=== PATIENT | female | born 1955 | race Caucasian/White ===

== ENCOUNTER 2019-05-25 15:05 | Outpatient (CLI) | payer MEDICARE, MEDICAID, SELFPAY ==
--- NOTE | 2019-05-25 15:08 | ECG_ITS ---
Measurements Intervals [place] Rate: 80 P: 62 FL: 159 QRS: 76 QRSD: 102 T: 39 QT: 385 QTc: 447 Interpretive Statements SINUS RHYTHM BORDERLINE ST-T WAVE ABNORMALITY- ANT/INF LEADS BASELINE ARTIFACT- I, II, III, AVR, AVL, AVF, V1-V6 BORDERLINE ECG Electronically Signed On 05-25-2019 16:51:55 NYLON HOT WIRE CUTTER by Des Canales D.O.
[2019-05-25 16:24] LABS: Prothrombin Time 12.7 Seconds (11.1-14.7)
[2019-05-25 16:25] LABS: Partial Thromboplastin Time 41.4 SECONDS (22.3-36.8)
[2019-05-25 16:27] LABS: Blood Urea Nitrogen 11 mg/dL (7-17); Calcium 9.7 mg/dL (8.4-10.2); Carbon Dioxide 32 mmol/L (22-30); Chloride 96 mmol/L (98-107); Estimated Glomerular Filt Rate > 60; Glucose 134 mg/dL (65-105); Potassium 3.3 mmol/L (3.4-5.0); Sodium 139 mmol/L (137-145)
== END 2019-05-25 15:06 | disposition home or self-care (01) ==
PROVIDERS: Anesthesiology; PCP Internal Medicine; Visit Provider Urology
DX: Z51.81 Encounter for therapeutic drug level monitoring (principal); F17.200 Nicotine dependence, unspecified, uncomplicated; N20.0 Calculus of kidney; R94.31 Abnormal electrocardiogram [ECG] [EKG]
CPT/HCPCS: 36415; 80048; 85610; 85730; 87086; 87088; 93005

== ENCOUNTER 2019-06-01 00:33 | Day surgery (SDC) | payer MEDICARE, MEDICAID, SELFPAY ==
[2019-05-22 10:57] VITALS: BMI 28.2
[2019-06-01] VITALS (7 sets, daily range): BP systolic 122–173; BP diastolic 65–95; PULSE 76–83; RESP 12–20; TEMP 36.8; O2SAT 91–99
--- NOTE | ~2019-06-01 | XR_ITS ---
EXAMINATION: XR abdomen/kub 1V DATE: 06/01/2019 06:44 INDICATION: Right renal stone. TECHNIQUE: A supine view of the abdomen on 2 radiographs was obtained. COMPARISON: CT abdomen and pelvis 05/07/2019 FINDINGS: There are no dilated loops of bowel. There are phleboliths in the pelvis. There is a 3 mm s tone in right kidney upper pole. There are vascular calcifications at the ester of the kidneys. Surgic al clips in the right upper quadrant are likely from cholecystectomy. IMPRESSION: 1. 3 mm right kidney stone. Reviewed, dictated and finalized at location A. MIXER OPERATOR IMPRESSION: 1. 3 mm right kidney stone.
--- NOTE | 2019-06-01 07:12 | WPDANESEPPF ---
Anes - Initial Pre Proc Eval Procedure: Operation Date: 06/01/19 08:30 Proposed Procedures p Right Extracorporeal Shock Wave Lithotripsy - Tacos Bowers MD Date/Time: 06/01/19 07:12 Surgeon: Tacos Bowers MD Pre Op Diagnosis: right kidney stone Patient Data Age: 63 Gender: F Height: 5 ft 6 in Weight: 79.38 kg Allergies Allergy/AdvReac Type Severity Reaction Status Date / Time amitriptyline [From Elavil] Allergy Unknown unknown Unverified 05/25/19 08:09 oxybutynin Allergy Unknown unknown Unverified 05/25/19 08:09 Penicillins Allergy Unknown Rash Verified 05/24/19 12:49 Sulfa (Sulfonamide Allergy Unknown Hives Verified 05/24/19 12:49 Antibiotics) sulfanilamide Allergy Unknown Hives Verified 05/24/19 12:49 tetracycline Allergy Unknown Nausea Verified 05/24/19 12:49 codeine AdvReac Unknown N/V Verified 05/24/19 12:49 AMITRIPTYLINE HCL Allergy Intermediate PSYCHOSIS Uncoded 05/24/19 12:49 Home Medications Medication Instructions Recorded Confirmed Type hydrochlorothiazide 25 mg tablet 25 mg PO DAILY #90 tablet 03/12/19 05/22/19 Rx aspirin 81 mg tablet,delayed 81 mg PO DAILY 04/05/19 05/22/19 History release carvedilol 3.125 mg tablet 3.125 mg PO Q12H #180 tablet 04/20/19 05/22/19 Rx venlafaxine 150 mg 150 mg PO DAILY #90 cap 04/20/19 05/22/19 Rx capsule,extended release 24 hr lovastatin 20 mg tablet 20 mg PO DAILY #90 tablet 04/23/19 05/22/19 Rx hydrocodone 10 mg-acetaminophen 1 tablet PO TID PRN #90 tablet 05/07/19 05/22/19 Rx 325 mg tablet alprazolam 1 mg tablet 1 mg PO TID PRN #90 tablet 05/10/19 05/22/19 Rx polyethylene glycol 3350 [Miralax] 17 g PO DAILY 05/22/19 05/22/19 History quetiapine [Seroquel] 300 mg PO QPM 05/22/19 05/22/19 History valacyclovir 2,000 mg PO BID PRN 05/22/19 05/22/19 History Patient hx anesthesia problems: none Family hx anesthesia problems: none [facility] Past Medical History Medical History Cholecystectomy planned Depression High cholesterol Kidney disease Kidney stones Pneumonia Urinary frequency Vision abnormalities Weight gain Surgical History Surgical History H/O colonoscopy History of esophagogastroduodenoscopy (EGD) History of laryngoscopy History of partial hysterectomy Hx of tonsillectomy Family History Family History Sibling Patient's brother is in good health Mother Family history of coronary artery disease Father Patient's father is Other Family history of mental disorder Social History Social History Smoking packs per day: 1 Smoking cigarettes per day: 20.0 Years smoked: 45 Smoking pack-years: 45.00 Smoking status: Heavy tobacco smoker Tobacco type: cigarettes Alcohol intake: never Anes - Eval Final PreProcedure Day of Procedure 06/01/19 07:12 Patient weight: overweight Heart: regular rate and rhythm Lungs: clear to auscultation Airway: Mallampati scale class II Neurological: alert and oriented Last oral intake: >/= 8 hours ASA classification: III Emergent: no Anesthetic plan: proceed Anesthesia type and monitoring: general LMA and standard monitoring Informed Consent: The patient's anesthetic plan and its attendant risks and benefits were discussed with the patient/family/POA. Questions were solicited and answers provided to the satisfaction of the patient/family/POA.
--- NOTE | 2019-06-01 07:18 | WPDHPUPDATE1 ---
History and Physical Update Update Date/Time: 06/01/19 07:18 History and Physical has been reviewed, including an updated exam of the patient. There are NO changes in the patient's condition. Risks, benefits, and alternatives have been discussed and questions answered. Patient agrees to proceed with procedure.
[2019-06-01] MEDS: LACTATED RINGERS 1,000 ML 30 ML IV CONT ×2 (08:05→09:43)
[2019-06-01] MEDS: levoFLOXacin 500 MG/D5W 100 ML 500 MG/100 ML BAG 100 MG IVPB (08:52)
--- NOTE | 2019-06-01 09:31 | PM.PROC ---
Procedure Note - Detailed Date of procedure: 06/01/19 Pre-op diagnosis: right kidney stone Post-op diagnosis: same Procedure performed: Right ESWL Description of procedure: The patient was brought to the operative suite where she was placed in the supine position on the Dornier lithotripsy table. The focal point of the lithotripter was placed first at a 6mm right mid-pole renal calculus. 1800 shocks were delivered at a power setting of 7. We then treated a smaller 3mm stone with an additional 700 shocks at the same power setting. There appeared to be good fragmentation of the stones. The patient tolerated the procedure well and was taken to the recovery room in good condition. Anesthesia: GLMA Surgeon: Tacos Bowers MD Estimated blood loss (mL): 0 Drains: No Packing: No Pathology: yes Complications: No immediate complications Condition: stable Disposition: PACU
[2019-06-01] MEDS: ONDANSETRON INJ 4 MG/2 ML VIAL IV PUSH (10:05)
== END 2019-06-01 11:25 | disposition home or self-care (01) ==
PROVIDERS: PCP Internal Medicine; Visit Provider Urology
PROC: (CPT 50590; principal; 2019-06-01 08:30)
DX: N20.0 Calculus of kidney (principal); E78.00 Pure hypercholesterolemia, unspecified; N28.9 Disorder of kidney and ureter, unspecified; F32.9 Major depressive disorder, single episode, unspecified; Z79.82 Long term (current) use of aspirin; F17.210 Nicotine dependence, cigarettes, uncomplicated
CPT/HCPCS: 50590; 36415; 74018; 85730; J0131; J1100; J1956; J2250; J2405; J2704; J7120

== ENCOUNTER 2019-06-12 12:05 | Outpatient (CLI) | payer MEDICARE, MEDICAID, SELFPAY ==
--- NOTE | ~2019-06-12 | XR_ITS ---
EXAMINATION: XR abdomen/kub 1V DATE: 06/12/2019 12:20 INDICATION: Right upper quadrant abdominal pain. TECHNIQUE: A supine view of the abdomen on 2 radiographs was obtained. COMPARISON: Abdomen radiographs 06/01/2019, CT abdomen and pelvis 05/15/2019 FINDINGS: There are no dilated loops of bowel. Surgical clips in the right upper quadrant are likely from cholecystectomy. There is a 3 mm stone in right kidney. There are phleboliths in right pelvis. T here are vascular calcifications at the ester of the kidneys. IMPRESSION: 1. 3 mm right kidney stone. Reviewed, dictated and finalized at location A. ESS TRAINER IMPRESSION: 1. 3 mm right kidney stone.
== END 2019-06-12 12:06 | disposition home or self-care (01) ==
LOC: ANHIMG 12:07
PROVIDERS: PCP Internal Medicine
DX: N20.0 Calculus of kidney (principal)
CPT/HCPCS: 74018

== ENCOUNTER 2019-07-06 08:13 | Outpatient (CLI) | payer MEDICARE, MEDICAID, SELFPAY ==
--- NOTE | ~2019-07-06 | CT_ITS ---
EXAMINATION: CT abdomen pelvis wo/w con DATE: 07/06/2019 09:25 INDICATION: Right upper quadrant abdominal and back pain TECHNIQUE: Computed tomography (CT) of the abdomen and pelvis was performed without and subsequently with 130 cc Omnipaque 350 intravenous contrast. Automated exposure control and iterative reconstructi on technique were employed. Exam dose: 1416.42 mGy-cm total exam DLP. COMPARISON: None. FINDINGS: The lung bases are clear of infiltrate or consolidation. Normal heart size. No pericardial or pleural effusion. Status post cholecystectomy. Approximately 3 mm and 5 mm nonspecific cystic lesions in the region of the pancreatic tail. Approximately 3 mm nonobstructing calculus of upper pole of right kidney. There are two approximately 7 mm right renal cysts. There are diverticula of the colon. No evidence of diverticulitis. No bowel obstruction or intraper itoneal free air. There is extensive abdominal aortic and renal and iliac artery calcification. No intraperitoneal or retroperitoneal mass lesion or lymphadenopathy or ascites. There is severe degenerative disc disease at L5-S1. There is grade 1 anterolisthesis at L4-5. Normal urinary bladder. Status post hysterectomy. IMPRESSION: Status post cholecystectomy Nonspecific 3mm and 5 mm pancreatic tail cystic lesions; consider [address] abdomen follow up Status post hysterectomy Nonobstructive right nephrolithiasis Right renal cysts Diverticulosis of the colon Reviewed, dictated and finalized at Location A. Reviewed, dictated and finalized at location B. IMPRESSION: Status post cholecystectomy Nonspecific 3mm and 5 mm pancreatic tail cystic lesions; consider [address] ab domen follow up Status post hysterectomy Nonobstructive right nephrolithiasis Right renal cysts Diverticulosis of the colon
[2019-07-06 09:00] LABS: Estimated Glomerular Filt Rate > 60
== END 2019-07-06 08:14 | disposition home or self-care (01) ==
PROVIDERS: PCP Internal Medicine; Visit Provider Urology
DX: N20.0 Calculus of kidney (principal); K57.30 Diverticulosis of large intestine without perforation or abscess without bleeding; Z90.49 Acquired absence of other specified parts of digestive tract
CPT/HCPCS: 36415; 74178; Q9967

== ENCOUNTER 2020-04-01 15:38 | Observation (INO) | payer MEDICARE, MEDICAID, SELFPAY ==
[2020-04-01] VITALS (17 sets, daily range): BP systolic 126–148; BP diastolic 59–84; PULSE 70–86; RESP 10–20; TEMP 35.7–37.1; O2SAT 91–99
--- NOTE | ~2020-04-01 | XR_ITS ---
EXAMINATION: XR chest 2V EXAM DATE: 04/01/2020 16:49 INDICATION: Chest pain left-sided chest pain since yesterday. Right jaw pain, COPD. TECHNIQUE: Frontal and lateral projections of the chest obtained and reviewed. Comparison is made to prior examination from 11/02/2018. FINDINGS: Some ill-defined small patchy bibasilar atelectasis or infection, clinical correlation. No pneumothorax or pleural effusion. Cardiomediastinal silhouette is normal. There is aortic arterioscle rosis. There are mild bony degenerative changes. There are cholecystectomy clips. IMPRESSION: Ill-defined small bibasilar atelectasis or infection, clinical correlation. Reviewed, dictated and finalized at location A. BOOKBINDER IMPRESSION: Ill-defined small bibasilar atelectasis or infection, clinical cor relation.
--- NOTE | 2020-04-01 15:39 | ED.GENADULT ---
HPI - General Adult General Chief complaint: Unspecified Stated complaint: LIGHTHEADED Time Seen by Provider: 04/01/20 15:38 Source: patient and EMS Mode of arrival: EMS Limitations: no limitations History of Present Illness HPI narrative: The patient is a 64 yo female with a PMH of COPD, HTN, HLD, who presents for evaluation of jaw pain and chest pain. Pt with jaw pain beginning one week ago, initially in the left jaw. Pain today was in the right jaw, started suddenly and lasted ten minutes. Pain was rated 5/10 in severity. Pt has some associated central chest tightness with the jaw pain today. Both of these lasted ten minutes and they are now resolved. Pt with associated nausea. Pt denies feeling sweaty, vomiting, or palpitations. No associated dyspnea. No pain currently. No back pain. She reports chronic cough. Pt primary care physician was contacted (Dr. Will) and he referred her to the nearest ED. Related Data Home Medications Medication Instructions Recorded Confirmed aspirin 81 mg tablet,delayed 81 mg PO DAILY 04/05/19 02/05/20 release polyethylene glycol 3350 [Miralax] 17 g PO DAILY 05/22/19 02/05/20 Allergies Allergy/AdvReac Type Severity Reaction Status Date / Time amitriptyline [From Elavil] Allergy Unknown unknown Verified 02/05/20 13:56 oxybutynin Allergy Unknown unknown Verified 02/05/20 13:56 Penicillins Allergy Unknown Rash Verified 02/05/20 13:56 Sulfa (Sulfonamide Allergy Unknown Hives Verified 02/05/20 13:56 Antibiotics) sulfanilamide Allergy Unknown Hives Verified 02/05/20 13:56 tetracycline Allergy Unknown Nausea Verified 02/05/20 13:56 ciprofloxacin AdvReac Intermediate Shakiness Verified 02/05/20 13:56 codeine AdvReac Unknown N/V Verified 02/05/20 13:48 AMITRIPTYLINE HCL Allergy Intermediate PSYCHOSIS Uncoded 02/05/20 13:48 Review of Systems Review of Systems: Narrative: CONSTITUTIONAL: Denies fever, chills, or sweats. EYES: Denies visual changes, redness, or discharge. ENT: Denies rhinorrhea, congestion, sore throat, or otalgia. CARDIOVASCULAR: Denies current chest pain, palpitations, or edema. RESPIRATORY: Reports chronic cough, no current dyspnea GASTROINTESTINAL: Denies current abdominal pain, nausea, vomiting, or diarrhea. GENITOURINARY: Denies dysuria or hematuria. SKIN: Denies rash or itching. MUSCULOSKELETAL: Denies back pain, joint pain, or myalgia. NEUROLOGIC: Denies headache, numbness, or weakness. [facility] Past Medical History Medical History Cholecystectomy planned Depression High cholesterol Hx of pancreatitis Kidney disease Kidney stones Pneumonia Postmenopausal Screening for breast cancer Screening for colon cancer Urinary frequency Vision abnormalities Weight gain Surgical History Surgical History H/O colonoscopy History of cholecystectomy History of esophagogastroduodenoscopy (EGD) History of laryngoscopy History of partial hysterectomy Hx of tonsillectomy Family History Family History Sibling Patient's brother is in good health Mother Family history of coronary artery disease Father Patient's father is Other Family history of mental disorder Social History Social History Smoking packs per day: 1 Smoking cigarettes per day: 20.0 Years smoked: 45 Smoking pack-years: 45.00 Smoking status: Current every day smoker Tobacco type: cigarettes Alcohol intake: never Exam Narrative: Exam Narrative: GENERAL: Awake, alert, conversant HEAD: Normocephalic, atraumatic. EYES: PERRLA and EOMI. ENT: Nares clear, no rhinorrhea or epistaxis. Mucous membranes moist. NECK: Supple. CHEST: No respiratory distress, breathing even and non labored, mild expiratory wheezing bilaterally HEART: Regular rate, sinus rhythm
--- NOTE | 2020-04-01 15:48 | ECG_ITS ---
Measurements Intervals [place] Rate: 79 P: 31 [place]: 172 QRS: 68 QRSD: 100 T: 11 QT: 379 QTc: 436 Interpretive Statements SINUS RHYTHM BORDERLINE ST-T WAVE ABNORMALITY- ANT/INF LEADS BASELINE ARTIFACT- I, II, III, AVR, AVL, AVF BORDERLINE ECG Electronically Signed On 04-01-2020 17:06:52 FIRST COAT OPERATOR by Des Canales D.O.
[2020-04-01 16:00] LABS: Basophils Absolute Auto 0.1 K/mm3 (0.0-0.1); Basophils Percent Auto 0.9 % (0.2-1.2); Eosinophils Absolute Auto 0.2 K/mm3 (0-0.3); Eosinophils Percent Auto 2.9 % (0-4.4); Hematocrit 41.8 % (37.0-47.0); Hemoglobin 14.8 g/dL (12.0-15.0); Immature Granulocyte Absolute 0.02 K/mm3 (0.00-0.031); Immature Granulocyte Percent A 0.3 % (0-0.5); Lymphocytes Absolute Auto 3.28 K/mm3 (0.9-3.2); Lymphocytes Percent Auto 43.2 % (18.3-44.2); Mean Corpuscular HGB Conc 35.4 g/dl (32-36); Mean Corpuscular Hemoglobin 31.6 pg (26-34); Mean Corpuscular Volume 89.3 fl (80-100); Mean Platelet Volume 8.6 fl (7.4-10.4); Monocytes Absolute Auto 0.6 K/mm3 (0.1-0.6); Monocytes Percent Auto 8.3 % (2.6-8.5); Neutrophils Absolute Auto 3.4 K/mm3 (1.3-6.7); Neutrophils Percent Auto 44.4 % (45.5-73.1); Platelet Count Result 251 k/mm3 (150-375); Red Blood Count 4.68 M/mm3 (4.2-5.4); Red Cell Distribution Width 13.5 % (11.5-14.5); White Blood Count 7.6 K/mm3 (4.5-10.0)
[2020-04-01 16:12] LABS: Anion Gap 7 mmol/L (8-16); Blood Urea Nitrogen 11 mg/dL (7-17); Calcium 9.7 mg/dL (8.4-10.2); Carbon Dioxide 33 mmol/L (22-30); Chloride 98 mmol/L (98-107); Estimated CRCL calculation 87 ml/min; Estimated Glomerular Filt Rate > 60; Glucose 109 mg/dL (65-105); Potassium 3.2 mmol/L (3.4-5.0); Prothrombin Time 13.5 Seconds (11.1-14.7); Sodium 138 mmol/L (137-145)
[2020-04-01 16:13] LABS: Partial Thromboplastin Time 41.7 SECONDS (22.3-36.8)
[2020-04-01] MEDS: ASPIRIN 81 MG CHEWABLE TABLET 324 MG PO (16:19)
[2020-04-01 16:24] LABS: Troponin I < 0.012 ng/mL (0.000-0.034)
[2020-04-01 17:01] LABS: D Dimer 0.37 ug/mL (<0.48)
[2020-04-01] MEDS: POTASSIUM CHLORIDE 20 MEQ PACKET (FOR LIQUID) 40 MEQ PO (17:14)
[2020-04-01] MEDS: NICOTINE (*PBKC) 21 MG PATCH 1 PATCH TRANSDERM (18:27)
[2020-04-01] MEDS: HYDROcodone/acetaminophen (*CRX) 10-325 MG TABLET 1 TAB PO ×2 (18:28→23:04)
[2020-04-01 19:39] LABS: Troponin I < 0.012 ng/mL (0.000-0.034)
--- NOTE | 2020-04-01 20:29 | ADMGEN ---
This patient, Jeniffer Weller, was admitted to IMU Room 232-01. Patient/family oriented to hospital policies and general routines including ID bracelet, bed and alarms, visiting hours, pain management, procedures, bathroom and other care routines, personal items, smoking policy, room service/diet, and visiting hours. Information on how to activate the Rapid Response Team has been discussed. Patient/Family are encouraged to report perceived risks to care and to ask questions if they do not understand what they are told or what they should do. Pt arrived at approximately 2024, report from REESE Chavez.
--- NOTE | 2020-04-01 20:39 | PM.IMHP ---
H&P: HPI History of Present Illness Date/Time: 04/01/20 20:39 Cheif Complaint: Chest pain Narrative: Jeniffer Weller is a 64 year old female with past medical history of COPD, tobacco abuse smoking 1 pack per day, depression, insomnia, hypertension, hyperlipidemia, herpes simplex who presents to the ED with complaints of chest pressure and right jaw ache. Last week she had a couple hour episode of left jaw pain which subsided spontaneously. Today she had right-sided jaw pain for 10 minutes with associated chest pressure sensation. The most recent episode onset was while she was in her car sitting in no distress or activity. She denies any diaphoresis lightheadedness or dizziness or any other associated symptoms. She states she may have had a stress test in the distant past but does not remember. She has family history of CAD, her mother post catheterization from a plaque rupture. She has no known COVID-19 exposures. He denies any fevers or chills or increased sputum production. She states from her COPD she has this chronic cough which is unchanged. On my evaluation patient was back to baseline. In the ED: Vitals stable. Potassium 3.2, given 40 mEq p.o. potassium. Other labs within normal limits. Troponins negative x2. EKG normal sinus rhythm rate 79. Chest x-ray showed ill-defined small bibasilar atelectasis or infection clinical correlation. Dr. Lin cardiology consulted in the ED. Patient admitted to observation for chest pain. Review of Systems Review of Systems: Narrative: Constitutional: No Fever, No Chills, No Night Sweats, No Fatigue, No Malaise ENT/Mouth: No Hearing Changes, No Ear Pain, No Nasal Congestion, No Sinus Pain, No Hoarseness, No sore throat, No Rhinorrhea, No Swallowing Difficulty Eyes: No Eye Pain, No Redness, No Vision Changes Cardiovascular: Dorsal chest pressure with right-sided jaw pain, No Palpitations, No Dyspnea on Exertion, No Orthopnea, No Claudication, No Edema Respiratory: Endorses chronic cough, stable sputum Gastrointestinal: No Vomiting, No Diarrhea, No Constipation, No Abdominal Pain, No Heartburn, No Hematochezia, No Melena. Endorses nausea which has resolved Genitourinary: No Dysuria, No Urinary Frequency, No Hematuria, No Urinary Incontinence, No Urgency Musculoskeletal: No Arthralgias, No Myalgias, No Joint Swelling, No Joint Stiffness, No Back Pain Skin: No Skin Lesions, No Pruritis, No Hair Changes Neuro: No Weakness, No Numbness, No Paresthesias, No Loss of Consciousness, No Syncope, No Dizziness, No Headache Psych: No Anxiety/Panic, No Depression, No Insomnia Heme: No Bruising, No Bleeding Lymph: No Adenopathy Endocrine: No Polyuria, No Polydipsia, No Temperature Intolerance PMFSH Past Medical History Medical History Cholecystectomy planned Depression High cholesterol Hx of pancreatitis Kidney disease Kidney stones Pneumonia Postmenopausal Screening for breast cancer Screening for colon cancer Urinary frequency Vision abnormalities Weight gain Surgical History Surgical History H/O colonoscopy History of cholecystectomy History of esophagogastroduodenoscopy (EGD) History of laryngoscopy History of partial hysterectomy Hx of tonsillectomy Family History Family History Sibling Patient's brother is in good health Mother Family history of coronary artery disease Father Patient's father is Other Family history of mental disorder Social History Social History Smoking packs per day: 1 Smoking cigarettes per day: 20.0 Years smoked: 50 Smoking pack-years: 50.00 Smoking status: Current every day smoker Tobacco type: cigarettes Alcohol intake: never Substance use: current Substance us
[2020-04-01] MEDS: QUEtiapine FUMARATE 100 MG TABLET 300 MG PO (23:04)
[2020-04-01] MEDS: LOVASTATIN 20 MG TABLET PO (23:04)
[2020-04-01] MEDS: carvediloL 3.125 MG TABLET PO (23:05)
[2020-04-01 23:51] LABS: Troponin I < 0.012 ng/mL (0.000-0.034)
[2020-04-02] VITALS (8 sets, daily range): BP systolic 122–131; BP diastolic 60–68; PULSE 72–80; RESP 18; TEMP 35.8–36.9; O2SAT 94–95
[2020-04-02 06:27] LABS: Cholesterol 167 mg/dL (0-200); HDL Direct 30 mg/dL; Triglycerides 220 mg/dL (<150)
[2020-04-02 06:38] LABS: LDL Cholesterol Direct 107 mg/dL
[2020-04-02 07:34] LABS: Anion Gap 5 mmol/L (8-16); Blood Urea Nitrogen 11 mg/dL (7-17); Calcium 9.3 mg/dL (8.4-10.2); Carbon Dioxide 32 mmol/L (22-30); Chloride 102 mmol/L (98-107); Estimated CRCL calculation 87 ml/min; Estimated Glomerular Filt Rate > 60; Glucose 99 mg/dL (65-105); Magnesium 2.1 mg/dL (1.6-2.3); Potassium 3.4 mmol/L (3.4-5.0); Sodium 139 mmol/L (137-145)
[2020-04-02] MEDS: VENLAFAXINE HCL XR 75 MG CAP.ER.24H 150 MG PO (09:08)
[2020-04-02] MEDS: hydroCHLOROthiazide 25 MG TABLET PO (09:08)
[2020-04-02] MEDS: ARIPiprazole 2 MG TABLET PO (09:08)
[2020-04-02] MEDS: ASPIRIN 81 MG CHEWABLE TABLET PO (09:08)
[2020-04-02] MEDS: carvediloL 3.125 MG TABLET PO (09:08)
[2020-04-02] MEDS: CHOLECALCIFEROL 1,000 UNITS TABLET 1000 UNITS PO (09:08)
[2020-04-02] MEDS: OMEGA 3 POLYUNSAT FATTY ACIDS 1 GM CAP PO (09:09)
[2020-04-02] MEDS: HYDROcodone/acetaminophen (*CRX) 10-325 MG TABLET 1 TAB PO (09:09)
[2020-04-02] MEDS: polyethylene glycoL 3350 17 GM POWD.PACK PO (09:09)
[2020-04-02] MEDS: POTASSIUM CHLORIDE 20 MEQ PACKET (FOR LIQUID) 40 MEQ PO (09:09)
[2020-04-02] MEDS: ENOXAPARIN 40 MG/0.4 ML SYRINGE SUB-Q (09:10)
--- NOTE | 2020-04-02 09:23 | PM.CNCAR ---
Assessment and Plan Assessment and plan (1) Unstable angina pectoris: Code(s): I20.0 - Unstable angina Status: Acute Assessment and Plan: She has atypical chest pain, with the jaw pain and central chest pain, however cardiac enzymes are negative and EKG is unremarkable. She needs to have a stress test, however could not be done today because she is still is PUI, will arrange for that tomorrow, or possibly if she is otherwise okay to be discharged home then will get it as an outpatient. Will check lipid profile treat accordingly, continue with aspirin (2) Nicotine addiction: Code(s): F17.200 - Nicotine dependence, unspecified, uncomplicated Status: Acute (3) Chronic obstructive pulmonary disease: Code(s): J44.9 - Chronic obstructive pulmonary disease, unspecified Status: Acute (4) Essential hypertension: Code(s): I10 - Essential (primary) hypertension Status: Acute (5) Person under investigation for COVID-19: Code(s): Z20.828 - Contact with and (suspected) exposure to other viral communicable diseases Status: Acute Assessment and Plan: Status is pending test was done yesterday Additional Plan Thank you for allowing me to participate in this patient's care, I will be following up with you. Please do not hesitate to call me for any other inquiry History of Present Illness History of Present Illness Consult date/time: 04/02/20 09:23 64 years old lady with history of smoking, history of dyslipidemia came to the hospital because of chest pain and jaw pain. Started having pain in the jaw area for about few days but yesterday had episode of sudden onset worsening shortness of breath and heaviness of the chest mostly retrosternal pain. Improved by the time she arrived to the hospital and she has been pain-free since but she had few more episodes of jaw pain. She has history of known COPD with a chronic cough which she has slight worsening of shortness of breath, and 1 episode of chest pain as above with multiple episode of jaw pain at mostly nonexertional. So far cardiac enzymes are negative and EKG is unremarkable. No known history of coronary artery disease, she gets occasional palpitation but no dizziness no lightheadedness no syncope and she has mild orthopnea but no PNDs no leg swelling Reason For Visit: Unstable angina, chest pain Review of Systems Cardiovascular: Cardiovascular: Reports as per HPI Respiratory: Respiratory: Reports cough and Reports dyspnea PMFSH Past Medical History Medical History Cholecystectomy planned Depression High cholesterol Hx of pancreatitis Kidney disease Kidney stones Pneumonia Postmenopausal Screening for breast cancer Screening for colon cancer Urinary frequency Vision abnormalities Weight gain Surgical History Surgical History H/O colonoscopy History of cholecystectomy History of esophagogastroduodenoscopy (EGD) History of laryngoscopy History of partial hysterectomy Hx of tonsillectomy Family History Family History Sibling Patient's brother is in good health Mother Family history of coronary artery disease Father Patient's father is Other Family history of mental disorder Social History Social History Smoking packs per day: 1 Smoking cigarettes per day: 20.0 Years smoked: 50 Smoking pack-years: 50.00 Smoking status: Current every day smoker Tobacco type: cigarettes Alcohol intake: never Substance use: current Substance use type: marijuana Other substance usage details: Daily Last use: This morning Spiritual care concerns: No Meds Home Medications and Allergies Home Medications Medication Instructions Recorded Confirmed Typ
--- NOTE | 2020-04-02 10:36 | PM.DS ---
DS: Admitting Diagnosis Admitting Diagnosis Admitting Diagnosis: Atypical Chest Pain, COVID PUI DS: Discharge Diagnosis Discharge Diagnosis (1) Unstable angina pectoris: Code(s): I20.0 - Unstable angina Status: Acute Assessment and Plan: This has resolved. Troponins negative x 3, EKG unremarkable. Heart score 3 (nonexertional symptoms low suspicion, EKG normal and troponins negative, 1 point for age,and 2 points for risk factors). DDx: atypical chest pain versus unstable angina. Discussed with Dr. Lin who has evaluated patient and okay with discharge from his standpoint; she will need stress test at some point as an outpatient. Patient unable to have stress test today as she is a PUI and is on isolation. D-dimer normal. Noted to have mild hypokalemia (replaced). VSS. discussed with patient who is comfortable with discharge with follow up with Cardiology and PCP as outpatient. Triglycerides 220; HDL 30. Lipid panel otherwise unremarkable. Will defer adjustments in meds to PCP/Cardiology F/u with PCP/Cardiology as outpatient Outpatient stress test (2) Hypokalemia: Code(s): E87.6 - Hypokalemia Status: Acute Assessment and Plan: potassium 3.4 this morning, given 40 mEq again this morning. F/u with PCP (3) Nicotine addiction: Code(s): F17.200 - Nicotine dependence, unspecified, uncomplicated Status: Acute Assessment and Plan: Smokes 1 pack per day, she rolls cigarettes herself. She has tried Chantix in the past. Suggested Wellbutrin is an option which she would like to consider with her PCP. Smoking cessation discussion for at least 4 minutes in length again this morning (4) Person under investigation for COVID-19: Code(s): Z20.828 - Contact with and (suspected) exposure to other viral communicable diseases Status: Acute Assessment and Plan: chest x-ray was concerning for possible pneumonia and was started on antibiotics and COVID swabbed in the ED. Patient's cough is chronic and she has had no fevers, no leukocytosis. ABx stopped as bacterial pneumonia is unlikely. COVID testing pending at time of discharge Will have Nursing follow up with results Advised her to continue to isolate Advised her to occasionally check her O2 sats with a pulse oximeter if she is feeling short of breath or having other respiratory issues DS: Summary Hospital Course Reason for hospitalization: atypical chest pain, COVID PUI Hospital Course: Date of arrival: 04/01/20 Date of discharge: 04/02/20 Patient is a 64 year old female with past medical history of COPD, tobacco abuse smoking 1 pack per day, depression, insomnia, hypertension, hyperlipidemia, herpes simplex who presented to the ED on 04/01 with complaints of chest pressure and right jaw ache. While in the ED, troponin was negative and EKG was grossly unremarkable. HEART score calculated in ED was felt to be 5 and was admitted for further evaluation of chest pain and for ACS rule out. She was found to be hypokalemic and this was replaced. CXR showed possible concerns for pneumonia and thus was swabbed for COVID. Dr. Lin (Cardiology) was consulted from the ED for further input. Please see H&P for further details. Patient was admitted to the hospitalist service for further evaluation. Serial troponins were negative x 3. Patient's chest pain had resolved by admission. Admitting provider felt HEART score was 3. Dr. Lin evaluated patient on 04/02 and felt that ACS was unlikley but felt that stress test would have to be performed sometime in the future. Given that she was a COVID PUI, she would not be able to have this done on 04/02. Given her clinical improvement, it was felt that she could be discharged home with follow up with Dr. Lin to obtain an outpatien
[2020-04-02] MEDS: ALPRAZolam (*CRX) 0.5 MG TABLET 1 MG PO (11:23)
[2020-04-02 12:24] LABS: SARS-CoV-2 RNA PCR Negative
--- NOTE | 2020-04-02 13:12 | PC.NURSE ---
Katherine, IMU nurse caring for patient states the patient's COVID results are negative. Patient was informed by REESE Murphy. ERIKA Matias.
== END 2020-04-02 12:40 | disposition home or self-care (01) ==
LOC: ANHED 18:32 → ANHIMU 18:40
PROVIDERS: Student in an Organized Health Care Education/Training Program; Admitting Provider Internal Medicine; Emergency Provider Emergency Medicine; PCP Internal Medicine; Visit Provider Physician Assistant
DX: R07.89 Other chest pain (principal); E87.6 Hypokalemia; Z20.828 Contact with and (suspected) exposure to other viral communicable diseases; R68.84 Jaw pain; J44.9 Chronic obstructive pulmonary disease, unspecified; B00.9 Herpesviral infection, unspecified; E78.5 Hyperlipidemia, unspecified; F17.210 Nicotine dependence, cigarettes, uncomplicated; F32.9 Major depressive disorder, single episode, unspecified; G47.00 Insomnia, unspecified; I10 Essential (primary) hypertension
CPT/HCPCS: 36415; 71046; 80048; 80061; 83735; 84484; 85025; 85380; 85610; 85730; 87635; 93005; 96365; 96372; 99285; A9270; C9803; G0378; J0456; J1650; U0003

== ENCOUNTER 2020-04-14 08:32 | Outpatient (CLI) | payer MEDICARE, MEDICAID, SELFPAY ==
--- NOTE | ~2020-04-14 | NM_ITS ---
EXAMINATION: NM felecia stress w perfusion DATE: 04/14/2020 12:01 INDICATION: Chest pain TECHNIQUE: Rest images were obtained following intravenous administration of 7.7 mCi Tc99m tetrofosmi n (Myoview). The patient was infused intravenously with Lexiscan (Regadenoson). Then, 24 mCi Tc99m te trofosmin (Myoview) was administered intravenously, and stress images were obtained in supine positio n. Additional prone post stress images were obtained. Data was reconstructed into short axis and hori zontal and vertical long axis SPECT images. Gated SPECT images were also obtained. COMPARISON: None. FINDINGS: There are regions of artifactual decreased activity along the inferior side of the heart on the supine images which normalizes on prone imaging likely related to diaphragmatic attenuation steph fact. There is no definite reversible or fixed perfusion abnormality to suggest ischemia or infarctio n. There is normal left ventricular chamber size, wall motion and ejection fraction. Left ventricul ar ejection fraction measures >70%. IMPRESSION: 1. Normal myocardial perfusion at rest and during stress. 2. Left ventricular ejection fraction measuring >70%. Reviewed, dictated and finalized at location A. E THERAPIST
--- NOTE | 2020-04-14 08:38 | EST_ITS ---
Patient Info Name: Jenfifer Weller Age: 64 years : 1955 Gender: Female Ht: 65 in Wt: 166 lbs BSA: 1.88 m2 Exam Date: 04/14/2020 10:00 AM Exam Location: [facility] Stress Patient Status: Outpatient Admit Date: 04/14/2020 Staff Ordering Physician: Josias Will DO Attending Provider: Josias Will DO Exercise Technologist: Lorena Love RDCS Exercise Physician: Des Canales DO Exam Type: CA stress felecia w NM Study Info Indications R07.9 - Chest pain, unspecified A regadenoson stress test was performed. Summary 1. 1. Negative lexiscan stress test for ischemic ST changes by ECG criteria. 2. 2. Baseline hypertension. 3. 3. Nuclear scan to follow and will be reported separately. Please correlate with it. 4. 4. Patient informed of the above results. Protocol: Lexiscan Stress ECG Details Stage: REST Duration (min): 6 min : 25 sec HR (bpm): 85 SBP (mmHg): 151 DBP (mmHg): 75 Stage: REST Duration (min): 9 min : 38 sec HR (bpm): 80 SBP (mmHg): 151 DBP (mmHg): 75 Stage: STAGE 1 Duration (min): 1 min : 0 sec HR (bpm): 92 SBP (mmHg): 144 DBP (mmHg): 78 Stage: RECOVERY Duration (min): 1 min : 0 sec HR (bpm): 99 SBP (mmHg): 148 DBP (mmHg): 76 Stage: RECOVERY Duration (min): 2 min : 0 sec HR (bpm): 100 SBP (mmHg): 148 DBP (mmHg): 76 Stage: RECOVERY Duration (min): 3 min : 0 sec HR (bpm): 98 SBP (mmHg): 159 DBP (mmHg): 74 Stage: RECOVERY Duration (min): 3 min : 4 sec HR (bpm): 98 SBP (mmHg): 159 DBP (mmHg): 74 Rest HR: 80 bpm Peak HR: 103 bpm Rest Sys BP: 151 mmHg Peak Sys BP: 159 mmHg Max Pred HR: 158 bpm % Max Pred HR: 65 % Target HR: 134 bpm Max RPP: 16,377 bpm*mmHg Termination Reason: Completed protocol Cardiac Symptoms: Nausea, Headache Total Time: 1 min : 0 sec Rest Rodriguez BP: 75 mmHg Peak Rodriguez BP: 74 mmHg Total Dose: 0.4 mg Resting ECG Sinus rhythm. Stress ECG No ST changes. Arrhythmias None. Report Signatures
== END 2020-04-14 08:33 | disposition home or self-care (01) ==
PROVIDERS: PCP Internal Medicine; Visit Provider Internal Medicine
DX: R07.89 Other chest pain (principal)
CPT/HCPCS: 78452; 93017; A9502; J2785

== ENCOUNTER 2020-05-24 11:13 | Emergency (ER) | payer MEDICARE, MEDICAID, SELFPAY ==
--- NOTE | ~2020-05-24 | XR_ITS ---
EXAMINATION: XR abdomen/kub 1V DATE: 05/24/2020 12:11 INDICATION: Right lower quadrant abdominal pain. TECHNIQUE: A supine view of the abdomen was obtained. COMPARISON: CT abdomen and pelvis 07/06/2019 FINDINGS: There are no dilated loops of bowel. Surgical clips in the right upper quadrant are likely from cholecystectomy. There is a 2 mm stone in right kidney. IMPRESSION: 1. Normal bowel gas pattern. Reviewed, dictated and finalized at location A. NISTRATIVE DIETITIAN
[2020-05-24 11:41] VITALS: BP 136/62; PULSE 78; RESP 18; TEMP 36.6; O2SAT 95
--- NOTE | 2020-05-24 11:41 | PC.NURSE ---
in br to obtain ua spec.
--- NOTE | 2020-05-24 11:42 | ED.GENADULT ---
HPI - General Adult General Chief complaint: Urogenital-Female Stated complaint: UTI Time Seen by Provider: 05/24/20 11:42 Source: patient and RN notes reviewed Mode of arrival: ambulatory Limitations: no limitations History of Present Illness HPI narrative: 64-year-old female presents with complaints of intermittent right lower abdominal pain and believes she has an urinary tract infection for the past 1-1.5 weeks. Jeniffer reports intermittent RLQ pain that continues after 1-1.5 weeks. Routine Hydrocodone with relief. Denies burning, frequency, and urgency with urination.? Denies pain with activity. Unknown injury to abdomen. Denies fever. No significant pelvic pain. No vaginal discharge. No concerns for STDs. Exacerbating factors consist of eating. Relieving factors consist of laying on abdomen and pain medication. Denies hematuria or vaginal bleeding. LMP hysterectomy. No flank pain. LBM 05/24/2020 normal per Jeniffer without blood. Denies nausea or vomiting. Tolerating liquids well.? Remains active. The patient reports she have not been diagnosed with COVID-19. The patient reports she is not waiting for the results of a COVID-19 lab test. The patient reports she do not have chills, weakness, or fatigue. The patient reports she do not have a new or worsening cough or shortness of breath. Denies chest pain. The patient reports she do not have any rhinorrhea, congestion, sore throat, loss of taste or smell, or diarrhea. Denies recent traveling. Denies concerns for COVID-19 or exposures been home with limited outdoor exposure except for essential household needs and return home. At this time, patient is not suspected of having COVID-19. Some parts of this dictation were generated by voice recognition software and may contain typographical and/or grammatical inaccuracies. Related Data Home Medications Medication Instructions Recorded Confirmed aspirin 81 mg tablet,delayed 81 mg PO DAILY 04/05/19 04/09/20 release polyethylene glycol 3350 [Miralax] 17 g PO DAILY 05/22/19 04/09/20 cholecalciferol (vitamin D3) 25 mcg PO DAILY 04/01/20 04/09/20 [Vitamin D3] lovastatin 20 mg PO HS 04/01/20 04/09/20 venlafaxine 150 mg PO DAILY 12/15/20 12/23/20 Allergies Allergy/AdvReac Type Severity Reaction Status Date / Time amitriptyline [From Elavil] Allergy Unknown Rash Verified 04/09/20 10:49 oxybutynin Allergy Unknown Hives Verified 04/09/20 10:49 Penicillins Allergy Unknown Rash Verified 04/09/20 10:49 Sulfa (Sulfonamide Allergy Unknown Hives Verified 04/09/20 10:49 Antibiotics) sulfanilamide Allergy Unknown Hives Verified 04/09/20 10:49 tetracycline Allergy Unknown Nausea Verified 04/09/20 10:49 ciprofloxacin AdvReac Intermediate Shakiness Verified 04/09/20 10:49 codeine AdvReac Unknown N/V Verified 04/09/20 10:49 AMITRIPTYLINE HCL Allergy Intermediate PSYCHOSIS Uncoded 04/09/20 10:49 Review of Systems Review of Systems: Narrative: CONSTITUTIONAL: Denies fever, chills, sweats. EYES: Denies visual changes, redness, discharge. ENT: Denies rhinorrhea, congestion, sore throat, otalgia. CARDIOVASCULAR: Denies chest pain, palpitations, edema. RESPIRATORY: Denies dyspnea, wheezing, cough. GASTROINTESTINAL: Complains of intermittent RT lower abdominal pain. Denies nausea, vomiting, diarrhea. GENITOURINARY: Denies dysuria (burning, frequency, and urgency), hematuria, abnormal discharge. SKIN: Denies rash or itching. MUSCULOSKELETAL: Denies acute back pain, joint pain, or myalgia. NEUROLOGIC: Denies numbness or focal weakness. PSYCHIATRIC: Denies anxiety or depression. All systems reviewed & are unremarkable except as noted in HPI and below. [facility] Past Medical History Medical History Cholecystectomy planned Depression High cholesterol Hx of pancreatitis Kidney disease Kidney stones Pneumonia Postmenopausal Screening for breast cancer Screening for colon c
== END 2020-05-24 12:28 | disposition home or self-care (01) ==
PROVIDERS: Emergency Provider Nurse Practitioner Family; PCP Internal Medicine
DX: R10.31 Right lower quadrant pain (principal); F17.210 Nicotine dependence, cigarettes, uncomplicated; E78.00 Pure hypercholesterolemia, unspecified; Z90.711 Acquired absence of uterus with remaining cervical stump
CPT/HCPCS: 74018; 81003; 99213; G0463

== ENCOUNTER 2020-06-30 13:14 | Outpatient (CLI) | payer MEDICARE, MEDICAID, SELFPAY | END 2020-06-30 13:15 | disposition home or self-care (01) | LOC: ANHCOVIDVC 13:14 | PROVIDERS: PCP Internal Medicine | DX: Z23 Encounter for immunization (principal) | CPT/HCPCS: 0001A; 91300 ==

== ENCOUNTER 2020-07-21 13:13 | Outpatient (CLI) | payer MEDICARE, MEDICAID, SELFPAY | END 2020-07-21 13:14 | disposition home or self-care (01) | LOC: ANHCOVIDVC 13:13 | PROVIDERS: PCP Internal Medicine | DX: Z23 Encounter for immunization (principal) | CPT/HCPCS: 0002A; 91300 ==

== ENCOUNTER 2021-01-10 10:07 | Emergency (ER) | payer MEDICARE, MEDICAID, SELFPAY ==
--- NOTE | 2021-01-10 10:17 | ED.GENADULT ---
HPI - General Adult General Chief complaint: Upper Respiratory Infection Stated complaint: congestion/cough Time Seen by Provider: 01/10/21 10:17 Source: patient Mode of arrival: ambulatory Limitations: no limitations History of Present Illness HPI narrative: 65-year-old female patient presents to the [facility] with complaints of cough, feeling fatigued, tired, fatigue, loss of appetite and runny nose. Patient states she had does have history of COPD and emphysema. Patient states she did get both her Covid vaccines as well as her flu shot. Patient states she is only been taking some coll-qnu-vzyimwl emergen-c. Patient denies any chest pain, shortness of breath. Patient denies being around anybody that has been positive for Covid that she is aware of. Related Data Home Medications Medication Instructions Recorded Confirmed aspirin 81 mg tablet,delayed 81 mg PO DAILY 04/05/19 01/10/21 release alprazolam [Xanax] 1 mg PO TID 01/10/21 01/10/21 atorvastatin 40 mg PO HS 01/10/21 01/10/21 bupropion HCl 150 mg PO QAM 01/10/21 01/10/21 hydrocodone-acetaminophen 1 tablet PO TID 01/10/21 isosorbide mononitrate 30 mg PO DAILY 01/10/21 01/10/21 nitroglycerin 0.4 mg SUBLINGUAL ONCE 01/10/21 01/10/21 potassium chloride 10 meq PO DAILY 01/10/21 01/10/21 venlafaxine [Effexor XR] mg PO DAILY 01/10/21 Allergies Allergy/AdvReac Type Severity Reaction Status Date / Time amitriptyline [From Elavil] Allergy Unknown Rash Verified 01/10/21 10:38 oxybutynin Allergy Unknown Hives Verified 01/10/21 10:38 Penicillins Allergy Unknown Rash Verified 01/10/21 10:38 Sulfa (Sulfonamide Allergy Unknown Hives Verified 01/10/21 10:38 Antibiotics) sulfanilamide Allergy Unknown Hives Verified 01/10/21 10:38 tetracycline Allergy Unknown Nausea Verified 01/10/21 10:38 ciprofloxacin AdvReac Intermediate Shakiness Verified 01/10/21 10:38 codeine AdvReac Unknown N/V Verified 01/10/21 10:38 AMITRIPTYLINE HCL Allergy Intermediate PSYCHOSIS Uncoded 01/10/21 10:38 Review of Systems Review of Systems: CONSTITUTIONAL: Denies fever, chills, or sweats. Positive fatigue EYES: Denies visual changes, redness, or discharge. ENT: Positive rhinorrhea, congestion, denies sore throat, or otalgia. CARDIOVASCULAR: Denies chest pain, palpitations, or edema. RESPIRATORY: Positive cough, denies dyspnea. GASTROINTESTINAL: Denies abdominal pain, nausea, vomiting, or diarrhea. GENITOURINARY: Denies dysuria or hematuria. SKIN: Denies rash or itching. MUSCULOSKELETAL: Denies back pain, joint pain, or myalgia. NEUROLOGIC: Denies headache, numbness, or weakness. PSYCHIATRIC: Denies anxiety or depression. [facility] Past Medical History Medical History Cholecystectomy planned Depression High cholesterol Hx of pancreatitis Kidney disease Kidney stones Pneumonia Postmenopausal Screening for breast cancer Screening for colon cancer Urinary frequency Vision abnormalities Weight gain Surgical History Surgical History H/O colonoscopy History of cholecystectomy History of esophagogastroduodenoscopy (EGD) History of laryngoscopy History of partial hysterectomy Hx of tonsillectomy Family History Family History Sibling Patient's brother is in good health Mother Family history of coronary artery disease Father Patient's father is Other Family history of mental disorder Social History Social History Smoking packs per day: 1 Smoking cigarettes per day: 20.0 Years smoked: 50 Smoking pack-years: 50.00 Smoking status: Current every day smoker Tobacco type: cigarettes Second hand tobacco smoke exposure: No Alcohol intake: never Substance use: current Substance use type: marijuana Other substance usage details: Daily
[2021-01-10 10:19] VITALS: BP 144/72; PULSE 84; RESP 18; TEMP 36.8; O2SAT 96
== END 2021-01-10 10:59 | disposition home or self-care (01) ==
PROVIDERS: Emergency Provider Nurse Practitioner Family; PCP Student in an Organized Health Care Education/Training Program
DX: J06.9 Acute upper respiratory infection, unspecified (principal); T78.40XA Allergy, unspecified, initial encounter; F17.210 Nicotine dependence, cigarettes, uncomplicated; Z79.82 Long term (current) use of aspirin; Z79.891 Long term (current) use of opiate analgesic; Z20.822 Contact with and (suspected) exposure to COVID-19
CPT/HCPCS: 87426; 87804; 99213; C9803; G0463

== ENCOUNTER 2021-12-31 09:15 | Outpatient (CLI) | payer MEDICARE, MEDICAID, SELFPAY ==
--- NOTE | ~2021-12-31 | CT_ITS ---
EXAMINATION: CT lung screening DATE: 12/31/2021 09:32 INDICATION: Personal history of nicotine dependence, current smoker with 50 pack year history TECHNIQUE: Computed tomography (CT) of the chest was performed without intravenous contrast. The dose -length product (DLP) was 86.01 mGy-cm. Automated exposure control and iterative reconstruction techn [employer] were employed. COMPARISON: 07/19/2011 FINDINGS: There is a 4 mm nodule of the right upper lobe on image 70. There is mild emphysema. The petar ngs are free of acute opacities. No pleural effusion or pneumothorax. No pathologically enlarged thor acic lymph nodes are identified. The heart size is normal. Calcified coronary artery atherosclerosis is noted. There is moderate thoracic spondylosis. IMPRESSION: 1. Lung-RADS category 2: Benign appearance or behavior. Continue annual screening with noncontrast lo w-dose chest CT in 12 months. Reviewed, dictated and finalized at location B. IMPRESSION: 1. Lung-RADS category 2: Benign appearance or behavior. Continue annual screeni ng with noncontrast low-dose chest CT in 12 months.
== END 2021-12-31 09:16 | disposition home or self-care (01) ==
PROVIDERS: PCP Student in an Organized Health Care Education/Training Program; Visit Provider Student in an Organized Health Care Education/Training Program
DX: Z12.2 Encounter for screening for malignant neoplasm of respiratory organs (principal); F17.210 Nicotine dependence, cigarettes, uncomplicated
CPT/HCPCS: 71271

== ENCOUNTER 2022-02-01 07:40 | Outpatient (CLI) | payer MEDICARE, MEDICAID, SELFPAY ==
--- NOTE | ~2022-02-01 | XR_ITS ---
EXAMINATION: XR abdomen/kub 1V INDICATION: Gross hematuria TECHNIQUE: Supine views of the abdomen were obtained on 2 radiographs. COMPARISON: CT from today FINDINGS: There is a 2 mm nonobstructing stone of the right kidney upper pole. Vascular calcification s are noted in the left renal hilum. There are no dilated loops of bowel. There are phleboliths of th e pelvis. Cholecystectomy clips are noted. IMPRESSION: 1. Nonobstructing right nephrolithiasis. Reviewed, dictated and finalized at location A.
--- NOTE | ~2022-02-01 | CT_ITS ---
EXAMINATION: CT abdomen pelvis wo/w con DATE: 02/01/2022 08:31 INDICATION: Gross hematuria TECHNIQUE: Computed tomography (CT) of the abdomen and pelvis was performed without intravenous contr ast. CT of the abdomen and pelvis was then performed with a total of 130 mL Omnipaque 350 intravenous contrast using a double-bolus technique for simultaneous opacification of the renal parenchyma and r enal collecting system. The dose-length product (DLP) was 1242.64 mGy-cm. Automated exposure control and iterative reconstruction technique were employed. COMPARISON: 07/06/2019, 04/19/2016 FINDINGS: Minimal dependent atelectasis is present in the lung bases. The heart size is normal. The g allbladder is surgically absent. There is mild enlargement of the common bile duct and central intrah epatic ducts which is likely due to post cholecystectomy state. The liver, spleen, and adrenal glands are normal. There are stable cystic lesions in the tail the pancreas measuring 3 mm and 5 mm. No lynsey picious renal or urothelial lesion is identified. Cysts of the kidneys measure up to 1.8 cm on the ri ght. There is no hydronephrosis or hydroureter. There is a 2 mm nonobstructing stone of the right kid eliu. No pathologically enlarged abdominal or pelvic lymph nodes are identified. There is no free intr aperitoneal gas or evidence of bowel obstruction. There is calcified atherosclerosis of the aorta and many of the other arteries. There is severe lumbar spondylosis. There is a fat-containing umbilical hernia. IMPRESSION: 1. No CT correlate for the patient's symptoms. Nonobstructing right nephrolithiasis. 2. Stable cystic lesions of the pancreatic tail. Follow-up pancreas protocol CT or MRI without and wi th contrast in two years is recommended. Reviewed, dictated and finalized at location A. IMPRESSION: 1. No CT correlate for the patient's symptoms. Nonobstructing right nephrolithi asis. 2. Stable cystic lesions of the pancreatic tail. Follow-up pancreas protocol CT or MRI without and with contrast in two years is recommended.
[2022-02-01 08:08] LABS: Estimated Glomerular Filt Rate > 60
== END 2022-02-01 07:41 | disposition home or self-care (01) ==
PROVIDERS: PCP Student in an Organized Health Care Education/Training Program; Visit Provider Urology
DX: R31.0 Gross hematuria (principal); N20.0 Calculus of kidney; K86.2 Cyst of pancreas
CPT/HCPCS: 74018; 74178; Q9967

== ENCOUNTER 2022-03-02 16:56 | Observation (INO) | payer MEDICARE, MEDICAID, SELFPAY ==
[2022-03-02] VITALS (35 sets, daily range): BP systolic 104–143; BP diastolic 60–80; PULSE 63–79; RESP 12–21; TEMP 36.6–36.8; O2SAT 90–100; BMI 26.6
--- NOTE | 2022-03-02 | ECG_ITS ---
Measurements Intervals [place] Rate: 66 P: 31 IN: 176 QRS: 62 QRSD: 99 T: 40 QT: 387 QTc: 407 Interpretive Statements SINUS RHYTHM BASELINE ARTIFACT- I, II, III, AVR, AVL, AVF, V6 NORMAL ECG COMPARED TO ECG 04/01/2020 15:48:56 NO SIGNIFICANT CHANGES Electronically Signed On 03-03-2022 12:04:33 HEEL CASER by Des Canales D.O.
--- NOTE | ~2022-03-02 | XR_ITS ---
EXAMINATION: XR chest 2V DATE: 03/02/2022 17:24 INDICATION: Chest pain TECHNIQUE: AP and lateral views of the chest are obtained. COMPARISON: 04/01/2020 FINDINGS: There are minimal airspace opacities of the lung bases. No pleural effusion or pneumothorax . The cardiomediastinal silhouette is normal. There is severe thoracic spondylosis. IMPRESSION: 1. Minimal bibasilar airspace opacity, consistent with atelectasis versus pneumonia Reviewed, dictated and finalized at location F. LER DRIVER IMPRESSION: 1. Minimal bibasilar airspace opacity, consistent with atelectasis versus pneum onia
--- NOTE | 2022-03-02 16:58 | ECG_ITS ---
Measurements Intervals [place] Rate: 67 P: 35 CA: 216 QRS: 48 QRSD: 93 T: 37 QT: 383 QTc: 405 Interpretive Statements SINUS RHYTHM WITH FIRST DEGREE AV BLOCK BASELINE ARTIFACT- I, II, III, AVR, AVL BORDERLINE ECG COMPARED TO ECG 04/01/2020 15:48:56 FIRST DEGREE AV BLOCK NOW PRESENT Electronically Signed On 03-03-2022 5:50:04 BUTTON PUNCHER by Des Canales D.O.
--- NOTE | 2022-03-02 17:21 | ED.CHESTPAIN ---
HPI - Chest Pain General Chief Complaint: Chest Pain Stated Complaint: cp with medial pain x 1 week Time Seen by Provider: 03/02/22 17:03 History of Present Illness HPI narrative: Patient is a 66-year-old female with a history of CAD, hyperlipidemia, hypertension presenting with chest pain. Patient states that she has had intermittent chest pain associated with shortness of breath for the last week or two. States that she saw her primary care provider who spoke with her geospatial extractor analysis and they increased her atorvastatin as well as her carvedilol. States that they also advised that she increase her Imdur. She made these changes sometime last week. Unfortunately, she continues to have intermittent chest pain and pressure that is worsened with exertion. States that she is taking her nitro numerous times per day. States that this does improve the pain. She states that she was told she has a 60% blockage in her right coronary in summer 2020. States that she lives alone and she is afraid of having a heart attack. She denies fevers, headache, numbness or weakness, back pain, abdominal pain, nausea or vomiting, diarrhea, dysuria, leg swelling. Related Data Home Medications Medication Instructions Recorded Confirmed aspirin 81 mg tablet,delayed 81 mg PO DAILY 04/05/19 03/02/22 release (Aspir-) alprazolam 1 mg tablet (Xanax) 1 mg PO TID 01/10/21 03/02/22 atorvastatin 40 mg tablet (Lipitor) 40 mg PO HS 01/10/21 03/02/22 bupropion HCl 150 mg 24 hr tablet, 150 mg PO QAM 01/10/21 03/02/22 extended release (Wellbutrin XL) hydrocodone 10 mg-acetaminophen 1 tablet PO TID 01/10/21 03/02/22 325 mg tablet isosorbide mononitrate 30 mg 60 mg PO DAILY 01/10/21 03/02/22 tablet,extended release 24 hr nitroglycerin 0.4 mg sublingual 0.4 mg sublingual ONCE 01/10/21 03/02/22 tablet potassium chloride 10 mEq 10 meq PO DAILY 01/10/21 03/02/22 tablet,extended release (K-Tab) carvedilol 6.25 mg tablet (Coreg) 12.5 mg PO Q12H 03/02/22 03/02/22 venlafaxine 150 mg See Rx Instructions .Route .COMPLEX 03/02/22 03/02/22 capsule,extended release 24 hr (Effexor XR) Allergies Allergy/AdvReac Type Severity Reaction Status Date / Time amitriptyline [From Elavil] Allergy Unknown Rash Verified 01/10/21 10:38 oxybutynin Allergy Unknown Hives Verified 01/10/21 10:38 Penicillins Allergy Unknown Rash Verified 01/10/21 10:38 Sulfa (Sulfonamide Allergy Unknown Hives Verified 01/10/21 10:38 Antibiotics) sulfanilamide Allergy Unknown Hives Verified 01/10/21 10:38 tetracycline Allergy Unknown Nausea Verified 01/10/21 10:38 ciprofloxacin AdvReac Intermediate Shakiness Verified 01/10/21 10:38 codeine AdvReac Unknown N/V Verified 01/10/21 10:38 AMITRIPTYLINE HCL Allergy Intermediate PSYCHOSIS Uncoded 01/10/21 10:38 Review of Systems Review of Systems: All systems reviewed & are unremarkable except as noted in HPI and below PMFSH Past Medical History Medical History Cholecystectomy planned Depression High cholesterol Hx of pancreatitis Kidney disease Kidney stones Pneumonia Postmenopausal Screening for breast cancer Screening for colon cancer Urinary frequency Vision abnormalities Weight gain Surgical History Surgical History H/O colonoscopy History of cholecystectomy History of esophagogastroduodenoscopy (EGD) History of laryngoscopy History of partial hysterectomy Hx of tonsillectomy Family History Family History Sibling Patient's brother is in good health Mother Family history of coronary artery disease Father Patient's father is Other Family history of mental disorder Social History Social History Smoking packs per day: 1 Smoking cigarettes per day: 20.0 Years smoked: 52 Smoking pack-years:
[2022-03-02 17:53] LABS: Basophils Absolute Auto 0.1 K/mm3 (0.0-0.1); Basophils Percent Auto 0.8 % (0.2-1.2); Eosinophils Percent Auto 11.4 % (0-4.4); Hematocrit 37.5 % (37.0-47.0); Immature Granulocyte Absolute 0.02 K/mm3 (0.00-0.031); Immature Granulocyte Percent A 0.2 % (0-0.5); Lymphocytes Absolute Auto 3.59 K/mm3 (0.9-3.2); Mean Corpuscular HGB Conc 34.7 g/dl (32-36); Mean Corpuscular Hemoglobin 31.3 pg (26-34); Mean Corpuscular Volume 90.1 fl (80-100); Mean Platelet Volume 8.5 fl (7.4-10.4); Monocytes Absolute Auto 0.6 K/mm3 (0.1-0.6); Monocytes Percent Auto 6.8 % (2.6-8.5); Neutrophils Absolute Auto 3.5 K/mm3 (1.3-6.7); Neutrophils Percent Auto 39.8 % (45.5-73.1); Platelet Count Result 264 k/mm3 (150-375); Red Blood Count 4.16 M/mm3 (4.2-5.4); Red Cell Distribution Width 13.2 % (11.5-14.5); White Blood Count 8.8 K/mm3 (4.5-10.0)
[2022-03-02 18:03] LABS: INR 1.1; Prothrombin Time 13.9 Seconds (11.1-14.7)
[2022-03-02 18:04] LABS: Partial Thromboplastin Time 42.2 SECONDS (22.3-36.8)
[2022-03-02 18:05] LABS: Alanine Aminotransferase 20 U/L (6-35); Albumin Level 4.2 g/dL (3.5-5.1); Alkaline Phosphatase 66 U/L (38-126); Anion Gap 9 mmol/L (8-16); Aspartate Amino Transferase 22 U/L (14-36); Bilirubin,Total 0.4 mg/dL (0.2-1.3); Blood Urea Nitrogen 13 mg/dL (7-17); Calcium 9.3 mg/dL (8.4-10.2); Carbon Dioxide 30 mmol/L (22-30); Chloride 100 mmol/L (98-107); Estimated CRCL calculation 72 ml/min; Estimated Glomerular Filt Rate > 60; Glucose 97 mg/dL (65-110); Lipase 41 U/L (23-300); Potassium 3.6 mmol/L (3.4-5.0); Sodium 139 mmol/L (137-145)
[2022-03-02 18:16] LABS: Troponin I < 0.012 ng/mL (0.000-0.034)
--- NOTE | 2022-03-02 19:44 | PM.IMHP ---
H&P: HPI History of Present Illness Date/Time: 03/02/22 19:44 Chief Complaint: 66 years old female with past medical history of coronary artery disease hypertension hyperlipidemia cardiac catheterization with positive 60% blockage according to the patient and 2020 presented to the hospital with chest pain intermittent started 2 weeks ago worsening gradually improved with nitrate patient has increased the dose of Imdur without improvement associated with shortness of breath with activity at the ER were EKG was done no significant finding troponin was not elevated patient was admitted to the hospital for further evaluation and treatment of chest pain concern for stable angina chest x-ray shows atelectasis versus pneumonia unlikely patient has pneumonia most likely patient has atelectasis Patient was recently treated at [facility] for pneumonia Patient denies fever chills or worsening cough Review of Systems Review of Systems: Twelve system review was done was negative except above PMFSH Past Medical History Medical History Cholecystectomy planned Depression High cholesterol Hx of pancreatitis Kidney disease Kidney stones Pneumonia Postmenopausal Screening for breast cancer Screening for colon cancer Urinary frequency Vision abnormalities Weight gain Surgical History Surgical History H/O colonoscopy History of cholecystectomy History of esophagogastroduodenoscopy (EGD) History of laryngoscopy History of partial hysterectomy Hx of tonsillectomy Family History Family History Sibling Patient's brother is in good health Mother Family history of coronary artery disease Father Patient's father is Other Family history of mental disorder Social History Social History Smoking packs per day: 1 Smoking cigarettes per day: 20.0 Years smoked: 50 Smoking pack-years: 50.00 Smoking status: Current every day smoker Tobacco type: cigarettes Second hand tobacco smoke exposure: No Alcohol intake: never Substance use: current Substance use type: marijuana Other substance usage details: Daily Last use: This morning Spiritual care concerns: No Meds Home Medications and Allergies Home Medications Medication Instructions Recorded Confirmed Type aspirin 81 mg tablet,delayed 81 mg PO DAILY 04/05/19 01/10/21 History release (Aspir-) quetiapine 300 mg tablet (Seroquel) 300 mg PO QPM #90 tabs 01/07/20 01/10/21 Rx carvedilol 6.25 mg tablet 6.25 mg PO Q12H #60 tabs 05/12/20 01/10/21 Rx hydrochlorothiazide 25 mg tablet 25 mg PO DAILY #90 tabs 08/27/20 01/10/21 Rx alprazolam 1 mg tablet (Xanax) 1 mg PO TID 01/10/21 01/10/21 History atorvastatin 40 mg tablet 40 mg PO HS 01/10/21 01/10/21 History bupropion HCl 150 mg 24 hr tablet, 150 mg PO QAM 01/10/21 01/10/21 History extended release cetirizine 10 mg tablet (Zyrtec) 10 mg PO DAILY #30 tabs 01/10/21 Rx hydrocodone 10 mg-acetaminophen 1 tablet PO TID 01/10/21 History 325 mg tablet isosorbide mononitrate 30 mg 30 mg PO DAILY 01/10/21 01/10/21 History tablet,extended release 24 hr nitroglycerin 0.4 mg sublingual 0.4 mg sublingual ONCE 01/10/21 01/10/21 History tablet potassium chloride 10 mEq 10 meq PO DAILY 01/10/21 01/10/21 History tablet,extended release venlafaxine 150 mg See Rx Instructions .Route 03/24/21 Rx capsule,extended release 24 hr .COMPLEX #90 caps Allergies Allergy/AdvReac Type Severity Reaction Status Date / Time amitriptyline [From Elavil] Allergy Unknown Rash Verified 01/10/21 10:38 oxybutynin Allergy Unknown Hives Verified 01/10/21 10:38 Penicillins Allergy Unknown Rash Verified 01/10/21 10:38 Sulfa (Sulfonamide Allergy Unknown Hives Verified 01/10/21
[2022-03-02] MEDS: SODIUM CHLORIDE 0.9% IV 1,000 ML 100 ML IV CONT (20:22)
[2022-03-02 20:28] LABS: Amphetamine Screen Urine Negative (Negative); Barbiturate Screen Urine Negative (Negative); Benzodiazepines Screen Urine Positive (Negative); Cannabinoid Screen Urine Positive (Negative); Cocaine Screen Urine Negative (Negative); Methadone Screen Urine Negative (Negative); Opiate Screen Urine Positive (Negative); Phencyclidine Screen Urine Negative (Negative)
[2022-03-02 20:32] LABS: Troponin I < 0.012 ng/mL (0.000-0.034)
[2022-03-02] MEDS: ENOXAPARIN 40 MG/0.4 ML SYRINGE SUB-Q (20:43)
[2022-03-02] MEDS: ASPIRIN 325 MG ENTERIC TABLET PO (20:44)
[2022-03-02 20:58] LABS: Influenza A QL RT-PCR Negative (Negative); Influenza B QL RT-PCR Negative (Negative); SARS-CoV-2 RNA PCR Negative
--- NOTE | 2022-03-02 22:50 | PC.NURSE ---
Informed tech took [address] Lozada notified. No new orders.
--- NOTE | 2022-03-02 23:15 | ADMGEN ---
This patient, Jeniffer Weller, was admitted to IMU Room 206-01. Patient/family oriented to hospital policies and general routines including ID bracelet, bed and alarms, visiting hours, pain management, procedures, bathroom and other care routines, personal items, smoking policy, room service/diet, and visiting hours. Information on how to activate the Rapid Response Team has been discussed. Patient/Family are encouraged to report perceived risks to care and to ask questions if they do not understand what they are told or what they should do.
[2022-03-03] VITALS (27 sets, daily range): BP systolic 99–134; BP diastolic 45–73; PULSE 64–85; RESP 12–20; TEMP 36.3–37.3; O2SAT 91–96
[2022-03-03 00:13] LABS: Troponin I < 0.012 ng/mL (0.000-0.034)
[2022-03-03] MEDS: carvediloL 6.25 MG TABLET PO ×3 (00:50→20:35)
[2022-03-03] MEDS: QUEtiapine FUMARATE 100 MG TABLET 300 MG PO ×2 (00:50→20:35)
[2022-03-03] MEDS: FAMOTIDINE 20 MG TABLET PO ×3 (00:50→20:35)
[2022-03-03 04:26] LABS: Basophils Absolute Auto 0.1 K/mm3 (0.0-0.1); Basophils Percent Auto 0.8 % (0.2-1.2); Eosinophils Percent Auto 11.6 % (0-4.4); Hematocrit 39.1 % (37.0-47.0); Hemoglobin 13.5 g/dL (12.0-15.0); Immature Granulocyte Absolute 0.02 K/mm3 (0.00-0.031); Immature Granulocyte Percent A 0.2 % (0-0.5); Lymphocytes Absolute Auto 4.09 K/mm3 (0.9-3.2); Mean Corpuscular HGB Conc 34.5 g/dl (32-36); Mean Corpuscular Hemoglobin 31.7 pg (26-34); Mean Corpuscular Volume 91.8 fl (80-100); Mean Platelet Volume 8.5 fl (7.4-10.4); Monocytes Absolute Auto 0.6 K/mm3 (0.1-0.6); Monocytes Percent Auto 6.3 % (2.6-8.5); Neutrophils Percent Auto 34.1 % (45.5-73.1); Platelet Count Result 254 k/mm3 (150-375); Red Blood Count 4.26 M/mm3 (4.2-5.4); Red Cell Distribution Width 13.2 % (11.5-14.5); White Blood Count 8.7 K/mm3 (4.5-10.0)
[2022-03-03 04:42] LABS: Alanine Aminotransferase 17 U/L (6-35); Albumin Level 3.9 g/dL (3.5-5.1); Alkaline Phosphatase 67 U/L (38-126); Anion Gap 8 mmol/L (8-16); Aspartate Amino Transferase 24 U/L (14-36); Bilirubin,Total 0.3 mg/dL (0.2-1.3); Blood Urea Nitrogen 12 mg/dL (7-17); Calcium 8.7 mg/dL (8.4-10.2); Carbon Dioxide 28 mmol/L (22-30); Chloride 105 mmol/L (98-107); Estimated CRCL calculation 85 ml/min; Estimated Glomerular Filt Rate > 60; Glucose 102 mg/dL (65-110); Potassium 3.5 mmol/L (3.4-5.0); Sodium 141 mmol/L (137-145)
[2022-03-03] MEDS: SODIUM CHLORIDE 0.9% IV 1,000 ML 100 ML IV CONT ×2 (06:38→20:34)
[2022-03-03] MEDS: ATORVASTATIN 40 MG TABLET PO (08:59)
[2022-03-03] MEDS: ISOSORBIDE MONONITRATE 30 MG TAB.ER.24H PO (08:59)
[2022-03-03] MEDS: LORazepam (*CRX) 1 MG TABLET PO ×2 (08:59→17:41)
[2022-03-03] MEDS: ASPIRIN 325 MG ENTERIC TABLET PO (08:59)
[2022-03-03] MEDS: ENOXAPARIN 40 MG/0.4 ML SYRINGE SUB-Q (08:59)
--- NOTE | 2022-03-03 12:19 | PM.IMPN ---
Progress Note: A&P Assessment and Plan (1) Chest pain: Code(s): R07.9 - Chest pain, unspecified Status: Acute Assessment and Plan: Cardiac enzymes negative. Patient is still complaining of chest pain. Cardiology consult Full-dose aspirin Atorvastatin Coreg Imdur P.r.n. nitro (2) Infiltrate of lung present on chest x-ray: Code(s): R91.8 - Other nonspecific abnormal finding of lung field Status: Acute Assessment and Plan: Unlikely patient has pneumonia Patient has history of pancreatic cystic lesion follow-up with PCP as outpatient (3) Essential hypertension: Code(s): I10 - Essential (primary) hypertension Status: Acute Assessment and Plan: Pending home medication reconciliation (4) Hyperlipidemia, unspecified: Qualifiers: Hyperlipidemia type: unspecified Qualified Code(s): E78.5 - Hyperlipidemia, unspecified Code(s): E78.5 - Hyperlipidemia, unspecified Status: Acute Assessment and Plan: Atorvastatin Subjective Date/time seen: 03/03/22 12:19 Still having chest pain. Exam Narrative: GENERAL: Well appearing, well-nourished, non-toxic, in no acute distress. HEAD: Normocephalic, atraumatic. NECK: Supple. No adenopathy, no masses. RESPIRATORY: Airway patent, respirations nonlabored. Clear to auscultation bilaterally, no rales, rhonchi, wheezing. CARDIOVASCULAR: Regular rate and rhythm without murmurs, rubs, or gallops. Peripheral pulses 2+ and equal bilaterally. ABDOMINAL: Soft, nontender, nondistended, no hepatosplenomegaly. Normoactive BS. MUSCULOSKELETAL: Moves all extremities. Strength/ROM intact without gross deformities or TTP. No edema. No calf tenderness. No chest wall tenderness palpation. SKIN: Warm, dry, normal color. No rashes. NEURO: A&O X3. Moves all extremities PSYCHIATRIC: Appropriate mood and affect. Normal interaction. Objective Data Vital Signs Vital Signs: Vital Signs - 24 hr 03/02/22 16:59 03/02/22 17:05 03/02/22 17:05 Temperature 98.2 F Pulse Rate 68 72 Respiratory Rate 13 Blood Pressure 143/80 H Pulse Oximetry 96 95 Oxygen Delivery Room Air Room Air 03/02/22 17:04 03/02/22 17:05 03/02/22 17:15 Temperature Pulse Rate 71 71 Respiratory Rate 15 19 Blood Pressure 143/80 H Pulse Oximetry 97 94 Oxygen Delivery 03/02/22 17:30 03/02/22 17:45 03/02/22 18:00 Temperature Pulse Rate 75 64 65 Respiratory Rate 17 12 14 Blood Pressure Pulse Oximetry 96 95 95 Oxygen Delivery 03/02/22 18:15 03/02/22 19:00 03/02/22 19:10 Temperature Pulse Rate 63 76 70 Respiratory Rate 16 14 16 Blood Pressure 120/68 Pulse Oximetry 94 96 96 Oxygen Delivery 03/02/22 19:15 03/02/22 19:16 03/02/22 19:30 Temperature Pulse Rate 70 74 77 Respiratory Rate 17 20 21 H Blood Pressure 112/69 Pulse Oximetry 97 96 95 Oxygen Delivery 03/02/22 19:45 03/02/22 20:00 03/02/22 20:15 Temperature Pulse Rate 68 71 68 Respiratory Rate 14 16 16 Blood Pressure Pulse Oximetry 96 98 97 Oxygen Delivery 03/02/22 20:21 03/02/22 20:30 03/02/22 20:31 Temperature Pulse Rate 68 67 68 Respiratory Rate 17 17 12 Blood Pressure 119/72 118/67 Pulse Oximetry 96 95 96 Oxygen Delivery 03/02/22 20:45 03/02/22 21:00 03/02/22 21:15 Temperature Pulse Rate 79 75 77 Respiratory Rate 19 12 16 Blood Pressure 119/73 Pulse Oximetry 93 96 94 Oxygen Delivery 03/02/22 21:16 03/02/22 21:30 03/02/22 21:45 Temperature Pulse Rate 76 73 75 Respiratory Rate 18 16 15 Blood Pressure Pulse Oximetry 95 98 100 Oxygen Delivery 03/02/22 22:01 03/02/22 22:15 03/02/22 22:47 Temperature Pulse Rate 74 78 72 Respiratory Rate 16 16 12 Blood Pressure Pulse Oximetry 94 95 95 Oxygen Delivery 03/02/22 22:50 03/02/22 22:59 03/02/22 23:00 Temperature Pulse Rate 74 69 69 Respiratory Rate 14 17 18 Blood Pressure 104/69 Pulse Ox
--- NOTE | 2022-03-03 13:16 | PM.CNCAR ---
Assessment and Plan Assessment and plan (1) Stable angina: Code(s): I20.8 - Other forms of angina pectoris Status: Acute Assessment and Plan: Symptoms concerning for classic exertional angina resolved with nitroglycerin with reported history of known CAD yet without acute ischemic change by EKG and negative serial troponins. Patient is therefore ruled out for acute myocardial infarction but reports intolerable and unstable symptoms. Given her history and risk factors coronary angiography advised for delineation of her coronary anatomy. Patient verbalized understanding and agrees. Patient in fact was emphatic that she undergo heart catheterization repeatedly stating she knows she needs a stent. I informed her while I agree she would benefit from coronary angiogram her need for intervention and/or stent implantation will be dependent upon her appropriate anatomy to which she verbalized understanding and agreed. Recommendation to follow. Continue aggressive medical therapy with aspirin, statin, beta-mir, Imdur. She will follow-up with her resident engineer on outpatient basis post discharge. If no significant obstructive CAD requiring intervention noted consider additional antianginal therapy such as ranolazine 500 mg b.i.d. as tolerated. Risks, benefits, alternatives to coronary angiography explained in detail including but not limited to bleeding, myocardial infarction, stroke, arrhythmia, , and renal insufficiency. Patient agrees to proceed with coronary angiography. (2) CAD (coronary artery disease): Code(s): I25.10 - Atherosclerotic heart disease of [place] coronary artery without angina pectoris Status: Acute Assessment and Plan: As above. Continue aggressive medical management. (3) Hyperlipidemia: Code(s): E78.5 - Hyperlipidemia, unspecified Status: Acute Assessment and Plan: Goal LDL<70. Continue Atorvastatin 40mg qhs. (4) Essential hypertension: Code(s): I10 - Essential (primary) hypertension Status: Acute Assessment and Plan: Controlled. Continue home medical therapy. (5) Tobacco abuse: Code(s): Z72.0 - Tobacco use Status: Acute Assessment and Plan: Immediate and absolute smoking cessation counseling performed. Patient verbalized understanding and states she is actively quitting with the use of nicotine gum. History of Present Illness History of Present Illness Consult date/time: Date of service: 03/03/22 13:16 Requesting physician: Maira Umanzor M.A., MD Consult reason: chest pain Reason For Visit: Chest Pain Narrative: Patient is a pleasant 66-year-old female with a past medical history significant for known CAD, hypertension, hyperlipidemia, tobacco abuse who states she she began to experience escalating exertional chest tightness and pressure radiating to her neck with shortness of breath resolved with rest or 1-2 sublingual nitroglycerin. She states she had a left heart catheterization in 2020 in which she reports a 60% blockage in artery to the back of her heart and is followed by cardiology. She notes over the past 2 weeks the symptoms became limiting with minimal activity to the point where she felt scared to engage in any activity. She would also note these episodes while driving. She states she know she needs to stent and has a problem and is scared to be home alone. She was recently discharged from [facility] after treatment for pneumonia the end of January. She states she has felt well in this regard denies cough, fevers, chills or shortness of breath associated with that illness. End of December she noted some hematuria related to kidney stones which have resolved. She denies bright red blood per rectum or melena. Serial troponins negative EKG without acute ischemic changes if patient continues to experience intermittent chest pain with minimal activity. She denies history of DVT/PE,
--- NOTE | 2022-03-03 14:08 | WPDMODSED ---
Moderate Sedation Note-Pt Data Patient Data Diagnosis: Chest pain Present Complaint: Chest pain Procedure to be performed/Plan: Coronary angiography, C Allergies Allergy/AdvReac Type Severity Reaction Status Date / Time amitriptyline [From Elavil] Allergy Unknown Rash Verified 01/10/21 10:38 oxybutynin Allergy Unknown Hives Verified 01/10/21 10:38 Penicillins Allergy Unknown Rash Verified 01/10/21 10:38 Sulfa (Sulfonamide Allergy Unknown Hives Verified 01/10/21 10:38 Antibiotics) sulfanilamide Allergy Unknown Hives Verified 01/10/21 10:38 tetracycline Allergy Unknown Nausea Verified 01/10/21 10:38 ciprofloxacin AdvReac Intermediate Shakiness Verified 01/10/21 10:38 codeine AdvReac Unknown N/V Verified 01/10/21 10:38 AMITRIPTYLINE HCL Allergy Intermediate PSYCHOSIS Uncoded 01/10/21 10:38 Home Medications Medication Instructions Recorded Confirmed Type aspirin 81 mg tablet,delayed 81 mg PO DAILY 04/05/19 03/02/22 History release (Aspir-) quetiapine 300 mg tablet (Seroquel) 300 mg PO QPM #90 tabs 01/07/20 03/02/22 Rx hydrochlorothiazide 25 mg tablet 25 mg PO DAILY #90 tabs 08/27/20 03/02/22 Rx alprazolam 1 mg tablet (Xanax) 1 mg PO TID 01/10/21 03/02/22 History atorvastatin 40 mg tablet (Lipitor) 40 mg PO HS 01/10/21 03/02/22 History bupropion HCl 150 mg 24 hr tablet, 150 mg PO QAM 01/10/21 03/02/22 History extended release (Wellbutrin XL) cetirizine 10 mg tablet (Zyrtec) 10 mg PO DAILY #30 tabs 01/10/21 03/02/22 Rx hydrocodone 10 mg-acetaminophen 1 tablet PO TID 01/10/21 03/02/22 History 325 mg tablet isosorbide mononitrate 30 mg 60 mg PO DAILY 01/10/21 03/02/22 History tablet,extended release 24 hr nitroglycerin 0.4 mg sublingual 0.4 mg sublingual ONCE 01/10/21 03/02/22 History tablet potassium chloride 10 mEq 10 meq PO DAILY 01/10/21 03/02/22 History tablet,extended release (K-Tab) carvedilol 6.25 mg tablet (Coreg) 12.5 mg PO Q12H 03/02/22 03/02/22 History venlafaxine 150 mg See Rx Instructions .Route .COMPLEX 03/02/22 03/02/22 History capsule,extended release 24 hr (Effexor XR) Current Medications: Active Medications Acetaminophen (Acetaminophen 325 Mg Tablet) 650 mg PO Q4H PRN PRN Reason: Mild Pain (1-3) or Fever Hydrocodone Bitart/Acetaminophen (Hydrocodone/Acetaminophen (*Crx) 10-325 Mg Tablet) 1 tab PO TID [facility] Aspirin (Aspirin 325 Mg Enteric Tablet) 325 mg PO QAM [facility] Last Admin: 03/03/22 08:59 Dose: 325 mg Atorvastatin Calcium (Atorvastatin 40 Mg Tablet) 40 mg PO DAILY [facility] Last Admin: 03/03/22 08:59 Dose: 40 mg Bisacodyl (Bisacodyl 5 Mg Tablet Ec) 5 mg PO DAILY PRN PRN Reason: Constipation Carvedilol (Carvedilol 6.25 Mg Tablet) 6.25 mg PO Q12HR [facility] Last Admin: 03/03/22 08:59 Dose: 6.25 mg Enoxaparin Sodium (Enoxaparin 40 Mg/0.4 Ml Syringe) 40 mg SUB-Q DAILY [facility] Last Admin: 03/03/22 08:59 Dose: 40 mg Famotidine (Famotidine 20 Mg Tablet) 20 mg PO Q12HR [facility] Last Admin: 03/03/22 08:59 Dose: 20 mg Sodium Chloride (Normal Saline Iv) 1,000 mls @ 100 mls/hr IV CONT .Q10H [facility] Last Admin: 03/03/22 06:38 Dose: 100 mls/hr Isosorbide Mononitrate (Isosorbide Mononitrate 30 Mg Tab.Er.24h) 30 mg PO QAM [facility] Last Admin: 03/03/22 08:59 Dose: 30 mg Lorazepam (Lorazepam (*Crx) 1 Mg Tablet) 1 mg PO TID PRN PRN Reason: anxiety Last Admin: 03/03/22 08:59 Dose: 1 mg Nitroglycerin (Nitroglycerin Sl 0.4 Mg Tablet) 0.4 mg SUBLINGUAL PRN PRN PRN Reason: chesp pain Ondansetron HCl (Ondansetron Inj 4 Mg/2 Ml Vial) 4 mg IV PUSH Q6H PRN PRN Reason: Nausea And Vomiting Quetiapine Fumarate (Quetiapine Fumarate 100 Mg Tablet) 300 mg PO HS [facility] Last Admin: 03/03/22 00:50 Dose: 300 mg Sedation/Anesthesia: No previous sedation/anesthesia problems (including family history). PMFSH Past Medical History Medical History Cholecystectomy planned Depression High cholesterol Hx of pancreatitis Kidney di
--- NOTE | 2022-03-03 14:09 | WPDCARDPROC ---
Cardiac Cath Procedure Note Date of procedure:: 03/03/22 Performing physician:: CATHETERIZATION LABORATORY REPORT Procedure Date: 03/03/2022 [employer]: Willow Pina M.D., [facility]? Referring Physician: Dr. Mata ? Anesthesia: Versed and Fentanyl were ordered and given in my presence at 13:19, procedure ended at 14:03. Supervision of nurse monitored moderate sedation with Versed and Fentanyl was provided for 44 minutes. Total of Versed 3mg and Fentanyl 100mcg were administered by Lime Trimmer RN. Pre-op Diagnosis: CAD Post-op Diagnosis: Moderate coronary artery disease of distal RCA Mild disease of left coronary system Left ventricular end-diastolic pressure of 28mmHg Procedure(s): Left heart catheterization with coronary angiography Access Site: Right common femoral artery Brief History and Clinical Indications: Patient is a 66-year-old female with a history of CAD (reports having a 60% blockage when she had her last cardiac cath in 2020), hypertension, hyperlipidemia, tobacco dependence who is referred for cardiac cath for angina. All risks, benefits and alternatives to left heart catheterization with or without percutaneous coronary intervention was discussed at length with the patient. Risk of complications including but not limited to bleeding, infection, arrhythmia, stroke, worsening kidney function, blood loss, groin hematoma, limb loss, emergency coronary artery bypass grafting, and even were discussed with the patient and all questions were answered. The patient understood and wished to proceed. Time out called, patient name, date of , medical record number, allergies, procedure performed, identify [employer], patient and staff member concurred with accurate data, procedure carried on. Findings: LEFT HEART CATHETERIZATION FINDINGS: 1. Left main: The left main coronary artery is widely patent without any significant obstructive disease. 2. Left anterior descending: The proximal LAD is calcified. The proximal LAD has mild diffuse disease. The mid LAD has mild-moderate luminal irregularities. The distal apical LAD is diffusely diseased. The diagonal branches have mild diffuse disease without any significant obstructive angiographic disease. 3. Left circumflex: The proximal left circumflex has a mild 20-30% stenosis. Rest of the left circumflex artery and the main marginal branches have mild luminal irregularities without any significant obstructive angiographic disease. 4. Right coronary artery: The RCA is a diffusely calcified vessel. The RCA is the dominant vessel. The proximal-mid RCA has mild diffuse disease. The distal RCA has a moderate 50-60% stenosis. The RPDA and RPLV have no significant obstructive angiographic disease. 5. Left ventricle: A. End-diastolic pressure 28mmHg. B. LV gram deferred. C. No significant gradient across aortic valve on catheter pullback. Description of Procedure: Informed consent signed and placed in the chart. Patient transferred to lab engineer room. Prepped and draped in usual sterile fashion. 2% lidocaine in right groin area. Micropuncture needle used to access right common femoral artery with Seldinger technique under fluoroscopic guidance. J wire advanced, micropuncture cannula placed. Right iliofemoral angiogram performed, access confirmed and micropuncture cannula exchanged for 5-FR sheath. 5F FL4 diagnostic catheter engaged Left Main Coronary Artery. 5F FR4 diagnostic catheter engaged Right Coronary Artery. Multiple orthogonal angiogram obtained and reviewed 5F FR4 diagnostic catheter crossed aortic valve to obtain LVEDP, LV angiogram deferred. Hemostasis was achieved by manual pressure. ? Assessment: Moderate coronary artery disease of distal RCA Mild disease of left coronary system Left ventricular end-diastolic pressure of 28mmHg Post Operative Condition: Stable No significant blood loss Disposition: Floor Plan: The patient will be mo
--- NOTE | 2022-03-03 14:51 | SUR.PHASEII ---
pt entered phase 2 @1420. R femoral arterial sheath pulled @2790, hemostasis @ 3105. Gauze dressing applied, HOB flat, pt educated about laying flat and bedrest.
[2022-03-03] MEDS: polyethylene glycoL 3350 17 GM POWD.PACK PO (17:41)
[2022-03-03] MEDS: HYDROcodone/acetaminophen (*CRX) 10-325 MG TABLET 1 TAB PO (17:41)
[2022-03-03] MEDS: RANOLAZINE 500 MG TAB.ER.12H PO (20:35)
[2022-03-04] VITALS (7 sets, daily range): BP systolic 122–133; BP diastolic 63–72; PULSE 70–94; RESP 18; TEMP 36.2–36.9; O2SAT 96–98
[2022-03-04] MEDS: ASPIRIN 325 MG ENTERIC TABLET PO (09:07)
[2022-03-04] MEDS: ENOXAPARIN 40 MG/0.4 ML SYRINGE SUB-Q (09:07)
[2022-03-04] MEDS: polyethylene glycoL 3350 17 GM POWD.PACK PO (09:07)
[2022-03-04] MEDS: ATORVASTATIN 40 MG TABLET PO (09:07)
[2022-03-04] MEDS: FAMOTIDINE 20 MG TABLET PO (09:07)
[2022-03-04] MEDS: HYDROcodone/acetaminophen (*CRX) 10-325 MG TABLET 1 TAB PO (09:07)
[2022-03-04] MEDS: RANOLAZINE 500 MG TAB.ER.12H PO (09:07)
[2022-03-04] MEDS: carvediloL 6.25 MG TABLET PO (09:07)
[2022-03-04] MEDS: ISOSORBIDE MONONITRATE 30 MG TAB.ER.24H PO (09:07)
[2022-03-04] MEDS: ALPRAZolam (*CRX) 0.5 MG TABLET 1 MG PO (10:20)
[2022-03-04] MEDS: hydroCHLOROthiazide 25 MG TABLET PO (10:20)
--- NOTE | 2022-03-04 11:13 | PM.DS ---
DS: Admitting Diagnosis Discharge Date March 04, 2022 Admitting Diagnosis chest pain DS: Discharge Diagnosis Discharge Diagnosis (1) Chest pain: Code(s): R07.9 - Chest pain, unspecified Status: Acute Assessment and Plan: Cardiac enzymes negative. Patient is still complaining of chest pain. Cardiology consult Full-dose aspirin Atorvastatin Coreg Imdur P.r.n. nitro (2) Infiltrate of lung present on chest x-ray: Code(s): R91.8 - Other nonspecific abnormal finding of lung field Status: Acute Assessment and Plan: Unlikely patient has pneumonia Patient has history of pancreatic cystic lesion follow-up with PCP as outpatient (3) Essential hypertension: Code(s): I10 - Essential (primary) hypertension Status: Acute Assessment and Plan: Pending home medication reconciliation (4) Hyperlipidemia, unspecified: Qualifiers: Hyperlipidemia type: unspecified Qualified Code(s): E78.5 - Hyperlipidemia, unspecified Code(s): E78.5 - Hyperlipidemia, unspecified Status: Acute Assessment and Plan: Atorvastatin DS: Summary Hospital Course Hospital Course: patient is 66-year-old female with known coronary disease came with chest pain. Had catheterization was seen no significant changes from prior catheterizations approximately 2 years ago. Medications adjusted for angina but otherwise she can be discharged and follow up with her senior underwriter. Time Spent with Patient Time attestation: Total time spent providing and/or coordinating discharge services: Exam Narrative: GENERAL: Well appearing, well-nourished, non-toxic, in no acute distress. HEAD: Normocephalic, atraumatic. NECK: Supple. No adenopathy, no masses. RESPIRATORY: Airway patent, respirations nonlabored. Clear to auscultation bilaterally, no rales, rhonchi, wheezing. CARDIOVASCULAR: Regular rate and rhythm without murmurs, rubs, or gallops. Peripheral pulses 2+ and equal bilaterally. ABDOMINAL: Soft, nontender, nondistended, no hepatosplenomegaly. Normoactive BS. MUSCULOSKELETAL: Moves all extremities. Strength/ROM intact without gross deformities or TTP. No edema. No calf tenderness. No chest wall tenderness palpation. SKIN: Warm, dry, normal color. No rashes. NEURO: A&O X3. Moves all extremities PSYCHIATRIC: Appropriate mood and affect. Normal interaction. Discharge Plan Discharge Attending physician on discharge: Chuy West Consulting providers: Jeremias Reyes Discharging Clinician: Chuy West Patient Disposition: Home, Self-Care Activity: no preference Diet: as tolerated Patient Instructions: Antibiotic Form Stand Alone Forms: General Discharge Information Follow-up/Referrals: Vivek,DO Jimmy [Primary Care Provider] - Discharge Medications: New ranolazine [Ranexa] 500 mg Tablet Extended Release 12 Hr 500 mg PO Q12HR 30 Days Qty: 60 0RF Continued atorvastatin [Lipitor] 40 mg Tablet 40 mg PO HS isosorbide mononitrate 30 mg Tablet Extended Release 24 Hr 60 mg PO DAILY potassium chloride [K-Tab] 10 mEq Tablet Extended Release 10 meq PO DAILY nitroglycerin 0.4 mg Tablet, Sublingual 0.4 mg SUBLINGUAL ONCE bupropion HCl [Wellbutrin XL] 150 mg Tablet Extended Release 24 Hr 150 mg PO QAM alprazolam [Xanax] 1 mg tablet 1 mg PO TID hydrocodone-acetaminophen 10-325 mg tablet 1 tablet PO TID cetirizine [Zyrtec] 10 mg tablet 10 mg PO DAILY Qty: 30 0RF aspirin [Aspir-81] 81 mg tablet,delayed release (DR/EC) 81 mg PO DAILY Hold Instructions: Resume on 06/04/19. carvedilol [Coreg] 6.25 mg tablet 12.5 mg PO Q12H Rx Instructions: must administer with a meal/food venlafaxine [Effexor XR] 150 mg capsule,extended release 24hr See Rx Instructions .ROUTE .COMPLEX Rx Instructions: TAKE 1 CAPSULE BY MOUTH DAILY quetiapine [Seroquel]
--- NOTE | 2022-03-04 11:24 | PM.PNCARD ---
Progress Note: A&P Assessment and Plan (1) Stable angina: Code(s): I20.8 - Other forms of angina pectoris Status: Acute Assessment and Plan: Symptoms have completely resolved after addition of ranolazine 500 mg twice daily. She will continue with current medical therapy in addition to Ranexa and follow up with her technical editor within the next 2 weeks as an outpatient. We discussed potential benefit, limitations and rolled of Ranexa with regards to symptom management. We also discussed that if her symptoms eventually not control his medication discontinuation is an option but for now she is responding favorably recommend continuation with close follow-up with her technical editor as an outpatient. Patient verbalized understanding and agreed with plan of care. She is very happy with the care she has received how much better she feels. She will be discharged home the same cardiovascular medical regimen with the above changes. Smoking cessation counseling once again performed. Stable for discharge home from cardiac perspective to follow up with technical editor within 2 weeks. Disposition per hospitalist service. (2) CAD (coronary artery disease): Code(s): I25.10 - Atherosclerotic heart disease of [place] coronary artery without angina pectoris Status: Acute Assessment and Plan: As above. Continue aggressive medical management. Stable nonobstructive CAD as noted. (3) Hyperlipidemia: Code(s): E78.5 - Hyperlipidemia, unspecified Status: Acute Assessment and Plan: Goal LDL<70. Continue Atorvastatin 40mg qhs. (4) Essential hypertension: Code(s): I10 - Essential (primary) hypertension Status: Acute Assessment and Plan: Controlled. Continue home medical therapy. (5) Tobacco abuse: Code(s): Z72.0 - Tobacco use Status: Acute Assessment and Plan: Immediate and absolute smoking cessation counseling performed. Patient verbalized understanding and states she is actively quitting with the use of nicotine gum. Subjective Date/time seen: Date of service: 03/04/22 11:24 Follow-up for chest pain and CAD Patient underwent left heart catheterization yesterday which revealed stable nonobstructive CAD with 50-60% stenosis in RCA and no further obstructive disease warranting intervention. She was started on Ranexa and states that she feels much better and has had no chest pain or shortness of breath. She feels very well and would like to be discharged home. No issues post catheterization. Denies leg pain or bleeding issues overnight. She is very happy with how she feels. Review of Systems Review of Systems: All systems reviewed & are unremarkable except as noted in HPI and below Constitutional: Constitutional: Reports as per HPI and Reports no additional constitutional complaints Eyes: Eyes: Reports as per HPI and Reports no additional eye complaints ENT: Reports system reviewed and no additional complaints, except as documented and Reports as per HPI Cardiovascular: Cardiovascular: Reports as per HPI and Reports no additional cardiovascular complaints Respiratory: Respiratory: Reports as per HPI and Reports no additional respiratory complaints Gastrointestinal: Gastrointestinal: Reports as per HPI and Reports no additional gastrointestinal complaints Genitourinary: Genitourinary: Reports as per HPI Musculoskeletal: Musculoskeletal: Reports no additional musculoskeletal complaints and Reports as per HPI Integumentary/Breasts: Skin/Breast: Reports system reviewed and no additional complaints, except as docu and Reports as per HPI Neurologic: Reports system reviewed and no additional complaints, except as documented and Reports as per HPI Psychiatric: Psychiatric: Reports no additional psychiatric complaints and Reports as per HPI Endocrine: Endocrine: Reports no additional endocrine complaints and Reports as per HPI Hematologic/Lymphatic: Hematol
[2022-03-04 11:33] LABS: Basophils Absolute Auto 0.1 K/mm3 (0.0-0.1); Basophils Percent Auto 0.7 % (0.2-1.2); Eosinophils Absolute Auto 0.8 K/mm3 (0-0.3); Eosinophils Percent Auto 11.6 % (0-4.4); Hematocrit 37.9 % (37.0-47.0); Hemoglobin 13.2 g/dL (12.0-15.0); Immature Granulocyte Absolute 0.02 K/mm3 (0.00-0.031); Immature Granulocyte Percent A 0.3 % (0-0.5); Lymphocytes Absolute Auto 2.27 K/mm3 (0.9-3.2); Mean Corpuscular HGB Conc 34.8 g/dl (32-36); Mean Corpuscular Hemoglobin 31.3 pg (26-34); Mean Corpuscular Volume 89.8 fl (80-100); Mean Platelet Volume 8.6 fl (7.4-10.4); Monocytes Absolute Auto 0.6 K/mm3 (0.1-0.6); Monocytes Percent Auto 8.9 % (2.6-8.5); Neutrophils Absolute Auto 3.1 K/mm3 (1.3-6.7); Neutrophils Percent Auto 45.5 % (45.5-73.1); Platelet Count Result 233 k/mm3 (150-375); Red Blood Count 4.22 M/mm3 (4.2-5.4); Red Cell Distribution Width 13.2 % (11.5-14.5); White Blood Count 6.9 K/mm3 (4.5-10.0)
[2022-03-04 11:44] LABS: Alanine Aminotransferase 17 U/L (6-35); Albumin Level 4.3 g/dL (3.5-5.1); Alkaline Phosphatase 62 U/L (38-126); Anion Gap 12 mmol/L (8-16); Aspartate Amino Transferase 21 U/L (14-36); Bilirubin,Total 0.4 mg/dL (0.2-1.3); Blood Urea Nitrogen 9 mg/dL (7-17); Calcium 8.8 mg/dL (8.4-10.2); Carbon Dioxide 25 mmol/L (22-30); Chloride 105 mmol/L (98-107); Estimated CRCL calculation 96 ml/min; Estimated Glomerular Filt Rate > 60; Glucose 118 mg/dL (65-110); Potassium 3.6 mmol/L (3.4-5.0); Sodium 142 mmol/L (137-145)
== END 2022-03-04 12:36 | disposition home or self-care (01) ==
LOC: ANHED 17:43 → ANHIMU 23:05
PROVIDERS: Emergency Medicine; Internal Medicine; Admitting Provider Internal Medicine; Emergency Provider Emergency Medicine; PCP Student in an Organized Health Care Education/Training Program; Visit Provider Chiropractor
PROC: 4A023N7 Measurement of Cardiac Sampling and Pressure, Left Heart, Percutaneous Approach (ICD-10-PCS; CPT 93452; principal; 2022-03-03 12:50)
DX: I25.118 Atherosclerotic heart disease of native coronary artery with other forms of angina pectoris (principal); I25.84 Coronary atherosclerosis due to calcified coronary lesion; R91.8 Other nonspecific abnormal finding of lung field; I10 Essential (primary) hypertension; E78.5 Hyperlipidemia, unspecified; F32.A Depression, unspecified; Z20.822 Contact with and (suspected) exposure to COVID-19; I44.0 Atrioventricular block, first degree; F17.210 Nicotine dependence, cigarettes, uncomplicated; F12.90 Cannabis use, unspecified, uncomplicated; Z79.82 Long term (current) use of aspirin; Z79.891 Long term (current) use of opiate analgesic; Z79.899 Other long term (current) drug therapy; Z87.01 Personal history of pneumonia (recurrent)
CPT/HCPCS: 36415; 71046; 80053; 80307; 83690; 83735; 84145; 84484; 85025; 85610; 85730; 87636; 93005; 93458; 96360; 96361; 96372; 99285; A9270; C1887; C1894; G0378; J1644; J1650; J2250; J3010; J7030; J7040

== ENCOUNTER 2022-11-16 09:27 | Outpatient (CLI) | payer MEDICARE, MEDICAID, SELFPAY ==
[2022-11-16 10:07] LABS: Anion Gap 9 mmol/L (8-16); Blood Urea Nitrogen 11 mg/dL (7-17); Calcium 9.3 mg/dL (8.4-10.2); Carbon Dioxide 29 mmol/L (22-30); Chloride 100 mmol/L (98-107); Estimated Glomerular Filt Rate > 60; Glucose 120 mg/dL (65-110); Potassium 3.8 mmol/L (3.4-5.0); Sodium 138 mmol/L (137-145)
== END 2022-11-16 09:28 | disposition home or self-care (01) ==
PROVIDERS: Anesthesiology; PCP Student in an Organized Health Care Education/Training Program; Visit Provider Surgery
DX: Z79.899 Other long term (current) drug therapy (principal); Z01.818 Encounter for other preprocedural examination
CPT/HCPCS: 36415; 80048

== ENCOUNTER 2022-11-22 00:13 | Day surgery (SDC) | payer MEDICARE, MEDICAID, SELFPAY ==
[2022-11-12 09:42] VITALS: BMI 26.0
--- NOTE | 2022-11-12 09:53 | PC.NURSE ---
Report to the Outpatient Waiting Room, entrance under the green pavilion located off [facility], at time 11:30 on date 11/22/22. Planned Procedure Time: 1:30. Time changes happen often and if your time is changed the preop area will call you the afternoon before. - You and your visitor will be asked to self-screen and do not enter if you have any COVID symptoms. - A mask is optional within the hospital at this time. Patients may have clear liquids (water, carbonated beverages, clear teas, apple juice) until 3 hours prior to surgery with a maximum of 20 ounces. - No food from midnight until time of surgery Take the following medications with a SIP of water the morning of surgery: XANAX IF NEEDED, CARVEDILOL, RANOLAZINE, VENLAFAXINE, HYDROCODONE IF NEEDED DO NOT STOP ANY OF YOUR OTHER PRESCRIPTION MEDICATIONS PRIOR TO SURGERY ?EXCEPT THE FOLLOWING Medications to discontinue per physician: VITAMINS/SUPPLEMENTS Date to take last dose: 11/18/22 Please no make-up, nail danish, hairspray, perfume, deodorant, or body powder the day of surgery. No jewelry (including any body piercings) or valuables the day of surgery, leave them at home. Please take a shower or bath the night before, or the morning of, surgery with an antibacterial soap. Wear comfortable, loose fitting clothing. - Jewelry must be removed prior to entering the operating room. Rings and piercings that are not removed may be cut off. - The hospital will not accept responsibility for valuables. - Please leave all valuables, including medications, at home the day of surgery. If you are going home after surgery, a licensed skip load driver must drive you home. - NO public transportation without another adult if you receive anesthesia. - We recommend that an adult stay with you for 24 hours following discharge. - We also recommend that you do not drive, make important decision, drink alcoholic beverages, or take any drugs that were not prescribed by your health care provider for at least 24 hours after your discharge time. Follow any additional instructions given to you from your surgeon. If you or anyone in your household have experienced Covid symptoms in the past week, please notify your surgeon or the nurse liaison at the phone number below for possible testing. Telephone instructions given to PT - MAJOR VARGAS and asked if any additional questions and then verbalized understanding. Patient advised to call surgeon office or pre surgery nurse liaison [phone] if any additional questions.
[2022-11-22] VITALS (9 sets, daily range): BP systolic 113–135; BP diastolic 52–76; PULSE 67–79; RESP 14–18; TEMP 36.4–36.6; O2SAT 91–99
--- NOTE | 2022-11-22 12:22 | WPDHPUPDATE1 ---
History and Physical Update Update Date/Time: 11/22/22 12:22 History and Physical has been reviewed, including an updated exam of the patient. There are NO changes in the patient's condition. Risks, benefits, and alternatives have been discussed and questions answered. Patient agrees to proceed with procedure.
--- NOTE | 2022-11-22 12:32 | P.PNAN_ITS ---
Anes - Eval Final PreProcedure Day of Procedure 11/22/22 12:32 Heart: regular rate and rhythm Lungs: clear to auscultation and normal air movement Airway: Mallampati scale Neurological: alert and oriented Last oral intake: >/= 8 hours ASA classification: III Anesthetic plan: proceed Anesthesia type and monitoring: general and standard monitoring Results Review: All pre-operative results and documents have been reviewed as part of the pre- operative evaluation. Informed Consent: The patient's anesthetic plan and its attendant risks and benefits were discussed with the patient/family/POA. Questions were solicited and answers provided to the satisfaction of the patient/family/POA.
--- NOTE | 2022-11-22 12:38 | WPDANESEPPF ---
Anes - Initial Pre Proc Eval Procedure: Operation Date: 11/22/22 13:30 Proposed Procedures p Excision of Perianal Cyst - Dallin Castellanos DO Date/Time: 11/22/22 12:38 Surgeon: Dallin Castellanos DO Pre Op Diagnosis: 1cm Perianal Cyst Patient Data Age: 66 Gender: F Height: 1.65 m Weight: 69.2 kg Last Vital Signs Temp 36.4 C L 11/22/22 11:39 Pulse 73 11/22/22 11:39 Resp 18 11/22/22 11:39 BP 133/68 11/22/22 11:39 Pulse Ox 97 11/22/22 11:39 O2 Del Method Room Air 11/22/22 11:39 Allergies Allergy/AdvReac Type Severity Reaction Status Date / Time amitriptyline [From Elavil] Allergy Unknown Rash Verified 11/12/22 09:37 Penicillins Allergy Unknown Rash Verified 11/12/22 09:37 Sulfa (Sulfonamide Allergy Unknown Hives Verified 11/12/22 09:37 Antibiotics) sulfanilamide Allergy Unknown Hives Verified 11/12/22 09:37 tetracycline Allergy Unknown Nausea Verified 11/12/22 09:37 ciprofloxacin AdvReac Intermediate Shakiness Verified 11/12/22 09:37 codeine AdvReac Unknown N/V Verified 11/12/22 09:37 doxycycline AdvReac Nausea and Verified 11/12/22 10:02 Vomiting Home Medications Medication Instructions Recorded Confirmed Type aspirin 81 mg tablet,delayed 81 mg PO DAILY 04/05/19 11/12/22 History release (Aspir-) quetiapine 300 mg tablet (Seroquel) 300 mg PO QPM #90 tabs 01/07/20 11/12/22 Rx hydrochlorothiazide 25 mg tablet 25 mg PO DAILY #90 tabs 08/27/20 11/12/22 Rx alprazolam 1 mg tablet (Xanax) 1 mg PO TID 01/10/21 11/12/22 History atorvastatin 40 mg tablet (Lipitor) 40 mg PO HS 01/10/21 11/12/22 History bupropion HCl 150 mg 24 hr tablet, 150 mg PO HS 01/10/21 11/12/22 History extended release (Wellbutrin XL) hydrocodone 10 mg-acetaminophen 1 tablet PO TID 01/10/21 11/12/22 History 325 mg tablet isosorbide mononitrate 30 mg 60 mg PO QACLUNCH 01/10/21 11/12/22 History tablet,extended release 24 hr nitroglycerin 0.4 mg sublingual 0.4 mg sublingual ONCE 01/10/21 11/12/22 History tablet potassium chloride 10 mEq 10 meq PO DAILY 01/10/21 11/12/22 History tablet,extended release (K-Tab) carvedilol 6.25 mg tablet (Coreg) 12.5 mg PO Q12H 03/02/22 11/12/22 History venlafaxine 150 mg See Rx Instructions .Route .COMPLEX 03/02/22 11/12/22 History capsule,extended release 24 hr (Effexor XR) ranolazine 500 mg tablet,extended 500 mg PO Q12HR 30 days #60 tabs 03/04/22 11/12/22 Rx release,12 hr (Ranexa) cholecalciferol (vitamin D3) 125 125 mcg PO DAILY 11/12/22 11/12/22 History mcg (5,000 unit) tablet (Vitamin D3) oxybutynin chloride 10 mg 10 mg PO HS 11/12/22 11/12/22 History tablet,extended release 24 hr Patient hx anesthesia problems: none Family hx anesthesia problems: none Results Review: All pre-operative results and documents have been reviewed as part of the pre-operative evaluation. [facility] Past Medical History Medical History Anxiety Cholecystectomy planned Depression Emphysema lung High cholesterol Hx of pancreatitis Kidney disease Kidney stones Pneumonia Postmenopausal Screening for breast cancer Screening for colon cancer Urinary frequency Vision abnormalities Weight gain Surgical History Surgical History H/O colonoscopy History of cholecystectomy History of esophagogastroduodenoscopy (EGD) History of laryngoscopy History of partial hysterectomy Hx of tonsillectomy Family History Family History Sibling Patient's brother is in good health Dementia Mother Family history of coronary artery disease Acute myocardial infarction Father Patient's father is Acute myocardial infarction Cerebrovascular accident Unknown Heart disease Cerebrovascular accident Other Family history of mental disorder Social History Soci
[2022-11-22] MEDS: ceFAZolin 2 GM/D5W 50 ML 2 GM/50 ML BAG IVPB (12:40)
--- NOTE | 2022-11-22 13:21 | W.PM.PROC2 ---
Procedure Note - Detailed Date of Procedure 11/22/22 Pre-op Diagnosis Perianal Cyst Post-op Diagnosis Same Procedure Performed Excision of 5 cm perianal cyst Surgeon Dallin Castellanos, DO Anesthesia General and Local (Exparel) Indications This is a 66-year-old woman who presented with a painful lump just inferior to her coccyx. This had been bothering her for the past 3 or 4 months. She states that the swelling changes over time. She denies any notable drainage or bleeding. She was found to have an area of swelling just inferior to the coccyx in the perianal region. This did not appear to be tracking towards the anus. Discussions were made with the patient about treatment options and decision was made to proceed with excision of perianal cyst. Findings Excision of perianal cyst was performed. The patient had an area of induration and swelling in the perianal region between the coccyx and the anus. This area spanned a length of about 5 cm by 2 cm. A 5 cm elliptical incision was made to encompass the entire area. No deep abnormalities were noted. The wound was then approximated with 4-0 nylon vertical mattress interrupted sutures. Description of Procedure Procedure as well as risks, benefits, and alternatives were discussed with the patient. Written consent was obtained and placed in chart prior to procedure. Patient was brought back to surgical suite. She was placed supine in her hospital stretcher. Time-out was done to confirm patient and procedure. She was then intubated by the anesthesia department. She was then repositioned prone mikael-knife position. Her perianal region was prepped and draped in sterile fashion using Betadine prep. Exparel was infiltrated locally around the perianal region. In the perianal region between the coccyx and the anus a 5 cm elliptical incision was made using a 15 blade scalpel. Electrocautery was then used for hemostasis and the skin and subcutaneous tissue were excised completely using a 15 blade scalpel. The wound bed was then inspected. Hemostasis appeared adequate. The wound edges were then reapproximated using 4-0 nylon vertical mattress interrupted sutures. Xeroform gauze, 4x4s, and mesh underwear were then applied. The patient was then awakened from anesthesia, extubated, and transferred to recovery. Estimated Blood Loss 5 Pathology Yes (Perianal cyst) Complications No immediate complications Condition Stable Disposition Same day [facility] Billing Surgery - Charge Forward: Surgery Billing
[2022-11-22] MEDS: LACTATED RINGERS 1,000 ML 30 ML IV CONT (13:26)
[2022-11-22] MEDS: fentaNYL CITRATE INJ (*CRX) 100 MCG/2 ML VIAL 25 MCG IV PUSH ×4 (13:50→14:10)
== END 2022-11-22 15:08 | disposition home or self-care (01) ==
PROVIDERS: PCP Student in an Organized Health Care Education/Training Program; Visit Provider Surgery
PROC: (CPT 46922; principal; 2022-11-22 13:30)
DX: K62.89 Other specified diseases of anus and rectum (principal); I25.10 Atherosclerotic heart disease of native coronary artery without angina pectoris; F41.9 Anxiety disorder, unspecified; F32.A Depression, unspecified; J43.9 Emphysema, unspecified; E78.00 Pure hypercholesterolemia, unspecified; R35.0 Frequency of micturition; F12.90 Cannabis use, unspecified, uncomplicated; Z87.19 Personal history of other diseases of the digestive system; Z79.82 Long term (current) use of aspirin; Z79.891 Long term (current) use of opiate analgesic; F17.210 Nicotine dependence, cigarettes, uncomplicated
CPT/HCPCS: 46922; 36415; 80048; 88305; A9270; C9290; J0330; J0690; J1100; J2250; J2405; J2704; J3010; J7120

== ENCOUNTER 2023-04-25 12:42 | Outpatient (CLI) | payer MEDICARE, MEDICAID, SELFPAY ==
--- NOTE | ~2023-04-25 | CT_ITS ---
EXAMINATION:CT lung screening DATE: 04/25/2023 13:10 INDICATION: Nicotine dependence. Current smoker with 50 pack year history. TECHNIQUE: Computed tomography (CT) of the chest was performed without intravenous contrast. Automate d exposure control and iterative reconstruction technique were employed. The dose-length product (DLP ) was 85.94 mGy-cm. COMPARISON: Chest CT 12/31/2021 FINDINGS: There is mild emphysema. There is peripheral septal thickening in the inferior lungs. There is a stable 4 mm nodule in right upper lobe. There is mild atelectasis bilaterally. No pleural effus ion. The heart size is normal. There are coronary artery calcifications. No pericardial effusion. The re are changes of cholecystectomy. There are stones in the kidneys measuring up to 3 mm on the right. There is moderate thoracic spondylosis. IMPRESSION: 1. Lung-RADS category 2: Benign appearance or behavior. Continue annual screening with noncontrast lo w-dose chest CT in 12 months. Reviewed, dictated and finalized at location A. TER CIVIL IMPRESSION: 1. Lung-RADS category 2: Benign appearance or behavior. Continue annual screeni ng with noncontrast low-dose chest CT in 12 months.
== END 2023-04-25 12:43 | disposition home or self-care (01) ==
PROVIDERS: PCP Student in an Organized Health Care Education/Training Program; Visit Provider Student in an Organized Health Care Education/Training Program
DX: Z12.2 Encounter for screening for malignant neoplasm of respiratory organs (principal); F17.210 Nicotine dependence, cigarettes, uncomplicated
CPT/HCPCS: 71271

== ENCOUNTER 2023-05-05 12:29 | Outpatient (CLI) | payer MEDICARE, MEDICAID, SELFPAY ==
--- NOTE | ~2023-05-05 | CT_ITS ---
EXAMINATION: CT pelvis wo con DATE: 05/05/2023 12:44 INDICATION: Other specified diseases of anus and rectum. TECHNIQUE: Computed tomography (CT) of the pelvis was performed without intravenous contrast. Automat ed exposure control and iterative reconstruction technique were employed. The dose-length product was 277.26 mGy-cm. COMPARISON: CT abdomen and pelvis 02/01/2022 FINDINGS: There is diverticulosis of the colon without evidence of diverticulitis. There are no dilat ed loops of bowel. There are no pathologically enlarged lymph nodes. There is no free intraperitoneal fluid. There are widespread arterial calcifications. Pelvic floor dysfunction is noted. There is sev ere lumbar spondylosis. IMPRESSION: 1. Pelvic floor dysfunction. Reviewed, dictated and finalized at location E. LE STROKE PREFORMER
== END 2023-05-05 12:30 | disposition home or self-care (01) ==
LOC: ANHIMG 12:32
PROVIDERS: PCP Student in an Organized Health Care Education/Training Program; Visit Provider Surgery
DX: M99.05 Segmental and somatic dysfunction of pelvic region (principal); K62.89 Other specified diseases of anus and rectum
CPT/HCPCS: 72192

== ENCOUNTER 2023-05-31 12:52 | Outpatient (CLI) | payer MEDICARE, MEDICAID, SELFPAY ==
--- NOTE | ~2023-05-31 | CT_ITS ---
. EXAMINATION: CT abdomen pelvis wo con DATE: 05/31/2023 13:25 INDICATION: Flank pain, low abdominal pain for 2 days TECHNIQUE: Computed tomography (CT) of the abdomen and pelvis was performed without intravenous contr ast. Automated exposure control and iterative reconstruction technique were employed. Exam dose: 380 .60 mGy-cm total exam DLP. COMPARISON: 05/05/2023 CT pelvis 02/01/2022 CT abdomen pelvis FINDINGS: Bilateral peripheral interstitial changes suggesting mild usual interstitial pneumonia type interstitial fibrosis. No consolidation at the lung bases. Normal heart size. Coronary artery calcifications. No pericardial or pleural effusion. Status post cholecystectomy. No hepatic, pancreatic, splenic, and adrenal or renal space-occupying ma ss lesion is evident on this limited noncontrast examination. Approximately 2.7 mm nonobstructing upper pole right renal calculus. Approximately 2.3 mm nonobstructing lower pole right renal calculus. Pinpoint probable upper pole nonobstructing left renal calculus. Prominent bilateral renal artery calcifications. There is extensive calcification of the abdominal ao rta and at the origins of the celiac and superior mesenteric arteries in addition to prominent bilate ral iliac and femoral artery calcifications. No abdominal aortic aneurysm. No intraperitoneal or retroperitoneal or pelvic mass lesion or adenopathy or ascites is noted. There is an approximately 8.6 cm wide complicated fluid collection with air-fluid levels in the depen dent lower pelvis, sandwiched between sigmoid colon loops, possibly diverticular abscess. There are m ultiple colonic diverticula. No bowel obstruction or free intraperitoneal air is noted. There is liquid stool in the colon, with a ir-fluid levels. Repeat CT pelvis examination with dilute rectal contrast material may be of assistance in further jefry luation. The urinary bladder is unremarkable. Status post hysterectomy. Small fat-containing umbilical hernia. Degenerative changes of the thoracic and lumbar spine. This includes severe degenerative disease at L 5-S1, grade 1 anterolisthesis at L4-5 due to degenerative change at the apophyseal joints. IMPRESSION: Large apparently, complicated fluid collection with air-fluid levels in the dependent lo wer pelvis, sandwiched between sigmoid colon loops, possibly diverticular abscess; clinical correlati on is advised. Repeat CT pelvis examination with dilute rectal contrast material may be of assistance Status post cholecystectomy Status post hysterectomy Mild bilateral nonobstructive nephrolithiasis Reviewed, dictated and finalized at Location [facility]. Reviewed, dictated and finalized at location L. ET GRINDER IMPRESSION: Large apparently, complicated fluid collection with air-fluid leve ls in the dependent lower pelvis, sandwiched between sigmoid colon loops, possi gillian diverticular abscess; clinical correlation is advised. Repeat CT pelvis exa mination with dilute rectal contrast material may be of assistance Status post cholecystectomy Status post hysterectomy Mild bilateral nonobstructive nephrolithiasis
== END 2023-05-31 12:53 | disposition home or self-care (01) ==
PROVIDERS: PCP Student in an Organized Health Care Education/Training Program; Visit Provider Registered Nurse
DX: R10.30 Lower abdominal pain, unspecified (principal); R82.998 Other abnormal findings in urine; Z90.49 Acquired absence of other specified parts of digestive tract; Z90.79 Acquired absence of other genital organ(s); N20.0 Calculus of kidney
CPT/HCPCS: 74176

== ENCOUNTER 2023-06-06 09:33 | Emergency (ER) | payer MEDICARE, MEDICAID, SELFPAY | END 2023-06-06 10:11 | disposition left against medical advice (07) | LOC: ANHED 10:07 | PROVIDERS: PCP Student in an Organized Health Care Education/Training Program | DX: Z53.21 Procedure and treatment not carried out due to patient leaving prior to being seen by health care provider (principal) | CPT/HCPCS: 99199 ==

== ENCOUNTER 2024-05-16 10:11 | Emergency (ER) | payer MEDICARE, MEDICAID, SELFPAY ==
--- NOTE | ~2024-05-16 | XR_ITS ---
EXAMINATION: XR chest 1V portable DATE: 05/16/2024 12:43 INDICATION: Feeling unwell. TECHNIQUE: A single frontal view of the chest was obtained. COMPARISON: Chest 2 views 03/02/2022, chest CT 04/25/2023 FINDINGS: There are airspace opacities in the lower lung zones. No pleural effusion or pneumothorax. The heart size is normal. IMPRESSION: 1. Airspace opacities in the lower lung zones, consistent with atelectasis versus pneumonia. Reviewed, dictated and finalized at location A. NEERING DESIGNER IMPRESSION: 1. Airspace opacities in the lower lung zones, consistent with atelectasis vers us pneumonia.
--- NOTE | ~2024-05-16 | CT_ITS ---
EXAMINATION: CT abdomen pelvis w con DATE: 05/16/2024 14:50 INDICATION: Painless hematuria TECHNIQUE: Computed tomography (CT) of the abdomen and pelvis was performed with 100 mL Omnipaque-350 intravenous contrast. Automated exposure control and iterative reconstruction technique were employe d. The dose-length product was 311.31 mGy-cm. COMPARISON: 05/31/2023 and 02/01/2022 FINDINGS: Mild emphysema. There is groundglass opacity in the dependent lower lobes and favor atelectasis over pneumonia or pulmonary edema. Heart size normal. Atherosclerotic coronary artery calcium. No pericard ial or pleural effusion. INTRA-axial hepatic biliary ductal dilation which is within normal limits po st cholecystectomy with surgical clips the gallbladder fossa. Spleen, pancreas and bilateral adrenal glands are normal. Calcifications at the bilateral renal ester likely combination of atherosclerotic c alcifications and less than 3 mm nonobstructing nephrolithiasis. No ureteral stones or hydronephrosis . Small focus of cortical scarring at the site of a prior cyst at the upper pole of the right kidney. There is fluid throughout the colon consistent with nonspecific diarrhea. No abnormal bowel wall thi ckening or obstruction. Bladder is normal. The uterus is not identified and has likely been surgicall y resected. There is calcified atherosclerosis of the aorta and many of the other arteries. No free intraperitoneal gas or fluid. No pathologically enlarged abdominal or pelvic lymphadenopathy. Moderat e to severe lumbar and lower thoracic spondylosis. IMPRESSION: 1. Bilateral nonobstructing nephrolithiasis. 2. Fluid throughout the colon consistent with nonspecific diarrhea. Reviewed, dictated and finalized at location B. 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
[2024-05-16 10:19] VITALS: BP 156/67; PULSE 65; RESP 20; TEMP 37; O2SAT 96
--- OUTSIDE RECORDS SUMMARY | 2024-05-16 11:02 | XMS_ITS | Data Portability ---
Author Organization [facility] OFFICE Address [address] [place] [address] Care Team Providers Care Cardiac Catheterization Technician Name Role Phone JESUS MACEDO Primary Care Provider [phone] JESUS MACEDO Referring Provider Assessment No assessment recorded. Plan of Treatment Reminders Order Date Submit Date Provider Last Modified By Organization Details Last Modified Time Details Appointments None record ed. Lab None record ed. Referral None record ed. Procedures None record ed. Surgeries None record ed. Imaging None record ed. Medication Orders None record ed. Patient TargetsNo targets recorded. Patient Instructions Encounter Date Encounter Id Patient Instructions Last Modified By Organization Details Last Modified Time 04/30/2020 [id number] Exercise advised Low cholesterol diet advised Low sodium diet advised [email or web address] Not available 04/30/2020 16:38:42 Scribed by Kamila Michele [facility] [email or web address] Not available 04/30/2020 16:38:44 Reason for Referral None Reported. Results Created Date Observation Date Name Description Value Unit Range Abnormal Flag Note LastModifiedBy Organization Detail LastModifiedTime 05/02/1904/30/2020 jonathan berrios am No observ ation record ed. hmesto Not Available 2020 10:00:04 05/02/19 21 04/01/2020 elect rocar diogr am No observ ation record ed. hmesto Not Available 2020 12:00:44 05/02/19 21 04/01/2020 XR, chest No observ ation record ed. hmesto Not Available 2020 10:01:32 Result Notes Documentation Provider Name and Address Organization Details Recorded Time Xr, Chest : XR, Chest 04/01/20:III-defined small bibasiller atelectasis or infection,clinical correlation. Efra Whitman [facility] 05/03/2020 10:01:32 D-dimer Feu, Qn, Ia, Blood : D-dimer 04/01/20:0.37 Efra Whitman [facility] 05/03/2020 09:54:26 Cbc W/ Diff : 04/01/20:WBC 7.6,RBC 4.68,HGB 14.8,HCT 41.8,PLT 251. Efra Whitman [facility] 05/03/2020 09:50:44 Cmp, Serum Or Plasma : 04/02/20:Na 139,K 3.4,Cl 102,CO2 32,GLU 99,BUN 11,Cr 0.6,Mg 2.1 [facility] 05/03/2020 09:54:26 Lipid Panel, Blood : 04/02/20: TC 167,TG 220,LDL 107,HDL 30. Efra Whitman [facility] 05/03/2020 09:54:26 Problems Name Problem SNOMED Code Status Onset Date Resolution Date Notes Provider Name and Address Organization Details Recorded Time Essential hypertension 33621939 Active 2020 [facility] 15:22:30 Cerebrovascula r accident 862975693 Active 2020 [facility] 15:22:39 Hypercholester olemia 44879008 Active 2020 [facility] 15:22:56 Depressive disorder 99327330 Active 2020 [facility] 15:23:04 Problem Notes None recorded. Procedures Surgical History Date Name Laterality Status Provider Name and Address Organization Details Recorded Time Hysterectomy completed [facility] 04/30/2020 15:24:35 Cholecystectomy completed [facility] 04/30/2020 15:24:43 Imaging Results Imaging Date Name Status LastModified by Organization Details LastModified Time 04/30/2020 electrocardiogram completed Informa tion not available 05/03/2020 10:00:04 04/01/2020 electrocardiogram completed Informa tion not available 05/03/2020 12:00:44 04/01/2020 XR, chest completed Information no t available 05/03/2020 10:01:32 Procedure Notes None recorded. Medical Equipment None Reported. Allergies Allergen ID Allergen Name Allergen Category Reaction Reaction Severity Criticality Documentation Date Start Date Code Code System Note Provider Name and Address Organization Details Recorded Time 11004 sulfobrom ophthalei n sodium medicatio n Not available Not available Not available 04/30/202001231 0 RxNorm Renae [facility], [place] - [facility] 15:21:51 93043 tetracycl ine medicatio n Not available Not available Not available 04/30/2020 93109 [facility] [place] [facility] 15:22:03 Medications Name Sig Start Date Stop Date Status Note LastModified by Organization Details LastModified Time quetiapine 300 mg tablet TK 1 T PO QPM active Not Available Not Available No t Available oxybutynin chloride ER 10 mg tablet,ext ended release 24 hr TK 1 T PO D active Not Available Not Available No t Available alprazolam 1 mg tablet TAKE 1 TABLE active Not Available Not Available No t Available valacyclov ir 1 gram tablet TK 2 TS PO BID PRF RASH active Not Available Not Available No t Available hydrocodon e 5 mg-acetami nophen 325 mg tablet TK 1 TO 2 TS PO Q 6 H PRN 04/30 completed Not Available Not Available Not Available venlafaxin e ER 150 mg capsule,ex tended release 24 hr TK 1 C PO D active 1 tablet once a day Not Available Not Available Not Available ciprofloxa micheline 500 mg tablet TK 1 T PO Q 12 H 04/30 completed Not Available Not Available Not Available hydrocodon e 10 mg-acetami nophen 325 mg tablet TAKE 1 TABLET BY MOUTH THREE TIMES DAILY NEEDED FOR PAIN RATED 4 TO 6 ON PAIN SCALE active Not Available Not Available No t Available carvedilol 3.125 mg tablet TK 1 T PO Q 12 H active Not Available Not Available No t Available promethazi ne 25 mg tablet TK 1 T PO TID PRF NV 04/30 completed pt is not taking Not Available Not Available Not Available hydrochlor othiazide 25 mg tablet TK 1 T PO D active Not Available Not Available No t Available lovastatin 20 mg tablet TK 1 T PO D active Not Available Not Available No t Available Ventolin HFA 90 mcg/actuat ion aerosol inhaler INL 2 INHALATI ON PO Q 8 H PRF SOB OR WHZ active Not Available Not Available No t Available aspirin 81 mg once a day active Not Available Not Available No t Available Vitamin D3 1.000 iu once a day active Not Available Not Available No t Available aripiprazo le 2 mg tablet TK 1 T PO D 04/30 completed pt is not taking Not Available Not Available Not Available Prevnar 13 (PF) 0.5 mL intramuscu lar syringe ADM 0.5 ML IM 1 TIME 04/30 completed Not Available Not Available Not Available Fluzone Quad 4615-4394 (PF) 60 mcg (15 mcg x 4)/0.5 mL IM syringe ADM 0.5ML IM UTD 04/30 completed Not Available Not Available Not Available Vitals Date Recorded Body height Body mass index (BMI) Body weight Heart rate Respiratory rate Oxygen saturation Oxygen saturation in Arterial blood by Pulse oximetry Body temperature Systolic blood pressure Diastolic blood pressure Provider Name and Address Organization Details Last Updated DateTime 165.1 cm 28.3 kg/m2 70263.7 g 84 /min 18 /min 94 % 94 % 97.2 [degF] 170 mm[Hg] 100 mm[Hg] Renae Pineda [facility] 15:31:15 Social History Question Answer Notes LastModified by Organizat ion Details LastModified Time Tobacco Smoking Status Current Every Day Smoker Renae wright [facility] 04/30/2020 15:23:42 Do You Have An Advance Directive? No [facility] Information not available 04/30/2020 What Is Your Level Of Alcohol Consumption? Occasional [facility] Information not available 04/30/2020 What Is Your Level Of Caffeine Consumption? None [facility] Information not available 04/30/2020 How Much Tobacco Do You Chew? None [facility] Information not available 04/30/2020 What Type Of Diet Are You Following? REGULAR Information not available 04/30/2020 Which Illicit Or Recreational Drugs Have You Used? No Information not available 04/30/2020 Live Alone Or With Others? With Others Information not available 04/30/2020 Marital Status Single Informatio n not available 04/30/2020 How Many Children Do You Have? 1 Information not available 04/30/2020 How Much Tobacco Do You Smoke? 0.5 PPD Information not available 04/30/2020 General Stress Level Low Information not available 04/30/2020 Sex: Unknown Functional Status Question Answer Note LastModified by Organization D etails LastModified Time What is your exercise level? Moderate Information not available 04/30/2020 Mental Status None recorded. Family History Relationship Description Onset Age of this Age Resolved Age Notes LastModified by Organization Details LastModified Time Father No current problems or disability Stroke [facility] Not available 04/18 15:23:31 Mother No current problems or disability Heart Diseas e Not available 04/30/2020 15:23:38 Medical History Condition Response Hyperlipidemia Y Hypertension Y High Cholesterol Y Gynecological HistoryNo gynecological history recorded. Obstetrics History GPAL:G 0 P 0 0 0 0 Past Encounters Encounter ID Performer Location Encounter Start Date Encounter Closed Date Diagnosis/Indication Diagnosis SNOMED-CT Code Diagnosis ICD10 Code Diagnosis Note [id number] MD Izzy Naqvi Office [address] [place] [address] 04/30/2020 14:29:44 04/30/2020 15:51:37 Atypical chest pain 793399886 R07.89 Treadmill Myoview Stress test, has high B[place] Risk score. Has Known CAD, or CAD risk equivalent . To look for any ischemia. 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 Cessation highly advised Essential hypertension 82103277 I10 Hyperlipidemia 13441301 E78.5 Needs to keep LDL less than 100, and HDL more than 40.Current ly not on statin therapyWil l get fasting lipids for follow-up Peripheral vascular disease 371597013 I73.9 Will get arterial doppler, to evaluate severity of peripheral vascular disease Health Concerns Section Related Observation LastModified by Organization Detai ls LastModified Time None Recorded Concern Status LastModified by Organization Details LastModified Time None Recorded Advance Directives Directive N: Payers Encounter Date Sequence Insurance Name Policy Number Policy Brown Covered Member ID Brown Member ID Guarantor Name 04/30/2020 2 [place] [employer] Jeniffer Weller [id number] Jeniffer Weller 04/30/2020 1 [place] Jeniffer Weller [id number] Jeniffer Weller Notes Date Note Type Note Provider Name and Address Organization Details Recorded Time 04/30/2020 text/html 04/30/2020 CC: chest pain Patient is a 64-year-old female with a past medical history of HLD, HTN, COPD, and CKD who is seen in cardiac consultation with a chief complaint of chest pain and hospital follow-up. She was admitted to [facility] on 04/01/2020 with chest pain. Her cardiac enzymes and EKGs were negative. She was PUI for COVID-19 thus stress test was not done. She has continued to have intermittent chest pain that does not have exacerbating factors. She also reports occasional palpitations that last seconds at a time. She has chronic dyspnea on exertion d/t her COPD but it has worsened recently. Denies shortness of breath at rest. No orthopnea. No PNDs. Denies heart palpitations. Denies dizziness. Denies syncope. No near syncope. No ankle or leg edema. No major bleeding events. No reported side effects from medications. Taking medications as prescribed with no missed doses. She smokes about 1ppd for the past 50 years. She also smokes mairjuana occasionally. She denies ETOH abuse. Merrick Lin MD [address] [facility], [place], [address], [place] [facility] 04/30/2020 16:39:25 OBGyn Episode No OBEpisode recorded.
[2024-05-16 12:04] LABS: Add Urine Microscopic? YES; Appearance Urine Turbid (Clear); Bacteria Urine None Seen /hpf; Bilirubin Urine Negative (Negative); Blood Urine 3+ (Negative); Glucose Urine UA Negative (Negative); Ketones Urine Negative (Negative); Leukocyte Esterase Ur 1+ LEU/UL (Negative); Nitrate Urine Negative (Negative); Non Pathogenic Casts 0-2; Protein Urine 2+ mg/dL (Negative); RBC Urine >100 /hpf (0-2); Specific Grav Ur 1.015 (1.001-1.035); Squamous Epithelial Cell Urine Occasional /hpf (Few)
[2024-05-16 12:05] LABS: Need Manual Microscopic Reviewed
[2024-05-16 12:06] LABS: Color Urine Amber (Yellow)
--- NOTE | 2024-05-16 12:37 | ED.GENADULT ---
HPI - General Adult General Chief complaint: Urogenital-Female Stated complaint: urinary issues Time Seen by Provider: 05/16/24 12:03 History of Present Illness HPI narrative: 68-year-old female presenting ED for blood in her urine and feeling unwell. The last 2 days patient is she has had dark urine with blood in it. Urination is painless without urgency or frequency. Started this morning she says that she started sick and has had nausea without vomiting. She took Zofran with improvement. Patient has subjective fever and chills. Denies chest pain difficulty breathing abdominal pain. She had blood in her urine in early March and by time she wanted to see a urologist the bleeding had stopped been no evaluation was performed. She has follow-up with Urology later this in May. Related Data Home Medications ?Medication ?Instructions ?Recorded ?Confirmed ?Last Taken ?Type aspirin 81 mg tablet,delayed 81 mg PO DAILY 04/05/19 05/16/24 05/16/24 History release (Aspir-) alprazolam 1 mg tablet (Xanax) 1 mg PO TID 01/10/21 05/16/24 05/16/24 History atorvastatin 40 mg tablet (Lipitor) 40 mg PO HS 01/10/21 05/16/24 05/16/24 History bupropion HCl 150 mg 24 hr tablet, 150 mg PO HS 01/10/21 05/16/24 05/16/24 History extended release (Wellbutrin XL) isosorbide mononitrate 30 mg 60 mg PO QACLUNCH 01/10/21 05/16/24 05/16/24 History tablet,extended release 24 hr nitroglycerin 0.4 mg sublingual 0.4 mg sublingual ONCE 01/10/21 05/16/24 05/16/24 History tablet potassium chloride 10 mEq 10 meq PO DAILY 01/10/21 05/16/24 05/16/24 History tablet,extended release (K-Tab) carvedilol 6.25 mg tablet (Coreg) 12.5 mg PO Q12H 03/02/22 05/16/24 05/16/24 History venlafaxine 150 mg See Rx Instructions .Route .COMPLEX 03/02/22 05/16/24 05/16/24 History capsule,extended release 24 hr (Effexor XR) cholecalciferol (vitamin D3) 125 125 mcg PO DAILY 11/12/22 05/16/24 05/16/24 History mcg (5,000 unit) tablet (Vitamin D3) hydrocodone bitartrate 10 mg 10 mg PO Q12H 12/16/22 05/16/24 05/16/24 History capsule, oral only, extended rel 12 hr Allergies Allergy/AdvReac Type Severity Reaction Status Date / Time amitriptyline (From Elavil) Allergy Unknown Rash Verified 04/29/23 10:05 Penicillins Allergy Unknown Rash Verified 04/29/23 10:05 Sulfa (Sulfonamide Allergy Unknown Hives Verified 04/29/23 10:05 Antibiotics) sulfanilamide Allergy Unknown Hives Verified 04/29/23 10:05 tetracycline Allergy Unknown Nausea Verified 04/29/23 10:05 ciprofloxacin AdvReac Intermediate Shakiness Verified 04/29/23 10:05 codeine AdvReac Unknown N/V Verified 04/29/23 10:05 doxycycline AdvReac Nausea and Verified 04/29/23 10:05 Vomiting PMFSH Past Medical History Medical History Anxiety Cholecystectomy planned Depression Emphysema lung High cholesterol Hx of pancreatitis Kidney disease Kidney stones Pneumonia Postmenopausal Screening for breast cancer Screening for colon cancer Urinary frequency Vision abnormalities Weight gain Surgical History Surgical History H/O colonoscopy H/O excision of mass 11/22/22 Excision of 5 cm perianal cyst History of cholecystectomy History of esophagogastroduodenoscopy (EGD) History of laryngoscopy History of partial hysterectomy Hx of tonsillectomy Family History Family History Sibling Patient's brother is in good health Dementia Mother Family history of coronary artery disease Acute myocardial infarction Father Patient's father is Acute myocardial infarction Cerebrovascular accident Unknown Heart disease Cerebrovascular accident Other Family history of mental disorder Social History Social History Smoking packs per day: 1 Smoking cigarettes per day: 20.0 Years smoked: 50 Smoking pack-years: 50.00 Smoking status: Current every day smoker Tobacco type: cigarettes Second hand tobacco smoke exposure: No Alcohol intake: never Substance use: current Substance use type: marijuana Other substance usage details: Daily Last use: 03/02/22 Lack of Transportation: No Lack of Food: Never True Current Housing: I Have Housing Concerned About Future Housing: No Difficulty Paying Gas/Electric Bills: No Difficulty Paying for Meds: No Currently Unemployed: No Education: Decline to Answer Difficulty w/ Childcare or Family Care: No Living arrangements: alone Spiritual care concerns: No Exam Narrative: APPEARANCE: No apparent distress. Head: atraumatic. EYES: EOMI, NOSE: Atraumatic NECK: Trachea midline RESPIRATORY: No increased rate of breathing, CTAB CARDIOVASCULAR: RRR, No peripheral edema ABDOMINAL: Non-distendedsoft nontender no guarding rebound MUSCULOSKELETAl: No obvious deformities NEURO: Alert. Moving 4/4 extremities SKIN:: Warm, dry. Normal color PSYCHIATRIC: Normal affect Course Vital Signs Vital signs: Vital Signs Temperature 98.6 F 05/16/24 10:19 Pulse Rate 65 05/16/24 10:19 Respiratory Rate 20 05/16/24 10:19 Blood Pressure 156/67 H 05/16/24 10:19 Pulse Oximetry 96 05/16/24 10:19 Temperature 98.6 F 05/16/24 10:19 Pulse Rate 65 05/16/24 10:19 Respiratory Rate 20 05/16/24 10:19 Blood Pressure 156/67 H 05/16/24 10:19 Pulse Oximetry 96 05/16/24 10:19 Medical Decision Making MDM Narrative Medical decision making narrative: -Course: 68-year-old female presenting hematuria and feeling well. Laboratory studies within normal limits. Urine with multiple RBCs but not indicative of infection. Cultures will be sent. Viral swabs negative. CT abdomen pelvis showed lower lobe atelectasis and evidence of diarrheal illness. Patient was informed of the results and instructed follow-up with neurology as her hematuria. On re-evaluation she is resting bed. Vital signs are stable 2 mm. She should return ED were condition is to worsen. -DDX includes but is not limited to: Viral illness, pyelonephritis, gastroenteritis, pneumonia sepsis, UTI -Independent interpretation of studies: Labs and imaging reviewed -Shared decision making / Disposition:discharged. -RX zofran Vital Signs Vital Signs: Vital Signs Temperature 98.6 F 05/16/24 10:19 Pulse Rate 65 05/16/24 10:19 Respiratory Rate 20 05/16/24 10:19 Blood Pressure 156/67 H 05/16/24 10:19 Pulse Oximetry 96 05/16/24 10:19 Temperature 98.6 F 05/16/24 10:19 Pulse Rate 65 05/16/24 10:19 Respiratory Rate 20 05/16/24 10:19 Blood Pressure 156/67 H 05/16/24 10:19 Pulse Oximetry 96 05/16/24 10:19 Lab Data 05/16/24 12:55 05/16/24 12:55 Labs: Lab Results 05/16/24 05/16/24 Range/Units 11:50 12:55 WBC 8.0 (4.5-10.0) K/mm3 RBC 4.06 L (4.2-5.4) M/mm3 Hgb 13.4 (12.0-15.0) g/dL Hct 37.6 (37.0-47.0) % MCV 92.6 (80-100) fl MCH 33.0 (26-34) pg MCHC 35.6 (32-36) g/dl RDW 12.8 (11.5-14.5) % Plt Count 240 (150-375) k/mm3 MPV 8.6 (7.4-10.4) fl Immature Gran % (Auto) 0.1 (0-0.5) % Neut % (Auto) 55.2 (45.5-73.1) % Lymph % (Auto) 32.0 (18.3-44.2) % Gordon % (Auto) 7.5 (2.6-8.5) % Eos % (Auto) 4.3 (0-4.4) % Baso % (Auto) 0.9 (0.2-1.2) % Lymph # (Auto) 2.55 (0.9-3.2) K/mm3 Gordon # (Auto) 0.6 (0.1-0.6) K/mm3 Eos # (Auto) 0.3 (0-0.3) K/mm3 Baso # (Auto) 0.1 (0.0-0.1) K/mm3 Abs Immat Gran (auto) 0.01 (0.00-0.031) K/mm3 Absolute Neuts (auto) 4.4 (1.3-6.7) K/mm3 Absolute Nucleated RBC 0.000 (0.0-0.012) K/mm3 Nucleated RBC % 0.0 (0.0-0.2) % Sodium 141 (137-145) mmol/L Potassium 3.9 (3.4-5.0) mmol/L Chloride 102 (98-107) mmol/L Carbon Dioxide 32 H (22-30) mmol/L Anion Gap 7 (4-12) mmol/L BUN 11 (7-17) mg/dL Creatinine 0.53 L (0.7-1.0) mg/dL Estim Creat Clear Calc 79 ml/min Estimated GFR > 60 (59 - ) Glucose 93 (65-110) mg/dL Lactic Acid 0.8 (0.7-2.0) mmol/L Calcium 9.6 (8.4-10.2) mg/dL Total Bilirubin 0.5 (0.2-1.3) mg/dL AST 24 (14-36) U/L ALT 17 (6-35) U/L Alkaline Phosphatase 65 (38-126) U/L Total Protein 8.0 (6.3-8.2) g/dL Albumin 4.3 (3.5-5.1) g/dL Urine Color Roxana (Yellow) Urine Appearance Turbid H (Clear) Urine pH 6.0 (5.0-9.0) Ur Specific [place] 1.015 (1.001-1.035) Urine Protein 2+ H (Negative) mg/dL Urine Glucose (UA) Negative (Negative) mg/dL Urine Ketones Negative (Negative) mg/dL Ur Blood (Man) 3+ H (Negative) Urine Nitrate Negative (Negative) Urine Bilirubin Negative (Negative) Urine Urobilinogen 1.0 (<2.0) mg/dL Add Ur Microanalysis Reviewed Leukocyte Esterase Rfl 1+ H (Negative) BRITTANI/UL Urine RBC >100 H (0-2) /hpf Urine WBC 6-10 H (0-3) /hpf Ur Squamous Epith Cells Occasional (Few) /hpf Urine Bacteria None seen /hpf Urine Casts 0-2 Influenza A (RT-PCR) Negative (Negative) Influenza B (RT-PCR) Negative (Negative) RSV (RT-PCR) Negative (Negative) SARS-CoV-2 RNA (RT-PCR) Negative (Negative) Discharge Plan Discharge Clinical Impression: Hematuria, Nausea & vomiting Patient Disposition: Home, Self-Care Condition: Stable Instructions: Antibiotic Form, Acute Nausea and Vomiting (DC), Hematuria (ED) Additional Instructions: Please follow-up with urology for further management and hematuria. If you develop fevers pain on urination or any other symptoms he return to the ED for re-evaluation. Patient Language: Mozambican Prescriptions: No Action atorvastatin [Lipitor] 40 mg Tablet 40 mg PO HS isosorbide mononitrate 30 mg Tablet Extended Release 24 Hr 60 mg PO QACLUNCH potassium chloride [K-Tab] 10 mEq Tablet Extended Release 10 meq PO DAILY nitroglycerin 0.4 mg Tablet, Sublingual 0.4 mg SUBLINGUAL ONCE bupropion HCl [Wellbutrin XL] 150 mg Tablet Extended Release 24 Hr 150 mg PO HS alprazolam [Xanax] 1 mg tablet 1 mg PO TID Patient Comments: pt takes 0.5mg now aspirin [Aspir-81] 81 mg tablet,delayed release (DR/EC) 81 mg PO DAILY hydrocodone bitartrate 10 mg capsule, oral only, ER 12hr 10 mg PO Q12H carvedilol [Coreg] 6.25 mg tablet 12.5 mg PO Q12H Rx Instructions: must administer with a meal/food venlafaxine [Effexor XR] 150 mg capsule,extended release 24hr See Rx Instructions .ROUTE .COMPLEX Rx Instructions: TAKE 1 CAPSULE BY MOUTH DAILY ranolazine [Ranexa] 500 mg Tablet Extended Release 12 Hr 500 mg PO Q12HR 30 Days Qty: 60 0RF cholecalciferol (vitamin D3) [Vitamin D3] 125 mcg (5,000 unit) Tablet 125 mcg PO DAILY quetiapine [Seroquel] 300 mg tablet 300 mg PO QPM Qty: 90 1RF hydrochlorothiazide 25 mg tablet 25 mg PO DAILY Qty: 90 1RF Follow-up/Referrals: Vivek,DO Jimmy [Primary Care Provider] - Tacos Bowers MD [Physician] - 1 Week (Hematuria )
[2024-05-16 13:01] LABS: Basophils Absolute Auto 0.1 K/mm3 (0.0-0.1); Basophils Percent Auto 0.9 % (0.2-1.2); Eosinophils Absolute Auto 0.3 K/mm3 (0-0.3); Eosinophils Percent Auto 4.3 % (0-4.4); Hematocrit 37.6 % (37.0-47.0); Hemoglobin 13.4 g/dL (12.0-15.0); Immature Granulocyte Absolute 0.01 K/mm3 (0.00-0.031); Immature Granulocyte Percent A 0.1 % (0-0.5); Lymphocytes Absolute Auto 2.55 K/mm3 (0.9-3.2); Mean Corpuscular HGB Conc 35.6 g/dl (32-36); Mean Corpuscular Volume 92.6 fl (80-100); Mean Platelet Volume 8.6 fl (7.4-10.4); Monocytes Absolute Auto 0.6 K/mm3 (0.1-0.6); Monocytes Percent Auto 7.5 % (2.6-8.5); Neutrophils Absolute Auto 4.4 K/mm3 (1.3-6.7); Neutrophils Percent Auto 55.2 % (45.5-73.1); Platelet Count Result 240 k/mm3 (150-375); Red Blood Count 4.06 M/mm3 (4.2-5.4); Red Cell Distribution Width 12.8 % (11.5-14.5)
[2024-05-16] MEDS: [UNRECOGNIZED DRUG - OTHER] 1 EACH XX (13:07)
[2024-05-16] MEDS: SODIUM CHLORIDE 0.9% IV 3,000 ML 999 ML IV CONT (13:07)
[2024-05-16 13:10] LABS: Lactic Acid Reflex 0.8 mmol/L (0.7-2.0)
[2024-05-16 13:11] LABS: Alanine Aminotransferase 17 U/L (6-35); Albumin Level 4.3 g/dL (3.5-5.1); Alkaline Phosphatase 65 U/L (38-126); Anion Gap 7 mmol/L (4-12); Aspartate Amino Transferase 24 U/L (14-36); Bilirubin,Total 0.5 mg/dL (0.2-1.3); Blood Urea Nitrogen 11 mg/dL (7-17); Calcium 9.6 mg/dL (8.4-10.2); Carbon Dioxide 32 mmol/L (22-30); Chloride 102 mmol/L (98-107); Estimated CRCL calculation 79 ml/min; Estimated Glomerular Filt Rate > 60; Glucose 93 mg/dL (65-110); Potassium 3.9 mmol/L (3.4-5.0); Sodium 141 mmol/L (137-145)
--- OUTSIDE RECORDS SUMMARY | 2024-05-16 13:25 | XMS_ITS | Encounter Summary ---
Author Organization [facility] Address [facility] [place] [address] [place] [address] Care Team Providers Care Laundry Route Driver Name Role Phone New Referring, Provider Primary Care Provider Un available Jimmy Doyle DO Primary Care Provider + Encounter Details Date Type Department Care Team (Latest Contact Info) Description 12/12/2017 Abstract [facility] Farhana Marina MD Social History Tobacco Use Types Packs/Day Years Used Date Smoking Tobacco: Never Assessed Comments Unknown Sex and Gender Information Value Date Recorded Sex Assigned at Female 05/03/2024 9:57 AM HANDBOOK WRITER Legal Sex Female 4:45 PM CDT Gender Identity Female 05/03/2024 9:57 AM HANDBOOK WRITER Sexual Orientation Not on file documented as of this encounter Plan of Treatment Upcoming Encounters Date Type Department Care Team (Late st Contact Info) Description 08/01/2024 8:20 AM CDT Office Visit [facility] Family & Internal Medicine - [address] [phone] Jimmy Doyle DO [address] [place] [id number] 08/31/2024 12:00 PM CDT Office Visit [facility] [phone] Abhi Aguilar MD [address] [place] [address] [place] [phone] documented as of this encounter Visit Diagnoses Not on filedocumented in this encounter Additional Health Concerns Infection Onset Date Last Indicated Resolved Time COVID-19 Rule Out 01/13/2022 01/13/2022 01/13/2022 9:32 AM CDT COVID-19 Rule Out 01/13/2022 01/13/2022 01/13/2022 9:59 AM CDT COVID-19 Rule Out 01/27/2023 01/27/2023 01/27/2023 11:28 AM CDT documented as of this encounter Care Teams Laundry Route Driver Relationship Specialty Start Date End Date New Referring, Provider PCP - General UNKNOWN PHYSICIAN SPECIALTY 01/25/18 08/18/20 Jimmy Doyle DO [address] [place] [id number] PCP - General FAMILY PRACTICE 08/19/20 documented as of this encounter
--- OUTSIDE RECORDS SUMMARY | 2024-05-16 13:25 | XMS_ITS | Patient Health Summary ---
Author Organization [facility] Address [address] [place] [address] Care Team Providers Care Vice President Of Software Development Name Role Phone Unavailable Primary Care Provider Unavailabl e Note from [facility],non-owned Affiliates and Associated Physician Practices is amultiple site organization consisting of ambulatory clinics and hospital sitesin [place], [place], [place] and [place]. This disclosure is being madepursuant to the Care Everywhere program and may not contain all information available regarding this patient. Last updated 18.[facility] Social History Tobacco Use Types Packs/Day Years Used Date Smoking Tobacco: Never Assessed Sex and Gender Information Value Date Recorded Sex Assigned at Not on file Gender Identity Not on file Sexual Orientation Not on file Procedures * PATH CONSULT ON REFERRED CASE(Performed 01/28/2022) Performed for Illness, unspecified Results * PATH CONSULT ON REFERRED CASE (01/28/2022 10:46 AM CDT) Final Diagnosis URINE/VOIDED (OSC: [id number]; 01/25/2022): - Negative for high grade urothelial carcinoma 01/28/2022 12:22 PM T [facility] Microscopic Description and Comment Microscopic examination substantiates the final diagnosis. 01/28/2022 12:22 PM CDT [facility] Clinical History HEMATURIA 01/28/2022 12:22 PM [facility] Materials Received One thin prep slide received from [facility] [id number]. All material will be returned. 01/28/2022 12:22 PM [facility] Disclaimer The performance characteristics of all immunohistochemical and indirect immunofluorescence stains (if any) cited in this report were determined by the Histopathology Laboratory of [facility]. Some of these tests were developed by our own laboratory and have not been cleared or approved by the US Food and Drug Administration. The FDA does not require this test to go through premarket FDA review. These tests are used for clinical purposes. They should not be regarded as investigational or for research. This laboratory is certified under the Clinical Laboratory Improvement Amendments (CLIA) as qualified to perform high complexity clinical laboratory testing. This case has been personally reviewed and interpreted by the attending (teaching) pathologist. 01/28/2022 12:22 PM CDT [facility] Case Report Surgical Pathology Report ? Case: [id number] ? Authorizing Provider: ??Kathy Mason MD ? Collected: ? 01/28/2022 10:46 AM ? Ordering Location: ? [facility] ? Received: ?01/28/2022 10:51 AM ? Pathologist: ? Flaquito Bruno MD ? Specimen: ?Slide Consultation ? 01/28/2022 12:22 PM CDT [facility] Embedded Images 01/28/2022 12:22 PM CDT [facility] Pathology/Cytolo gy SURGICAL PATHOLOGY CONSULTATION AND REPORT ON REFERRED SLIDES PREPARED ELSEWHERE / Unknown 01/28/2022 10:46 AM CDT 01/28/2022 10:51 AM CDT Kathy Mason MD LAB - PATHOLOGY/CYTO LOGY ORDERABLES Performing Organization Address City/State/[facility] Co de Phone Number [facility] [address] [facility] [phone]
--- OUTSIDE RECORDS SUMMARY | 2024-05-16 13:25 | XMS_ITS | Encounter Summary ---
Author Organization [facility] Address [address] [place] [address] Care Team Providers Care Automobile Bumper Straightener Name Role Phone Unavailable Primary Care Provider Unavailabl e Encounter Details Date Type Department Care Team (Late st Contact Info) Description 01/28/2022 Lab Requisition [facility] [address] [place] [address] Kathy Mason MD [address] [place], [place] [id number] Illness, unspecified Social History Tobacco Use Types Packs/Day Years Used Date Smoking Tobacco: Never Assessed Sex and Gender Information Value Date Recorded Sex Assigned at Not on file Gender Identity Not on file Sexual Orientation Not on file documented as of this encounter Plan of Treatment Not on file documented as of this encounter Procedures Procedure Name Priority Date/Time Associated Diagnosis Comments PATH CONSULT ON REFERRED CASE Routine 01/28/2022 10:46 AM CDT Illness, unspecified documented in this encounter Results * PATH CONSULT ON REFERRED CASE (01/28/2022 10:46 AM CDT) Final Diagnosis URINE/VOIDED (OSC: [id number]; 01/25/2022): - Negative for high grade urothelial carcinoma 01/28/2022 12:22 PM CDT [facility] Microscopic Description and Comment Microscopic examination substantiates the final diagnosis. 01/28/2022 12:22 PM CDT [facility] Clinical History HEMATURIA 01/28/2022 12:22 PM CDT [facility] Materials Received One thin prep slide received from [facility] [id number]. All material will be returned. 01/28/2022 12:22 PM CDT [facility] Disclaimer The performance characteristics of all immunohistochemical and indirect immunofluorescence stains (if any) cited in this report were determined by the Histopathology Laboratory of [facility]. Some of these tests were developed by [...] attending (teaching) pathologist. 01/28/2022 12:22 PM CDT [facility] Case Report Surgical Pathology Report ? Case: [id number] ? Authorizing Provider: ??Kathy Mason MD ? Collected: ? 01/28/2022 10:46 AM ? Ordering Location: ? [facility] ? Received: ?01/28/2022 10:51 AM ? Pathologist: ? Flaquito Bruno MD ? Specimen: ?Slide Consultation ? 01/28/2022 12:22 PM CDT [facility] Embedded Images 01/28/2022 12:22 PM CDT [facility] Pathology/Cytolo gy SURGICAL PATHOLOGY CONSULTATION AND REPORT ON REFERRED SLIDES PREPARED ELSEWHERE / Unknown 01/28/2022 10:46 AM CDT 01/28/2022 10:51 AM CDT Kathy Mason MD LAB - PATHOLOGY/CYTO LOGY ORDERABLES Performing Organization Address City/State/[facility] Co wi Phone Number [facility] [address] [phone] documented in this encounter Visit Diagnoses Diagnosis Illness, unspecified documented in this encounter
--- OUTSIDE RECORDS SUMMARY | 2024-05-16 13:26 | XMS_ITS | Referral Summary ---
Author Organization [facility] Address [address] [place] [address] Care Team Providers Care Photo Checker And Assembler Name Role Phone Unavailable Primary Care Provider Unavailabl e Source Comments [facility],non-owned Affiliates and Associated Physician Practices is amultiple site organization consisting of ambulatory clinics and hospital sitesin [place], [place] and [place]. This disclosure is being madepursuant to the Care Everywhere program and may not contain all information available regarding this patient. Last updated 18.[facility] [employer] Social History Tobacco Use Types Packs/Day Years Used Date Smoking Tobacco: Never Assessed Sex and Gender Information Value Date Recorded Sex Assigned at Not on file Gender Identity Not on file Sexual Orientation Not on file Plan of Treatment Not on file
--- OUTSIDE RECORDS SUMMARY | 2024-05-16 13:26 | XMS_ITS | Encounter Summary ---
Author Organization [facility] Address [address] [place] [address]. [place] [address] [place] [address] Care Team Providers Care Sheet Metal Worker Supervisor Name Role Phone Jimmy Doyle DO Primary Care Provider + Reason for Visit * Reason Onset Date Comments Question 05/15/2024 Encounter Details Date Type Department Care Team (Late st Contact Info) Description 05/15/2024 Telephone [facility] Family & Internal Medicine [facility] [address] [place] [phone] Jimmy Doyle DO [address] [place] [address] Question Social History Tobacco Use Types Packs/Day Years Used Date Smoking Tobacco: Every Day Cigarettes 1 54.7 Started: [birth year]/19/1967 Smokeless Tobacco: Never Comments:trying to quit. 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 Never 10/31/2023 Q2: How many drinks containi ng alcohol do you have on a typical day when you are drinking? Patient does not drink Q3: How often do you have si x or more drinks on one occasion? Never 10/31/2023 PHQ-2 Answer Date Recorded Patient Health Questionnaire-2 Score 3 05/03/2024 Comments No Sex and Gender Information Value Date Recorded Sex Assigned at Female 05/03/2024 9:57 AM HARDWOOD FLOOR REFINISHER Legal Sex Female 4:45 PM CDT Gender Identity Female 05/03/2024 9:57 AM HARDWOOD FLOOR REFINISHER Sexual Orientation Not on file documented as of this encounter Functional Status * RETIRED Are you deaf or do you have serious difficulty hearing Answer Date of Assessment Author Status No 09/21/2020 1:00 PM CDT Activ e * RETIRED Are you blind or do you have serious difficulty seeing, even when wearing glasses? Answer Date of Assessment Author Status No 09/21/2020 1:00 PM CDT Activ e * Do you have serious difficulty walking or climbing stairs? Answer Date of Assessment Author Status No 09/21/2020 1:00 PM CDT Meryl Peres RN Active * Do you have difficulty dressing or bathing? Answer Date of Assessment Author Status No 09/21/2020 1:00 PM CDT Meryl Peres RN Active * Because of a physical, mental, or emotional condition, do you have difficulty doing errands alone such as visiting a doctor's office or shopping? Answer Date of Assessment Author Status No 09/21/2020 1:00 PM CDT Meryl Peres RN Active documented as of this encounter Mental Status * Because of a physical, mental, or emotional condition, do you have serious difficulty concentrating, remembering, or making decisions? Answer Entry Date Author Status No 09/21/2020 1:00 PM DONITAT Meryl Peres RN Active documented in this encounter Progress Notes * Jimmy Doyle DO - 05/16/2024 10:37 AM CST Noted. WOOD FLOOR REFINISHER * Adia Mckenna MA - 05/16/2024 9:44 AM CST Spoke with patient and informed her PCP recommends a UA. The patient states she is going to the ER as of this writing. Informed patient I would let PCP know. Patient v/u. WOOD FLOOR REFINISHER * Jimmy Doyle DO - 05/15/2024 3:09 PM CST OK for urinalysis. WOOD FLOOR REFINISHER * Adia Cochran - 05/15/2024 2:45 PM CST Patient had blood in her urine for 5 weeks and went to the Urologist but wasn't bleeding at that time. Patient is now bleeding again but doesn't go back to the Urologist until Jun 10 and wants to know if we want her to come in for a UA. Please call to discuss. WOOD FLOOR REFINISHER documented in this encounter Plan of Treatment Upcoming Encounters Date Type Department Care Team (Late st Contact Info) Description 08/01/2024 8:20 AM CDT Office Visit [facility] Family & Internal Medicine - [address] [phone] Jimmy Doyle DO [address] [place] [address] 08/31/2024 12:00 PM CDT Office Visit [facility] [phone] Abhi Aguilar MD [address] [facility] [address] [place] [phone] documented as of this encounter Goals Goal Patient Goal Type Associated Problems Recent Progress Patient-Stated? Author Patient will return to prior living situation and remain independent in ADLs upon discharge from hospital General Daysi Nayak RN documented as of this encounter Visit Diagnoses Not on filedocumented in this encounter Additional Health Concerns Assessment Noted Time PHQ-9 Depression Total Score: 10 025 9:55 AM HARDWOOD FLOOR REFINISHER documented as of this encounter Care Teams Sheet Metal Worker Supervisor Relationship Specialty Start Date End Date Jimmy Doyle DO NPI: [id number] [place] [address] PCP - General FAMILY PRACTICE 08/19/20 documented as of this encounter
--- OUTSIDE RECORDS SUMMARY | 2024-05-16 13:26 | XMS_ITS | Referral Summary ---
Author Organization [facility] Address [facility] [place] [address] Care Team Providers Care Medical And Health Services Manager Name Role Phone Jimmy Doyle Primary Care Provide r Derrell Varma MD Unavailable [phone] Allergies Active Allergy Reactions Criticality Noted Date Comments Amitriptyline Hives,Mental status changes High Reaction: Hives, Mental Status Changes, Penicillins Hives High Reaction: Hives, Sulfa (Sulfonamide Antibiotics) Hives High Reaction: Hives, Tetracyclines Hives High Reaction: Hives, Medications ondansetron ODT (ZOFRAN-ODT) 4 mg disintegrating tablet Take 1 tablet (4 mg total) by mouth every 8 (eight) hours as needed for nausea or vomiting 10 tablet 2 Active ALPRAZolam (XANAX) 1 mg tablet Take 1 mg by mouth 3 (three) times a day as needed 0 2 Active aspirin 81 mg chewable tablet Take 81 mg by mouth daily Active atorvastatin (LIPITOR) 40 mg tablet Take 40 mg by mouth nightly 2 Active carvediloL (COREG) 6.25 mg tablet Take 6.25 mg by mouth 2 (two) times a day 2 Active venlafaxine XR (EFFEXOR-XR) 150 mg 24 hr capsule Take 150 mg by mouth daily Active hydroCHLOROthiazid e (HYDRODIURIL) 25 mg tablet Take 25 mg by mouth daily 2 Active HYDROcodone-acetam inophen (NORCO) 10-325 mg per tablet Take 1 tablet by mouth 3 (three) times a day as needed 2 Active icosapent ethyL (VASCEPA) 1 gram capsule Take 2 g by mouth 2 (two) times a day 2 Active isosorbide mononitrate ER (IMDUR) 30 mg 24 hr tablet Take 30 mg by mouth daily 2 Active nitroglycerin (NITROSTAT) 0.[address] 0.4 mg under the tongue every 5 (five) minutes as needed 1 Active potassium chloride ER (KLOR-CON) 10 mEq CR tablet Take 10 mEq by mouth daily 2 Active polyethylene glycol (MIRALAX) 17 gram/dose powder Take 17 g by mouth 2 (two) times a day Active QUEtiapine (SEROquel) 300 mg tablet Take 300 mg by mouth nightly 2 Active oxybutynin XL (DITROPAN-XL) 10 mg 24 hr tablet Take 10 mg by mouth daily 2 Active ondansetron (ZOFRAN) 8 mg tablet Take 8 mg by mouth every 8 (eight) hours as needed 2 Active cholecalciferol (VITAMIN D-3) 25 mcg (1,000 unit) tablet Take 1,000 Units by mouth daily 0 Active valACYclovir (VALTREX) 1 gram tablet Take 1 g by mouth 3 (three) times a day as needed 2 Active cilostazoL (PLETAL) 50 mg tabletIndications: Intermittent Claudication Take 1 tablet (50 mg total) by mouth 2 (two) times a day 60 tablet 1 2 Active triamcinolone (KENALOG) 0.5 % cream Apply topically 3 (three) times a day 30 g 2 Active ondansetron ODT (ZOFRAN-ODT) 4 mg disintegrating tabletIndications: Nausea and Vomiting Take 1 tablet (4 mg total) by mouth every 6 (six) hours as needed for nausea or vomiting 20 tablet 2 Active Active Problems Problem Noted Date Diagnosed Date Pneumonia of both lower lobes due to infectious organism 02/09/2022 Abdominal bloating 12/02/2011 Passing flatus 12/02/2011 Constipation 12/02/2011 Nausea with vomiting 12/02/2011 Right upper quadrant abdominal pain 12/02/2011 Social History Tobacco Use Types Packs/Day Years Used Date Smoking Tobacco: Every Day Cigarettes Smokeless Tobacco: Never Tobacco Cessation:Ready to Q uit: Not Asked; Counseling Given: Not Answered Alcohol Use Standard Drinks/Week Comments Not Currently 0 (1 standard drink = 0.6 oz pur e alcohol) Personal Safety Answer Date Recorded Getting School Help Needed Not on file 04/22 Comments No Sex and Gender Information Value Date Recorded Sex Assigned at Not on file Legal Sex Female 12:04 PM RADIOLOGY EQUIPMENT SERVICER Gender Identity Not on file Sexual Orientation Not on file Last Filed Vital Signs Vital Sign Reading Time Taken Comments Blood Pressure 134/66 02/12/2022 6:54 AM CDT Pulse 88 02/12/2022 6:54 AM CDT Temperature 36.8 ??C (98.2 ??F) 02/12/2022 6:54 AM CD T Respiratory Rate 16 02/12/2022 8:54 AM CDT Oxygen Saturation 94% 02/12/2022 6:54 AM CDT Inhaled Oxygen Concentration - - Weight 70.3 kg (155 lb) 02/09/2022 2:13 PM CDT Height 170.2 cm (5' 7 ) 02/09/2022 2:13 PM CDT Body Mass Index 24.28 02/09/2022 2:13 PM CDT Plan of Treatment Not on file Insurance [employer]PA MEDICARE [employer] [facility] MEDICARE [employer] MEDICARE [employer] Advance Directives For more information, please contact: [phone] * Full Code (Latest Code Status on File) Date Activated Date Inactivated Comments 02/09/2022 9:51 PM 02/12/2022 5:52 PM Care Teams Medical And Health Services Manager Relationship Specialty Start Date End Date Jimmy Doyle DO [address] [place] [address] PCP - General Family Medicine 02/12/22 Derrell Varma MD [facility] [address] [address] Surgeon Surgery 02/12/22
--- OUTSIDE RECORDS SUMMARY | 2024-05-16 13:26 | XMS_ITS | Clinical Summary ---
Author Organization [facility] Address [address] [place] [address] Care Team Providers Care Carding Utility Tender Name Role Phone Unavailable Primary Care Provider Unavailabl e Source Comments [facility],non-owned Affiliates and Associated Physician Practices is amultiple site organization consisting of ambulatory clinics and hospital sitesin [place], [place], [place] and [place]. This disclosure is being madepursuant to the Care Everywhere program and may not contain all information available regarding this patient. Last updated 18.[facility] b-datum Social History Tobacco Use Types Packs/Day Years Used Date Smoking Tobacco: Never Assessed Sex and Gender Information Value Date Recorded Sex Assigned at Not on file Gender Identity Not on file Sexual Orientation Not on file Plan of Treatment Health Maintenance Due Date Last Done Comments BONE DENSITY TESTING 1957 COLOGUARD (AGES 45-75) - COL ON CA SCREENING 1957 COLON MONITORING 1957 COLONOSCOPY - COLON CA SCREENING 1957 CT COLONOGRAPHY - COLON CA SCREENING 1957 Colorectal Cancer Screening 1957 FIT - COLON CA SCREENING 1957 FLEX SIG - COLON CA SCREENING 1957 LIPID TESTING 1957 MAMMOGRAM 1957 HEPATITIS C SCREENING 11/30/1975 DTAP/TDAP/TD VACCINES (1 - Tdap) 1976 PNEUMOCOCCAL VACCINE 50+ (1 of 1 - PCV) 12/05/2007 ZOSTER VACCINE (1 of 2) 12/05/2007 COVID-19 VACCINE ( - 2023-2 5 season) 2023 INFLUENZA VACCINE (#1) 2023 DEPRESSION SCREENING 04/18/2024 MEDICARE AWV ? CALENDAR YEAR 2024 Respiratory Syncytial Virus (RSV) Vaccine Pt: or over 60 yrs (1 - 1-dose 75+ series) 2032 HEPATITIS B VACCINE Aged Out No longe r eligible based on patient's age to complete this topic HIB VACCINE Aged Out No longer eligi ble based on patient's age to complete this topic HPV VACCINE Aged Out No longer eligi ble based on patient's age to complete this topic MENINGOCOCCAL (Group B) VACCINE Aged Out No longer eligible based on patient's age to complete this topic MENINGOCOCCAL VACCINE Aged Out No angie faraz eligible based on patient's age to complete this topic
--- OUTSIDE RECORDS SUMMARY | 2024-05-16 13:26 | XMS_ITS | Encounter Summary ---
Author Organization [facility] Address [address] [place] [address]. [place] [address] [place] [address] Care Team Providers Care Rv Repair Technician Name Role Phone Jimmy Doyle Primary Care Provider + Encounter Details Date Type Department Care Team (Late st Contact Info) Description 01/11/2022 Abstract [facility] [address] Doni Moore MA Social History Tobacco Use Types Packs/Day Years Used Date Smoking Tobacco: Every Day Cigarettes 1 54.7 Started: [birth year]/19/1967 Smokeless Tobacco: Never Comments:trying to quit. 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 Never 08/19/2020 Average Number of Drinks Not on file 021 Frequency of Binge Drinking Not on file 07/2020 PHQ-2 Answer Date Recorded PHQ-2 Score - If the patient scores above 3, please move on to questions 3-9 5 05/13/2021 Comments No Sex and Gender Information Value Date Recorded Sex Assigned at Female 05/03/2024 9:57 AM LIMO DRIVER Legal Sex Female 4:45 PM CDT Gender Identity Female 05/03/2024 9:57 AM LIMO DRIVER Sexual Orientation Not on file COVID-19 Exposure Response Date Recorded In the last 10 days, have yo u been in contact with someone who was confirmed or suspected to have Coronavirus/COVID-19? No / Unsure 01/13/2022 8:45 AM CDT documented as of this encounter Functional Status [...] Date Author Status No 09/21/2020 1:00 PM CDT Meryl Peres RN Active documented in this encounter Plan of Treatment Upcoming Encounters Date Type Department Care Team (Late st Contact Info) Description 08/01/2024 8:20 AM CDT Office Visit [facility] Family & Internal Medicine - [address] [phone] Jimmy Doyle DO [address] [place] [address] 08/31/2024 12:00 PM CDT Office Visit [facility]-[address] [phone] Abhi Aguilar MD [address] [place] [address] [address] [place] [address] documented as of this encounter Goals Goal Patient Goal Type Associated Problems Recent Progress Patient-Stated? Author Patient will return to prior living situation and remain independent in ADLs upon discharge from [facility] Daysi Nayak RN documented as of this encounter Procedures Procedure Name Priority Date/Time Associated Diagnosis Comments COMPREHENSIVE METABOLIC PANEL Routine 01/08/2022 LIPID PANEL Routine 01/08/2022 documented in this encounter Results * (ABNORMAL) COMPREHENSIVE METABOLIC PANEL (01/08/2022) SODIUM S/P/B 142 POTASSIUM S/P/B 4.1 CO2 31 CHLORIDE S/P/B 101 GLUCOSE 54 mg/dL CALCIUM S/P/B 9.4 BUN 10 CREATININE S/P/B 0.65 0.5 - 1.0 EGFR NON-AFR. AMER. 98(A) <=90 ALKALINE PHOSPHATASE S/P/B 69 ALT 14 AST 14 BILIRUBIN TOTAL S/P/B 0.4 ALBUMIN S/P/B 4.2 3.5 - 5.0 TOTAL PROTEIN S/P/B 6.6 GLOBULIN 2.4 01/08/2022 us Doc [facility] Final Result * LIPID PANEL (01/08/2022) CHOLESTEROL 129 HDL 34 TRIGLYCERIDES 126 NON HDL CHOLESTEROL 95 LDL (CALCULATED) 74 01/08/2022 us Doc [facility] Edited Resul t - Final documented in this encounter Visit Diagnoses Not on filedocumented in this encounter Additional Health Concerns Infection Onset Date Last Indicated Resolved Time COVID-19 Rule Out 01/13/2022 01/13/2022 01/13/2022 9:32 AM CDT COVID-19 Rule Out 01/13/2022 01/13/2022 01/13/2022 9:59 AM CDT COVID-19 Rule Out 01/27/2023 01/27/2023 01/27/2023 11:28 AM CDT Assessment Noted Time PHQ-9 Depression Total Score: 8 05/13/19 10:36 AM LIMO DRIVER documented as of this encounter Care Teams Rv Repair Technician Relationship Specialty Start Date End Date Jimmy Doyle DO [facility] [address] [place] [address] PCP - General FAMILY PRACTICE 08/19/20 documented as of this encounter
--- OUTSIDE RECORDS SUMMARY | 2024-05-16 13:26 | XMS_ITS | Clinical Summary ---
Author Organization [facility] Address [facility] [place] [address] [place] [address] Care Team Providers Care Equipment Oiler Name Role Phone Starla Arshad DO Primary Care Provider + Allergies Active Allergy Reactions Criticality Noted Date Comments Amitriptyline Unknown High 01/16/2018 Psychiatric changes Bromsulphalein Unknown 08/19/2020 Ciprofloxacin Shakiness High 02/05/2020 Codeine Nausea and Vomiting,Unknown 01/16/2018 Lurasidone Hcl Unknown 01/16/2018 Oxybutynin Unknown 02/05/2020 Penicillins Rash,Unknown Low 01/16/2018 Sulfa Antibiotics Hives,Unknown 01/16/2018 Tetracycline Nausea Only 02/05/2020 Medications aspirin EC (ASPIRIN EC) 81 MG tablet Take 1 tablet (81 mg total) by mouth daily. 09/07/19 19 Active vitamin D3 (CHOLECALCIFEROL) 25 mcg tablet Take 1 tablet (25 mcg total) by mouth daily. Active nitroglycerin (NITROSTAT) 0.[address] 1 tablet (0.4 mg total) under the tongue every 5 (five) minutes as needed for Chest Pain. Maximum of 3 doses.THEN CALL 911 25 tablet 2 07/07/19 24 Active isosorbide mononitrate ER (IMDUR) 30 MG 24 hr tabletIndications :Primary hypertension Take 3 tablets (90 mg total) by mouth daily. 270 tablet 3 08/01/19 24 Active ondansetron (ZOFRAN-ODT) 4 MG disintegrating tabletIndications :Nausea Take 1 tablet (4 mg total) by mouth every 8 (eight) hours as needed for Nausea. 20 tablet 08/01/19 24 Active hydrocortisone 2.5 % creamIndications: Hemorrhoids, unspecified hemorrhoid type Apply topically 2 (two) times daily. 28 g 09/09/19 24 Active fluticasone propionate (FLONASE) 50 MCG/ACT nasal sprayIndications: Sinusitis, unspecified chronicity, unspecified location 2 sprays by Each Nostril route daily. 9.9 mL 11/28/19 24 Active hydroCHLOROthiazi de (HYDRODIURIL) 25 MG tabletIndications :Primary hypertension TAKE 1 TABLET(25 MG) BY MOUTH DAILY 90 tablet 1 12/08/19 24 Active ranolazine ER (RANEXA) 500 MG 12 hr tablet Take 1 tablet (500 mg total) by mouth 2 (two) times daily. 180 tablet 1 12/26/19 24 Active dextromethorphan- guaiFENesin ER (MUCINEX DM) 30-600 MG TABLET SR 12 HR 12 hr tablet Take 1 tablet by mouth every 12 (twelve) hours as needed. Active valACYclovir (VALTREX) 1 g tabletIndications :Cold sore Take 1 tablet (1,000 mg total) by mouth every 8 (eight) hours. 21 tablet 01/05/20 24 Active potassium chloride CR (KLOR-CON M) 10 MEQ tabletIndications :Hypopotassemia TAKE 1 TABLET(10 MEQ) BY MOUTH DAILY 90 tablet 02/21/20 24 Active VASCEPA 1 g capsule TAKE 2 CAPSULES BY MOUTH TWICE DAILY WITH MEALS 360 capsule 2 03/06/20 24 Active atorvastatin (LIPITOR) 40 MG tablet TAKE 1 TABLET(40 MG) BY MOUTH EVERY NIGHT AT BEDTIME 90 tablet 2 03/19/20 24 Active venlafaxine XR (EFFEXOR-XR) 150 MG 24 hr capsuleIndication s:Bipolar affective disorder, currently depressed, mild (CMS/HCC HHS/HCC) TAKE 1 CAPSULE(150 MG) BY MOUTH DAILY 90 capsule 03/21/20 24 Active oxybutynin XL (DITROPAN-XL) 10 MG 24 hr tabletIndications :Incomplete emptying of bladder TAKE 1 TABLET(10 MG) BY MOUTH EVERY NIGHT AT BEDTIME 90 tablet 04/24/19 25 Active carvedilol (COREG) 12.5 MG tabletIndications :Essential hypertension TAKE 1 TABLET BY MOUTH TWICE DAILY, EVERY 12 HOURS, WITH MEALS OR FOOD 180 tablet 04/24/19 25 Active QUEtiapine (SEROQUEL) 300 MG tabletIndications :Bipolar affective disorder, currently depressed, mild (CMS/HCC HHS/HCC) TAKE 1 TABLET(300 MG) BY MOUTH EVERY NIGHT AT BEDTIME 90 tablet 04/24/19 25 Active HYDROcodone-aceta minophen (NORCO) 10-325 MG tabletIndications :Chronic Pain Take 1 tablet by mouth every 8 (eight) hours as needed for Pain. Indications: Chronic Pain 05/03/19 25 Active ALPRAZolam (XANAX) 0.5 MG tabletIndications :Anxiety Take 1 tablet (0.5 mg total) by mouth 2 (two) times daily as needed for Anxiety. 60 tablet 05/14/19 25 Active azithromycin (ZITHROMAX) 250 MG tabletIndications :Sinusitis, unspecified chronicity, unspecified location Take 2 tabs daily for one day, then take 1 tab daily 6 tablet 11/28/19 24 2024 Discontinued(T herapy completed) loratadine (CLARITIN) 10 MG tabletIndications :Sinusitis, unspecified chronicity, unspecified location Take 1 tablet (10 mg total) by mouth daily. 30 tablet 11/28/19 24 2024 Discontinued(T herapy completed) oxybutynin XL (DITROPAN-XL) 10 MG 24 hr tabletIndications :Incomplete emptying of bladder TAKE 1 TABLET(10 MG) BY MOUTH EVERY NIGHT AT BEDTIME 90 tablet 01/24/20 24 2024 Discontinued QUEtiapine (SEROQUEL) 300 MG tabletIndications :Bipolar affective disorder, currently depressed, mild (CMS/HCC HHS/HCC) TAKE 1 TABLET(300 MG) BY MOUTH EVERY NIGHT AT BEDTIME 90 tablet 01/24/20 24 2024 Discontinued carvedilol (COREG) 12.5 MG tabletIndications :Essential hypertension TAKE 1 TABLET BY MOUTH TWICE DAILY, EVERY 12 HOURS, WITH MEALS OR FOOD 180 tablet 01/24/20 24 2024 Discontinued predniSONE (DELTASONE) 20 MG tabletIndications :Spinal stenosis of lumbar region without neurogenic claudication Take 3 tablets for three days, then take 2 tablets for three days, then take 1 tablet for three days 18 tablet 02/01/20 24 2024 Discontinued(T herapy completed) ALPRAZolam (XANAX) 0.5 MG tabletIndications :Anxiety Take 1 tablet (0.5 mg total) by mouth 2 (two) times daily as needed for Anxiety. 60 tablet 04/02/20 24 2024 Discontinued(R eorder) HYDROcodone-aceta minophen (NORCO) 10-325 MG tabletIndications :Chronic Pain Take 1 tablet by mouth every 8 (eight) hours as needed for Pain. Indications: Chronic Pain 90 tablet 04/12/20 24 2024 Discontinued Active Problems Problem Noted Date Diagnosed Date Bipolar affective disorder, currently depressed, mild ([facility]) 05/03/2023 Sedative, hypnotic or anxiol ytic dependence, uncomplicated ([facility]) 03/25/2022 PAD (peripheral artery disease) 02/19/2022 Right iliac artery stenosis 02/19/2022 Allergies 07/31/2021 Right lower quadrant abdominal pain 07/31/2021 Tobacco abuse 07/31/2021 Radiculopathy, lumbar region 12/29/2020 Other intervertebral disc degeneration, lumbar r egion 12/29/2020 Spondylolisthesis of lumbar region 12/29/2020 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 10/01/2020 Degenerative tear of acetabular labrum of left h ip 09/10/2020 History of noncompliance with medical treatment 09/10/2020 Prediabetes 08/27/2020 Anxiety 08/18/2020 Chronic left hip pain 08/18/2020 Contact with and (suspected) exposure to other intestinal infectious diseases 08/18/2020 Exposure to HIV virus 08/18/2020 History of cholecystectomy 08/18/2020 History of pancreatitis 08/18/2020 Hypokalemia 08/18/2020 Incomplete emptying of bladder 08/18/2020 Nausea 08/18/2020 Nicotine dependence 08/18/2020 On fci drug therapy 08/18/2020 Polyarthritis 08/18/2020 Postmenopausal status 08/18/2020 Primary osteoarthritis of left knee 08/18/2020 Triggering of digit 08/18/2020 Vitamin D deficiency 08/18/2020 Cerebrovascular accident ([facility]) 04/30 Body mass index (BMI) of 28.0 to 28.9 in adult 0 10/12/2018 Low back pain 10/12/2018 Muscle spasm 02/03/2018 Lumbar foraminal stenosis 01/17/2018 Bulging lumbar disc 01/16/2018 Hypertension 01/16/2018 GERD (gastroesophageal reflux disease) 8 Lumbar stenosis 01/16/2018 Osteoarthrosis 01/16/2018 Depressive disorder 01/16/2018 Chronic obstructive pulmonary disease ([facility]) 01/16/2018 Hyperlipidemia 01/16/2018 Resolved Problems Problem Noted Date Diagnosed Date Resolved Date Screening for breast cancer 08/18/2020 08/25/2020 Infiltrate of lung present on chest x-ray 08/18/2020 05/03/2024 Encounter for preventive health examination 02/13/2014 08/25/2020 Encounters Date Type Department Care Team Description 05/16/2024 Telephone [facility] Internal [address] [phone] Starla Arshad, DO Advice 05/15/2024 Telephone [facility] Internal [address] [address] Starla Arshad, DO Question 05/14/2024 Telephone [facility] Internal [address] [address] Starla Arshad, DO Medication Request 05/03/2024 9:40 AM SUGAR SAMPLER Office Visit [facility] Internal [address] [address] Starla Arshad, DO Spinal Stenosis (The patient presents for a 3 month follow up ) 05/03/[address] [address] Starla Arshad, DO Question 05/03/2024 Travel 04/20/2024 Scan Voalte SRVCS Scanned, [facility] 04/17/2024 Telephone [facility] Family & Internal [id number] [place] [address] Starla Arshad, DO Results 04/12/2024 Telephone [facility] Internal [address] [place] [address] Starla Arshad, DO Medication Request 04/04/2024 9:40 AM SUGAR SAMPLER Allied Health/Nurse Visit [facility] Internal [address] [address] Starla Arshad, DO Allied Health Visit 04/04/2024 - 04/04/2024 11:59 PM SUGAR SAMPLER Hospital Encounter [facility] [place] [address] Starla Arshad, DO Discharge Disposition: Home or Self Care (Routine Discharge) 04/04/2024 Travel 04/02/2024 Travel 04/02/2024 Telephone [facility] Internal [address] [address] Starla Arshad, DO Medication Request 04/02/[address] [address] Starla Arshad, DO Advice 03/26/2024 8:10 AM SUGAR SAMPLER - 03/26/2024 12:41 PM SUGAR SAMPLER Emergency [facility] [place] [address] Vin [place] NP Urinary Symptoms Discharge Disposition: Home or Self Care (Routine Discharge) 03/26/2024 Travel 03/26/[address] [address] Starla Arshad, DO Urine 03/07/[address] [address] Starla Arshad, DO Advice 03/05/2024 Telephone [facility] Family & Internal Medicine - [address] [phone] Starla Arshad, DO Med Refills 03/02/2024 12:00 PM SUGAR SAMPLER Office Visit [facility] [phone] Abhi Aguilar MD Coronary Artery Disease (6mo); Hypertension 03/02/2024 Travel from Last 3 Months Immunizations Name Administration Dates Next Due COVID-19 Vaccine (Generic) 01/27/2023 Fluzone 6 Months+ Quad (0.5 mL Prefilled Syringe) 01/21/2022 Fluzone High Dose (IIV, triv alent, 0.5mL) 01/18/2024 Fluzone High Dose - >Age 65 (Prefilled Syringe) 01/27/2023 Influenza (Generic) 12/25/2020, 7,01/24/2016,2014,02/09/2015,02/15/2014,01/16/2014,0 01/15/2013,05/14/2009 Influenza Adult (Generic) 01/07/2020,01/25/2019, 01/12/2018 PFIZER COVID-19 (ORIGINAL FORMULATION, PURPLE CAP) mRNA, LNP-S, PF, 30 MCG/0.3 ML DOSE 01/30/2021 Pneumococcal (Pneumovax 23) 05/14/2007 Pneumococcal (Prevnar 13) 01/12/2020 Pneumococcal (Prevnar 20) 09/28/2023,12/31/2022 Shingrix 04/06/2021,01/27/2021 Family History Medical History Relation Comments Stroke Father Tuberculosis Maternal Grandmother Heart Disease Mother Dementia Sister Relation Status Comments Father Maternal Grandmother Mother Sister Social History Tobacco Use Types Packs/Day Years Used Date Smoking Tobacco: Every Day Cigarettes 1 54.7 Started: 08/19/1969 Smokeless Tobacco: Never Tobacco Cessation:Ready to Q uit: No; Counseling Given: Yes Comments:trying to quit. provider to consumer credit counselor Alcohol Use Standard Drinks/Week Comments Never [...] Sex Assigned at Female 05/03/2024 9:57 AM SUGAR SAMPLER Legal Sex Female 4:45 PM CDT Gender Identity Female 05/03/2024 9:57 AM SUGAR SAMPLER Sexual Orientation Not on file Last Filed Vital Signs Vital Sign Reading Time Taken Comments Blood Pressure 124/84 05/03/2024 9:57 AM SUGAR SAMPLER Pulse 81 05/03/2024 9:57 AM SUGAR SAMPLER Temperature 36.7 ??C (98.1 ??F) 05/03/2024 9:57 AM CS T Respiratory Rate 16 05/03/2024 9:57 AM SUGAR SAMPLER Oxygen Saturation 91% 05/03/2024 9:57 AM SUGAR SAMPLER Inhaled Oxygen Concentration - - Weight 66.8 kg (147 lb 3.2 oz) 05/03/2024 9:57 A M SUGAR SAMPLER Height 165.1 cm (5' 5 ) 05/03/2024 9:57 AM SUGAR SAMPLER Body Mass Index 24.5 05/03/2024 9:57 AM SUGAR SAMPLER Plan of Treatment Upcoming Encounters Date Type Department Care Team (Late st Contact Info) Description 08/01/2024 8:20 AM CDT Office Visit [facility] Family & Internal Medicine - [address] [phone] Starla Arshad, [address] [place] [phone] 08/31/2024 12:00 PM CDT Office Visit [facility] [place] [phone] Abhi Aguilar MD [address] [facility] [address] [place] [address] Health Maintenance Due Date Last Done Comments Lung Cancer Screening 12/05/2007 RSV Immunization or 60+ Years (1 - Risk 60-74 years 1-dose series) 2017 Mammogram Screening 09/09/2022 09/09/2020, COVID-19 Vaccine ( - season) 2024 01/18/2024, 01/27/2023, 01/27/2023, Additional history exists ASCVD LDL 04/05/2024 04/05/2023, 12/18, 08/11/2021, Additional history exists DTaP, Tdap and Td Vaccines (1 - Tdap) 10/30/2024 Postponed from 1976 (No Insurance Coverage) Annual Medicare Wellness Visit 10/31/2024 10/31/2023 Dexa Scan (General) 01/31/2025 Postpone d from 2022 (Patient Refused) Colorectal Cancer Screening Colonoscopy (10 Years) 09/10/2098 Postponed from 1957 (Patient Refused) Zoster Vaccines Completed 04/06/2021, 01/27/2021 Hepatitis C Completed 04/05/2023 Pneumococcal Vaccine: 65+ Years Completed 09/28/2023, 12/31/2022, 01/12/2020, Additional history exists Influenza Adult Completed 01/18/2024, 01/16, 01/21/2022, Additional history exists PHQ-2 (Physician Gentry) Completed 05/03/2024 Meningococcal B Vaccine Aged Out No l onger eligible based on patient's age to complete this topic Meningococcal Vaccine Aged Out No angie faraz eligible based on patient's age to complete this topic RSV Immunizations Under 20 Months Aged Out No longer eligible based on patient's age to complete this topic Goals Goal Patient Goal Type Associated Problems Recent Progress Patient-Stated? 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 Procedure Name Priority Date/Time Associated Diagnosis Comments MG/PCCL UDS W CONF Routine 05/03/2024 9: 46 AM SUGAR SAMPLER Encounter for long-term (current) use of medications URINE BACTERIA CULTURE Routine 10:08 AM SUGAR SAMPLER Gross hematuria Proteinuria, unspecified type URINALYSIS MICRO ONLY Routine 04/04/2024 10:08 AM SUGAR SAMPLER Gross hematuria Proteinuria, unspecified type URINALYSIS AUTO DIP Routine 04/04/[address] ABD+PEL KIDNEY STONE STAT 03/26/2024 9:47 AM SUGAR SAMPLER URINE BACTERIA CULTURE STAT 9:41 AM SUGAR SAMPLER CK (CPK) STAT 03/26/2024 9:37 AM SUGAR SAMPLER COMPREHENSIVE METABOLIC PANEL STAT 03/26/2024 9:37 AM SUGAR SAMPLER CBC W/DIFF AUTOMATED STAT 03/26/2024 9:37 AM SUGAR SAMPLER HC URINALYSIS AUTO W/O MICRO STAT 03/26/2024 8:04 AM SUGAR SAMPLER LIPID PANEL Routine 04/05/2023 8:24 AM SUGAR SAMPLER Primary hypertension Screening for lipid disorders Screening for endocrine, metabolic and immunity disorder Annual physical exam HEPATITIS C ANTIBODY Routine 04/05/2023 8:24 AM SUGAR SAMPLER Primary hypertension Screening for lipid disorders Screening for endocrine, metabolic and immunity disorder Annual physical exam Need for hepatitis C screening test MG DIAG W WILMER BILAT DIGI Routine 09/09/2020 12:14 PM CDT Breast lump on left side at 10 o'clock position from Last 3 Months or Most Recently Relevant to Health Maintenance Results * (ABNORMAL) MG/PCCL UDS W CONF (05/03/2024 9:46 AM SUGAR SAMPLER) RESULT SUMMARY [facility] Comment: ?Prescribed ?Prescribed ?Not Prescribed ?Consistent ?Inconsistent ?Inconsistent ?Hydrocodone ? Marijuana Metabolite ?Xanax(TM) ? PRESCRIBED DRUG 1 (U) Xanax(TM) [address] [facility] PRESCRIBED DRUG 2 (U) Hydrocodone [facility] FENTANYL SCREEN (U) NEGATIVE <0.5 ng/mL [facility] [place] MORPHINE (U) NEGATIVE <10 ng/mL [facility] [place] DESMETHYLTRAMADOL (U) NEGATIVE <100 ng/mL [facility] [place] TRAMADOL (U) NEGATIVE <100 ng/mL [facility] [place] TRAMADOL COMMENTS [facility] Comment:See LDT Notes AMPHETAMINES PM NEGATIVE <500 ng/mL [facility] [place] BARBITURATES PM (U) NEGATIVE <300 ng/mL [facility] BENZODIAZEPINES PM (U) POSITIVE(A) <100 ng/mL [facility] [place] ALPHAHYDROXYALPRAZOLAM PM (U) 518(H) <25 ng/mL [facility] [place] ALPHAHYDROXYALPRAZOLAM PM MEDMATCH (U) CONSISTENT [facility] [place] MIDAZOLAM PM (U) NEGATIVE <50 ng/mL [facility] [place] ALPHAHYDROXYTRIAZOLAM PM (U) NEGATIVE <50 ng/mL [facility] [place] AMINOCLONAZEPAM PM (U) INTERFERENCE( A) <25 ng/mL [facility] Comment: See Note A See Note A OH ET FLURAZEPAM PM (U) NEGATIVE <50 ng/mL [facility] [place] LORAZEPAM PM (U) NEGATIVE <50 ng/mL [facility] [place] NORDIAZEPAM PM (U) NEGATIVE <50 ng/mL [facility] [place] OXAZEPAM PM (U) NEGATIVE <50 ng/mL [facility] [place] TEMAZEPAM PM NEGATIVE <50 ng/mL [facility] [place] BENZODIAZEPINES COMMENTS [facility] [place] Comment:See Benzodiazepines Notes, LDT Notes COCAINE METABOLITE PM (U) NEGATIVE <150 ng/mL [facility] [place] MARIJUANA METABOLITE PM (U) POSITIVE(A) <20 ng/mL [facility] [place] [place] METABOLITE PM CONF (U) 221(H) <5 ng/mL [facility] [place] METAB PM MM CONF (U) INCONSISTENT( A) [facility] MARIJUANA COMMENTS [facility] Comment:See Marijuana Notes, LDT Notes METHADONE PM (U) NEGATIVE <100 ng/mL [facility] LITHONIA OPIATES PM (U) POSITIVE(A) <100 ng/mL [facility] CODEINE PM (U) NEGATIVE <50 ng/mL [facility] [place] HYDROCODONE PM (U) 1,518(H) <50 ng/mL [facility] [place] HYDROCODONE PM MEDMATCH (U) CONSISTENT [facility] [place] HYDROMORPHONE PM (U) 391(H) <50 ng/mL [facility] [place] HYDROMORPHONE PM MEDMATCH CONSISTENT [facility] [place] MORPHINE PM (U) NEGATIVE <50 ng/mL [facility] NORHYDROCODONE PM (U) 4,279(H) <50 ng/mL [facility] [place] NORHYDROCODONE PM MM (U) CONSISTENT [facility] OPIATES COMMENTS [facility] Comment:See Opiates Notes, L DT Notes OXYCODONE PM (U) NEGATIVE <100 ng/mL [facility] [place] CREATININE RANDOM (U) 136.4 > or = 20.0 mg/dL [facility] pH PM (U) 7.5 4.5 - 9.0 [facility] [place] OXIDANT NEGATIVE <200 mcg/mL [facility] NOTE [facility] Comment: This drug testing is for medical treatment only. Analysis was performed as non-forensic testing and these results should be used only by healthcare providers to render diagnosis or treatment, or to monitor progress of medical conditions. Note A: The above test was performed; however, analysis of this sample indicates a drug/chemical interference with the assay. We are unable to report a quantitative value. Benzodiazepines Notes: aOH Alprazolam detected is consistent with the use of the drug Alprazolam. Marijuana Notes: Marijuana Metabolite detected is consistent with exposure to Marijuana (THC) and/or hemp derived products. ?? Some jurisdictions do not include hemp within the definition of Marijuana. Opiates Notes: Hydrocodone, Norhydrocodone, Hydromorphone detected is consistent with the use of the drug Hydrocodone. Hydromorphone detected is consistent with the use of the drug Hydromorphone. Hydromorphone can be a prescribed drug and is also a metabolite of Hydrocodone. LDT Notes: Confirmation tests were developed and their analytical performance characteristics have been determined by [facility]. It has not been cleared or approved by the FDA. This assay has been validated pursuant to the CLIA regulations and is used for clinical purposes. medMATCH(R) enables providers to identify if drug use is consistent or inconsistent with a corresponding prescribed medication(s) list. Healthcare Providers needing Interpretation assistance, please contact us at [phone] ( ) M-F, 8am to 10pm EST URINE SPECIMEN / Unknown 05/03/2024 9:46 AM SUGAR SAMPLER 05/04/2024 10:38 PM SUGAR SAMPLER Narrative Resulting Agency Comment Performing Organization Information: ?Site ID: ?Name: [facility] ?Address: [address] [place] [phone] ?Director: Shon Moe ?Site ID: [id number] ?Name: [facility] ?Address: [address] [place] [address] ?Director: Suman Paiz MD us Starla Arshad DO URINE ORDERABLES Final R esult [facility] - DIMPLE ORDERS [facility] [place] [id number] [facility] [place] [address], [facility] [place] [facility] [address] [place] [address] * URINE BACTERIA CULTURE (04/04/2024 10:08 AM SUGAR SAMPLER) Only the most recent of2 resultswithin the time period is included. SPEC DESCRIPTION URINE CLEAN CATCH 04/04/2024 10:09 AM SUGAR SAMPLER [facility] SPECIAL REQUESTS NO SPECIAL REQUEST 04/04/2024 10:09 AM SUGAR SAMPLER [facility] CULTURE RESULT >25,000 TO 50,000 CFU/mL ESCHERICHIA COLI 04/06/2024 11:28 AM SUGAR SAMPLER [facility] URINE SPECIMEN OBTAINED BY CLEAN CATCH PROCEDURE / Unknown 04/04/2024 10:08 AM SUGAR SAMPLER 04/04/2024 5:30 PM SUGAR SAMPLER Narrative Organism Antibiotic Method Susceptibility Escherichia coli AMPICILLIN ESVIN (VITEK) Sensitive Escherichia coli AMOXICILLIN/CLAVULANIC A ESVIN (VITEK) Sensitive Escherichia coli AZTREONAM ESVIN (VITEK) Sensitive Escherichia coli CEFEPIME ESVIN (VITEK) Sensitive Escherichia coli CEFTRIAXONE ESVIN (VITEK) Sensitive Escherichia coli CEFAZOLIN ESVIN (VITEK) Sensitive Escherichia coli CIPROFLOXACIN ESVIN (VITEK) Sensitive Escherichia coli ESBL ESVIN (VITEK) NEG: Sensitive Escherichia coli ERTAPENEM ESVIN (VITEK) Sensitive Escherichia coli NITROFURANTOIN ESVIN (VITEK) Sensitive Escherichia coli GENTAMICIN ESVIN (VITEK) Sensitive Escherichia coli IMIPENEM ESVIN (VITEK) Sensitive Escherichia coli LEVOFLOXACIN ESVIN (VITEK) Sensitive Escherichia coli MEROPENEM ESVIN (VITEK) Sensitive Escherichia coli PIPRACIL/TAZO ESVIN (VITEK) Sensitive Escherichia coli TRIMETH-SULFAMETH. ESVIN (VITEK) Sensitive Escherichia coli TETRACYCLINE ESVIN (VITEK) Sensitive us Starla Arshad DO MICROBIOLOGY - GENERAL O RDERABLES Final Result [facility] [address] [place] [address], [id number] * (ABNORMAL) URINALYSIS MICRO ONLY (04/04/2024 10:08 AM SUGAR SAMPLER) RBC/HPF PACKED(A) 0 - 3 /HPF 04/04/2024 3:07 PM SUGAR SAMPLER [facility] WBC/HPF 0-3 0 - 3 /HPF 04/04/2024 3:07 PM SUGAR SAMPLER [facility] EPI/HPF 0-3 /HPF 04/04/2024 3:07 PM SUGAR SAMPLER [facility] BACTERIA (U) TRACE(A) NONE SEEN 04/04/2024 3:07 PM SUGAR SAMPLER [facility] URINE SPECIMEN OBTAINED BY CLEAN CATCH PROCEDURE / Unknown 04/04/2024 10:08 AM SUGAR SAMPLER Starla Arshad DO URINE ORDERABLES Final R esult [facility] [address] [place] [address], * (ABNORMAL) URINALYSIS AUTO DIP (04/04/2024) COLOR (U) RED(A) YELLOW [facility] TRANSPARENCY CLOUDY(A) CLEAR [facility] GLUCOSE (U) NEGATIVE NEGATIVE MG/DL [facility] BILIRUBIN (U) 1+ (SMALL)(A) NEGATIVE [facility] KETONES MG/DL (U) NEGATIVE NEGATIVE MG/DL [facility] SPECIFIC GRAVITY (U) 1.020 1.001 - 1.035 [facility] BLOOD (U) LARGE (3+ Hemolyzed, About 250 rbc/uL)(A) NEGATIVE [facility] U PH 6.5 5.0 - 9.0 [facility] PROTEIN (U) 2+ (100)(A) NEGATIVE mg/dL [facility] UROBILINOGEN 0.2 0.2 - 1.0 EU/dL = mg/dL [facility] NITRITES NEGATIVE NEGATIVE MG/DL [facility] LEUKOCYTES (U) NEGATIVE NEGATIVE MG-SO [facility] URINE SPECIMEN OBTAINED BY CLEAN CATCH PROCEDURE / Unknown 04/04/2024 Starla Litray DO URINE ORDERABLES Final R esult [facility] [address] [place] [address], [place] * CT ABD+PEL KIDNEY STONE (03/26/2024 9:47 AM SUGAR SAMPLER) Anatomical Region Laterality Modality Abdomen Computed Tomogra phy 03/26/2024 9:50 AM SUGAR SAMPLER Impressions 03/26/2024 10:19 AM SUGAR SAMPLER IMPRESSION: 1. Bilateral renal tiny nonobstructing nephrolithiasis without collecting system obstruction. No ureteral or bladder stones seen. 2. Stable now, deep intrapelvic position of the cecum; no convincing acute other significant gastrointestinal tract finding within noncontrast study limits. 3. No acute other significant localizing abdominal pelvic process, findings seen to provide a potential explanation for the patient's symptoms 4. Other nonemergent, incidental, stable and potential chronic findings as discussed in the report body above. Ordered By: VIN VEGAS Interpreted By: Lisa Edwards MD, 03/26/2024 9:50 AM Narrative 03/26/2024 10:19 AM SUGAR SAMPLER [facility] [address] [place], [place] [address] Exam: CT abdomen and pelvis without contrast Exam Date/Time: 03/26/2024 9:43 AM Indication: ??68 female. Evaluation for renal stones. Hematuria. Reported dark urine for 3 weeks be ?? Comparison: CT abdomen pelvis 05/31/2023 Technique: Computed tomography of the abdomen and pelvis was performed without contrast. A dose lowering technique was used for this procedure, which may include, but is not limited to, dose reduction technique, automated exposure control, the use of iterative reconstruction, and ALARA (As Low As Reasonably Achievable) / Image Gently techniques. CT findings: LOWER CHEST Normal cardiac size. No pericardial or pleural effusion. Bibasilar suspected early fibrosis with subpleural reticular and interstitial thickenings and subtle bronchiolectasis. No acute. Limited noncontrast assessment of the soft tissues of viscera. 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 Otherwise unremarkable noncontrast appearance with a overall normal contour. No focal noncontrast finding. No abnormal intra or extrahepatic biliary tree dilatation Gallbladder: Cholecystectomy Pancreas: Mild volume loss otherwise unremarkable. Spleen: Unenhanced spleen is unremarkable RETROPERITONEUM Adrenals: Bilateral adrenal limb thickening, possible adenomatous. Kidneys: Bilateral small nonobstructing calculi. Right renal solitary upper pole 2 mm nonobstructing stone identified. Approximately 2 3 suspected 2-3 mm left renal nonobstructing stones. No ureteral or bladder stones identified There is patchy bilateral renal artery calcification particularly at the ester. Otherwise unremarkable noncontrast appearance. Normal size and contour of both kidneys. No concerning focal noncontrast lesion, collecting system obstruction or perinephric stranding. Lymph nodes: No abdominal mesenteric, retroperitoneal or pelvic adenopathy. BOWEL AND PERITONEUM Bowel: Normal in caliber and wall thickness. Prominent low-lying cecum be identified with in the pelvis. Ileocecal valve there is left of midline. Definite appendix not seen. No regional or inflammation. No other convincing acute or significant gastrointestinal tract finding within study limits. Free air or fluid: None. VASCULATURE Prominent aortoiliac catheter is chronic calcification. Distal aortic narrowing. Bilateral common iliac diffuse narrowing. Limited noncontrast non-CTA assessment. No abdominal aortic aneurysm PELVIS: Status post hysterectomy. Adnexa are within normal limits. Partially distended unremarkable thin-walled urinary bladder. Few scattered tiny pelvic phlebolithic calcifications. BONES/SOFT TISSUES Heterogeneous bony demineralization. Multilevel degenerative spondylosis. Grade 1, 7 mm L4-5 degenerative spondylolisthesis. L5-S1 advanced disc and endplate degeneration. No concerning focal lytic or blastic lesion identified. Procedure Note Lisa Edwards MD - 03/26/2024 [address] [place], [place] [address] Exam: CT abdomen and pelvis without contrast Exam Date/Time: 03/26/2024 9:43 AM Indication: 68 female. Evaluation for renal stones. Hematuria. Reporteddark urine for 3 weeks be Comparison: CT abdomen pelvis 05/31/2023 Technique: Computed tomography of the abdomen and pelvis was performedwithout contrast. A dose lowering technique was used for this procedure,which may include, but is not limited to, dose reduction technique,automated exposure control, the use of iterative reconstruction, and ALARA(As Low As Reasonably Achievable) / Image Gently techniques. CT findings: LOWER CHEST Normal cardiac size. No pericardial or pleural effusion. Bibasilarsuspected early fibrosis with subpleural reticular and interstitialthickenings and subtle bronchiolectasis. No acute. Limited noncontrast assessment of the soft tissues of viscera. UPPER ABDOMEN Liver and bile ducts: Elongated right inferior hepatic lobe thought torepresent a Lopez's lobe. Otherwise unremarkable noncontrast appearancewith a overall normal contour. No focal noncontrast finding. No abnormalintra or extrahepatic biliary tree dilatation Gallbladder: Cholecystectomy Pancreas: Mild volume loss otherwise unremarkable. Spleen: Unenhanced spleen is unremarkable RETROPERITONEUM Adrenals: Bilateral adrenal limb thickening, possible adenomatous. Kidneys: Bilateral small nonobstructing calculi. Right renal solitary upper pole 2 mm nonobstructing stone identified.Approximately 2 3 suspected 2-3 mm left renal nonobstructing stones. Noureteral or bladder stones identified There is patchy bilateral renalartery calcification particularly at the ester. Otherwise unremarkablenoncontrast appearance. Normal size and contour of both kidneys. Noconcerning focal noncontrast lesion, collecting system obstruction orperinephric stranding. Lymph nodes: No abdominal mesenteric, retroperitoneal or pelvicadenopathy. BOWEL AND PERITONEUM Bowel: Normal in caliber and wall thickness. Prominent low-lying cecum beidentified with in the pelvis. Ileocecal valve there is left of midline.Definite appendix not seen. No regional or inflammation. No other convincing acute or significant gastrointestinal tract findingwithin study limits. Free air or fluid: None. VASCULATURE Prominent aortoiliac catheter is chronic calcification. Distal aorticnarrowing. Bilateral common iliac diffuse narrowing. Limited noncontrastnon-CTA assessment. No abdominal aortic aneurysm PELVIS: Status post hysterectomy. Adnexa are within normal limits. Partiallydistended unremarkable thin-walled urinary bladder. Few scattered tinypelvic phlebolithic calcifications. BONES/SOFT TISSUES Heterogeneous bony demineralization. Multilevel degenerative spondylosis.Grade 1, 7 mm L4-5 degenerative spondylolisthesis. L5-S1 advanced disc and endplate degeneration. No concerning focal lyticor blastic lesion identified. IMPRESSION: 1. Bilateral renal tiny nonobstructing nephrolithiasis without collectingsystem obstruction. No ureteral or bladder stones seen. 2. Stable now, deep intrapelvic position of the cecum; no convincing acuteother significant gastrointestinal tract finding within noncontrast studylimits. 3. No acute other significant localizing abdominal pelvic process,findings seen to provide a potential explanation for the patient'ssymptoms 4. Other nonemergent, incidental, stable and potential chronic findings asdiscussed in the report body above. Ordered By: VIN VEGAS Interpreted By: Lisa Edwards MD, 03/26/2024 9:50 AM us Vin Vegas MAJOR ACCOUNT MANAGER CT Final Result * (ABNORMAL) COMPREHENSIVE METABOLIC PANEL (03/26/2024 9:37 AM SUGAR SAMPLER) GLUCOSE 118(H) 70 - 99 MG/DL 03/26/2024 10:35 AM [facility] BUN 17 7 - 18 MG/DL 03/26/2024 10:35 AM [facility] CREATININE S/P/B 0.73 0.55 - 1.02 MG/DL 03/26/2024 10:35 AM [facility] SODIUM S/P/B 139 136 - 145 MMOL/L 03/26/2024 10:35 AM [facility] POTASSIUM S/P/B 3.7 3.5 - 5.1 MMOL/L 03/26/2024 10:35 AM [facility] CHLORIDE S/P/B 106 97 - 115 MMOL/L 03/26/2024 10:35 AM [facility] CO2 31.1 21 - 32 MMOL/L 03/26/2024 10:35 AM [facility] CALCIUM S/P/B 9.5 8.5 - 10.1 MG/DL 03/26/2024 10:35 AM [facility] BILIRUBIN TOTAL S/P/B 0.4 0.2 - 1.2 MG/DL 03/26/2024 10:35 AM [facility] Comment: THIS ASSAY IS NOT RECOMMENDED FOR PATIENTS UNDERGOING TREATMENT WITH ELTROMBOPAG DUE TO THE POTENTIAL FOR FALSELY ELEVATED RESULTS. TOTAL PROTEIN S/P/B 7.8 6.4 - 8.2 G/DL 03/26/2024 10:35 AM [facility] ALBUMIN S/P/B 3.9 3.4 - 5.0 G/DL 03/26/2024 10:35 AM [facility] AST 21 15 - 37 U/L 03/26/2024 10:35 AM [facility] ALT 24 14 - 55 U/L 03/26/2024 10:35 AM [facility] ALKALINE PHOSPHATASE S/P/B 72 50 - 136 U/L 03/26/2024 10:35 AM [facility] ANION GAP 1.9(L) 2 - 10 MMOL/L 03/26/2024 10:35 AM [facility] BUN CREATININE RATIO 23.2 6 - 26 03/26/2024 10:35 AM [facility] A/G RATIO 1.0 1.0 - 2.0 RATIO 03/26/2024 10:35 AM [facility] GFR ESTIMATE >90 >90 ML/MIN/1.7 3 M2 03/26/2024 10:35 AM [facility] Comment: NOTE: eGFR is not calculated for patients <18 years of age or gender unknown. This is an estimated GFR calculation using the new CKD EPI creatinine equation without race and so does not require a correction factor for race. This estimated GFR should not be used for calculating drug doses. 03/26/2024 9:37 AM SUGAR SAMPLER Vin Vegas NP LABORATORY Final Result [facility] [address] [place] [address], [place] [phone] * (ABNORMAL) CBC W/DIFF AUTOMATED (03/26/2024 9:37 AM SUGAR SAMPLER) WBC 7.77 4.5 - 11.0 x10'3/uL 03/26/2024 10:06 AM [facility] RBC 4.33 4.20 - 5.40 x10'6/uL 03/26/2024 10:06 AM [facility] HGB 14.0 12.0 - 16.0 G/DL 03/26/2024 10:06 AM [facility] HCT 40.6 38.0 - 48.0 % 03/26/2024 10:06 AM [facility] MCV 93.8 81.0 - 99.0 FL 03/26/2024 10:06 AM [facility] MCH 32.3(H) 27.0 - 31.0 PG 03/26/2024 10:06 AM [facility] MCHC 34.5 32.0 - 36.0 G/DL 03/26/2024 10:06 AM [facility] RDW 12.9 11.5 - 14.5 % 03/26/2024 10:06 AM [facility] PLT 283 130 - 400 x10'3/uL 03/26/2024 10:06 AM [facility] MPV 9.0(L) 9.3 - 12.2 FL 03/26/2024 10:06 AM [facility] DIFFERENTIAL TYPE AUTOMATED DIFFERENTIAL 03/26/2024 10:06 AM [facility] NEUTROPHILS % 53.6 % 03/26/2024 10:06 AM [facility] LYMPHOCYTES % 30.2 % 03/26/2024 10:06 AM [facility] MONOCYTES % 8.8 % 03/26/2024 10:06 AM [facility] EOSINOPHILS 6.3 % 03/26/2024 10:06 AM [facility] BASOPHILS 0.8 % 03/26/2024 10:06 AM [facility] IMMATURE GRANS % 0.3 % 03/26/20 10:06 AM [facility] ABS. NEUTROPHILS 4.17 1.80 - 7.70 x10'3/uL 03/26/2024 10:06 AM [facility] ABS. LYMPHOCYTES 2.35 1.00 - 4.80 x10'3/uL 03/26/2024 10:06 AM [facility] ABS. MONOCYTES 0.68 0.24 - 0.86 x10'3/uL 03/26/2024 10:06 AM [facility] ABS. EOSINOPHILS 0.49(H) 0.04 - 0.36 x10'3/uL 03/26/2024 10:06 AM [facility] ABS. BASOPHILS 0.06 0.01 - 0.08 x10'3/uL 03/26/2024 10:06 AM [facility] ABS. IMMATURE GRANULOCYTES 0.02 0.00 - 0.49 x10'3/uL 03/26/2024 10:06 AM SUGAR SAMPLER [facility] 03/26/2024 9:37 AM SUGAR SAMPLER us Vin Breen Nathaniel MONROY LABORATORY Final Result Performing Organization Address City/[facility]/ZIP Co de Phone Number [facility] [address] [place] [address], * CK (CPK) (03/26/2024 9:37 AM SUGAR SAMPLER) CPK 84 21 - 215 U/L 03/26/2024 11:39 AM SUGAR SAMPLER [facility] 03/26/2024 9:37 AM SUGAR SAMPLER Vin Vegas MAJOR ACCOUNT MANAGER LABORATORY Final Result Performing Organization Address [facility] Co de Phone Number [facility] [address] [place] [address], [place] [phone] * (ABNORMAL) URINALYSIS (03/26/2024 8:04 AM SUGAR SAMPLER) SPECIMEN TYPE URINE CLEAN CATCH 03/26/2024 8:10 AM SUGAR SAMPLER [facility] COLOR (U) ORANGE 03/26/2024 8:28 AM SUGAR SAMPLER [facility] TRANSPARENCY EXTREMELY TURBID 03/26/2024 8:28 AM SUGAR SAMPLER [facility] SPECIFIC GRAVITY (U) 1.022 1.001 - 1.030 03/26/2024 8:28 AM SUGAR SAMPLER [facility] U PH 5.5 5.0 - 9.0 03/26/2024 8:28 AM [facility] LEUKOCYTES (U) 25(A) NEGATIVE 03/26/2024 8:28 AM [facility] NITRITES NEGATIVE NEGATIVE 03/26/2024 8:28 AM [facility] PROTEIN RANDOM (U) 70(H) <30 MG/DL 03/26/2024 8:28 AM [facility] GLUCOSE (U) NORMAL NORMAL MG/DL 03/26/2024 8:28 AM [facility] KETONES MG/DL (U) NEGATIVE NEGATIVE MG/DL 03/26/2024 8:28 AM [facility] UROBILINOGEN NORMAL NORMAL MG/DL 03/26/2024 8:28 AM [facility] BILIRUBIN (U) NEGATIVE NEGATIVE MG/DL 03/26/2024 8:28 AM [facility] BLOOD (U) 3+(A) NEGATIVE 03/26/2024 8:28 AM [facility] MUCUS MODERATE /LPF 03/26/2024 8:28 AM [facility] WBC/HPF 2 <6 /HPF 03/26/2024 8:28 AM [facility] RBC/HPF >100(H) <6 /HPF 03/26/2024 8:28 AM [facility] BUDDING YEAST FEW(A) NONE /HPF 03/26/2024 8:28 AM SUGAR SAMPLER [facility] SQUAMOUS EPITHELIALS FEW /HPF 03/26/2024 8:28 AM [facility] URINE SPECIMEN OBTAINED BY CLEAN CATCH PROCEDURE / Unknown 03/26/2024 8:04 AM SUGAR SAMPLER us Vin Vegas MAJOR ACCOUNT MANAGER URINE ORDERABLES Final Result [facility] [address] [place] [address], * (ABNORMAL) LIPID PANEL (04/05/2023 8:24 AM SUGAR SAMPLER) CHOLESTEROL 135 <200 MG/DL 04/05/2023 4:46 PM SUGAR SAMPLER [facility] TRIGLYCERIDES 127 <150 MG/DL 04/05/2023 4:46 PM SUGAR SAMPLER [facility] HDL 37(L) >40 MG/DL 04/05/2023 4:46 PM SUGAR SAMPLER [facility] LDL-C 73 <100 MG/DL 04/05/2023 4:46 PM SUGAR SAMPLER [facility] VLDL CALCULATION 25 5 - 28 MG/DL 04/05/2023 4:46 PM SUGAR SAMPLER [facility] CHOL/HDL RATIO 3.6 0.0 - 4.0 04/05/2023 4:46 PM SUGAR SAMPLER [facility] LDL/HDL 2.0 0.41 - 2.13 04/05/2023 4:46 PM SUGAR SAMPLER [facility] NON HDL CHOLESTEROL 98 <140 MG/DL 04/05/2023 4:46 PM SUGAR SAMPLER [facility] 04/05/2023 8:24 AM SUGAR SAMPLER Starla Arshad DO LABORATORY Final Re sult [facility] [address] [place] [address], [place] [phone] * HEPATITIS C ANTIBODY (04/05/2023 8:24 AM SUGAR SAMPLER) HEPATITIS C AB NON-REACTI VE NON-REACT RAUL 04/05/2023 6:53 PM SUGAR SAMPLER [facility] Comment: ANTIBODIES TO HCV NOT DETECTED. DOES NOT EXCLUDE THE POSSIBILITY OF EXPOSURE TO HCV. 04/05/2023 8:24 AM SUGAR SAMPLER Starla Arshad DO LABORATORY Final Re sult [facility] [address] [place] [address], [phone] * MG MILEY RAI (09/09/2020 12:14 PM CDT) Anatomical Region Laterality Modality Breast Bilateral Mammography 09/09/2020 12:5 2 PM CDT Impressions 09/09/2020 12:56 PM CDT IMPRESSION: 1. Moderately dense breasts with no mammographically suspicious change since the previous exams. 2. No sonographically discrete or suspicious abnormality identified within the region of interest on the left. 3. Follow-up as described. Recommendation: 1: Routine screening mammogram ??Bilateral ?? in 1 Year Overall assessment: ACR BI-RADS Category 2 - Benign. Return for Routine Follow-Up: Yes Referred By: STARLA ARSHAD Interpreted By: Nathaniel De Guzman MD, 09/09/2020 12:52 PM Narrative 09/09/2020 12:56 PM CDT Examination: Bilateral digital diagnostic mammogram with CAD. [id number] Clinical history: Left breast lump and tenderness. Routine screening on the right. Comparison: 10/03/2014, 03/30/2011, 11/09/2010, 11/22/2007. Technique: Bilateral digital mammograms including spot compression imaging on the left. The exam was interpreted with the use of a computer-aided detection (CAD) system. Additional 3-D Tomosynthesis images were acquired. Tissue density: ??The breast tissue is heterogeneously dense. Findings: ?There has been no suspicious change. The breasts again demonstrate mixed fat and moderately dense fibroglandular tissue. Benign-appearing calcification noted. Benign-appearing intramammary lymph nodes on the left again evident. No suspicious mass, microcalcification or area of architectural distortion can be identified. A marker was placed on the left side at the indicated site of concern, lying near the 11:00 position projecting approximately 13 cm deep to the nipple on the MLO view. No discrete underlying mammographic abnormality at this site is identified, including under spot compression. Examination: Left breast ultrasound. Technique: Grayscale images. Findings: Evaluation at the indicated site of concern in the upper inner quadrant fails to demonstrate any discrete solid or cystic mass. [place] appearing tissue architecture is demonstrated. Physical exam surveillance is advised with any further evaluation at this point guided on that basis. From a mammographic standpoint, routine follow-up in one year would seem adequate. These findings were discussed with the patient. Starla Arshad DO MAMMO Final Re sult from Last 3 Months or Most Recently Relevant to Health Maintenance Insurance [facility] MEDICAID Advance Directives * Full Code (Latest Code Status on File) Date Activated Date Inactivated Comments 09/22/2020 12:40 PM 09/23/2020 12:52 PM Care Teams Equipment Oiler Relationship Specialty Start Date End Date Starla Arshad DO [address] [place] [id number] PCP - General FAMILY PRACTICE 08/19/20
--- OUTSIDE RECORDS SUMMARY | 2024-05-16 13:26 | XMS_ITS | Clinical Summary ---
Author Organization [facility] Address [facility] access hospital[address] [place] [address] Care Team Providers Care Hand Patcher Name Role Phone Jimmy Doyle Primary Care Provide r Derrell Varma MD Unavailable [phone] Allergies Active Allergy Reactions Criticality Noted Date [...] 12/02/2011 Right upper quadrant abdominal pain 12/02/2011 Surgical History Surgery Date Site/Laterality Comments HYSTERECTOMY Medical History Medical History Date Comments Nausea with vomiting Nausea with vomiting - (Added by TW Conv) Flatulence Flatus - (Added by TW Conv) Right upper quadrant pain Abdomi nal pain, RUQ (right upper quadrant) - (Added by TW Conv) Abdominal distension (gaseous) B loating - (Added by TW Conv) Constipation Constipation - ( Added by TW Conv) Social History Tobacco Use Types Packs/Day Years [...] on file Legal Sex Female 12:04 PM [employer] Gender Identity Not on file Sexual Orientation Not on file Obstetrics History Last Filed Vital Signs Vital Sign Reading [...] 02/09/2022 2:13 PM CDT Plan of Treatment Health Maintenance Due Date Last Done Comments Breast Cancer Screening-Mammogram 1955 Colon Cancer Screening-Colonoscopy 1955 Depression Screening 1957 Fall Risk Assessment 1955 Hepatitis C Screening 1957 Osteoporosis Screening-Bone Density Scan 1957 DTaP/Tdap/Td Vaccine (1 - Tdap) 1968 Hepatitis B Screening 12/05/1975 Pneumococcal vaccine 65+ (3 of 3 - PPSV23 or PCV20) 2022 01/12/2020, 05/14/2007 Well Visit 65+ 2022 Covid-19 Vaccine (4 - 2023-2 5 season) 2023 01/30/2021, 07/21/2020, 06/30/2020 Influenza Vaccine (#1) 2023 , 12/25/2020, 01/07/2020, Additional history exists Zoster Vaccine Completed 04/06/2021, 01/27/2021 Insurance [employer] MEDICARE [employer] IDPA Advance Directives For more information, please contact: [phone] * Full Code (Latest Code Status on File) Date Activated Date Inactivated Comments 02/09/2022 9:51 PM 02/12/2022 5:52 PM Care Teams Hand Patcher Relationship Specialty Start Date End Date Jimmy Doyle DO [address] [place] [id number] PCP - General Family Medicine 02/12/22 Derrell Varma MD [address] [place] [address] [address] Surgeon Surgery 02/12/22
--- OUTSIDE RECORDS SUMMARY | 2024-05-16 13:26 | XMS_ITS | Encounter Summary ---
Author Organization [facility] Address [address] [place] [address]. [place] [address] [place] [address] Care Team Providers Care Cage Cashier Name Role Phone Jimmy Doyle DO Primary Care Provider + Reason for Visit * Reason Onset Date Comments Advice 05/16/2024 Encounter Details Date Type Department Care Team (Late st Contact Info) Description 05/16/2024 Telephone [facility] Family & Internal Medicine [facility] [address] [place] [address] iJmmy Doyle DO [address] [place] [address] Advice Social History Tobacco Use Types Packs/Day Years Used Date Smoking Tobacco: Every Day Cigarettes 1 54.7 Started: 08/19/1969 Smokeless Tobacco: Never Comments:trying to quit. 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 CTOR OF TRAINING * Mikala Child - 05/16/2024 8:22 AM CST Pt called in stating having dark urine again almost black. Pt asking what she needs to do. Please advise. CTOR OF TRAINING documented in this encounter Plan of Treatment Upcoming Encounters Date Type Department Care Team (Late st Contact Info) Description 08/01/2024 8:20 AM CDT Office Visit [facility] Family & Internal Medicine [facility] [address] [place] [address] Jimmy Doyle DO [address] [place] [address] 08/31/2024 12:00 PM CDT Office Visit [facility] [address] [place] [address] Abhi Aguilar MD [address] [facility] [address] [facility] [place] [address] documented as of this encounter Goals Goal Patient Goal Type Associated Problems Recent Progress Patient-Stated? Author Patient will return to prior living situation and remain independent in ADLs upon discharge from hospital 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 RN documented as of this encounter Visit Diagnoses Not on filedocumented in this encounter Additional Health Concerns Assessment Noted Time PHQ-9 Depression Total Score: 10 025 9:55 AM DIRECTOR OF TRAINING documented as of this encounter Care Teams Cage Cashier Relationship Specialty Start Date End Date Jimmy Doyle DO [address] [place] [id number] PCP - General FAMILY PRACTICE 08/19/20 documented as of this encounter
--- OUTSIDE RECORDS SUMMARY | 2024-05-16 13:26 | XMS_ITS | Encounter Summary ---
Author Organization [facility] Address [address] [place] [address]. [place] [address] [place] [address] Care Team Providers Care Artillery Or Naval Gunfire Observer Name Role Phone Jimmy Doyle DO Primary Care Provider + Encounter Details Date Type Department Care Team (Late st Contact Info) Description 06/23/2022 Prep for Procedure [facility], [facility] [address] [place], [place] [id number] Flaquito Valera MD Three [facility]. [facility] [address] [place] [address] Social History Tobacco Use Types Packs/Day Years Used Date Smoking Tobacco: Every Day Cigarettes 1 54.7 Started: 08/19/1969 Smokeless Tobacco: Never Comments:trying to quit. 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 Never 08/19/2020 Average Number of Drinks Not on file 021 Frequency of Binge Drinking Not on file 07/2020 PHQ-2 Answer Date Recorded Patient Health Questionnaire-2 Score 3 06/24/2022 Comments No Sex and Gender Information Value Date Recorded Sex Assigned at Female 05/03/2024 9:57 AM SAS ANALYST Legal Sex Female 4:45 PM CDT Gender Identity Female 05/03/2024 9:57 AM SAS ANALYST Sexual Orientation Not on file COVID-19 Exposure Response Date Recorded In the last 10 days, have yo u been in contact with someone who was confirmed or suspected to have Coronavirus/COVID-19? No / Unsure 06/24/2022 12:41 PM SAS ANALYST documented as of this encounter Functional Status [...] Description 08/01/2024 8:20 AM CDT Office Visit [facility] Family [facility] Internal Medicine - [address] [phone] Jimmy Doyle, [address] [place] [id number] 08/31/2024 12:00 PM CDT Office Visit [facility] [address] [place] [phone] Abhi Aguilar MD 3 [facility] [address] [place] [phone] documented as of this encounter Goals Goal Patient Goal Type Associated Problems Recent Progress Patient-Stated? Author Patient will return to prior living situation and remain independent in ADLs upon discharge from hospital General Daysi Nayak RN documented as of this encounter Visit Diagnoses Not on filedocumented in this encounter Additional Health Concerns Infection Onset Date Last Indicated Resolved Time COVID-19 Rule Out 01/27/2023 01/27/2023 01/27/2023 11:28 AM CDT Assessment Noted Time PHQ-9 Depression Total Score: 8 05/13/19 22 10:36 AM SAS ANALYST documented as of this encounter Care Teams Artillery Or Naval Gunfire Observer Relationship Specialty Start Date End Date Jimmy Doyle DO [address] [place] [phone] PCP - General FAMILY PRACTICE 08/19/20 documented as of this encounter
[2024-05-16 13:38] LABS: Influenza A QL RT-PCR Negative (Negative); Influenza B QL RT-PCR Negative (Negative); RSV RNA, RT-PCR Negative (Negative); SARS-CoV-2 RNA PCR Negative (Negative)
== END 2024-05-16 15:51 | disposition home or self-care (01) ==
PROVIDERS: Emergency Medicine; Emergency Provider Emergency Medicine; PCP Student in an Organized Health Care Education/Training Program
DX: R31.9 Hematuria, unspecified (principal); R11.2 Nausea with vomiting, unspecified; Z20.822 Contact with and (suspected) exposure to COVID-19; J43.9 Emphysema, unspecified; N28.9 Disorder of kidney and ureter, unspecified; E78.00 Pure hypercholesterolemia, unspecified; F32.A Depression, unspecified; F41.9 Anxiety disorder, unspecified; F17.210 Nicotine dependence, cigarettes, uncomplicated; Z87.442 Personal history of urinary calculi; Z87.01 Personal history of pneumonia (recurrent); Z90.49 Acquired absence of other specified parts of digestive tract; Z90.711 Acquired absence of uterus with remaining cervical stump; Z79.82 Long term (current) use of aspirin; Z79.899 Other long term (current) drug therapy
CPT/HCPCS: 36415; 71045; 74177; 80053; 81001; 83605; 85025; 87086; 87637; 96361; 96374; 99284; J7030; Q9967

== ENCOUNTER 2024-06-03 12:02 | Emergency (ER) | payer MEDICARE, MEDICAID, SELFPAY ==
--- OUTSIDE RECORDS SUMMARY | 2024-06-03 12:05 | XMS_ITS | Data Portability ---
Author Organization [facility] OFFICE Address [address] [place] [address] Care Team Providers Care Lining Repairer Name Role Phone JESUS MACEDO Primary Care Provider JESUS MACEDO Referring Provider [phone] Assessment No assessment recorded. Plan of Treatment [...] By Organization Details Last Modified Time 04/30/2020 69553 Exercise advised Low cholesterol diet advised Low sodium diet advised [email or web address] Not available 04/30/2020 16:38:42 Scribed by Kamila Michele [facility] [email or web address] Not available 04/30/2020 16:38:44 Reason for [...] bibasiller atelectasis or infection,clinical correlation. Efra [facility] 05/03/2020 10:01:32 D-dimer Feu, Qn, Ia, Blood : D-dimer 04/01/20:0.37 Efra [facility] 05/03/2020 09:54:26 Cbc W/ Diff : 04/01/20:WBC 7.6,RBC 4.68,HGB 14.8,HCT 41.8,PLT 251. Efra [facility] 05/03/2020 09:50:44 Cmp, Serum Or Plasma : 04/02/20:Na 139,K 3.4,Cl 102,CO2 32,GLU 99,BUN 11,Cr 0.6,Mg 2.1 [facility] 05/03/2020 09:54:26 Lipid Panel, Blood : 04/02/20: TC 167,TG 220,LDL 107,HDL 30. Efra [facility] 05/03/2020 09:54:26 Problems Name Problem SNOMED Code Status Onset Date Resolution Date Notes Provider Name and Address Organization Details Recorded Time Essential hypertension 12718106 Active 2020 [facility] 15:22:30 Cerebrovascula r accident 033362477 Active 2020 [facility] 15:22:39 Hypercholester olemia 26489536 Active 2020 [facility] 15:22:56 Depressive disorder 56630915 Active 2020 [facility] 15:23:04 Problem Notes None recorded. Procedures Surgical History Date Name Laterality Status Provider Name and Address Organization Details Recorded Time Hysterectomy completed [facility] 04/30/2020 15:24:35 Cholecystectomy completed [facility] 04/30/2020 15:24:43 Imaging Results Imaging Date Name [...] Name and Address Organization Details Recorded Time 60594 sulfobrom ophthalei n sodium medicatio n Not available Not available Not available 04/30/202022576 0 RxNorm Renae [facility] [place] [facility] 15:21:51 47027 tetracycl ine medicatio n Not available Not available Not available 04/30/2020 30556 RxNorm Renae [facility], [place] - [facility] 15:22:03 Medications Name [...] Available Not Available Not Available Fluzone Quad [id number] (PF) 60 mcg (15 mcg x 4)/0.5 [...] Last Updated DateTime 165.1 cm 28.3 kg/m2 05463.7 g 84 /min 18 /min 94 % 94 % 97.2 [degF] 170 mm[Hg] 100 mm[Hg] Renae Pineda [facility] 15:31:15 Social History Question Answer Notes LastModified by Organizat ion Details LastModified Time Tobacco Smoking Status Current Every Day Smoker Renae wright [facility] 04/30/2020 15:23:42 Do You Have An Advance Directive? No [facility] Information not available 04/30/2020 What Is Your Level Of Alcohol Consumption? Occasional [facility] Information not available 04/30/2020 What Is Your Level Of Caffeine Consumption? None [facility] Information not available 04/30/2020 How Much Tobacco Do You Chew? None [facility] Information not available 04/30/2020 What Type Of [...] Father No current problems or disability Stroke [facility] Not available 04/18 15:23:31 Mother No current problems or disability Heart Diseas e Not available 04/30/2020 15:23:38 Medical History Condition Response High Cholesterol Y Hyperlipidemia Y Hypertension Y Gynecological HistoryNo gynecological history recorded. Obstetrics History GPAL:G 0 P 0 0 0 0 Past Encounters Encounter ID Performer Location Encounter Start Date Encounter Closed Date Diagnosis/Indication Diagnosis SNOMED-CT Code Diagnosis ICD10 Code Diagnosis Note [id number] MD Izzy Naqvi Office [address] [place] [address] 04/30/2020 14:29:44 04/30/2020 15:51:37 Atypical chest pain 675983398 R07.89 Treadmill Myoview Stress test, has high [place] Risk score. Has Known CAD, or CAD risk equivalent . To look for any ischemia. 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 Cessation highly advised Essential hypertension 20790244 I10 Hyperlipidemia 98143442 E78.5 Needs to keep LDL less than 100, and HDL more than 40.Current ly not on statin therapyWil l get fasting lipids for follow-up Peripheral vascular disease 203101913 I73.9 Will get arterial doppler, to evaluate severity of peripheral vascular disease Health Concerns Section Related Observation LastModified by Organization Detai ls LastModified Time None Recorded Concern Status LastModified by Organization Details LastModified Time None Recorded Advance Directives Directive N: Payers Encounter Date Sequence Insurance Name Policy Number Policy Brown Covered Member ID Brown Member ID Guarantor Name 04/30/2020 2 [place] [employer] Jeniffer Weller [id number] Jeniffer Weller 04/30/2020 1 [place]ARE-[place] (MEDICARE) Jeniffer Weller [id number] Jeniffer Weller Notes Date Note Type Note Provider Name and Address Organization Details Recorded Time 04/30/2020 text/html 04/30/2020 CC: chest pain Patient is a 64-year-old female with a past medical history of HLD, HTN, COPD, and CKD who is seen in cardiac consultation with a chief complaint of chest pain and hospital follow-up. She was admitted to [facility] on 04/01/2020 with chest pain. Her cardiac [...] She denies ETOH abuse. Merrick Lin MD [address] [facility], [place], [address], [place] - [facility] 04/30/2020 16:39:25 OBGyn Episode No OBEpisode recorded.
--- OUTSIDE RECORDS SUMMARY | 2024-06-03 12:05 | XMS_ITS | Referral Summary ---
Author Organization [facility] Address [address] [place] [address] Care Team Providers Care Disability Benefits Specialist Name Role Phone Unavailable Primary Care Provider Unavailabl e Source Comments [facility],non-owned Affiliates and Associated Physician Practices is amultiple site organization consisting of ambulatory clinics and hospital sitesin [place], [place], [place] and [place]. This disclosure is being madepursuant to the Care Everywhere program and may not contain all information available regarding this patient. Last updated 18.[facility] [employer] Social History Tobacco Use Types Packs/Day Years Used Date Smoking Tobacco: Never Assessed Sex and Gender Information Value Date Recorded Sex Assigned at Not on file Gender Identity Not on file Sexual Orientation Not on file Plan of Treatment Not on file
--- OUTSIDE RECORDS SUMMARY | 2024-06-03 12:05 | XMS_ITS | Clinical Summary ---
Author Organization [facility] Address [facility] [place] [address] Care Team Providers Care Winch Driver Name Role Phone Starla Arshad Vladimir QURESHI Primary Care Provider + Allergies Active Allergy [...] (eight) hours. 21 tablet 01/05/20 24 Active VASCEPA 1 g capsule TAKE [...] AT BEDTIME 90 tablet 04/24/19 25 Active ALPRAZolam (XANAX) 0.5 MG tabletIndications :Anxiety Take 1 tablet (0.5 mg total) by mouth 2 (two) times daily as needed for Anxiety. 60 tablet 05/14/19 25 Active potassium chloride CR (KLOR-CON M) 10 MEQ tabletIndications :Hypopotassemia TAKE 1 TABLET(10 MEQ) BY MOUTH DAILY 90 tablet 05/18/19 25 Active HYDROcodone-aceta minophen (NORCO) 10-325 MG tabletIndications :Chronic Pain Take 1 tablet by mouth every 8 (eight) hours as needed for Pain. Indications: Chronic Pain 90 tablet 05/23/19 25 Active potassium chloride CR (KLOR-CON M) 10 MEQ tabletIndications :Hypopotassemia TAKE 1 TABLET(10 MEQ) BY MOUTH DAILY 90 tablet 02/21/20 24 2024 Discontinued ALPRAZolam (XANAX) 0.5 MG tabletIndications :Anxiety Take 1 tablet (0.5 mg total) by mouth 2 (two) times daily as needed for Anxiety. 60 tablet 04/02/20 24 2024 Discontinued(R eorder) HYDROcodone-aceta minophen (NORCO) 10-325 MG tabletIndications :Chronic Pain Take 1 tablet by mouth every 8 (eight) hours as needed for Pain. Indications: Chronic Pain 05/03/19 25 2024 Discontinued(R eorder) cephALEXin (KEFLEX) 500 MG capsule Take 1 capsule (500 mg total) by mouth 2 (two) times daily for 10 days. 20 capsule 05/22/19 25 2024 Active Problems Problem Noted Date Diagnosed Date Bipolar affective disorder, currently depressed, mild ([facility]) 05/03/2023 Sedative, hypnotic or anxiol ytic dependence, uncomplicated ([facility]) 03/25/2022 PAD (peripheral artery disease) 02/19/2022 Right iliac artery stenosis 02/19/2022 Allergies 07/31/2021 Right lower quadrant abdominal pain 07/31/2021 Tobacco abuse 07/31/2021 Radiculopathy, lumbar region 12/29/2020 Other intervertebral disc degeneration, lumbar r egion 12/29/2020 Spondylolisthesis of lumbar region 12/29/2020 Coronary artery disease of n ative artery of [place] heart with stable angina pectoris 10/01/2020 Degenerative [...] 08/18/2020 Nausea 08/18/2020 Nicotine dependence 08/18/2020 On rn long term care drug therapy 08/18/2020 Polyarthritis 08/18/2020 Postmenopausal status 08/18/2020 Primary osteoarthritis of left knee 08/18/2020 Triggering of digit 08/18/2020 Vitamin D deficiency 08/18/2020 Cerebrovascular accident ([facility]) 04/30 Body mass index (BMI) of 28.0 to 28.9 in adult 0 10/12/2018 Low back pain 10/12/2018 Muscle spasm 02/03/2018 Lumbar foraminal stenosis 01/17/2018 Bulging lumbar disc 01/16/2018 Hypertension 01/16/2018 GERD (gastroesophageal reflux disease) 8 Lumbar stenosis 01/16/2018 Osteoarthrosis 01/16/2018 Depressive disorder 01/16/2018 Chronic obstructive pulmonary disease ([facility]) 01/16/2018 Hyperlipidemia 01/16/2018 Resolved Problems Problem Noted Date Diagnosed Date Resolved Date Screening for breast cancer 08/18/2020 08/25/2020 Infiltrate of lung present on chest x-ray 08/18/2020 05/03/2024 Encounter for preventive health examination 02/13/2014 08/25/2020 Encounters Date Type Department Care Team Description 05/23/2024 Telephone [facility] Medical Group Family & Internal Medicine [address] [phone] Starla Arshad, Medication Request 05/22/2024 3:56 PM LIVE IN CAREGIVER - 05/22/2024 9:24 PM LIVE IN CAREGIVER Emergency [facility] [place] [address] Kathleen Lilly MD Urinary Symptoms; Dizziness Discharge Disposition: Home or Self Care (Routine Discharge) 05/22/2024 Travel 05/17/2024 Telephone [facility] Internal [address] [phone] Starla Arshad, DO Information 05/16/2024 Scan [facility] SRVCS Scanned, [facility] Lab (SCAN) 05/16/2024 Scan [facility] INFO SRVCS Scanned, [facility] Lab (SCAN); Image (SCAN); CT (SCAN) 05/16/[address] [phone] Starla Arshad, DO Advice 05/15/[address] [phone] Strala Arshad, DO Question 05/14/[address] [phone] Starla Arshad, DO Medication Request 05/03/2024 9:40 AM LIVE IN CAREGIVER Office Visit [address] [phone] Starla Arshad, DO Spinal Stenosis (The patient presents for a 3 month follow up ) 05/03/[address] [phone] Starla Arshad, DO Question 05/03/2024 Travel 04/20/2024 Scan [facility] Scanned, [facility] 04/17/2024 Telephone [facility] Internal [id number] [place] [address] Starla Arshad, DO Results 04/12/2024 Telephone [address] [place] [address] Starla Arshad, DO Medication Request 04/04/2024 9:40 AM LIVE IN CAREGIVER Allied Health/Nurse Visit [facility] Internal [address] [phone] Starla Arshad, DO Allied Health Visit 04/04/2024 - 04/04/2024 11:59 PM LIVE IN CAREGIVER Hospital Encounter [facility] [address] Starla Arshad, DO Discharge Disposition: Home or Self Care (Routine Discharge) 04/04/2024 Travel 04/02/2024 Travel 04/02/[address] [address] Starla Arshad, DO Medication Request 04/02/[address] [phone] Starla Arshad, DO Advice 03/26/2024 8:10 AM LIVE IN CAREGIVER - 03/26/2024 12:41 PM LIVE IN CAREGIVER Emergency [facility] [place] [address] Vin Vegas NP Urinary Symptoms Discharge Disposition: Home or Self Care (Routine Discharge) 03/26/2024 Travel 03/26/[address] [address] Starla Arshad, DO Urine 03/07/[address] [address] Starla Arshad, DO Advice 03/05/2024 Telephone [facility] Medical Group Family & Internal Medicine [address] [phone] Starla Arshad, DO Med Refills from Last 3 Months Immunizations Name Administration Dates Next Due COVID-19 Vaccine (Generic) 01/27/2023 Fluzone 6 Months+ Quad (0.5 mL Prefilled Syringe) 01/21/2022 Fluzone High Dose (IIV, triv alent, 0.5mL) 01/18/2024 Fluzone High Dose - >Age 65 (Prefilled Syringe) 01/27/2023 Influenza (Generic) 12/25/2020, 7,01/24/2016,2014,02/09/2015,02/15/2014,01/16/2014,0 01/15/2013,05/14/2009 Influenza Adult (Generic) 01/07/2020,01/25/2019, 01/12/2018 PFIZER COVID-19 (ORIGINAL FORMULATION, PURPLE CAP) mRNA, LNP-S, PF, 30 MCG/0.3 ML DOSE 01/30/2021,07/21/2020,06/30/2020 Pneumococcal (Pneumovax 23) 05/14/2007 Pneumococcal (Prevnar 13) 01/12/2020 Pneumococcal (Prevnar 20) 09/28/2023,12/31/2022 Shingrix 04/06/2021,01/27/2021 Family History Medical History Relation Comments Stroke Father Tuberculosis Maternal Grandmother Heart Disease Mother Dementia Sister Relation Status Comments Father Maternal Grandmother Mother Sister Social History Tobacco Use Types Packs/Day Years Used Date Smoking Tobacco: Every Day Cigarettes 1 54.8 Started: 08/19/1969 Smokeless Tobacco: Never Tobacco Cessation:Ready to Q uit: No; Counseling Given: Yes Comments:trying to quit. provider to family court counsellor Alcohol Use Standard Drinks/Week Comments Never 0 [...] Sex Assigned at Female 05/03/2024 9:57 AM LIVE IN CAREGIVER Legal Sex Female 4:45 PM CDT Gender Identity Female 05/03/2024 9:57 AM LIVE IN CAREGIVER Sexual Orientation Not on file Last Filed Vital Signs Vital Sign Reading Time Taken Comments Blood Pressure 148/73 05/22/2024 8:59 PM LIVE IN CAREGIVER Pulse 70 05/22/2024 8:59 PM LIVE IN CAREGIVER Temperature 36.9 C (98.4 F) 05/22/2024 8:59 PM LIVE IN CAREGIVER Respiratory Rate 16 05/22/2024 8:59 PM LIVE IN CAREGIVER Oxygen Saturation 95% 05/22/2024 8:59 PM LIVE IN CAREGIVER Inhaled Oxygen Concentration - - Weight 67.3 kg (148 lb 5.9 oz) 05/22/2024 2:14 P M LIVE IN CAREGIVER Height 165.1 cm (5' 5 ) 05/22/2024 2:14 PM LIVE IN CAREGIVER Body Mass Index 24.69 05/22/2024 2:14 PM LIVE IN CAREGIVER Plan of Treatment Upcoming Encounters Date Type Department Care Team (Late st Contact Info) Description 08/01/2024 8:20 AM CDT Office Visit [facility] Medical Group Family & Internal Medicine - [address] [phone] [place] [address] [place] [phone] 08/31/2024 12:00 PM CDT Office Visit [facility]-[address] [phone] Abhi Aguilar MD [address] [place] [phone] Health Maintenance Due Date Last Done Comments [...] 01/16, 01/21/2022, Additional history exists PHQ-2 (Physician [place]) Completed 05/03/2024 Meningococcal B Vaccine Aged Out [...] independent in ADLs upon discharge from hospital [facility] Daysi Nayak RN Procedures Procedure Name Priority Date/Time Associated Diagnosis Comments ECG 12-LEAD Routine 05/22/2024 4:19 PM LIVE IN CAREGIVER TROPONIN, QUANT STAT 05/22/2024 4:08 PM LIVE IN CAREGIVER COMPREHENSIVE METABOLIC PANEL STAT 05/22/2024 4:08 PM LIVE IN CAREGIVER CBC W/DIFF AUTOMATED STAT 05/22/2024 4:08 PM LIVE IN CAREGIVER URINE BACTERIA CULTURE STAT 3:19 PM LIVE IN CAREGIVER HC URINALYSIS AUTO W/O MICRO STAT 05/22/2024 3:19 PM LIVE IN CAREGIVER XR CHEST PORTABLE STAT 05/22/2024 3:0 [address] GENERIC 05/16/2024 CT GENERIC 05/16/2024 OUTSIDE LAB COVID-19 (SCAN ORDER) Routine 05/16/2024 OUTSIDE LAB (SCAN ORDER) 05/16/2024 OUTSIDE LAB (SCAN ORDER) 05/16/2024 OUTSIDE LAB (SCAN ORDER) 05/16/2024 OUTSIDE LAB (SCAN ORDER) 05/16/2024 OUTSIDE LAB (SCAN ORDER) 05/16/2024 OUTSIDE LAB (SCAN ORDER) 05/16/2024 OUTSIDE LAB (SCAN ORDER) 05/16/2024 IMAGE GENERIC 05/16/2024 IMAGE GENERIC 05/16/2024 MG/PCCL UDS W CONF Routine 05/03/2024 9: 46 AM LIVE IN CAREGIVER Encounter for long-term (current) use of medications URINE BACTERIA CULTURE Routine 10:08 AM LIVE IN CAREGIVER Gross hematuria Proteinuria, unspecified type URINALYSIS MICRO ONLY Routine 04/04/2024 10:08 AM LIVE IN CAREGIVER Gross hematuria Proteinuria, unspecified type URINALYSIS AUTO DIP Routine 04/04/[address] ABD+PEL KIDNEY STONE STAT 03/26/2024 9:47 AM LIVE IN CAREGIVER URINE BACTERIA CULTURE STAT 9:41 AM LIVE IN CAREGIVER CK (CPK) STAT 03/26/2024 9:37 AM LIVE IN CAREGIVER COMPREHENSIVE METABOLIC PANEL STAT 03/26/2024 9:37 AM LIVE IN CAREGIVER CBC W/DIFF AUTOMATED STAT 03/26/2024 9:37 AM LIVE IN CAREGIVER HC URINALYSIS AUTO W/O MICRO STAT 03/26/2024 8:04 AM LIVE IN CAREGIVER LIPID PANEL Routine 04/05/2023 8:24 AM LIVE IN CAREGIVER Primary hypertension Screening for lipid disorders Screening for endocrine, metabolic and immunity disorder Annual physical exam HEPATITIS C ANTIBODY Routine 04/05/2023 8:24 AM LIVE IN CAREGIVER Primary hypertension Screening for lipid disorders Screening for endocrine, metabolic and immunity disorder Annual physical exam Need for hepatitis C screening test MG DIAG W WILMER BILAT DIGI Routine 09/09/2020 12:14 PM CDT Breast lump on left side at 10 o'clock position from Last 3 Months or Most Recently Relevant to Health Maintenance Results * ECG 12 lead (05/22/2024 4:19 PM LIVE IN CAREGIVER) 05/22/2024 4:19 PM LIVE IN CAREGIVER Narrative [facility] RAD - 05/22/2024 11:53 PM LIVE IN CAREGIVER [place] [address] Test Date: 2024-05-22 Pat Name: DANNY WELLER Department: 41 Room: [place] Gender: Female Gauge Inspector: [id number] : 1955 Requested By: VIN VEGAS Order Number: [id number] Reading MD: Chuy Dowell Measurements Intervals [place] Rate: 70 P: 68 UT: 185 QRS: 69 QRSD: 94 T: 41 QT: 385 QTc: 416 Interpretive Statements SINUS RHYTHM NONSPECIFIC T-WAVE ABNORMALITY Compared to ECG 04/01/2023 11:55:20 T-wave abnormality now present IN CAREGIVER Procedure Note Chuy Dowell MD - 05/22/20[address] [address] [address] [place] Test Date: 2024-05-22 Pat Name: DANNY WELLER Department: 41 Room: [place] Gender: Female Gauge Inspector: [id number] : 1955 Requested By: VIN VEGAS Order Number: [id number] Reading MD: Chuy Dowell Measurements Intervals [place] Rate: 70 P: 68 UT: 185 QRS: 69 QRSD: 94 T: 41 QT: 385 QTc: 416 Interpretive Statements SINUS RHYTHM NONSPECIFIC T-WAVE ABNORMALITY Compared to ECG 04/01/2023 11:55:20 T-wave abnormality now present IN CAREGIVER us Vin Vegas SEMAPHORE OPERATOR ECG ORDERABLES Final Result [facility] ([facility]) RAD * (ABNORMAL) COMPREHENSIVE METABOLIC PANEL (05/22/2024 4:08 PM LIVE IN CAREGIVER) Only the most recent of2 resultswithin the time period is included. GLUCOSE 102(H) 70 - 99 MG/DL 05/22/2024 5:11 PM LIVE IN CAREGIVER [facility] BUN 13 7 - 18 MG/DL 05/22/2024 5:11 PM [facility] CREATININE S/P/B 0.61 0.55 - 1.02 MG/DL 05/22/2024 5:11 PM LIVE IN CAREGIVER [facility] SODIUM S/P/B 137 136 - 145 MMOL/L 05/22/2024 5:11 PM LIVE IN CAREGIVER [facility] POTASSIUM S/P/B 3.8 3.5 - 5.1 MMOL/L 05/22/2024 5:11 PM [facility] CHLORIDE S/P/B 106 97 - 115 MMOL/L 05/22/2024 5:11 PM LIVE IN CAREGIVER [facility] CO2 30.6 21 - 32 MMOL/L 05/22/2024 5:11 PM [facility] CALCIUM S/P/B 9.4 8.5 - 10.1 MG/DL 05/22/2024 5:11 PM [facility] BILIRUBIN TOTAL S/P/B 0.4 0.2 - 1.2 MG/DL 05/22/2024 5:11 PM [facility] Comment: THIS ASSAY IS NOT RECOMMENDED FOR PATIENTS UNDERGOING TREATMENT WITH ELTROMBOPAG DUE TO THE POTENTIAL FOR FALSELY ELEVATED RESULTS. TOTAL PROTEIN S/P/B 7.7 6.4 - 8.2 G/DL 05/22/2024 5:11 PM [facility] ALBUMIN S/P/B 3.7 3.4 - 5.0 G/DL 05/22/2024 5:11 PM [facility] AST 14(L) 15 - 37 U/L 05/22/2024 5:11 PM [facility] ALT 17 14 - 55 U/L 05/22/2024 5:11 PM [facility] ALKALINE PHOSPHATASE S/P/B 65 50 - 136 U/L 05/22/2024 5:11 PM [facility] ANION GAP 0.4(L) 2 - 10 MMOL/L 05/22/2024 5:11 PM [facility] BUN CREATININE RATIO 21.2 6 - 26 05/22/2024 5:11 PM [facility] A/G RATIO 0.9(L) 1.0 - 2.0 RATIO 05/22/2024 5:11 PM [facility] GFR ESTIMATE >90 >90 ML/MIN/1.7 3 M2 05/22/2024 5:11 PM [facility] Comment: NOTE: eGFR is not calculated for patients <18 years of age or gender unknown. This is an estimated GFR calculation using the new CKD EPI creatinine equation without race and so does not require a correction factor for race. This estimated GFR should not be used for calculating drug doses. 05/22/2024 4:08 PM LIVE IN CAREGIVER Vin Vegas NP LABORATORY Final Result [facility] [address] [place] [address], * (ABNORMAL) CBC W/DIFF AUTOMATED (05/22/2024 4:08 PM LIVE IN CAREGIVER) Only the most recent of2 resultswithin the time period is included. WBC 7.30 4.5 - 11.0 x10'3/uL 05/22/2024 4:44 PM LIVE IN CAREGIVER [facility] RBC 4.29 4.20 - 5.40 x10'6/uL 05/22/2024 4:44 PM LIVE IN CAREGIVER [facility] HGB 13.8 12.0 - 16.0 G/DL 05/22/2024 4:44 PM [facility] HCT 39.3 38.0 - 48.0 % 05/22/2024 4:44 PM LIVE IN CAREGIVER [facility] MCV 91.6 81.0 - 99.0 FL 05/22/2024 4:44 PM LIVE IN CAREGIVER [facility] MCH 32.2(H) 27.0 - 31.0 PG 05/22/2024 4:44 PM LIVE IN CAREGIVER [facility] MCHC 35.1 32.0 - 36.0 G/DL 05/22/2024 4:44 PM [facility] RDW 12.7 11.5 - 14.5 % 05/22/2024 4:44 PM [facility] PLT 284 130 - 400 x10'3/uL 05/22/2024 4:44 PM [facility] MPV 9.1(L) 9.3 - 12.2 FL 05/22/2024 4:44 PM [facility] DIFFERENTIAL TYPE AUTOMATED DIFFERENTIAL 05/22/2024 4:44 PM [facility] NEUTROPHILS % 44.9 % 05/22/2024 4:44 PM [facility] LYMPHOCYTES % 37.8 % 05/22/2024 4:44 PM [facility] MONOCYTES % 9.6 % 05/22/2024 4:44 PM [facility] EOSINOPHILS 6.3 % 05/22/2024 4:44 PM [facility] BASOPHILS 1.1 % 05/22/2024 4:44 PM [facility] IMMATURE GRANS % 0.3 % 05/22/19 4:44 PM [facility] ABS. NEUTROPHILS 3.28 1.80 - 7.70 x10'3/uL 05/22/2024 4:44 PM [facility] ABS. LYMPHOCYTES 2.76 1.00 - 4.80 x10'3/uL 05/22/2024 4:44 PM [facility] ABS. MONOCYTES 0.70 0.24 - 0.86 x10'3/uL 05/22/2024 4:44 PM LIVE IN CAREGIVER [facility] ABS. EOSINOPHILS 0.46(H) 0.04 - 0.36 x10'3/uL 05/22/2024 4:44 PM [facility] ABS. BASOPHILS 0.08 0.01 - 0.08 x10'3/uL 05/22/2024 4:44 PM [facility] ABS. IMMATURE GRANULOCYTES 0.02 0.00 - 0.49 x10'3/uL 05/22/2024 4:44 PM LIVE IN CAREGIVER [facility] 05/22/2024 4:08 PM LIVE IN CAREGIVER Vin Orantesace SEMAPHORE OPERATOR LABORATORY Final Result Performing Organization Address [facility]/ZIP Co de Phone Number [facility] [address] [place] [address], * TROPONIN, QUANT (05/22/2024 4:08 PM LIVE IN CAREGIVER) [facility] TROPONIN I HIGH SENSITIVITY <3 <54 ng/L 05/22/2024 5:11 PM LIVE IN CAREGIVER [facility] Comment: HIGH DOSES OF BIOTIN, TROPONIN-SPECIFIC AUTOANTIBODIES, AND ANTIBODY THERAPY CONTAINING HAMA MAY INTERFERE WITH THIS TEST RESULT. CORRELATION TO CLINICAL HISTORY AND PRESENTATION RECOMMENDED. 05/22/2024 4:0 8 PM LIVE IN CAREGIVER Vin Breen Vegas SEMAPHORE OPERATOR LABORATORY Final Result Performing Organization Address [facility] Co de Phone Number [facility] [address] [place] [address], * (ABNORMAL) URINALYSIS (05/22/2024 3:19 PM LIVE IN CAREGIVER) Only the most recent of2 resultswithin the time period is included. Pathologist [facility] SPECIMEN TYPE URINE CLEAN CATCH 05/22/2024 3:22 PM LIVE IN CAREGIVER [facility] COLOR (U) LIGHT ORANGE 05/22/2024 3:33 PM LIVE IN CAREGIVER [facility] TRANSPARENCY TURBID 05/22/2024 3:33 PM LIVE IN CAREGIVER [facility] SPECIFIC GRAVITY (U) 1.013 1.001 - 1.030 05/22/2024 3:33 PM LIVE IN CAREGIVER [facility] U PH 6.5 5.0 - 9.0 05/22/2024 3:33 PM LIVE IN CAREGIVER [facility] LEUKOCYTES (U) 25(A) NEGATIVE 05/22/2024 3:33 PM LIVE IN CAREGIVER [facility] NITRITES NEGATIVE NEGATIVE 05/22/2024 3:33 PM LIVE IN CAREGIVER [facility] PROTEIN RANDOM (U) 20 <30 MG/DL 05/22/2024 3:33 PM LIVE IN CAREGIVER [facility] GLUCOSE (U) NORMAL NORMAL MG/DL 05/22/2024 3:33 PM LIVE IN CAREGIVER [facility] KETONES MG/DL (U) NEGATIVE NEGATIVE MG/DL 05/22/2024 3:33 PM LIVE IN CAREGIVER [facility] UROBILINOGEN NORMAL NORMAL MG/DL 05/22/2024 3:33 PM LIVE IN CAREGIVER [facility] BILIRUBIN (U) NEGATIVE NEGATIVE MG/DL 05/22/2024 3:33 PM LIVE IN CAREGIVER [facility] BLOOD (U) 3+(A) NEGATIVE 05/22/2024 3:33 PM LIVE IN CAREGIVER [facility] WBC/HPF 88(H) <6 /HPF 05/22/2024 3:33 PM LIVE IN CAREGIVER [facility] RBC/HPF >100(H) <6 /HPF 05/22/2024 3:33 PM LIVE IN CAREGIVER [facility] BUDDING YEAST RARE(A) NONE /HPF 05/22/2024 3:33 PM LIVE IN CAREGIVER [facility] SQUAMOUS EPITHELIALS RARE /HPF 05/22/2024 3:33 PM LIVE IN CAREGIVER [facility] URINE SPECIMEN OBTAINED BY CLEAN CATCH PROCEDURE / Unknown 05/22/2024 3:19 PM LIVE IN CAREGIVER us Vin Vegas NP URINE ORDERABLES Final Result [facility] [address] [place] [address], [place] [phone] * CULTURE URINE (05/22/2024 3:19 PM LIVE IN CAREGIVER) Only the most recent of3 resultswithin the time period is included. SPEC DESCRIPTION URINE CLEAN CATCH 05/22/2024 3:21 PM LIVE IN CAREGIVER [facility] SPECIAL REQUESTS NO SPECIAL REQUEST 05/22/2024 3:21 PM LIVE IN CAREGIVER [facility] CULTURE RESULT NO GROWTH 2 DAYS 05/24/2024 6:42 AM LIVE IN CAREGIVER [facility] URINE SPECIMEN OBTAINED BY CLEAN CATCH PROCEDURE / Unknown 05/22/2024 3:19 PM LIVE IN CAREGIVER 05/22/2024 3:23 PM LIVE IN CAREGIVER us Vin Vegas SEMAPHORE OPERATOR MICROBIOLOGY - GENERAL ORDERAB LES Final Result Performing Organization Address City/State/[facility] Co de Phone Number [facility] [address] [place] [address], [place] [phone] * XR CHEST PORTABLE (05/22/2024 3:02 PM LIVE IN CAREGIVER) Anatomical Region Laterality Modality Chest Radiographic Nuris ging 05/22/2024 3:04 PM LIVE IN CAREGIVER Impressions 05/22/2024 3:05 PM LIVE IN CAREGIVER Impression: Unremarkable one view chest; no radiographic evidence of acute/active cardiopulmonary disease Ordered By: VIN VEGAS Interpreted By: Lisa Edwards MD, 05/22/2024 3:04 PM Narrative 05/22/2024 3:05 PM LIVE IN CAREGIVER [facility] [address] [place], [place] [address] Examination: Chest x-ray 1 view Exam date/time: 05/22/2024 2:50 PM Reason For Exam: 68 female. Right-sided chest pain and jaw pain. Hematuria. Lightheadedness Comparison: Chest x-ray 09/20/2020 Technique: Portable AP upright view of the chest Findings: Normal cardiac size. Normally positioned trachea. Thoracic aortic atherosclerotic calcification. Hilar and mediastinal contours are within normal limits. Pulmonary vasculature is normal. Lungs and pleural spaces are radiographically clear; no consolidation, effusion or pneumothorax. Unremarkable upper abdomen. Procedure Note Lisa Edwards MD - 05/22/2024 [facility] [address] [place], [place] [address] Examination: Chest x-ray 1 view Exam date/time: 05/22/2024 2:50 PM Reason For Exam: 68 female. Right-sided chest pain and jaw pain.Hematuria. Lightheadedness Comparison: Chest x-ray 09/20/2020 Technique: Portable AP upright view of the chest Findings: Normal cardiac size. Normally positioned trachea. Thoracicaortic atherosclerotic calcification. Hilar and mediastinal contours arewithin normal limits. Pulmonary vasculature is normal. Lungs and pleural spaces are radiographically clear; no consolidation,effusion or pneumothorax. Unremarkable upper abdomen. Impression: Unremarkable one view chest; no radiographic evidence of acute/activecardiopulmonary disease Ordered By: VIN VEGAS Interpreted By: Lisa Edwards MD, 05/22/2024 3:04 PM Vin Vegas SEMAPHORE OPERATOR GENERAL IMAGING Final Result * OUTSIDE LAB COVID-19 (05/16/2024) CORONAVIRUS SARS COV 2 PCR (RESP) NOT DETECTED NOT DETECTED [facility] ONBASE 05/16/2024 [facility] Scanned SCANNING Final Resu lt [facility] ONBASE * CT GENERIC (05/16/2024) Only the most recent of2 resultswithin the time period is included. Anatomical Region Laterality Modality Other 05/16/2024 [facility] Scanned SCANNING Final Resu lt * OUTSIDE LAB (SCAN ORDER) (05/16/2024) Only the most recent of7 resultswithin the time period is included. 05/16/2024 [facility] Scanned SCANNING Final Resu lt * IMAGE GENERIC (05/16/2024) Only the most recent of2 resultswithin the time period is included. Anatomical Region Laterality Modality Other 05/16/2024 Result [facility] Scanned SCANNING Final Resu lt * (ABNORMAL) MG/PCCL UDS W CONF (05/03/2024 9:46 AM LIVE IN CAREGIVER) RESULT SUMMARY [facility] Comment: Prescribed Prescribed Not Prescribed Consistent Inconsistent Inconsistent Hydrocodone Marijuana Metabolite Xanax(TM) PRESCRIBED DRUG 1 (U) Xanax(TM) [facility] PRESCRIBED DRUG 2 (U) Hydrocodone [facility] FENTANYL SCREEN (U) NEGATIVE <0.5 ng/mL [facility] MORPHINE (U) NEGATIVE <10 ng/mL [facility] DESMETHYLTRAMADOL (U) NEGATIVE <100 ng/mL [facility] TRAMADOL (U) NEGATIVE <100 ng/mL [facility] TRAMADOL COMMENTS [facility] Comment:See LDT Notes AMPHETAMINES PM NEGATIVE <500 ng/mL [facility] BARBITURATES PM (U) NEGATIVE <300 ng/mL [facility] BENZODIAZEPINES PM (U) POSITIVE(A) <100 ng/mL [facility] ALPHAHYDROXYALPRAZOLAM PM (U) 518(H) <25 ng/mL [facility] [place] AGUST[facility] ALPHAHYDROXYALPRAZOLAM PM MEDMATCH (U) CONSISTENT [facility] [place] AG[facility] MIDAZOLAM PM (U) NEGATIVE <50 ng/mL [facility] [place] [facility] ALPHAHYDROXYTRIAZOLAM PM (U) NEGATIVE <50 ng/mL [facility] [place] [facility] AMINOCLONAZEPAM PM (U) INTERFERENCE( A) <25 ng/mL [facility] [place] [place] Comment: See Note A See Note A OH ET FLURAZEPAM PM (U) NEGATIVE <50 ng/mL [facility] [place] [facility] LORAZEPAM PM (U) NEGATIVE <50 ng/mL [facility] [place] [facility] NORDIAZEPAM PM (U) NEGATIVE <50 ng/mL [facility] [place] [facility] OXAZEPAM PM (U) NEGATIVE <50 ng/mL [facility] [place] [facility] TEMAZEPAM PM NEGATIVE <50 ng/mL [facility] [place] [place] BENZODIAZEPINES COMMENTS [facility] [place] [place] Comment:See Benzodiazepines Notes, LDT Notes COCAINE METABOLITE PM (U) NEGATIVE <150 ng/mL [facility] [place] [facility] MARIJUANA METABOLITE PM (U) POSITIVE(A) <20 ng/mL [facility] [place] [place] MARIJUANA METABOLITE PM CONF (U) 221(H) <5 ng/mL [facility] [place] [place] MARIJUANA METAB PM MM CONF (U) INCONSISTENT( A) [facility] [place] [place] MARIJUANA COMMENTS [facility] [place] [place] Comment:See Marijuana Notes, LDT Notes METHADONE PM (U) NEGATIVE <100 ng/mL [facility] [place] OPIATES PM (U) POSITIVE(A) <100 ng/mL [facility] [place] [facility] CODEINE PM (U) NEGATIVE <50 ng/mL [facility] [place] [facility] HYDROCODONE PM (U) 1,518(H) <50 ng/mL [facility] [place] [facility] HYDROCODONE PM MEDMATCH (U) CONSISTENT [facility] [place] [facility] HYDROMORPHONE PM (U) 391(H) <50 ng/mL [facility] HYDROMORPHONE PM MEDMATCH CONSISTENT [facility] [place] [facility] MORPHINE PM (U) NEGATIVE <50 ng/mL [facility] [place] [facility] NORHYDROCODONE PM (U) 4,279(H) <50 ng/mL [facility] [place] [facility] NORHYDROCODONE PM MM (U) CONSISTENT [facility] [place] [facility] OPIATES COMMENTS [facility] [place] [place] Comment:See Opiates Notes, L DT Notes OXYCODONE PM (U) NEGATIVE <100 ng/mL [facility] [place] CREATININE RANDOM (U) 136.4 > or = 20.0 mg/dL [facility] pH PM (U) 7.5 4.5 - 9.0 [facility] OXIDANT NEGATIVE <200 mcg/mL [facility] NOTE [facility] Comment: This drug testing is for medical [...] to Marijuana (THC) and/or hemp derived products. Some jurisdictions do not include hemp within [...] analytical performance characteristics have been determined by [facility]. It has not been cleared or approved by the FDA. This assay has been validated pursuant to the CLIA regulations and is used for clinical purposes. medMATCH(R) enables providers to identify if drug use is consistent or inconsistent with a corresponding prescribed medication(s) list. Healthcare Providers needing Interpretation assistance, please contact us at [phone] ( ) M-F, 8am to 10pm EST URINE SPECIMEN / Unknown 05/03/2024 9:46 AM LIVE IN CAREGIVER 05/04/2024 10:38 PM LIVE IN CAREGIVER Narrative Resulting Agency Comment Performing Organization Information: Site ID: [place] Name: [facility] Address: [address] [place] [id number] Director: Shon Moe Site ID: [place] Name: [facility] Address: [address] [place] [address] Director: Suman Paiz MD Starla Arshad DO URINE ORDERABLES Final R esult Performing Organization Address City/[facility]/ZIP Co de Phone Number [facility] - DIMPLE ORDERS [facility] [address] [facility] [address], [facility] [place] [place] [address] [place] [address] * (ABNORMAL) URINALYSIS MICRO ONLY (04/04/2024 10:08 AM LIVE IN CAREGIVER) Pathologist [facility] RBC/HPF PACKED(A) 0 - 3 /HPF 04/04/2024 3:07 PM LIVE IN CAREGIVER [facility] WBC/HPF 0-3 0 - 3 /HPF 04/04/2024 3:07 PM LIVE IN CAREGIVER [facility] EPI/HPF 0-3 /HPF 04/04/2024 3:07 PM LIVE IN CAREGIVER [facility] BACTERIA (U) TRACE(A) NONE SEEN 04/04/2024 3:07 PM LIVE IN CAREGIVER [facility] URINE SPECIMEN OBTAINED BY CLEAN CATCH PROCEDURE / Unknown 04/04/2024 10:08 AM LIVE IN CAREGIVER Starla Arshad DO URINE ORDERABLES Final R esult Performing Organization Address [facility] Co de Phone Number [facility] [address] [place] [address], * (ABNORMAL) URINALYSIS AUTO DIP (04/04/2024) COLOR (U) RED(A) YELLOW [facility] TRANSPARENCY CLOUDY(A) CLEAR [facility] H [facility] GLUCOSE (U) NEGATIVE NEGATIVE MG/DL [facility] BILIRUBIN (U) 1+ (SMALL)(A) NEGATIVE [facility] KETONES MG/DL (U) NEGATIVE NEGATIVE MG/DL [facility] SPECIFIC GRAVITY (U) 1.020 1.001 - 1.035 [facility] BLOOD (U) LARGE (3+ Hemolyzed, About 250 rbc/uL)(A) NEGATIVE [facility] U PH 6.5 5.0 - 9.0 [facility] PROTEIN (U) 2+ (100)(A) NEGATIVE mg/dL [facility] UROBILINOGEN 0.2 0.2 - 1.0 EU/dL = mg/dL [facility] NITRITES NEGATIVE NEGATIVE MG/DL [facility] LEUKOCYTES (U) NEGATIVE NEGATIVE [facility] URINE SPECIMEN OBTAINED BY CLEAN CATCH PROCEDURE / Unknown 04/04/2024 us Starla Arshad DO URINE ORDERABLES Final R esult [facility] [address] [place] [address], [place] * CT ABD+PEL KIDNEY STONE (03/26/2024 9:47 AM LIVE IN CAREGIVER) Anatomical Region Laterality Modality Abdomen Computed Tomogra phy 03/26/2024 9:50 AM LIVE IN CAREGIVER Impressions 03/26/2024 10:19 AM LIVE IN CAREGIVER IMPRESSION: 1. Bilateral renal tiny nonobstructing nephrolithiasis [...] 03/26/2024 9:50 AM Narrative 03/26/2024 10:19 AM LIVE IN CAREGIVER [facility] [address] [address] Exam: CT abdomen and pelvis without contrast Exam Date/Time: 03/26/2024 9:43 AM Indication: 68 female. Evaluation for renal stones. Hematuria. Reported dark urine for 3 weeks be Comparison: CT [...] Procedure Note Lisa Edwards MD - 03/26/[address] [address] Exam: CT abdomen and pelvis without contrast [...] By: Lisa Edwards MD, 03/26/2024 9:50 AM Vin Vegas NP CT Final Result * CK (CPK) (03/26/2024 9:37 AM LIVE IN CAREGIVER) CPK 84 21 - 215 U/L 03/26/2024 11:39 AM LIVE IN CAREGIVER [facility] 03/26/2024 9:37 AM LIVE IN CAREGIVER Vin C Vegas SEMAPHORE OPERATOR LABORATORY Final Result [facility] [address] [place] [address], [place] [phone] * (ABNORMAL) LIPID PANEL (04/05/2023 8:24 AM LIVE IN CAREGIVER) CHOLESTEROL 135 <200 MG/DL 04/05/2023 4:46 PM LIVE IN CAREGIVER [facility] TRIGLYCERIDES 127 <150 MG/DL 04/05/2023 4:46 PM LIVE IN CAREGIVER [facility] HDL 37(L) >40 MG/DL 04/05/2023 4:46 PM LIVE IN CAREGIVER [facility] LDL-C 73 <100 MG/DL 04/05/2023 4:46 PM LIVE IN CAREGIVER [facility] VLDL CALCULATION 25 5 - 28 MG/DL 04/05/2023 4:46 PM LIVE IN CAREGIVER [facility] CHOL/HDL RATIO 3.6 0.0 - 4.0 04/05/2023 4:46 PM LIVE IN CAREGIVER [facility] LDL/HDL 2.0 0.41 - 2.13 04/05/2023 4:46 PM LIVE IN CAREGIVER [facility] NON HDL CHOLESTEROL 98 <140 MG/DL 04/05/2023 4:46 PM LIVE IN CAREGIVER [facility] 04/05/2023 8:24 AM LIVE IN CAREGIVER Starla Arshad DO LABORATORY Final Re sult [facility] [address] [place] [address], [place] [phone] * HEPATITIS C ANTIBODY (04/05/2023 8:24 AM LIVE IN CAREGIVER) HEPATITIS C AB NON-REACTI VE NON-REACT RAUL 04/05/2023 6:53 PM LIVE IN CAREGIVER [facility] Comment: ANTIBODIES TO HCV NOT DETECTED. DOES NOT EXCLUDE THE POSSIBILITY OF EXPOSURE TO HCV. 04/05/2023 8:24 AM LIVE IN CAREGIVER Starla Arshad DO LABORATORY Final Re sult [facility] [address] [place] [address], [id number] * MG DIAG W WILMER BILAT DIGI (09/09/2020 12:14 PM CDT) Anatomical Region Laterality Modality Breast Bilateral Mammography 09/09/2020 12:5 2 PM CDT Impressions 09/09/2020 12:56 PM CDT IMPRESSION: 1. Moderately dense breasts with no mammographically suspicious change since the previous exams. 2. No sonographically discrete or suspicious abnormality identified within the region of interest on the left. 3. Follow-up as described. Recommendation: 1: Routine screening mammogram Bilateral in 1 Year Overall assessment: ACR BI-RADS Category 2 - Benign. Return for Routine Follow-Up: Yes Referred By: STARLA ARSHAD Interpreted By: Nathaniel De Guzman MD, 09/09/2020 12:52 PM Narrative 09/09/2020 12:56 PM CDT Examination: Bilateral digital diagnostic mammogram with CAD. [id number] Clinical history: Left breast lump and tenderness. Routine screening on the right. Comparison: 10/03/2014, 03/30/2011, 11/09/2010, 11/22/2007. Technique: Bilateral digital mammograms including spot compression imaging on the left. The exam was interpreted with the use of a computer-aided detection (CAD) system. Additional 3-D Tomosynthesis images were acquired. Tissue density: The breast tissue is heterogeneously dense. Findings: There has been no suspicious change. The breasts [...] demonstrate any discrete solid or cystic mass. Cody appearing tissue architecture is demonstrated. Physical exam surveillance is advised with any further evaluation at this point guided on that basis. From a mammographic standpoint, routine follow-up in one year would seem adequate. These findings were discussed with the patient. us Starla Arshad DO MAMMO Final Re sult from Last 3 Months or Most Recently Relevant to Health Maintenance Insurance [facility] MEDICAID Advance Directives * Full Code (Latest Code Status on File) Date Activated Date Inactivated Comments 09/22/2020 12:40 PM 09/23/2020 12:52 PM Care Teams Winch Driver Relationship Specialty Start Date End Date [facility], DO [address] [place] [address] PCP - General FAMILY PRACTICE 08/19/20
--- OUTSIDE RECORDS SUMMARY | 2024-06-03 12:05 | XMS_ITS | Clinical Summary ---
Author Organization [facility] Address [address] [place] [address] Care Team Providers Care Chemical Equipment Repairer Name Role Phone Unavailable Primary Care Provider Unavailabl e Source Comments [facility],non-owned Affiliates and Associated Physician Practices is amultiple site organization consisting of ambulatory clinics and hospital sitesin [place], [place], [place]. This disclosure is being madepursuant to the Care Everywhere program and may not contain all information available regarding this patient. Last updated 18.[facility] Social History Tobacco Use Types Packs/Day Years [...] (#1) 2023 DEPRESSION SCREENING 04/18/2024 MEDICARE AWV CALENDAR YEAR 2024 Respiratory Syncytial Virus (RSV) [...]
--- OUTSIDE RECORDS SUMMARY | 2024-06-03 12:05 | XMS_ITS | Continuity of Care Document ---
Author Organization [facility] Address [address] [place] [address] [address] [place] [address] Phone Care Team Providers Care Protective Signal Superintendent Name Role Phone Idris PT, DPT, Ave Unavailable Unavailable Procedures Procedure Date Therapeutic Exercise Neuromuscular Re-Ed Therapeutic Activities Hot or Cold Pack PT Evaluation Low Complexity Neuromuscular Re-Ed Therapeutic Activities Advance Directives Directive Yes / No Effective Date File Name No Information Encounters Encounter Description Practice Location Reason(s) For Visit Diagnoses Date Provider Providers Copied on Encounter [facility] [address], [id number], tel:[phone] [place] No Information Sep-0 [address] [facility] [address] [place] [address], [id number], tel:[phone] [place] No Information Sep-0 2- 1 Idris Dorado. . Referring Provider: Jimmy Doyle , [address] [place] [address], [address]. tel:[phone], [id number], tel:[phone] [place] No Information Nov- 0-202 1 Idris Dorado. . Referring Provider: Jimmy Doyle , [address] [place] [address], [address]. tel:[phone] Family History Family Member Type Diagnosis Age At Onset No Information Payers Payer name Insurance type Covered alliance party ID Authorcesiliapauline jamietristian(s) Medicare [place] [id number] Medicaid OON Write Off CI 00 Social [...]
--- OUTSIDE RECORDS SUMMARY | 2024-06-03 12:05 | XMS_ITS | Encounter Summary ---
Author Organization [facility] Address [address] [place] [address] Care Team Providers Care Music Producer Name Role Phone Unavailable Primary Care Provider Unavailabl e Encounter Details Date Type Department Care Team (Late st Contact Info) Description 01/28/2022 Lab Requisition [facility] [address] [place] [address] Kathy Mason MD [address] [place], [place] [id number] Illness, unspecified Social History Tobacco Use Types [...] 10:46 AM CDT) Final Diagnosis URINE/VOIDED (OSC: [id number]; 01/25/2022): - Negative for high grade urothelial carcinoma 01/28/2022 12:22 PM CDT [facility] Microscopic Description and Comment Microscopic examination substantiates the final diagnosis. 01/28/2022 12:22 PM CDT [facility] Clinical History HEMATURIA 01/28/2022 12:22 PM CDT [facility] Materials Received One thin prep slide received from [facility] [id number]. All material will be returned. 01/28/2022 12:22 PM CDT [facility] Disclaimer The performance characteristics of all immunohistochemical and indirect immunofluorescence stains (if any) cited in this report were determined by the Histopathology Laboratory of [facility]. Some of these tests were developed by [...] attending (teaching) pathologist. 01/28/2022 12:22 PM CDT [facility] Case Report Surgical Pathology Report Case: [id number] Authorizing Provider: Kathy Mason MD Collected: 01/28/2022 10:46 AM Ordering Location: [facility] Received: 01/28/2022 10:51 AM Pathologist: Flaquito Bruno MD Specimen: Slide Consultation 01/28/2022 12:22 PM CDT [facility] Embedded Images 01/28/2022 12:22 PM CDT [facility] Pathology/Cytolo gy SURGICAL PATHOLOGY CONSULTATION AND REPORT ON REFERRED SLIDES PREPARED ELSEWHERE / Unknown 01/28/2022 10:46 AM CDT 01/28/2022 10:51 AM CDT Kathy Mason MD LAB - PATHOLOGY/CYTO LOGY ORDERABLES Performing Organization Address City/State/[facility] Co de Phone Number [facility] [address] [place], [place] [id number] [place] [address] documented in this encounter Visit Diagnoses Diagnosis Illness, unspecified documented in this encounter
--- OUTSIDE RECORDS SUMMARY | 2024-06-03 12:05 | XMS_ITS | Referral Summary ---
Author Organization [facility] Address [facility] [place] [address] Care Team Providers Care Bullet Maker Name Role Phone Jimmy Doyle Primary Care Provide r Derrell Varma MD Unavailable [phone] Allergies Active Allergy Reactions Criticality Noted Date [...] on file Legal Sex Female 12:04 PM BREAD DUMPER Gender Identity Not on file Sexual Orientation Not on file Last Filed Vital Signs Vital Sign Reading Time Taken Comments Blood Pressure 134/66 02/12/2022 6:54 AM CDT Pulse 88 02/12/2022 6:54 AM CDT Temperature 36.8 C (98.2 F) 02/12/2022 6:54 AM CDT Respiratory Rate 16 02/12/2022 8:54 AM CDT Oxygen Saturation 94% 02/12/2022 6:54 AM CDT Inhaled Oxygen Concentration - - Weight 70.3 kg (155 lb) 02/09/2022 2:13 PM CDT Height 170.2 cm (5' 7 ) 02/09/2022 2:13 PM CDT Body Mass Index 24.28 02/09/2022 2:13 PM CDT Plan of Treatment Not on file Insurance [employer] MEDICARE [employer] MEDICARE [employer] MEDICARE [employer]PA Advance Directives For more information, please contact: [phone] * Full Code (Latest Code Status on File) Date Activated Date Inactivated Comments 02/09/2022 9:51 PM 02/12/2022 5:52 PM Care Teams Bullet Maker Relationship Specialty Start Date End Date Jimmy Doyle DO [address] [place] [address] PCP - General Family Medicine 02/12/22 Derrell Varma MD [address] [address] [address] Surgeon Surgery 02/12/22
--- OUTSIDE RECORDS SUMMARY | 2024-06-03 12:05 | XMS_ITS | Encounter Summary ---
Author Organization [facility] Address [facility] [place] [address] Care Team Providers Care Inserter Promotional Item Name Role Phone Jimmy Doyle Primary Care Provider + Encounter Details Date Type Department Care Team (Late st Contact Info) Description 01/11/2022 Abstract [facility] [address] Doni Moore MA Social History Tobacco Use Types Packs/Day Years Used Date Smoking Tobacco: Every Day Cigarettes 1 54.8 Started: [birth year]/19/1967 Smokeless Tobacco: Never Comments:trying to quit. 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 Alcohol Use Standard Drinks/Week Comments Never [...] Sex Assigned at Female 05/03/2024 9:57 AM PROPERTY AND CASUALTY INSURANCE AGENT Legal Sex Female 4:45 PM CDT Gender Identity Female 05/03/2024 9:57 AM PROPERTY AND CASUALTY INSURANCE AGENT Sexual Orientation Not on file COVID-19 Exposure [...] Description 08/01/2024 8:20 AM CDT Office Visit [facility] Family & Internal Medicine - [address] [address] Jimmy Doyle DO [address] [place] [address] 08/31/2024 12:00 PM CDT Office Visit [facility] [address] Abhi Aguilar MD [address] [place] [phone] (work) documented as of this encounter Goals Goal Patient Goal Type Associated Problems Recent Progress Patient-Stated? Author Patient will return to prior living situation and remain independent in ADLs upon discharge from [facility] Daysi Nayak RN documented as of this [...] Total Score: 8 05/13/19 22 10:36 AM PROPERTY AND CASUALTY INSURANCE AGENT documented as of this encounter Care Teams Inserter Promotional Item Relationship Specialty Start Date End Date Jimmy Doyle DO [address] [place] [address] PCP - General FAMILY PRACTICE 08/19/20 documented as of this encounter
--- OUTSIDE RECORDS SUMMARY | 2024-06-03 12:05 | XMS_ITS | Clinical Summary ---
Author Organization [facility] Address [facility] [place] [address] Care Team Providers Care Strings Teacher Name Role Phone Jimmy Doyle Primary Care Provide r Derrell Varma MD Unavailable [phone] Allergies Active Allergy Reactions Criticality Noted [...] on file Legal Sex Female 12:04 PM BANDMILL OPERATOR Gender Identity Not on file Sexual Orientation [...] exists Zoster Vaccine Completed 04/06/2021, 01/27/2021 Insurance [employer] MEDICARE [employer] [facility] MEDIC[facility] Address: [address] [address] [place] [address] [employer] MEDICARE SOL[employer] MEDICARE [facility] Advance Directives For more information, please contact: [phone] * Full Code (Latest Code Status on File) Date Activated Date Inactivated Comments 02/09/2022 9:51 PM 02/12/2022 5:52 PM Care Teams Strings Teacher Relationship Specialty Start Date End Date Jimmy Doyle DO [address] [place] [address] PCP - General Family Medicine 02/12/22 Derrell Varma MD [address] [facility] [address] [address] Surgeon Surgery 02/12/22
--- OUTSIDE RECORDS SUMMARY | 2024-06-03 12:05 | XMS_ITS | Encounter Summary ---
Author Organization [facility] Address [facility] [place] [address] Care Team Providers Care Mash Tub Cooker Name Role Phone Jimmy Doyle DO Primary Care Provider + Encounter Details Date Type Department Care Team (Late st Contact Info) Description 06/23/2022 Prep for Procedure [facility] [address] [place], [place] [phone] Flaquito Valera MD [facility]. [facility] [address] [place], [place] [phone] Social History Tobacco Use Types Packs/Day Years Used Date Smoking Tobacco: Every Day Cigarettes 1 54.8 Started: 08/19/1967 Smokeless Tobacco: Never Comments:trying to quit. 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 No / Unsure 06/24/2022 12:41 PM DISTRICT BRANCH MANAGER documented as of this encounter Functional Status [...] Description 08/01/2024 8:20 AM CDT Office Visit [facility] Family & Internal Medicine - [address] [phone] Jimmy Doyle, [address] [place] [address] 08/31/2024 12:00 PM CDT Office Visit [facility] [phone] Abhi Aguilar MD [address] [place] [address] [address] [place] [address] documented as of this encounter Goals Goal [...] Total Score: 8 05/13/19 22 10:36 AM DISTRICT BRANCH MANAGER documented as of this encounter Care Teams Mash Tub Cooker Relationship Specialty Start Date End Date Jimmy Doyle DO [address] [place] [address] PCP - General FAMILY PRACTICE 08/19/20 documented as of this encounter
--- OUTSIDE RECORDS SUMMARY | 2024-06-03 12:05 | XMS_ITS | Patient Health Summary ---
Author Organization [facility] Address [address] [place] [address] Care Team Providers Care Construction Foreman Name Role Phone Unavailable Primary Care Provider Unavailabl e Note from [facility],non-owned Affiliates and Associated Physician Practices is amultiple site organization consisting of ambulatory clinics and hospital sitesin [place], [place], [place] and [place]. This disclosure is being madepursuant to the Care Everywhere program and may not contain all information available regarding this patient. Last updated 18.[facility] Social History Tobacco Use Types Packs/Day Years Used Date Smoking Tobacco: Never Assessed Sex and Gender Information Value Date Recorded Sex Assigned at Not on file Gender Identity Not on file Sexual Orientation Not on file Procedures * PATH CONSULT ON REFERRED CASE(Performed 01/28/2022) Performed for Illness, unspecified Results * PATH CONSULT ON REFERRED CASE (01/28/2022 10:46 AM CDT) Final Diagnosis URINE/VOIDED (OSC: [id number]; 01/25/2022): - Negative for high grade urothelial carcinoma 01/28/2022 12:22 PM T [facility] PATH[facility] LAB Microscopic Description and Comment Microscopic examination substantiates the final diagnosis. 01/28/2022 12:22 PM CDT [facility] Clinical History HEMATURIA 01/28/2022 12:22 PM [facility] PATH[facility] Materials Received One thin prep slide received from [facility] [id number]. All material will be returned. 01/28/2022 12:22 PM [facility] Disclaimer The performance characteristics of all immunohistochemical and indirect immunofluorescence stains (if any) cited in this report were determined by the Histopathology Laboratory of [facility]. Some of these tests were developed by [...] attending (teaching) pathologist. 01/28/2022 12:22 PM CDT [facility] Case Report Surgical Pathology Report Case: [id number] Authorizing Provider: Kathy Mason MD Collected: 01/28/2022 10:46 AM Ordering Location: [facility] Pathology Lab Received: 01/28/2022 10:51 AM Pathologist: Flaquito Bruno MD Specimen: Slide Consultation 01/28/2022 12:22 PM CDT [facility] Embedded Images 01/28/2022 12:22 PM CDT [facility] Pathology/Cytolo gy SURGICAL PATHOLOGY CONSULTATION AND REPORT ON REFERRED SLIDES PREPARED ELSEWHERE / Unknown 01/28/2022 10:46 AM CDT 01/28/2022 10:51 AM CDT Kathy Mason MD LAB - PATHOLOGY/CYTO LOGY ORDERABLES [facility] [address] [phone]
--- OUTSIDE RECORDS SUMMARY | 2024-06-03 12:05 | XMS_ITS | Encounter Summary ---
Author Organization [facility] Address [facility] [place] [address] Care Team Providers Care Finance Vice President Name Role Phone New Referring, Provider Primary Care Provider Un available Jimmy Doyle DO Primary Care Provider + Encounter Details Date Type Department Care Team (Latest Contact Info) Description 12/12/2017 Abstract [facility] , Farhana Aguilera MD Social History Tobacco Use Types Packs/Day Years Used Date Smoking Tobacco: Never Assessed Comments Unknown Sex and Gender Information Value Date Recorded Sex Assigned at Female 05/03/2024 9:57 AM SUPPORT TEACHER Legal Sex Female 4:45 PM CDT Gender Identity Female 05/03/2024 9:57 AM SUPPORT TEACHER Sexual Orientation Not on file documented as of this encounter Plan of Treatment Upcoming Encounters Date Type Department Care Team (Late st Contact Info) Description 08/01/2024 8:20 AM CDT Office Visit [facility] Family & Internal Medicine - [address] [phone] Jimmy Doyle DO [address] [place] [address] 08/31/2024 12:00 PM CDT Office Visit [facility] [phone] Abhi Aguilar MD [address] [place] [phone] documented as of this encounter Visit Diagnoses Not on filedocumented in this encounter Additional Health Concerns Infection Onset Date Last Indicated Resolved Time COVID-19 Rule Out 01/13/2022 01/13/2022 01/13/2022 9:32 AM CDT COVID-19 Rule Out 01/13/2022 01/13/2022 01/13/2022 9:59 AM CDT COVID-19 Rule Out 01/27/2023 01/27/2023 01/27/2023 11:28 AM CDT documented as of this encounter Care Teams Finance Vice President Relationship Specialty Start Date End Date New Referring, Provider PCP - General UNKNOWN PHYSICIAN SPECIALTY 01/25/18 08/18/20 Jimmy Doyle DO [address] [place] [id number] PCP - General FAMILY PRACTICE 08/19/20 documented as of this encounter
[2024-06-03 12:10] VITALS: BP 153/79; PULSE 78; RESP 20; TEMP 36.5; O2SAT 98
[2024-06-03 12:47] LABS: Bacteria Urine None Seen /hpf; Need Manual Microscopic Reviewed; Non Pathogenic Casts 0-2; RBC Urine >100 /hpf (0-2); Squamous Epithelial Cell Urine Moderate /hpf (Few); WBC Urine 21-50 /hpf (0-3)
[2024-06-03 12:48] LABS: Add Urine Microscopic? YES; Appearance Urine Turbid (Clear); Bilirubin Urine 1+ (Negative); Blood Urine 2+ (Negative); Color Urine Brown (Yellow); Glucose Urine UA Negative (Negative); Ketones Urine Negative (Negative); Leukocyte Esterase Ur 2+ LEU/UL (Negative); Nitrate Urine Positive (Negative); Protein Urine 2+ mg/dL (Negative); Urobilinogen Urine 0.2 mg/dL (<2.0)
--- NOTE | 2024-06-03 13:58 | PC.NURSE ---
Pt came to RN stating she was leaving. States I have seen people come and go and I still waiting. 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
--- OUTSIDE RECORDS SUMMARY | 2024-06-03 14:03 | XMS_ITS | Referral Summary ---
Author Organization [facility] Address [address] [place] [address] Care Team Providers Care University Lecturer Name Role Phone Unavailable Primary Care Provider Unavailabl e Source Comments [facility],non-owned Affiliates and Associated Physician Practices is amultiple site organization consisting of ambulatory clinics and hospital sitesin [place], [place], [place] and [place]. This disclosure is being madepursuant to the Care Everywhere program and may not contain all information available regarding this patient. Last updated 18.[facility] [employer] Social History Tobacco Use Types Packs/Day Years Used Date Smoking Tobacco: Never Assessed Sex and Gender Information Value Date Recorded Sex Assigned at Not on file Gender Identity Not on file Sexual Orientation Not on file Plan of Treatment Not on file
--- OUTSIDE RECORDS SUMMARY | 2024-06-03 14:03 | XMS_ITS | Patient Health Summary ---
Author Organization [facility] Address [address] [place] [address] Care Team Providers Care Tapeman Name Role Phone Unavailable Primary Care Provider Unavailabl e Note from [facility],non-owned Affiliates and Associated Physician Practices is amultiple site organization consisting of ambulatory clinics and hospital sitesin [place], [place], [place] and [place]. This disclosure is being madepursuant to the Care Everywhere program and may not contain all information available regarding this patient. Last updated 18.[facility] Social History Tobacco Use Types Packs/Day Years Used Date Smoking Tobacco: Never Assessed Sex and Gender Information Value Date Recorded Sex Assigned at Not on file Gender Identity Not on file Sexual Orientation Not on file Procedures * PATH CONSULT ON REFERRED CASE(Performed 01/28/2022) Performed for Illness, unspecified Results * PATH CONSULT ON REFERRED CASE (01/28/2022 10:46 AM CDT) Final Diagnosis URINE/VOIDED (OSC: [id number]; 01/25/2022): - Negative for high grade urothelial carcinoma 01/28/2022 12:22 PM T [facility] PATHOLOGY LAB Microscopic Description and Comment Microscopic examination substantiates the final diagnosis. 01/28/2022 12:22 PM CDT [facility] LAB Clinical History HEMATURIA 01/28/2022 12:[address] [facility] PATH[facility] Materials Received One thin prep slide received from [facility] [id number]. All material will be returned. 01/28/2022 12:[address] [facility] Disclaimer The performance characteristics of all immunohistochemical and indirect immunofluorescence stains (if any) cited in this report were determined by the Histopathology Laboratory of [facility]. Some of these tests were developed [...] LAB Case Report Surgical Pathology Report Case: [id number] Authorizing Provider: Kathy Mason MD Collected: 01/28/2022 10:46 AM Ordering Location: [facility] Lab Received: 01/28/2022 10:51 AM Pathologist: Flaquito Bruno MD Specimen: Slide Consultation 01/28/2022 12:22 PM CDT [facility] Embedded Images 01/28/2022 12:22 PM CDT [facility] PATH[facility] LAB Pathology/Cytolo gy SURGICAL PATHOLOGY CONSULTATION AND REPORT ON REFERRED SLIDES PREPARED ELSEWHERE / Unknown 01/28/2022 10:46 AM CDT 01/28/2022 10:51 AM CDT Kathy Mason MD LAB - PATHOLOGY/CYTO LOGY ORDERABLES [facility] [address] [phone]
--- OUTSIDE RECORDS SUMMARY | 2024-06-03 14:03 | XMS_ITS | Clinical Summary ---
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 Gender Identity Not on file Sexual Orientation [...] exists Zoster Vaccine Completed 04/06/2021, 01/27/2021 Insurance [place] [employer] [facility] MED[facility] Address: [address] [address] [place] [address] [employer] MED[employer]ARE SOLUTIONS MEDICARE SOLUTIONS [facility] Advance Directives For more information, please contact: [phone] * Full Code (Latest Code Status on File) Date Activated Date Inactivated Comments 02/09/2022 9:51 PM 02/12/2022 5:52 PM Care Teams Psychosocial Rehabilitation Counselor Relationship Specialty Start Date End Date Jimmy Doyle DO [address] [place] [id number] PCP - General Family Medicine 02/12/22 Derrell Varma MD [address] [place] [address] [address] Surgeon Surgery 02/12/22
--- OUTSIDE RECORDS SUMMARY | 2024-06-03 14:03 | XMS_ITS | Encounter Summary ---
Author Organization [facility] Address [address] [place] [address] Care Team Providers Care Medical Billing Specialist Name Role Phone Unavailable Primary Care Provider Unavailabl e Encounter Details Date Type Department Care Team (Late st Contact Info) Description 01/28/2022 Lab Requisition [facility] [address] [place] [address] Kathy Mason MD [address] [place], [place] [phone] Illness, unspecified Social History Tobacco Use Types [...] 10:46 AM CDT) Final Diagnosis URINE/VOIDED (OSC: [id number]; 01/25/2022): - Negative for high grade urothelial carcinoma 01/28/2022 12:22 PM CDT [facility] Microscopic Description and Comment Microscopic examination substantiates the final diagnosis. 01/28/2022 12:22 PM CDT [facility] Clinical History HEMATURIA 01/28/2022 12:22 PM CDT [facility] Materials Received One thin prep slide received from [facility] [id number]. All material will be returned. 01/28/2022 12:22 PM CDT [facility] Disclaimer The performance characteristics of all immunohistochemical and indirect immunofluorescence stains (if any) cited in this report were determined by the Histopathology Laboratory of [facility]. Some of these tests were developed [...] attending (teaching) pathologist. 01/28/2022 12:22 PM CDT [facility] Case Report Surgical Pathology Report Case: [id number] Authorizing Provider: Kathy Mason MD Collected: 01/28/2022 10:46 AM Ordering Location: [facility] Lab Received: 01/28/2022 10:51 AM Pathologist: Flaquito Bruno MD Specimen: Slide Consultation 01/28/2022 12:22 PM CDT [facility] Embedded Images 01/28/2022 12:22 PM CDT [facility] Pathology/Cytolo gy SURGICAL PATHOLOGY CONSULTATION AND REPORT ON REFERRED SLIDES PREPARED ELSEWHERE / Unknown 01/28/2022 10:46 AM CDT 01/28/2022 10:51 AM CDT Kathy Mason MD LAB - PATHOLOGY/CYTO LOGY ORDERABLES Performing Organization Address City/State/[facility] Co de Phone Number [facility] [address] [place], [place] [id number] [place] [address] documented in this encounter Visit Diagnoses Diagnosis Illness, unspecified documented in this encounter
--- OUTSIDE RECORDS SUMMARY | 2024-06-03 14:03 | XMS_ITS | Clinical Summary ---
Author Organization [facility] Address [address] [place] [address] Care Team Providers Care Gathering Machine Feeder Name Role Phone Unavailable Primary Care Provider Unavailabl e Source Comments [facility],non-owned Affiliates and Associated Physician Practices is amultiple site organization consisting of ambulatory clinics and hospital sitesin [place], [place], [place] and [place]. This disclosure is being madepursuant to the Care Everywhere program and may not contain all information available regarding this patient. Last updated 18.[facility] [employer] Social History Tobacco Use Types Packs/Day Years [...]
--- OUTSIDE RECORDS SUMMARY | 2024-06-03 14:03 | XMS_ITS | Referral Summary ---
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 Gender Identity Not on file Sexual Orientation [...] Treatment Not on file Insurance [employer] MEDICARE [employer] MEDICARE [employer] MEDICARE [facility] Address: [address] [address] [place] [address] [employer] Advance Directives For more information, please contact: [phone] * Full Code (Latest Code Status on File) Date Activated Date Inactivated Comments 02/09/2022 9:51 PM 02/12/2022 5:52 PM Care Teams Outside Repairer Special Relationship Specialty Start Date End Date Jimmy Doyle DO [address] [place] [address] PCP - General Family Medicine 02/12/22 Derrell Varma MD [address] [place] [address] [address] Surgeon Surgery 02/12/22
--- OUTSIDE RECORDS SUMMARY | 2024-06-03 14:03 | XMS_ITS | Encounter Summary ---
Author Organization [facility] Address [facility] [place] [address] Care Team Providers Care Test Development Engineer Name Role Phone New Referring, Provider Primary Care Provider Un available Jimmy Doyle DO Primary Care Provider + Encounter Details Date Type Department Care Team (Latest Contact Info) Description 12/12/2017 Abstract [facility] , Farhana Aguilera MD Social History Tobacco Use Types Packs/Day Years Used Date Smoking Tobacco: Never Assessed Comments Unknown Sex and Gender Information Value Date Recorded Sex Assigned at Female 05/03/2024 9:57 AM DIGITAL CONTENT COORDINATOR Legal Sex Female 4:45 PM CDT Gender Identity Female 05/03/2024 9:57 AM DIGITAL CONTENT COORDINATOR Sexual Orientation Not on file documented as of this encounter Plan of Treatment Upcoming Encounters Date Type Department Care Team (Late st Contact Info) Description 08/01/2024 8:20 AM CDT Office Visit [facility] Family & Internal Medicine - [address] [phone] Jimmy Doyle DO [address] [place] [address] 08/31/2024 12:00 PM CDT Office Visit [facility] [phone] Abhi Aguilar MD [address] [place] [phone] documented as of this encounter Visit Diagnoses Not on filedocumented in this encounter Additional Health Concerns Infection Onset Date Last Indicated Resolved Time COVID-19 Rule Out 01/13/2022 01/13/2022 01/13/2022 9:32 AM CDT COVID-19 Rule Out 01/13/2022 01/13/2022 01/13/2022 9:59 AM CDT COVID-19 Rule Out 01/27/2023 01/27/2023 01/27/2023 11:28 AM CDT documented as of this encounter Care Teams Test Development Engineer Relationship Specialty Start Date End Date New Referring, Provider PCP - General UNKNOWN PHYSICIAN SPECIALTY 01/25/18 08/18/20 Jimmy Doyle DO [address] [place] [id number] PCP - General FAMILY PRACTICE 08/19/20 documented as of this encounter
--- OUTSIDE RECORDS SUMMARY | 2024-06-03 14:04 | XMS_ITS | Clinical Summary ---
Author Organization [facility] Address [facility] [place] [address] Care Team Providers Care Electrical Inspector Name Role Phone Starla Arshad Vladimir QURESHI [...] Date Bipolar affective disorder, currently depressed, mild ([facility]) 05/03/2023 Sedative, hypnotic or anxiol ytic dependence, uncomplicated ([facility]) 03/25/2022 PAD (peripheral artery disease) 02/19/2022 Right iliac artery stenosis 02/19/2022 Allergies 07/31/2021 Right lower quadrant abdominal pain 07/31/2021 Tobacco abuse 07/31/2021 Radiculopathy, lumbar region 12/29/2020 Other intervertebral disc degeneration, lumbar r egion 12/29/2020 Spondylolisthesis of lumbar region 12/29/2020 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 10/01/2020 Degenerative [...] 08/18/2020 Nausea 08/18/2020 Nicotine dependence 08/18/2020 On intermission coordinator drug therapy 08/18/2020 Polyarthritis 08/18/2020 Postmenopausal status 08/18/2020 Primary osteoarthritis of left knee 08/18/2020 Triggering of digit 08/18/2020 Vitamin D deficiency 08/18/2020 Cerebrovascular accident ([facility]) 04/30 Body mass index (BMI) of 28.0 to 28.9 in adult 0 10/12/2018 Low back pain 10/12/2018 Muscle spasm 02/03/2018 Lumbar foraminal stenosis 01/17/2018 Bulging lumbar disc 01/16/2018 Hypertension 01/16/2018 GERD (gastroesophageal reflux disease) 8 Lumbar stenosis 01/16/2018 Osteoarthrosis 01/16/2018 Depressive disorder 01/16/2018 Chronic obstructive pulmonary disease ([facility]) 01/16/2018 Hyperlipidemia 01/16/2018 Resolved Problems Problem Noted Date Diagnosed Date Resolved Date Screening for breast cancer 08/18/2020 08/25/2020 Infiltrate of lung present on chest x-ray 08/18/2020 05/03/2024 Encounter for preventive health examination 02/13/2014 08/25/2020 Encounters Date Type Department Care Team Description 05/23/2024 Telephone [facility] Medical Group Family & Internal Medicine [address] [phone] Starla Arshad, Medication Request 05/22/2024 3:56 PM EVALUATOR - 05/22/2024 9:24 PM EVALUATOR Emergency [facility] [place] [address] Kathleen Lilly MD Urinary Symptoms; Dizziness Discharge Disposition: Home or Self Care (Routine Discharge) 05/22/2024 Travel 05/17/2024 Telephone [facility] Internal [address] [address] Starla Arshad, DO Information 05/16/2024 Scan [facility] SRV[facility] Scanned, Doc [facility] Group Lab (SCAN) 05/16/2024 Scan [facility] Scanned, [facility] Lab (SCAN); Image (SCAN); CT (SCAN) 05/16/[address] [phone] Starla Arshad, DO Advice 05/15/[address] [phone] Starla Arshad, DO Question 05/14/[address] [address] Starla Arshad, DO Medication Request 05/03/2024 9:40 AM EVALUATOR Office Visit [address] [phone] Starla Arshad, DO Spinal Stenosis (The patient presents for a 3 month follow up ) 05/03/[address] [address] Starla Arshad, DO Question 05/03/2024 Travel 04/20/2024 Scan [facility] Scanned, Doc Med Group 04/17/2024 Telephone [facility] Internal [place] [place] [address] Starla Arshad, DO Results 04/12/2024 Telephone [place] [address] [place] [address] Starla Arshad, DO Medication Request 04/04/2024 9:40 AM EVALUATOR Allied Health/Nurse Visit [facility] Internal [address] [phone] Starla Arshad, DO Allied Health Visit 04/04/2024 - 04/04/2024 11:59 PM EVALUATOR Hospital Encounter [facility]-[address] [address] Starla Arshad, DO Discharge Disposition: Home or Self Care (Routine Discharge) 04/04/2024 Travel 04/02/2024 Travel 04/02/[address] [address] Starla Arshad, DO Medication Request 04/02/[address] [address] Starla Arshad, DO Advice 03/26/2024 8:10 AM EVALUATOR - 03/26/2024 12:41 PM EVALUATOR Emergency [facility] [place] [address] Vin Vegas NP Urinary Symptoms Discharge Disposition: Home or Self Care (Routine Discharge) 03/26/2024 Travel 03/26/[address] [address] Starla Arshad, DO Urine 03/07/[address] [address] Starla Arshad, DO Advice 03/05/2024 Telephone [facility] Medical Group Family & Internal Medicine [address] [phone] Starla Arshad, DO Med Refills from Last [...] Given: Yes Comments:trying to quit. 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 Alcohol Use Standard Drinks/Week Comments Never [...] Sex Assigned at Female 05/03/2024 9:57 AM EVALUATOR Legal Sex Female 4:45 PM CDT Gender Identity Female 05/03/2024 9:57 AM EVALUATOR Sexual Orientation Not on file Last Filed Vital Signs Vital Sign Reading Time Taken Comments Blood Pressure 148/73 05/22/2024 8:59 PM EVALUATOR Pulse 70 05/22/2024 8:59 PM EVALUATOR Temperature 36.9 C (98.4 F) 05/22/2024 8:59 PM EVALUATOR Respiratory Rate 16 05/22/2024 8:59 PM EVALUATOR Oxygen Saturation 95% 05/22/2024 8:59 PM EVALUATOR Inhaled Oxygen Concentration - - Weight 67.3 kg (148 lb 5.9 oz) 05/22/2024 2:14 P M EVALUATOR Height 165.1 cm (5' 5 ) 05/22/2024 2:14 PM EVALUATOR Body Mass Index 24.69 05/22/2024 2:14 PM EVALUATOR Plan of Treatment Upcoming Encounters Date Type Department Care Team (Late st Contact Info) Description 08/01/2024 8:20 AM CDT Office Visit [facility] Medical Group Family & Internal Medicine - [address] [phone] [place] [address] [place] [phone] 08/31/2024 12:00 PM CDT Office Visit [facility] [phone] Abhi Aguilar MD [address] [place] [phone] Health Maintenance Due Date Last Done Comments [...] 01/16, 01/21/2022, Additional history exists PHQ-2 (Physician [place]) Completed 05/03/2024 Meningococcal B Vaccine Aged Out [...] independent in ADLs upon discharge from hospital [facility] Daysi Nayak RN Procedures Procedure Name Priority Date/Time Associated Diagnosis Comments ECG 12-LEAD Routine 05/22/2024 4:19 PM EVALUATOR TROPONIN, QUANT STAT 05/22/2024 4:08 PM EVALUATOR COMPREHENSIVE METABOLIC PANEL STAT 05/22/2024 4:08 PM EVALUATOR CBC W/DIFF AUTOMATED STAT 05/22/2024 4:08 PM EVALUATOR URINE BACTERIA CULTURE STAT 3:19 PM EVALUATOR HC URINALYSIS AUTO W/O MICRO STAT 05/22/2024 3:19 PM EVALUATOR XR CHEST PORTABLE STAT 05/22/2024 3:[address] GENERIC 05/16/2024 CT GENERIC 05/16/2024 OUTSIDE LAB COVID-19 (SCAN ORDER) Routine 05/16/2024 OUTSIDE LAB (SCAN ORDER) 05/16/2024 OUTSIDE LAB (SCAN ORDER) 05/16/2024 OUTSIDE LAB (SCAN ORDER) 05/16/2024 OUTSIDE LAB (SCAN ORDER) 05/16/2024 OUTSIDE LAB (SCAN ORDER) 05/16/2024 OUTSIDE LAB (SCAN ORDER) 05/16/2024 OUTSIDE LAB (SCAN ORDER) 05/16/2024 IMAGE GENERIC 05/16/2024 IMAGE GENERIC 05/16/2024 MG/PCCL UDS W CONF Routine 05/03/2024 9: 46 AM EVALUATOR Encounter for long-term (current) use of medications URINE BACTERIA CULTURE Routine 10:08 AM EVALUATOR Gross hematuria Proteinuria, unspecified type URINALYSIS MICRO ONLY Routine 04/04/2024 10:08 AM EVALUATOR Gross hematuria Proteinuria, unspecified type URINALYSIS AUTO DIP Routine 04/04/[address] ABD+PEL KIDNEY STONE STAT 03/26/2024 9:47 AM EVALUATOR URINE BACTERIA CULTURE STAT 9:41 AM EVALUATOR CK (CPK) STAT 03/26/2024 9:37 AM EVALUATOR COMPREHENSIVE METABOLIC PANEL STAT 03/26/2024 9:37 AM EVALUATOR CBC W/DIFF AUTOMATED STAT 03/26/2024 9:37 AM EVALUATOR HC URINALYSIS AUTO W/O MICRO STAT 03/26/2024 8:04 AM EVALUATOR LIPID PANEL Routine 04/05/2023 8:24 AM EVALUATOR Primary hypertension Screening for lipid disorders Screening for endocrine, metabolic and immunity disorder Annual physical exam HEPATITIS C ANTIBODY Routine 04/05/2023 8:24 AM EVALUATOR Primary hypertension Screening for lipid disorders Screening for endocrine, metabolic and immunity disorder Annual physical exam Need for hepatitis C screening test MG DIAG W WILMER BILAT DIGI Routine 09/09/2020 12:14 PM CDT Breast lump on left side at 10 o'clock position from Last 3 Months or Most Recently Relevant to Health Maintenance Results * ECG 12 lead (05/22/2024 4:19 PM EVALUATOR) 05/22/2024 4:19 PM EVALUATOR Narrative [facility] [place] ([facility]) RAD - 05/22/2024 11:53 PM EVALUATOR [place] [address] Test Date: 2024-05-22 Pat Name: DANNY WELLER Department: 41 Room: [place] Gender: Female Assembler Billiard Table: [id number] : 1955 Requested By: VIN VEGAS Order Number: [id number] Reading MD: Chuy Dowell Measurements Intervals [place] Rate: 70 P: 68 SC: 185 QRS: 69 QRSD: 94 T: 41 QT: 385 QTc: 416 Interpretive Statements SINUS RHYTHM NONSPECIFIC T-WAVE ABNORMALITY Compared to ECG 04/01/2023 11:55:20 T-wave abnormality now present UATOR Procedure Note Chuy Dowell MD - 05/22/2024 [place] [address] [address] [place] Test Date: 2024-05-22 Pat Name: DANNY WELLER Department: 41 Room: [place] Gender: Female Assembler Billiard Table: [id number] : 1955 Requested By: VIN VEGAS Order Number: [id number] Reading MD: Chuy Dowell Measurements Intervals [place] Rate: 70 P: 68 SC: 185 QRS: 69 QRSD: 94 T: 41 QT: 385 QTc: 416 Interpretive Statements SINUS RHYTHM NONSPECIFIC T-WAVE ABNORMALITY Compared to ECG 04/01/2023 11:55:20 T-wave abnormality now present UATOR us Vin Vegas ENTERTAINMENT & MEDIA CORRESPONDENT ECG ORDERABLES Final Result [facility] ([facility]) RAD * (ABNORMAL) COMPREHENSIVE METABOLIC PANEL (05/22/2024 4:08 PM EVALUATOR) Only the most recent of2 resultswithin the time period is included. GLUCOSE 102(H) 70 - 99 MG/DL 05/22/2024 5:11 PM EVALUATOR [facility] BUN 13 7 - 18 MG/DL 05/22/2024 5:11 PM [facility] CREATININE S/P/B 0.61 0.55 - 1.02 MG/DL 05/22/2024 5:11 PM EVALUATOR [facility] SODIUM S/P/B 137 136 - 145 MMOL/L 05/22/2024 5:11 PM EVALUATOR [facility] POTASSIUM S/P/B 3.8 3.5 - 5.1 MMOL/L 05/22/2024 5:11 PM [facility] CHLORIDE S/P/B 106 97 - 115 MMOL/L 05/22/2024 5:11 PM EVALUATOR [facility] CO2 30.6 21 - 32 MMOL/L 05/22/2024 5:11 PM [facility] CALCIUM S/P/B 9.4 8.5 - 10.1 MG/DL 05/22/2024 5:11 PM [facility] BILIRUBIN TOTAL S/P/B 0.4 0.2 - 1.2 MG/DL 05/22/2024 5:11 PM [facility] Comment: THIS ASSAY IS NOT RECOMMENDED FOR PATIENTS UNDERGOING TREATMENT WITH ELTROMBOPAG DUE TO THE POTENTIAL FOR FALSELY ELEVATED RESULTS. TOTAL PROTEIN S/P/B 7.7 6.4 - 8.2 G/DL 05/22/2024 5:11 PM [facility] ALBUMIN S/P/B 3.7 3.4 - 5.0 G/DL 05/22/2024 5:11 PM [facility] AST 14(L) 15 - 37 U/L 05/22/2024 5:11 PM [facility] ALT 17 14 - 55 U/L 05/22/2024 5:11 PM [facility] ALKALINE PHOSPHATASE S/P/B 65 50 - 136 U/L 05/22/2024 5:11 PM [facility] ANION GAP 0.4(L) 2 - 10 MMOL/L 05/22/2024 5:11 PM [facility] BUN CREATININE RATIO 21.2 6 - 26 05/22/2024 5:11 PM [facility] A/G RATIO 0.9(L) 1.0 - 2.0 RATIO 05/22/2024 5:11 PM [facility] GFR ESTIMATE >90 >90 ML/MIN/1.7 3 M2 05/22/2024 5:11 PM [facility] Comment: NOTE: eGFR is not calculated for patients <18 years of age or gender unknown. This is an estimated GFR calculation using the new CKD EPI creatinine equation without race and so does not require a correction factor for race. This estimated GFR should not be used for calculating drug doses. 05/22/2024 4:08 PM EVALUATOR Vin Vegas NP LABORATORY Final Result [facility] [address] [place] [address], * (ABNORMAL) CBC W/DIFF AUTOMATED (05/22/2024 4:08 PM EVALUATOR) Only the most recent of2 resultswithin the time period is included. WBC 7.30 4.5 - 11.0 x10'3/uL 05/22/2024 4:44 PM EVALUATOR [facility] RBC 4.29 4.20 - 5.40 x10'6/uL 05/22/2024 4:44 PM EVALUATOR [facility] HGB 13.8 12.0 - 16.0 G/DL 05/22/2024 4:44 PM [facility] HCT 39.3 38.0 - 48.0 % 05/22/2024 4:44 PM EVALUATOR [facility] MCV 91.6 81.0 - 99.0 FL 05/22/2024 4:44 PM EVALUATOR [facility] MCH 32.2(H) 27.0 - 31.0 PG 05/22/2024 4:44 PM EVALUATOR [facility] MCHC 35.1 32.0 - 36.0 G/DL 05/22/2024 4:44 PM [facility] RDW 12.7 11.5 - 14.5 % 05/22/2024 4:44 PM [facility] PLT 284 130 - 400 x10'3/uL 05/22/2024 4:44 PM [facility] MPV 9.1(L) 9.3 - 12.2 FL 05/22/2024 4:44 PM [facility] DIFFERENTIAL TYPE AUTOMATED DIFFERENTIAL 05/22/2024 4:44 PM [facility] NEUTROPHILS % 44.9 % 05/22/2024 4:44 PM [facility] LYMPHOCYTES % 37.8 % 05/22/2024 4:44 PM [facility] MONOCYTES % 9.6 % 05/22/2024 4:44 PM [facility] EOSINOPHILS 6.3 % 05/22/2024 4:44 PM [facility] BASOPHILS 1.1 % 05/22/2024 4:44 PM [facility] IMMATURE GRANS % 0.3 % 05/22/19 4:44 PM [facility] ABS. NEUTROPHILS 3.28 1.80 - 7.70 x10'3/uL 05/22/2024 4:44 PM [facility] ABS. LYMPHOCYTES 2.76 1.00 - 4.80 x10'3/uL 05/22/2024 4:44 PM [facility] ABS. MONOCYTES 0.70 0.24 - 0.86 x10'3/uL 05/22/2024 4:44 PM EVALUATOR [facility] ABS. EOSINOPHILS 0.46(H) 0.04 - 0.36 x10'3/uL 05/22/2024 4:44 PM [facility] ABS. BASOPHILS 0.08 0.01 - 0.08 x10'3/uL 05/22/2024 4:44 PM [facility] ABS. IMMATURE GRANULOCYTES 0.02 0.00 - 0.49 x10'3/uL 05/22/2024 4:44 PM EVALUATOR [facility] 05/22/2024 4:08 PM EVALUATOR Vin Orantesace ENTERTAINMENT & MEDIA CORRESPONDENT LABORATORY Final Result Performing Organization Address [facility]/ZIP Co de Phone Number [facility] [address] [place] [address], * TROPONIN, QUANT (05/22/2024 4:08 PM EVALUATOR) [facility] TROPONIN I HIGH SENSITIVITY <3 <54 ng/L 05/22/2024 5:11 PM EVALUATOR [facility] Comment: HIGH DOSES OF BIOTIN, TROPONIN-SPECIFIC AUTOANTIBODIES, AND ANTIBODY THERAPY CONTAINING HAMA MAY INTERFERE WITH THIS TEST RESULT. CORRELATION TO CLINICAL HISTORY AND PRESENTATION RECOMMENDED. 05/22/2024 4:0 8 PM EVALUATOR Vin Breen Vegas ENTERTAINMENT & MEDIA CORRESPONDENT LABORATORY Final Result Performing Organization Address [facility] Co de Phone Number [facility] [address] [place] [address], * (ABNORMAL) URINALYSIS (05/22/2024 3:19 PM EVALUATOR) Only the most recent of2 resultswithin the time period is included. Pathologist [facility] SPECIMEN TYPE URINE CLEAN CATCH 05/22/2024 3:22 PM EVALUATOR [facility] COLOR (U) LIGHT ORANGE 05/22/2024 3:33 PM EVALUATOR [facility] TRANSPARENCY TURBID 05/22/2024 3:33 PM EVALUATOR [facility] SPECIFIC GRAVITY (U) 1.013 1.001 - 1.030 05/22/2024 3:33 PM EVALUATOR [facility] U PH 6.5 5.0 - 9.0 05/22/2024 3:33 PM EVALUATOR [facility] LEUKOCYTES (U) 25(A) NEGATIVE 05/22/2024 3:33 PM EVALUATOR [facility] NITRITES NEGATIVE NEGATIVE 05/22/2024 3:33 PM EVALUATOR [facility] PROTEIN RANDOM (U) 20 <30 MG/DL 05/22/2024 3:33 PM EVALUATOR [facility] GLUCOSE (U) NORMAL NORMAL MG/DL 05/22/2024 3:33 PM EVALUATOR [facility] KETONES MG/DL (U) NEGATIVE NEGATIVE MG/DL 05/22/2024 3:33 PM EVALUATOR [facility] UROBILINOGEN NORMAL NORMAL MG/DL 05/22/2024 3:33 PM EVALUATOR [facility] BILIRUBIN (U) NEGATIVE NEGATIVE MG/DL 05/22/2024 3:33 PM EVALUATOR [facility] BLOOD (U) 3+(A) NEGATIVE 05/22/2024 3:33 PM EVALUATOR [facility] WBC/HPF 88(H) <6 /HPF 05/22/2024 3:33 PM EVALUATOR [facility] RBC/HPF >100(H) <6 /HPF 05/22/2024 3:33 PM EVALUATOR [facility] BUDDING YEAST RARE(A) NONE /HPF 05/22/2024 3:33 PM EVALUATOR [facility] SQUAMOUS EPITHELIALS RARE /HPF 05/22/2024 3:33 PM EVALUATOR [facility] URINE SPECIMEN OBTAINED BY CLEAN CATCH PROCEDURE / Unknown 05/22/2024 3:19 PM EVALUATOR us Vin Vegas NP URINE ORDERABLES Final Result [facility] [address] [place] [address], [place] [phone] * CULTURE URINE (05/22/2024 3:19 PM EVALUATOR) Only the most recent of3 resultswithin the time period is included. SPEC DESCRIPTION URINE CLEAN CATCH 05/22/2024 3:21 PM EVALUATOR [facility] SPECIAL REQUESTS NO SPECIAL REQUEST 05/22/2024 3:21 PM EVALUATOR [facility] CULTURE RESULT NO GROWTH 2 DAYS 05/24/2024 6:42 AM EVALUATOR [facility] URINE SPECIMEN OBTAINED BY CLEAN CATCH PROCEDURE / Unknown 05/22/2024 3:19 PM EVALUATOR 05/22/2024 3:23 PM EVALUATOR us Vin Vegas ENTERTAINMENT & MEDIA CORRESPONDENT MICROBIOLOGY - GENERAL ORDERAB LES Final Result Performing Organization Address City/State/[facility] Co de Phone Number [facility] [address] [place] [address], [place] [phone] * XR CHEST PORTABLE (05/22/2024 3:02 PM EVALUATOR) Anatomical Region Laterality Modality Chest Radiographic Nuris ging 05/22/2024 3:04 PM EVALUATOR Impressions 05/22/2024 3:05 PM EVALUATOR Impression: Unremarkable one view chest; no radiographic evidence of acute/active cardiopulmonary disease Ordered By: VIN VEGAS Interpreted By: Lisa Edwards MD, 05/22/2024 3:04 PM Narrative 05/22/2024 3:05 PM EVALUATOR [facility] [address] [place], [place] [address] Examination: Chest x-ray 1 view Exam date/time: [...] Procedure Note Lisa Edwards MD - 05/22/2024 [facility] [address] [place], [place] [address] Examination: Chest x-ray 1 view Exam date/time: [...] Edwards MD, 05/22/2024 3:04 PM Vin Vegas ENTERTAINMENT & MEDIA CORRESPONDENT GENERAL IMAGING Final Result * OUTSIDE LAB COVID-19 (05/16/2024) CORONAVIRUS SARS COV 2 PCR (RESP) NOT DETECTED NOT DETECTED [facility] ONBASE 05/16/2024 [facility] Scanned SCANNING Final Resu lt [facility] ONBASE * CT GENERIC (05/16/2024) Only the most recent of2 resultswithin the time period is included. Anatomical Region Laterality Modality Other 05/16/2024 [facility] Scanned SCANNING Final Resu lt * OUTSIDE LAB (SCAN ORDER) (05/16/2024) Only the most recent of7 resultswithin the time period is included. 05/16/2024 [facility] Scanned SCANNING Final Resu lt * IMAGE GENERIC (05/16/2024) Only the most recent of2 resultswithin the time period is included. Anatomical Region Laterality Modality Other 05/16/2024 Result [facility] Scanned SCANNING Final Resu lt * (ABNORMAL) MG/PCCL UDS W CONF (05/03/2024 9:46 AM EVALUATOR) RESULT SUMMARY [facility] Comment: Prescribed Prescribed Not Prescribed Consistent Inconsistent Inconsistent Hydrocodone Marijuana Metabolite Xanax(TM) PRESCRIBED DRUG 1 (U) Xanax(TM) [facility] PRESCRIBED DRUG 2 (U) Hydrocodone [facility] [employer] [facility] [place] SCREEN (U) NEGATIVE <0.5 ng/mL [...] PM (U) 518(H) <25 ng/mL [facility] [place] [facility] ALPHAHYDROXYALPRAZOLAM PM MEDMATCH (U) CONSISTENT [facility] [place] [facility] MIDAZOLAM PM (U) NEGATIVE <50 ng/mL [facility] [place] [facility] ALPHAHYDROXYTRIAZOLAM PM (U) NEGATIVE <50 ng/mL [facility] [place] [facility] AMINOCLONAZEPAM PM (U) INTERFERENCE( A) <25 ng/mL [facility] [place] Comment: See Note A See Note A OH ET FLURAZEPAM PM (U) NEGATIVE <50 ng/mL [facility] [place] [facility] LORAZEPAM PM (U) NEGATIVE <50 ng/mL [facility] [place] [facility] NORDIAZEPAM PM (U) NEGATIVE <50 ng/mL [facility] [place] [facility] OXAZEPAM PM (U) NEGATIVE <50 ng/mL [facility] [place] [facility] TEMAZEPAM PM NEGATIVE <50 ng/mL [facility] [place] BENZODIAZEPINES COMMENTS [facility] [place] Comment:See Benzodiazepines Notes, LDT Notes COCAINE METABOLITE PM (U) NEGATIVE <150 ng/mL [facility] [place] [facility] MARIJUANA METABOLITE PM (U) POSITIVE(A) <20 ng/mL [facility] [place] MARIJUANA METABOLITE PM CONF (U) 221(H) <5 ng/mL [facility] [place] MARIJUANA METAB PM MM CONF (U) INCONSISTENT( A) [facility] [place] MARIJUANA COMMENTS [facility] [place] Comment:See Marijuana Notes, LDT Notes METHADONE PM (U) NEGATIVE <100 ng/mL [facility] [place] OPIATES PM (U) POSITIVE(A) <100 ng/mL [facility] [place] [facility] CODEINE PM (U) NEGATIVE <50 ng/mL [facility] [place] [facility] HYDROCODONE PM (U) 1,518(H) <50 ng/mL [facility] [place] [facility] HYDROCODONE PM MEDMATCH (U) CONSISTENT [facility] [place] [facility] HYDROMORPHONE PM (U) 391(H) <50 ng/mL [facility] [place] HYDROMORPHONE PM MEDMATCH CONSISTENT [facility] [place] [facility] MORPHINE PM (U) NEGATIVE <50 ng/mL [facility] [place] [facility] NORHYDROCODONE PM (U) 4,279(H) <50 ng/mL [facility] [place] [facility] NORHYDROCODONE PM MM (U) CONSISTENT [facility] [place] [facility] OPIATES COMMENTS [facility] [place] Comment:See Opiates Notes, L DT Notes OXYCODONE PM (U) NEGATIVE <100 ng/mL [facility] CREATININE RANDOM (U) 136.4 > or = 20.0 mg/dL [facility] pH PM (U) 7.5 4.5 - 9.0 [facility] OXIDANT NEGATIVE <200 mcg/mL [facility] NOTE [facility] Comment: This drug testing is for [...] analytical performance characteristics have been determined by [facility]. It has not been cleared or approved by the FDA. This assay has been validated pursuant to the CLIA regulations and is used for clinical purposes. medMATCH(R) enables providers to identify if drug use is consistent or inconsistent with a corresponding prescribed medication(s) list. Healthcare Providers needing Interpretation assistance, please contact us at [phone] ( ) M-F, 8am to 10pm EST URINE SPECIMEN / Unknown 05/03/2024 9:46 AM EVALUATOR 05/04/2024 10:38 PM EVALUATOR Narrative Resulting Agency Comment Performing Organization Information: Site ID: [id number] [facility] Address: [address] [place] [id number] Director: Shon Moe Site ID: [id number] Name: [facility] Address: [address] [place] [address] Director: Suman Paiz MD Starla Arshad DO URINE ORDERABLES Final R esult Performing Organization Address City/[facility]/ZIP Co de Phone Number [facility] [address] [facility] [place] [address], [facility] [place] [address] [place] [address] * (ABNORMAL) URINALYSIS MICRO ONLY (04/04/2024 10:08 AM EVALUATOR) Pathologist [facility] RBC/HPF PACKED(A) 0 - 3 /HPF 04/04/2024 3:07 PM EVALUATOR [facility] WBC/HPF 0-3 0 - 3 /HPF 04/04/2024 3:07 PM EVALUATOR [facility] EPI/HPF 0-3 /HPF 04/04/2024 3:07 PM EVALUATOR [facility] BACTERIA (U) TRACE(A) NONE SEEN 04/04/2024 3:07 PM EVALUATOR [facility] URINE SPECIMEN OBTAINED BY CLEAN CATCH PROCEDURE / Unknown 04/04/2024 10:08 AM EVALUATOR Starla Arshad DO URINE ORDERABLES Final R esult Performing Organization Address [facility] [facility] Co de Phone Number [facility] [address] [place] [address], * (ABNORMAL) URINALYSIS AUTO DIP (04/04/2024) COLOR (U) RED(A) YELLOW [facility] TRANSPARENCY CLOUDY(A) CLEAR [facility] GLUCOSE (U) NEGATIVE NEGATIVE MG/DL [facility] BILIRUBIN (U) 1+ (SMALL)(A) NEGATIVE [facility] KETONES MG/DL (U) NEGATIVE NEGATIVE MG/DL [facility] SPECIFIC GRAVITY (U) 1.020 1.001 - 1.035 [facility] BLOOD (U) LARGE (3+ Hemolyzed, About 250 rbc/uL)(A) NEGATIVE [facility] U PH 6.5 5.0 - 9.0 [facility] PROTEIN (U) 2+ (100)(A) NEGATIVE mg/dL [facility] UROBILINOGEN 0.2 0.2 - 1.0 EU/dL = mg/dL [facility] NITRITES NEGATIVE NEGATIVE MG/DL [facility] LEUKOCYTES (U) NEGATIVE NEGATIVE [facility] URINE SPECIMEN OBTAINED BY CLEAN CATCH PROCEDURE / Unknown 04/04/2024 us Starla Arshad DO URINE ORDERABLES Final R esult [facility] [address] [place] [address], [place] * CT ABD+PEL KIDNEY STONE (03/26/2024 9:47 AM EVALUATOR) Anatomical Region Laterality Modality Abdomen Computed Tomogra phy 03/26/2024 9:50 AM EVALUATOR Impressions 03/26/2024 10:19 AM EVALUATOR IMPRESSION: 1. Bilateral renal tiny nonobstructing nephrolithiasis [...] 03/26/2024 9:50 AM Narrative 03/26/2024 10:19 AM EVALUATOR [facility] [place] [address] Exam: CT abdomen and pelvis without contrast [...] Procedure Note Lisa Edwards MD - 03/26/[address] [address] Exam: CT abdomen and pelvis without contrast [...] Result * CK (CPK) (03/26/2024 9:37 AM EVALUATOR) CPK 84 21 - 215 U/L 03/26/2024 11:39 AM EVALUATOR [facility] 03/26/2024 9:37 AM EVALUATOR [place] [facility] Final Result [facility] [address] [place] [address], [place] [phone] * (ABNORMAL) LIPID PANEL (04/05/2023 8:24 AM EVALUATOR) CHOLESTEROL 135 <200 MG/DL 04/05/2023 4:46 PM EVALUATOR [facility] TRIGLYCERIDES 127 <150 MG/DL 04/05/2023 4:46 PM EVALUATOR [facility] HDL 37(L) >40 MG/DL 04/05/2023 4:46 PM EVALUATOR [facility] LDL-C 73 <100 MG/DL 04/05/2023 4:46 PM EVALUATOR [facility] VLDL CALCULATION 25 5 - 28 MG/DL 04/05/2023 4:46 PM EVALUATOR [facility] CHOL/HDL RATIO 3.6 0.0 - 4.0 04/05/2023 4:46 PM EVALUATOR [facility] LDL/HDL 2.0 0.41 - 2.13 04/05/2023 4:46 PM EVALUATOR [facility] NON HDL CHOLESTEROL 98 <140 MG/DL 04/05/2023 4:46 PM EVALUATOR [facility] 04/05/2023 8:24 AM EVALUATOR Starla Arshad DO LABORATORY Final Re sult [facility] [address] [place] [address], [place] [phone] * HEPATITIS C ANTIBODY (04/05/2023 8:24 AM EVALUATOR) HEPATITIS C AB NON-REACTI VE NON-REACT RAUL 04/05/2023 6:53 PM EVALUATOR [facility] Comment: ANTIBODIES TO HCV NOT DETECTED. DOES NOT EXCLUDE THE POSSIBILITY OF EXPOSURE TO HCV. 04/05/2023 8:24 AM EVALUATOR Starla Arshad DO LABORATORY Final Re sult [facility] [address] [place] [address], [id number] * MG DIAG W WILMER BILAT DIGI [...] Examination: Bilateral digital diagnostic mammogram with CAD. [id number] Clinical history: Left breast lump and tenderness. [...] demonstrate any discrete solid or cystic mass. [place] appearing tissue architecture is demonstrated. Physical exam surveillance is advised with any further evaluation at this point guided on that basis. From a mammographic standpoint, routine follow-up in one year would seem adequate. These findings were discussed with the patient. us Starla Arshad DO MAMMO Final Re sult from Last 3 Months or Most Recently Relevant to Health Maintenance Insurance [facility] MEDICAID Advance Directives * Full Code (Latest Code Status on File) Date Activated Date Inactivated Comments 09/22/2020 12:40 PM 09/23/2020 12:52 PM Care Teams Electrical Inspector Relationship Specialty Start Date End Date [facility] Starla P, DO [address] [place] [address] PCP - General FAMILY PRACTICE 08/19/20
--- OUTSIDE RECORDS SUMMARY | 2024-06-03 14:04 | XMS_ITS | Continuity of Care Document ---
Author Organization [facility] Address [address] [place] [address] [address] [place] [address] Phone Care Team Providers Care Carbon Sequestration Plant Engineer Name Role Phone Idris PT, KEYON, Ave Unavailable Unavailable Procedures Procedure Date Therapeutic Exercise Therapeutic Activities Neuromuscular Re-Ed Hot or Cold Pack Therapeutic Activities Neuromuscular Re-Ed PT Evaluation Low Complexity Advance Directives Directive Yes / No Effective Date File Name No Information Encounters Encounter Description Practice Location Reason(s) For Visit Diagnoses Date Provider Providers Copied on Encounter [facility] [address], [id number], tel:[phone] [place] No Information Sep-0 [address] [facility] [address] [place] [address], [id number], tel:[phone] [place] No Information Sep-0 2- 1 Idris Dorado. . Referring Provider: Jimmy Doyle , [address] [place] [address], [address]. tel:[phone], [id number], tel:[phone] [place] No Information Nov-3 0-202 1 Idris Dorado. . Referring Provider: Jimmy Doyle , [address] [place] [address], [address]. tel:[phone] Family History Family Member Type Diagnosis Age At Onset No Information Payers Payer name Insurance type Covered democrat ID Authorcesiliapauline jamietristian(s) Medicare [place] MB [id number] Medicaid OON Write Off CI 00 Social [...]
--- OUTSIDE RECORDS SUMMARY | 2024-06-03 14:04 | XMS_ITS | Encounter Summary ---
Author Organization [facility] Address [facility] [place] [address] Care Team Providers Care Contact Center Engineer Name Role Phone Jimmy Doyle Primary Care Provider + Encounter Details Date Type Department Care Team (Late st Contact Info) Description 01/11/2022 Abstract [facility] [address] Doni Moore MA Social History Tobacco Use Types Packs/Day Years Used Date Smoking Tobacco: Every Day Cigarettes 1 54.8 Started: 08/19/1969 Smokeless Tobacco: Never Comments:trying to quit. 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 Alcohol Use Standard Drinks/Week Comments Never [...] Sex Assigned at Female 05/03/2024 9:57 AM FIELD MARKETING COORDINATOR Legal Sex Female 4:45 PM CDT Gender Identity Female 05/03/2024 9:57 AM FIELD MARKETING COORDINATOR Sexual Orientation Not on file COVID-19 Exposure [...] Description 08/01/2024 8:20 AM CDT Office Visit [facility] Family & Internal Medicine - [address] [phone] Jimmy Doyle DO [address] [place] [address] 08/31/2024 12:00 PM CDT Office Visit [facility] [phone] Abhi Aguilar MD [address] [place] [phone] (work) documented as of this encounter Goals Goal Patient Goal Type Associated Problems Recent Progress Patient-Stated? Author Patient will return to prior living situation and remain independent in ADLs upon discharge from [facility] Daysi Nayak RN documented as of this [...] Total Score: 8 05/13/19 22 10:36 AM FIELD MARKETING COORDINATOR documented as of this encounter Care Teams Contact Center Engineer Relationship Specialty Start Date End Date Jimmy Doyle DO [address] [place] [address] PCP - General FAMILY PRACTICE 08/19/20 documented as of this encounter
--- OUTSIDE RECORDS SUMMARY | 2024-06-03 14:04 | XMS_ITS | Encounter Summary ---
Author Organization [facility] Address [facility] [place] [address] Care Team Providers Care Information Systems Security Manager Name Role Phone Jimmy Doyle DO Primary Care Provider + Encounter Details Date Type Department Care Team (Late st Contact Info) Description 06/23/2022 Prep for Procedure [facility] THREE [facility], [facility] [address] [place], [place] [id number] Flaquito Valera MD Three [facility]. [facility] [address] [place], [place] [id number] Social History Tobacco Use Types Packs/Day Years Used Date Smoking Tobacco: Every Day Cigarettes 1 54.8 Started: 08/19/1967 Smokeless Tobacco: Never Comments:trying to quit. 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 No / Unsure 06/24/2022 12:41 PM ANTI AIR WARFARE OPERATIONS OFFICER documented as of this encounter Functional Status [...] Description 08/01/2024 8:20 AM CDT Office Visit [facility] Family & Internal Medicine - [address] [phone] Jimmy Doyle, [address] [place] [address] 08/31/2024 12:00 PM CDT Office Visit [facility] [phone] Abhi Aguilar MD [address] [place] [address] [address] [place] [address] documented as of this encounter Goals Goal [...] Total Score: 8 05/13/19 22 10:36 AM ANTI AIR WARFARE OPERATIONS OFFICER documented as of this encounter Care Teams Information Systems Security Manager Relationship Specialty Start Date End Date Jimmy Doyle DO [address] [place] [address] PCP - General FAMILY PRACTICE 08/19/20 documented as of this encounter
== END 2024-06-03 13:58 | disposition left against medical advice (07) ==
PROVIDERS: Emergency Medicine; PCP Student in an Organized Health Care Education/Training Program
DX: R31.9 Hematuria, unspecified (principal)
CPT/HCPCS: 81001; 87086; 87186; 99199

== ENCOUNTER 2024-06-21 11:35 | Outpatient (CLI) | payer MEDICARE, MEDICAID, SELFPAY ==
--- NOTE | 2024-06-21 11:30 | ECG_ITS ---
Test Date: 2024-06-21 11:54:52 Measurements Intervals Allen Rate: 69 P: 68 NE: 193 QRS: 69 QRSD: 90 T: 37 QT: 386 QTc: 414 Interpretive Statements SINUS RHYTHM No previous ECG available for comparison Electronically Signed On 06-21-2024 14:08:06 PAPER HANGER by Jamaal Moran M.D.
--- OUTSIDE RECORDS SUMMARY | 2024-06-21 13:13 | XMS_ITS | Encounter Summary ---
Author Organization [facility] Address [facility] [place] [address] Care Team Providers Care Upward Bound Director Name Role Phone Jimmy Doyle DO Primary Care Provider + Encounter Details Date Type Department Care Team (Late st Contact Info) Description 06/23/2022 Prep for Procedure [facility] THREE [facility], [facility] [address] [place], [place] [phone] Flaquito Valera MD Three [facility]. [facility] [address] [place], [place] [id number] Social History Tobacco Use Types Packs/Day Years Used Date Smoking Tobacco: Every Day Cigarettes 1 54.8 Started: 08/19/1969 Smokeless Tobacco: Never Comments:trying to quit. 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 No / Unsure 06/24/2022 12:41 PM COMPUTING SYSTEMS MECHANIC documented as of this encounter Functional Status [...] Status No 09/21/2020 1:00 PM CDT Meryl Carl RN Active * Do you have difficulty dressing or bathing? Answer Date of Assessment Author Status No 09/21/2020 1:00 PM CDT Meryl Carl RN Active * Because of a physical, mental, or emotional condition, do you have difficulty doing errands alone such as visiting a doctor's office or shopping? Answer Date of Assessment Author Status No 09/21/2020 1:00 PM CDT Meryl Carl RN Active documented as of this encounter Mental Status * Because of a physical, mental, or emotional condition, do you have serious difficulty concentrating, remembering, or making decisions? Answer Entry Date Author Status No 09/21/2020 1:00 PM CDT Meryl Carl RN Active documented in this encounter Plan of Treatment Upcoming Encounters Date Type Department Care Team (Late st Contact Info) Description 08/01/2024 8:20 AM CDT Office Visit [facility] Family & Internal Medicine - [address] [phone] Jimmy Doyle, [address] [place] [address] 08/31/2024 12:00 PM CDT Office Visit [facility] [phone] Abhi Aguilar MD [address] [place] [address] [address] [place] [address] documented as of this encounter Goals Goal [...] Total Score: 8 05/13/19 22 10:36 AM COMPUTING SYSTEMS MECHANIC documented as of this encounter Care Teams Upward Bound Director Relationship Specialty Start Date End Date Jimmy Doyle DO [address] [place] [address] PCP - General FAMILY PRACTICE 08/19/20 documented as of this encounter
--- OUTSIDE RECORDS SUMMARY | 2024-06-21 13:13 | XMS_ITS | Referral Summary ---
Author Organization [facility] Address [facility] [place] [address] Care Team Providers Care Senior Net Developer Name Role Phone Jimmy Doyle Primary Care Provide r Derrell Varma MD Unavailable [phone] Allergies Active Allergy Reactions Criticality Noted Date [...] on file Legal Sex Female 12:04 PM MANAGER SALT Gender Identity Not on file Sexual Orientation [...] Treatment Not on file Insurance [employer] MEDICARE NoiseFree MEDICARE NoiseFree MEDICARE NoiseFree [facility] [place] MED[employer] Address: [address] [address] [place] [address] [employer] Advance Directives For more information, please contact: [phone] * Full Code (Latest Code Status on File) Date Activated Date Inactivated Comments 02/09/2022 9:51 PM 02/12/2022 5:52 PM Care Teams Senior Net Developer Relationship Specialty Start Date End Date Jimmy Doyle DO [address] [place] [address] PCP - General Family Medicine 02/12/22 Derrell Varma MD [address] [facility] [address] [place] [address] [address] Surgeon Surgery 02/12/22
--- OUTSIDE RECORDS SUMMARY | 2024-06-21 13:13 | XMS_ITS | Encounter Summary ---
Author Organization [facility] Address [facility] [place] [address] Care Team Providers Care Pediatric Dermatologist Name Role Phone Jimmy Doyle Primary Care Provider + Reason for Visit * Reason Onset Date Comments Surgical Clearance 06/20/2024 Encounter Details Date Type Department Care Team (Late st Contact Info) Description 06/20/2024 Telephone [facility] [address] [facility] [address] [place] [address] Abhi Aguilar MD [address] [facility] [place] [address] [place] [address] Surgical Clearance Social History Tobacco Use Types Packs/Day Years Used Date Smoking Tobacco: Every Day Cigarettes 1 54.8 Started: [birth year]/19/1967 Smokeless Tobacco: Never Comments:trying to quit. 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 Alcohol Use Standard Drinks/Week Comments Never [...] Sex Assigned at Female 05/03/2024 9:57 AM COMMUNITY ENGAGEMENT REPRESENTATIVE Legal Sex Female 4:45 PM CDT Gender Identity Female 05/03/2024 9:57 AM COMMUNITY ENGAGEMENT REPRESENTATIVE Sexual Orientation Not on file documented as [...] Assessment Author Status No 09/21/2020 1:00 PM DONITAT Meryl Carl RN Active * Do you [...] Status No 09/21/2020 1:00 PM DONITAT Meryl Carl RN Active documented in this encounter Progress Notes * Tere Mendoza CMA - 06/20/2024 9:08 AM CST Clearance note faxed to [facility], Attn: Bree at [phone]. UNITY ENGAGEMENT REPRESENTATIVE * Cary Sparrow APRN - 06/20/2024 8:35 AM CST She has stable CAD, ok to proceed. Ideally would hold aspirin 3-5 days but ultimately will leave itup to the surgeon. UNITY ENGAGEMENT REPRESENTATIVE * Tere Mendoza CMA - 06/20/2024 8:22 AM CSTSummary: REQUEST FOR CARDIAC CLEARANCE Received a request for cardiac clearance and aspirin hold for 7 days prior to cysto possible bladder biopsy, bilateral retrograde pyelogram and bilateral ureteroscopy scheduled on June 28, 2024 withDr[address] S[facility]osh Bowers at [facility]. Fax clearance note to [facility], attn: Bree at [phone]. UNITY ENGAGEMENT REPRESENTATIVE documented in this encounter Plan of Treatment Upcoming Encounters Date Type Department Care Team (Late st Contact Info) Description 08/01/2024 8:20 AM CDT Office Visit [facility] Family & Internal Medicine - [address] [phone] Jimmy Doyle DO [address] [place] [address] 08/31/2024 12:00 PM CDT Office Visit [facility]-[address] [phone] Abhi Aguilar MD [address] [facility] [address] [facility] [place] [address] documented as of this encounter Goals Goal Patient Goal Type Associated Problems Recent Progress Patient-Stated? Author Patient will return to prior living situation and remain independent in ADLs upon discharge from [facility] General Daysi Nayak RN documented as of this encounter Visit Diagnoses Not on filedocumented in this encounter Additional Health Concerns Assessment Noted Time PHQ-9 Depression Total Score: 10 025 9:55 AM COMMUNITY ENGAGEMENT REPRESENTATIVE documented as of this encounter Care Teams Pediatric Dermatologist Relationship Specialty Start Date End Date Jimmy Doyle DO [address] [place] [address] PCP - General FAMILY PRACTICE 08/19/20 documented as of this encounter
--- OUTSIDE RECORDS SUMMARY | 2024-06-21 13:13 | XMS_ITS | Clinical Summary ---
Author Organization [facility] Address [address] [place] [address] Care Team Providers Care Counsel Name Role Phone Unavailable Primary Care Provider Unavailabl e Source Comments [facility],non-owned Affiliates and Associated Physician Practices is amultiple site organization consisting of ambulatory clinics and hospital sitesin [place], [place], [place] and [place]. This disclosure is being madepursuant to the Care Everywhere program and may not contain all information available regarding this patient. Last updated 18.[facility] [employer] Social History Tobacco Use Types Packs/Day Years [...]
--- OUTSIDE RECORDS SUMMARY | 2024-06-21 13:13 | XMS_ITS | Referral Summary ---
Author Organization [facility] Address [address] [place] [address] Care Team Providers Care Regrinder Operator Name Role Phone Unavailable Primary Care Provider Unavailabl e Source Comments [facility],non-owned Affiliates and Associated Physician Practices is amultiple site organization consisting of ambulatory clinics and hospital sitesin [place], [place], [place] and [place]. This disclosure is being madepursuant to the Care Everywhere program and may not contain all information available regarding this patient. Last updated 18.[facility] [employer] Social History Tobacco Use Types Packs/Day Years Used Date Smoking Tobacco: Never Assessed Sex and Gender Information Value Date Recorded Sex Assigned at Not on file Gender Identity Not on file Sexual Orientation Not on file Plan of Treatment Not on file
--- OUTSIDE RECORDS SUMMARY | 2024-06-21 13:13 | XMS_ITS | Encounter Summary ---
Author Organization [facility] Address [facility] [place] [address] Care Team Providers Care Fruit Checker Name Role Phone New Referring, Provider Primary Care Provider Un available Jimmy Doyle DO Primary Care Provider + Encounter Details Date Type Department Care Team (Latest Contact Info) Description 12/12/2017 Abstract [facility] , Farhana Aguilera MD Social History Tobacco Use Types Packs/Day Years Used Date Smoking Tobacco: Never Assessed Comments Unknown Sex and Gender Information Value Date Recorded Sex Assigned at Female 05/03/2024 9:57 AM EVENTS AND PROMOTIONS ASSISTANT Legal Sex Female 4:45 PM CDT Gender Identity Female 05/03/2024 9:57 AM EVENTS AND PROMOTIONS ASSISTANT Sexual Orientation Not on file documented as of this encounter Plan of Treatment Upcoming Encounters Date Type Department Care Team (Late st Contact Info) Description 08/01/2024 8:20 AM CDT Office Visit [facility] Family & Internal Medicine - [address] [phone] Jimmy Doyle DO [address] [place] [address] 08/31/2024 12:00 PM CDT Office Visit [facility] [phone] Abhi Aguilar MD [address] [place] [phone] documented as of this encounter Visit Diagnoses Not on filedocumented in this encounter Additional Health Concerns Infection Onset Date Last Indicated Resolved Time COVID-19 Rule Out 01/13/2022 01/13/2022 01/13/2022 9:32 AM CDT COVID-19 Rule Out 01/13/2022 01/13/2022 01/13/2022 9:59 AM CDT COVID-19 Rule Out 01/27/2023 01/27/2023 01/27/2023 11:28 AM CDT documented as of this encounter Care Teams Fruit Checker Relationship Specialty Start Date End Date New Referring, Provider PCP - General UNKNOWN PHYSICIAN SPECIALTY 01/25/18 08/18/20 Jimmy Doyle DO [address] [place] [id number] PCP - General FAMILY PRACTICE 08/19/20 documented as of this encounter
--- OUTSIDE RECORDS SUMMARY | 2024-06-21 13:13 | XMS_ITS | Encounter Summary ---
Author Organization [facility] Address [address] [place] [address] Care Team Providers Care Supervisor Concrete Block Plant Name Role Phone Unavailable Primary Care Provider Unavailabl e Encounter Details Date Type Department Care Team (Late st Contact Info) Description 01/28/2022 Lab Requisition [facility] [address] [place] [address] Kathy Mason MD [address] [place], [place] [id number] Illness, unspecified Social History Tobacco Use Types [...] 10:46 AM CDT) Final Diagnosis URINE/VOIDED (OSC: [id number]; 01/25/2022): - Negative for high grade urothelial carcinoma 01/28/2022 12:22 PM CDT [facility] Microscopic Description and Comment Microscopic examination substantiates the final diagnosis. 01/28/2022 12:22 PM CDT [facility] Clinical History HEMATURIA 01/28/2022 12:22 PM CDT [facility] Materials Received One thin prep slide received from [facility] [id number]. All material will be returned. 01/28/2022 12:22 PM CDT [facility] Disclaimer The performance characteristics of all immunohistochemical and indirect immunofluorescence stains (if any) cited in this report were determined by the Histopathology Laboratory of [facility]. Some of these tests were [...] attending (teaching) pathologist. 01/28/2022 12:22 PM CDT [facility] Case Report Surgical Pathology Report Case: [id number] Authorizing Provider: Kathy Mason MD Collected: 01/28/2022 10:46 AM Ordering Location: [facility] Received: 01/28/2022 10:51 AM Pathologist: Flaquito Bruno MD Specimen: Slide Consultation 01/28/2022 12:22 PM CDT [facility] Embedded Images 01/28/2022 12:22 PM CDT [facility] Pathology/Cytolo gy SURGICAL PATHOLOGY CONSULTATION AND REPORT ON REFERRED SLIDES PREPARED ELSEWHERE / Unknown 01/28/2022 10:46 AM CDT 01/28/2022 10:51 AM CDT Kathy Mason MD LAB - PATHOLOGY/CYTO LOGY ORDERABLES Performing Organization Address City/State/[facility] Co de Phone Number [facility] [address] [place], [place] [id number] [place] [address] documented in this encounter Visit Diagnoses Diagnosis Illness, unspecified documented in this encounter
--- OUTSIDE RECORDS SUMMARY | 2024-06-21 13:13 | XMS_ITS | Clinical Summary ---
Author Organization [facility] Address [facility] [place] [address] Care Team Providers Care Overhead Cleaner Name Role Phone Jimmy Doyle Primary Care Provide r Derrell Varma MD Unavailable [phone] Allergies Active Allergy Reactions Criticality Noted [...] on file Legal Sex Female 12:04 PM STEPDOWN NURSE Gender Identity Not on file Sexual Orientation [...] Colon Cancer Screening-Colonoscopy 1955 Depression Screening 1955 Hepatitis C Screening 1955 Osteoporosis Screening-Bone Density Scan 1957 DTaP/Tdap/Td Vaccine (1 - Tdap) 1968 Hepatitis B Screening 12/05/1975 Well Visit 65+ 2022 Fall Risk Assessment 02/12/2023 02/12/2022 Covid-19 Vaccine (4 - 2023-2 5 season) 2023 01/30/2021, 07/21/2020, 06/30/2020 Influenza Vaccine (#1) 2023 , 12/25/2020, 01/07/2020, Additional history exists Pneumococcal vaccine 65+ (3 of 3 - PCV20 or PCV21) 01/11/2025 01/12/2020, 05/14/2007 Zoster Vaccine Completed 04/06/2021, 01/27/2021 Insurance [employer] [facility] MEDICARE [employer] [facility] Advance Directives For more information, please contact: [phone] * Full Code (Latest Code Status on File) Date Activated Date Inactivated Comments 02/09/2022 9:51 PM 02/12/2022 5:52 PM Care Teams Overhead Cleaner Relationship Specialty Start Date End Date Jimmy Doyle DO [address] [place] [phone] PCP - General Family Medicine 02/12/22 Derrell Varma MD [address] [place] [address] [address] Surgeon Surgery 02/12/22
--- OUTSIDE RECORDS SUMMARY | 2024-06-21 13:13 | XMS_ITS | Patient Health Summary ---
Author Organization [facility] Address [address] [place] [address] Care Team Providers Care Power Reactor Supervisor Name Role Phone Unavailable Primary Care Provider Unavailabl e Note from [facility],non-owned Affiliates and Associated Physician Practices is amultiple site organization consisting of ambulatory clinics and hospital sitesin [place], [place], [place] and [place]. This disclosure is being madepursuant to the Care Everywhere program and may not contain all information available regarding this patient. Last updated 18.[facility] Social History Tobacco Use Types Packs/Day Years Used Date Smoking Tobacco: Never Assessed Sex and Gender Information Value Date Recorded Sex Assigned at Not on file Gender Identity Not on file Sexual Orientation Not on file Procedures * PATH CONSULT ON REFERRED CASE(Performed 01/28/2022) Performed for Illness, unspecified Results * PATH CONSULT ON REFERRED CASE (01/28/2022 10:46 AM CDT) Final Diagnosis URINE/VOIDED (OSC: [id number]; 01/25/2022): - Negative for high grade urothelial carcinoma 01/28/2022 12:22 PM T [facility] Microscopic Description and Comment Microscopic examination substantiates the final diagnosis. 01/28/2022 12:22 PM CDT [facility] Clinical History HEMATURIA 01/28/2022 12:22 PM [facility] Materials Received One thin prep slide received from [facility] [id number]. All material will be returned. 01/28/2022 12:22 PM [facility] Disclaimer The performance characteristics of all immunohistochemical and indirect immunofluorescence stains (if any) cited in this report were determined by the Histopathology Laboratory of [facility]. Some of these tests were [...] LAB Case Report Surgical Pathology Report Case: [id number] Authorizing Provider: Kathy Mason MD Collected: 01/28/2022 10:46 AM Ordering Location: [facility] Lab Received: 01/28/2022 10:51 AM Pathologist: Flaquito Bruno MD Specimen: Slide Consultation 01/28/2022 12:22 PM CDT [facility] Embedded Images 01/28/2022 12:22 PM CDT [facility] Pathology/Cytolo gy SURGICAL PATHOLOGY CONSULTATION AND REPORT ON REFERRED SLIDES PREPARED ELSEWHERE / Unknown 01/28/2022 10:46 AM CDT 01/28/2022 10:51 AM CDT Kathy Mason MD LAB - PATHOLOGY/CYTO LOGY ORDERABLES [facility] [address] [phone]
--- OUTSIDE RECORDS SUMMARY | 2024-06-21 13:14 | XMS_ITS | Encounter Summary ---
Author Organization [facility] Address [facility] [place] [address] Care Team Providers Care Fire Engine Pump Operator Name Role Phone Jimmy Doyle Primary Care Provider + Encounter Details Date Type Department Care Team (Late st Contact Info) Description 01/11/2022 Abstract [facility] [address] Doni Moore MA Social History Tobacco Use Types Packs/Day Years Used Date Smoking Tobacco: Every Day Cigarettes 1 54.8 Started: [birth year]/19/1969 Smokeless Tobacco: Never Comments:trying to quit. 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 Alcohol Use Standard Drinks/Week Comments Never [...] Sex Assigned at Female 05/03/2024 9:57 AM PROCESS ENGINEER Legal Sex Female 4:45 PM CDT Gender Identity Female 05/03/2024 9:57 AM PROCESS ENGINEER Sexual Orientation Not on file COVID-19 Exposure [...] Description 08/01/2024 8:20 AM CDT Office Visit [facility] Family & Internal Medicine - [address] [phone] Jimmy Doyle DO [address] [place] [address] 08/31/2024 12:00 PM CDT Office Visit [facility]-[address] [phone] Abhi Aguilar MD [address] [place] [phone] (work) documented as of this encounter Goals Goal Patient Goal Type Associated Problems Recent Progress Patient-Stated? Author Patient will return to prior living situation and remain independent in ADLs upon discharge from [facility] Daysi Nayak RN documented as of this [...] Total Score: 8 05/13/19 22 10:36 AM PROCESS ENGINEER documented as of this encounter Care Teams Fire Engine Pump Operator Relationship Specialty Start Date End Date iJmmy Doyle DO [address] [place] [address] PCP - General FAMILY PRACTICE 08/19/20 documented as of this encounter
--- OUTSIDE RECORDS SUMMARY | 2024-06-21 13:14 | XMS_ITS | Clinical Summary ---
Author Organization [facility] Address Formerly [facility] [place] [address] Care Team Providers Care Physical Therapy Assistant Instructor Name Role Phone Starla Arshad Vladimir QURESHI [...] route daily. 9.9 mL 11/28/19 24 Active dextromethorphan- guaiFENesin ER (MUCINEX DM) [...] BEDTIME 90 tablet 2 03/19/20 24 Active oxybutynin XL (DITROPAN-XL) 10 MG [...] AT BEDTIME 90 tablet 04/24/19 25 Active potassium chloride CR (KLOR-CON M) 10 MEQ tabletIndications :Hypopotassemia TAKE 1 TABLET(10 MEQ) BY MOUTH DAILY 90 tablet 05/18/19 25 Active HYDROcodone-aceta minophen (NORCO) 10-325 MG tabletIndications :Chronic Pain Take 1 tablet by mouth every 8 (eight) hours as needed for Pain. Indications: Chronic Pain 90 tablet 05/23/19 25 Active hydroCHLOROthiazi de (HYDRODIURIL) 25 MG tabletIndications :Primary hypertension TAKE 1 TABLET(25 MG) BY MOUTH DAILY 90 tablet 06/13/19 25 Active ALPRAZolam (XANAX) 0.5 MG tabletIndications :Anxiety Take 1 tablet (0.5 mg total) by mouth 2 (two) times daily as needed for Anxiety. 60 tablet 06/13/19 25 Active cefdinir (OMNICEF) 300 MG Cap capsuleIndication s:Dysuria Take 1 capsule (300 mg total) by mouth 2 (two) times daily. 20 capsule 06/14/19 25 Active ranolazine ER (RANEXA) 500 MG 12 hr tablet TAKE 1 TABLET(500 MG) BY MOUTH TWICE DAILY 180 tablet 1 06/19/19 25 Active venlafaxine XR (EFFEXOR-XR) 150 MG 24 hr capsuleIndication s:Bipolar affective disorder, currently depressed, mild (CMS/HCC HHS/HCC) TAKE 1 CAPSULE(150 MG) BY MOUTH DAILY 90 capsule 06/19/19 25 Active hydroCHLOROthiazi de (HYDRODIURIL) 25 MG tabletIndications :Primary hypertension TAKE 1 TABLET(25 MG) BY MOUTH DAILY 90 tablet 1 12/08/19 24 2024 Discontinued ranolazine ER (RANEXA) 500 MG 12 hr tablet Take 1 tablet (500 mg total) by mouth 2 (two) times daily. 180 tablet 1 12/26/19 24 2024 Discontinued venlafaxine XR (EFFEXOR-XR) 150 MG 24 hr capsuleIndication s:Bipolar affective disorder, currently depressed, mild (CMS/HCC HHS/HCC) TAKE 1 CAPSULE(150 MG) BY MOUTH DAILY 90 capsule 03/21/20 24 2024 Discontinued HYDROcodone-aceta minophen (NORCO) 10-325 MG tabletIndications :Chronic Pain Take 1 tablet by mouth every 8 (eight) hours as needed for Pain. Indications: Chronic Pain 05/03/19 25 2024 Discontinued(R eorder) ALPRAZolam (XANAX) 0.5 MG tabletIndications :Anxiety Take 1 tablet (0.5 mg total) by mouth 2 (two) times daily as needed for Anxiety. 60 tablet 05/14/19 25 2024 Discontinued(R eorder) cephALEXin (KEFLEX) 500 MG capsule Take 1 capsule (500 mg total) by mouth 2 (two) times daily for 10 days. 20 capsule 05/22/19 25 2024 Active Problems Problem Noted Date Diagnosed Date Bipolar affective disorder, currently depressed, mild ([facility]) 05/03/2023 Sedative, hypnotic or anxiol ytic dependence, uncomplicated ([facility]) 03/25/2022 PAD (peripheral artery disease) 02/19/2022 Right iliac artery stenosis 02/19/2022 Allergies 07/31/2021 Right lower quadrant abdominal pain 07/31/2021 Tobacco abuse 07/31/2021 Radiculopathy, lumbar region 12/29/2020 Other intervertebral disc degeneration, lumbar r egion 12/29/2020 Spondylolisthesis of lumbar region 12/29/2020 Coronary artery disease of n ative artery of [place] heart with stable angina pectoris 10/01/2020 Degenerative [...] 08/18/2020 Nausea 08/18/2020 Nicotine dependence 08/18/2020 On retirement drug therapy 08/18/2020 Polyarthritis 08/18/2020 Postmenopausal status 08/18/2020 Primary osteoarthritis of left knee 08/18/2020 Triggering of digit 08/18/2020 Vitamin D deficiency 08/18/2020 Cerebrovascular accident ([facility]) 04/30 Body mass index (BMI) of 28.0 to 28.9 in adult 0 10/12/2018 Low back pain 10/12/2018 Muscle spasm 02/03/2018 Lumbar foraminal stenosis 01/17/2018 Bulging lumbar disc 01/16/2018 Hypertension 01/16/2018 GERD (gastroesophageal reflux disease) 8 Lumbar stenosis 01/16/2018 Osteoarthrosis 01/16/2018 Depressive disorder 01/16/2018 Chronic obstructive pulmonary disease (CMS/HCC H HS/HCC) 01/16/2018 Hyperlipidemia 01/16/2018 Resolved Problems Problem Noted Date Diagnosed Date Resolved Date Screening for breast cancer 08/18/2020 08/25/2020 Infiltrate of lung present on chest x-ray 08/18/2020 05/03/2024 Encounter for preventive health examination 02/13/2014 08/25/2020 Encounters Date Type Department Care Team Description 06/20/2024 Telephone [facility] [address] [address] Abhi Aguilar MD Surgical Clearance 06/14/2024 1:40 PM HINGING MACHINE OPERATOR Allied Health/Nurse Visit [facility] Internal [address] [phone] Starla Arshad, DO UTI 06/14/2024 - 06/14/2024 11:59 PM HINGING MACHINE OPERATOR Hospital Encounter [facility] [place] [address] Starla Arshad, DO Discharge Disposition: Home or Self Care (Routine Discharge) 06/14/2024 Travel 06/12/[address] [phone] Satrla Arshad, DO Refill Request 06/03/2024 Scan PaxVax INFO SRVCS Scanned, Doc [facility] (SCAN) 05/23/[address] [phone] Starla Arshad, DO Medication Request 05/22/2024 3:56 PM HINGING MACHINE OPERATOR - 05/22/2024 9:24 PM HINGING MACHINE OPERATOR Emergency [facility] [place] [address] Kathleen Lilly MD Urinary Symptoms; Dizziness Discharge Disposition: Home or Self Care (Routine Discharge) 05/22/2024 Travel 05/17/[address] [place] [address] Starla Arshad, DO Information 05/16/2024 Scan [facility] SR[facility] Scanned, Doc [facility] (SCAN) 05/16/2024 Scan [facility] INFO SRVCS Scanned, Doc [facility] (SCAN); Image (SCAN); CT (SCAN) 05/16/[address] [phone] Starla Arshad, DO Advice 05/15/[address] [phone] Starla Arshad, DO Question 05/14/[address] [phone] Starla Arshad, DO Medication Request 05/03/2024 9:40 AM HINGING MACHINE OPERATOR Office Visit [address] [phone] Starla Arshad, DO Spinal Stenosis (The patient presents for a 3 month follow up ) 05/03/[address] [phone] Starla Arshad, DO Question 05/03/2024 Travel 04/20/2024 Scan HEALTH INFO SRVCS Scanned, Doc [facility] 04/17/[address] [phone] Starla Arshad, DO Results 04/12/[address] [phone] Starla Arshad, DO Medication Request 04/04/2024 9:40 AM HINGING MACHINE OPERATOR Allied Health/Nurse Visit [facility] [address] [phone] Starla Arshad, DO Allied Health Visit 04/04/2024 - 04/04/2024 11:59 PM HINGING MACHINE OPERATOR Hospital Encounter [facility] [address] [place] [address] Starla Arshad, DO Discharge Disposition: Home or Self Care (Routine Discharge) 04/04/2024 Travel 04/02/2024 Travel 04/02/2024 Telephone [facility] Internal [address] [phone] Starla Arshad, DO Medication Request 04/02/2024 Telephone [facility] Internal [address] [phone] Starla Arshad, DO Advice 03/26/2024 8:10 AM HINGING MACHINE OPERATOR - 03/26/2024 12:41 PM HINGING MACHINE OPERATOR Emergency [facility] [place] [address] Vin Vegas, ELIANA Urinary Symptoms Discharge Disposition: Home or Self Care (Routine Discharge) 03/26/2024 Travel 03/26/2024 Telephone [facility] Internal [address] [phone] Starla Arshad, DO Urine from Last 3 Months Immunizations Name Administration [...] Given: Yes Comments:trying to quit. 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 to vocational guidance counselor Alcohol Use Standard Drinks/Week Comments [...] Sex Assigned at Female 05/03/2024 9:57 AM HINGING MACHINE OPERATOR Legal Sex Female 4:45 PM CDT Gender Identity Female 05/03/2024 9:57 AM HINGING MACHINE OPERATOR Sexual Orientation Not on file Last Filed Vital Signs Vital Sign Reading Time Taken Comments Blood Pressure 148/73 05/22/2024 8:59 PM HINGING MACHINE OPERATOR Pulse 70 05/22/2024 8:59 PM HINGING MACHINE OPERATOR Temperature 36.9 C (98.4 F) 05/22/2024 8:59 PM HINGING MACHINE OPERATOR Respiratory Rate 16 05/22/2024 8:59 PM HINGING MACHINE OPERATOR Oxygen Saturation 95% 05/22/2024 8:59 PM HINGING MACHINE OPERATOR Inhaled Oxygen Concentration - - Weight 67.3 kg (148 lb 5.9 oz) 05/22/2024 2:14 P M HINGING MACHINE OPERATOR Height 165.1 cm (5' 5 ) 05/22/2024 2:14 PM HINGING MACHINE OPERATOR Body Mass Index 24.69 05/22/2024 2:14 PM HINGING MACHINE OPERATOR Plan of Treatment Upcoming Encounters Date Type Department Care Team (Late st Contact Info) Description 08/01/2024 8:20 AM CDT Office Visit [facility] Family & Internal Medicine - [address] [phone] Starla Arshad DO [address] [place] [phone] 08/31/2024 12:00 PM CDT Office Visit [facility] [phone] Abhi Aguilar MD 3 [facility] [address] [place] [phone] Health Maintenance Due Date Last Done Comments Lung Cancer Screening 12/05/2007 RSV Immunization or 60+ Years (1 - Risk 60-74 years 1-dose series) 2017 Mammogram Screening 09/09/2022 09/09/2020, COVID-19 Vaccine ( season) 2024 01/18/2024, 01/27/2023, 01/27/2023, Additional history [...] 01/16, 01/21/2022, Additional history exists PHQ-2 (Physician [place]) Completed 05/03/2024 Meningococcal B Vaccine Aged Out [...] remain independent in ADLs upon discharge from [facility] Daysi Nayak RN Procedures Procedure Name Priority Date/Time Associated Diagnosis Comments URINE BACTERIA CULTURE Routine 10:27 AM HINGING MACHINE OPERATOR Dysuria URINALYSIS AUTO DIP Routine 06/14/2024 Dysuria OUTSIDE LAB (SCAN ORDER) 06/03/2024 OUTSIDE LAB (SCAN ORDER) 06/03/2024 OUTSIDE LAB (SCAN ORDER) 06/03/2024 ECG 12-LEAD Routine 05/22/2024 4:19 PM HINGING MACHINE OPERATOR TROPONIN, QUANT STAT 05/22/2024 4:08 PM HINGING MACHINE OPERATOR COMPREHENSIVE METABOLIC PANEL STAT 05/22/2024 4:08 PM HINGING MACHINE OPERATOR CBC W/DIFF AUTOMATED STAT 05/22/2024 4:08 PM HINGING MACHINE OPERATOR URINE BACTERIA CULTURE STAT 3:19 PM HINGING MACHINE OPERATOR HC URINALYSIS AUTO W/O MICRO STAT 05/22/2024 3:19 PM HINGING MACHINE OPERATOR XR CHEST PORTABLE STAT 05/22/2024 3:0 2 [address] HINGING MACHINE OPERATOR CT GENERIC 05/16/2024 CT GENERIC 05/16/2024 OUTSIDE LAB COVID-19 (SCAN ORDER) Routine 05/16/2024 OUTSIDE LAB (SCAN ORDER) 05/16/2024 OUTSIDE LAB (SCAN ORDER) 05/16/2024 OUTSIDE LAB (SCAN ORDER) 05/16/2024 OUTSIDE LAB (SCAN ORDER) 05/16/2024 OUTSIDE LAB (SCAN ORDER) 05/16/2024 OUTSIDE LAB (SCAN ORDER) 05/16/2024 OUTSIDE LAB (SCAN ORDER) 05/16/2024 IMAGE GENERIC 05/16/2024 IMAGE GENERIC 05/16/2024 MG/PCCL UDS W CONF Routine 05/03/2024 9: 46 AM HINGING MACHINE OPERATOR Encounter for long-term (current) use of medications URINE BACTERIA CULTURE Routine 10:08 AM HINGING MACHINE OPERATOR Gross hematuria Proteinuria, unspecified type URINALYSIS MICRO ONLY Routine 04/04/2024 10:08 AM HINGING MACHINE OPERATOR Gross hematuria Proteinuria, unspecified type URINALYSIS AUTO DIP Routine 04/04/[address] ABD+PEL KIDNEY STONE STAT 03/26/2024 9:47 AM HINGING MACHINE OPERATOR URINE BACTERIA CULTURE STAT 9:41 AM HINGING MACHINE OPERATOR CK (CPK) STAT 03/26/2024 9:37 AM HINGING MACHINE OPERATOR COMPREHENSIVE METABOLIC PANEL STAT 03/26/2024 9:37 AM HINGING MACHINE OPERATOR CBC W/DIFF AUTOMATED STAT 03/26/2024 9:37 AM HINGING MACHINE OPERATOR HC URINALYSIS AUTO W/O MICRO STAT 03/26/2024 8:04 AM HINGING MACHINE OPERATOR LIPID PANEL Routine 04/05/2023 8:24 AM HINGING MACHINE OPERATOR Primary hypertension Screening for lipid disorders Screening for endocrine, metabolic and immunity disorder Annual physical exam HEPATITIS C ANTIBODY Routine 04/05/2023 8:24 AM HINGING MACHINE OPERATOR Primary hypertension Screening for lipid disorders Screening for endocrine, metabolic and immunity disorder Annual physical exam Need for hepatitis C screening test MG DIAG W WILMER BILAT DIGI Routine 09/09/2020 12:14 PM CDT Breast lump on left side at 10 o'clock position from Last 3 Months or Most Recently Relevant to Health Maintenance Results * URINE BACTERIA CULTURE (06/14/2024 10:27 AM HINGING MACHINE OPERATOR) Only the most recent of4 resultswithin the time period is included. SPEC DESCRIPTION URINE CLEAN CATCH 06/14/2024 2:05 PM [facility] SPECIAL REQUESTS NO SPECIAL REQUEST 06/14/2024 2:05 PM [facility] CULTURE RESULT EQUAL OR >100,000 CFU/mL ESCHERICHIA COLI 06/16/2024 9:58 AM [facility] URINE SPECIMEN OBTAINED BY CLEAN CATCH PROCEDURE / Unknown 06/14/2024 10:27 AM HINGING MACHINE OPERATOR 06/14/2024 5:11 PM HINGING MACHINE OPERATOR Narrative Organism Antibiotic Method Susceptibility Escherichia coli [...] Sensitive Escherichia coli TETRACYCLINE ESVIN (VITEK) Sensitive Starla Arshad DO MICROBIOLOGY - GENERAL O RDERABLES Final Result Performing Organization Address City/[facility]/ZIP Co de Phone Number [facility] [address] [place] [address], [place] [phone] * (ABNORMAL) URINALYSIS AUTO DIP (06/14/2024) Only the most recent of2 resultswithin the time period is included. COLOR (U) BROWN(A) YELLOW [facility] TRANSPARENCY TURBID(A) CLEAR [facility] GLUCOSE (U) NEGATIVE NEGATIVE MG/DL [facility] BILIRUBIN (U) 2+ (MODERATE)(A ) NEGATIVE [facility] KETONES MG/DL (U) 5 (TRACE)(A) NEGATIVE MG/DL [facility] SPECIFIC GRAVITY (U) 1.020 1.001 - 1.035 [facility] BLOOD (U) LARGE (Non Hemolyzed, Intact, About 250 rbc/uL)(A) NEGATIVE [facility] U PH 5.5 5.0 - 9.0 [facility] PROTEIN (U) 3+ (>=300)(A) NEGATIVE mg/dL [facility] UROBILINOGEN 4.0(A) 0.2 - 1.0 EU/dL = mg/dL [facility] NITRITES POSITIVE(A) NEGATIVE MG/DL [facility] LEUKOCYTES (U) 3+ (LARGE)(A) NEGATIVE [facility] URINE SPECIMEN OBTAINED BY CLEAN CATCH PROCEDURE / Unknown 06/14/2024 Starla Arshad DO URINE ORDERABLES Final R esult Performing Organization Address City/[facility]/ZIP Co de Phone Number [facility] [address] [place] [address], [place] * OUTSIDE LAB (SCAN ORDER) (06/03/2024) Only the most recent of10 resultswithin the time period is included. 06/03/2024 us [facility] Scanned SCANNING Final Resu lt * ECG 12 lead (05/22/2024 4:19 PM HINGING MACHINE OPERATOR) 05/22/2024 4:19 PM HINGING MACHINE OPERATOR Narrative [facility] - 05/22/2024 11:53 PM HINGING MACHINE OPERATOR [place] [address] Test Date: 2024-05-22 Pat Name: DANNY WELLER Department: 41 Room: VAUGHN Gender: Female Service Writer Advisor: [id number] : 1955 Requested By: VIN VEGAS Order Number: [id number] Reading BAILEY Dowell Measurements Intervals [place] Rate: 70 P: 68 IA: 185 QRS: 69 QRSD: 94 T: 41 QT: 385 QTc: 416 Interpretive Statements SINUS RHYTHM NONSPECIFIC T-WAVE ABNORMALITY Compared to ECG 04/01/2023 11:55:20 T-wave abnormality now present ING MACHINE OPERATOR Procedure Note Chuy Dowell MD - 05/22/2024 [facility] Test Date: 2024-05-22 Pat Name: DANNY WELLER Department: 41 Room: VAUGHN Gender: Female Service Writer Advisor: [id number] : 1955 Requested By: VIN VEGAS Order Number: [id number] Reading : Chuy Dowell Measurements Intervals [place] Rate: 70 P: 68 IA: 185 QRS: 69 QRSD: 94 T: 41 QT: 385 QTc: 416 Interpretive Statements SINUS RHYTHM NONSPECIFIC T-WAVE ABNORMALITY Compared to ECG 04/01/2023 11:55:20 T-wave abnormality now present ING MACHINE OPERATOR us Vin Vegas DEMOLITION CRANE OPERATOR ECG ORDERABLES Final Result [facility] (ABA) RAD * (ABNORMAL) COMPREHENSIVE METABOLIC PANEL (05/22/2024 4:08 PM HINGING MACHINE OPERATOR) Only the most recent of2 resultswithin the time period is included. GLUCOSE 102(H) 70 - 99 MG/DL 05/22/2024 5:11 PM [facility] BUN 13 7 - 18 MG/DL 05/22/2024 5:11 PM [facility] CREATININE S/P/B 0.61 0.55 - 1.02 MG/DL 05/22/2024 5:11 PM [facility] SODIUM S/P/B 137 136 - 145 MMOL/L 05/22/2024 5:11 PM [facility] POTASSIUM S/P/B 3.8 3.5 - 5.1 MMOL/L 05/22/2024 5:11 PM [facility] CHLORIDE S/P/B 106 97 - 115 MMOL/L 05/22/2024 5:11 PM [facility] CO2 30.6 21 - 32 MMOL/L 05/22/2024 5:11 PM [facility] CALCIUM S/P/B 9.4 8.5 - 10.1 MG/DL 05/22/2024 5:11 PM [facility] BILIRUBIN TOTAL S/P/B 0.4 0.2 - 1.2 MG/DL 05/22/2024 5:11 PM [facility] Comment: THIS ASSAY IS NOT RECOMMENDED FOR PATIENTS UNDERGOING TREATMENT WITH ELTROMBOPAG DUE TO THE POTENTIAL FOR FALSELY ELEVATED RESULTS. TOTAL PROTEIN S/P/B 7.7 6.4 - 8.2 G/DL 05/22/2024 5:11 PM [facility] ALBUMIN S/P/B 3.7 3.4 - 5.0 G/DL 05/22/2024 5:11 PM [facility] AST 14(L) 15 - 37 U/L 05/22/2024 5:11 PM [facility] ALT 17 14 - 55 U/L 05/22/2024 5:11 PM [facility] ALKALINE PHOSPHATASE S/P/B 65 50 - 136 U/L 05/22/2024 5:11 PM [facility] ANION GAP 0.4(L) 2 - 10 MMOL/L 05/22/2024 5:11 PM [facility] BUN CREATININE RATIO 21.2 6 - 26 05/22/2024 5:11 PM [facility] A/G RATIO 0.9(L) 1.0 - 2.0 RATIO 05/22/2024 5:11 PM [facility] GFR ESTIMATE >90 >90 ML/MIN/1.7 3 M2 05/22/2024 5:11 PM [facility] Comment: NOTE: eGFR is not calculated for patients <18 years of age or gender unknown. This is an estimated GFR calculation using the new CKD EPI creatinine equation without race and so does not require a correction factor for race. This estimated GFR should not be used for calculating drug doses. 05/22/2024 4:08 PM HINGING MACHINE OPERATOR Vin Vegas NP LABORATORY Final Result [facility] [address] [place] [address], [place] [phone] * (ABNORMAL) CBC W/DIFF AUTOMATED (05/22/2024 4:08 PM HINGING MACHINE OPERATOR) Only the most recent of2 resultswithin the time period is included. WBC 7.30 4.5 - 11.0 x10'3/uL 05/22/2024 4:44 PM [facility] RBC 4.29 4.20 - 5.40 x10'6/uL 05/22/2024 4:44 PM [facility] HGB 13.8 12.0 - 16.0 G/DL 05/22/2024 4:44 PM [facility] HCT 39.3 38.0 - 48.0 % 05/22/2024 4:44 PM [facility] MCV 91.6 81.0 - 99.0 FL 05/22/2024 4:44 PM [facility] MCH 32.2(H) 27.0 - 31.0 PG 05/22/2024 4:44 PM [facility] MCHC 35.1 32.0 - 36.0 G/DL 05/22/2024 4:44 PM [facility] RDW 12.7 11.5 - 14.5 % 05/22/2024 4:44 PM [facility] PLT 284 130 - 400 x10'3/uL 05/22/2024 4:44 PM [facility] MPV 9.1(L) 9.3 - 12.2 FL 05/22/2024 4:44 PM [facility] DIFFERENTIAL TYPE AUTOMATED DIFFERENTIAL 05/22/2024 4:44 PM [facility] NEUTROPHILS % 44.9 % 05/22/2024 4:44 PM [facility] LYMPHOCYTES % 37.8 % 05/22/2024 4:44 PM [facility] MONOCYTES % 9.6 % 05/22/2024 4:44 PM [facility] EOSINOPHILS 6.3 % 05/22/2024 4:44 PM [facility] BASOPHILS 1.1 % 05/22/2024 4:44 PM HINGING MACHINE OPERATOR [facility] IMMATURE GRANS % 0.3 % 05/22/19 4:44 PM HINGING MACHINE OPERATOR [facility] ABS. NEUTROPHILS 3.28 1.80 - 7.70 x10'3/uL 05/22/2024 4:44 PM HINGING MACHINE OPERATOR [facility] ABS. LYMPHOCYTES 2.76 1.00 - 4.80 x10'3/uL 05/22/2024 4:44 PM HINGING MACHINE OPERATOR [facility] ABS. MONOCYTES 0.70 0.24 - 0.86 x10'3/uL 05/22/2024 4:44 PM HINGING MACHINE OPERATOR [facility] ABS. EOSINOPHILS 0.46(H) 0.04 - 0.36 x10'3/uL 05/22/2024 4:44 PM HINGING MACHINE OPERATOR [facility] ABS. BASOPHILS 0.08 0.01 - 0.08 x10'3/uL 05/22/2024 4:44 PM HINGING MACHINE OPERATOR [facility] ABS. IMMATURE GRANULOCYTES 0.02 0.00 - 0.49 x10'3/uL 05/22/2024 4:44 PM [facility] 05/22/2024 4:08 PM HINGING MACHINE OPERATOR Vin Vegas NP LABORATORY Final Result [facility] [address] [place] [address], * TROPONIN, QUANT (05/22/2024 4:08 PM HINGING MACHINE OPERATOR) Pathologist [facility] TROPONIN I HIGH SENSITIVITY <3 <54 ng/L 05/22/2024 5:11 PM HINGING MACHINE OPERATOR [facility] Comment: HIGH DOSES OF BIOTIN, TROPONIN-SPECIFIC AUTOANTIBODIES, AND ANTIBODY THERAPY CONTAINING HAMA MAY INTERFERE WITH THIS TEST RESULT. CORRELATION TO CLINICAL HISTORY AND PRESENTATION RECOMMENDED. 05/22/2024 4:08 PM HINGING MACHINE OPERATOR us Vin Vegas NP LABORATORY Final Result [facility] [address] [place] [address], [place] [phone] * (ABNORMAL) URINALYSIS (05/22/2024 3:19 PM HINGING MACHINE OPERATOR) Only the most recent of2 resultswithin the time period is included. SPECIMEN TYPE URINE CLEAN CATCH 05/22/2024 3:22 PM HINGING MACHINE OPERATOR [facility] COLOR (U) LIGHT ORANGE 05/22/2024 3:33 PM HINGING MACHINE OPERATOR [facility] TRANSPARENCY TURBID 05/22/2024 3:33 PM HINGING MACHINE OPERATOR [facility] SPECIFIC GRAVITY (U) 1.013 1.001 - 1.030 05/22/2024 3:33 PM HINGING MACHINE OPERATOR [facility] U PH 6.5 5.0 - 9.0 05/22/2024 3:33 PM [facility] LEUKOCYTES (U) 25(A) NEGATIVE 05/22/2024 3:33 PM HINGING MACHINE OPERATOR [facility] NITRITES NEGATIVE NEGATIVE 05/22/2024 3:33 PM HINGING MACHINE OPERATOR [facility] PROTEIN RANDOM (U) 20 <30 MG/DL 05/22/2024 3:33 PM HINGING MACHINE OPERATOR [facility] GLUCOSE (U) NORMAL NORMAL MG/DL 05/22/2024 3:33 PM HINGING MACHINE OPERATOR [facility] KETONES MG/DL (U) NEGATIVE NEGATIVE MG/DL 05/22/2024 3:33 PM HINGING MACHINE OPERATOR [facility] UROBILINOGEN NORMAL NORMAL MG/DL 05/22/2024 3:33 PM HINGING MACHINE OPERATOR [facility] BILIRUBIN (U) NEGATIVE NEGATIVE MG/DL 05/22/2024 3:33 PM HINGING MACHINE OPERATOR [facility] BLOOD (U) 3+(A) NEGATIVE 05/22/2024 3:33 PM HINGING MACHINE OPERATOR [facility] WBC/HPF 88(H) <6 /HPF 05/22/2024 3:33 PM HINGING MACHINE OPERATOR [facility] RBC/HPF >100(H) <6 /HPF 05/22/2024 3:33 PM HINGING MACHINE OPERATOR [facility] BUDDING YEAST RARE(A) NONE /HPF 05/22/2024 3:33 PM HINGING MACHINE OPERATOR [facility] SQUAMOUS EPITHELIALS RARE /HPF 05/22/2024 3:33 PM HINGING MACHINE OPERATOR [facility] URINE SPECIMEN OBTAINED BY CLEAN CATCH PROCEDURE / Unknown 05/22/2024 3:19 PM HINGING MACHINE OPERATOR [place] DEMOLITION CRANE OPERATOR URINE ORDERABLES Final Result [facility] [address] [place], [place] [address], [place] [phone] * XR CHEST PORTABLE (05/22/2024 3:02 PM HINGING MACHINE OPERATOR) Anatomical Region Laterality Modality Chest Radiographic Nuris ging 05/22/2024 3:04 PM HINGING MACHINE OPERATOR Impressions 05/22/2024 3:05 PM HINGING MACHINE OPERATOR Impression: Unremarkable one view chest; no radiographic evidence of acute/active cardiopulmonary disease Ordered By: VIN VEGAS Interpreted By: Lisa Edwards MD, 05/22/2024 3:04 PM Narrative 05/22/2024 3:05 PM HINGING MACHINE OPERATOR [facility] [address] [place], [place] [address] Examination: Chest x-ray 1 view Exam date/time: [...] Procedure Note Lisa Edwards MD - 05/22/[address] [address] Examination: Chest x-ray 1 view Exam date/time: [...] Edwards MD, 05/22/2024 3:04 PM Vin Vegas DEMOLITION CRANE OPERATOR GENERAL IMAGING Final Result * OUTSIDE LAB COVID-19 (05/16/2024) CORONAVIRUS SARS COV 2 PCR (RESP) NOT DETECTED NOT DETECTED [facility] 05/16/2024 [facility] Scanned SCANNING Final Resu lt [facility] * CT GENERIC (05/16/2024) Only the most recent of2 resultswithin the time period is included. Anatomical Region Laterality Modality Other 05/16/2024 [facility] Scanned SCANNING Final Resu lt * IMAGE GENERIC (05/16/2024) Only the most recent of2 resultswithin the time period is included. Anatomical Region Laterality Modality Other 05/16/2024 [facility] Scanned SCANNING Final Resu lt * (ABNORMAL) MG/PCCL UDS W CONF (05/03/2024 9:46 AM HINGING MACHINE OPERATOR) RESULT SUMMARY [facility] [facility] Comment: Prescribed Prescribed Not Prescribed Consistent Inconsistent Inconsistent Hydrocodone Marijuana Metabolite Xanax(TM) PRESCRIBED DRUG 1 (U) Xanax(TM) [facility] PRESCRIBED DRUG 2 (U) Hydrocodone [facility] FENTANYL SCREEN (U) NEGATIVE <0.5 ng/mL [...] PM (U) NEGATIVE <50 ng/mL [facility] [place] AMINOCLONAZEPAM PM (U) INTERFERENCE( A) <25 ng/mL [facility] [place] Comment: See Note A See Note A OH ET FLURAZEPAM PM (U) NEGATIVE <50 ng/mL [facility] LORAZEPAM PM (U) NEGATIVE <50 ng/mL [facility] [place] NORDIAZEPAM PM (U) NEGATIVE <50 ng/mL [facility] [place] OXAZEPAM PM (U) NEGATIVE <50 ng/mL [facility] [place] TEMAZEPAM PM NEGATIVE <50 ng/mL [facility] [place] BENZODIAZEPINES COMMENTS [facility] [place] Comment:See Benzodiazepines Notes, LDT Notes COCAINE METABOLITE PM (U) NEGATIVE <150 ng/mL [facility] [place] MARIJUANA METABOLITE PM (U) POSITIVE(A) <20 ng/mL [facility] [place] MARIJUANA METABOLITE PM CONF (U) 221(H) <5 ng/mL [facility] [place] MARIJUANA METAB PM MM CONF (U) INCONSISTENT( A) [facility] [place] MARIJUANA COMMENTS [facility] [place] Comment:See Marijuana Notes, LDT Notes METHADONE PM (U) NEGATIVE <100 ng/mL [facility] [place] OPIATES PM (U) POSITIVE(A) <100 ng/mL [facility] [place] CODEINE PM (U) NEGATIVE <50 ng/mL [facility] [place] HYDROCODONE PM (U) 1,518(H) <50 ng/mL [facility] [place] HYDROCODONE PM MEDMATCH (U) CONSISTENT [facility] HYDR[facility] PM (U) 391(H) <50 ng/mL [facility] [place] HYDROMORPHONE PM MEDMATCH CONSISTENT [facility] MORPHINE PM (U) NEGATIVE <50 ng/mL [facility] [place] NORHYDROCODONE PM (U) 4,279(H) <50 ng/mL [facility] [place] NORHYDROCODONE PM MM (U) CONSISTENT [facility] [place] OPIATES COMMENTS [facility] Comment:See Opiates Notes, L DT Notes OXYCODONE PM (U) NEGATIVE <100 ng/mL [facility] [place] CREATININE RANDOM (U) 136.4 > or = 20.0 mg/dL [facility] pH PM (U) 7.5 4.5 - 9.0 [facility] JAILYN BOSWELL OXIDANT NEGATIVE <200 mcg/mL [facility] YAMILET BOSWELL NOTE [facility] Comment: This drug testing is for [...] analytical performance characteristics have been determined by [facility]. It has not been cleared or approved by the FDA. This assay has been validated pursuant to the CLIA regulations and is used for clinical purposes. medMATCH(R) enables providers to identify if drug use is consistent or inconsistent with a corresponding prescribed medication(s) list. Healthcare Providers needing Interpretation assistance, please contact us at [phone] ( ) M-F, 8am to 10pm EST URINE SPECIMEN / Unknown 05/03/2024 9:46 AM HINGING MACHINE OPERATOR 05/04/2024 10:38 PM HINGING MACHINE OPERATOR Narrative Resulting Agency Comment Performing Organization Information: Site ID: [id number] Name: [facility] Address: [address] [place] [address] Director: Shon Moe Site ID: [id number] Name: [facility] Address: [address] [facility] [place] [address] Director: Suman Paiz MD Starla Arshad DO URINE ORDERABLES Final R esult [facility] - DIMPLE ORDERS [facility] [address] [address] [place] [address], [facility] [address] [place] [address] * (ABNORMAL) URINALYSIS MICRO ONLY (04/04/2024 10:08 AM HINGING MACHINE OPERATOR) RBC/HPF PACKED(A) 0 - 3 /HPF 04/04/2024 3:07 PM HINGING MACHINE OPERATOR [facility] WBC/HPF 0-3 0 - 3 /HPF 04/04/2024 3:07 PM HINGING MACHINE OPERATOR [facility] EPI/HPF 0-3 /HPF 04/04/2024 3:07 PM HINGING MACHINE OPERATOR [facility] BACTERIA (U) TRACE(A) NONE SEEN 04/04/2024 3:07 PM HINGING MACHINE OPERATOR [facility] URINE SPECIMEN OBTAINED BY CLEAN CATCH PROCEDURE / Unknown 04/04/2024 10:08 AM HINGING MACHINE OPERATOR Starla Arshad DO URINE ORDERABLES Final R esult [facility] [place] [place] [address] [place] [address], * CT ABD+PEL KIDNEY STONE (03/26/2024 9:47 AM HINGING MACHINE OPERATOR) Anatomical Region Laterality Modality Abdomen Computed Tomogra phy 03/26/2024 9:50 AM HINGING MACHINE OPERATOR Impressions 03/26/2024 10:19 AM HINGING MACHINE OPERATOR IMPRESSION: 1. Bilateral renal tiny nonobstructing nephrolithiasis [...] 03/26/2024 9:50 AM Narrative 03/26/2024 10:19 AM HINGING MACHINE OPERATOR [facility] [address] [place], [place] [address] Exam: CT abdomen and pelvis without contrast [...] Procedure Note Lisa Edwards MD - 03/26/[address] [address] Exam: CT abdomen and pelvis without contrast [...] MD, 03/26/2024 9:50 AM us Vin [place] DEMOLITION CRANE OPERATOR CT Final Result * CK (CPK) (03/26/2024 9:37 AM HINGING MACHINE OPERATOR) CPK 84 21 - 215 U/L 03/26/2024 11:39 AM HINGING MACHINE OPERATOR [facility] 03/26/2024 9:37 AM HINGING MACHINE OPERATOR Vin Vegas DEMOLITION CRANE OPERATOR LABORATORY Final Result [facility] [address] [place] [address], [place] [phone] * (ABNORMAL) LIPID PANEL (04/05/2023 8:24 AM HINGING MACHINE OPERATOR) CHOLESTEROL 135 <200 MG/DL 04/05/2023 4:46 PM HINGING MACHINE OPERATOR [facility] TRIGLYCERIDES 127 <150 MG/DL 04/05/2023 4:46 PM HINGING MACHINE OPERATOR [facility] HDL 37(L) >40 MG/DL 04/05/2023 4:46 PM HINGING MACHINE OPERATOR [facility] LDL-C 73 <100 MG/DL 04/05/2023 4:46 PM HINGING MACHINE OPERATOR [facility] VLDL CALCULATION 25 5 - 28 MG/DL 04/05/2023 4:46 PM HINGING MACHINE OPERATOR [facility] CHOL/HDL RATIO 3.6 0.0 - 4.0 04/05/2023 4:46 PM HINGING MACHINE OPERATOR [facility] LDL/HDL 2.0 0.41 - 2.13 04/05/2023 4:46 PM HINGING MACHINE OPERATOR [facility] NON HDL CHOLESTEROL 98 <140 MG/DL 04/05/2023 4:46 PM HINGING MACHINE OPERATOR [facility] 04/05/2023 8:24 AM HINGING MACHINE OPERATOR Starla Arshad DO LABORATORY Final Re sult [facility] [address] [place] [address], [place] [phone] * HEPATITIS C ANTIBODY (04/05/2023 8:24 AM HINGING MACHINE OPERATOR) HEPATITIS C AB NON-REACTI VE NON-REACT RAUL 04/05/2023 6:53 PM HINGING MACHINE OPERATOR [facility] Comment: ANTIBODIES TO HCV NOT DETECTED. DOES NOT EXCLUDE THE POSSIBILITY OF EXPOSURE TO HCV. 04/05/2023 8:24 AM HINGING MACHINE OPERATOR us Starla Arshad DO LABORATORY Final Re sult [facility] [address] [place] [address], [place] [phone] [id number] * [facility] DI[facility] W WILMER BILAT DIGI [...] Examination: Bilateral digital diagnostic mammogram with CAD. [id number] Clinical history: Left breast lump and tenderness. [...] demonstrate any discrete solid or cystic mass. [place] appearing tissue architecture is demonstrated. Physical exam surveillance is advised with any further evaluation at this point guided on that basis. From a mammographic standpoint, routine follow-up in one year would seem adequate. These findings were discussed with the patient. Starla Arshad DO MAMMO Final Re sult from Last 3 Months or Most Recently Relevant to Health Maintenance Insurance [facility] MEDICAID Advance Directives * Full Code (Latest Code Status on File) Date Activated Date Inactivated Comments 09/22/2020 12:40 PM 09/23/2020 12:52 PM Care Teams Physical Therapy Assistant Instructor Relationship Specialty Start Date End Date Starla Arshad DO [address] [place] [address] PCP - General FAMILY PRACTICE 08/19/20
== END 2024-06-21 11:36 | disposition home or self-care (01) ==
LOC: ANHSURGERY 11:38
PROVIDERS: PCP Student in an Organized Health Care Education/Training Program; Visit Provider Urology
DX: I10 Essential (primary) hypertension (principal)
CPT/HCPCS: 93005

== ENCOUNTER 2024-06-28 00:05 | Day surgery (SDC) | payer MEDICARE, MEDICAID, SELFPAY ==
--- NOTE | 2024-06-18 14:15 | PC.NURSE ---
Report to the Outpatient Waiting Room, entrance under the green pavilion located off [facility], at time __11:30 AM on date _06/28/24 . Planned Procedure Time: 1:30 PM .? Time changes happen often and if your time is changed the preop area will call you the afternoon before. - You and your visitor will be asked to self-screen and do not enter if you have any COVID symptoms. Please call surgeon if you need to reschedule. - A mask is optional within the hospital at this time. Patients may have clear liquids (water, carbonated beverages, clear teas, apple juice) until 3 hours prior to surgery( 10:30 AM) with a maximum of 20 ounces. - No food from midnight until time of surgery and no smoking, or chewing tobacco (or any form of nicotine). No chewing gum, candy or mints. Take only the following medications with a SIP of water on the morning of surgery: __XANAX,CARVEDILOL,HYDROCODONE IF NEEDED,VENLAFAXINE,RANEXA DO NOT STOP ANY OF YOUR OTHER PRESCRIPTION MEDICATIONS PRIOR TO SURGERY EXCEPT THE FOLLOWING Hold all vitamins and supplements for 3 days per anesthesiologist.06/25/24 Medications to discontinue per physician PT STATES HOLD ASPIRIN 7 DAYS PRE OP PER DR ROD Date to take last dose____06/20/24 Please no make-up, nail nepalese, hairspray, perfume, deodorant, or body powder the day of surgery.? No jewelry (including any body piercings) or valuables the day of surgery, leave them at home.? Please take a shower or bath the night before, or the morning of, surgery with an antibacterial soap.? Wear comfortable, loose fitting clothing.? Children are encouraged to wear pajamas. - Jewelry must be removed prior to entering the operating room.? Rings and piercings that are not removed may be cut off. - The hospital will not accept responsibility for valuables.? - Please leave all valuables, including medications, at home the day of surgery. If you are going home after surgery, a licensed race car driver must drive you home.? - NO public transportation without another adult if you receive anesthesia. - We recommend that an adult stay with you for 24 hours following discharge. - We also recommend that you do not drive, make important decision, drink alcoholic beverages, or take any drugs that were not prescribed by your health care provider for at least 24 hours after your discharge time. Follow any additional instructions given to you from your surgeon. Telephone instructions given to __PATIENT and asked if any additional questions and then verbalized understanding. Patient advised to call surgeon office or pre surgery nurse liaison [phone] if any additional questions.
[2024-06-18 14:43] VITALS: BMI 23.8
[2024-06-28] VITALS (9 sets, daily range): BP systolic 116–167; BP diastolic 62–86; PULSE 62–69; RESP 14–18; TEMP 36.1–36.9; O2SAT 93–100
--- NOTE | ~2024-06-28 | XR_ITS ---
INTRAOPERATIVE FLUOROSCOPY: CLINICAL HISTORY: 68 years old Female; BILATERAL RETROGRADES PROCEDURE COMMENTS: Limited intraoperative fluoroscopy of the bilateral kidneys was performed. CUMULATIVE DOSE: 33 mGy FLUOROSCOPY TIME: 112 seconds FINDINGS/IMPRESSION: Please refer to operative note for further details. Reviewed, dictated and finalized at location A.
--- OUTSIDE RECORDS SUMMARY | 2024-06-28 00:08 | XMS_ITS | Encounter Summary ---
Author Organization [facility] Address [address] [place] [address] Care Team Providers Care Clinical Evaluator Name Role Phone Unavailable Primary Care Provider Unavailabl e Encounter Details Date Type Department Care Team (Late st Contact Info) Description 01/28/2022 Lab Requisition [facility] [address] [place] [address] Kathy Mason MD [address] [place], [place] [id number] Illness, unspecified Social History Tobacco Use Types [...] 10:46 AM CDT) Final Diagnosis URINE/VOIDED (OSC: [id number]; 01/25/2022): - Negative for high grade urothelial carcinoma 01/28/2022 12:22 PM CDT [facility] Microscopic Description and Comment Microscopic examination substantiates the final diagnosis. 01/28/2022 12:22 PM CDT [facility] Clinical History HEMATURIA 01/28/2022 12:22 PM CDT [facility] Materials Received One thin prep slide received from [facility] [id number]. All material will be returned. 01/28/2022 12:22 PM CDT [facility] Disclaimer The performance characteristics of all immunohistochemical and indirect immunofluorescence stains (if any) cited in this report were determined by the Histopathology Laboratory of [facility]. Some of these tests were developed [...] attending (teaching) pathologist. 01/28/2022 12:22 PM CDT [facility] Case Report Surgical Pathology Report Case: [id number] Authorizing Provider: Kathy Mason MD Collected: 01/28/2022 10:46 AM Ordering Location: [facility] Lab Received: 01/28/2022 10:51 AM Pathologist: Flaquito Bruno MD Specimen: Slide Consultation 01/28/2022 12:22 PM CDT [facility] Embedded Images 01/28/2022 12:22 PM CDT [facility] Pathology/Cytolo gy SURGICAL PATHOLOGY CONSULTATION AND REPORT ON REFERRED SLIDES PREPARED ELSEWHERE / Unknown 01/28/2022 10:46 AM CDT 01/28/2022 10:51 AM CDT Kathy Mason MD LAB - PATHOLOGY/CYTO LOGY ORDERABLES Performing Organization Address City/State/[facility] Co de Phone Number [facility] [address] [place], [place] [address] [place] [address] documented in this encounter Visit Diagnoses Diagnosis Illness, unspecified documented in this encounter
--- OUTSIDE RECORDS SUMMARY | 2024-06-28 00:08 | XMS_ITS | Clinical Summary ---
Author Organization [facility] Address [address] [place] [address] Care Team Providers Care Screening Nurse Name Role Phone Unavailable Primary Care Provider Unavailabl e Source Comments [facility],non-owned Affiliates and Associated Physician Practices is amultiple site organization consisting of ambulatory clinics and hospital sitesin [place], [place], [place] and [place]. This disclosure is being madepursuant to the Care Everywhere program and may not contain all information available regarding this patient. Last updated 18.[facility] [employer] Social History Tobacco Use Types Packs/Day Years [...] to complete this topic MENINGOCOCCAL (Group B) VACC INE SHARED DECISION-MAKING Aged Out No longer eligibl e based on patient's age to complete this topic MENINGOCOCCAL GROUPS A/C/Y/W VACCINE Aged Out No longer eligible b ased on patient's age to complete this topic
--- OUTSIDE RECORDS SUMMARY | 2024-06-28 00:08 | XMS_ITS | Continuity of Care Document ---
Author Organization [facility] Address [address] [place] [address] [address] [place] [address] Phone Care Team Providers Care Claims Investigator Name Role Phone Idris PT, KEYON, Ave Unavailable Unavailable Procedures Procedure Date Therapeutic Exercise Neuromuscular Re-Ed Therapeutic Activities Hot or Cold Pack Therapeutic Activities Neuromuscular Re-Ed PT Evaluation Low Complexity Advance Directives Directive Yes / No Effective Date File Name No Information Encounters Encounter Description Practice Location Reason(s) For Visit Diagnoses Date Provider Providers Copied on Encounter [facility] [address], [id number], tel:[phone] Valentine No Information Sep-0 1 Idris Dorado. . [facility] [address] [place] [address], [id number], tel:[phone] Valentine No Information Sep-0 2- 1 Idris Dorado. . Referring Provider: Jimmy Doyle , [address] [place] [address], [address]. tel:[phone], [id number], tel:[phone] Valentine No Information Nov-3 0-202 1 Idris Dorado. . Referring Provider: Jimmy Doyle , [address] [place] [address], [address]. tel:[phone] Family History Family Member Type Diagnosis Age At Onset No Information Payers Payer name Insurance type Covered libertarian ID Authorcesiliapauline jamietristian(s) Medicare [place] [id number] Medicaid OON Write Off CI 00 Social [...]
--- OUTSIDE RECORDS SUMMARY | 2024-06-28 00:08 | XMS_ITS | Encounter Summary ---
Author Organization [facility] Address [facility] [place] [place] [address] Care Team Providers Care Programming Intern Name Role Phone Jimmy Doyle Primary Care Provider + Encounter Details Date Type Department Care Team (Late st Contact Info) Description 01/11/2022 Abstract [facility] [address] Doni Moore MA Social History Tobacco Use Types Packs/Day Years Used Date Smoking Tobacco: Every Day Cigarettes 1 54.9 Started: 08/19/1967 Smokeless Tobacco: Never Comments:trying to quit. 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 Alcohol Use Standard Drinks/Week Comments Never [...] Sex Assigned at Female 05/03/2024 9:57 AM CARAMEL CANDY MAKER Legal Sex Female 4:45 PM CDT Gender Identity Female 05/03/2024 9:57 AM CARAMEL CANDY MAKER Sexual Orientation Not on file COVID-19 Exposure [...] Description 08/01/2024 8:20 AM CDT Office Visit [facility] Family & Internal Medicine - [address] [phone] Jimmy Doyle DO [address] [place] [address] 08/31/2024 12:00 PM CDT Office Visit [facility] [phone] Abhi Aguilar MD [address] [place] [phone] (work) documented as of this encounter Goals Goal Patient Goal Type Associated Problems Recent Progress Patient-Stated? Author Patient will return to prior living situation and remain independent in ADLs upon discharge [facility] Daysi Nayak RN documented as of [...] Total Score: 8 05/13/19 22 10:36 AM CARAMEL CANDY MAKER documented as of this encounter Care Teams Programming Intern Relationship Specialty Start Date End Date Jimmy Doyle DO [address] [place] [address] PCP - General FAMILY PRACTICE 08/19/20 documented as of this encounter
--- OUTSIDE RECORDS SUMMARY | 2024-06-28 00:08 | XMS_ITS | Encounter Summary ---
Author Organization [facility] Address [facility] [place] [address] Care Team Providers Care Brake Operator Helper Name Role Phone New Referring, Provider Primary Care Provider Un available Jimmy Doyle DO Primary Care Provider + Encounter Details Date Type Department Care Team (Latest Contact Info) Description 12/12/2017 Abstract [facility] , Farhana Aguilera MD Social History Tobacco Use Types Packs/Day Years Used Date Smoking Tobacco: Never Assessed Comments Unknown Sex and Gender Information Value Date Recorded Sex Assigned at Female 05/03/2024 9:57 AM IN ROOM DINING SERVER Legal Sex Female 4:45 PM CDT Gender Identity Female 05/03/2024 9:57 AM IN ROOM DINING SERVER Sexual Orientation Not on file documented as of this encounter Plan of Treatment Upcoming Encounters Date Type Department Care Team (Late st Contact Info) Description 08/01/2024 8:20 AM CDT Office Visit [facility] Family & Internal Medicine - [address] [phone] Jimmy Doyle DO [address] [place] [address] 08/31/2024 12:00 PM CDT Office Visit [facility] [phone] Abhi Aguilar MD [address] [place] [phone] documented as of this encounter Visit Diagnoses Not on filedocumented in this encounter Additional Health Concerns Infection Onset Date Last Indicated Resolved Time COVID-19 Rule Out 01/13/2022 01/13/2022 01/13/2022 9:32 AM CDT COVID-19 Rule Out 01/13/2022 01/13/2022 01/13/2022 9:59 AM CDT COVID-19 Rule Out 01/27/2023 01/27/2023 01/27/2023 11:28 AM CDT documented as of this encounter Care Teams Brake Operator Helper Relationship Specialty Start Date End Date New Referring, Provider PCP - General UNKNOWN PHYSICIAN SPECIALTY 01/25/18 08/18/20 Jimmy Doyle DO [address] [place] [address] PCP - General FAMILY PRACTICE 08/19/20 documented as of this encounter
--- OUTSIDE RECORDS SUMMARY | 2024-06-28 00:08 | XMS_ITS | Encounter Summary ---
Author Organization [facility] Address [facility] [place] [address] Care Team Providers Care Dredge Worker Name Role Phone Jimmy Doyle DO Primary Care Provider + Encounter Details Date Type Department Care Team (Late st Contact Info) Description 06/23/2022 Prep for Procedure [facility] [address] [place], [place] [phone] Flaquito Valera MD [facility] [address] [place], [place] [phone] Social History Tobacco Use Types Packs/Day Years Used Date Smoking Tobacco: Every Day Cigarettes 1 54.9 Started: 08/19/1967 Smokeless Tobacco: Never Comments:trying to quit. 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 No / Unsure 06/24/2022 12:41 PM BINDING NICKER documented as of this encounter Functional Status [...] Description 08/01/2024 8:20 AM CDT Office Visit [facility] Family & Internal Medicine - [address] [phone] Jimmy Doyle, [address] [place] [address] 08/31/2024 12:00 PM CDT Office Visit [facility] [phone] Abhi Aguilar MD [address] [place] [address] [address] [place] [address] documented as of this encounter Goals Goal [...] Total Score: 8 05/13/19 22 10:36 AM BINDING NICKER documented as of this encounter Care Teams Dredge Worker Relationship Specialty Start Date End Date Jimmy Doyle DO [address] [place] [address] PCP - General FAMILY PRACTICE 08/19/20 documented as of this encounter
--- OUTSIDE RECORDS SUMMARY | 2024-06-28 00:08 | XMS_ITS | Referral Summary ---
Author Organization [facility] Address [address] [place] [address] Care Team Providers Care Orthodontic Laboratory Technician Name Role Phone Unavailable Primary Care Provider Unavailabl e Source Comments [facility],non-owned Affiliates and Associated Physician Practices is amultiple site organization consisting of ambulatory clinics and hospital sitesin [place] and [place]. This disclosure is being madepursuant to the Care Everywhere program and may not contain all information available regarding this patient. Last updated 18.[facility] [employer] Social History Tobacco Use Types Packs/Day Years Used Date Smoking Tobacco: Never Assessed Sex and Gender Information Value Date Recorded Sex Assigned at Not on file Gender Identity Not on file Sexual Orientation Not on file Plan of Treatment Not on file
--- OUTSIDE RECORDS SUMMARY | 2024-06-28 00:08 | XMS_ITS | Patient Health Summary ---
Author Organization [facility] Address [address] [place] [address] Care Team Providers Care Director Of Culture Name Role Phone Unavailable Primary Care Provider Unavailabl e Note from [facility],non-owned Affiliates and Associated Physician Practices is amultiple site organization consisting of ambulatory clinics and hospital sitesin [place], [place], [place] and [place]. This disclosure is being madepursuant [...] 10:46 AM CDT) Final Diagnosis URINE/VOIDED (OSC: [id number]; 01/25/2022): - Negative for high grade urothelial carcinoma 01/28/2022 12:22 PM T [facility] Microscopic Description and Comment Microscopic examination substantiates the final diagnosis. 01/28/2022 12:22 PM CDT [facility] Clinical History HEMATURIA 01/28/2022 12:[address] [facility] Materials Received One thin prep slide received from [facility] [id number]. All material will be returned. 01/28/2022 12:[address] [facility] Disclaimer The performance characteristics of all immunohistochemical and indirect immunofluorescence stains (if any) cited in this report were determined by the Histopathology Laboratory of [facility]. Some of these tests were developed [...] LAB Case Report Surgical Pathology Report Case: [id number] Authorizing Provider: Kathy Mason MD Collected: 01/28/2022 10:46 AM Ordering Location: [facility] Lab Received: 01/28/2022 10:51 AM Pathologist: Flaquito Bruno MD Specimen: Slide Consultation 01/28/2022 12:22 PM CDT [facility] Embedded Images 01/28/2022 12:22 PM CDT [facility] Pathology/Cytolo gy SURGICAL PATHOLOGY CONSULTATION AND REPORT ON REFERRED SLIDES PREPARED ELSEWHERE / Unknown 01/28/2022 10:46 AM CDT 01/28/2022 10:51 AM CDT Kathy Mason MD LAB - PATHOLOGY/CYTO LOGY ORDERABLES [facility] [address] [phone]
--- OUTSIDE RECORDS SUMMARY | 2024-06-28 00:09 | XMS_ITS | Clinical Summary ---
Author Organization [facility] Address [facility] [place] [address] Care Team Providers Care Human Services Assistant Name Role Phone Starla Arshad Vladimir QURESHI [...] MOUTH DAILY 90 tablet 05/18/19 25 Active ALPRAZolam (XANAX) 0.5 MG tabletIndications [...] de (HYDRODIURIL) 25 MG tabletIndications :Primary hypertension Take 1 tablet (25 mg total) by mouth daily. 90 tablet 3 06/23/19 25 Active HYDROcodone-aceta minophen (NORCO) 10-325 MG tabletIndications :Chronic Pain Take 1 tablet by mouth every 8 (eight) hours as needed for Pain. Indications: Chronic Pain 90 tablet 06/26/19 25 Active hydroCHLOROthiazi de (HYDRODIURIL) 25 MG [...] DAILY 90 capsule 03/21/20 24 2024 Discontinued ALPRAZolam (XANAX) 0.5 MG tabletIndications :Anxiety Take 1 tablet (0.5 mg total) by mouth 2 (two) times daily as needed for Anxiety. 60 tablet 05/14/19 25 2024 Discontinued(R eocailin) cephALEXin (KEFLEX) 500 MG capsule Take 1 capsule (500 mg total) by mouth 2 (two) times daily for 10 days. 20 capsule 05/22/19 25 2024 HYDROcodone-aceta minophen (NORCO) 10-325 MG tabletIndications :Chronic Pain Take 1 tablet by mouth every 8 (eight) hours as needed for Pain. Indications: Chronic Pain 90 tablet 05/23/19 25 2024 Discontinued(R eorder) hydroCHLOROthiazi de (HYDRODIURIL) 25 MG tabletIndications :Primary hypertension TAKE 1 TABLET(25 MG) BY MOUTH DAILY 90 tablet 06/13/19 25 2024 Discontinued(R eorder) Active Problems Problem Noted Date Diagnosed Date Bipolar affective disorder, currently depressed, mild ([facility]) 05/03/2023 Sedative, hypnotic or anxiol ytic dependence, uncomplicated ([facility]) 03/25/2022 PAD (peripheral artery disease) 02/19/2022 Right iliac artery stenosis 02/19/2022 Allergies 07/31/2021 Right lower quadrant abdominal pain 07/31/2021 Tobacco abuse 07/31/2021 Radiculopathy, lumbar region 12/29/2020 Other intervertebral disc degeneration, lumbar r egion 12/29/2020 Spondylolisthesis of lumbar region 12/29/2020 Coronary artery disease of n ative artery of [place] heart with stable angina pectoris 10/01/2020 Degenerative [...] 08/18/2020 Nausea 08/18/2020 Nicotine dependence 08/18/2020 On intermediate drug therapy 08/18/2020 Polyarthritis 08/18/2020 Postmenopausal status 08/18/2020 Primary osteoarthritis of left knee 08/18/2020 Triggering of digit 08/18/2020 Vitamin D deficiency 08/18/2020 Cerebrovascular accident ([facility]) 04/30 Body mass index (BMI) of 28.0 to 28.9 in adult 0 10/12/2018 Low back pain 10/12/2018 Muscle spasm 02/03/2018 Lumbar foraminal stenosis 01/17/2018 Bulging lumbar disc 01/16/2018 Hypertension 01/16/2018 GERD (gastroesophageal reflux disease) 8 Lumbar stenosis 01/16/2018 Osteoarthrosis 01/16/2018 Depressive disorder 01/16/2018 Chronic obstructive pulmonary disease ([facility]) 01/16/2018 Hyperlipidemia 01/16/2018 Resolved Problems Problem Noted Date Diagnosed Date Resolved Date Screening for breast cancer 08/18/2020 08/25/2020 Infiltrate of lung present on chest x-ray 08/18/2020 05/03/2024 Encounter for preventive health examination 02/13/2014 08/25/2020 Encounters Date Type Department Care Team Description 06/25/2024 Telephone [facility] Family & Internal [address] [phone] Starla Arshad, DO Refill Request 06/22/2024 Telephone [facility] Family Internal [address] [phone] Starla Arshad, DO Refill Request; Advice 06/20/[address] [address] Abhi Aguilar MD Surgical Clearance 06/14/2024 1:40 PM ASSOCIATE PROFESSOR OF PATHOLOGY Allied Health/Nurse Visit [facility] Family Internal [address] [phone] Starla Arshad, DO UTI 06/14/2024 - 06/14/2024 11:59 PM ASSOCIATE PROFESSOR OF PATHOLOGY [facility] [address] [place] [address] Starla Arshad, DO Discharge Disposition: Home or Self Care (Routine Discharge) 06/14/2024 Travel 06/12/2024 Telephone [facility] Family & Internal [address] [phone] Starla Arshad, DO Refill Request 06/03/2024 Scan DutyCalculator INFO SRVCS Scanned, Doc [facility] (SCAN) 05/23/2024 Telephone [facility] Internal [address] [phone] Starla Arshad, DO Medication Request 05/22/2024 3:56 PM ASSOCIATE PROFESSOR OF PATHOLOGY - 05/22/2024 9:24 PM ASSOCIATE PROFESSOR OF PATHOLOGY Emergency [facility] [place] [address] Kathleen Lilly MD Urinary Symptoms; Dizziness Discharge Disposition: Home or Self Care (Routine Discharge) 05/22/2024 Travel 05/17/[address] [phone] Starla Arshad, DO Information 05/16/2024 Scan [facility] INFO SRVCS Scanned, Doc [facility] (SCAN) 05/16/2024 Scan [facility] INFO SRVCS Scanned, Doc [facility] (SCAN); Image (SCAN); CT (SCAN) 05/16/[address] [phone] Starla Arshad, DO Advice 05/15/[address] [phone] Starla Arshad, DO Question 05/14/[address] [phone] Starla Arshad, DO Medication Request 05/03/2024 9:40 AM ASSOCIATE PROFESSOR OF PATHOLOGY Office Visit [address] [phone] Starla Arshad, DO Spinal Stenosis (The patient presents for a 3 month follow up ) 05/03/[address] [phone] Starla Arshad, DO Question 05/03/2024 Travel 04/20/2024 Scan Labmeeting INFO SRVCS Scanned, Doc [facility] 04/17/[address] [phone] Starla Arshad, DO Results 04/12/[address] [phone] Starla Arshad, DO Medication Request 04/04/2024 9:40 AM ASSOCIATE PROFESSOR OF PATHOLOGY Allied Health/Nurse Visit [address] [phone] Starla Arshad, DO Allied Health Visit 04/04/2024 - 04/04/2024 11:59 PM ASSOCIATE PROFESSOR OF PATHOLOGY Hospital Encounter [facility] [address] [place] [address] Starla Arshad, DO Discharge Disposition: Home or Self Care (Routine Discharge) 04/04/2024 Travel 04/02/2024 Travel 04/02/[address] [phone] Starla Arshad, DO Medication Request 04/02/[address] [phone] Starla Arshad, DO Advice from Last 3 Months Immunizations Name Administration [...] 1 54.9 Started: 08/19/1967 Smokeless Tobacco: Never Tobacco Cessation:Ready to Q uit: No; Counseling Given: Yes Comments:trying to quit. provider to eap counselor Alcohol Use Standard Drinks/Week Comments Never [...] Sex Assigned at Female 05/03/2024 9:57 AM ASSOCIATE PROFESSOR OF PATHOLOGY Legal Sex Female 4:45 PM CDT Gender Identity Female 05/03/2024 9:57 AM ASSOCIATE PROFESSOR OF PATHOLOGY Sexual Orientation Not on file Last Filed Vital Signs Vital Sign Reading Time Taken Comments Blood Pressure 148/73 05/22/2024 8:59 PM ASSOCIATE PROFESSOR OF PATHOLOGY Pulse 70 05/22/2024 8:59 PM ASSOCIATE PROFESSOR OF PATHOLOGY Temperature 36.9 C (98.4 F) 05/22/2024 8:59 PM ASSOCIATE PROFESSOR OF PATHOLOGY Respiratory Rate 16 05/22/2024 8:59 PM ASSOCIATE PROFESSOR OF PATHOLOGY Oxygen Saturation 95% 05/22/2024 8:59 PM ASSOCIATE PROFESSOR OF PATHOLOGY Inhaled Oxygen Concentration - - Weight 67.3 kg (148 lb 5.9 oz) 05/22/2024 2:14 P M ASSOCIATE PROFESSOR OF PATHOLOGY Height 165.1 cm (5' 5 ) 05/22/2024 2:14 PM ASSOCIATE PROFESSOR OF PATHOLOGY Body Mass Index 24.69 05/22/2024 2:14 PM ASSOCIATE PROFESSOR OF PATHOLOGY Plan of Treatment Upcoming Encounters Date Type Department Care Team (Late st Contact Info) Description 08/01/2024 8:20 AM CDT Office Visit [facility] Family & Internal Medicine - [address] [phone] Starla Arshad DO [address] [place] [address] 08/31/2024 12:00 PM CDT Office Visit [facility] [phone] Abhi Aguilar MD 3 [facility] [place] [address] [place] [phone] Health Maintenance Due Date Last Done [...] 01/16, 01/21/2022, Additional history exists PHQ-2 (Physician [place]) Completed 05/03/2024 Meningococcal B Vaccine Aged Out [...] remain independent in ADLs upon [facility] group activities aide Procedure Name Priority Date/Time Associated Diagnosis Comments URINE BACTERIA CULTURE Routine 10:27 AM ASSOCIATE PROFESSOR OF PATHOLOGY Dysuria URINALYSIS AUTO DIP Routine 06/14/2024 Dysuria OUTSIDE LAB (SCAN ORDER) 06/03/2024 OUTSIDE LAB (SCAN ORDER) 06/03/2024 OUTSIDE LAB (SCAN ORDER) 06/03/2024 ECG 12-LEAD Routine 05/22/2024 4:19 PM ASSOCIATE PROFESSOR OF PATHOLOGY TROPONIN, QUANT STAT 05/22/2024 4:08 PM ASSOCIATE PROFESSOR OF PATHOLOGY COMPREHENSIVE METABOLIC PANEL STAT 05/22/2024 4:08 PM ASSOCIATE PROFESSOR OF PATHOLOGY CBC W/DIFF AUTOMATED STAT 05/22/2024 4:08 PM ASSOCIATE PROFESSOR OF PATHOLOGY URINE BACTERIA CULTURE STAT 3:19 PM ASSOCIATE PROFESSOR OF PATHOLOGY HC URINALYSIS AUTO W/O MICRO STAT 05/22/2024 3:19 PM ASSOCIATE PROFESSOR OF PATHOLOGY XR CHEST PORTABLE STAT 05/22/2024 3:0 2 PM ASSOCIATE PROFESSOR OF PATHOLOGY CT GENERIC 05/16/2024 CT GENERIC 05/16/2024 OUTSIDE LAB COVID-19 (SCAN ORDER) Routine 05/16/2024 OUTSIDE LAB (SCAN ORDER) 05/16/2024 OUTSIDE LAB (SCAN ORDER) 05/16/2024 OUTSIDE LAB (SCAN ORDER) 05/16/2024 OUTSIDE LAB (SCAN ORDER) 05/16/2024 OUTSIDE LAB (SCAN ORDER) 05/16/2024 OUTSIDE LAB (SCAN ORDER) 05/16/2024 OUTSIDE LAB (SCAN ORDER) 05/16/2024 IMAGE GENERIC 05/16/2024 IMAGE GENERIC 05/16/2024 MG/PCCL UDS W CONF Routine 05/03/2024 9: 46 AM ASSOCIATE PROFESSOR OF PATHOLOGY Encounter for long-term (current) use of medications URINE BACTERIA CULTURE Routine 10:08 AM ASSOCIATE PROFESSOR OF PATHOLOGY Gross hematuria Proteinuria, unspecified type URINALYSIS MICRO ONLY Routine 04/04/2024 10:08 AM ASSOCIATE PROFESSOR OF PATHOLOGY Gross hematuria Proteinuria, unspecified type URINALYSIS AUTO DIP Routine 04/04/2024 Dysuria LIPID PANEL Routine 04/05/2023 8:24 AM ASSOCIATE PROFESSOR OF PATHOLOGY Primary hypertension Screening for lipid disorders Screening for endocrine, metabolic and immunity disorder Annual physical exam HEPATITIS C ANTIBODY Routine 04/05/2023 8:24 AM ASSOCIATE PROFESSOR OF PATHOLOGY Primary hypertension Screening for lipid disorders Screening for endocrine, metabolic and immunity disorder Annual physical exam Need for hepatitis C screening test MG DIAG W WILMER BILAT DIGI Routine 09/09/2020 12:14 PM CDT Breast lump on left side at 10 o'clock position from Last 3 Months or Most Recently Relevant to Health Maintenance Results * URINE BACTERIA CULTURE (06/14/2024 10:27 AM ASSOCIATE PROFESSOR OF PATHOLOGY) Only the most recent of3 resultswithin the time period is included. SPEC DESCRIPTION URINE CLEAN CATCH 06/14/2024 2:05 PM ASSOCIATE PROFESSOR OF PATHOLOGY [facility] SPECIAL REQUESTS NO SPECIAL REQUEST 06/14/2024 2:05 PM ASSOCIATE PROFESSOR OF PATHOLOGY [facility] CULTURE RESULT EQUAL OR >100,000 CFU/mL ESCHERICHIA COLI 06/16/2024 9:58 AM [facility] URINE SPECIMEN OBTAINED BY CLEAN CATCH PROCEDURE / Unknown 06/14/2024 10:27 AM ASSOCIATE PROFESSOR OF PATHOLOGY 06/14/2024 5:11 PM ASSOCIATE PROFESSOR OF PATHOLOGY Narrative Organism Antibiotic Method Susceptibility Escherichia coli [...] MICROBIOLOGY - GENERAL O RDERABLES Final Result [facility] [address] [place] [address], [id number] * (ABNORMAL) URINALYSIS AUTO DIP (06/14/2024) Only the most recent of2 resultswithin the time period is included. COLOR (U) BROWN(A) YELLOW [facility] TRANSPARENCY TURBID(A) CLEAR [facility] GLUCOSE (U) NEGATIVE NEGATIVE MG/DL [facility] BILIRUBIN (U) 2+ (MODERATE)(A ) NEGATIVE [facility] KETONES MG/DL (U) 5 (TRACE)(A) NEGATIVE MG/DL [facility] SPECIFIC GRAVITY (U) 1.020 1.001 - 1.035 [facility] BLOOD (U) LARGE (Non Hemolyzed, Intact, About 250 rbc/uL)(A) NEGATIVE [facility] U PH 5.5 5.0 - 9.0 [facility] PROTEIN (U) 3+ (>=300)(A) NEGATIVE mg/dL [facility] UROBILINOGEN 4.0(A) 0.2 - 1.0 EU/dL = mg/dL [facility] NITRITES POSITIVE(A) NEGATIVE MG/DL [facility] LEUKOCYTES (U) 3+ (LARGE)(A) NEGATIVE [facility] URINE SPECIMEN OBTAINED BY CLEAN CATCH PROCEDURE / Unknown 06/14/2024 Starla Arshad DO URINE ORDERABLES Final R esult [facility] [address] [place] [address], [place] * OUTSIDE LAB (SCAN ORDER) (06/03/2024) Only the most recent of10 resultswithin the time period is included. 06/03/2024 us Doc [facility] Scanned SCANNING Final Resu lt * ECG 12 lead (05/22/2024 4:19 PM ASSOCIATE PROFESSOR OF PATHOLOGY) 05/22/2024 4:19 PM ASSOCIATE PROFESSOR OF PATHOLOGY Narrative [facility] - 05/22/2024 11:53 PM ASSOCIATE PROFESSOR OF PATHOLOGY [address] Test Date: 2024-05-22 Pat Name: DANNY VARGAS Department: 41 Room: VAUGHN Gender: Female Travel Specialist: [id number] : 1955 Requested By: VIN VEGAS Order Number: [id number] Reading BAILEY Dowell Measurements Intervals [place] Rate: 70 P: 68 VT: 185 QRS: 69 QRSD: 94 T: 41 QT: 385 QTc: 416 Interpretive Statements SINUS RHYTHM NONSPECIFIC T-WAVE ABNORMALITY Compared to ECG 04/01/2023 11:55:20 T-wave abnormality now present CIATE PROFESSOR OF PATHOLOGY Procedure Note Chuy Dowell MD - 05/22/[address] Test Date: 2024-05-22 Pat Name: DANNY VARGAS Department: 41 Room: VAUGHN Gender: Female Travel Specialist: [id number] : 1955 Requested By: VIN VEGAS Order Number: [id number] Reading BAILEY Dowell Measurements Intervals [place] Rate: 70 P: 68 VT: 185 QRS: 69 QRSD: 94 T: 41 QT: 385 QTc: 416 Interpretive Statements SINUS RHYTHM NONSPECIFIC T-WAVE ABNORMALITY Compared to ECG 04/01/2023 11:55:20 T-wave abnormality now present CIATE PROFESSOR OF PATHOLOGY us [place] LIBRARY CATALOGING TECHNICIAN ECG ORDERABLES Final Result [facility] RAD * (ABNORMAL) COMPREHENSIVE METABOLIC PANEL (05/22/2024 4:08 PM ASSOCIATE PROFESSOR OF PATHOLOGY) [facility] GLUCOSE 102(H) 70 - 99 MG/DL 05/22/2024 5:11 PM ASSOCIATE PROFESSOR OF PATHOLOGY [facility] BUN 13 7 - 18 MG/DL 05/22/2024 5:11 PM ASSOCIATE PROFESSOR OF PATHOLOGY [facility] CREATININE S/P/B 0.61 0.55 - 1.02 MG/DL 05/22/2024 5:11 PM [facility] SODIUM S/P/B 137 136 - 145 MMOL/L 05/22/2024 5:11 PM [facility] POTASSIUM S/P/B 3.8 3.5 - 5.1 MMOL/L 05/22/2024 5:11 PM [facility] CHLORIDE S/P/B 106 97 - 115 MMOL/L 05/22/2024 5:11 PM [facility] CO2 30.6 21 - 32 MMOL/L 05/22/2024 5:11 PM [facility] CALCIUM S/P/B 9.4 8.5 - 10.1 MG/DL 05/22/2024 5:11 PM [facility] BILIRUBIN TOTAL S/P/B 0.4 0.2 - 1.2 MG/DL 05/22/2024 5:11 PM [facility] Comment: THIS ASSAY IS NOT RECOMMENDED FOR PATIENTS UNDERGOING TREATMENT WITH ELTROMBOPAG DUE TO THE POTENTIAL FOR FALSELY ELEVATED RESULTS. TOTAL PROTEIN S/P/B 7.7 6.4 - 8.2 G/DL 05/22/2024 5:11 PM [facility] ALBUMIN S/P/B 3.7 3.4 - 5.0 G/DL 05/22/2024 5:11 PM [facility] AST 14(L) 15 - 37 U/L 05/22/2024 5:11 PM [facility] ALT 17 14 - 55 U/L 05/22/2024 5:11 PM [facility] ALKALINE PHOSPHATASE S/P/B 65 50 - 136 U/L 05/22/2024 5:11 PM [facility] ANION GAP 0.4(L) 2 - 10 MMOL/L 05/22/2024 5:11 PM [facility] BUN CREATININE RATIO 21.2 6 - 26 05/22/2024 5:11 PM [facility] A/G RATIO 0.9(L) 1.0 - 2.0 RATIO 05/22/2024 5:11 PM [facility] GFR ESTIMATE >90 >90 ML/MIN/1.7 3 M2 05/22/2024 5:11 PM [facility] Comment: NOTE: eGFR is not calculated for patients <18 years of age or gender unknown. This is an estimated GFR calculation using the new CKD EPI creatinine equation without race and so does not require a correction factor for race. This estimated GFR should not be used for calculating drug doses. 05/22/2024 4:08 PM ASSOCIATE PROFESSOR OF PATHOLOGY [place] NP LABORATORY Final Result [facility] [address] [place] [address], [place] [phone] * (ABNORMAL) CBC W/DIFF AUTOMATED (05/22/2024 4:08 PM ASSOCIATE PROFESSOR OF PATHOLOGY) WBC 7.30 4.5 - 11.0 x10'3/uL 05/22/2024 4:44 PM [facility] RBC 4.29 4.20 - 5.40 x10'6/uL 05/22/2024 4:44 PM [facility] HGB 13.8 12.0 - 16.0 G/DL 05/22/2024 4:44 PM [facility] HCT 39.3 38.0 - 48.0 % 05/22/2024 4:44 PM [facility] MCV 91.6 81.0 - 99.0 FL 05/22/2024 4:44 PM [facility] MCH 32.2(H) 27.0 - 31.0 PG 05/22/2024 4:44 PM [facility] MCHC 35.1 32.0 - 36.0 G/DL 05/22/2024 4:44 PM [facility] RDW 12.7 11.5 - 14.5 % 05/22/2024 4:44 PM [facility] PLT 284 130 - 400 x10'3/uL 05/22/2024 4:44 PM [facility] MPV 9.1(L) 9.3 - 12.2 FL 05/22/2024 4:44 PM [facility] DIFFERENTIAL TYPE AUTOMATED DIFFERENTIAL 05/22/2024 4:44 PM [facility] NEUTROPHILS % 44.9 % 05/22/2024 4:44 PM [facility] LYMPHOCYTES % 37.8 % 05/22/2024 4:44 PM [facility] MONOCYTES % 9.6 % 05/22/2024 4:44 PM [facility] EOSINOPHILS 6.3 % 05/22/2024 4:44 PM [facility] BASOPHILS 1.1 % 05/22/2024 4:44 PM [facility] IMMATURE GRANS % 0.3 % 05/22/19 4:44 PM [facility] ABS. NEUTROPHILS 3.28 1.80 - 7.70 x10'3/uL 05/22/2024 4:44 PM [facility] ABS. LYMPHOCYTES 2.76 1.00 - 4.80 x10'3/uL 05/22/2024 4:44 PM [facility] ABS. MONOCYTES 0.70 0.24 - 0.86 x10'3/uL 05/22/2024 4:44 PM [facility] ABS. EOSINOPHILS 0.46(H) 0.04 - 0.36 x10'3/uL 05/22/2024 4:44 PM ASSOCIATE PROFESSOR OF PATHOLOGY [facility] ABS. BASOPHILS 0.08 0.01 - 0.08 x10'3/uL 05/22/2024 4:44 PM ASSOCIATE PROFESSOR OF PATHOLOGY [facility] ABS. IMMATURE GRANULOCYTES 0.02 0.00 - 0.49 x10'3/uL 05/22/2024 4:44 PM ASSOCIATE PROFESSOR OF PATHOLOGY [facility] 05/22/2024 4:08 PM ASSOCIATE PROFESSOR OF PATHOLOGY [place] NP LABORATORY Final Result Performing Organization Address [facility] [address]/[facility] Co de Phone Number [facility] [address] [place] [address], [place] [phone] * TROPONIN, QUANT (05/22/2024 4:08 PM ASSOCIATE PROFESSOR OF PATHOLOGY) Pathologist [facility] TROPONIN I HIGH SENSITIVITY <3 <54 ng/L 05/22/2024 5:11 PM ASSOCIATE PROFESSOR OF PATHOLOGY [facility] Comment: HIGH DOSES OF BIOTIN, TROPONIN-SPECIFIC AUTOANTIBODIES, AND ANTIBODY THERAPY CONTAINING HAMA MAY INTERFERE WITH THIS TEST RESULT. CORRELATION TO CLINICAL HISTORY AND PRESENTATION RECOMMENDED. 05/22/2024 4:08 PM ASSOCIATE PROFESSOR OF PATHOLOGY [place] NP LABORATORY Final Result Performing Organization Address City/[facility] [address]/ZIP Co de Phone Number [facility] [address] [place] [address], [place] [phone] * (ABNORMAL) URINALYSIS (05/22/2024 3:19 PM ASSOCIATE PROFESSOR OF PATHOLOGY) Pathologist [facility] SPECIMEN TYPE URINE CLEAN CATCH 05/22/2024 3:22 PM ASSOCIATE PROFESSOR OF PATHOLOGY [facility] COLOR (U) LIGHT ORANGE 05/22/2024 3:33 PM [facility] TRANSPARENCY TURBID 05/22/2024 3:33 PM [facility] SPECIFIC GRAVITY (U) 1.013 1.001 - 1.030 05/22/2024 3:33 PM [facility] U PH 6.5 5.0 - 9.0 05/22/2024 3:33 PM [facility] LEUKOCYTES (U) 25(A) NEGATIVE 05/22/2024 3:33 PM [facility] NITRITES NEGATIVE NEGATIVE 05/22/2024 3:33 PM [facility] PROTEIN RANDOM (U) 20 <30 MG/DL 05/22/2024 3:33 PM [facility] GLUCOSE (U) NORMAL NORMAL MG/DL 05/22/2024 3:33 PM [facility] KETONES MG/DL (U) NEGATIVE NEGATIVE MG/DL 05/22/2024 3:33 PM [facility] UROBILINOGEN NORMAL NORMAL MG/DL 05/22/2024 3:33 PM [facility] BILIRUBIN (U) NEGATIVE NEGATIVE MG/DL 05/22/2024 3:33 PM [facility] BLOOD (U) 3+(A) NEGATIVE 05/22/2024 3:33 PM [facility] WBC/HPF 88(H) <6 /HPF 05/22/2024 3:33 PM [facility] RBC/HPF >100(H) <6 /HPF 05/22/2024 3:33 PM [facility] BUDDING YEAST RARE(A) NONE /HPF 05/22/2024 3:33 PM [facility] SQUAMOUS EPITHELIALS RARE /HPF 05/22/2024 3:33 PM [facility] URINE SPECIMEN OBTAINED BY CLEAN CATCH PROCEDURE / Unknown 05/22/2024 3:19 PM ASSOCIATE PROFESSOR OF PATHOLOGY us [place] LIBRARY CATALOGING TECHNICIAN URINE ORDERABLES Final Result [facility] [address] [place] [address], * XR CHEST PORTABLE (05/22/2024 3:02 PM ASSOCIATE PROFESSOR OF PATHOLOGY) Anatomical Region Laterality Modality Chest Radiographic Nuris ging 05/22/2024 3:04 PM ASSOCIATE PROFESSOR OF PATHOLOGY Impressions 05/22/2024 3:05 PM ASSOCIATE PROFESSOR OF PATHOLOGY Impression: Unremarkable one view chest; no radiographic evidence of acute/active cardiopulmonary disease Ordered By: VIN VEGSA Interpreted By: Lisa Edwards MD, 05/22/2024 3:04 PM Narrative 05/22/2024 3:05 PM ASSOCIATE PROFESSOR OF PATHOLOGY [address] [address] Examination: Chest x-ray 1 view Exam date/time: [...] Procedure Note Lisa Edwards MD - 05/22/[address] [address] Examination: Chest x-ray 1 view Exam date/time: [...] By: Lisa Edwards MD, 05/22/2024 3:04 PM Result [facility] [place] LIBRARY CATALOGING TECHNICIAN GENERAL IMAGING Final Result * OUTSIDE LAB COVID-19 (05/16/2024) CORONAVIRUS SARS COV 2 PCR (RESP) NOT DETECTED NOT DETECTED [facility] ONBASE 05/16/2024 Result [employer] [facility] Scanned SCANNING Final Resu lt HS ONBASE * CT GENERIC (05/16/2024) Only the most recent of2 resultswithin the time period is included. Anatomical Region Laterality Modality Other 05/16/2024 [employer] [facility] Scanned SCANNING Final Resu lt * IMAGE GENERIC (05/16/2024) Only the most recent of2 resultswithin the time period is included. Anatomical Region Laterality Modality Other 05/16/2024 Result [employer] [facility] Scanned SCANNING Final Resu lt * (ABNORMAL) MG/PCCL UDS W CONF (05/03/2024 9:46 AM ASSOCIATE PROFESSOR OF PATHOLOGY) RESULT SUMMARY [facility] Comment: Prescribed Prescribed Not Prescribed Consistent Inconsistent Inconsistent Hydrocodone Marijuana Metabolite Xanax(TM) PRESCRIBED DRUG 1 (U) Xanax(TM) [facility] PRESCRIBED DRUG 2 (U) Hydrocodone [facility] FENTANYL SCREEN (U) NEGATIVE <0.5 ng/mL [facility] [...] DIAGNOSTICS [facility] BENZODIAZEPINES COMMENTS [facility] Comment:See Benzodiazepines Notes, LDT Notes COCAINE METABOLITE PM (U) NEGATIVE <150 ng/mL [facility] MARIJUANA METABOLITE PM (U) POSITIVE(A) <20 ng/mL [facility] [place] METABOLITE PM CONF (U) 221(H) <5 ng/mL [facility] [place] METAB PM MM CONF (U) INCONSISTENT( A) [facility] MARIJUANA COMMENTS [facility]AL[facility] Comment:See Marijuana Notes, LDT Notes METHADONE PM (U) NEGATIVE <100 ng/mL [facility] OPIATES PM (U) POSITIVE(A) <100 ng/mL [facility] CODEINE PM (U) NEGATIVE <50 ng/mL [facility] [place] HYDROCODONE PM (U) 1,518(H) <50 ng/mL [facility] HYDROCODONE PM MEDMATCH (U) CONSISTENT [facility] [place] HYDROMORPHONE PM (U) 391(H) <50 ng/mL [facility] [place] HYDROMORPHONE PM MEDMATCH CONSISTENT [facility] MORPHINE PM (U) NEGATIVE <50 ng/mL [facility] NORHYDROCODONE PM (U) 4,279(H) <50 ng/mL [...] AGUSTINA OXIDANT NEGATIVE <200 mcg/mL [facility] WELIA HEALTHE NOTE [facility] Comment: This drug testing is for medical [...] analytical performance characteristics have been determined by [facility]. It has not been cleared or approved by the FDA. This assay has been validated pursuant to the CLIA regulations and is used for clinical purposes. medJumpStart WirelessTCH(R) enables providers to identify if drug use is consistent or inconsistent with a corresponding prescribed medication(s) list. Healthcare Providers needing Interpretation assistance, please contact us at [phone] ( ) M-F, 8am to 10pm EST URINE SPECIMEN / Unknown 05/03/2024 9:46 AM ASSOCIATE PROFESSOR OF PATHOLOGY 05/04/2024 10:38 PM ASSOCIATE PROFESSOR OF PATHOLOGY Narrative Resulting Agency Comment Performing Organization Information: [facility] ID: [facility] Address: [address] [place] [address] Director: Shon Moe Site ID: [place] [facility] Address: [address] [place] [address] Director: Suman Paiz MD Starla Arshad DO URINE ORDERABLES Final R esult [facility] - DIMPLE ORDERS [facility] [address] [place], [place] [address] [address] [place] [address] * (ABNORMAL) URINALYSIS MICRO ONLY (04/04/2024 10:08 AM ASSOCIATE PROFESSOR OF PATHOLOGY) RBC/HPF PACKED(A) 0 - 3 /HPF 04/04/2024 3:07 PM ASSOCIATE PROFESSOR OF PATHOLOGY [facility] WBC/HPF 0-3 0 - 3 /HPF 04/04/2024 3:07 PM ASSOCIATE PROFESSOR OF PATHOLOGY [facility] EPI/HPF 0-3 /HPF 04/04/2024 3:07 PM ASSOCIATE PROFESSOR OF PATHOLOGY [facility] BACTERIA (U) TRACE(A) NONE SEEN 04/04/2024 3:07 PM ASSOCIATE PROFESSOR OF PATHOLOGY [facility] URINE SPECIMEN OBTAINED BY CLEAN CATCH PROCEDURE / Unknown 04/04/2024 10:08 AM ASSOCIATE PROFESSOR OF PATHOLOGY Starla Arshad DO URINE ORDERABLES Final R esult [facility] [address] [place] [address], * (ABNORMAL) LIPID PANEL (04/05/2023 8:24 AM ASSOCIATE PROFESSOR OF PATHOLOGY) CHOLESTEROL 135 <200 MG/DL 04/05/2023 4:46 PM [facility] TRIGLYCERIDES 127 <150 MG/DL 04/05/2023 4:46 PM [facility] HDL 37(L) >40 MG/DL 04/05/2023 4:46 PM ASSOCIATE PROFESSOR OF PATHOLOGY [facility] LDL-C 73 <100 MG/DL 04/05/2023 4:46 PM [facility] VLDL CALCULATION 25 5 - 28 MG/DL 04/05/2023 4:46 PM ASSOCIATE PROFESSOR OF PATHOLOGY [facility] CHOL/HDL RATIO 3.6 0.0 - 4.0 04/05/2023 4:46 PM [facility] LDL/HDL 2.0 0.41 - 2.13 04/05/2023 4:46 PM ASSOCIATE PROFESSOR OF PATHOLOGY [facility] NON HDL CHOLESTEROL 98 <140 MG/DL 04/05/2023 4:46 PM ASSOCIATE PROFESSOR OF PATHOLOGY [facility] 04/05/2023 8:24 AM ASSOCIATE PROFESSOR OF PATHOLOGY Starla Arshad DO LABORATORY Final Re sult [facility] [address] [place] [address], [place] [phone] * HEPATITIS C ANTIBODY (04/05/2023 8:24 AM ASSOCIATE PROFESSOR OF PATHOLOGY) HEPATITIS C AB NON-REACTI VE NON-REACT RAUL 04/05/2023 6:53 PM ASSOCIATE PROFESSOR OF PATHOLOGY [facility] Comment: ANTIBODIES TO HCV NOT DETECTED. DOES NOT EXCLUDE THE POSSIBILITY OF EXPOSURE TO HCV. 04/05/2023 8:24 AM ASSOCIATE PROFESSOR OF PATHOLOGY us Starla Arshad DO LABORATORY Final Re sult [facility] [address] [place] [address], [place] [phone] [id number] * MG DIAG W WILMER BILAT DIGI [...] Return for Routine Follow-Up: Yes Referred By: SATRLA ARSHAD Interpreted By: Nathaniel De Guzman MD, 09/09/2020 12:52 PM Narrative 09/09/2020 12:56 PM CDT Examination: Bilateral digital diagnostic mammogram with CAD. [id number] Clinical history: Left breast lump and tenderness. [...] demonstrate any discrete solid or cystic mass. [place] appearing tissue architecture is demonstrated. Physical exam surveillance is advised with any further evaluation at this point guided on that basis. From a mammographic standpoint, routine follow-up in one year would seem adequate. These findings were discussed with the patient. Starla Arshad DO MAMMO Final Re sult from Last 3 Months or Most Recently Relevant to Health Maintenance Insurance [place] [address] MEDICAID Advance Directives * Full Code (Latest Code Status on File) Date Activated Date Inactivated Comments 09/22/2020 12:40 PM 09/23/2020 12:52 PM Care Teams Human Services Assistant Relationship Specialty Start Date End Date Starla Arshad DO [address] [place] [id number] PCP - General FAMILY PRACTICE 08/19/20
--- OUTSIDE RECORDS SUMMARY | 2024-06-28 00:09 | XMS_ITS | Data Portability ---
Author Organization [facility] OFFICE Address [address] [place] [address] Care Team Providers Care Air Launch Weapons Technician Name Role Phone JESUS MACEDO Primary Care Provider [phone] JESUS MACEDO Referring Provider Assessment No assessment [...] By Organization Details Last Modified Time 04/30/2020 79496 Exercise advised Low cholesterol diet advised Low sodium diet advised [email or web address] Not available 04/30/2020 16:38:42 Scribed by Kamila Michele [facility] [email or web address] Not available 04/30/2020 16:38:44 Reason for [...] bibasiller atelectasis or infection,clinical correlation. Efra Whitman [facility] [place] [facility] 05/03/2020 10:01:32 D-dimer Feu, Qn, Ia, Blood : D-dimer 04/01/20:0.37 Efra Whitman [facility] 05/03/2020 09:54:26 Cbc W/ Diff : 04/01/20:WBC 7.6,RBC 4.68,HGB 14.8,HCT 41.8,PLT 251. Efra Whitman [facility] 05/03/2020 09:50:44 Cmp, Serum Or Plasma : 04/02/20:Na 139,K 3.4,Cl 102,CO2 32,GLU 99,BUN 11,Cr 0.6,Mg 2.1 [facility] [place] [facility] 05/03/2020 09:54:26 Lipid Panel, Blood : 04/02/20: TC 167,TG 220,LDL 107,HDL 30. Efra Whitman [facility] 05/03/2020 09:54:26 Problems Name Problem SNOMED Code Status Onset Date Resolution Date Notes Provider Name and Address Organization Details Recorded Time Essential hypertension 46139131 Active 2020 [facility] [place] [facility] 15:22:30 Cerebrovascula r accident 409424607 Active 2020 [facility] 15:22:39 Hypercholester olemia 28560638 Active 2020 [facility] 15:22:56 Depressive disorder 93441301 Active 2020 [facility] 15:23:04 Problem Notes None recorded. Procedures Surgical History Date Name Laterality Status Provider Name and Address Organization Details Recorded Time Hysterectomy completed [facility] [place] [facility] 04/30/2020 15:24:35 Cholecystectomy completed [facility] [place] [facility] 04/30/2020 15:24:43 Imaging Results Imaging Date Name [...] Name and Address Organization Details Recorded Time 43427 sulfobrom ophthalei n sodium medicatio n Not available Not available Not available 04/30/202036404 0 RxNorm Renae [facility], [place] [facility] 15:21:51 20273 tetracycl ine medicatio n Not available Not available Not available 04/30/2020 55338 RxNorm Renae [facility], [place] [facility] 15:22:03 [...] Available Not Available Not Available Fluzone Quad 5211-3797 (PF) 60 mcg (15 mcg x 4)/0.5 [...] Last Updated DateTime 165.1 cm 28.3 kg/m2 06920.7 g 84 /min 18 /min 94 % 94 % 97.2 [degF] 170 mm[Hg] 100 mm[Hg] Renae Pineda [facility] [place] [facility] 15:31:15 Social History Question Answer Notes LastModified by Organizat ion Details LastModified Time Tobacco Smoking Status Current Every Day Smoker Renae wright [facility] [place] [facility] 04/30/2020 15:23:42 Do You Have An Advance Directive? No [facility] Information not available 04/30/2020 What Is Your Level Of Alcohol Consumption? Occasional [facility] Information not available 04/30/2020 What Is Your Level Of Caffeine Consumption? None [facility] Information not available 04/30/2020 How Much [...] Father No current problems or disability Stroke [facility] Not available 04/18 15:23:31 Mother No [...] SNOMED-CT Code Diagnosis ICD10 Code Diagnosis Note 42167 MD Izzy Naqvi Office [address] [address] 04/30/2020 14:29:44 04/30/2020 15:51:37 Atypical chest pain 743929509 R07.89 Treadmill Myoview Stress test, has high Wayne Risk score. Has Known CAD, or CAD risk equivalent . To look for any ischemia. 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 F17.200 Cessation highly advised Essential hypertension 83292484 I10 Hyperlipidemia 04078530 E78.5 Needs to keep LDL less than 100, and HDL more than 40.Current ly not on statin therapyWil l get fasting lipids for follow-up Peripheral vascular disease 306015303 I73.9 Will get arterial doppler, to evaluate severity of peripheral vascular disease Health Concerns Section Related Observation LastModified by Organization Detai ls LastModified Time None Recorded Concern Status LastModified by Organization Details LastModified Time None Recorded Advance Directives Directive N: Payers Encounter Date Sequence Insurance Name Policy Number Policy Brown Covered Member ID Brown Member ID Guarantor Name 04/30/2020 2 MEDICAID-[place]: [place] [employer] Jeniffer Weller [id number] Jeniffer Weller 04/30/2020 1 MEDICARE-OR (MEDICARE) Jeniffer Weller [id number] Jeniffer Weller Notes Date Note Type Note Provider Name and Address Organization Details Recorded Time 04/30/2020 text/html 04/30/2020 CC: chest pain Patient is a 64-year-old female with a past medical history of HLD, HTN, COPD, and CKD who is seen in cardiac consultation with a chief complaint of chest pain and hospital follow-up. She was admitted to [facility] on 04/01/2020 with chest pain. [...] She denies ETOH abuse. Merrick Lin MD [address], [place], [address], [place] [facility] 04/30/2020 16:39:25 OBGyn Episode No OBEpisode recorded.
--- NOTE | 2024-06-28 06:27 | WPDHPUPDATE1 ---
History and Physical Update Update Date/Time: 06/28/24 06:27 History and Physical has been reviewed, including an updated exam of the patient. There are NO changes in the patient's condition. Risks, benefits, and alternatives have been discussed and questions answered. Patient agrees to proceed with procedure.
[2024-06-28] MEDS: LACTATED RINGERS 1,000 ML 30 ML IV CONT ×2 (11:00→14:06)
--- NOTE | 2024-06-28 11:56 | P.PNAN_ITS ---
Anes - Initial Pre Proc Eval Procedure: Operation Date: 06/28/24 12:30 Proposed Procedures p Cystoscopy Possible Bladder Biopsy, Bilateral Retrograde Pyelogram, Possible Bilateral Ureteroscopy - Tacos Bowers MD Date/Time: 06/28/24 11:56 Surgeon: Tacos Bowers MD Pre Op Diagnosis: gross hematuria Patient Data Age: 68 Gender: F Height: 1.66 m Weight: 65.8 kg Allergies Allergy/AdvReac Type Severity Reaction Status Date / Time amitriptyline (From Elavil) Allergy Unknown Confusion Verified 06/18/24 14:14 Penicillins Allergy Unknown Rash Verified 06/18/24 14:14 Sulfa (Sulfonamide Allergy Unknown Hives Verified 06/18/24 14:14 Antibiotics) sulfanilamide Allergy Unknown Hives Verified 06/18/24 14:14 tetracycline Allergy Unknown Nausea Verified 06/18/24 14:14 ciprofloxacin AdvReac Intermediate Shakiness Verified 06/18/24 14:14 codeine AdvReac Unknown N/V Verified 06/18/24 14:14 doxycycline AdvReac Nausea and Verified 06/18/24 14:14 Vomiting Home Medications ?Medication ?Instructions ?Recorded ?Confirmed ?Type aspirin 81 mg tablet,delayed 81 mg PO DAILY 04/05/19 06/18/24 History release (Aspir-) quetiapine 300 mg tablet (Seroquel) 300 mg PO QPM #90 tabs 01/07/20 06/18/24 Rx hydrochlorothiazide 25 mg tablet 25 mg PO DAILY #90 tabs 08/27/20 06/18/24 Rx alprazolam 1 mg tablet (Xanax) 1 mg PO TID 01/10/21 06/18/24 History atorvastatin 40 mg tablet (Lipitor) 40 mg PO HS 01/10/21 06/18/24 History bupropion HCl 150 mg 24 hr tablet, 150 mg PO HS 01/10/21 06/18/24 History extended release (Wellbutrin XL) isosorbide mononitrate 30 mg 60 mg PO QACLUNCH 01/10/21 06/18/24 History tablet,extended release 24 hr nitroglycerin 0.4 mg sublingual 0.4 mg sublingual ONCE 01/10/21 06/18/24 History tablet potassium chloride 10 mEq 10 meq PO DAILY 01/10/21 06/18/24 History tablet,extended release (K-Tab) carvedilol 6.25 mg tablet (Coreg) 12.5 mg PO Q12H 03/02/22 06/18/24 History venlafaxine 150 mg See Rx Instructions .Route .COMPLEX 03/02/22 06/18/24 History capsule,extended release 24 hr (Effexor XR) ranolazine 500 mg tablet,extended 500 mg PO Q12HR 30 days #60 tabs 03/04/22 06/18/24 Rx release,12 hr (Ranexa) cholecalciferol (vitamin D3) 125 125 mcg PO DAILY 11/12/22 06/18/24 History mcg (5,000 unit) tablet (Vitamin D3) hydrocodone bitartrate 10 mg 10 mg PO Q12H 12/16/22 06/18/24 History capsule, oral only, extended rel 12 hr hydrocodone 10 mg-acetaminophen 1 tablet PO PRN PRN pain 06/18/24 06/18/24 History 325 mg tablet oxybutynin chloride 10 mg 10 mg PO HS 06/18/24 06/18/24 History tablet,extended release 24 hr Patient hx anesthesia problems: none Family hx anesthesia problems: none Results Review: All pre-operative results and documents have been reviewed as part of the pre- operative evaluation. [facility] Past Medical History Medical History Emphysema lung Screening for colon cancer Screening for breast cancer Postmenopausal Hx of pancreatitis Depression Kidney stones Kidney disease Urinary frequency High cholesterol Pneumonia Vision abnormalities Weight gain Cholecystectomy planned Anxiety Surgical History Surgical History H/O excision of mass 11/22/22 Excision of 5 cm perianal cyst History of cholecystectomy Hx of tonsillectomy History of partial hysterectomy H/O colonoscopy History of esophagogastroduodenoscopy (EGD) History of laryngoscopy Family History Family History Sibling Patient's brother is in good health Dementia Mother Family history of coronary artery disease Acute myocardial infarction Father Patient's father is Acute myocardial infarction Cerebrovascular accident Unknown Heart disease Cerebrovascular accident Other Family history of mental disorder Social History Social History Smoking packs per day: 1 Smoking cigarettes per day: 20.0 Years smoked: 50 Smoking pack-years: 50.00 Smoking status: Current every day smoker Tobacco type: cigarettes Second hand tobacco smoke exposure: No Alcohol intake: never Substance use: current Substance use type: marijuana Other substance usage details: Daily Last use: 03/02/22 Lack of Transportation: No Lack of Food: Never True Current Housing: I Have Housing Concerned About Future Housing: No Difficulty Paying Gas/Electric Bills: No Difficulty Paying for Meds: No Currently Unemployed: No Education: Decline to Answer Difficulty w/ Childcare or Family Care: No Living arrangements: alone Spiritual care concerns: No Anes - Eval Final PreProcedure Day of Procedure 06/28/24 11:56 Patient weight: normal Lungs: normal air movement Airway: Mallampati scale class II and special considerations (Edentulous. ) Neurological: alert and oriented Last oral intake: >/= 8 hours ASA classification: IV Emergent: no Anesthetic plan: proceed Anesthesia type and monitoring: general LMA and standard monitoring Results Review: All pre-operative results and documents have been reviewed as part of the pre- operative evaluation. HTN, CAD w reported blockage to R CA, no PTCA, COPD w 1 ppd cigs/daily, marijuana daily. Informed Consent: The patient's anesthetic plan and its attendant risks and benefits were discussed with the patient/family/POA. Questions were solicited and answers provided to the satisfaction of the patient/family/POA.
[2024-06-28] MEDS: ceFAZolin 2 GM/D5W 50 ML 2 GM/50 ML BAG IVPB (12:14)
[2024-06-28] MEDS: LIDOCAINE 2% GEL UROJET 10 ML PKG MUCOUS MEM (12:32)
--- NOTE | 2024-06-28 13:23 | W.PM.PROC2 ---
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 Cystoscopy was undertaken with a 19 F rigid cystoscope and urine was collected for cytology. The bladder was very carefully stent examined in found to be absent of any intravesical neoplasm or areas of mucosal/abnormalities. I could immediately see that there was bloody urine effluxing from her right ureteral orifice. I did place a open-ended ureteral catheter in the left collecting system and obtained urine for cytology. I then did a similar maneuver on the right side. Bulb tip catheter was used to obtain bilateral retrograde pyelograms, starting on the left. Left urinary collecting system were without areas of obstruction filling defect or other identifiable pathology. Right retrograde pyelogram showed a filling defect in the proximal ureter. Placed a 0.03 in glidewire in the renal pelvis, dilated the distal ureter with an 8 F 10 F dilator. Digital ureteroscopy was undertaken. All calices were carefully examined. 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 I obtained biopsies with a cold cup and was able to remove a portion of this neoplasm with a 1.9 F disposable stone basket. I opted to attempt laser ablation. Using a 200 micron Socrates laser fiber on a soft tissue ablation setting was able to ablate this neoplasm in its entirety, grossly. Placed a 4.8 F variable length stent. I will plan to leave the stent for 3-4 weeks followed by repeat ureteroscopy Pathology Yes Complications No immediate complications Condition Stable Disposition PACU
[2024-06-28] MEDS: fentaNYL CITRATE INJ (*CRX) 100 MCG/2 ML VIAL 25 MCG IV PUSH ×2 (14:04→14:07)
--- NOTE | 2024-06-28 14:46 | SUR.PHASEII ---
MD Bowers at bedside to discuss surgery with patient. Patient in 8/10 pain. New orders for RN to give 15mg toradol IVP once per MD Bowers.
[2024-06-28] MEDS: KETOROLAC 15 MG/ML VIAL (*BKC) IV PUSH (14:48)
--- NOTE | 2024-06-28 14:51 | SUR.PHASEII ---
Molding Press Operator anesthesia notified - pt requesting pain pill prior to discharge. New orders for RN to give hydrocodone acetaminophen 5-325mg PO once per Aditi Rolon (MORIS). Patient states she takes hydrocodone at home and tolerates it well.
[2024-06-28] MEDS: HYDROcodone/acetaminophen (*CRX) 5-325 MG TABLET 1 TAB PO (14:59)
== END 2024-06-28 15:34 | disposition home or self-care (01) ==
PROVIDERS: PCP Student in an Organized Health Care Education/Training Program; Visit Provider Urology
PROC: 0TBB8ZX Excision of Bladder, Via Natural or Artificial Opening Endoscopic, Diagnostic (ICD-10-PCS; CPT 52204; principal; 2024-06-28 12:30)
DX: C66.1 Malignant neoplasm of right ureter (principal); E78.00 Pure hypercholesterolemia, unspecified; J43.9 Emphysema, unspecified; E55.9 Vitamin D deficiency, unspecified; F41.9 Anxiety disorder, unspecified; I10 Essential (primary) hypertension; I25.118 Atherosclerotic heart disease of native coronary artery with other forms of angina pectoris; E87.6 Hypokalemia; M62.838 Other muscle spasm; F13.20 Sedative, hypnotic or anxiolytic dependence, uncomplicated; F31.31 Bipolar disorder, current episode depressed, mild; I63.9 Cerebral infarction, unspecified; I73.9 Peripheral vascular disease, unspecified; I77.1 Stricture of artery; K21.9 Gastro-esophageal reflux disease without esophagitis; M17.12 Unilateral primary osteoarthritis, left knee; R33.9 Retention of urine, unspecified; R35.0 Frequency of micturition; R39.11 Hesitancy of micturition; R39.15 Urgency of urination; R73.03 Prediabetes; G89.29 Other chronic pain; M25.552 Pain in left hip; M48.061 Spinal stenosis, lumbar region without neurogenic claudication; M51.369 Other intervertebral disc degeneration, lumbar region without mention of lumbar back pain or lower extremity pain; M54.16 Radiculopathy, lumbar region; M54.50 Low back pain, unspecified; M43.16 Spondylolisthesis, lumbar region; Z79.82 Long term (current) use of aspirin; F17.210 Nicotine dependence, cigarettes, uncomplicated; F12.90 Cannabis use, unspecified, uncomplicated; Z79.891 Long term (current) use of opiate analgesic; Z98.890 Other specified postprocedural states; Z90.49 Acquired absence of other specified parts of digestive tract; Z20.6 Contact with and (suspected) exposure to human immunodeficiency virus [HIV]; Z87.442 Personal history of urinary calculi; Z82.49 Family history of ischemic heart disease and other diseases of the circulatory system
CPT/HCPCS: 52354; 52332; 74420; 88108; 88305; A9270; C1758; C1769; C1894; C2617; J0690; J1885; J2003; J2250; J2405; J2704; J3010; J7120; Q9966

== ENCOUNTER 2024-08-01 09:43 | Outpatient (CLI) | payer MEDICARE, MEDICAID, SELFPAY ==
--- NOTE | ~2024-08-01 | CT_ITS ---
CT soft tissue neck w con Ordering provider: Jimmy Doyle, DO History: 68 years Female with left-sided jaw swelling . Comparison: None. Technique: CT soft tissues neck was performed with contrast. The dose-length product was 479.93 mGy-c m. Findings: LOWER HEAD: The visualized brain parenchyma, optic globes/orbits and mastoids are unremarkable. The visualized paranasal sinuses are well aerated. SALIVARY GLANDS: Symmetric. THYROID: Homogeneous enhancement. SUPRAHYOID DEEP SPACES: Symmetric and unremarkable CAROTID ARTERIES: Mildly calcified atherosclerotic disease. JUGULAR VEINS: Patent TONSILS: Normal. ORAL CAVITY: Unremarkable. PHARYNX, LARYNX AND TRACHEA: Patent and normal. No prevertebral soft tissue swelling. SUPERFICIAL SOFT TISSUES: Asymmetric enlargement of the left parotid gland with surrounding inflammat ory change and scattered nonpathologically enlarged lymph nodes within the superficial parotid lymph node station. No discrete mass is appreciated within the inflamed, enlarged, left parotid gland. No rim-enhancing fluid collection is identified within the left parotid gland THORACIC INLET/VISUALIZED UPPER CHEST: Unremarkable SKELETAL: Age appropriate degenerative changes. IMPRESSION: 1. Findings suggesting left-sided parotiditis, without an obstructing stone visualized Reviewed, dictated and finalized at location A. IMPRESSION: 1. Findings suggesting left-sided parotiditis, without an obstructing stone vi sualized
[2024-08-01 10:24] LABS: Estimated Glomerular Filt Rate > 60
--- OUTSIDE RECORDS SUMMARY | 2024-08-01 10:36 | XMS_ITS | Encounter Summary ---
Author Organization [facility] Address [facility] [place] [address] Care Team Providers Care Fire Technician Name Role Phone Jimmy Doyle DO Primary Care Provider + Reason for Visit * Reason Onset Date Comments Lab Order 07/31/2024 Encounter Details Date Type Department Care Team (Late st Contact Info) Description 07/31/2024 Telephone [facility] Family [facility] Internal Medicine [facility] [address] [place] [address] Jimmy Doyle DO [address] [place] [address] Lab Order Social History Tobacco Use Types Packs/Day Years Used Date Smoking Tobacco: Every Day Cigarettes 1 55 Started: [birth year]/19[birth year]1969 Smokeless Tobacco: Never Comments:trying to quit. 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 Asking that results be faxed to them. documented in this encounter Plan of Treatment Upcoming Encounters Date Type Department Care Team (Late st Contact Info) Description 08/31/2024 12:00 PM CDT Office Visit [facility] [phone] Abhi Aguilar MD [address] [place] [address] [address] [place] [address] documented as of this encounter Goals Goal [...] Depression Total Score: 10 025 9:55 AM SUPERINTENDENT STEVEDORING documented as of this encounter Care Teams Fire Technician Relationship Specialty Start Date End Date Jimmy Doyle DO [address] [place] [id number] PCP - General FAMILY PRACTICE 08/19/20 documented as of this encounter
--- OUTSIDE RECORDS SUMMARY | 2024-08-01 10:36 | XMS_ITS | Clinical Summary ---
Author Organization [facility] Address Critical access hospital[address] [place] [address] Care Team Providers Care Tip Out Worker Name Role Phone Starla Arshad Vladimir QURESHI Primary Care Provider + Allergies Active Allergy Reactions Criticality Noted Date Comments Amitriptyline Unknown,Rash High 01/16/2018 Psychiatric changes Bromsulphalein Unknown 08/19/2020 Ciprofloxacin Shakiness High 02/05/2020 Codeine Nausea and Vomiting,Unknown 01/16/2018 Doxycycline Nausea and Vomiting 06/03/2024 Lurasidone Hcl Unknown 01/16/2018 Oxybutynin Unknown 02/05/2020 Penicillins Rash,Unknown Low 01/16/2018 Sulfa Antibiotics Hives,Unknown 01/16/2018 Sulfanilamide Hives 06/03/2024 Tetracycline Nausea Only 02/05/2020 Medications aspirin EC [...] 911 25 tablet 2 07/07/19 24 Active ondansetron (ZOFRAN-ODT) 4 MG disintegrating [...] BEDTIME 90 tablet 2 03/19/20 24 Active potassium chloride CR (KLOR-CON M) 10 MEQ tabletIndications :Hypopotassemia TAKE 1 TABLET(10 MEQ) BY MOUTH DAILY 90 tablet 05/18/19 25 Active ranolazine ER (RANEXA) 500 MG [...] daily. 90 tablet 3 06/23/19 25 Active ALPRAZolam (XANAX) 0.5 MG tabletIndications :Anxiety Take 1 tablet (0.5 mg total) by mouth 3 (three) times daily as needed for Anxiety. 90 tablet 07/12/19 25 Active carvedilol (COREG) 12.5 MG tabletIndications :Essential hypertension TAKE 1 TABLET BY MOUTH TWICE DAILY, EVERY 12 HOURS, WITH MEALS OR FOOD 180 tablet 1 07/24/19 25 Active QUEtiapine (SEROQUEL) 300 MG tabletIndications :Bipolar affective disorder, currently depressed, mild (CMS/HCC HHS/HCC) TAKE 1 TABLET(300 MG) BY MOUTH EVERY NIGHT AT BEDTIME 90 tablet 1 07/24/19 25 Active isosorbide mononitrate ER (IMDUR) 30 MG 24 hr tabletIndications :Primary hypertension TAKE 3 TABLETS(90 MG) BY MOUTH DAILY 270 tablet 1 07/24/19 25 Active oxybutynin XL (DITROPAN-XL) 10 MG 24 hr tabletIndications :Incomplete emptying of bladder TAKE 1 TABLET(10 MG) BY MOUTH EVERY NIGHT AT BEDTIME 90 tablet 07/28/19 25 Active HYDROcodone-aceta minophen (NORCO) 10-325 MG tabletIndications :Chronic Pain Take 1 tablet by mouth every 8 (eight) hours as needed for Pain. Indications: Chronic Pain 90 tablet 07/31/19 25 Active isosorbide mononitrate ER (IMDUR) 30 MG 24 hr tabletIndications :Primary hypertension Take 3 tablets (90 mg total) by mouth daily. 270 tablet 3 08/01/19 24 2024 Discontinued oxybutynin XL (DITROPAN-XL) 10 MG 24 hr tabletIndications :Incomplete emptying of bladder TAKE 1 TABLET(10 MG) BY MOUTH EVERY NIGHT AT BEDTIME 90 tablet 04/24/19 25 2024 Discontinued carvedilol (COREG) 12.5 MG tabletIndications :Essential hypertension TAKE 1 TABLET BY MOUTH TWICE DAILY, EVERY 12 HOURS, WITH MEALS OR FOOD 180 tablet 04/24/19 25 2024 Discontinued QUEtiapine (SEROQUEL) 300 MG tabletIndications :Bipolar affective disorder, currently depressed, mild (CMS/HCC HHS/HCC) TAKE 1 TABLET(300 MG) BY MOUTH EVERY NIGHT AT BEDTIME 90 tablet 04/24/19 25 2024 Discontinued ALPRAZolam (XANAX) 0.5 MG tabletIndications :Anxiety Take 1 tablet (0.5 mg total) by mouth 2 (two) times daily as needed for Anxiety. 60 tablet 06/13/19 25 2024 Discontinued(R eorder) cefdinir (OMNICEF) 300 MG Cap capsuleIndication s:Dysuria Take 1 capsule (300 mg total) by mouth 2 (two) times daily. 20 capsule 06/14/19 25 2024 Discontinued(T herapy completed) HYDROcodone-aceta minophen (NORCO) 10-325 MG tabletIndications :Chronic Pain Take 1 tablet by mouth every 8 (eight) hours as needed for Pain. Indications: Chronic Pain 90 tablet 06/26/19 25 2024 Discontinued(R eorder) Active Problems Problem Noted Date Diagnosed Date Ureteral cancer, right ([facility]) 025 Bipolar affective disorder, currently depressed, mild ([facility]) 05/03/2023 Sedative, hypnotic or anxiol ytic dependence, uncomplicated ([facility]) 03/25/2022 PAD (peripheral artery disease) 02/19/2022 Right iliac artery stenosis 02/19/2022 Allergies 07/31/2021 Right lower quadrant abdominal pain 07/31/2021 Tobacco abuse 07/31/2021 Radiculopathy, lumbar region 12/29/2020 Other intervertebral disc degeneration, lumbar r egion 12/29/2020 Spondylolisthesis of lumbar region 12/29/2020 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 10/01/2020 Degenerative [...] 08/18/2020 Nausea 08/18/2020 Nicotine dependence 08/18/2020 On mcc drug therapy 08/18/2020 Polyarthritis 08/18/2020 Postmenopausal status 08/18/2020 Primary osteoarthritis of left knee 08/18/2020 Triggering of digit 08/18/2020 Vitamin D deficiency 08/18/2020 Cerebrovascular accident ([facility]) 04/30 Body mass index (BMI) [...] Encounters Date Type Department Care Team Description 08/01/2024 8:20 AM CDT Office Visit [address] [phone] Starla Arshad, DO Bipolar Disorder; Spinal Stenosis ; Emphysema; Coronary Artery Disease; Hypertension 08/01/[address] [address] Starla Arshad, DO Information 08/01/2024 Travel 07/31/[address] [phone] Starla Arshad, DO Lab Order 07/30/[address] [address] Starla Arshad, DO Medication Request 07/11/[address] [address] Starla Arshad, DO Medication Request 06/28/2024 Scan [employer] INFO SRVCS Scanned, [facility] Procedure (SCAN); Image (SCAN); Pathology (SCAN) 06/25/2024 Telephone [facility] [address] [address] Starla Arshad P, DO Refill Request 06/22/2024 Telephone [facility] [address] [phone] Starla Arshad P, DO Refill Request; Advice 06/20/2024 Telephone [facility] [address] [address] Abhi Aguilar MD Surgical Clearance 06/14/2024 1:40 PM SOFTWARE ENGINEER Allied Health/Nurse Visit [facility] [address] [phone] Starla Arshad P, DO UTI 06/14/2024 - 06/14/2024 11:59 PM SOFTWARE ENGINEER Hospital Encounter [facility] [address] [place] [address] Starla Arshad P, DO Discharge Disposition: Home or Self Care (Routine Discharge) 06/14/2024 Travel 06/12/2024 Telephone [facility] [address] [phone] Starla Arshad P, DO Refill Request 06/03/2024 Scan [employer] INFO SRVCS Scanned, Doc Med [facility] Lab (SCAN) 05/23/2024 Telephone [facility] [address] [phone] Starla Arshad P, DO Medication Request 05/22/2024 3:56 PM SOFTWARE ENGINEER - 05/22/2024 9:24 PM SOFTWARE ENGINEER Emergency [facility] [place] [address] Kathleen Lilly MD Urinary Symptoms; Dizziness Discharge Disposition: Home or Self Care (Routine Discharge) 05/22/2024 Travel 05/17/2024 Telephone [facility] [address] [place] [address] Starla Arshad, DO Information 05/16/2024 Scan [facility] INFO SRVCS Scanned, [facility] Lab (SCAN) 05/16/2024 Scan [facility] SRVCS Scanned, [facility] Lab (SCAN); Image (SCAN); CT (SCAN) 05/16/[address] [address] Starla Arshad, DO Advice 05/15/[address] [address] Starla Arshad, DO Question 05/14/[address] [phone] Starla Arshad, DO Medication Request 05/03/2024 9:40 AM SOFTWARE ENGINEER Office Visit [address] [phone] Starla Arshad, DO Spinal Stenosis (The patient presents for a 3 month follow up ) 05/03/[address] [address] Starla Arshad, DO Question 05/03/2024 Travel from Last 3 Months Immunizations Immunization Administration Dates Next Due COVID-19 Vaccine (Generic) [...] 1 57 Started: 08/19/1967 Smokeless Tobacco: Never Tobacco Cessation:Ready to Q uit: No; Counseling Given: Yes Comments:trying to quit. provider to certified addiction counselor Alcohol Use Standard Drinks/Week Comments Never [...] Sex Assigned at Female 05/03/2024 9:57 AM SOFTWARE ENGINEER Legal Sex Female 4:45 PM CDT Gender Identity Female 05/03/2024 9:57 AM SOFTWARE ENGINEER Sexual Orientation Not on file Last Filed Vital Signs Vital Sign Reading Time Taken Comments Blood Pressure 128/66 08/01/2024 8:17 AM CDT Pulse 85 08/01/2024 8:17 AM CDT Temperature 36.6 C (97.8 F) 08/01/2024 8:17 AM CDT Respiratory Rate 16 05/22/2024 8:59 PM SOFTWARE ENGINEER Oxygen Saturation 94% 08/01/2024 8:17 AM CDT Inhaled Oxygen Concentration - - Weight 66 kg (145 lb 9.6 oz) 08/01/2024 8:17 AM CDT Height 165.1 cm (5' 5 ) 08/01/2024 8:17 AM CDT Body Mass Index 24.23 08/01/2024 8:17 AM CDT Plan of Treatment Upcoming Encounters Date Type Department Care Team (Late st Contact Info) Description 08/31/2024 12:00 PM CDT Office Visit [facility] [phone] Abhi Aguilar MD 3 [facility] [address] [place] [phone] Health Maintenance Due Date Last Done Comments RSV Immunization or 60+ Years (1 - Risk 60-74 years 1-dose series) 2017 Mammogram Screening 09/09/2022 09/09/2020, ASCVD LDL 04/05/2024 04/05/2023, 12/18, 08/11/2021, Additional history exists COVID-19 Vaccine (6 - Pfizer risk 2023- season) 2024 01/18/2024, 01/27/2023, 01/27/2023, Additional history exists DTaP, Tdap and Td Vaccines (1 - Tdap) 10/30/2024 Postponed from 1976 (No Insurance Coverage) Annual Medicare Wellness Visit 10/31/2024 10/31/2023 Dexa Scan (General) 01/31/2025 Postpone d from 2022 (Patient Refused) Colorectal Cancer Screening Colonoscopy (10 Years) 09/10/2098 Postponed from 1957 (Patient Refused) Zoster Vaccines Completed 04/06/2021, 01/27/2021 Hepatitis C Completed 04/05/2023 Pneumococcal Vaccine: 50+ Years Completed 09/28/2023, 12/31/2022, 01/12/2020, Additional history exists PHQ-2 (Physician [place]) Completed 05/03/2024 Meningococcal B Vaccine Aged Out [...] remain independent in ADLs upon discharge from [facility] Daysi Nayak RN Procedures Procedure Name Priority Date/Time Associated Diagnosis Comments COLLECTION VENOUS BLOOD VENIPUNCTURE Routine 08/01/2024 8:34 AM CDT Essential hypertension Mixed hyperlipidemia PATHOLOGY GENERIC (SCAN ORDER) 06/28/2024 IMAGE GENERIC 06/28/2024 PROCEDURE GENERIC (SCAN ORDER) 06/28/2024 URINE BACTERIA CULTURE Routine 06/14/2024 10:27 AM SOFTWARE ENGINEER Dysuria URINALYSIS AUTO DIP Routine 06/14/2024 Dysuria OUTSIDE LAB (SCAN ORDER) 06/03/2024 OUTSIDE LAB (SCAN ORDER) 06/03/2024 OUTSIDE LAB (SCAN ORDER) 06/03/2024 ECG 12-LEAD Routine 05/22/2024 4:19 PM SOFTWARE ENGINEER TROPONIN, QUANT STAT 05/22/2024 4:08 PM SOFTWARE ENGINEER COMPREHENSIVE METABOLIC PANEL STAT 05/22/2024 4:08 PM SOFTWARE ENGINEER CBC W/DIFF AUTOMATED STAT 05/22/2024 4:08 PM SOFTWARE ENGINEER URINE BACTERIA CULTURE STAT 05/22/2024 3:19 PM SOFTWARE ENGINEER HC URINALYSIS AUTO W/O MICRO STAT 05/22/2024 3:19 PM SOFTWARE ENGINEER XR CHEST PORTABLE STAT 05/22/2024 3:[address] GENERIC 05/16/2024 CT GENERIC 05/16/2024 OUTSIDE LAB COVID-19 (SCAN ORDER) Routine 05/16/2024 OUTSIDE LAB (SCAN ORDER) 05/16/2024 OUTSIDE LAB (SCAN ORDER) 05/16/2024 OUTSIDE LAB (SCAN ORDER) 05/16/2024 OUTSIDE LAB (SCAN ORDER) 05/16/2024 OUTSIDE LAB (SCAN ORDER) 05/16/2024 OUTSIDE LAB (SCAN ORDER) 05/16/2024 OUTSIDE LAB (SCAN ORDER) 05/16/2024 IMAGE GENERIC 05/16/2024 IMAGE GENERIC 05/16/2024 MG/PCCL UDS W CONF Routine 05/03/2024 9: 46 AM SOFTWARE ENGINEER Encounter for long-term (current) use of medications LIPID PANEL Routine 04/05/2023 8:24 AM SOFTWARE ENGINEER Primary hypertension Screening for lipid disorders Screening for endocrine, metabolic and immunity disorder Annual physical exam HEPATITIS C ANTIBODY Routine 04/05/2023 8:24 AM SOFTWARE ENGINEER Primary hypertension Screening for lipid disorders Screening for endocrine, metabolic and immunity disorder Annual physical exam Need for hepatitis C screening test MG DIAG W WILMER BILAT DIGI Routine 09/09/2020 12:14 PM CDT Breast lump on left side at 10 o'clock position from Last 3 Months or Most Recently Relevant to Health Maintenance Results * PATHOLOGY GENERIC (SCAN ORDER) (06/28/2024) 06/28/2024 Result [employer]or [employer] [facility] Scanned SCANNING Final Resu lt * IMAGE GENERIC (06/28/2024) Only the most recent of3 resultswithin the time period is included. Anatomical Region Laterality Modality Other 06/28/2024 Result [employer] [facility] Scanned SCANNING Final Resu lt * PROCEDURE GENERIC (SCAN ORDER) (06/28/2024) 06/28/2024 Result [employer] [facility] Scanned SCANNING Final Resu lt * URINE BACTERIA CULTURE (06/14/2024 10:27 AM SOFTWARE ENGINEER) Only the most recent of2 resultswithin the time period is included. SPEC DESCRIPTION URINE CLEAN CATCH 06/14/2024 2:05 PM SOFTWARE ENGINEER [facility] SPECIAL REQUESTS NO SPECIAL REQUEST 06/14/2024 2:05 PM SOFTWARE ENGINEER [facility] CULTURE RESULT EQUAL OR >100,000 CFU/mL ESCHERICHIA COLI 06/16/2024 9:58 AM SOFTWARE ENGINEER [facility] URINE SPECIMEN OBTAINED BY CLEAN CATCH PROCEDURE / Unknown 06/14/2024 10:27 AM SOFTWARE ENGINEER 06/14/2024 5:11 PM SOFTWARE ENGINEER Narrative Organism Antibiotic Method Susceptibility Escherichia coli [...] MICROBIOLOGY - GENERAL O RDERABLES Final Result [facility] [address] [place] [address], [id number] * (ABNORMAL) URINALYSIS AUTO DIP (06/14/2024) COLOR (U) BROWN(A) YELLOW [facility] TRANSPARENCY TURBID(A) CLEAR [facility] GLUCOSE (U) NEGATIVE NEGATIVE MG/DL [facility] BILIRUBIN (U) 2+ (MODERATE)(A ) NEGATIVE [facility] KETONES MG/DL (U) 5 (TRACE)(A) NEGATIVE MG/DL [facility] SPECIFIC GRAVITY (U) 1.020 1.001 - 1.035 [facility] BLOOD (U) LARGE (Non Hemolyzed, Intact, About 250 rbc/uL)(A) NEGATIVE [facility] U PH 5.5 5.0 - 9.0 [facility] PROTEIN (U) 3+ (>=300)(A) NEGATIVE mg/dL [facility] UROBILINOGEN 4.0(A) 0.2 - 1.0 EU/dL = mg/dL [facility] NITRITES POSITIVE(A) NEGATIVE MG/DL [facility] LEUKOCYTES (U) 3+ (LARGE)(A) NEGATIVE [facility] URINE SPECIMEN OBTAINED BY CLEAN CATCH PROCEDURE / Unknown 06/14/2024 Starla Arshad DO URINE ORDERABLES Final R esult [facility] [address] [place] [address], [place] * OUTSIDE LAB (SCAN ORDER) (06/03/2024) Only the most recent of10 resultswithin the time period is included. 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: [id number] : 1955 Requested By: VIN VEGAS Order Number: [id number] Reading BAILEY Dowell Measurements Intervals Omega Rate: 70 P: 68 NE: 185 QRS: 69 QRSD: 94 T: 41 QT: 385 QTc: 416 Interpretive Statements SINUS RHYTHM NONSPECIFIC T-WAVE ABNORMALITY Compared to ECG 04/01/2023 11:55:20 T-wave abnormality now present WARE ENGINEER Procedure Note Chuy Dowell MD - 05/22/[address] Test Date: 2024-05-22 Pat Name: DANNY VARGAS Department: 41 Room: VAUGHN Gender: Female 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: [id number] : 1955 Requested By: VIN VEGAS Order Number: [id number] Reading MD: Chuy Dowell Measurements Intervals Omega Rate: 70 P: 68 NE: 185 QRS: 69 QRSD: 94 T: 41 QT: 385 QTc: 416 Interpretive Statements SINUS RHYTHM NONSPECIFIC T-WAVE ABNORMALITY Compared to ECG 04/01/2023 11:55:20 T-wave abnormality now present WARE ENGINEER Vin Vegas AIR BRAKE ADJUSTER ECG ORDERABLES Final Result [facility] * (ABNORMAL) COMPREHENSIVE METABOLIC PANEL (05/22/2024 4:08 PM SOFTWARE ENGINEER) GLUCOSE 102(H) 70 - 99 MG/DL 05/22/2024 5:11 PM SOFTWARE ENGINEER [facility] BUN 13 7 - 18 MG/DL 05/22/2024 5:11 PM SOFTWARE ENGINEER [facility] CREATININE S/P/B 0.61 0.55 - 1.02 MG/DL 05/22/2024 5:11 PM [facility] SODIUM S/P/B 137 136 - 145 MMOL/L 05/22/2024 5:11 PM [facility] POTASSIUM S/P/B 3.8 3.5 - 5.1 MMOL/L 05/22/2024 5:11 PM [facility] CHLORIDE S/P/B 106 97 - 115 MMOL/L 05/22/2024 5:11 PM [facility] CO2 30.6 21 - 32 MMOL/L 05/22/2024 5:11 PM [facility] CALCIUM S/P/B 9.4 8.5 - 10.1 MG/DL 05/22/2024 5:11 PM [facility] BILIRUBIN TOTAL S/P/B 0.4 0.2 - 1.2 MG/DL 05/22/2024 5:11 PM [facility] Comment: THIS ASSAY IS NOT RECOMMENDED FOR PATIENTS UNDERGOING TREATMENT WITH ELTROMBOPAG DUE TO THE POTENTIAL FOR FALSELY ELEVATED RESULTS. TOTAL PROTEIN S/P/B 7.7 6.4 - 8.2 G/DL 05/22/2024 5:11 PM [facility] ALBUMIN S/P/B 3.7 3.4 - 5.0 G/DL 05/22/2024 5:11 PM [facility] AST 14(L) 15 - 37 U/L 05/22/2024 5:11 PM [facility] ALT 17 14 - 55 U/L 05/22/2024 5:11 PM [facility] ALKALINE PHOSPHATASE S/P/B 65 50 - 136 U/L 05/22/2024 5:11 PM [facility] ANION GAP 0.4(L) 2 - 10 MMOL/L 05/22/2024 5:11 PM [facility] BUN CREATININE RATIO 21.2 6 - 26 05/22/2024 5:11 PM [facility] A/G RATIO 0.9(L) 1.0 - 2.0 RATIO 05/22/2024 5:11 PM [facility] GFR ESTIMATE >90 >90 ML/MIN/1.7 3 M2 05/22/2024 5:11 PM [facility] Comment: NOTE: eGFR is not calculated for patients <18 years of age or gender unknown. This is an estimated GFR calculation using the new CKD EPI creatinine equation without race and so does not require a correction factor for race. This estimated GFR should not be used for calculating drug doses. 05/22/2024 4:08 PM SOFTWARE ENGINEER Vin Vegas NP LABORATORY Final Result [facility] [address] [place] [address], * (ABNORMAL) CBC W/DIFF AUTOMATED (05/22/2024 4:08 PM SOFTWARE ENGINEER) WBC 7.30 4.5 - 11.0 x10'3/uL 05/22/2024 4:44 PM [facility] RBC 4.29 4.20 - 5.40 x10'6/uL 05/22/2024 4:44 PM [facility] HGB 13.8 12.0 - 16.0 G/DL 05/22/2024 4:44 PM [facility] HCT 39.3 38.0 - 48.0 % 05/22/2024 4:44 PM [facility] MCV 91.6 81.0 - 99.0 FL 05/22/2024 4:44 PM [facility] MCH 32.2(H) 27.0 - 31.0 PG 05/22/2024 4:44 PM [facility] MCHC 35.1 32.0 - 36.0 G/DL 05/22/2024 4:44 PM [facility] RDW 12.7 11.5 - 14.5 % 05/22/2024 4:44 PM [facility] PLT 284 130 - 400 x10'3/uL 05/22/2024 4:44 PM [facility] MPV 9.1(L) 9.3 - 12.2 FL 05/22/2024 4:44 PM [facility] DIFFERENTIAL TYPE AUTOMATED DIFFERENTIAL 05/22/2024 4:44 PM [facility] NEUTROPHILS % 44.9 % 05/22/2024 4:44 PM [facility] LYMPHOCYTES % 37.8 % 05/22/2024 4:44 PM [facility] MONOCYTES % 9.6 % 05/22/2024 4:44 PM [facility] EOSINOPHILS 6.3 % 05/22/2024 4:44 PM [facility] BASOPHILS 1.1 % 05/22/2024 4:44 PM [facility] IMMATURE GRANS % 0.3 % 05/22/19 4:44 PM [facility] ABS. NEUTROPHILS 3.28 1.80 - 7.70 x10'3/uL 05/22/2024 4:44 PM [facility] ABS. LYMPHOCYTES 2.76 1.00 - 4.80 x10'3/uL 05/22/2024 4:44 PM [facility] ABS. MONOCYTES 0.70 0.24 - 0.86 x10'3/uL 05/22/2024 4:44 PM SOFTWARE ENGINEER [facility] ABS. EOSINOPHILS 0.46(H) 0.04 - 0.36 x10'3/uL 05/22/2024 4:44 PM SOFTWARE ENGINEER [facility] ABS. BASOPHILS 0.08 0.01 - 0.08 x10'3/uL 05/22/2024 4:44 PM SOFTWARE ENGINEER [facility] ABS. IMMATURE GRANULOCYTES 0.02 0.00 - 0.49 x10'3/uL 05/22/2024 4:44 PM SOFTWARE ENGINEER [facility] 05/22/2024 4:08 PM SOFTWARE ENGINEER Vin [place] NP LABORATORY Final Result Performing Organization Address [facility]/ZIP Co de Phone Number [facility] [address] [place] [address], [place] [phone] * TROPONIN, QUANT (05/22/2024 4:08 PM SOFTWARE ENGINEER) Pathologist [facility] TROPONIN I HIGH SENSITIVITY <3 <54 ng/L 05/22/2024 5:11 PM SOFTWARE ENGINEER [facility] Comment: HIGH DOSES OF BIOTIN, TROPONIN-SPECIFIC AUTOANTIBODIES, AND ANTIBODY THERAPY CONTAINING HAMA MAY INTERFERE WITH THIS TEST RESULT. CORRELATION TO CLINICAL HISTORY AND PRESENTATION RECOMMENDED. 05/22/2024 4:08 PM SOFTWARE ENGINEER Vin Vegas NP LABORATORY Final Result Performing Organization Address [facility]/ZIP Co de Phone Number [facility] [address] [place] [address], [place] [phone] * (ABNORMAL) URINALYSIS (05/22/2024 3:19 PM SOFTWARE ENGINEER) Pathologist [facility] SPECIMEN TYPE URINE CLEAN CATCH 05/22/2024 3:22 PM SOFTWARE ENGINEER [facility] COLOR (U) LIGHT ORANGE 05/22/2024 3:33 PM [facility] TRANSPARENCY TURBID 05/22/2024 3:33 PM [facility] SPECIFIC GRAVITY (U) 1.013 1.001 - 1.030 05/22/2024 3:33 PM [facility] U PH 6.5 5.0 - 9.0 05/22/2024 3:33 PM [facility] LEUKOCYTES (U) 25(A) NEGATIVE 05/22/2024 3:33 PM [facility] NITRITES NEGATIVE NEGATIVE 05/22/2024 3:33 PM [facility] PROTEIN RANDOM (U) 20 <30 MG/DL 05/22/2024 3:33 PM [facility] GLUCOSE (U) NORMAL NORMAL MG/DL 05/22/2024 3:33 PM [facility] KETONES MG/DL (U) NEGATIVE NEGATIVE MG/DL 05/22/2024 3:33 PM [facility] UROBILINOGEN NORMAL NORMAL MG/DL 05/22/2024 3:33 PM [facility] BILIRUBIN (U) NEGATIVE NEGATIVE MG/DL 05/22/2024 3:33 PM [facility] BLOOD (U) 3+(A) NEGATIVE 05/22/2024 3:33 PM [facility] WBC/HPF 88(H) <6 /HPF 05/22/2024 3:33 PM [facility] RBC/HPF >100(H) <6 /HPF 05/22/2024 3:33 PM [facility] BUDDING YEAST RARE(A) NONE /HPF 05/22/2024 3:33 PM [facility] SQUAMOUS EPITHELIALS RARE /HPF 05/22/2024 3:33 PM SOFTWARE ENGINEER [facility] URINE SPECIMEN OBTAINED BY CLEAN CATCH PROCEDURE / Unknown 05/22/2024 3:19 PM SOFTWARE ENGINEER [place] [employer] URINE ORDERABLES Final Result [facility] [address] [place] [address], * XR CHEST PORTABLE (05/22/2024 3:02 PM SOFTWARE ENGINEER) Anatomical Region Laterality Modality Chest Radiographic Nuris ging 05/22/2024 3:04 PM SOFTWARE ENGINEER Impressions 05/22/2024 3:05 PM SOFTWARE ENGINEER Impression: Unremarkable one view chest; no radiographic evidence of acute/active cardiopulmonary disease Ordered By: VIN VEGAS Interpreted By: Lisa Edwards MD, 05/22/2024 3:04 PM Narrative 05/22/2024 3:05 PM SOFTWARE ENGINEER [address] [id number] Examination: Chest x-ray 1 view Exam date/time: [...] Procedure Note Lisa Edwards MD - 05/22/[address] [address] Examination: Chest x-ray 1 view Exam date/time: [...] Edwards MD, 05/22/2024 3:04 PM [place] AIR BRAKE ADJUSTER GENERAL IMAGING Final Result * OUTSIDE LAB COVID-19 (05/16/2024) Pathologist [facility] CORONAVIRUS SARS COV 2 PCR (RESP) NOT DETECTED NOT DETECTED [facility] ONBASE 05/16/2024 Result [employer] Scanned SCANNING Final Resu lt [facility] ONBASE * CT GENERIC (05/16/2024) Only the most recent of2 resultswithin the time period is included. Anatomical Region Laterality Modality Other 05/16/2024 Result [employer] Scanned SCANNING Final Resu lt * (ABNORMAL) MG/PCCL UDS W CONF (05/03/2024 9:46 AM SOFTWARE ENGINEER) Pathologist [facility] RESULT SUMMARY [facility] Comment: Prescribed Prescribed Not Prescribed Consistent Inconsistent Inconsistent Hydrocodone Marijuana Metabolite Xanax(TM) PRESCRIBED DRUG 1 (U) Xanax(TM) [facility] PRESCRIBED DRUG 2 (U) Hydrocodone [facility] FENTANYL SCREEN (U) NEGATIVE <0.5 ng/mL [facility] [place] MORPHINE (U) NEGATIVE <10 ng/mL [facility] [place] DESMETHYLTRAMADOL (U) NEGATIVE <100 ng/mL [facility] [place] TRAMADOL (U) NEGATIVE <100 ng/mL [facility] [place] TRAMADOL COMMENTS [facility] [place] Comment:See LDT Notes AMPHETAMINES PM NEGATIVE <500 ng/mL [facility] [place] BARBITURATES PM (U) NEGATIVE <300 ng/mL [facility] [place] BENZODIAZEPINES PM (U) POSITIVE(A) <100 ng/mL [facility] [place] ALPHAHYDROXYALPRAZOLAM PM (U) 518(H) <25 ng/mL [facility] [place] ALPHAHYDROXYALPRAZOLAM PM MEDMATCH (U) CONSISTENT [facility] [place] MIDAZOLAM PM (U) NEGATIVE <50 ng/mL [facility] [place] ALPHAHYDROXYTRIAZOLAM PM (U) NEGATIVE <50 ng/mL [facility] [place] AMINOCLONAZEPAM PM (U) INTERFERENCE( A) <25 ng/mL [facility] [place] Comment: See Note A See Note A OH ET FLURAZEPAM PM (U) NEGATIVE <50 ng/mL [facility] [place] LORAZEPAM PM (U) NEGATIVE <50 ng/mL [facility] [place] NORDIAZEPAM PM (U) NEGATIVE <50 ng/mL [facility] [place] OXAZEPAM PM (U) NEGATIVE <50 ng/mL [facility] [place] TEMAZEPAM PM NEGATIVE <50 ng/mL [facility] [place] BENZODIAZEPINES COMMENTS [facility] [place] Comment:See Benzodiazepines Notes, LDT Notes COCAINE METABOLITE PM (U) NEGATIVE <150 ng/mL [facility] [place] MARIJUANA METABOLITE PM (U) POSITIVE(A) <20 ng/mL [facility] [place] MARIJUANA METABOLITE PM CONF (U) 221(H) <5 ng/mL [facility] [place] MARIJUANA METAB PM MM CONF (U) INCONSISTENT( A) [facility] [place] MARIJUANA COMMENTS Q [facility] [place] Comment:See Marijuana Notes, LDT Notes METHADONE PM [...] [facility] WOOD AGUSTINA NOTE [facility] Comment: This drug testing is for medical [...] analytical performance characteristics have been determined by [facility]. It has not been cleared or approved by the FDA. This assay has been validated pursuant to the CLIA regulations and is used for clinical purposes. medMATCH(R) enables providers to identify if drug use is consistent or inconsistent with a corresponding prescribed medication(s) list. Healthcare Providers needing Interpretation assistance, please contact us at [phone] ( ) M-F, 8am to 10pm EST URINE SPECIMEN / Unknown 05/03/2024 9:46 AM SOFTWARE ENGINEER 05/04/2024 10:38 PM SOFTWARE ENGINEER Narrative Resulting Agency Comment Performing Organization Information: [facility] ID: [facility] Address: [address] [place] [address] Director: Shon Moe Site ID: [id number] Name: [facility] Address: [address] [place] [address] Director: Suman Paiz MD Starla Arshad DO URINE ORDERABLES Final R esult [facility] - [facility] [address] [place] [address], [facility] [place] [address] [place] [address] * (ABNORMAL) LIPID PANEL (04/05/2023 8:24 AM SOFTWARE ENGINEER) CHOLESTEROL 135 <200 MG/DL 04/05/2023 4:46 PM SOFTWARE ENGINEER [facility] TRIGLYCERIDES 127 <150 MG/DL 04/05/2023 4:46 PM SOFTWARE ENGINEER [facility] HDL 37(L) >40 MG/DL 04/05/2023 4:46 PM SOFTWARE ENGINEER [facility] LDL-C 73 <100 MG/DL 04/05/2023 4:46 PM SOFTWARE ENGINEER [facility] VLDL CALCULATION 25 5 - 28 MG/DL 04/05/2023 4:46 PM SOFTWARE [facility]INEER [facility] CHOL/HDL RATIO 3.6 0.0 - 4.0 04/05/2023 4:46 PM SOFTWARE ENGINEER [facility] LDL/HDL 2.0 0.41 - 2.13 04/05/2023 4:46 PM SOFTWARE ENGINEER [facility] NON HDL CHOLESTEROL 98 <140 MG/DL 04/05/2023 4:46 PM SOFTWARE ENGINEER [facility] 04/05/2023 8:24 AM SOFTWARE ENGINEER Starla Arshad LABORATORY Final Re sult Performing Organization Address [facility]/ZIP Co de Phone Number [facility] [address] [place] [address], [place] [phone] * HEPATITIS C ANTIBODY (04/05/2023 8:24 AM SOFTWARE ENGINEER) HEPATITIS C AB NON-REACTI VE NON-REACT RAUL 04/05/2023 6:53 PM SOFTWARE ENGINEER [facility] Comment: ANTIBODIES TO HCV NOT DETECTED. DOES NOT EXCLUDE THE POSSIBILITY OF EXPOSURE TO HCV. 04/05/2023 8:24 AM SOFTWARE ENGINEER Starla Arshad LABORATORY Final Re sult Performing Organization Address [facility] Co de Phone Number [facility] [address] [place] [address], [place] [phone] * MG DIAG W WILMER BILAT DIGI [...] Examination: Bilateral digital diagnostic mammogram with CAD. [id number] Clinical history: Left breast lump and tenderness. [...] demonstrate any discrete solid or cystic mass. [place] appearing tissue architecture is demonstrated. Physical exam surveillance is advised with any further evaluation at this point guided on that basis. From a mammographic standpoint, routine follow-up in one year would seem adequate. These findings were discussed with the patient. us Starla Arshad DO MAMMO Final Re sult from Last 3 Months or Most Recently Relevant to Health Maintenance Insurance [facility] MEDICAID Advance Directives * Full Code (Latest Code Status on File) Date Activated Date Inactivated Comments 09/22/2020 12:40 PM 09/23/2020 12:52 PM Care Teams Tip Out Worker Relationship Specialty Start Date End Date Starla Arshad DO [address] [place] [phone] PCP - General FAMILY PRACTICE 08/19/20
--- OUTSIDE RECORDS SUMMARY | 2024-08-01 10:36 | XMS_ITS | Encounter Summary ---
Author Organization [facility] Address [facility] [place] [address] Care Team Providers Care Thread Puller Name Role Phone Jimmy Doyle DO Primary Care Provider + Encounter Details Date Type Department Care Team (Late st Contact Info) Description 06/23/2022 Prep for Procedure [facility], [facility] [address] [place], [place] [phone] Flaquito Valera MD [facility]. [facility] [address] [place], [place] [id number] Social History Tobacco Use Types Packs/Day Years Used Date Smoking Tobacco: Every Day Cigarettes 1 55 Started: [birth year]/19[birth year]1969 Smokeless Tobacco: Never Comments:trying to quit. 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 No / Unsure 06/24/2022 12:41 PM RETAIL ATTENDANT documented as of this encounter Functional Status [...] PM CDT Meryl Carl RN Active * Over the past 2 weeks, how often have you been bothered by any of the following problems? Question Answer Date of Assessment Author Status Little interest or pleasure in doing things Not at all 06/24/2022 1:19 PM RETAIL ATTENDANT Adia Mckenna MA Active Feeling down, depressed, or hopeless Nearly every day 06/24/2022 1:19 PM RETAIL ATTENDANT Adia Mckenna MA Active Patient Health Questionnaire-2 Score 3 06/24/2022 1:19 PM RETAIL ATTENDANT Adia Mckenna MA Active documented as of this encounter Mental [...] Description 08/31/2024 12:00 PM CDT Office Visit [facility] [address] [phone] Abhi Aguilar MD [address] [facility] [address] [place] [phone] documented as of this encounter Goals Goal [...] Total Score: 8 05/13/19 22 10:36 AM RETAIL ATTENDANT documented as of this encounter Care Teams Thread Puller Relationship Specialty Start Date End Date Jimmy Doyle DO [address] [place] [id number] PCP - General FAMILY PRACTICE 08/19/20 documented as of this encounter
--- OUTSIDE RECORDS SUMMARY | 2024-08-01 10:36 | XMS_ITS | Encounter Summary ---
Author Organization [facility] Address [facility] [place] [address] Care Team Providers Care Drill Presser Name Role Phone New Referring, Provider Primary Care Provider Un available Jimmy Doyle DO Primary Care Provider + Encounter Details Date Type Department Care Team (Latest Contact Info) Description 12/12/2017 Abstract [facility] Farhana Marina MD Social History Tobacco Use Types Packs/Day Years Used Date Smoking Tobacco: Never Assessed Comments Unknown Sex and Gender Information Value Date Recorded Sex Assigned at Female 05/03/2024 9:57 AM ENVIRONMENTAL SOLUTIONS ENGINEER Legal Sex Female 4:45 PM CDT Gender Identity Female 05/03/2024 9:57 AM ENVIRONMENTAL SOLUTIONS ENGINEER Sexual Orientation Not on file documented as of this encounter Plan of Treatment Upcoming Encounters Date Type Department Care Team (Late st Contact Info) Description 08/31/2024 12:00 PM CDT Office Visit [facility] [phone] Abhi Aguilar MD 3 [facility] [address] [place] [phone] documented as of this encounter Visit Diagnoses Not on filedocumented in this encounter Additional Health Concerns Infection Onset Date Last Indicated Resolved Time COVID-19 Rule Out 01/13/2022 01/13/2022 01/13/2022 9:32 AM CDT COVID-19 Rule Out 01/13/2022 01/13/2022 01/13/2022 9:59 AM CDT COVID-19 Rule Out 01/27/2023 01/27/2023 01/27/2023 11:28 AM CDT documented as of this encounter Care Teams Drill Presser Relationship Specialty Start Date End Date New Referring, Provider PCP - General UNKNOWN PHYSICIAN SPECIALTY 01/25/18 08/18/20 Jimmy Doyle DO [address] [place] [phone] PCP - General FAMILY PRACTICE 08/19/20 documented as of this encounter
--- OUTSIDE RECORDS SUMMARY | 2024-08-01 10:36 | XMS_ITS | Encounter Summary ---
Author Organization [facility] Address [facility] [place] [address] Care Team Providers Care Ceramist Name Role Phone Jimmy Doyle DO Primary Care Provider + Reason for Referral * Imaging (Emergency) - Authorized Specialty Diagnoses / Procedures Referred By Contac t Referred To Contact RADIOLOGY Diagnoses Jaw swelling Procedures CT SOFT TISSUE NECK W CON Jimmy Doyle DO [address] [place] [address] Phone: tel: fax: [address] [address] Phone: tel: fax: Referral ID Status Reason Start Date Expiration Date V isits Requested Visits Authorized [id number] Authorized 08/01/2024 08/02/2025 1 1 Reason for Visit * Reason Comments Bipolar Disorder Spinal Stenosis Emphysema Coronary Artery Disease Hypertension Encounter Details Date Type Department Care Team (Late st Contact Info) Description 08/01/2024 8:20 AM CDT Office Visit [facility] [address] [place] [address] Jimmy Doyle DO [address] [place] [address] Bipolar Disorder; Spinal Stenosis ; Emphysema; Coronary Artery Disease; Hypertension Social History Tobacco Use Types Packs/Day Years Used Date Smoking Tobacco: Every Day Cigarettes 1 55 Started: 08/19/1969 Smokeless Tobacco: Never Tobacco Cessation:Ready to Q uit: No; Counseling Given: Yes Comments:trying to quit. provider to senior counsel commercial Alcohol Use Standard Drinks/Week Comments Never 0 [...] Sex Assigned at Female 05/03/2024 9:57 AM NUMERICAL CONTROL TOOL PROGRAMMER Legal Sex Female 4:45 PM CDT Gender Identity Female 05/03/2024 9:57 AM NUMERICAL CONTROL TOOL PROGRAMMER Sexual Orientation Not on file documented as of this encounter Last Filed Vital Signs Vital Sign Reading Time Taken Comments Blood Pressure 128/66 08/01/2024 8:17 AM CDT Pulse 85 08/01/2024 8:17 AM CDT Temperature 36.6 C (97.8 F) 08/01/2024 8:17 AM CDT Respiratory Rate - - Oxygen Saturation 94% 08/01/2024 8:17 AM CDT Inhaled Oxygen Concentration - - Weight 66 kg (145 lb 9.6 oz) 08/01/2024 8:17 AM CDT Height 165.1 cm (5' 5 ) 08/01/2024 8:17 AM CDT Body Mass Index 24.23 08/01/2024 8:17 AM CDT documented in this encounter Functional Status * RETIRED Are [...] Assessment Author Status No 09/21/2020 1:00 PM Meryl Boggs RN Active * Do you have difficulty dressing or bathing? Answer Date of Assessment Author Status No 09/21/2020 1:00 PM Meryl Boggs RN Active * Because of a physical, mental, or emotional condition, do you have difficulty doing errands alone such as visiting a doctor's office or shopping? Answer Date of Assessment Author Status No 09/21/2020 1:00 PM Meryl Boggs RN Active documented as of this encounter Mental Status * Because of a physical, mental, or emotional condition, do you have serious difficulty concentrating, remembering, or making decisions? Answer Entry Date Author Status No 09/21/2020 1:00 PM Meryl Boggs RN Active documented in this encounter Progress Notes * Jimmy Doyle, - 08/01/2024 8:20 AM CDT Images from the original note were not included. 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 Pt states she has a new ureteral stent from her description; full details are not available at this time. She will have a repeat evaluation with urology for this to see if they were successful in their treatment. Pt has a notable swelling in her left jaw. It started about 5 days ago. It is painful, especially with palpation. Pt is unsure if there is drainage or not. No other new symptoms. Patient presents for follow-up on essential hypertension. Patient has had hypertension for multipleyears. Current medications include HCTZ, Carvedilol, and isosorbide mononitrate ER. Patient's bloodpressure is well controlled at this time. No side effects noted from medications. Concurrent conditions include Hyperlipidemia. Patient presents for follow-up on HLD. Patient has had HLD for multiple years. Current medications include atorvastatin and Vascepa. Current side effects include none. Patient does need labs drawn. Review of Systems Constitutional: Negative for fever. HENT: See HPI Respiratory: Negative for cough. Cardiovascular: Negative for chest pain. Gastrointestinal: Negative for abdominal pain. Patient Active Problem List Diagnosis Anxiety Body mass index (BMI) of 28.0 to 28.9 in adult Bulging lumbar disc Lumbar foraminal stenosis Chronic left hip pain Contact with and (suspected) exposure to other intestinal infectious diseases Hypertension Exposure to HIV virus GERD (gastroesophageal reflux disease) History of cholecystectomy History of pancreatitis Hypokalemia Incomplete emptying of bladder Low back pain Lumbar stenosis Muscle spasm Nausea Nicotine dependence On senior living drug therapy Osteoarthrosis Polyarthritis Postmenopausal status Primary osteoarthritis of left knee Triggering of digit Vitamin D deficiency Depressive disorder Chronic obstructive pulmonary disease ([facility]) Hyperlipidemia Cerebrovascular accident ([facility]) Prediabetes Degenerative tear of acetabular labrum of left hip History of noncompliance with medical treatment Coronary artery disease of [place] artery of [place] heart with stable angina pectoris Radiculopathy, lumbar region Other intervertebral disc degeneration, lumbar region Spondylolisthesis of lumbar region Allergies Right lower quadrant abdominal pain Tobacco abuse PAD (peripheral artery disease) Right iliac artery stenosis Sedative, hypnotic or anxiolytic dependence, uncomplicated ([facility]) Bipolar affective disorder, currently depressed, mild ([facility]) Ureteral cancer, right ([facility]) Past Medical History[1] Past Surgical History[2] Family History[3] Social History[4] Immunization History Administered Date(s) Administered COVID-19 Vaccine (Generic) 01/27/2023 Fluzone 6 Months+ Quad (0.5 mL Prefilled Syringe) 01/21/2022 Fluzone High Dose (IIV, trivalent, 0.5mL) 01/18/2024 Fluzone High Dose - >Age 65 (Prefilled Syringe) 01/27/2023 Influenza (Generic) 05/14/2009, 01/15/2013, 01/16/2014, 02/15/2014, 02/09/2015, 02/10/2015, 01/24/2016, 01/27/2017, 12/25/2020 Influenza Adult (Generic) 01/12/2018, 01/25/2019, 01/07/2020 PFIZER COVID-19 (12+) MRNA, LNP-S, PF, RINA-SUCROSE, 30 MCG/0.3 ML (COMIRNATY) 01/27/2023, 01/18/2024 PFIZER COVID-19 (ORIGINAL FORMULATION, PURPLE CAP) mRNA, LNP-S, PF, 30 MCG/0.3 ML DOSE 06/30/2020, 07/21/2020, 01/30/2021 Pneumococcal (Pneumovax 23) 05/14/2007 Pneumococcal (Prevnar 13) 01/12/2020 Pneumococcal (Prevnar 20) 12/31/2022, 09/28/2023 Shingrix 01/27/2021, 04/06/2021 Current Outpatient Medications Medication Sig Dispense Refill ALPRAZolam (XANAX) 0.5 MG tablet Take 1 tablet (0.5 mg total) by mouth 3 (three) times daily as needed for Anxiety. 90 tablet 0 aspirin EC (ASPIRIN EC) 81 MG tablet Take 1 tablet (81 mg total) by mouth daily. atorvastatin (LIPITOR) 40 MG tablet TAKE 1 TABLET(40 MG) BY MOUTH EVERY NIGHT AT BEDTIME 90 tablet 2 carvedilol (COREG) 12.5 MG tablet TAKE 1 TABLET BY MOUTH TWICE DAILY, EVERY 12 HOURS, WITH MEALS ORFOOD 180 tablet 1 dextromethorphan-guaiFENesin ER (MUCINEX DM) 30-600 MG TABLET SR 12 HR 12 hr tablet Take 1 tablet by mouth every 12 (twelve) hours as needed. fluticasone propionate (FLONASE) 50 MCG/ACT nasal spray 2 sprays by Each Nostril route daily. 9.9 mL 0 hydroCHLOROthiazide (HYDRODIURIL) 25 MG tablet Take 1 tablet (25 mg total) by mouth daily. 90 tablet 3 HYDROcodone-acetaminophen (NORCO) 10-325 MG tablet Take 1 tablet by mouth every 8 (eight) hours as needed for Pain. Indications: Chronic Pain 90 tablet 0 hydrocortisone 2.5 % cream Apply topically 2 (two) times daily. 28 g 0 isosorbide mononitrate ER (IMDUR) 30 MG 24 hr tablet TAKE 3 TABLETS(90 MG) BY MOUTH DAILY 270 tablet 1 nitroglycerin (NITROSTAT) 0.[address] 1 tablet (0.4 mg total) under the tongue every 5 (five) minutes as needed for Chest Pain. Maximum of 3 doses.THEN CALL 911 25 tablet 2 ondansetron (ZOFRAN-ODT) 4 MG disintegrating tablet Take 1 tablet (4 mg total) by mouth every 8 (eight) hours as needed for Nausea. 20 tablet 0 oxybutynin XL (DITROPAN-XL) 10 MG 24 hr tablet TAKE 1 TABLET(10 MG) BY MOUTH EVERY NIGHT AT YSUSTSI10 tablet 0 potassium chloride CR (KLOR-CON M) 10 MEQ tablet TAKE 1 TABLET(10 MEQ) BY MOUTH DAILY 90 tablet 0 QUEtiapine (SEROQUEL) 300 MG tablet TAKE 1 TABLET(300 MG) BY MOUTH EVERY NIGHT AT BEDTIME 90 tablet1 ranolazine ER (RANEXA) 500 MG 12 hr tablet TAKE 1 TABLET(500 MG) BY MOUTH TWICE DAILY 180 tablet 1 valACYclovir (VALTREX) 1 g tablet Take 1 tablet (1,000 mg total) by mouth every 8 (eight) hours. 21tablet 0 VASCEPA 1 g capsule TAKE 2 CAPSULES BY MOUTH TWICE DAILY WITH MEALS 360 capsule 2 venlafaxine XR (EFFEXOR-XR) 150 MG 24 hr capsule TAKE 1 CAPSULE(150 MG) BY MOUTH DAILY 90 capsule 0 vitamin D3 (CHOLECALCIFEROL) 25 mcg tablet Take 1 tablet (25 mcg total) by mouth daily. No current facility-administered medications for this visit. Review of patient's allergies indicates: Allergen Reactions Amitriptyline Unknown Psychiatric changes Ciprofloxacin Shakiness Bromsulphalein Unknown Codeine Nausea and Vomiting and Unknown Latuda [Lurasidone Hcl] Unknown Oxybutynin Unknown Sulfa Antibiotics Hives and Unknown Tetracycline Nausea Only Penicillins Rash and Unknown Objective: Filed Vitals: 08/01/24 0817 BP: 128/66 Pulse: 85 Temp: 97.8 ??F (36.6 ??C) TempSrc: Temporal SpO2: 94% Weight: 66 kg (145 lb 9.6 oz) Height: 1.651 m (5' 5 ) Physical Exam Vitals and nursing note reviewed. HENT: Head: Normocephalic and atraumatic. Right Ear: External ear normal. Left Ear: External ear normal. Mouth/Throat: Mouth: Mucous membranes are moist. Pharynx: No oropharyngeal exudate or posterior oropharyngeal erythema. Eyes: General: No scleral icterus. Conjunctiva/sclera: Conjunctivae normal. Neck: Comments: Notably hard and tender swelling inferior to mandible near preauricular region, extendinginto the preauricular region. See attached picture. Cardiovascular: Rate and Rhythm: Normal rate and regular rhythm. Heart sounds: Normal heart sounds. No murmur heard. No friction rub. No gallop. Pulmonary: Effort: Pulmonary effort is normal. No respiratory distress. Breath sounds: Normal breath sounds. No wheezing or rales. Abdominal: Palpations: Abdomen is soft. Tenderness: There is no abdominal tenderness. Skin: General: Skin is warm and dry. Findings: No rash. Neurological: Mental Status: She is alert and oriented to person, place, and time. Psychiatric: Mood and Affect: Mood and affect normal. Assessment & Plan: Jeniffer Alexander was seen today for bipolar disorder, spinal stenosis , emphysema, coronary arterydisease and hypertension. Diagnoses and all orders for this visit: Jaw swelling - CT SOFT TISSUE NECK W CON; Future Ureteral cancer, right ([facility]) Essential hypertension - COLLECTION VENOUS BLOOD VENIPUNCTURE - CBC W/DIFF AUTOMATED; Future - COMPREHENSIVE METABOLIC PANEL; Future - TSH W/REFLEX; Future - LIPID PANEL; Future - VITAMIN D, 25 OH; Future Mixed hyperlipidemia - COLLECTION VENOUS BLOOD VENIPUNCTURE - CBC W/DIFF AUTOMATED; Future - COMPREHENSIVE METABOLIC PANEL; Future - TSH W/REFLEX; Future - LIPID PANEL; Future - VITAMIN D, 25 OH; Future Vitamin D deficiency - VITAMIN D, 25 OH; Future BMI 24.0-24.9, adult Discussion/Summary: For jaw swelling, concerning for acute infectious etiology versus other etiology. Given acuity and size, need imaging done today with stat CT of neck. Will continue current meds for HTN and HLD; stable today. Will obtain labs as per above today. Continue follow-up with urology for new onset cancer.Will have pt f/u in 3 months at a minimum and will contact later today with results. Pt v/u. Jimmy Doyle DO [1] Past Medical History: Diagnosis Date Anxiety Bipolar affective disorder ([facility]) COPD (chronic obstructive pulmonary disease) ([facility]) Emphysema lung ([facility]) Hyperlipidemia Hypertension Infiltrate of lung present on chest x-ray 08/18/2020 Kidney stone [2] Past Surgical History: Procedure Laterality Date CHOLECYSTECTOMY CYSTOSCOPY 06/2024 HC TRIGGER FINGER RELEASE HYSTERECTOMY Partial hysterectomy, followed by total TONSILLECTOMY AND ADENOIDECTOMY [3] Family History Problem Relation Name Age of Onset Heart Disease Mother Stroke Father Dementia Sister Tuberculosis Maternal Grandmother [4] Social History Tobacco Use Smoking status: Every Day Current packs/day: 1.00 Average packs/day: 1 pack/day for 55.0 years (55.0 ttl pk-yrs) Types: Cigarettes Start date: 08/19/1969 Smokeless tobacco: Never Tobacco comments: trying to quit. provider to senior counsel commercial Vaping Use Vaping status: Never Used Substance Use Topics Alcohol use: Never Drug use: Yes Frequency: 14.0 times per week Types: Marijuana Comment: Smokes marijuana 2-3 times daily, 7 days/week. Former meth user from 1994 to 1997 documented in this encounter Plan of Treatment Upcoming Encounters Date Type Department Care Team (Late st Contact Info) Description 08/31/2024 12:00 PM CDT Office Visit [facility] [phone] Abhi Aguilar MD [address] [place] [phone] Scheduled Orders Name Type Priority Associated Diagnoses Orde r Schedule CT SOFT TISSUE NECK W CON CT STAT Jaw swelling Expected: 08/01/2024, Expires: 08/01/2025 CBC W/DIFF AUTOMATED Lab Routine Essential hypertension Mixed hyperlipidemia Expected: 08/01/2024, Expires: 08/01/2025 COMPREHENSIVE METABOLIC PANEL Lab Routine Essential hypertension Mixed hyperlipidemia Expected: 08/01/2024, Expires: 08/01/2025 TSH W/REFLEX Lab Routine Essential hypertension Mixed hyperlipidemia Expected: 08/01/2024, Expires: 08/01/2025 LIPID PANEL Lab Routine Essential hypertension Mixed hyperlipidemia Expected: 08/01/2024, Expires: 08/01/2025 VITAMIN D, 25 OH Lab Routine Essential hypertension Mixed hyperlipidemia Vitamin D deficiency Expected: 08/01/2024, Expires: 08/01/2025 documented as of this encounter Goals Goal Patient Goal Type Associated Problems Recent Progress Patient-Stated? Author Patient will return to prior living situation and remain independent in ADLs upon discharge from hospital 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 RN documented as of this encounter Procedures Procedure Name Priority Date/Time Associated Diagnosis Comments COLLECTION VENOUS BLOOD VENIPUNCTURE Routine 08/01/2024 8:34 AM CDT Essential hypertension Mixed hyperlipidemia documented in this encounter Visit Diagnoses Diagnosis Jaw swelling- Primary Temporomandibular joint disorders, unspecified Ureteral cancer, right ([facility]) Essential hypertension Unspecified essential hypertension Mixed hyperlipidemia Vitamin D deficiency Unspecified vitamin D deficiency BMI 24.0-24.9, adult documented in this encounter Additional Health Concerns Assessment Noted Time PHQ-9 Depression Total Score: 10 025 9:55 AM NUMERICAL CONTROL TOOL PROGRAMMER documented as of this encounter Care Teams Ceramist Relationship Specialty Start Date End Date Jimmy Doyle DO [address] [place] [id number] PCP - General FAMILY PRACTICE 08/19/20 documented as of this encounter
--- OUTSIDE RECORDS SUMMARY | 2024-08-01 10:36 | XMS_ITS | Clinical Summary ---
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 Advance Directives For more information, please contact: [phone] * Full Code (Latest Code Status on File) Date Activated Date Inactivated Comments 02/09/2022 9:51 PM 02/12/2022 5:52 PM Care Teams Stripping Shovel Oiler Relationship Specialty Start Date End Date Jimmy Doyle DO [address] [place] [id number] PCP - General Family Medicine 02/12/22 Derrell Varma MD [facility] [address] [address] Surgeon Surgery 02/12/22
--- OUTSIDE RECORDS SUMMARY | 2024-08-01 10:36 | XMS_ITS | Encounter Summary ---
Author Organization [facility] Address [facility] [place] [address] Care Team Providers Care Dissolver Operator Name Role Phone Jimmy Doyle Primary Care Provider + Encounter Details Date Type Department Care Team (Late st Contact Info) Description 01/11/2022 Abstract [facility] [address] Doni Moore MA Social History Tobacco Use Types Packs/Day Years Used Date Smoking Tobacco: Every Day Cigarettes 1 55 Started: 08/19/1969 Smokeless Tobacco: Never Comments:trying to quit. 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 Author Patient will return to prior living situation and remain independent in ADLs upon discharge from [facility] General Daysi Nayak RN documented as [...] Total Score: 8 05/13/19 22 10:36 AM TALENT ACQUISITION ASSISTANT documented as of this encounter Care Teams Dissolver Operator Relationship Specialty Start Date End Date Jimmy Doyle DO [address] [place] [id number] PCP - General FAMILY PRACTICE 5/4/21 documented as of this encounter
--- OUTSIDE RECORDS SUMMARY | 2024-08-01 10:36 | XMS_ITS | Data Portability ---
Author Organization [facility] OFFICE Address [address] [place] [address] Care Team Providers Care Ice Skating Coach Name Role Phone JESUS MACEDO Primary Care Provider JESUS MACEDO Referring Provider [phone] Assessment No assessment recorded. Plan of Treatment [...] By Organization Details Last Modified Time 04/30/2020 [id number] Exercise advised Low cholesterol diet advised Low sodium diet advised [email or web address] Not available 04/30/2020 16:38:42 Scribed by Kamila Michele [facility] [email or web address] Not available 04/30/2020 16:38:44 Reason [...] bibasiller atelectasis or infection,clinical correlation. Efra [facility] 05/03/2020 10:01:32 D-dimer Feu, Qn, Ia, Blood : D-dimer 04/01/20:0.37 Efra [facility] 05/03/2020 09:54:26 Cbc W/ Diff : 04/01/20:WBC 7.6,RBC 4.68,HGB 14.8,HCT 41.8,PLT 251. Efra [facility] 05/03/2020 09:50:44 Cmp, Serum Or Plasma : 04/02/20:Na 139,K 3.4,Cl 102,CO2 32,GLU 99,BUN 11,Cr 0.6,Mg 2.1 [facility] 05/03/2020 09:54:26 Lipid Panel, Blood : 04/02/20: TC 167,TG 220,LDL 107,HDL 30. Efra [facility] 05/03/2020 09:54:26 Problems Name Problem SNOMED Code Status Onset Date Resolution Date Notes Provider Name and Address Organization Details Recorded Time Essential hypertension 96684601 Active 2020 [facility] 15:22:30 Cerebrovascula r accident 813603761 Active 2020 [facility] 15:22:39 Hypercholester olemia 21683207 Active 2020 [facility] 15:22:56 Depressive disorder 33096409 Active 2020 [facility] 15:23:04 Problem Notes None recorded. Procedures Surgical History Date Name Laterality Status Provider Name and Address Organization Details Recorded Time Hysterectomy completed [facility] 04/30/2020 15:24:35 Cholecystectomy completed [facility] 04/30/2020 15:24:43 Imaging Results Imaging Date Name [...] Name and Address Organization Details Recorded Time 56368 sulfobrom ophthalei n sodium medicatio n Not available Not available Not available 04/30/202015919 0 RxNorm Renae [facility], [place] - [facility] 15:21:51 81134 tetracycl ine medicatio n Not available Not available Not available 04/30/2020 70357 RxNorm Renae [facility], [place] - [facility] 15:22:03 Medications Name [...] Available Not Available Not Available Fluzone Quad 3038-9408 (PF) 60 mcg (15 mcg x 4)/0.5 [...] Last Updated DateTime 165.1 cm 28.3 kg/m2 14252.7 g 84 /min 18 /min 94 % 94 % 97.2 [degF] 170 mm[Hg] 100 mm[Hg] Renae P[facility] 15:31:15 Social History Question Answer Notes LastModified by Organizat ion Details LastModified Time Tobacco Smoking Status Current Every Day Smoker Renae wright [facility] 04/30/2020 15:23:42 Do You Have An Advance Directive? No [facility] Information not available 04/30/2020 What Is Your Level Of Alcohol Consumption? Occasional [facility] Information not available 04/30/2020 What Is Your Level Of Caffeine Consumption? None [facility] Information not available 04/30/2020 How Much Tobacco Do You Chew? None [facility] Information not available 04/30/2020 What Type Of [...] Father No current problems or disability Stroke [facility] Not available 04/18 15:23:31 Mother [...] SNOMED-CT Code Diagnosis ICD10 Code Diagnosis Note 67171 MD Izzy Naqvi Office [address] [place] [place] [address] 04/30/2020 14:29:44 04/30/2020 15:51:37 Atypical chest pain 003436667 R07.89 Treadmill Myoview Stress test, has high Sanderson Risk score. Has Known CAD, or CAD risk equivalent . To look for any ischemia. 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 Cessation highly advised Essential hypertension 72799807 I10 Hyperlipidemia 67367832 E78.5 Needs to keep LDL less than 100, and HDL more than 40.Current ly not on statin therapyWil l get fasting lipids for follow-up Peripheral vascular disease 542192978 I73.9 Will get arterial doppler, to evaluate severity of peripheral vascular disease Health Concerns Section Related Observation LastModified by Organization Detai ls LastModified Time None Recorded Concern Status LastModified by Organization Details LastModified Time None Recorded Advance Directives Directive N: Payers Encounter Date Sequence Insurance Name Policy Number Policy Brown Covered Member ID Brown Member ID Guarantor Name 04/30/2020 2 [place] [facility] Jeniffer Weller [id number] Jeniffer Weller 04/30/2020 1 [place] Jeniffer Weller [id number] Jeniffer Weller Notes Date Note Type Note Provider Name and Address Organization Details Recorded Time 04/30/2020 text/html 04/30/2020 CC: chest pain Patient is a 64-year-old female with a past medical history of HLD, HTN, COPD, and CKD who is seen in cardiac consultation with a chief complaint of chest pain and hospital follow-up. She was admitted to [facility] on 04/01/2020 with chest pain. Her cardiac [...] mairjuana occasionally. She denies ETOH abuse. Merrick Lni MD [address], [place], [address], [place] [facility] 04/30/2020 16:39:25 OBGyn Episode No OBEpisode recorded.
--- OUTSIDE RECORDS SUMMARY | 2024-08-01 10:36 | XMS_ITS | Referral Summary ---
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 Gender Identity Not on file Sexual Orientation [...] of Treatment Not on file Insurance IDPA [facility] MEDICARE ADVANTAGE [place]PA [facility] MEDICARE ADVANTAGE [facility] MEDICARE AD[facility]ANT[facility] MEDIC[facility] Address: [address] [address] [place] [address] IDPA Advance Directives For more information, please contact: [phone] * Full Code (Latest Code Status on File) Date Activated Date Inactivated Comments 02/09/2022 9:51 PM 02/12/2022 5:52 PM Care Teams Caddy Packer Relationship Specialty Start Date End Date Jimmy Doyle DO [address] [place] [address] PCP - General Family Medicine 02/12/22 Derrell Varma MD [address] [facility] [address] [address] Surgeon Surgery 02/12/22
--- OUTSIDE RECORDS SUMMARY | 2024-08-01 10:36 | XMS_ITS | Clinical Summary ---
Author Organization [facility] Address [address] [place] [address] Care Team Providers Care Physician Primary Care Sports Medicine Name Role Phone Unavailable Primary Care Provider Unavailabl e Source Comments [facility],non-owned Affiliates and Associated Physician Practices is amultiple site organization consisting of ambulatory clinics and hospital sitesin [place], [place], [place] and [place]. This disclosure is being madepursuant to the Care Everywhere program and may not contain all information available regarding this patient. 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 Gender Identity Not on file Sexual Orientation [...] VACCINE ( - 2023-2 5 season) 2023 DEPRESSION SCREENING 04/18/2024 INFLUENZA VACCINE (Season Ended) 2024 Respiratory Syncytial Virus (RSV) Vaccine Pt: [...] on patient's age to complete this topic Insurance [facility] MANAGED MEDICARE ADV MEDICAID - [place] SELF PAY NO INSURANCE Member Subscriber Plan / Payer (Ef fective for All Dates) Name:Jeniffer Vargas Member ID:Not on file Relation to Subscriber:Not on file Name:JENIFFER VARGAS Subscriber ID:Not on file (Home) Address: [address] [place] [id number] Payer ID:Not on file Group ID:Not on file Type:Self Pay Address: [place], [place] [facility] MANAGED MEDICARE ADV
--- OUTSIDE RECORDS SUMMARY | 2024-08-01 10:36 | XMS_ITS | Encounter Summary ---
Author Organization [facility] Address [address] [place] [address] Care Team Providers Care Educational Psychology Professor Name Role Phone Jimmy Doyle DO Primary Care Provider + Encounter Details Date Type Department Care Team (Late st Contact Info) Description 08/01/2024 Telephone [facility] Family & Internal Medicine [facility] [address] [place] [address] Jimmy Doyle DO [address] [place], [place] [id number] Social History Tobacco Use Types Packs/Day Years Used Date Smoking Tobacco: Every Day Cigarettes 1 55 Started: [birth year]/19/1967 Smokeless Tobacco: Never Comments:trying to quit. 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 Alcohol Use Standard Drinks/Week Comments Never [...] Sex Assigned at Female 05/03/2024 9:57 AM FOOD QUALITY TESTER Legal Sex Female 4:45 PM CDT Gender Identity Female 05/03/2024 9:57 AM FOOD QUALITY TESTER Sexual Orientation Not on file documented as [...] Description 08/31/2024 12:00 PM CDT Office Visit [facility] [address] Abhi Aguilar MD [address] [place] [address] [place] [address] documented as of this encounter Goals [...] Depression Total Score: 10 025 9:55 AM FOOD QUALITY TESTER documented as of this encounter Care Teams Educational Psychology Professor Relationship Specialty Start Date End Date Jimmy Doyle DO [address] [place] [address] PCP - General FAMILY PRACTICE 08/19/20 documented as of this encounter
--- OUTSIDE RECORDS SUMMARY | 2024-08-01 10:36 | XMS_ITS | Encounter Summary ---
Author Organization [facility] Address [facility] [place] [address] Care Team Providers Care Human Geography Faculty Member Name Role Phone Jimmy Doyle Primary Care Provider + Encounter Details Date Type Department Care Team (Latest Contact Info) Description 08/01/2024 Travel Social History Tobacco Use Types Packs/Day Years Used Date Smoking Tobacco: Every Day Cigarettes 1 55 Started: [birth year]/19/1967 Smokeless Tobacco: Never Comments:trying to quit. 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 Author Patient will return to prior living situation and remain independent in ADLs upon discharge from hospital General Dyasi Nayak RN documented as of this encounter Visit Diagnoses Not on filedocumented in this encounter Additional Health Concerns Assessment Noted Time PHQ-9 Depression Total Score: 10 025 9:55 AM BUILDING ADMIN documented as of this encounter Care Teams Human Geography Faculty Member Relationship Specialty Start Date End Date Jimmy Doyle DO [address] [place] [address] PCP - General FAMILY PRACTICE 08/19/20 documented as of this encounter
--- OUTSIDE RECORDS SUMMARY | 2024-08-01 10:36 | XMS_ITS | Encounter Summary ---
Author Organization [facility] Address [address] [place] [address] Care Team Providers Care Hide Tanner Name Role Phone Unavailable Primary Care Provider Unavailabl e Encounter Details Date Type Department Care Team (Late st Contact Info) Description 01/28/2022 Lab Requisition [facility] [address] [place] [address] Kathy Mason MD [address] [place], [place] [phone] Illness, unspecified Social History Tobacco Use Types Packs/Day Years Used Date Smoking Tobacco: Never Assessed Comments Unknown Sex and Gender Information Value Date Recorded Sex Assigned at Not on file Legal Sex Female 6:27 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 01/28/2022 12:22 PM CDT [facility] Clinical History HEMATURIA 01/28/2022 12:22 PM CDT [facility] Materials Received One thin prep slide received from [facility] [id number]. All material will be returned. 01/28/2022 12:22 PM CDT [facility] Disclaimer The performance characteristics of all immunohistochemical and indirect immunofluorescence stains (if any) cited in this report were determined by the Histopathology [facility] of [facility]. Some of these tests were developed by [...] attending (teaching) pathologist. 01/28/2022 12:22 PM CDT [facility] Case Report Surgical Pathology Report Case: [id number] Authorizing Provider: Kathy Mason MD Collected: 01/28/2022 10:46 AM Ordering Location: [facility] Received: 01/28/2022 10:51 AM Pathologist: Flaquito Bruno MD Specimen: Slide Consultation 01/28/2022 12:22 PM CDT [facility] Embedded Images 01/28/2022 12:22 PM CDT [facility] Pathology/Cytolo gy SURGICAL PATHOLOGY CONSULTATION AND REPORT ON REFERRED SLIDES PREPARED ELSEWHERE / Unknown 01/28/2022 10:46 AM CDT 01/28/2022 10:51 AM CDT Kathy Mason MD LAB - PATHOLOGY/CYTOLOGY ORDERAB LES Final Result [facility] [address] [facility] [place] [address], [facility] [phone] documented in this encounter Visit Diagnoses Diagnosis Illness, unspecified documented in this encounter
== END 2024-08-01 09:44 | disposition home or self-care (01) ==
PROVIDERS: PCP Student in an Organized Health Care Education/Training Program; Visit Provider Student in an Organized Health Care Education/Training Program
DX: R22.0 Localized swelling, mass and lump, head (principal)
CPT/HCPCS: 70491; Q9967

== ENCOUNTER 2024-08-09 00:24 | Day surgery (SDC) | payer MEDICARE, MEDICAID, SELFPAY ==
[2024-07-30 15:29] VITALS: BMI 24.2
--- NOTE | 2024-07-30 16:14 | PC.NURSE ---
Report to the Outpatient Waiting Room, entrance under the green pavilion located off [facility], at time __10:00AM on date ___08/09/24____. Planned Procedure Time: __12:00PM .? Time changes happen often and if your time is changed the preop area will call you the afternoon before. - You and your visitor will be asked to self-screen and do not enter if you have any COVID symptoms. Please call surgeon if you need to reschedule. - A mask is optional within the hospital at this time. Patients may have clear liquids (water, carbonated beverages, clear teas, apple juice) until 3 hours prior to surgery (9:00AM) with a maximum of 20 ounces. - No food from midnight until time of surgery and no smoking, or chewing tobacco (or any form of nicotine). No chewing gum, candy or mints. Take only the following medications with a SIP of water on the morning of surgery: ____CARVEDILOL, ISOSORBIDE, RANEXA, VENLAFAXINE. MAY TAKE ALPRAZOLAM AND HYDROCODONE NEEDED DO NOT STOP ANY OF YOUR OTHER PRESCRIPTION MEDICATIONS PRIOR TO SURGERY EXCEPT THE FOLLOWING Hold all vitamins and supplements for 3 days per anesthesiologist.-LAST DOSE 08/05/24. Medications to discontinue per physician ___HOLD ASPIRIN 7 DAYS PRE-OP PER DR ROD Date to take last dose 08/01/24. Please no make-up, nail korean, hairspray, perfume, deodorant, or body powder the day of surgery.? No jewelry (including any body piercings) or valuables the day of surgery, leave them at home.? Please take a shower or bath the night before, or the morning of, surgery with an antibacterial soap.? Wear comfortable, loose fitting clothing.? - Jewelry must be removed prior to entering the operating room.? Rings and piercings that are not removed may be cut off. - The hospital will not accept responsibility for valuables.? - Please leave all valuables, including medications, at home the day of surgery. If you are going home after surgery, a licensed otr company truck driver must drive you home.? - NO public transportation without another adult if you receive anesthesia. - We recommend that an adult stay with you for 24 hours following discharge. - We also recommend that you do not drive, make important decision, drink alcoholic beverages, or take any drugs that were not prescribed by your health care provider for at least 24 hours after your discharge time. Follow any additional instructions given to you from your surgeon. Telephone instructions given to ____PATIENT and asked if any additional questions and then verbalized understanding. Patient advised to call surgeon office or pre surgery nurse liaison [phone] if any additional questions.
[2024-08-09] VITALS (8 sets, daily range): BP systolic 121–153; BP diastolic 55–73; PULSE 67–72; RESP 12–18; TEMP 36.3–36.6; O2SAT 94–99; BMI 23.8
--- NOTE | ~2024-08-09 | XR_ITS ---
INTRAOPERATIVE FLUOROSCOPY: CLINICAL HISTORY: 68 years old Female; STENT REMOVAL/PLACEMENT PROCEDURE COMMENTS: Limited intraoperative fluoroscopy of the abdomen and pelvis was performed. CUMULATIVE DOSE: 10.6 mGy FLUOROSCOPY TIME: 41.2 seconds FINDINGS/IMPRESSION: Please refer to operative note for further details. Reviewed, dictated and finalized at location A.
--- OUTSIDE RECORDS SUMMARY | 2024-08-09 01:07 | XMS_ITS | Encounter Summary ---
Author Organization [facility] Address [facility] [place] [address] Care Team Providers Care Inspector Canvas Products Name Role Phone Jimmy Doyle Primary Care Provider + Reason for Visit * Reason Comments Lab (SCAN) CT (SCAN) Encounter Details Date Type Department Care Team ([facility] Contact Info) Description 08/01/2024 Scan HEALTH INFO [facility] Scanned, [facility] Lab (SCAN); CT (SCAN) Social History Tobacco Use Types Packs/Day Years Used Date Smoking Tobacco: Every Day Cigarettes 1 55 Started: 08/19/1967 Smokeless Tobacco: Never Comments:trying to quit. 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 Legal Sex Female 4:45 PM CDT Gender Identity Female 05/03/2024 9:57 AM FINISH REPAIR WORKER Sexual Orientation Not on file documented as [...] Care Team (Late st Contact Info) Description 08/13/2024 2:00 PM CDT Allied Health/Nurse Visit [facility] Family & Internal Medicine [address] [address] Jimmy Doyle DO [address] [place] [address] 08/31/2024 12:00 PM CDT Office Visit [facility] [address] Abhi Aguilar MD [address] [place] [address] [address] [facility] [place] [address] 11/05/2024 10:20 AM CDT Office Visit [facility] Family [facility] Internal Medicine [address] [address] Jimmy Doyle DO [address] [place] [address] documented as of this encounter Goals Goal Patient Goal Type Associated Problems Recent Progress Patient-Stated? Author Patient will return to prior living situation and remain independent in ADLs upon discharge from hospital General Daysi Nayak RN documented as of this encounter Procedures Procedure Name Priority Date/Time Associated Diagnosis Comments CT GENERIC 08/01/2024 OUTSIDE LAB (SCAN ORDER) 08/01/2024 documented in this encounter Results * OUTSIDE LAB (SCAN ORDER) (08/01/2024) 08/01/2024 [facility] Scanned SCANNING Final Resu lt * CT GENERIC (08/01/2024) Anatomical Region Laterality Modality Other 08/01/2024 [facility] Scanned SCANNING Final Resu lt documented in this encounter Visit Diagnoses Not on filedocumented in this encounter Additional Health Concerns Assessment Noted Time PHQ-9 Depression Total Score: 10 025 9:55 AM FINISH REPAIR WORKER documented as of this encounter Care Teams Inspector Canvas Products Relationship Specialty Start Date End Date Jimmy Doyle DO [address] [place] [address] PCP - General FAMILY PRACTICE 08/19/20 documented as of this encounter
--- OUTSIDE RECORDS SUMMARY | 2024-08-09 01:07 | XMS_ITS | Clinical Summary ---
Author Organization [facility] Address [facility] [place] [address] Care Team Providers Care Clinical Mental Health Counselor Name Role Phone Starla Arshad Vladimir QURESHI [...] Chronic Pain 90 tablet 07/31/19 25 Active cefdinir (OMNICEF) 300 MG Cap capsuleIndication s:Jaw swelling Take 1 capsule (300 mg total) by mouth 2 (two) times daily. 20 capsule 08/02/19 25 Active isosorbide mononitrate ER (IMDUR) 30 [...] Noted Date Diagnosed Date Ureteral cancer, right ([facility]) 025 Bipolar affective disorder, currently depressed, mild ([facility]) 05/03/2023 Sedative, hypnotic or anxiol ytic dependence, uncomplicated ([facility]) 03/25/2022 PAD (peripheral artery disease) 02/19/2022 Right iliac artery stenosis 02/19/2022 Allergies 07/31/2021 Right lower quadrant abdominal pain 07/31/2021 Tobacco abuse 07/31/2021 Radiculopathy, lumbar region 12/29/2020 Other intervertebral disc degeneration, lumbar r egion 12/29/2020 Spondylolisthesis of lumbar region 12/29/2020 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 10/01/2020 Degenerative [...] 08/18/2020 Nausea 08/18/2020 Nicotine dependence 08/18/2020 On rug sample beveler drug therapy 08/18/2020 Polyarthritis 08/18/2020 Postmenopausal status 08/18/2020 Primary osteoarthritis of left knee 08/18/2020 Triggering of digit 08/18/2020 Vitamin D deficiency 08/18/2020 Cerebrovascular accident ([facility]) 04/30 Body mass index (BMI) of 28.0 to 28.9 in adult 0 10/12/2018 Low back pain 10/12/2018 Muscle spasm 02/03/2018 Lumbar foraminal stenosis 01/17/2018 Bulging lumbar disc 01/16/2018 Hypertension 01/16/2018 GERD (gastroesophageal reflux disease) 8 Lumbar stenosis 01/16/2018 Osteoarthrosis 01/16/2018 Depressive disorder 01/16/2018 Chronic obstructive pulmonary disease ([facility] /[facility]) 01/16/2018 Hyperlipidemia 01/16/2018 Resolved Problems Problem Noted Date Diagnosed Date Resolved Date Screening for breast cancer 08/18/2020 08/25/2020 Infiltrate of lung present on chest x-ray 08/18/2020 05/03/2024 Encounter for preventive health examination 02/13/2014 08/25/2020 Encounters Date Type Department Care Team Description 08/02/2024 Results Follow-Up [facility] Internal [address] [phone] Starla Arshad, DO VITAMIN D, 25 OH, LIPID PANEL, TSH W/REFLEX, Additional followed-up results: 2 08/01/2024 8:20 AM CDT Office Visit [facility] Internal [address] [phone] Starla Arshad, DO Bipolar Disorder; Spinal Stenosis ; Emphysema; Coronary Artery Disease; Hypertension 08/01/2024 Scan Parents R People INFO SRVCS Scanned, [facility] Lab (SCAN); CT (SCAN) 08/01/2024 Telephone [facility] Internal [address] [phone] Starla Arshad, DO Referral 08/01/2024 Telephone [facility] Internal [address] [phone] Starla Arshad, DO Information 08/01/2024 Travel 07/31/2024 Telephone [facility] Internal [address] [phone] Starla Arshad P, DO Lab Order 07/30/2024 Telephone [facility] Internal [address] [phone] LucStarla lemus P, DO Medication Request 07/11/2024 Telephone [facility] Internal [address] [phone] Starla Arshad P, DO Medication Request 06/28/2024 Scan zanda SRVCS Scanned, [facility] Procedure (SCAN); Image (SCAN); Pathology (SCAN) 06/25/2024 Telephone [facility] Internal [address] [phone] Starla Arshad P, DO Refill Request 06/22/2024 Telephone [facility] Internal [address] [phone] LucStarla lemus P, DO Refill Request; Advice 06/20/2024 Telephone [facility] [address] Abhi Aguilar MD Surgical Clearance 06/14/2024 1:40 PM ASPHALT MACHINE OPERATOR Allied Health/Nurse Visit [facility] Internal [address] [phone] Starla Arshad P, DO UTI 06/14/2024 - 06/14/2024 11:59 PM ASPHALT MACHINE OPERATOR Hospital Encounter [facility] [address] [place] [address] Starla Arshad, DO Discharge Disposition: Home or Self Care (Routine Discharge) 06/14/2024 Travel 06/12/2024 Telephone [facility] Internal [address] [phone] Starla Arshad, DO Refill Request 06/03/2024 Scan [facility] INFO SRVCS Scanned, [facility] (SCAN) 05/23/2024 Telephone [facility] Internal [address] [phone] Starla Arshad, DO Medication Request 05/22/2024 3:56 PM ASPHALT MACHINE OPERATOR - 05/22/2024 9:24 PM ASPHALT MACHINE OPERATOR Emergency [facility] [place] [address] Kathleen Lilly MD Urinary Symptoms; Dizziness Discharge Disposition: Home or Self Care (Routine Discharge) 05/22/2024 Travel 05/17/[address] [phone] Starla Arshad, DO Information 05/16/2024 Scan [facility] INFO SRVCS Scanned, [facility] (SCAN) 05/16/2024 Scan [facility] INFO SRVCS Scanned, [facility] (SCAN); Image (SCAN); CT (SCAN) 05/16/2024 Telephone [facility] Internal [address] [phone] Starla Arshad, DO Advice 05/15/[address] [phone] Starla Arshad, DO Question 05/14/2024 Telephone [facility] Internal [address] [phone] Starla Arshad, DO Medication Request from Last 3 Months Immunizations Immunization Administration [...] Given: Yes Comments:trying to quit. provider to insurance counsel Alcohol Use Standard Drinks/Week Comments Never [...] Sex Assigned at Female 05/03/2024 9:57 AM ASPHALT MACHINE OPERATOR Legal Sex Female 4:45 PM CDT Gender Identity Female 05/03/2024 9:57 AM ASPHALT MACHINE OPERATOR Sexual Orientation Not on file Last Filed Vital Signs Vital Sign Reading Time Taken Comments Blood Pressure 128/66 08/01/2024 8:17 AM CDT Pulse 85 08/01/2024 8:17 AM CDT Temperature 36.6 C (97.8 F) 08/01/2024 8:17 AM CDT Respiratory Rate 16 05/22/2024 8:59 PM ASPHALT MACHINE OPERATOR Oxygen Saturation 94% 08/01/2024 8:17 AM CDT Inhaled Oxygen Concentration - - Weight 66 kg (145 lb 9.6 oz) 08/01/2024 8:17 AM CDT Height 165.1 cm (5' 5 ) 08/01/2024 8:17 AM CDT Body Mass Index 24.23 08/01/2024 8:17 AM CDT Plan of Treatment Upcoming Encounters Date Type Department Care Team (Late st Contact Info) Description 08/13/2024 2:00 PM CDT Allied Health/Nurse Visit [facility] Medical [facility] Family & Internal Medicine [address] [phone] Starla Arshad DO [address] [place] [address] 08/31/2024 12:00 PM CDT Office Visit [facility] [phone] Abhi Aguilar MD [address] [facility] [address] [place] [phone] 11/05/2024 10:20 AM CDT Office Visit [facility] Medical [facility] Family & Internal Medicine [address] [phone] Starla Arshad DO [address] [place] [address] Health Maintenance Due Date Last Done Comments RSV Immunization or 60+ Years (1 - Risk 60-74 years 1-dose series) 2017 Mammogram Screening 09/09/2022 09/09/2020, COVID-19 Vaccine (6 - Pfizer risk 2023- [...] 12/31/2022, 01/12/2020, Additional history exists PHQ-2 (Physician [place]) Completed 05/03/2024 Meningococcal B Vaccine Aged Out [...] independent in ADLs upon discharge from hospital [facility] 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 Procedure Name Priority Date/Time Associated Diagnosis Comments CBC W/DIFF AUTOMATED Routine 08/01/2024 9:26 AM CDT Essential hypertension Mixed hyperlipidemia COMPREHENSIVE METABOLIC PANEL Routine 08/01/2024 9:26 AM CDT Essential hypertension Mixed hyperlipidemia TSH W/REFLEX Routine 08/01/2024 9:26 AM CDT Essential hypertension Mixed hyperlipidemia LIPID PANEL Routine 08/01/2024 9:26 AM CDT Essential hypertension Mixed hyperlipidemia VITAMIN D, 25 OH Routine 08/01/2024 9:26 AM CDT Essential hypertension Mixed hyperlipidemia Vitamin D deficiency COLLECTION VENOUS BLOOD VENIPUNCTURE Routine 08/01/2024 8:34 AM CDT Essential hypertension Mixed hyperlipidemia CT GENERIC 08/01/2024 OUTSIDE LAB (SCAN ORDER) 08/01/2024 PATHOLOGY GENERIC (SCAN ORDER) 06/28/2024 IMAGE GENERIC 06/28/2024 PROCEDURE GENERIC (SCAN ORDER) 06/28/2024 URINE BACTERIA CULTURE Routine 06/14/2024 10:27 AM ASPHALT MACHINE OPERATOR Dysuria URINALYSIS AUTO DIP Routine 06/14/2024 Dysuria OUTSIDE LAB (SCAN ORDER) 06/03/2024 OUTSIDE LAB (SCAN ORDER) 06/03/2024 OUTSIDE LAB (SCAN ORDER) 06/03/2024 ECG 12-LEAD Routine 05/22/2024 4:19 PM ASPHALT MACHINE OPERATOR TROPONIN, QUANT STAT 05/22/2024 4:08 PM ASPHALT MACHINE OPERATOR COMPREHENSIVE METABOLIC PANEL STAT 05/22/2024 4:08 PM ASPHALT MACHINE OPERATOR CBC W/DIFF AUTOMATED STAT 05/22/2024 4:08 PM ASPHALT MACHINE OPERATOR URINE BACTERIA CULTURE STAT 05/22/2024 3:19 PM ASPHALT MACHINE OPERATOR HC URINALYSIS AUTO W/O MICRO STAT 05/22/2024 3:19 PM ASPHALT MACHINE OPERATOR XR CHEST PORTABLE STAT 05/22/2024 3:0 2 PM ASPHALT MACHINE OPERATOR CT GENERIC 05/16/2024 CT GENERIC 05/16/2024 OUTSIDE LAB COVID-19 (SCAN ORDER) Routine 05/16/2024 OUTSIDE LAB (SCAN ORDER) 05/16/2024 OUTSIDE LAB (SCAN ORDER) 05/16/2024 OUTSIDE LAB (SCAN ORDER) 05/16/2024 OUTSIDE LAB (SCAN ORDER) 05/16/2024 OUTSIDE LAB (SCAN ORDER) 05/16/2024 OUTSIDE LAB (SCAN ORDER) 05/16/2024 OUTSIDE LAB (SCAN ORDER) 05/16/2024 IMAGE GENERIC 05/16/2024 IMAGE GENERIC 05/16/2024 HEPATITIS C ANTIBODY Routine 04/05/2023 8:24 AM ASPHALT MACHINE OPERATOR Primary hypertension Screening for lipid disorders Screening for endocrine, metabolic and immunity disorder Annual physical exam Need for hepatitis C screening test [facility] BILAT DIGI Routine 09/09/2020 12:14 PM CDT Breast lump on left side at 10 o'clock position from Last 3 Months or Most Recently Relevant to Health Maintenance Results * TSH W/REFLEX (08/01/2024 9:26 AM CDT) TSH 1.455 0.358 - 3.740 uIU/ML 08/01/2024 3:42 PM CDT [facility] 08/01/2024 9:26 AM CDT Starla Arshad DO LABORATORY Final Re sult [facility] [address] [place] [address], * (ABNORMAL) COMPREHENSIVE METABOLIC PANEL (08/01/2024 9:26 AM CDT) Only the most recent of2 resultswithin the time period is included. SODIUM S/P/B 141 136 - 145 MMOL/L 08/01/2024 3:42 PM CDT [facility] POTASSIUM S/P/B 3.7 3.5 - 5.1 MMOL/L 08/01/2024 3:42 PM CDT [facility] CHLORIDE S/P/B 102 98 - 107 MMOL/L 08/01/2024 3:42 PM CDT [facility] CO2 33.1(H) 21 - 32 MMOL/L 08/01/2024 3:45 PM CDT [facility] Comment:RESULTS CONFIRMED-TE ST REPEATED GLUCOSE 104(H) 70 - 99 MG/DL 08/01/2024 3:42 PM CDT [facility] BUN 11 7 - 18 MG/DL 08/01/2024 3:42 PM T [facility] CREATININE S/P/B 0.70 0.55 - 1.02 MG/DL 08/01/2024 3:42 PM T [facility] CALCIUM S/P/B 9.4 8.4 - 10.5 MG/DL 08/01/2024 3:42 PM [facility]T [facility] BILIRUB[facility] TOTAL S/P/B 0.6 0.2 - 1.0 MG/DL 08/01/2024 3:42 PM T [facility] ALKALINE PHOSPHATASE S/P/B 70 55 - 142 U/L 08/01/2024 3:42 PM T [facility] AST 17 15 - 37 U/L 08/01/2024 3:42 PM CDT [facility] ALT 16 14 - 59 U/L 08/01/2024 3:42 PM CDT [facility] TOTAL PROTEIN S/P/B 7.6 6.4 - 8.2 G/DL 08/01/2024 3:42 PM T [facility] ALBUMIN S/P/B 3.7 3.4 - 5.0 G/DL 08/01/2024 3:42 PM T [facility] ANION GAP 5.9 5 - 15 MMOL/L 08/01/2024 3:45 PM CDT [facility] Comment:REFERENCE RANGE NOT ESTABLISHED OSMOLALITY (CALC) 292 MOSM/KG 025 3:42 PM CDT [facility] Comment:REFERENCE RANGE NOT ESTABLISHED GFR ESTIMATE >90 >90 ML/MIN/1. 73 M2 08/01/2024 3:42 PM T [facility] GFR NOTES GFR REFERENCE S: 08/01/2024 3:42 PM T [facility] Comment: THE ESTIMATED GFR IS CALCULATED USING THE 2020 CKD-EPI EQUATION. THE FOLLOWING CATEGORIES FOR GRADING RENAL FUNCTION ARE RECOMMENDED BY THE INTERNATIONAL SOCIETY OF NEPHROLOGY (KDIGO 2012 CLINICAL PRACTICE GUIDELINE). G1,NORMAL OR HIGH: >89 ml/min/1.73 m2 G2,MILDLY DECREASED: 60-89 ml/min/1.73 m2 G3A,MILDLY TO MODERATELY DECREASED: 45-59 ml/min/1.73 m2 G3B,MODERATELY TO SEVERELY DECREASED: 30-44 ml/min/1.73 m2 G4,SEVERELY DECREASED: 15-29 ml/min/1.73 m2 G5,KIDNEY FAILURE: <15 ml/min/1.73 m2 08/01/2024 9:26 AM CDT Starla Arshad DO LABORATORY Final Re sult [facility] [address] [place] [address], * (ABNORMAL) LIPID PANEL (08/01/2024 9:26 AM CDT) CHOLESTEROL 112 <200 MG/DL 08/01/2024 3:42 PM CDT [facility] TRIGLYCERIDES 58 <150 MG/DL 08/01/2024 3:42 PM CDT [facility] HDL 40(L) >40 MG/DL 08/01/2024 3:42 PM CDT [facility] LDL-C 60 <100 MG/DL 08/01/2024 3:42 PM CDT [facility] VLDL CALCULATION 12 5 - 28 MG/DL 08/01/2024 3:42 PM CDT [facility] CHOL/HDL RATIO 2.8 0.0 - 4.0 08/01/2024 3:42 PM CDT [facility] LDL/HDL 1.5 0.41 - 2.13 08/01/2024 3:42 PM CDT [facility] NON HDL CHOLESTEROL 72 <140 MG/DL 08/01/2024 3:42 PM CDT [facility] 08/01/2024 9:26 AM CDT Starla Vladimir Arshad DO LABORATORY Final Re sult [facility] [place] [address] [place] [address], * CBC W/DIFF AUTOMATED (08/01/2024 9:26 AM CDT) Only the most recent of2 resultswithin the time period is included. WBC 8.07 4.00 - 10.80 x10'3/uL 08/01/2024 2:43 PM CDT [facility] RBC 4.19 4.10 - 5.40 x10'6/uL 08/01/2024 2:43 PM CDT [facility] HGB 13.0 12.0 - 16.0 G/DL 08/01/2024 2:43 PM CDT [facility] HCT 38.4 36.0 - 47.0 % 08/01/2024 2:43 PM CDT [facility] MCV 91.6 78.0 - 100.0 FL 08/01/2024 2:43 PM CDT [facility] MCH 31.0 27.0 - 31.0 PG 08/01/2024 2:43 PM CDT [facility] MCHC 33.9 33.0 - 36.0 G/DL 08/01/2024 2:43 PM CDT [facility] RDW 13.2 11.5 - 14.5 % 08/01/2024 2:43 PM CDT [facility] PLT 281 150 - 350 x10'3/uL 08/01/2024 2:43 PM CDT [facility] MPV 9.4 7.4 - 10.4 FL 08/01/2024 2:43 PM CDT [facility] DIFFERENTIAL TYPE AUTOMATED DIFFERENTIAL 08/01/2024 2:43 PM CDT [facility] NEUTROPHILS % 68.6 % 08/01/2024 2:43 PM CDT [facility] LYMPHOCYTES % 18.2 % 08/01/2024 2:43 PM CDT [facility] MONOCYTES % 7.9 % 08/01/2024 2:43 PM CDT [facility] EOSINOPHILS % 4.8 % 08/01/2024 2:43 PM CDT [facility] BASOPHILS % 0.4 % 08/01/2024 2:43 PM CDT [facility] IMMATURE GRANS % 0.1 % 08/01/2024 2:43 PM CDT [facility] ABS. NEUTROPHILS 5.53 1.60 - 8.30 x10'3/uL 08/01/2024 2:43 PM CDT [facility] ABS. LYMPHOCYTES 1.47 0.80 - 4.70 x10'3/uL 08/01/2024 2:43 PM CDT [facility] ABS. MONOCYTES 0.64 0.00 - 1.50 x10'3/uL 08/01/2024 2:43 PM CDT [facility] ABS. EOSINOPHILS 0.39 0.00 - 0.40 x10'3/uL 08/01/2024 2:43 PM CDT [facility] ABS. BASOPHILS 0.03 0.00 - 0.20 x10'3/uL 08/01/2024 2:43 PM CDT [facility] ABS. IMMATURE GRANULOCYTES 0.01 0.00 - 0.03 x10'3/uL 08/01/2024 2:43 PM CDT [facility] 08/01/2024 9:26 AM CDT us Starla P Luchtefeld DO LABORATORY Final Re sult Performing Organization Address City/[facility]/ZIP Co de Phone Number [address] [address], * VITAMIN D, 25 OH (08/01/2024 9:26 AM CDT) VITAMIN D 25 HYDROXY TOTAL S/P/B 31.9 30 - 100 NG/ML 08/01/2024 3:42 PM CDT [facility] Comment: DEFICIENT <20 INSUFFICIENT 20-30 SUFFICIENT 30-100 08/01/2024 9:26 AM CDT Result [facility] Starla Arshad DO LABORATORY Final Re sult Performing Organization Address [facility] Co de Phone Number [address] [phone], * CT GENERIC (08/01/2024) Only the most recent of3 resultswithin the time period is included. Anatomical Region Laterality Modality Other 08/01/2024 [facility] Scanned SCANNING Final Resu lt * OUTSIDE LAB (SCAN ORDER) (08/01/2024) Only the most recent of11 resultswithin the time period is included. 08/01/2024 [facility] Scanned SCANNING Final Resu lt * PATHOLOGY GENERIC (SCAN ORDER) (06/28/2024) 06/28/2024 [facility] Scanned SCANNING Final Resu lt * IMAGE GENERIC (06/28/2024) Only the most recent of3 resultswithin the time period is included. Anatomical Region Laterality Modality Other 06/28/2024 [facility] Scanned SCANNING Final Resu lt * PROCEDURE GENERIC (SCAN ORDER) (06/28/2024) 06/28/2024 [facility] Scanned SCANNING Final Resu lt * URINE BACTERIA CULTURE (06/14/2024 10:27 AM ASPHALT MACHINE OPERATOR) Only the most recent of2 resultswithin the time period is included. SPEC DESCRIPTION URINE CLEAN CATCH 06/14/2024 2:05 PM [facility] SPECIAL REQUESTS NO SPECIAL REQUEST 06/14/2024 2:05 PM [facility] CULTURE RESULT EQUAL OR >100,000 CFU/mL ESCHERICHIA COLI 06/16/2024 9:58 AM [facility] URINE SPECIMEN OBTAINED BY CLEAN CATCH PROCEDURE / Unknown 06/14/2024 10:27 AM ASPHALT MACHINE OPERATOR 06/14/2024 5:11 PM ASPHALT MACHINE OPERATOR Narrative Organism Antibiotic Method Susceptibility [...] MICROBIOLOGY - GENERAL O RDERABLES Final Result [facility] [address] [place] [address], [place] [phone] [id number] * (ABNORMAL) URINALYSIS AUTO DIP (06/14/2024) COLOR (U) BROWN(A) YELLOW [facility] TRANSPARENCY TURBID(A) CLEAR [facility] GLUCOSE (U) NEGATIVE NEGATIVE MG/DL [facility] BILIRUBIN (U) 2+ (MODERATE)(A ) NEGATIVE [facility] KETONES MG/DL (U) 5 (TRACE)(A) NEGATIVE MG/DL [facility] SPECIFIC GRAVITY (U) 1.020 1.001 - 1.035 [facility] BLOOD (U) LARGE (Non Hemolyzed, Intact, About 250 rbc/uL)(A) NEGATIVE [facility] U PH 5.5 5.0 - 9.0 [facility] PROTEIN (U) 3+ (>=300)(A) NEGATIVE mg/dL [facility] UROBILINOGEN 4.0(A) 0.2 - 1.0 EU/dL = mg/dL [facility] NITRITES POSITIVE(A) NEGATIVE MG/DL [facility] LEUKOCYTES (U) 3+ (LARGE)(A) NEGATIVE [facility] URINE SPECIMEN OBTAINED BY CLEAN CATCH PROCEDURE / Unknown 06/14/2024 Starla Arshad DO URINE ORDERABLES Final R esult Performing Organization Address City/[facility]/ZIP Co de Phone Number [facility] [address] [place] [address], [place] * ECG 12 lead (05/22/2024 4:19 PM ASPHALT MACHINE OPERATOR) 05/22/2024 4:19 PM ASPHALT MACHINE OPERATOR Narrative [facility] - 05/22/2024 11:53 PM ASPHALT MACHINE OPERATOR [address] Test Date: 2024-05-22 Pat Name: DANNY VARGAS Department: 41 Room: VAUGHN Gender: Female Educational Adviser: [id number] : 1955 Requested By: VIN VEGAS Order Number: [id number] Reading : Chuy Dowell Measurements Intervals [place] Rate: 70 P: 68 SD: 185 QRS: 69 QRSD: 94 T: 41 QT: 385 QTc: 416 Interpretive Statements SINUS RHYTHM NONSPECIFIC T-WAVE ABNORMALITY Compared to ECG 04/01/2023 11:55:20 T-wave abnormality now present ALT MACHINE OPERATOR Procedure Note Chuy Dowell MD - 05/22/[address] Test Date: 2024-05-22 Pat Name: DANNY VARGAS Department: 41 Room: VAUGHN Gender: Female Educational Adviser: [id number] : 1955 Requested By: VIN VEGAS Order Number: [id number] Reading : Chuy Dowell Measurements Intervals [place] Rate: 70 P: 68 SD: 185 QRS: 69 QRSD: 94 T: 41 QT: 385 QTc: 416 Interpretive Statements SINUS RHYTHM NONSPECIFIC T-WAVE ABNORMALITY Compared to ECG 04/01/2023 11:55:20 T-wave abnormality now present ALT MACHINE OPERATOR us Vin [place] LIVE STUDY MANAGER ECG ORDERABLES Final Result [facility] RAD * TROPONIN, QUANT (05/22/2024 4:08 PM ASPHALT MACHINE OPERATOR) TROPONIN I HIGH SENSITIVITY <3 <54 ng/L 05/22/2024 5:11 PM ASPHALT MACHINE OPERATOR [facility] Comment: HIGH DOSES OF BIOTIN, TROPONIN-SPECIFIC AUTOANTIBODIES, AND ANTIBODY THERAPY CONTAINING HAMA MAY INTERFERE WITH THIS TEST RESULT. CORRELATION TO CLINICAL HISTORY AND PRESENTATION RECOMMENDED. 05/22/2024 4:08 PM ASPHALT MACHINE OPERATOR [place] NP LABORATORY Final Result [facility] [address] [place] [address], * (ABNORMAL) URINALYSIS (05/22/2024 3:19 PM ASPHALT MACHINE OPERATOR) SPECIMEN TYPE URINE CLEAN CATCH 05/22/2024 3:22 PM ASPHALT MACHINE OPERATOR [facility] COLOR (U) LIGHT ORANGE 05/22/2024 3:33 PM ASPHALT MACHINE OPERATOR [facility] TRANSPARENCY TURBID 05/22/2024 3:33 PM ASPHALT MACHINE OPERATOR [facility] SPECIFIC GRAVITY (U) 1.013 1.001 - 1.030 05/22/2024 3:33 PM ASPHALT MACHINE OPERATOR [facility] U PH 6.5 5.0 - 9.0 05/22/2024 3:33 PM [facility] LEUKOCYTES (U) 25(A) NEGATIVE 05/22/2024 3:33 PM ASPHALT MACHINE OPERATOR [facility] NITRITES NEGATIVE NEGATIVE 05/22/2024 3:33 PM ASPHALT MACHINE OPERATOR [facility] PROTEIN RANDOM (U) 20 <30 MG/DL 05/22/2024 3:33 PM ASPHALT MACHINE OPERATOR [facility] GLUCOSE (U) NORMAL NORMAL MG/DL 05/22/2024 3:33 PM ASPHALT MACHINE OPERATOR [facility] KETONES MG/DL (U) NEGATIVE NEGATIVE MG/DL 05/22/2024 3:33 PM ASPHALT MACHINE OPERATOR [facility] UROBILINOGEN NORMAL NORMAL MG/DL 05/22/2024 3:33 PM ASPHALT MACHINE OPERATOR [facility] BILIRUBIN (U) NEGATIVE NEGATIVE MG/DL 05/22/2024 3:33 PM ASPHALT MACHINE OPERATOR [facility] BLOOD (U) 3+(A) NEGATIVE 05/22/2024 3:33 PM ASPHALT MACHINE OPERATOR [facility] WBC/HPF 88(H) <6 /HPF 05/22/2024 3:33 PM ASPHALT MACHINE OPERATOR [facility] RBC/HPF >100(H) <6 /HPF 05/22/2024 3:33 PM ASPHALT MACHINE OPERATOR [facility] BUDDING YEAST RARE(A) NONE /HPF 05/22/2024 3:33 PM ASPHALT MACHINE OPERATOR [facility] SQUAMOUS EPITHELIALS RARE /HPF 05/22/2024 3:33 PM ASPHALT MACHINE OPERATOR [facility] URINE SPECIMEN OBTAINED BY CLEAN CATCH PROCEDURE / Unknown 05/22/2024 3:19 PM ASPHALT MACHINE OPERATOR us [place] LIVE STUDY MANAGER URINE ORDERABLES Final Result [facility] [address] [place] [address], [place] [phone] * XR CHEST PORTABLE (05/22/2024 3:02 PM ASPHALT MACHINE OPERATOR) Anatomical Region Laterality Modality Chest Radiographic Nuris ging 05/22/2024 3:04 PM ASPHALT MACHINE OPERATOR Impressions 05/22/2024 3:05 PM ASPHALT MACHINE OPERATOR Impression: Unremarkable one view chest; no radiographic evidence of acute/active cardiopulmonary disease Ordered By: VIN VEGAS Interpreted By: Lisa Edwards MD, 05/22/2024 3:04 PM Narrative 05/22/2024 3:05 PM ASPHALT MACHINE OPERATOR [facility] [address] [place], [place] [address] Examination: Chest x-ray 1 view Exam date/time: [...] Procedure Note Lisa Edwards MD - 05/22/[address] [address] Examination: Chest x-ray 1 view Exam date/time: [...] Edwards MD, 05/22/2024 3:04 PM [place] LIVE STUDY MANAGER GENERAL IMAGING Final Result * OUTSIDE LAB COVID-19 (05/16/2024) CORONAVIRUS SARS COV 2 PCR (RESP) NOT DETECTED NOT DETECTED [facility] ONBASE 05/16/2024 [facility] Scanned SCANNING Final Resu lt [facility] ONBASE * HEPATITIS C ANTIBODY (04/05/2023 8:24 AM ASPHALT MACHINE OPERATOR) HEPATITIS C AB NON-REACTI VE NON-REACT RAUL 04/05/2023 6:53 PM ASPHALT MACHINE OPERATOR [facility] Comment: ANTIBODIES TO HCV NOT DETECTED. DOES NOT EXCLUDE THE POSSIBILITY OF EXPOSURE TO HCV. 04/05/2023 8:24 AM ASPHALT MACHINE OPERATOR us Starla Arshad DO LABORATORY Final Re sult [facility] [address] [place] [address], [id number] * MG DIAG W WILMER BILAT DIGI [...] Examination: Bilateral digital diagnostic mammogram with CAD. [id number] Clinical history: Left breast lump and tenderness. [...] demonstrate any discrete solid or cystic mass. [place] appearing tissue architecture is demonstrated. Physical exam surveillance is advised with any further evaluation at this point guided on that basis. From a mammographic standpoint, routine follow-up in one year would seem adequate. These findings were discussed with the patient. Starla Arshad DO MAMMO Final Re sult from Last 3 Months or Most Recently Relevant to Health Maintenance Insurance [facility] MEDICAID Advance Directives * Full Code (Latest Code Status on File) Date Activated Date Inactivated Comments 09/22/2020 12:40 PM 09/23/2020 12:52 PM Care Teams Clinical Mental Health Counselor Relationship Specialty Start Date End Date Starla Arshad DO [address] [place] [address] PCP - General FAMILY PRACTICE 08/19/20
--- OUTSIDE RECORDS SUMMARY | 2024-08-09 01:07 | XMS_ITS | Encounter Summary ---
Author Organization [facility] Address [facility] [place] [address] Care Team Providers Care Platform Stapler Name Role Phone Jimmy Doyle Primary Care Provider + Encounter Details Date Type Department Care Team (Late st Contact Info) Description 01/11/2022 Abstract [facility] [address] Doni Moore MA Social History Tobacco Use Types Packs/Day Years Used Date Smoking Tobacco: Every Day Cigarettes 1 55 Started: [birth year]/19/1967 Smokeless Tobacco: Never Comments:trying to quit. 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 SERVER Legal Sex Female 4:45 PM CDT Gender Identity Female 05/03/2024 9:57 AM DIETARY SERVER Sexual Orientation Not on file COVID-19 Exposure [...] 08/13/2024 2:00 PM CDT Allied Health/Nurse Visit [facility] Family & Internal Medicine - [address] [phone] Jimmy Doyle DO [address] [place] [address] 08/31/2024 12:00 PM CDT Office Visit [facility] [address] Abhi Aguilar MD [address] [place] [address] [place] [phone] 11/05/2024 10:20 AM CDT Office Visit [facility] Family & Internal Medicine - [place] [address] [place] [address] Jimmy Doyle DO [address] [place] [address] documented as of this encounter Goals Goal Patient Goal Type Associated Problems Recent Progress Patient-Stated? Author Patient will return to prior living situation and remain independent in ADLs upon discharge from [facility] Daysi Nayak RN documented as of [...] Total Score: 8 05/13/19 22 10:36 AM DIETARY SERVER documented as of this encounter Care Teams Platform Stapler Relationship Specialty Start Date End Date Jimmy Doyle DO [address] [place] [address] PCP - General FAMILY PRACTICE 08/19/20 documented as of this encounter
--- OUTSIDE RECORDS SUMMARY | 2024-08-09 01:07 | XMS_ITS | Continuity of Care Document ---
Author Organization [facility] Address [address] [place] [address] [address] [place] [address] Phone Care Team Providers Care Cloth Colorer Name Role Phone Idris PT, DEMARCOT, Ave Unavailable Unavailable Procedures Procedure Date Therapeutic Exercise Neuromuscular Re-Ed Therapeutic Activities Hot or Cold Pack PT Evaluation Low Complexity Neuromuscular Re-Ed Therapeutic Activities Advance Directives Directive Yes / No Effective Date File Name No Information Encounters Encounter Description Practice Location Reason(s) For Visit Diagnoses Date Provider Providers Copied on Encounter [facility] [address], [id number], tel:[phone] [place] No Information Sep-0 1 Idris Dorado. . [facility] [address] [place] [address], [id number], tel:[phone] [place] No Information Sep-0 2 1 Idris Dorado. . Referring Provider: Jimmy Doyle , [address] [place] [address], [address]. tel:[phone], [id number], tel:[phone] [place] No Information Nov- 0-202 1 Idris Dorado. . Referring Provider: Jimmy Doyle , [address] [place] [address], [address]. tel:[phone] Family History Family Member Type Diagnosis Age At Onset No Information Payers Payer name Insurance type Covered democrat ID Authorcesiliapauline jamietristian(s) Medicare [place] [id number] Medicaid OON Write Off CI 00 Social [...]
--- OUTSIDE RECORDS SUMMARY | 2024-08-09 01:07 | XMS_ITS | Encounter Summary ---
Author Organization [facility] Address [facility] [place] [address] Care Team Providers Care Parliamentary Librarian Name Role Phone New Referring, Provider Primary Care Provider Un available Jimmy Doyle DO Primary Care Provider + Encounter Details Date Type Department Care Team (Latest Contact Info) Description 12/12/2017 Abstract [facility] , Farhana Aguilera MD Social History Tobacco Use Types Packs/Day Years Used Date Smoking Tobacco: Never Assessed Comments Unknown Sex and Gender Information Value Date Recorded Sex Assigned at Female 05/03/2024 9:57 AM INSPECTOR MISSILE Legal Sex Female 4:45 PM CDT Gender Identity Female 05/03/2024 9:57 AM INSPECTOR MISSILE Sexual Orientation Not on file documented as of this encounter Plan of Treatment Upcoming Encounters Date Type Department Care Team (Late st Contact Info) Description 08/13/2024 2:00 PM CDT Allied Health/Nurse Visit [facility] Family & Internal Medicine - [address] [address] Jimmy Doyle DO [address] [place] [address] 08/31/2024 12:00 PM CDT Office Visit [facility] [address] Abhi Aguilar MD [address] [place] [address] [place] [address] 11/05/2024 10:20 AM CDT Office Visit [facility] Family & Internal Medicine [facility] [address] [place] [address] Jimmy Doyle DO [address] [place] [address] documented as of this encounter Visit Diagnoses Not on filedocumented in this encounter Additional Health Concerns Infection Onset Date Last Indicated Resolved Time COVID-19 Rule Out 01/13/2022 01/13/2022 01/13/2022 9:32 AM CDT COVID-19 Rule Out 01/13/2022 01/13/2022 01/13/2022 9:59 AM CDT COVID-19 Rule Out 01/27/2023 01/27/2023 01/27/2023 11:28 AM CDT documented as of this encounter Care Teams Parliamentary Librarian Relationship Specialty Start Date End Date New Referring, Provider PCP - General UNKNOWN PHYSICIAN SPECIALTY 01/25/18 08/18/20 Jimmy Doyle DO [facility] [place] [address] PCP - General FAMILY PRACTICE 08/19/20 documented as of this encounter
--- OUTSIDE RECORDS SUMMARY | 2024-08-09 01:07 | XMS_ITS | Clinical Summary ---
Author Organization [facility] Address [facility] [place] [address] Care Team Providers Care Pipe Fitter Supervisor Name Role Phone Jimmy Doyle Primary Care Provide r Derrell Varma MD Unavailable [phone] Allergies Active Allergy Reactions Criticality Noted [...] on file Legal Sex Female 12:04 PM DIRECTOR STARS Gender Identity Not on file Sexual Orientation [...] Zoster Vaccine Completed 04/06/2021, 01/27/2021 Insurance IDPA [facility] MEDICARE ADVANTAGE [facility] MEDIC[facility] Address: [address] [address] [place] [address] IDPA [facility] MEDICARE ADVANTAGE [facility] MEDICARE ADVANTAGE [facility] Advance Directives For more information, please contact: [phone] * Full Code (Latest Code Status on File) Date Activated Date Inactivated Comments 02/09/2022 9:51 PM 02/12/2022 5:52 PM Care Teams Pipe Fitter Supervisor Relationship Specialty Start Date End Date Jimmy Doyle DO [address] [place] [address] PCP - General Family Medicine 02/12/22 Derrell Varma MD [facility] [address] [address] Surgeon Surgery 02/12/22
--- OUTSIDE RECORDS SUMMARY | 2024-08-09 01:07 | XMS_ITS | Clinical Summary ---
Author Organization [facility] Address [address] [place] [address] Care Team Providers Care Ship'S Carpenter Name Role Phone Unavailable Primary Care Provider Unavailabl e Source Comments [facility],non-owned Affiliates and Associated Physician Practices is amultiple site organization consisting of ambulatory clinics and hospital sitesin [place], [place], [place] and [place]. This disclosure is being madepursuant to the Care Everywhere program and may not contain all information available regarding this patient. Last updated 18.[facility] [employer] Social History Tobacco Use Types Packs/Day Years Used Date Smoking Tobacco: Never Assessed Comments Unknown Sex and Gender Information Value Date Recorded Sex Assigned at Not on file Legal Sex Female 6:27 PM ANALYSIS INTERNSHIP Gender Identity Not on file Sexual Orientation [...] 2023-2 5 season) 2023 DEPRESSION SCREENING 04/18/2024 MEDICARE AWV CALENDAR YEAR 2024 INFLUENZA VACCINE (Season Ended) 2024 Respiratory Syncytial [...] patient's age to complete this topic Insurance [facility] MANAGED MEDICARE [facility] [place] [address] MEDICAID - [place] SELF PAY NO INSURANCE Member Subscriber Plan / Payer (Ef fective for All Dates) Name:Jeniffer Vargas Member ID:Not on file Relation to Subscriber:Not on file Name:JENIFFER VARGAS Subscriber ID:Not on file (Home) Address: [address] [place] [address] Payer ID:Not on file Group ID:Not on file Type:Self Pay Address: [place], [place] [facility] MANAGED MEDICARE ADV
--- OUTSIDE RECORDS SUMMARY | 2024-08-09 01:07 | XMS_ITS | Referral Summary ---
Author Organization [facility] Address [facility] [place] [address] Care Team Providers Care Security Operations Specialist Name Role Phone Jimmy Doyle Primary Care Provide r Derrell Varma MD Unavailable [phone] Allergies Active Allergy Reactions Criticality Noted [...] on file Legal Sex Female 12:04 PM HADOOP APPLICATION DEVELOPER Gender Identity Not on file Sexual Orientation [...] of Treatment Not on file Insurance IDPA [facility] MEDICARE ADVANTAGE [place] [facility] MEDICARE ADVANTAGE [facility] MEDICARE [facility] Address: [address] [address] [place] [address] IDPA Advance Directives For more information, please contact: [phone] * Full Code (Latest Code Status on File) Date Activated Date Inactivated Comments 02/09/2022 9:51 PM 02/12/2022 5:52 PM Care Teams Security Operations Specialist Relationship Specialty Start Date End Date Jimmy Doyle DO [address] [place] [address] PCP - General Family Medicine 02/12/22 Derrell Varma MD [address] [facility] [address] [address] Surgeon Surgery 02/12/22
--- OUTSIDE RECORDS SUMMARY | 2024-08-09 01:07 | XMS_ITS | Encounter Summary ---
Author Organization [facility] Address [address] [place] [address] Care Team Providers Care Weight Loss Consultant Name Role Phone Unavailable Primary Care Provider Unavailabl e Encounter Details Date Type Department Care Team (Late st Contact Info) Description 01/28/2022 Lab Requisition [facility] [address] [place] [address] Kathy Mason MD [address] [place], [place] [phone] Illness, unspecified Social History Tobacco Use Types Packs/Day Years Used Date Smoking Tobacco: Never Assessed Comments Unknown Sex and Gender Information Value Date Recorded Sex Assigned at Not on file Legal Sex Female 6:27 PM VENEER DRIER FEEDER Gender Identity Not on file Sexual Orientation [...] 10:46 AM CDT) Final Diagnosis URINE/VOIDED (OSC: [id number]; 01/25/2022): - Negative for high grade urothelial carcinoma 01/28/2022 12:22 PM CDT [facility] Microscopic Description and Comment Microscopic examination substantiates the final diagnosis. 01/28/2022 12:22 PM CDT [facility] Clinical History HEMATURIA 01/28/2022 12:22 PM CDT [facility] Materials Received One thin prep slide received from [facility] [id number]. All material will be returned. 01/28/2022 12:22 PM CDT [facility] Disclaimer The performance characteristics of all immunohistochemical and indirect immunofluorescence stains (if any) cited in this report were determined by the [facility]. Some of these tests were developed [...] LAB Case Report Surgical Pathology Report Case: [id number] Authorizing Provider: Kathy Mason MD Collected: 01/28/2022 10:46 AM Ordering Location: [facility] Received: 01/28/2022 10:51 AM [...] LAB - PATHOLOGY/CYTOLOGY ORDERAB LES Final Result [facility] [address] [place] [address], [facility] [phone] documented in this encounter Visit Diagnoses Diagnosis Illness, unspecified documented in this encounter
--- OUTSIDE RECORDS SUMMARY | 2024-08-09 01:07 | XMS_ITS | Encounter Summary ---
Author Organization [facility] Address [facility] [place] [address] Care Team Providers Care Automobile Designer Name Role Phone Jimmy Doyle DO Primary Care Provider + Encounter Details Date Type Department Care Team (Late st Contact Info) Description 06/23/2022 Prep for Procedure [facility] [address] [place], [place] [phone] Flaquito Valera MD [facility]. [facility] [address] [place], [place] [phone] Social History Tobacco Use Types Packs/Day Years Used Date Smoking Tobacco: Every Day Cigarettes 1 55 Started: 08/19/1967 Smokeless Tobacco: Never Comments:trying to quit. 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 No / Unsure 06/24/2022 12:41 PM GEOSCIENCE SPECIALIST documented as of this encounter Functional Status [...] things Not at all 06/24/2022 1:19 PM GEOSCIENCE SPECIALIST Adia Mckenna MA Active Feeling down, depressed, or hopeless Nearly every day 06/24/2022 1:19 PM GEOSCIENCE SPECIALIST Adia Mckenna MA Active Patient Health Questionnaire-2 Score 3 06/24/2022 1:19 PM GEOSCIENCE SPECIALIST Adia Mckenna MA Active documented as of [...] 08/13/2024 2:00 PM CDT Allied Health/Nurse Visit [facility] Family & Internal Medicine [place] [phone] Jimmy Doyle DO [address] [place] [address] 08/31/2024 12:00 PM CDT Office Visit [facility] [address] [place] [address] Abhi Aguilar MD [address] [facility] [address] [facility] [place] [address] 11/05/2024 10:20 AM CDT Office Visit [facility] Family & Internal Medicine - [address] [phone] Jimmy Doyle DO [address] [place] [address] documented as of this encounter Goals Goal [...] Total Score: 8 05/13/19 22 10:36 AM GEOSCIENCE SPECIALIST documented as of this encounter Care Teams Automobile Designer Relationship Specialty Start Date End Date Jimmy Doyle DO [address] [place] [address] PCP - General FAMILY PRACTICE 08/19/20 documented as of this encounter
--- OUTSIDE RECORDS SUMMARY | 2024-08-09 01:07 | XMS_ITS | Data Portability ---
Author Organization [facility] OFF[facility] Address [address] [place] [address] Care Team Providers Care Fiber Optic Technician Name Role Phone JESUS MACEDO Primary Care Provider JESUS MACEDO Referring Provider Assessment No assessment [...] By Organization Details Last Modified Time 04/30/2020 12090 Exercise advised Low cholesterol diet advised Low sodium diet advised [email or web address] Not available 04/30/2020 16:38:42 Scribed by Kamila Michele [facility] [email or web address] Not available 04/30/2020 16:38:44 Reason [...] bibasiller atelectasis or infection,clinical correlation. Efra Whitman [facility] 05/03/2020 10:01:32 D-dimer Feu, Qn, Ia, Blood : D-dimer 04/01/20:0.37 Efra Whitman [facility] 05/03/2020 09:54:26 Cbc W/ Diff : 04/01/20:WBC 7.6,RBC 4.68,HGB 14.8,HCT 41.8,PLT 251. Efra Whitman [facility] 05/03/2020 09:50:44 Cmp, Serum Or Plasma : 04/02/20:Na 139,K 3.4,Cl 102,CO2 32,GLU 99,BUN 11,Cr 0.6,Mg 2.1 [facility] 05/03/2020 09:54:26 Lipid Panel, Blood : 04/02/20: TC 167,TG 220,LDL 107,HDL 30. Efra Whitman [facility] 05/03/2020 09:54:26 Problems Name Problem SNOMED Code Status Onset Date Resolution Date Notes Provider Name and Address Organization Details Recorded Time Essential hypertension 76154754 Active 2020 [facility] 15:22:30 Cerebrovascula r accident 034259339 Active 2020 [facility] 15:22:39 Hypercholester olemia 82747840 Active 2020 [facility] 15:22:56 Depressive disorder 47603867 Active 2020 [facility] 15:23:04 Problem Notes None recorded. Procedures Surgical History Date Name Laterality Status Provider Name and Address Organization Details Recorded Time Hysterectomy completed [facility] 04/30/2020 15:24:35 Cholecystectomy completed [facility] 04/30/2020 15:24:43 Imaging Results Imaging Date Name [...] Name and Address Organization Details Recorded Time 42312 sulfobrom ophthalei n sodium medicatio n Not available Not available Not available 04/30/202035374 0 RxNorm Renae [facility], [place] [facility] 15:21:51 29280 tetracycl ine medicatio n Not available Not available Not available 04/30/2020 65248 RxNorm Renae [facility] [place] [facility] 15:22:03 Medications Name [...] Available Not Available Not Available Fluzone Quad [id number] (PF) 60 mcg (15 mcg x 4)/0.5 [...] Last Updated DateTime 165.1 cm 28.3 kg/m2 47602.7 g 84 /min 18 /min 94 % 94 % 97.2 [degF] 170 mm[Hg] 100 mm[Hg] Renae Pineda [facility] 15:31:15 Social History Question Answer Notes LastModified by Organizat ion Details LastModified Time Tobacco Smoking Status Current Every Day Smoker Renae wright [facility] 04/30/2020 15:23:42 Do You Have An Advance Directive? No [facility] Information not available 04/30/2020 What Is Your Level Of Alcohol Consumption? Occasional [facility] Information not available 04/30/2020 What Is Your Level Of Caffeine Consumption? None [facility] Information not available 04/30/2020 How Much Tobacco Do You Chew? None [facility] Information not available 04/30/2020 What Type [...] Father No current problems or disability Stroke [facility] Not available 04/18 15:23:31 Mother No [...] SNOMED-CT Code Diagnosis ICD10 Code Diagnosis Note 35378 MD Izzy Naqvi Office [address] [place] [address] 04/30/2020 14:29:44 04/30/2020 15:51:37 Atypical chest pain 395903858 R07.89 Treadmill Myoview Stress test, has high [place] Risk score. Has Known CAD, or CAD risk equivalent . To look for any ischemia. 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 Cessation highly advised Essential hypertension 67304031 I10 Hyperlipidemia 63417815 E78.5 Needs to keep LDL less than 100, and HDL more than 40.Current ly not on statin therapyWil l get fasting lipids for follow-up Peripheral vascular disease 532790478 I73.9 Will get arterial doppler, to evaluate severity of peripheral vascular disease Health Concerns Section Related Observation LastModified by Organization Detai ls LastModified Time None Recorded Concern Status LastModified by Organization Details LastModified Time None Recorded Advance Directives Directive N: Payers Encounter Date Sequence Insurance Name Policy Number Policy Brown Covered Member ID Brown Member ID Guarantor Name 04/30/2020 2 [place] [employer] Jeniffer Weller [id number] Jeniffer Weller 04/30/2020 1 [place] Jeniffer Weller [id number] Jeniffer Weller Notes Date Note Type Note Provider Name and Address Organization Details Recorded Time 04/30/2020 text/html 04/30/2020 CC: chest pain Patient is a 64-year-old female with a past medical history of HLD, HTN, COPD, and CKD who is seen in cardiac consultation with a chief complaint of chest pain and hospital follow-up. She was admitted to [facility] on 04/01/2020 with chest pain. Her cardiac [...] She denies ETOH abuse. Merrick Lin MD [address] [facility], [place], [address], [place] [facility] 04/30/2020 16:39:25 OBGyn Episode No OBEpisode recorded.
--- NOTE | 2024-08-09 06:15 | WPDHPUPDATE1 ---
History and Physical Update Update Date/Time: 08/09/24 06:15 History and Physical has been reviewed, including an updated exam of the patient. There are NO changes in the patient's condition. Risks, benefits, and alternatives have been discussed and questions answered. Patient agrees to proceed with procedure.
[2024-08-09] MEDS: LACTATED RINGERS 1,000 ML 30 ML IV CONT (10:45)
[2024-08-09 11:00] LABS: Anion Gap 6 mmol/L (4-12); Blood Urea Nitrogen 12 mg/dL (7-17); Calcium 9.3 mg/dL (8.4-10.2); Carbon Dioxide 31 mmol/L (22-30); Chloride 102 mmol/L (98-107); Estimated CRCL calculation 64 ml/min; Estimated Glomerular Filt Rate > 60; Glucose 97 mg/dL (65-110); Potassium 3.9 mmol/L (3.4-5.0); Sodium 139 mmol/L (137-145)
--- NOTE | 2024-08-09 11:19 | P.PNAN_ITS ---
Anes - Initial Pre Proc Eval Procedure: Operation Date: 08/09/24 13:00 Proposed Procedures p Cystoscopy, Right Ureteroscopy, Right Ureteral Stent Removal, Possible Laser Ablation of Soft Tissue, Possible Right Stent Replacement - Tacos Bowers MD Date/Time: 08/09/24 11:19 Surgeon: Tacos Bowers MD Pre Op Diagnosis: right uretral CA Patient Data Age: 68 Gender: F Height: 1.65 m Weight: 65 kg Last Vital Signs Temp 36.6 C 08/09/24 10:13 Pulse 71 08/09/24 10:13 Resp 18 08/09/24 10:13 BP 134/65 08/09/24 10:13 Pulse Ox 96 08/09/24 10:13 O2 Del Method Room Air 08/09/24 10:13 Allergies Allergy/AdvReac Type Severity Reaction Status Date / Time amitriptyline (From Elavil) Allergy Unknown Confusion Verified 07/30/24 15:14 Penicillins Allergy Unknown Rash Verified 07/30/24 15:14 Sulfa (Sulfonamide Allergy Unknown Hives Verified 07/30/24 15:14 Antibiotics) sulfanilamide Allergy Unknown Hives Verified 07/30/24 15:14 ciprofloxacin AdvReac Intermediate Shakiness Verified 07/30/24 15:14 codeine AdvReac Unknown N/V Verified 07/30/24 15:14 tetracycline AdvReac Unknown Nausea Verified 07/30/24 15:14 doxycycline AdvReac Nausea and Verified 07/30/24 15:14 Vomiting Home Medications ?Medication ?Instructions ?Recorded ?Confirmed ?Type aspirin 81 mg tablet,delayed 81 mg PO DAILY 04/05/19 08/09/24 History release (Aspir-) quetiapine 300 mg tablet (Seroquel) 300 mg PO QPM #90 tabs 01/07/20 08/09/24 Rx hydrochlorothiazide 25 mg tablet 25 mg PO DAILY #90 tabs 08/27/20 08/09/24 Rx atorvastatin 40 mg tablet (Lipitor) 40 mg PO HS 01/10/21 08/09/24 History bupropion HCl 150 mg 24 hr tablet, 150 mg PO HS 01/10/21 08/09/24 History extended release (Wellbutrin XL) isosorbide mononitrate 30 mg 90 mg PO QACLUNCH 01/10/21 08/09/24 History tablet,extended release 24 hr nitroglycerin 0.4 mg sublingual 0.4 mg sublingual ONCE 01/10/21 07/30/24 History tablet potassium chloride 10 mEq 10 meq PO DAILY 01/10/21 08/09/24 History tablet,extended release (K-Tab) venlafaxine 150 mg See Rx Instructions .Route .COMPLEX 03/02/22 08/09/24 History capsule,extended release 24 hr (Effexor XR) ranolazine 500 mg tablet,extended 500 mg PO Q12HR 30 days #60 tabs 03/04/22 08/09/24 Rx release,12 hr (Ranexa) cholecalciferol (vitamin D3) 125 125 mcg PO DAILY 11/12/22 08/09/24 History mcg (5,000 unit) tablet (Vitamin D3) hydrocodone 10 mg-acetaminophen 1 tablet PO PRN PRN pain 06/18/24 08/09/24 History 325 mg tablet oxybutynin chloride 10 mg 10 mg PO HS 06/18/24 08/09/24 History tablet,extended release 24 hr alprazolam 0.5 mg tablet 0.5 mg PO TID PRN anxiety 07/30/24 08/09/24 History carvedilol 12.5 mg tablet 12.5 mg PO BID 07/30/24 08/09/24 History Laboratory Tests 08/09/24 10:43 Sodium 139 mmol/L (137-145) Potassium 3.9 mmol/L (3.4-5.0) Chloride 102 mmol/L (98-107) Carbon Dioxide 31 H mmol/L (22-30) Anion Gap 6 mmol/L (4-12) BUN 12 mg/dL (7-17) Creatinine 0.67 L mg/dL (0.7-1.0) Estim Creat Clear Calc 64 ml/min Estimated GFR > 60 (59 - ) Glucose 97 mg/dL (65-110) Calcium 9.3 mg/dL (8.4-10.2) Patient hx anesthesia problems: none Family hx anesthesia problems: none Results Review: All pre-operative results and documents have been reviewed as part of the pre- operative evaluation. [facility] Past Medical History Medical History Emphysema lung Screening for colon cancer Screening for breast cancer Postmenopausal Hx of pancreatitis Depression Kidney stones Kidney disease Urinary frequency High cholesterol Pneumonia Vision abnormalities Weight gain Cholecystectomy planned Anxiety Surgical History Surgical History H/O excision of mass 11/22/22 Excision of 5 cm perianal cyst History of cholecystectomy Hx of tonsillectomy History of partial hysterectomy H/O colonoscopy History of esophagogastroduodenoscopy (EGD) History of laryngoscopy Family History Family History Sibling Patient's brother is in good health Dementia Mother Family history of coronary artery disease Acute myocardial infarction Father Patient's father is Acute myocardial infarction Cerebrovascular accident Unknown Heart disease Cerebrovascular accident Other Family history of mental disorder Social History Social History Smoking packs per day: 1 Smoking cigarettes per day: 20.0 Years smoked: 50 Smoking pack-years: 50.00 Smoking status: Current every day smoker Tobacco type: cigarettes Second hand tobacco smoke exposure: No Alcohol intake: never Substance use: current Substance use type: marijuana Other substance usage details: Daily Last use: 03/02/22 Lack of Transportation: No Lack of Food: Never True Current Housing: I Have Housing Concerned About Future Housing: No Difficulty Paying Gas/Electric Bills: No Difficulty Paying for Meds: No Currently Unemployed: No Education: Decline to Answer Difficulty w/ Childcare or Family Care: No Living arrangements: alone Spiritual care concerns: No Anes - Eval Final PreProcedure Day of Procedure 08/09/24 11:19 Patient weight: normal Heart: regular rate and rhythm Lungs: decreased breath sounds Airway: Mallampati scale class II Neurological: alert and oriented Last oral intake: >/= 8 hours ASA classification: IV Emergent: no Anesthetic plan: proceed Anesthesia type and monitoring: general LMA and standard monitoring Results Review: All pre-operative results and documents have been reviewed as part of the pre- operative evaluation. Informed Consent: The patient's anesthetic plan and its attendant risks and benefits were discussed with the patient/family/POA. Questions were solicited and answers provided to the satisfaction of the patient/family/POA.
--- NOTE | 2024-08-09 11:34 | P.HP_ITS ---
History of Present Illness History of Present Illness Consent: Risks, benefits, and alternatives have been discussed and questions answered. Patient agrees to proceed with procedure. Chief complaint: right uretral CA Narrative: Jeniffer Weller is a 68 year old female who has had a several month history of intermittent gross hematuria. Proximally 6 weeks ago cystoscopy with ureteroscopy revealed bleeding from her right collecting system and she was found to have a low-grade papillary neoplasm the proximal ureter and scant amount in the calices. This tissue was ablated in the stent is been left indwelling. She now presents for repeat evaluation right collecting ureter. Review of Systems Review of Systems: All systems reviewed & are unremarkable except as noted in HPI and below PMFSH Past Medical History Medical History Emphysema lung Screening for colon cancer Screening for breast cancer Postmenopausal Hx of pancreatitis Depression Kidney stones Kidney disease Urinary frequency High cholesterol Pneumonia Vision abnormalities Weight gain Cholecystectomy planned Anxiety Surgical History Surgical History H/O excision of mass 11/22/22 Excision of 5 cm perianal cyst History of cholecystectomy Hx of tonsillectomy History of partial hysterectomy H/O colonoscopy History of esophagogastroduodenoscopy (EGD) History of laryngoscopy Family History Family History Sibling Patient's brother is in good health Dementia Mother Family history of coronary artery disease Acute myocardial infarction Father Patient's father is Acute myocardial infarction Cerebrovascular accident Unknown Heart disease Cerebrovascular accident Other Family history of mental disorder Social History Social History Smoking packs per day: 1 Smoking cigarettes per day: 20.0 Years smoked: 50 Smoking pack-years: 50.00 Smoking status: Current every day smoker Tobacco type: cigarettes Second hand tobacco smoke exposure: No Alcohol intake: never Substance use: current Substance use type: marijuana Other substance usage details: Daily Last use: 03/02/22 Lack of Transportation: No Lack of Food: Never True Current Housing: I Have Housing Concerned About Future Housing: No Difficulty Paying Gas/Electric Bills: No Difficulty Paying for Meds: No Currently Unemployed: No Education: Decline to Answer Difficulty w/ Childcare or Family Care: No Living arrangements: alone Spiritual care concerns: No Meds Home Medications and Allergies Home Medications ?Medication ?Instructions ?Recorded ?Confirmed ?Type aspirin 81 mg tablet,delayed 81 mg PO DAILY 04/05/19 08/09/24 History release (Aspir-) quetiapine 300 mg tablet (Seroquel) 300 mg PO QPM #90 tabs 01/07/20 08/09/24 Rx hydrochlorothiazide 25 mg tablet 25 mg PO DAILY #90 tabs 08/27/20 08/09/24 Rx atorvastatin 40 mg tablet (Lipitor) 40 mg PO HS 01/10/21 08/09/24 History bupropion HCl 150 mg 24 hr tablet, 150 mg PO HS 01/10/21 08/09/24 History extended release (Wellbutrin XL) isosorbide mononitrate 30 mg 90 mg PO QACLUNCH 01/10/21 08/09/24 History tablet,extended release 24 hr nitroglycerin 0.4 mg sublingual 0.4 mg sublingual ONCE 01/10/21 07/30/24 History tablet potassium chloride 10 mEq 10 meq PO DAILY 01/10/21 08/09/24 History tablet,extended release (K-Tab) venlafaxine 150 mg See Rx Instructions .Route .COMPLEX 03/02/22 08/09/24 History capsule,extended release 24 hr (Effexor XR) ranolazine 500 mg tablet,extended 500 mg PO Q12HR 30 days #60 tabs 03/04/22 08/09/24 Rx release,12 hr (Ranexa) cholecalciferol (vitamin D3) 125 125 mcg PO DAILY 11/12/22 08/09/24 History mcg (5,000 unit) tablet (Vitamin D3) hydrocodone 10 mg-acetaminophen 1 tablet PO PRN PRN pain 06/18/24 08/09/24 History 325 mg tablet oxybutynin chloride 10 mg 10 mg PO HS 06/18/24 08/09/24 History tablet,extended release 24 hr alprazolam 0.5 mg tablet 0.5 mg PO TID PRN anxiety 07/30/24 08/09/24 History carvedilol 12.5 mg tablet 12.5 mg PO BID 07/30/24 08/09/24 History Allergies Allergy/AdvReac Type Severity Reaction Status Date / Time amitriptyline (From Elavil) Allergy Unknown Confusion Verified 07/30/24 15:14 Penicillins Allergy Unknown Rash Verified 07/30/24 15:14 Sulfa (Sulfonamide Allergy Unknown Hives Verified 07/30/24 15:14 Antibiotics) sulfanilamide Allergy Unknown Hives Verified 07/30/24 15:14 ciprofloxacin AdvReac Intermediate Shakiness Verified 07/30/24 15:14 codeine AdvReac Unknown N/V Verified 07/30/24 15:14 tetracycline AdvReac Unknown Nausea Verified 07/30/24 15:14 doxycycline AdvReac Nausea and Verified 07/30/24 15:14 Vomiting Vital Signs Vital Signs - 24 hr 08/09/24 10:13 Temperature 97.8 F Pulse Rate 71 Respiratory Rate 18 Blood Pressure 134/65 Pulse Oximetry 96 Oxygen Delivery Room Air Exam Const: General: no acute distress Resp: Effort & Inspection: normal respiratory effort GI: Inspection: non-distended GI Palp: No abdominal tenderness and No Guarding due to palpation present (GI) Auscultation: normal bowel sounds Assessment and Plan Assessment and plan (1) 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
[2024-08-09] MEDS: ceFAZolin 2 GM/D5W 50 ML 2 GM/50 ML BAG IVPB (12:05)
[2024-08-09] MEDS: LIDOCAINE 2% GEL UROJET 10 ML PKG MUCOUS MEM (12:40)
--- NOTE | 2024-08-09 14:25 | SUR.PHASEII ---
1410: patient ready for DC. waiting on ride.
--- NOTE | 2024-08-09 14:37 | P.OP_ITS ---
Procedure Note - Detailed Date of Procedure 08/09/24 Pre-op Diagnosis right uretral CA Post-op Diagnosis Same Procedure Performed Cystoscopy, right retrograde pyelography, right ureteroscopy with biopsy and laser ablation Surgeon Tacos Bowers MD Anesthesia General Findings Minimal, if any, recurrent urothelial neoplasm in the right collecting system or ureter Description of Procedure Patient is brought to the operative suite where she is prepped and draped in routine sterile fashion while in dorsal lithotomy position after the uneventful induction of a general LMA anesthetic. Cystoscopy was undertaken with a 19 F rigid cystoscope. Bladder neck and urethra endoscopically normal. She has an indwelling right ureteral stent with an otherwise normal bladder. There was no intravesical neoplasm or obvious abnormalities in her urothelium. A 0.0 thrive 5 in glidewire was advanced in the right renal pelvis and a [place] catheter was used to obtain a cytology from the right renal pelvis. Urine cytology had been obtained with placement of the cystoscope. Retrograde pyelography was obtained to ensure visualization/inspection of all calices. This is undertaken with a 7.5 F digital flexible ureteral scope. There is perhaps 1 small area of papill aracelis change in region of the ureteropelvic junction but this could just be some necrotic tissue. There was no obvious gretchen neoplasm. I obtained biopsies at that site and cauterized the base with a 200 micron Socrates laser fiber. Repeat retrograde pyelography was undertaken the to ensure no extravasation and a 6 F variable length stent is appropriately positioned with the proximal coil in the renal pelvis distal coil in the bladder. Patient tolerated this procedure well was taken recovery room good condition. Drains No Packing No Pathology Yes Complications No immediate complications Condition Stable Disposition PACU
== END 2024-08-09 14:49 | disposition home or self-care (01) ==
PROVIDERS: Anesthesiology; PCP Student in an Organized Health Care Education/Training Program; Visit Provider Urology
PROC: (CPT 52352; principal; 2024-08-09 13:00)
DX: C66.1 Malignant neoplasm of right ureter (principal); J43.9 Emphysema, unspecified; E78.00 Pure hypercholesterolemia, unspecified; F41.9 Anxiety disorder, unspecified; F32.A Depression, unspecified; N28.9 Disorder of kidney and ureter, unspecified; R35.0 Frequency of micturition; F17.210 Nicotine dependence, cigarettes, uncomplicated; F12.90 Cannabis use, unspecified, uncomplicated; Z79.82 Long term (current) use of aspirin; Z79.891 Long term (current) use of opiate analgesic; Z98.890 Other specified postprocedural states; Z90.49 Acquired absence of other specified parts of digestive tract; Z96.0 Presence of urogenital implants; Z87.442 Personal history of urinary calculi; Z87.19 Personal history of other diseases of the digestive system; Z82.49 Family history of ischemic heart disease and other diseases of the circulatory system
CPT/HCPCS: 52354; 36415; 74420; 80048; 88108; 88305; 88342; C1769; C2617; J0690; J1100; J2003; J2250; J2405; J2704; J3010; J7120; Q9966

== ENCOUNTER 2024-08-14 07:26 | Emergency (ER) | payer MEDICARE, MEDICAID, SELFPAY ==
[2024-08-14] VITALS (7 sets, daily range): BP systolic 102–139; BP diastolic 55–82; PULSE 76–86; RESP 12–20; TEMP 37.4; O2SAT 95–99
--- NOTE | ~2024-08-14 | XR_ITS ---
XR abdomen/kub 1V Ordering provider: Meliton Sierra History: . sten eval . Comparison: None. FINDINGS: BOWEL: Nonobstructive bowel gas pattern. ORGANOMEGALY: None. SIGNIFICANT PATHOLOGIC CALCIFICATIONS: Right double-J stent. Multiple stones in the left kidney. High ly suggestive stone in the right kidney. Gas is overlapping both kidneys. OTHER: No free air is seen under the diaphragm. Degenerative changes of the spine. IMPRESSION: NO ACUTE ABDOMINAL FINDINGS. Left kidney stones. Possible stone in the right kidney. Right double-J stent. Reviewed, dictated and finalized at location A.
[2024-08-14 07:43] LABS: Hematocrit 34.9 % (37.0-47.0); Hemoglobin 12.2 g/dL (12.0-15.0); Mean Corpuscular Hemoglobin 30.8 pg (26-34); Mean Corpuscular Volume 88.1 fl (80-100); Mean Platelet Volume 8.9 fl (7.4-10.4); Platelet Count Result 239 k/mm3 (150-375); Red Blood Count 3.96 M/mm3 (4.2-5.4); Red Cell Distribution Width 13.3 % (11.5-14.5); White Blood Count 7.3 K/mm3 (4.5-10.0)
[2024-08-14 07:56] LABS: Alanine Aminotransferase 20 U/L (6-35); Alkaline Phosphatase 74 U/L (38-126); Anion Gap 5 mmol/L (4-12); Aspartate Amino Transferase 28 U/L (14-36); Bilirubin,Total 0.8 mg/dL (0.2-1.3); Blood Urea Nitrogen 14 mg/dL (7-17); Calcium 8.9 mg/dL (8.4-10.2); Carbon Dioxide 29 mmol/L (22-30); Chloride 99 mmol/L (98-107); Estimated CRCL calculation 76 ml/min; Estimated Glomerular Filt Rate > 60; Glucose 110 mg/dL (65-110); Lipase 37 U/L (23-300); Potassium 3.6 mmol/L (3.4-5.0); Sodium 133 mmol/L (137-145)
--- NOTE | 2024-08-14 07:56 | PC.NURSE ---
Pt unable to urinate at this time
[2024-08-14 08:25] LABS: Atypical Lymphocytes Present; Band Neutrophils Percent 3 % (0-6); Eosinophils Absolute Manual 0.07 K/mm3 (0.02-0.50); Eosinophils Percent Manual 1 % (0-4); Lymphocytes Absolute Manual 1.53 K/mm3 (1.1-4.5); Lymphocytes Percent Manual 21 % (18-44); Monocytes Absolute Manual 0.65 K/mm3 (0.1-0.90); Monocytes Percent Manual 9 % (3-9); Neutrophils Absolute Manual 5.03 K/mm3 (1.7-7.2); Neutrophils Percent Manual 66 % (46-73); Platelet Estimate Adequate (Adequate); Schistocytes None Seen; Total Cells Counted 100
--- OUTSIDE RECORDS SUMMARY | 2024-08-14 08:31 | XMS_ITS | Clinical Summary ---
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 Gender Identity Not on file Sexual Orientation [...] Zoster Vaccine Completed 04/06/2021, 01/27/2021 Insurance IDPA [facility] MEDICARE ADVANTAGE IDPA [facility] MEDICARE ADVANTAGE [facility] MEDICARE ADVANTAGE [facility] Advance Directives For more information, please contact: [phone] * Full Code (Latest Code Status on File) Date Activated Date Inactivated Comments 02/09/2022 9:51 PM 02/12/2022 5:52 PM Care Teams Tax Examiner Relationship Specialty Start Date End Date Jimmy Doyle DO [address] [place] [address] PCP - General Family Medicine 02/12/22 Derrell Varma MD [facility] [address] [address] Surgeon Surgery 02/12/22
--- OUTSIDE RECORDS SUMMARY | 2024-08-14 08:31 | XMS_ITS | Encounter Summary ---
Author Organization [facility] Address [address] [place] [address] Care Team Providers Care Auto Seat Cover Installer Name Role Phone Unavailable Primary Care Provider Unavailabl e Encounter Details Date Type Department Care Team (Late st Contact Info) Description 01/28/2022 Lab Requisition [facility] [address] [place] [address] Kathy Mason MD [address] [place], [place] [id number] Illness, unspecified Social History Tobacco Use Types Packs/Day Years Used Date Smoking Tobacco: Never Assessed Comments Unknown Sex and Gender Information Value Date Recorded Sex Assigned at Not on file 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 01/28/2022 12:22 PM CDT [facility] Clinical History HEMATURIA 01/28/2022 12:22 PM CDT [facility] Materials Received One thin prep slide received from [facility] [id number]. All material will be returned. 01/28/2022 12:22 PM CDT [facility] Disclaimer The performance characteristics of all immunohistochemical and indirect immunofluorescence stains (if any) cited in this report were determined by the Histopathology Laboratory of [facility]. Some of these tests were developed by [...] (teaching) pathologist. 01/28/2022 12:22 PM CDT [facility] Case Report Surgical Pathology Report Case: [id number] Authorizing Provider: Kathy Mason MD Collected: 01/28/2022 10:46 AM Ordering Location: [facility] Received: 01/28/2022 10:51 AM Pathologist: Flaquito Bruno MD Specimen: Slide Consultation 01/28/2022 12:22 PM CDT [facility] Embedded Images 01/28/2022 12:22 PM CDT [facility] Pathology/Cytolo gy SURGICAL PATHOLOGY CONSULTATION AND REPORT ON REFERRED SLIDES PREPARED ELSEWHERE / Unknown 01/28/2022 10:46 AM CDT 01/28/2022 10:51 AM CDT Kathy Mason MD LAB - PATHOLOGY/CYTOLOGY ORDERAB LES Final Result [facility] [address] [place] [address], [facility] [phone] documented in this encounter Visit Diagnoses Diagnosis Illness, unspecified documented in this encounter
--- OUTSIDE RECORDS SUMMARY | 2024-08-14 08:31 | XMS_ITS | Referral Summary ---
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 Gender Identity Not on file Sexual Orientation [...] of Treatment Not on file Insurance IDPA [facility] MEDICARE ADVANTAGE [place] [facility] MEDICARE ADVANTAGE [facility] MEDIC[facility] Address: [address] [address] [place] [address] IDPA Advance Directives For more information, please contact: [phone] * Full Code (Latest Code Status on File) Date Activated Date Inactivated Comments 02/09/2022 9:51 PM 02/12/2022 5:52 PM Care Teams Order Picker Relationship Specialty Start Date End Date Jimmy Doyle DO [address] [place] [address] PCP - General Family Medicine 02/12/22 Derrell Varma MD [address] [facility] [address] [address] Surgeon Surgery 02/12/22
--- OUTSIDE RECORDS SUMMARY | 2024-08-14 08:31 | XMS_ITS | Encounter Summary ---
Author Organization [facility] Address [facility] [place] [address] Care Team Providers Care Landscape Nurseryman Name Role Phone New Referring, Provider Primary Care Provider Un available Jimmy Doyle DO Primary Care Provider + Encounter Details Date Type Department Care Team (Latest Contact Info) Description 12/12/2017 Abstract [facility] Farhana Marina MD Social History Tobacco Use Types Packs/Day Years Used Date Smoking Tobacco: Never Assessed Comments Unknown Sex and Gender Information Value Date Recorded Sex Assigned at Female 05/03/2024 9:57 AM COUNTY NURSE Legal Sex Female 4:45 PM CDT Gender Identity Female 05/03/2024 9:57 AM COUNTY NURSE Sexual Orientation Not on file documented as of this encounter Plan of Treatment Upcoming Encounters Date Type Department Care Team (Late st Contact Info) Description 08/31/2024 12:00 PM CDT Office Visit [facility] [phone] Abhi Aguilar MD [address] [facility] [address] [place] [phone] 11/05/2024 10:20 AM CDT Office Visit [facility] Family & Internal Medicine - [address] [phone] Jimmy Doyle DO [address] [place] [address] documented as of this encounter Visit Diagnoses Not on filedocumented in this encounter Additional Health Concerns Infection Onset Date Last Indicated Resolved Time COVID-19 Rule Out 01/13/2022 01/13/2022 01/13/2022 9:32 AM CDT COVID-19 Rule Out 01/13/2022 01/13/2022 01/13/2022 9:59 AM CDT COVID-19 Rule Out 01/27/2023 01/27/2023 01/27/2023 11:28 AM CDT documented as of this encounter Care Teams Landscape Nurseryman Relationship Specialty Start Date End Date New Referring, Provider PCP - General UNKNOWN PHYSICIAN SPECIALTY 01/25/18 08/18/20 Jimmy Doyle DO [address] [place] [address] PCP - General FAMILY PRACTICE 08/19/20 documented as of this encounter
--- OUTSIDE RECORDS SUMMARY | 2024-08-14 08:31 | XMS_ITS | Encounter Summary ---
Author Organization [facility] Address [facility] [place] [address] Care Team Providers Care Cinder Crew Worker Name Role Phone Jimmy Doyle Primary Care Provider + Encounter Details Date Type Department Care Team (Late st Contact Info) Description 01/11/2022 Abstract [facility] [address] Doni Moore MA Social History Tobacco Use Types Packs/Day Years Used Date Smoking Tobacco: Every Day Cigarettes 1 55 Started: 08/19/1969 Smokeless Tobacco: Never Comments:trying to quit. 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 recreational counselor Alcohol Use Standard Drinks/Week Comments Never [...] Sex Assigned at Female 05/03/2024 9:57 AM PREFORM PLATE MAKER Legal Sex Female 4:45 PM CDT Gender Identity Female 05/03/2024 9:57 AM PREFORM PLATE MAKER Sexual Orientation Not on file COVID-19 [...] Description 08/31/2024 12:00 PM CDT Office Visit [facility]-[address] [phone] Abhi Aguilar MD 3 [facility] [address] [facility] [place] [phone] 11/05/2024 10:20 AM CDT [facility] Family & Internal Medicine - [address] [phone] Jimmy Doyle, [address] [place] [phone] documented as of this encounter Goals Goal Patient Goal Type Associated Problems Recent Progress Patient-Stated? Author Patient will return to prior living situation and remain independent in ADLs upon discharge from [facility] Daysi Nayak RN documented as of this [...] Total Score: 8 05/13/19 22 10:36 AM PREFORM PLATE MAKER documented as of this encounter Care Teams Cinder Crew Worker Relationship Specialty Start Date End Date Jimmy Doyle DO [address] [place] [id number] PCP - General FAMILY PRACTICE 08/19/20 documented as of this encounter
--- OUTSIDE RECORDS SUMMARY | 2024-08-14 08:31 | XMS_ITS | Encounter Summary ---
Author Organization [facility] Address [facility] [place] [address] Care Team Providers Care Processing Tech Name Role Phone Jimmy Doyle Primary Care Provider + Encounter Details Date Type Department Care Team (Latest Contact Info) Description 08/13/2024 Travel Social History Tobacco Use Types Packs/Day Years Used Date Smoking Tobacco: Every Day Cigarettes 1 55 Started: [birth year]/19/1969 Smokeless Tobacco: Never Comments:trying to quit. 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 housing counselor Alcohol Use Standard Drinks/Week Comments Never [...] Sex Assigned at Female 05/03/2024 9:57 AM FEED MILL LAB TECHNICIAN Legal Sex Female 4:45 PM CDT Gender Identity Female 05/03/2024 9:57 AM FEED MILL LAB TECHNICIAN Sexual Orientation Not on file documented as [...] Description 08/31/2024 12:00 PM CDT Office Visit [facility] [phone] Abhi Aguilar MD [address] [place] [address] [place] [phone] 11/05/2024 10:20 AM CDT Office Visit [facility] Family & Internal Medicine - [address] [phone] Jimmy Doyle DO [address] [place] [address] documented as of this encounter Goals Goal [...] Depression Total Score: 10 025 9:55 AM FEED MILL LAB TECHNICIAN documented as of this encounter Care Teams Processing Tech Relationship Specialty Start Date End Date Jimmy Doyle DO [address] [place] [phone] PCP - General FAMILY PRACTICE 08/19/20 documented as of this encounter
--- OUTSIDE RECORDS SUMMARY | 2024-08-14 08:31 | XMS_ITS | Encounter Summary ---
Author Organization [facility] Address [facility] [place] [address] Care Team Providers Care Cooling Pan Tender Name Role Phone Jimmy Doyle DO Primary Care Provider + Encounter Details Date Type Department Care Team (Late st Contact Info) Description 06/23/2022 Prep for Procedure [facility], [address] [place], [place] [phone] Flaquito Valera MD Three [facility]. [address] [place] [address] Social History Tobacco Use Types [...] Sex Assigned at Female 05/03/2024 9:57 AM GEOPOLITICS TEACHER Legal Sex Female 4:45 PM CDT Gender Identity Female 05/03/2024 9:57 AM GEOPOLITICS TEACHER Sexual Orientation Not on file COVID-19 Exposure Response Date Recorded In the last 10 days, have yo u been in contact with someone who was confirmed or suspected to have Coronavirus/COVID-19? No / Unsure 06/24/2022 12:41 PM GEOPOLITICS TEACHER documented as of this encounter Functional Status [...] things Not at all 06/24/2022 1:19 PM GEOPOLITICS TEACHER Adia Mckenna MA Active Feeling down, depressed, or hopeless Nearly every day 06/24/2022 1:19 PM GEOPOLITICS TEACHER Adia Mckenna MA Active Patient Health Questionnaire-2 Score 3 06/24/2022 1:19 PM GEOPOLITICS TEACHER Adia Mckenna MA Active documented as of [...] Description 08/31/2024 12:00 PM CDT Office Visit [facility] [address] [phone] Abhi Aguilar MD 3 [facility] [address] [place] [phone] 11/05/2024 10:20 AM CDT Office Visit [facility] Family & Internal Medicine - [place] [address] [place] [phone] Jimmy Doyle DO [address] [place] [address] documented as of this encounter Goals Goal Patient Goal Type Associated Problems Recent Progress Patient-Stated? Author Patient will return to prior living situation and remain independent in ADLs upon discharge from hospital General Daysi Hastings RN documented as of this encounter Visit Diagnoses Not on filedocumented in this encounter Additional Health Concerns Infection Onset Date Last Indicated Resolved Time COVID-19 Rule Out 01/27/2023 01/27/2023 01/27/2023 11:28 AM CDT Assessment Noted Time PHQ-9 Depression Total Score: 8 05/13/19 22 10:36 AM GEOPOLITICS TEACHER documented as of this encounter Care Teams Cooling Pan Tender Relationship Specialty Start Date End Date Jimmy Doyle DO [address] [place] [phone] PCP - General FAMILY PRACTICE 08/19/20 documented as of this encounter
--- OUTSIDE RECORDS SUMMARY | 2024-08-14 08:31 | XMS_ITS | Encounter Summary ---
Author Organization [facility] Address [address] [place] [address] Care Team Providers Care Human Services Manager Name Role Phone Jimmy Doyle DO Primary Care Provider + Encounter Details Date Type Department Care Team (Late st Contact Info) Description 08/13/2024 Results Follow-Up [facility] Family & Internal Medicine [facility] [address] [place] [phone] Jimmy Doyle DO [address] [place] [address] A1C (BACK OFFICE) Social History Tobacco Use Types Packs/Day Years Used Date Smoking Tobacco: Every Day Cigarettes 1 55 Started: [birth year]/19/1967 Smokeless Tobacco: Never Comments:trying to quit. 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 legal counsel Alcohol Use Standard Drinks/Week Comments Never [...] Sex Assigned at Female 05/03/2024 9:57 AM CONCRETE TESTER Legal Sex Female 4:45 PM CDT Gender Identity Female 05/03/2024 9:57 AM CONCRETE TESTER Sexual Orientation Not on file documented [...] Description 08/31/2024 12:00 PM CDT Office Visit [facility] [phone] Abhi Aguilar MD 3 [facility] [address] [place] [phone] 11/05/2024 10:20 AM CDT Office Visit [facility] Family & Internal Medicine - [address] [phone] Jimmy Doyle DO [address] [place] [phone] documented as of this encounter Goals Goal Patient Goal Type Associated Problems Recent Progress Patient-Stated? Author Patient will return to prior living situation and remain independent in ADLs upon discharge from hospital General Daysi Nayak RN documented as of this encounter Visit Diagnoses Not on filedocumented in this encounter Additional Health Concerns Assessment Noted Time PHQ-9 Depression Total Score: 10 025 9:55 AM CONCRETE TESTER documented as of this encounter Care Teams Human Services Manager Relationship Specialty Start Date End Date Jimmy Doyle DO [address] [place] [phone] PCP - General FAMILY PRACTICE 08/19/20 documented as of this encounter
--- OUTSIDE RECORDS SUMMARY | 2024-08-14 08:31 | XMS_ITS | Clinical Summary ---
Author Organization [facility] Address [address] [place] [address] Care Team Providers Care Advanced Manufacturing Vice President Name Role Phone Unavailable Primary Care Provider Unavailabl e Source Comments [facility],non-owned Affiliates and Associated Physician Practices is amultiple site organization consisting of ambulatory clinics and hospital sitesin [place], [place], [place] and [place]. This disclosure is being madepursuant to the Care Everywhere program and may not contain all information available regarding this patient. 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 Gender Identity Not on file Sexual [...] patient's age to complete this topic Insurance [facility] MANAGED MEDICARE [facility] MED[facility] [place] SELF PAY NO INSURANCE Member Subscriber Plan / Payer (Ef fective for All Dates) Name:Jeniffer Vargas Member ID:Not on file Relation to Subscriber:Not on file Name:JENIFFER VARGAS Subscriber ID:Not on file (Home) Address: [address] [place] [phone] Payer ID:Not on file Group ID:Not on file Type:Self Pay Address: [place], [place] [facility] MANAGED MEDICARE ADV
--- OUTSIDE RECORDS SUMMARY | 2024-08-14 08:31 | XMS_ITS | Clinical Summary ---
Author Organization [facility] Address [facility] [place] [address] Care Team Providers Care Tail Puller Name Role Phone Starla Arshad Vladimir QURESHI [...] BEDTIME 90 tablet 04/24/19 25 2024 Discontinued cefdinir (OMNICEF) 300 MG Cap capsuleIndication s:Dysuria [...] Noted Date Diagnosed Date Ureteral cancer, right ([facility]) 025 Bipolar affective disorder, currently depressed, mild ([facility]) 05/03/2023 Sedative, hypnotic or anxiol ytic dependence, uncomplicated ([facility]) 03/25/2022 PAD (peripheral artery disease) 02/19/2022 Right iliac artery stenosis 02/19/2022 Allergies 07/31/2021 Right lower quadrant abdominal pain 07/31/2021 Tobacco abuse 07/31/2021 Radiculopathy, lumbar region 12/29/2020 Other intervertebral disc degeneration, lumbar r egion 12/29/2020 Spondylolisthesis of lumbar region 12/29/2020 Coronary artery disease of n ative artery of [place] heart with stable angina pectoris 10/01/2020 Degenerative [...] 08/18/2020 Nausea 08/18/2020 Nicotine dependence 08/18/2020 On oysterman drug therapy 08/18/2020 Polyarthritis 08/18/2020 Postmenopausal status 08/18/2020 Primary osteoarthritis of left knee 08/18/2020 Triggering of digit 08/18/2020 Vitamin D deficiency 08/18/2020 Cerebrovascular accident ([facility]) 04/30 Body mass index (BMI) of 28.0 to 28.9 in adult 0 10/12/2018 Low back pain 10/12/2018 Muscle spasm 02/03/2018 Lumbar foraminal stenosis 01/17/2018 Bulging lumbar disc 01/16/2018 Hypertension 01/16/2018 GERD (gastroesophageal reflux disease) 8 Lumbar stenosis 01/16/2018 Osteoarthrosis 01/16/2018 Depressive disorder 01/16/2018 Chronic obstructive pulmonary disease ([facility]) 01/16/2018 Hyperlipidemia 01/16/2018 Resolved Problems Problem Noted Date Diagnosed Date Resolved Date Screening for breast cancer 08/18/2020 08/25/2020 Infiltrate of lung present on chest x-ray 08/18/2020 05/03/2024 Encounter for preventive health examination 02/13/2014 08/25/2020 Encounters Date Type Department Care Team Description 08/13/2024 2:00 PM CDT Allied Health/Nurse Visit [address] [address] Starla Arshad, DO Allied Health Visit (A1C) 08/13/2024 Results Follow-Up [address] [address] Starla Arshad, DO A1C (BACK OFFICE) 08/13/2024 Travel 08/02/2024 Results Follow-Up [address] [address] Starla Arshad, DO VITAMIN D, 25 OH, LIPID PANEL, TSH W/REFLEX, Additional followed-up results: 2 08/01/2024 8:20 AM CDT Office Visit [address] [address] Starla Arshad, DO Bipolar Disorder; Spinal Stenosis ; Emphysema; Coronary Artery Disease; Hypertension 08/01/2024 Scan Padlet INFO SRVCS Scanned, [facility] Lab (SCAN); CT (SCAN) 08/01/[address] [address] Starla Arshad, DO Referral 08/01/2024 Telephone [facility] Family Internal [address] [address] Starla Arshad, DO Information 08/01/2024 Travel 07/31/[address] [address] Starla Arshad, DO Lab Order 07/30/[address] [address] Starla Arshad, DO Medication Request 07/11/[address] [address] Starla Arshad, DO Medication Request 06/28/2024 Scan Padlet INFO SRVCS Scanned, [facility] Procedure (SCAN); Image (SCAN); Pathology (SCAN) 06/25/2024 Telephone [facility] Internal [address] [phone] Starla Arshad, DO Refill Request 06/22/[address] [phone] Starla Arshad, DO Refill Request; Advice 06/20/2024 Telephone [facility]Jose Martin'Valdemar [address] [address] Abhi Aguilar MD Surgical Clearance 06/14/2024 1:40 PM [employer] SPECIALIST Allied Health/Nurse Visit [address] [address] Starla Arshad, DO UTI 06/14/2024 - 06/14/2024 11:59 PM [employer]IST Hospital Encounter [facility] [address] [place] [address] Starla Arshad, DO Discharge Disposition: Home or Self Care (Routine Discharge) 06/14/2024 Travel 06/12/[address] [address] Starla Arshad, DO Refill Request 06/03/2024 Scan [facility] INFO SRVCS Scanned, [facility] (SCAN) 05/23/[address] [address] Starla Arshad, DO Medication Request 05/22/2024 3:56 PM [employer] F[employer] SPECIALIST - 05/22/2024 9:24 PM [facility] Emergency [facility] [place] [address] Kathleen Lilly MD Urinary Symptoms; Dizziness Discharge Disposition: Home or Self Care (Routine Discharge) 05/22/2024 Travel 05/17/[address] [phone] Starla Arshad, DO Information 05/16/2024 Scan [facility] INFO SRVCS Scanned, [facility] (SCAN) 05/16/2024 Scan [facility] INFO SRVCS Scanned, [facility] (SCAN); Image (SCAN); CT (SCAN) 05/16/[address] [address] Starla Arshad, DO Advice from Last 3 Months Immunizations Immunization Administration [...] Given: Yes Comments:trying to quit. provider to job placement counselor Alcohol Use Standard [...] Assigned at Female 05/03/2024 9:57 AM [employer]IST Legal Sex Female 4:45 PM CDT Gender Identity Female 05/03/2024 9:57 AM [employer] FLOORING SPECIALIST Sexual Orientation Not on file Last Filed Vital Signs Vital Sign Reading Time Taken Comments Blood Pressure 128/66 08/01/2024 8:17 AM CDT Pulse 85 08/01/2024 8:17 AM CDT Temperature 36.6 C (97.8 F) 08/01/2024 8:17 AM CDT Respiratory Rate 16 05/22/2024 8:59 PM [employer] F[employer]ORING SPECIALIST Oxygen Saturation 94% 08/01/2024 8:17 AM CDT Inhaled Oxygen Concentration - - Weight 66 kg (145 lb 9.6 oz) 08/01/2024 8:17 AM CDT Height 165.1 cm (5' 5 ) 08/01/2024 8:17 AM CDT Body Mass Index 24.23 08/01/2024 8:17 AM CDT Plan of Treatment Upcoming Encounters Date Type Department Care Team (Late st Contact Info) Description 08/31/2024 12:00 PM CDT Office Visit [facility] [phone] Abhi Aguilar MD [address] [facility] [address] [place] [phone] 11/05/2024 10:20 AM CDT Office Visit [facility] Family & Internal Medicine - [address] [phone] Starla Arshad, [address] [place] [address] [phone] Health Maintenance Due Date Last Done Comments [...] 12/31/2022, 01/12/2020, Additional history exists PHQ-2 (Physician [place]) Completed 05/03/2024 Meningococcal B Vaccine Aged Out [...] independent in ADLs upon discharge from [facility] Daysi Nayak RN Procedures Procedure Name Priority Date/Time Associated Diagnosis Comments COLLECT.CAPILLARY (FNGR,HEEL,EAR) Routine 08/13/2024 2:04 PM CDT Elevated fasting glucose HEMOGLOBIN, GLYCOSYLATED Routine 08/13/2024 Elevated fasting glucose CBC W/DIFF AUTOMATED Routine 08/01/2024 9:26 AM [...] URINE BACTERIA CULTURE Routine 06/14/2024 10:27 AM [employer] FLOORING SPECIALIST Dysuria URINALYSIS AUTO DIP Routine 06/14/2024 Dysuria OUTSIDE LAB (SCAN ORDER) 06/03/2024 OUTSIDE LAB (SCAN ORDER) 06/03/2024 OUTSIDE LAB (SCAN ORDER) 06/03/2024 ECG 12-LEAD Routine 05/22/2024 4:19 PM [employer] FLOORING SPECIALIST TROPONIN, QUANT STAT 05/22/2024 4:08 PM [employer] FLOORING SPECIALIST COMPREHENSIVE METABOLIC PANEL STAT 05/22/2024 4:08 PM [employer] FLOORING SPECIALIST CBC W/DIFF AUTOMATED STAT 05/22/2024 4:08 PM [employer] FLOORING SPECIALIST URINE BACTERIA CULTURE STAT 05/22/2024 3:19 PM HARDWOOD FLOORING SPECIALIST HC URINALYSIS AUTO W/O MICRO STAT 05/22/2024 3:19 PM H[employer]WO[employer] FLOORING SPECIALIST XR CHEST PORTABLE STAT 05/22/2024 3:0 [address] GENERIC 05/16/2024 CT GENERIC 05/16/2024 OUTSIDE LAB COVID-19 (SCAN ORDER) Routine 05/16/2024 OUTSIDE LAB (SCAN ORDER) 05/16/2024 OUTSIDE LAB (SCAN ORDER) 05/16/2024 OUTSIDE LAB (SCAN ORDER) 05/16/2024 OUTSIDE LAB (SCAN ORDER) 05/16/2024 OUTSIDE LAB (SCAN ORDER) 05/16/2024 OUTSIDE LAB (SCAN ORDER) 05/16/2024 OUTSIDE LAB (SCAN ORDER) 05/16/2024 IMAGE GENERIC 05/16/2024 IMAGE GENERIC 05/16/2024 HEPATITIS C ANTIBODY Routine 04/05/2023 8:24 AM [employer] F[employer]ORING SPECIALIST Primary hypertension Screening for lipid disorders Screening for endocrine, metabolic and immunity disorder Annual physical exam Need for hepatitis C screening test MG DIAG W WILMER BILAT DIGI Routine 09/09/2020 12:14 PM CDT Breast lump on left side at 10 o'clock position from Last 3 Months or Most Recently Relevant to Health Maintenance Results * A1C (BACK OFFICE) (08/13/2024) HGB A1C 5.6 % [facility] 08/13/2024 Starla Arshad DO LABORATORY Final Re sult Performing Organization Address City/[facility]/ZIP Co de Phone Number [facility] [address] [place] [address], [place] * TSH W/REFLEX (08/01/2024 9:26 AM CDT) Pathologist [facility] TSH 1.455 0.358 - 3.740 uIU/ML 08/01/2024 3:42 PM CDT [facility] 08/01/2024 9:26 AM CDT [facility]ATORY Final Re sult Performing Organization Address [facility]/ZIP Co de Phone Number [facility] [address] [place] [address], [place] [phone] * (ABNORMAL) COMPREHENSIVE METABOLIC PANEL (08/01/2024 9:26 AM CDT) Only the most recent of2 resultswithin the time period is included. Pathologist [facility] SODIUM S/P/B 141 136 - 145 MMOL/L 08/01/2024 3:42 PM CDT [facility] POTASSIUM S/P/B 3.7 3.5 - 5.1 MMOL/L 08/01/2024 3:42 PM CDT [facility] CHLORIDE S/P/B 102 98 - 107 MMOL/L 08/01/2024 3:42 PM CDT [facility] CO2 33.1(H) 21 - 32 MMOL/L 08/01/2024 3:45 PM CDT [facility] Comment:RESULTS CONFIRMED-TE ST REPEATED GLUCOSE 104(H) 70 - 99 MG/DL 08/01/2024 3:42 PM T [facility] BUN 11 7 - 18 MG/DL 08/01/2024 3:42 PM T [facility] CREATININE S/P/B 0.70 0.55 - 1.02 MG/DL 08/01/2024 3:42 PM T [facility] CALCIUM S/P/B 9.4 8.4 - 10.5 MG/DL 08/01/2024 3:42 PM T [facility] BILIRUBIN TOTAL S/P/B 0.6 0.2 - 1.0 MG/DL 08/01/2024 3:42 PM T [facility] ALKALINE PHOSPHATASE S/P/B 70 55 - 142 U/L 08/01/2024 3:42 PM T [facility] AST 17 15 - 37 U/L 08/01/2024 3:42 PM CDT [facility] ALT 16 14 - 59 U/L 08/01/2024 3:42 PM T [facility] TOTAL PROTEIN S/P/B 7.6 6.4 - 8.2 G/DL 08/01/2024 3:42 PM T [facility] ALBUMIN S/P/B 3.7 3.4 - 5.0 G/DL 08/01/2024 3:42 PM T [facility] ANION GAP 5.9 5 - 15 MMOL/L 08/01/2024 3:45 PM T [facility] Comment:REFERENCE RANGE NOT ESTABLISHED OSMOLALITY (CALC) 292 MOSM/KG 025 3:42 PM T [facility] Comment:REFERENCE RANGE NOT ESTABLISHED GFR ESTIMATE >90 >90 ML/MIN/1. 73 M2 08/01/2024 3:42 PM [facility] GFR NOTES GFR REFERENCE S: 08/01/2024 3:42 PM T [facility] Comment: THE ESTIMATED GFR IS CALCULATED USING [...] <15 ml/min/1.73 m2 08/01/2024 9:26 AM CDT us Starla Arshad DO LABORATORY Final Re sult [facility] [address] [place] [address], * (ABNORMAL) LIPID PANEL (08/01/2024 9:26 AM CDT) CHOLESTEROL 112 <200 MG/DL 08/01/2024 3:42 PM CDT [facility] TRIGLYCERIDES 58 <150 MG/DL 08/01/2024 3:42 PM CDT [facility] HDL 40(L) >40 MG/DL 08/01/2024 3:42 PM CDT [facility] LDL-C 60 <100 MG/DL 08/01/2024 3:42 PM CDT [facility] VLDL CALCULATION 12 5 - 28 MG/DL 08/01/2024 3:42 PM CDT [facility] CHOL/HDL RATIO 2.8 0.0 - 4.0 08/01/2024 3:42 PM CDT [facility] LDL/HDL 1.5 0.41 - 2.13 08/01/2024 3:42 PM CDT [facility] NON HDL CHOLESTEROL 72 <140 MG/DL 08/01/2024 3:42 PM CDT [facility] 08/01/2024 9:26 AM CDT Starla Arshad DO LABORATORY Final Re sult [facility] [address] [place] [address], * CBC W/DIFF AUTOMATED (08/01/2024 9:26 AM CDT) Only the most recent of2 resultswithin the time period is included. WBC 8.07 4.00 - 10.80 x10'3/uL 08/01/2024 2:43 PM CDT [facility] RBC 4.19 4.10 - 5.40 x10'6/uL 08/01/2024 2:43 PM CDT [facility] HGB 13.0 12.0 - 16.0 G/DL 08/01/2024 2:43 PM CDT [facility] HCT 38.4 36.0 - 47.0 % 08/01/2024 2:43 PM CDT [facility] MCV 91.6 78.0 - 100.0 FL 08/01/2024 2:43 PM CDT [facility] MCH 31.0 27.0 - 31.0 PG 08/01/2024 2:43 PM CDT [facility] MCHC 33.9 33.0 - 36.0 G/DL 08/01/2024 2:43 PM CDT [facility] RDW 13.2 11.5 - 14.5 % 08/01/2024 2:43 PM CDT [facility] PLT 281 150 - 350 x10'3/uL 08/01/2024 2:43 PM CDT [facility] MPV 9.4 7.4 - 10.4 FL 08/01/2024 2:43 PM CDT [facility] DIFFERENTIAL TYPE AUTOMATED DIFFERENTIAL 08/01/2024 2:43 PM CDT [facility] NEUTROPHILS % 68.6 % 08/01/2024 2:43 PM CDT [facility] LYMPHOCYTES % 18.2 % 08/01/2024 2:43 PM CDT [facility] MONOCYTES % 7.9 % 08/01/2024 2:43 PM CDT [facility] EOSINOPHILS % 4.8 % 08/01/2024 2:43 PM CDT [facility] BASOPHILS % 0.4 % 08/01/2024 2:43 PM CDT [facility] IMMATURE GRANS % 0.1 % 08/01/2024 2:43 PM CDT [facility] ABS. NEUTROPHILS 5.53 1.60 - 8.30 x10'3/uL 08/01/2024 2:43 PM CDT [facility] ABS. LYMPHOCYTES 1.47 0.80 - 4.70 x10'3/uL 08/01/2024 2:43 PM CDT [facility] ABS. MONOCYTES 0.64 0.00 - 1.50 x10'3/uL 08/01/2024 2:43 PM CDT [facility] ABS. EOSINOPHILS 0.39 0.00 - 0.40 x10'3/uL 08/01/2024 2:43 PM CDT [facility] ABS. BASOPHILS 0.03 0.00 - 0.20 x10'3/uL 08/01/2024 2:43 PM CDT [facility] ABS. IMMATURE GRANULOCYTES 0.01 0.00 - 0.03 x10'3/uL 08/01/2024 2:43 PM CDT [facility] 08/01/2024 9:26 AM CDT Starla Vladimir Varelasmith DO LABORATORY Final Re sult Performing Organization Address [facility] de Phone Number [address] [address], * VITAMIN D, 25 OH (08/01/2024 9:26 AM CDT) VITAMIN D 25 HYDROXY TOTAL S/P/B 31.9 30 - 100 NG/ML 08/01/2024 3:42 PM CDT [facility] Comment: DEFICIENT <20 INSUFFICIENT 20-30 SUFFICIENT 30-100 08/01/2024 9:26 AM CDT Starla Vladimir Arshad DO LABORATORY Final Re sult Performing Organization Address [facility] de Phone Number [address] [address], * CT GENERIC (08/01/2024) Only the most recent of3 resultswithin the time period is included. Anatomical Region Laterality Modality Other 08/01/2024 [facility] Scanned SCANNING Final Resu lt * OUTSIDE LAB (SCAN ORDER) (08/01/2024) Only the most recent of11 resultswithin the time period is included. 08/01/2024 [facility] Scanned SCANNING Final Resu lt * PATHOLOGY GENERIC (SCAN ORDER) (06/28/2024) 06/28/2024 Result [facility] Scanned SCANNING Final Resu lt * IMAGE GENERIC (06/28/2024) Only the most recent of3 resultswithin the time period is included. Anatomical Region Laterality Modality Other 06/28/2024 Result [employer] [facility] Scanned SCANNING Final Resu lt * PROCEDURE GENERIC (SCAN ORDER) (06/28/2024) 06/28/2024 Result [facility] [facility] Scanned SCANNING Final Resu lt * URINE BACTERIA CULTURE (06/14/2024 10:27 AM [employer] SPECIALIST) Only the most recent of2 resultswithin the time period is included. SPEC DESCRIPTION URINE CLEAN CATCH 06/14/2024 2:05 PM [facility] SPECIAL REQUESTS NO SPECIAL REQUEST 06/14/2024 2:05 PM [facility] CULTURE RESULT EQUAL OR >100,000 CFU/mL ESCHERICHIA COLI 06/16/2024 9:58 AM [facility] URINE SPECIMEN OBTAINED BY CLEAN CATCH PROCEDURE / Unknown 06/14/2024 10:27 AM [employer] SPECIALIST 06/14/2024 5:11 PM [employer] F[employer]ORING SPECIALIST Narrative Organism Antibiotic Method Susceptibility Escherichia coli [...] O RDERABLES Final Result Performing Organization Address [facility]/ZIP Co de Phone Number [facility] [address] [place] [address], [place] [phone] * (ABNORMAL) URINALYSIS AUTO DIP (06/14/2024) COLOR (U) BROWN(A) YELLOW [facility] TRANSPARENCY TURBID(A) CLEAR [facility] GLUCOSE (U) NEGATIVE NEGATIVE MG/DL [facility] BILIRUBIN (U) 2+ (MODERATE)(A ) NEGATIVE [facility] KETONES MG/DL (U) 5 (TRACE)(A) NEGATIVE MG/DL [facility] SPECIFIC GRAVITY (U) 1.020 1.001 - 1.[address] [facility] BLOOD (U) LARGE (Non Hemolyzed, Intact, About 250 rbc/uL)(A) NEGATIVE [facility] U PH 5.5 5.0 - 9.[address] [facility] PROTEIN (U) 3+ (>=300)(A) NEGATIVE mg/dL [facility] UROBILINOGEN 4.0(A) 0.2 - 1.0 EU/dL = mg/dL [facility] NITRITES POSITIVE(A) NEGATIVE MG/DL [facility] LEUKOCYTES (U) 3+ (LARGE)(A) NEGATIVE [facility] URINE SPECIMEN OBTAINED BY CLEAN CATCH PROCEDURE / Unknown 06/14/2024 Starla Arshad DO URINE ORDERABLES Final R esult Performing Organization Address [facility] Co de Phone Number [facility] [address] [place] [address], [place] * ECG 12 lead (05/22/2024 4:19 PM [employer] FLOORING SPECIALIST) 05/22/2024 4:19 PM [employer] FLOORING SPECIALIST Narrative [facility] (ABA) RAD - 05/22/2024 11:53 PM [employer]WO[employer] FLOORING [employer]IST [facility] Test Date: 2024-05-22 Pat Name: DANNY WELLER Department: 41 Room: VAUGHN Gender: Female Fur Blender: [id number] : 1955 Requested By: VIN VEGAS Order Number: [id number] Reading BAILEY Dowell Measurements Intervals [place] Rate: 70 P: 68 OR: 185 QRS: 69 QRSD: 94 T: 41 QT: 385 QTc: 416 Interpretive Statements SINUS RHYTHM NONSPECIFIC T-WAVE ABNORMALITY Compared to ECG 04/01/2023 11:55:20 T-wave abnormality now present [employer]ORING SPECIALIST Procedure Note Chuy Dowell MD - 05/22/[address] [facility] [address] Test Date: 2024-05-22 Pat Name: DANNY WELLER Department: 41 Room: VAUGHN Gender: Female Fur Blender: [id number] : 1955 Requested By: VIN VEGAS Order Number: [id number] Reading : Chuy Dowell Measurements Intervals [place] Rate: 70 P: 68 OR: 185 QRS: 69 QRSD: 94 T: 41 QT: 385 QTc: 416 Interpretive Statements SINUS RHYTHM NONSPECIFIC T-WAVE ABNORMALITY Compared to ECG 04/01/2023 11:55:20 T-wave abnormality now present WOOD FLOORING SPECIALIST us [place] VAULT SERVICE MECHANIC ECG ORDERABLES Final Result [facility] ([facility] * TROPONIN, QUANT (05/22/2024 4:08 PM HARDWOOD FLOORING SPECIALIST) TROPONIN I HIGH SENSITIVITY <3 <54 ng/L 05/22/2024 5:11 PM HARDWO[employer] FLOORING SPECIALIST [facility] Comment: HIGH DOSES OF BIOTIN, TROPONIN-SPECIFIC AUTOANTIBODIES, AND ANTIBODY THERAPY CONTAINING HAMA MAY INTERFERE WITH THIS TEST RESULT. CORRELATION TO CLINICAL HISTORY AND PRESENTATION RECOMMENDED. 05/22/2024 4:08 PM HARDWO[employer] FLOORING SPECIALIST [place] VAULT SERVICE MECHANIC LABORATORY Final Result [facility] [address] [place] [address], [place] [phone] * (ABNORMAL) URINALYSIS (05/22/2024 3:19 PM HARDWOOD FLOORING SPECIALIST) [facility] SPECIMEN TYPE URINE CLEAN CATCH 05/22/2024 3:22 PM HARDWO[employer] FLOORING SPECIALIST [facility] COLOR (U) LIGHT ORANGE 05/22/2024 3:33 PM HARDWO[employer] FLOORING SPECIALIST [facility] TRANSPARENCY TURBID 05/22/2024 3:33 PM [employer]ARDWO[employer] FLOORING SPECIALIST [facility] SPECIFIC GRAVITY (U) 1.013 1.001 - 1.030 05/22/2024 3:33 PM HARDWOOD FLOORING SPECIALIST [facility] U PH 6.5 5.0 - 9.0 05/22/2024 3:33 PM [facility] LEUKOCYTES (U) 25(A) NEGATIVE 05/22/2024 3:33 PM HARDWO[employer] FLOORING SPECIALIST [facility] NITRITES NEGATIVE NEGATIVE 05/22/2024 3:33 PM [facility] PROTEIN RANDOM (U) 20 <30 MG/DL 05/22/2024 3:33 PM [facility] GLUCOSE (U) NORMAL NORMAL MG/DL 05/22/2024 3:33 PM HARDWO[employer] FLOORING SPECIALIST [facility] KETONES MG/DL (U) NEGATIVE NEGATIVE MG/DL 05/22/2024 3:33 PM HARDWO[employer] FLOORING SPECIALIST [facility] UROBILINOGEN NORMAL NORMAL MG/DL 05/22/2024 3:33 PM HARDWOOD FLOORING SPECIALIST [facility] BILIRUBIN (U) NEGATIVE NEGATIVE MG/DL 05/22/2024 3:33 PM HARDWOOD FLOORING SPECIALIST [facility] BLOOD (U) 3+(A) NEGATIVE 05/22/2024 3:33 PM HARDWO[employer] FLOORING SPECIALIST [facility] WBC/HPF 88(H) <6 /HPF 05/22/2024 3:33 PM HARDWO[employer] FLOORING SPECIALIST [facility] RBC/HPF >100(H) <6 /HPF 05/22/2024 3:33 PM HARDWOOD FLOORING SPECIALIST [facility] BUDDING YEAST RARE(A) NONE /HPF 05/22/2024 3:33 PM HARDWOOD FLOORING SPECIALIST [facility] SQUAMOUS EPITHELIALS RARE /HPF 05/22/2024 3:33 PM HARDWOOD FLOORING SPECIALIST [facility] URINE SPECIMEN OBTAINED BY CLEAN CATCH PROCEDURE / Unknown 05/22/2024 3:19 PM [employer] [place] [employer] URINE ORDERABLES Final Result [facility] [address] [place] [address], [place] [phone] * XR CHEST PORTABLE (05/22/2024 3:02 PM [employer]) Anatomical Region Laterality Modality Chest Radiographic Nuris ging 05/22/2024 3:04 PM [employer] Impressions 05/22/2024 3:05 PM [employer] Impression: Unremarkable one view chest; no radiographic evidence of acute/active cardiopulmonary disease Ordered By: VIN VEGAS Interpreted By: Lisa Edwards MD, 05/22/2024 3:04 PM Narrative 05/22/2024 3:05 PM [employer] [address] [address] Examination: Chest x-ray 1 view Exam date/time: [...] Procedure Note Lisa Edwards MD - 05/22/[address] [address] Examination: Chest x-ray 1 view Exam date/time: [...] By: Lisa Edwards MD, 05/22/2024 3:04 PM [place] [employer] GENERAL IMAGING Final Result * OUTSIDE LAB COVID-19 (05/16/2024) CORONAVIRUS SARS COV 2 PCR (RESP) NOT DETECTED NOT DETECTED [facility] 05/16/2024 [facility] Scanned SCANNING Final Resu lt [facility] * HEPATITIS C ANTIBODY (04/05/2023 8:24 AM [employer]) HEPATITIS C AB NON-REACTI VE NON-REACT RAUL 04/05/2023 6:53 PM [employer] [facility] Comment: ANTIBODIES TO HCV NOT DETECTED. DOES NOT EXCLUDE THE POSSIBILITY OF EXPOSURE TO HCV. 04/05/2023 8:24 AM HARDWOOD FLOORING SPECIALIST Starla Arshad DO LABORATORY Final Re sult Performing Organization Address City/[facility] Co de Phone Number [facility] [address] [place] [address], [phone] * MG DIAG W WILMER BILAT DIGI [...] Examination: Bilateral digital diagnostic mammogram with CAD. [id number] Clinical history: Left breast lump and tenderness. [...] demonstrate any discrete solid or cystic mass. [place] appearing tissue architecture is demonstrated. Physical exam surveillance is advised with any further evaluation at this point guided on that basis. From a mammographic standpoint, routine follow-up in one year would seem adequate. These findings were discussed with the patient. Starla Arshad DO MAMMO Final Re sult from Last 3 Months or Most Recently Relevant to Health Maintenance Insurance [facility] MEDICAID Advance Directives * Full Code (Latest Code Status on File) Date Activated Date Inactivated Comments 09/22/2020 12:40 PM 09/23/2020 12:52 PM Care Teams Tail Puller Relationship Specialty Start Date End Date Starla Arshad DO [address] [place] [id number] PCP - General FAMILY PRACTICE 08/19/20
--- OUTSIDE RECORDS SUMMARY | 2024-08-14 08:31 | XMS_ITS | Data Portability ---
Author Organization [facility] OFFICE Address [address] [place] [address] Care Team Providers Care Equine Science Instructor Name Role Phone JESUS MACEDO Primary Care [...] By Organization Details Last Modified Time 04/30/2020 [id number] Exercise advised Low cholesterol diet advised Low sodium diet advised [email or web address] Not available 04/30/2020 16:38:42 Scribed by Kamila Michele [facility] [email or web address] Not available 04/30/2020 16:38:44 Reason [...] bibasiller atelectasis or infection,clinical correlation. Efra Whitman [facility] 05/03/2020 10:01:32 D-dimer Feu, Qn, Ia, Blood : D-dimer 04/01/20:0.37 Efra Whitman [facility] 05/03/2020 09:54:26 Cbc W/ Diff : 04/01/20:WBC 7.6,RBC 4.68,HGB 14.8,HCT 41.8,PLT 251. Efra Whitman [facility] 05/03/2020 09:50:44 Cmp, Serum Or Plasma : 04/02/20:Na 139,K 3.4,Cl 102,CO2 32,GLU 99,BUN 11,Cr 0.6,Mg 2.1 [facility] 05/03/2020 09:54:26 Lipid Panel, Blood : 04/02/20: TC 167,TG 220,LDL 107,HDL 30. Efra Whitman [facility] 05/03/2020 09:54:26 Problems Name Problem SNOMED Code Status Onset Date Resolution Date Notes Provider Name and Address Organization Details Recorded Time Essential hypertension 55409691 Active 2020 [facility] 15:22:30 Cerebrovascula r accident 597786311 Active 2020 [facility] 15:22:39 Hypercholester olemia 61295273 Active 2020 [facility] 15:22:56 Depressive disorder 30562754 Active 2020 [facility] 15:23:04 Problem Notes None recorded. Procedures Surgical History Date Name Laterality Status Provider Name and Address Organization Details Recorded Time Hysterectomy completed [facility] 04/30/2020 15:24:35 Cholecystectomy completed [facility] 04/30/2020 15:24:43 Imaging Results Imaging Date [...] Name and Address Organization Details Recorded Time 79080 sulfobrom ophthalei n sodium medicatio n Not available Not available Not available 04/30/202073139 0 RxNorm Renae [facility], [place] - [facility] 15:21:51 18142 tetracycl ine medicatio n Not available Not available Not available 04/30/2020 29302 RxNorm [facility] [place] [facility] 15:22:03 Medications Name [...] Available Not Available Not Available Fluzone Quad [id number] (PF) 60 mcg (15 mcg x 4)/0.5 [...] Last Updated DateTime 165.1 cm 28.3 kg/m2 29471.7 g 84 /min 18 /min 94 % 94 % 97.2 [degF] 170 mm[Hg] 100 mm[Hg] Renae [facility] 15:31:15 Social History Question Answer Notes LastModified by Organizat ion Details LastModified Time Tobacco Smoking Status Current Every Day Smoker Renae [facility] 04/30/2020 15:23:42 Do You Have An Advance Directive? No [facility] Information not available 04/30/2020 What Is Your Level Of Alcohol Consumption? Occasional [facility] Information not available 04/30/2020 What Is Your Level Of Caffeine Consumption? None [facility] Information not available 04/30/2020 How Much [...] Father No current problems or disability Stroke [facility] Not available 04/18 15:23:31 Mother No current problems or disability Heart Diseas e Not available 04/30/2020 15:23:38 Medical History Condition Response Hyperlipidemia Y Hypertension Y High Cholesterol Y Gynecological HistoryNo gynecological history recorded. Obstetrics History GPAL:G 0 P 0 0 0 0 Past Encounters Encounter ID Performer Location Encounter Start Date Encounter Closed Date Diagnosis/Indication Diagnosis SNOMED-CT Code Diagnosis ICD10 Code Diagnosis Note [id number] MD Izzy Naqvi Office [address] [place] [address] 04/30/2020 14:29:44 04/30/2020 15:51:37 Atypical chest pain 911474363 R07.89 Treadmill Myoview Stress test, has high [place] Risk score. Has Known CAD, or CAD risk equivalent . To look for any ischemia. 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 Cessation highly advised Essential hypertension 79250187 I10 Hyperlipidemia 17039417 E78.5 Needs to keep LDL less than 100, and HDL more than 40.Current ly not on statin therapyWil l get fasting lipids for follow-up Peripheral vascular disease 563566270 I73.9 Will get arterial doppler, to evaluate severity of peripheral vascular disease Health Concerns Section Related Observation LastModified by Organization Detai ls LastModified Time None Recorded Concern Status LastModified by Organization Details LastModified Time None Recorded Advance Directives Directive N: Payers Encounter Date Sequence Insurance Name Policy Number Policy Brown Covered Member ID Brown Member ID Guarantor Name 04/30/2020 2 [place] DEPARTMENT [place] A[employer] Jeniffer Weller [id number] Jeniffer Weller 04/30/2020 1 [place] Jeniffer Weller [id number] Jeniffer Weller Notes Date Note Type Note Provider Name and Address Organization Details Recorded Time 04/30/2020 text/html 04/30/2020 CC: chest pain Patient is a 64-year-old female with a past medical history of HLD, HTN, COPD, and CKD who is seen in cardiac consultation with a chief complaint of chest pain and hospital follow-up. She was admitted to [facility] on 04/01/2020 with chest pain. Her [...] She denies ETOH abuse. Merrick Lin MD [address] [place], [place], [address], [place] [facility] 04/30/2020 16:39:25 OBGyn Episode No OBEpisode recorded.
--- OUTSIDE RECORDS SUMMARY | 2024-08-14 08:31 | XMS_ITS | Encounter Summary ---
Author Organization [facility] Address [address] [place] [address] Care Team Providers Care Biscuit Packer Name Role Phone Jimmy Doyle DO Primary Care Provider + Reason for Visit * Reason Comments Allied Health Visit A1C Encounter Details Date Type Department Care Team (Latest Contact Info) Description 08/13/2024 2:00 PM CDT Allied Health/Nurse Visit [facility] Family & Internal Medicine [facility] [address] [place] [address] Jimmy Doyle DO [facility] [place], [place] [phone] Allied Health Visit (A1C) Social History Tobacco Use Types Packs/Day Years Used Date Smoking Tobacco: Every Day Cigarettes 1 55 Started: 08/19/1967 Smokeless Tobacco: Never Comments:trying to quit. 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 Patient is aware of her results. Patient also dropped off her parking placard. This has been filled out and mailed back to the state and the patient. Opportunity givenfor all questions to be answered, no further needs voiced at this time. LL-08/13/24 documented in this encounter Plan of Treatment Upcoming Encounters Date Type Department Care Team (Late st Contact Info) Description 08/31/2024 12:00 PM CDT Office Visit [facility] [phone] Abhi Aguilar MD [address] [facility] [address] [place] [phone] 11/05/2024 10:20 AM CDT Office Visit [facility] Family & Internal Medicine - [address] [phone] Jimmy Doyle DO [address] [place] [address] documented as of this encounter Goals Goal [...] HEMOGLOBIN, GLYCOSYLATED Routine 08/13/2024 Elevated fasting glucose documented in this encounter Results * A1C (BACK OFFICE) (08/13/2024) HGB A1C 5.6 % [facility] 08/13/2024 us Jimmy Doyle DO LABORATORY Final Re sult [address] [address], documented in this encounter Visit Diagnoses Diagnosis Elevated fasting glucose- Primary Impaired fasting glucose documented in this encounter Additional Health Concerns Assessment Noted Time PHQ-9 Depression Total Score: 10 025 9:55 AM PIPELINES SUPERVISOR documented as of this encounter Care Teams Biscuit Packer Relationship Specialty Start Date End Date Jimmy Doyle DO [address] [place] [address] PCP - General FAMILY PRACTICE 08/19/20 documented as of this encounter
--- NOTE | 2024-08-14 08:42 | ED.NAVMDI ---
HPI - Nausea/Vomiting/Diarrhea General Chief complaint: Nausea/Vomiting/Diarrhea Stated complaint: n/v Time Seen by Provider: 08/14/24 08:04 History of Present Illness HPI Narrative: Patient is a 68-year-old female who presents ER with nausea and vomiting. Reports she has renal cell carcinoma and is going to start chemotherapy at some point. She vomited 3 times last night could not sleep so she want to be evaluated. No diarrhea. No dysuria. Does intermittently have urinary retention and is on her bed trich. She is also on cephalexin. No dysuria. Related Data Home Medications ?Medication ?Instructions ?Recorded ?Confirmed ?Last Taken ?Type aspirin 81 mg tablet,delayed 81 mg PO DAILY 04/05/19 08/09/24 08/01/24 History release (Aspir-) atorvastatin 40 mg tablet (Lipitor) 40 mg PO HS 01/10/21 08/09/24 08/08/24 History bupropion HCl 150 mg 24 hr tablet, 150 mg PO HS 01/10/21 08/09/24 08/08/24 History extended release (Wellbutrin XL) isosorbide mononitrate 30 mg 90 mg PO QACLUNCH 01/10/21 08/09/24 08/09/24 History tablet,extended release 24 hr nitroglycerin 0.4 mg sublingual 0.4 mg sublingual ONCE 01/10/21 07/30/24 05/16/24 History tablet potassium chloride 10 mEq 10 meq PO DAILY 01/10/21 08/09/24 08/08/24 History tablet,extended release (K-Tab) venlafaxine 150 mg See Rx Instructions .Route .COMPLEX 03/02/22 08/09/24 08/09/24 History capsule,extended release 24 hr (Effexor XR) cholecalciferol (vitamin D3) 125 125 mcg PO DAILY 11/12/22 08/09/24 08/05/24 History mcg (5,000 unit) tablet (Vitamin D3) hydrocodone 10 mg-acetaminophen 1 tablet PO PRN PRN pain 06/18/24 08/09/24 08/09/24 History 325 mg tablet oxybutynin chloride 10 mg 10 mg PO HS 06/18/24 08/09/24 08/08/24 History tablet,extended release 24 hr alprazolam 0.5 mg tablet 0.5 mg PO TID PRN anxiety 07/30/24 08/09/24 08/09/24 History carvedilol 12.5 mg tablet 12.5 mg PO BID 07/30/24 08/09/24 08/09/24 History Allergies Allergy/AdvReac Type Severity Reaction Status Date / Time amitriptyline (From Elavil) Allergy Unknown Confusion Verified 08/14/24 07:34 Penicillins Allergy Unknown Rash Verified 08/14/24 07:34 Sulfa (Sulfonamide Allergy Unknown Hives Verified 08/14/24 07:34 Antibiotics) sulfanilamide Allergy Unknown Hives Verified 08/14/24 07:34 ciprofloxacin AdvReac Intermediate Shakiness Verified 08/14/24 07:34 codeine AdvReac Unknown N/V Verified 08/14/24 07:34 tetracycline AdvReac Unknown Nausea Verified 08/14/24 07:34 doxycycline AdvReac Nausea and Verified 08/14/24 07:34 Vomiting Review of Systems Review of Systems: All systems reviewed & are unremarkable except as noted in HPI and below Constitutional: Constitutional: Reports no additional constitutional complaints Cardiovascular: Cardiovascular: Reports no additional cardiovascular complaints Respiratory: Respiratory: Reports no additional respiratory complaints Gastrointestinal: Gastrointestinal: Reports no additional gastrointestinal complaints Genitourinary: Genitourinary: Reports no additional female genitourinary complaints PMFSH Past Medical History Medical History Emphysema lung Screening for colon cancer Screening for breast cancer Postmenopausal Hx of pancreatitis Depression Kidney stones Kidney disease Urinary frequency High cholesterol Pneumonia Vision abnormalities Weight gain Cholecystectomy planned Anxiety Surgical History Surgical History H/O excision of mass 11/22/22 Excision of 5 cm perianal cyst History of cholecystectomy Hx of tonsillectomy History of partial hysterectomy H/O colonoscopy History of esophagogastroduodenoscopy (EGD) History of laryngoscopy Family History Family History Sibling Patient's brother is in good health Dementia Mother Family history of coronary artery disease Acute myocardial infarction Father Patient's father is Acute myocardial infarction Cerebrovascular accident Unknown Heart disease Cerebrovascular accident Other Family history of mental disorder Social History Social History Smoking packs per day: 1 Smoking cigarettes per day: 20.0 Years smoked: 50 Smoking pack-years: 50.00 Smoking status: Current every day smoker Tobacco type: cigarettes Second hand tobacco smoke exposure: No Alcohol intake: never Substance use: current Substance use type: marijuana Other substance usage details: Daily Last use: 03/02/22 Lack of Transportation: No Lack of Food: Never True Current Housing: I Have Housing Concerned About Future Housing: No Difficulty Paying Gas/Electric Bills: No Difficulty Paying for Meds: No Currently Unemployed: No Education: Decline to Answer Difficulty w/ Childcare or Family Care: No Living arrangements: alone Spiritual care concerns: No Exam Narrative: GENERAL: Well-appearing, well-nourished, and in no acute distress. HEAD: Normocephalic, atraumatic. ENT: Mucous membranes moist. CHEST: Clear to auscultation. No respiratory distress. HEART: Regular rate and rhythm. Normal peripheral pulses. ABDOMEN: Soft, nontender, nondistended. EXTREMITIES: Normal range of motion. No edema. SKIN: Warm, dry, no rash. NEURO: Alert and oriented x3. PSYCH: Normal mood and affect. Course Course Emergency Course: Patient resting comfortably. No vomiting here. Stent in place. Urine with mild abnormalities slightly related to stent placement. Will give antiemetics for home. Recommend follow-up with her urologist. Vital Signs Vital signs: Vital Signs Temperature 99.3 F 08/14/24 07:23 Pulse Rate 82 08/14/24 07:23 Respiratory Rate 12 08/14/24 07:23 Blood Pressure 102/82 08/14/24 07:23 Oxygen Delivery Room Air 08/14/24 07:23 Temperature 99.3 F 08/14/24 07:23 Pulse Rate 76 08/14/24 10:51 Respiratory Rate 18 08/14/24 10:51 Blood Pressure 119/55 L 08/14/24 10:51 Pulse Oximetry 99 08/14/24 10:51 Oxygen Delivery Room Air 08/14/24 07:23 MDM - Nausea/Vomiting/Diarrhea Lab Data 08/14/24 07:38 08/14/24 07:38 Labs: Lab Results 08/14/24 08/14/24 Range/Units 07:38 09:04 WBC 7.3 (4.5-10.0) K/mm3 RBC 3.96 L (4.2-5.4) M/mm3 Hgb 12.2 (12.0-15.0) g/dL Hct 34.9 L (37.0-47.0) % MCV 88.1 (80-100) fl MCH 30.8 (26-34) pg MCHC 35.0 (32-36) g/dl RDW 13.3 (11.5-14.5) % Plt Count 239 (150-375) k/mm3 MPV 8.9 (7.4-10.4) fl Immature Gran % (Auto) Not Reportable Neut % (Auto) Not Reportable Lymph % (Auto) Not Reportable [place] % (Auto) Not Reportable Eos % (Auto) Not Reportable Baso % (Auto) Not Reportable Lymph # (Auto) Not Reportable [place] # (Auto) Not Reportable Eos # (Auto) Not Reportable Baso # (Auto) Not Reportable Abs Immat Gran (auto) Not Reportable Absolute Neuts (auto) Not Reportable Absolute Nucleated RBC Not Reportable Total Counted 100 Neutrophils % (Manual) 66 (46-73) % Band Neutrophils % 3 (0-6) % Lymphocytes % (Manual) 21 (18-44) % Monocytes % (Manual) 9 (3-9) % Eosinophils % (Manual) 1 (0-4) % Nucleated RBC % Not Reportable Abs Neuts (Manual) 5.03 (1.7-7.2) K/mm3 Abs Lymphs (Manual) 1.53 (1.1-4.5) K/mm3 Abs Monocytes (Manual) 0.65 (0.1-0.90) K/mm3 Absolute Eos (Manual) 0.07 (0.02-0.50) K/mm3 Atypical Lymphocytes Present Platelet Estimate Adequate (Adequate) Schistocytes None seen Sodium 133 L (137-145) mmol/L Potassium 3.6 (3.4-5.0) mmol/L Chloride 99 (98-107) mmol/L Carbon Dioxide 29 (22-30) mmol/L Anion Gap 5 (4-12) mmol/L BUN 14 (7-17) mg/dL Creatinine 0.55 L (0.7-1.0) mg/dL Estim Creat Clear Calc 76 ml/min Estimated GFR > 60 (59 - ) Glucose 110 (65-110) mg/dL Calcium 8.9 (8.4-10.2) mg/dL Total Bilirubin 0.8 (0.2-1.3) mg/dL AST 28 (14-36) U/L ALT 20 (6-35) U/L Alkaline Phosphatase 74 (38-126) U/L Total Protein 8.0 (6.3-8.2) g/dL Albumin 4.0 (3.5-5.1) g/dL Lipase 37 (23-300) U/L Urine Color Dark yellow (Yellow) Urine Appearance Clear (Clear) Urine pH 6.0 (5.0-9.0) Ur Specific [place] 1.017 (1.001-1.035) Urine Protein 1+ H (Negative) mg/dL Urine Glucose (UA) Negative (Negative) mg/dL Urine Ketones Trace H (Negative) mg/dL Ur Blood (Man) 2+ H (Negative) Urine Nitrate Negative (Negative) Urine Bilirubin Negative (Negative) Urine Urobilinogen 1.0 (<2.0) mg/dL Add Ur Microanalysis Reviewed Leukocyte Esterase Rfl 1+ H (Negative) BRITTANI/UL Urine RBC 51-100 H (0-2) /hpf Urine WBC 11-20 H (0-3) /hpf Ur Squamous Epith Cells Occasional (Few) /hpf Urine Bacteria None seen /hpf Urine Casts 0-2 Imaging Data Radiologist's impression: ITS Impressions Abdomen X-Ray 08/14/24 11:17 IMPRESSION: NO ACUTE ABDOMINAL FINDINGS. Left kidney stones. Possible stone in the right kidney. Right double-J stent. Discharge Plan Discharge Clinical Impression: Nausea & vomiting Patient Disposition: Home Condition: Stable Instructions: Antibiotic Form, Acute Nausea and Vomiting (ED) Additional Instructions: Return to the emergency department if you develop severe abdominal pain, severe nausea and vomiting to the point where you are unable to keep down fluids, if you develop chest pain or difficulty breathing, blood in your stool, dizziness or fainting, or if you develop any other new or concerning symptoms as these could be signs of more serious medical illness. Try to stay well hydrated. Patient Language: Urdu Prescriptions: New ondansetron 4 mg tablet,disintegrating 4 mg PO Q6H PRN (Reason: nausea and vomiting) Qty: 10 0RF No Action atorvastatin [Lipitor] 40 mg Tablet 40 mg PO HS isosorbide mononitrate 30 mg Tablet Extended Release 24 Hr 90 mg PO QACLUNCH potassium chloride [K-Tab] 10 mEq Tablet Extended Release 10 meq PO DAILY nitroglycerin 0.4 mg Tablet, Sublingual 0.4 mg SUBLINGUAL ONCE bupropion HCl [Wellbutrin XL] 150 mg Tablet Extended Release 24 Hr 150 mg PO HS aspirin [Aspir-81] 81 mg tablet,delayed release (DR/EC) 81 mg PO DAILY venlafaxine [Effexor XR] 150 mg capsule,extended release 24hr See Rx Instructions .ROUTE .COMPLEX Patient Comments: QAM Rx Instructions: TAKE 1 CAPSULE BY MOUTH DAILY ranolazine [Ranexa] 500 mg Tablet Extended Release 12 Hr 500 mg PO Q12HR 30 Days Qty: 60 0RF oxybutynin chloride 10 mg tablet extended release 24hr 10 mg PO HS Rx Instructions: Take 1 tablet (10 mg total) by mouth nightly at bedtime. hydrocodone-acetaminophen 10-325 mg tablet 1 tablet PO PRN PRN (Reason: pain) Rx Instructions: Take 1 tablet by mouth every 8 (eight) hours as needed. Indications: Chronic Pain cholecalciferol (vitamin D3) [Vitamin D3] 125 mcg (5,000 unit) Tablet 125 mcg PO DAILY alprazolam 0.5 mg tablet 0.5 mg PO TID PRN (Reason: anxiety) carvedilol 12.5 mg tablet 12.5 mg PO BID Rx Instructions: must administer with a meal/food hydrocodone-acetaminophen 5-325 mg tablet 1 - 2 tablet PO Q6H PRN (Reason: pain) Qty: 20 0RF cephalexin 500 mg capsule 500 mg PO Q8H Qty: 15 0RF mirabegron [Myrbetriq] 50 mg tablet extended release 24 hr 50 mg PO DAILY Qty: 30 0RF quetiapine [Seroquel] 300 mg tablet 300 mg PO QPM Qty: 90 1RF hydrochlorothiazide 25 mg tablet 25 mg PO DAILY Qty: 90 1RF Patient Comments: QAM Follow-up/Referrals: Vivek,DO Jimmy [Primary Care Provider] - 1 Week
[2024-08-14 09:24] LABS: Add Urine Microscopic? YES; Appearance Urine Clear (Clear); Bacteria Urine None Seen /hpf; Bilirubin Urine Negative (Negative); Blood Urine 2+ (Negative); Color Urine Dark Yellow (Yellow); Glucose Urine UA Negative (Negative); Ketones Urine Trace mg/dL (Negative); Leukocyte Esterase Ur 1+ LEU/UL (Negative); Need Manual Microscopic Reviewed; Nitrate Urine Negative (Negative); Non Pathogenic Casts 0-2; Protein Urine 1+ mg/dL (Negative); RBC Urine 51-100 /hpf (0-2); Specific Grav Ur 1.017 (1.001-1.035); Squamous Epithelial Cell Urine Occasional /hpf (Few)
== END 2024-08-14 12:49 | disposition home or self-care (01) ==
PROVIDERS: Emergency Provider Emergency Medicine; PCP Student in an Organized Health Care Education/Training Program
DX: R11.2 Nausea with vomiting, unspecified (principal); F17.210 Nicotine dependence, cigarettes, uncomplicated; F32.A Depression, unspecified; Z87.442 Personal history of urinary calculi; E78.5 Hyperlipidemia, unspecified; F41.9 Anxiety disorder, unspecified; R82.998 Other abnormal findings in urine
CPT/HCPCS: 36415; 74018; 80053; 81001; 83690; 85025; 87086; 99283

== ENCOUNTER 2024-09-26 11:13 | Outpatient (CLI) | payer MEDICARE, MEDICAID, SELFPAY ==
[2024-09-26 11:37] LABS: Basophils Absolute Auto 0.1 K/mm3 (0.0-0.1); Basophils Percent Auto 0.7 % (0.2-1.2); Eosinophils Absolute Auto 0.6 K/mm3 (0-0.3); Eosinophils Percent Auto 7.4 % (0-4.4); Hematocrit 39.6 % (37.0-47.0); Hemoglobin 13.3 g/dL (12.0-15.0); Immature Granulocyte Absolute 0.02 K/mm3 (0.00-0.031); Immature Granulocyte Percent A 0.3 % (0-0.5); Lymphocytes Absolute Auto 2.22 K/mm3 (0.9-3.2); Lymphocytes Percent Auto 29.4 % (18.3-44.2); Mean Corpuscular HGB Conc 33.6 g/dl (32-36); Mean Corpuscular Hemoglobin 29.8 pg (26-34); Mean Corpuscular Volume 88.6 fl (80-100); Mean Platelet Volume 8.4 fl (7.4-10.4); Monocytes Absolute Auto 0.6 K/mm3 (0.1-0.6); Monocytes Percent Auto 8.5 % (2.6-8.5); Neutrophils Absolute Auto 4.1 K/mm3 (1.3-6.7); Neutrophils Percent Auto 53.7 % (45.5-73.1); Platelet Count Result 302 k/mm3 (150-375); Red Blood Count 4.47 M/mm3 (4.2-5.4); Red Cell Distribution Width 14.2 % (11.5-14.5); White Blood Count 7.6 K/mm3 (4.5-10.0)
[2024-09-26 12:04] LABS: Anion Gap 9 mmol/L (4-12); Blood Urea Nitrogen 10 mg/dL (7-17); Calcium 9.7 mg/dL (8.4-10.2); Carbon Dioxide 27 mmol/L (22-30); Chloride 104 mmol/L (98-107); Estimated Glomerular Filt Rate > 60; Glucose 109 mg/dL (65-110); Potassium 4.1 mmol/L (3.4-5.0); Sodium 140 mmol/L (137-145)
--- OUTSIDE RECORDS SUMMARY | 2024-09-26 13:23 | XMS_ITS | Referral Summary ---
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 MEDICARE ADVANTAGE [place] [facility] MEDICARE ADVANTAGE [facility] MEDICARE ADVANTAGE [facility] MED[facility] Address: [address] [address] [place] [address] [employer] Advance Directives For more information, please contact: [phone] * Full Code (Latest Code Status on File) Date Activated Date Inactivated Comments 02/09/2022 9:51 PM 02/12/2022 5:52 PM Care Teams Product Evangelist Relationship Specialty Start Date End Date Jimmy Doyle DO [address] [place] [id number] PCP - General Family Medicine 02/12/22 Derrell Varma MD [address] [place] [address] Surgeon Surgery 02/12/22
--- OUTSIDE RECORDS SUMMARY | 2024-09-26 13:23 | XMS_ITS | Encounter Summary ---
Author Organization [facility] Address [address] [place] [address] Care Team Providers Care Cinder Pit Worker Name Role Phone Unavailable Primary Care Provider Unavailabl e Encounter Details Date Type Department Care Team (Late st Contact Info) Description 01/28/2022 Lab Requisition [facility] [address] [place] [address] Kathy Mason MD [address] [place], [place] [id number] Illness, unspecified Social History Tobacco Use Types Packs/Day Years Used Date Smoking Tobacco: Never Assessed Comments Unknown Sex and Gender Information Value Date Recorded Sex Assigned at Not on file 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 01/28/2022 12:22 PM CDT [facility] Clinical History HEMATURIA 01/28/2022 12:22 PM CDT [facility] Materials Received One thin prep slide received from [facility] [id number]. All material will be returned. 01/28/2022 12:22 PM CDT [facility] Disclaimer The performance characteristics of all immunohistochemical and indirect immunofluorescence stains (if any) cited in this report were determined by the Histopathology Laboratory of [facility]. Some of these tests were developed [...] attending (teaching) pathologist. 01/28/2022 12:22 PM CDT [facility] Case Report Surgical Pathology Report Case: [id number] Authorizing Provider: Kathy Mason MD Collected: 01/28/2022 10:46 AM Ordering Location: [facility] Received: 01/28/2022 10:51 AM Pathologist: Flaquito Bruno MD Specimen: Slide Consultation 01/28/2022 12:22 PM CDT [facility] Embedded Images 01/28/2022 12:22 PM CDT [facility] Pathology/Cytolo gy SURGICAL PATHOLOGY CONSULTATION AND REPORT ON REFERRED SLIDES PREPARED ELSEWHERE / Unknown 01/28/2022 10:46 AM CDT 01/28/2022 10:51 AM CDT Kathy Mason MD LAB - PATHOLOGY/CYTOLOGY ORDERAB LES Final Result [facility] [address] [place] [address], [facility] [phone] documented in this encounter Visit Diagnoses Diagnosis Illness, unspecified documented in this encounter
--- OUTSIDE RECORDS SUMMARY | 2024-09-26 13:23 | XMS_ITS | Data Portability ---
Author Organization [facility] OFFICE Address [address] [place] [address] Care Team Providers Care Steel Cutter Name Role Phone JESUS MACEDO Primary Care Provider [phone] JESUS MACEDO Referring Provider Assessment No assessment [...] By Organization Details Last Modified Time 04/30/2020 33707 Exercise advised Low cholesterol diet advised Low sodium diet advised [email or web address] Not available 04/30/2020 16:38:42 Scribed by Kamila Michele [facility] [email or web address] Not available 04/30/2020 16:38:44 Reason [...] bibasiller atelectasis or infection,clinical correlation. Efra Whitman [facility] 05/03/2020 10:01:32 D-dimer Feu, Qn, Ia, Blood : D-dimer 04/01/20:0.[address] [facility] [place] 05/03/2020 09:54:26 Cbc W/ Diff : 04/01/20:WBC 7.6,RBC 4.68,HGB 14.8,HCT 41.8,PLT 251. Efra Whitman [facility] 05/03/2020 09:50:44 Cmp, Serum Or Plasma : 04/02/20:Na 139,K 3.4,Cl 102,CO2 32,GLU 99,BUN 11,Cr 0.6,Mg 2.[address] [facility] 05/03/2020 09:54:26 Lipid Panel, Blood : 04/02/20: TC 167,TG 220,LDL 107,HDL 30. Efra Whitman [facility] 05/03/2020 09:54:26 Problems Name Problem SNOMED Code Status Onset Date Resolution Date Notes Provider Name and Address Organization Details Recorded Time Essential hypertension 92982591 Active 2020 [facility] 15:22:30 Cerebrovascula r accident 327388042 Active 2020 [facility] 15:22:39 Hypercholester olemia 62143385 Active 2020 [facility] 15:22:56 Depressive disorder 95481054 Active 2020 [facility] 15:23:04 Problem Notes None recorded. Procedures Surgical History Date Name Laterality Status Provider Name and Address Organization Details Recorded Time Hysterectomy completed [facility] 04/30/2020 15:24:35 Cholecystectomy completed [facility] 04/30/2020 15:24:43 Imaging Results None recorded. Procedure Notes None recorded. Medical Equipment None Reported. Allergies Allergen ID Allergen Name Allergen Category Reaction Reaction Severity Criticality Documentation Date Start Date Code Code System Note Provider Name and Address Organization Details Recorded Time 76431 sulfobrom ophthalei n sodium medicatio n Not available Not available Not available 04/30/2020 38852 0 RxNorm [facility] [place] [place] [facility] [place] 15:21:51 40548 tetracycl ine medicatio n Not available Not available Not available 04/30/2020 71264 RxNorm [facility] [place] [place] 15:22:03 Medications Name Sig Start Date Stop [...] Available Not Available Not Available Fluzone Quad (PF) 60 mcg (15 mcg x 4)/0.5 [...] Last Updated DateTime 165.1 cm 28.3 kg/m2 69665.7 g 84 /min 18 /min 94 % 94 % 97.2 [degF] 170 mm[Hg] 100 mm[Hg] Renae Guillenmaren [facility] 15:31:15 Social History Question Answer Notes LastModified by Organizat ion Details LastModified Time Tobacco Smoking Status Current Every Day Smoker Renae Pineda kyle [facility] [place] 04/30/2020 15:23:42 Do You Have An Advance Directive? No [place] [address] Information not available 04/30/2020 What Is Your Level Of Caffeine Consumption? None [place] [address] Information not available 04/30/2020 How Much Tobacco Do You Chew? None [place] [address] Information not available 04/30/2020 What Type Of Diet Are You Following? REGULAR [place] [address] Information not available 04/30/2020 Which Illicit Or Recreational Drugs Have You Used? No [place] Information not available 04/30/2020 Live Alone Or With Others? With Others [place] [address] Information not available 04/30/2020 Marital Status [facility] Informatio n not available 04/30/2020 How Many Children Do You Have? 1 [place] [address] Information not available 04/30/2020 How Much Tobacco Do You Smoke? 0.5 PPD Information not available 04/30/2020 General Stress Level Low Information not available 04/30/2020 Sex: Unknown Functional Status Question Answer Note LastModified by Organizat ion Details LastModified Time What is your level of alcohol consumption? Occasional Information not available 04/30/2020 What is your exercise level? Moderate Information not available 04/30/2020 Mental Status None recorded. Family History Relationship Description Onset Age of this Age Resolved Age Notes LastModified by Organization Details LastModified Time Father No current problems or disability Stroke Not available 04/18 15:23:31 Mother No current problems or disability Heart Diseas e Not available 04/30/2020 15:23:38 Medical History Condition Response Hyperlipidemia Y Hypertension Y High Cholesterol Y Gynecological HistoryNo gynecological history recorded. Obstetrics History GPAL:G 0 P 0 0 0 0 Past Encounters Encounter ID Performer Location Encounter Start Date Encounter Closed Date Diagnosis/Indication Diagnosis SNOMED-CT Code Diagnosis ICD10 Code Diagnosis Note [id number] MD Izzy Naqvi Office [address] [place], [place] [address] [address] 04/30/2020 14:29:44 04/30/2020 15:51:37 Atypical chest pain 072729364 R07.89 Treadmill Myoview Stress test, has high Nesmith Risk score. Has Known CAD, or CAD risk equivalent . To look for any ischemia. 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 Cessation highly advised Essential hypertension 33988315 I10 Hyperlipidemia 39518829 E78.5 Needs to keep LDL less than 100, and HDL more than 40.Current ly not on statin therapyWil l get fasting lipids for follow-up Peripheral vascular disease 282619298 I73.9 Will get arterial doppler, to evaluate severity of peripheral vascular disease Health Concerns Section Related Observation LastModified by Organization Detai ls LastModified Time None Recorded Concern Status LastModified by Organization Details LastModified Time None Recorded Advance Directives Directive N: Payers Insurance Date Sequence Insurance Name Policy Number Policy Brown Covered Member ID Brown Member ID Guarantor Name 04/27/2020 2 [place] [facility] Jeniffer Weller [id number] Jeniffer Weller 04/27/2020 1 [place] Jeniffer Weller [id number] Jeniffer Weller Notes Date Note Type Note Provider Name and Address Organization Details Recorded Time 04/30/2020 text/html 04/30/2020 CC: chest pain Patient is a 64-year-old female with a past medical history of HLD, HTN, COPD, and CKD who is seen in cardiac consultation with a chief complaint of chest pain and hospital follow-up. She was admitted to [facility] on 04/01/2020 with chest pain. Her [...] She denies ETOH abuse. Merrick Lin MD [address] [place], [address], [place] [facility] 04/30/2020 16:39:25 OBGyn Episode No OBEpisode recorded.
--- OUTSIDE RECORDS SUMMARY | 2024-09-26 13:23 | XMS_ITS | Clinical Summary ---
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 Gender Identity Not on file Sexual Orientation [...] Zoster Vaccine Completed 04/06/2021, 01/27/2021 Insurance IDPA [facility] MEDICARE ADVANTAGE [place] [facility] MEDICARE ADVANTAGE [facility] MEDICARE ADVANTAGE [facility] Advance Directives For more information, please contact: [phone] * Full Code (Latest Code Status on File) Date Activated Date Inactivated Comments 02/09/2022 9:51 PM 02/12/2022 5:52 PM Care Teams Parking Attendant Relationship Specialty Start Date End Date Jimmy Doyle DO [address] [place] [phone] PCP - General Family Medicine 02/12/22 Derrell Varma MD [address] [place] [address] Surgeon Surgery 02/12/22
--- OUTSIDE RECORDS SUMMARY | 2024-09-26 13:23 | XMS_ITS | Clinical Summary ---
Author Organization [facility] Address [address] [place] [address] Care Team Providers Care Oleomargarine Maker Name Role Phone Unavailable Primary Care Provider Unavailabl e Source Comments [facility],non-owned Affiliates and Associated Physician Practices is amultiple site organization consisting of ambulatory clinics and hospital sitesin [place], [place], [place] and [place]. This disclosure is being madepursuant to the Care Everywhere program and may not contain all information available regarding this patient. 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
== END 2024-09-26 11:14 | disposition home or self-care (01) ==
LOC: ANHLAB 11:15
PROVIDERS: PCP Student in an Organized Health Care Education/Training Program; Visit Provider Urology
DX: C65.1 Malignant neoplasm of right renal pelvis (principal)
CPT/HCPCS: 36415; 80048; 85025

== ENCOUNTER 2024-09-27 02:20 | Day surgery (SDC) | payer MEDICARE, MEDICAID, SELFPAY ==
--- NOTE | 2024-09-12 14:59 | PC.NURSE ---
Report to the Outpatient Waiting Room, entrance under the green pavilion located off [facility], at time __10 AM on date __09/27/24 . Planned Procedure Time: _1200 NOON .? Time changes happen often and if your time is changed the preop area will call you the afternoon before. - You and your visitor will be asked to self-screen and do not enter if you have any COVID symptoms. Please call surgeon if you need to reschedule. - A mask is optional within the hospital at this time. Patients may have clear liquids (water, carbonated beverages, clear teas, apple juice) until 3 hours prior to surgery ( 9AM) with a maximum of 20 ounces. - No food from midnight until time of surgery and no smoking, or chewing tobacco (or any form of nicotine). No chewing gum, candy or mints. - Take only the following medications with a SIP of water on the morning of surgery: _ALPRAZOLAM,CARVEDILOL,HYDROCODONE IF NEEDED FOR PAIN,VENLAFAXINE, ISOSORBIDE,RANOLAZINE DO NOT STOP ANY OF YOUR OTHER PRESCRIPTION MEDICATIONS PRIOR TO SURGERY EXCEPT THE FOLLOWING Hold all vitamins and supplements for 3 days per anesthesiologist.LAST DOSE 09/23/24 Medications to discontinue per physician PATIENT STATES HOLD ASPIRIN 7 DAYS PRE OP PER PARRES Date to take last dose___09/19/24 Please no make-up, nail thai, hairspray, perfume, deodorant, or body powder the day of surgery.? No jewelry (including any body piercings) or valuables the day of surgery, leave them at home.? Please take a shower or bath the night before, or the morning of, surgery with an antibacterial soap.? Wear comfortable, loose fitting clothing.? Children are encouraged to wear pajamas. - Jewelry must be removed prior to entering the operating room.? Rings and piercings that are not removed may be cut off. - The hospital will not accept responsibility for valuables.? - Please leave all valuables, including medications, at home the day of surgery. If you are going home after surgery, a licensed flatbed company driver must drive you home.? - NO public transportation without another adult if you receive anesthesia. - We recommend that an adult stay with you for 24 hours following discharge. - We also recommend that you do not drive, make important decision, drink alcoholic beverages, or take any drugs that were not prescribed by your health care provider for at least 24 hours after your discharge time. For Pediatric surgeries, we recommend two adults accompany the child home. Follow any additional instructions given to you from your surgeon. Telephone instructions given to __PATIENT and asked if any additional questions and then verbalized understanding. Patient advised to call surgeon office or pre surgery nurse liaison [phone] if any additional questions.
[2024-09-12 15:11] VITALS: BMI 22.7
--- NOTE | 2024-09-25 08:22 | PM.HPGS ---
History of Present Illness History of Present Illness Consent: Risks, benefits, and alternatives have been discussed and questions answered. Patient agrees to proceed with procedure. 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 She has undergone laser ablation. Follow-up surveillance cystoscopy and ureteroscopy showed a recurrence in the bladder and only a small area of concern near the right UPJ. It was again ablated. After discussion of options she has elected to proceed with cystoscopy with retrograde pyelography and a course of Jelmyto instilation. She is aware the risk including, but not limited to, recurrent neoplasm with need for further therapy, hematuria, ureteral stricture. Review of Systems Review of Systems: All systems reviewed & are unremarkable except as noted in HPI and below PMFSH Past Medical History Medical History Emphysema lung Screening for colon cancer Screening for breast cancer Postmenopausal Hx of pancreatitis Depression Kidney stones Kidney disease Urinary frequency High cholesterol Pneumonia Vision abnormalities Weight gain Cholecystectomy planned Anxiety Surgical History Surgical History H/O excision of mass 11/22/22 Excision of 5 cm perianal cyst History of cholecystectomy Hx of tonsillectomy History of partial hysterectomy H/O colonoscopy History of esophagogastroduodenoscopy (EGD) History of laryngoscopy Family History Family History Sibling Patient's brother is in good health Dementia Mother Family history of coronary artery disease Acute myocardial infarction Father Patient's father is Acute myocardial infarction Cerebrovascular accident Unknown Heart disease Cerebrovascular accident Other Family history of mental disorder Social History Social History Smoking packs per day: 1 Smoking cigarettes per day: 20.0 Years smoked: 52 Smoking pack-years: 52.00 Smoking status: Current every day smoker Tobacco type: cigarettes Second hand tobacco smoke exposure: No Alcohol intake: never Substance use: current Substance use type: marijuana Other substance usage details: Daily Last use: 09/12/24 Lack of Transportation: No Lack of Food: Never True Current Housing: I Have Housing Concerned About Future Housing: No Difficulty Paying Gas/Electric Bills: No Difficulty Paying for Meds: No Currently Unemployed: No Education: Decline to Answer Difficulty w/ Childcare or Family Care: No Living arrangements: alone Spiritual care concerns: No Meds Home Medications and Allergies Home Medications ?Medication ?Instructions ?Recorded ?Confirmed ?Type aspirin 81 mg tablet,delayed 81 mg PO DAILY 04/05/19 09/20/24 History release (Aspir-) hydrochlorothiazide 25 mg tablet 25 mg PO DAILY #90 tabs 08/27/20 09/20/24 Rx atorvastatin 40 mg tablet (Lipitor) 40 mg PO HS 01/10/21 09/20/24 History bupropion HCl 150 mg 24 hr tablet, 150 mg PO HS 01/10/21 09/20/24 History extended release (Wellbutrin XL) isosorbide mononitrate 30 mg 90 mg PO QACLUNCH 01/10/21 09/20/24 History tablet,extended release 24 hr nitroglycerin 0.4 mg sublingual 0.4 mg sublingual PRN CHEST PAIN 01/10/21 09/20/24 History tablet potassium chloride 10 mEq 10 meq PO DAILY 01/10/21 09/20/24 History tablet,extended release (K-Tab) venlafaxine 150 mg See Rx Instructions .Route .COMPLEX 03/02/22 09/20/24 History capsule,extended release 24 hr (Effexor XR) ranolazine 500 mg tablet,extended 500 mg PO Q12HR 30 days #60 tabs 03/04/22 09/20/24 Rx release,12 hr (Ranexa) cholecalciferol (vitamin D3) 125 125 mcg PO DAILY 11/12/22 09/20/24 History mcg (5,000 unit) tablet (Vitamin D3) hydrocodone 10 mg-acetaminophen 1 tablet PO PRN PRN pain 06/18/24 09/20/24 History 325 mg tablet oxybutynin chloride 10 mg 10 mg PO HS 06/18/24 09/20/24 History tablet,extended release 24 hr alprazolam 0.5 mg tablet 0.5 mg PO TID PRN anxiety 07/30/24 09/20/24 History carvedilol 12.5 mg tablet 12.5 mg PO BID 07/30/24 09/20/24 History cephalexin 500 mg capsule 500 mg PO Q8H #15 caps 08/09/24 09/20/24 Rx hydrocodone 5 mg-acetaminophen 325 1 - 2 tablet PO Q6H PRN pain #20 08/09/24 09/20/24 Rx mg tablet tabs mirabegron 50 mg tablet,extended 50 mg PO DAILY #30 tabs 08/09/24 09/20/24 Rx release 24 hr (Myrbetriq) ondansetron 4 mg disintegrating 4 mg PO Q6H PRN nausea and 08/14/24 09/20/24 Rx tablet vomiting #10 tabs icosapent ethyl 1 gram capsule 2 g PO BID 09/12/24 09/20/24 History quetiapine 300 mg tablet (Seroquel) 300 mg PO HS 09/12/24 09/20/24 History tolterodine 2 mg tablet 2 mg PO Q12H 09/12/24 09/20/24 History Allergies Allergy/AdvReac Type Severity Reaction Status Date / Time amitriptyline (From [facility]) Allergy Unknown Confusion Verified 09/20/24 14:54 Penicillins Allergy Unknown Rash Verified 09/20/24 14:54 Sulfa (Sulfonamide Allergy Unknown Hives Verified 09/20/24 14:54 Antibiotics) sulfanilamide Allergy Unknown Hives Verified 09/20/24 14:54 ciprofloxacin AdvReac Intermediate Shakiness Verified 09/20/24 14:54 codeine AdvReac Unknown N/V Verified 09/20/24 14:54 tetracycline AdvReac Unknown Nausea Verified 09/20/24 14:54 doxycycline AdvReac Nausea and Verified 09/20/24 14:54 Vomiting Exam Const: General: no acute distress Resp: Effort & Inspection: normal respiratory effort GI: Inspection: non-distended GI Palp: No abdominal tenderness and No Guarding due to palpation present (GI) Auscultation: normal bowel sounds Assessment and Plan Assessment and plan (1) 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
[2024-09-27] VITALS (8 sets, daily range): BP systolic 125–149; BP diastolic 62–69; PULSE 67–76; RESP 8–18; TEMP 36.4–36.5; O2SAT 95–100
--- NOTE | ~2024-09-27 | XR_ITS ---
EXAMINATION: XR retrograde pyelo w/stent RT DATE: 09/27/2024 12:51 INDICATION: Right internal ureteral stent placement TECHNIQUE: Fluoroscopic images from a right internal ureteral stent placement are submitted for anne-marie blood 41 seconds of fluoroscopy time. FINDINGS: There is a right double-J internal ureteral stent projecting in expected position, with proximal Lewis loop at the level of the renal pelvis and distal loop in the pelvis within the bladder lumen. IMPRESSION: 1. Right internal ureteral stent placement. Please refer to real-time procedural findings for nahid ls. Reviewed, dictated and finalized at location B. IMPRESSION: 1. Right internal ureteral stent placement. Please refer to real-time procedu ral findings for details.
--- OUTSIDE RECORDS SUMMARY | 2024-09-27 02:24 | XMS_ITS | Clinical Summary ---
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 Gender Identity Not on file Sexual [...] Zoster Vaccine Completed 04/06/2021, 01/27/2021 Insurance IDPA [facility] MEDICARE ADVANTAGE [place] [facility] MEDICARE ADVANTAGE [facility] MEDICARE ADVANTAGE [facility] Advance Directives For more information, please contact: [phone] * Full Code (Latest Code Status on File) Date Activated Date Inactivated Comments 02/09/2022 9:51 PM 02/12/2022 5:52 PM Care Teams Senior Engineering Manager Relationship Specialty Start Date End Date Jimmy Doyle DO [address] [place] [address] [phone] PCP - General Family Medicine 02/12/22 Derrell Varma MD [address] [place] [address] Surgeon Surgery 02/12/22
--- OUTSIDE RECORDS SUMMARY | 2024-09-27 02:24 | XMS_ITS | Encounter Summary ---
Author Organization [facility] Address [address] [place] [address] Care Team Providers Care Jacquard Card Lacer Name Role Phone Unavailable Primary Care Provider Unavailabl e Encounter Details Date Type Department Care Team (Late st Contact Info) Description 01/28/2022 Lab Requisition [facility] [address] [place] [address] Kathy Mason MD [address] [place], [place] [id number] Illness, unspecified Social History Tobacco Use Types Packs/Day Years Used Date Smoking Tobacco: Never Assessed Comments Unknown Sex and Gender Information Value Date Recorded Sex Assigned at Not on file 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 01/28/2022 12:22 PM CDT [facility] Clinical History HEMATURIA 01/28/2022 12:22 PM CDT [facility] Materials Received One thin prep slide received from [facility] [id number]. All material will be returned. 01/28/2022 12:22 PM CDT [facility] Disclaimer The performance characteristics of all immunohistochemical and indirect immunofluorescence stains (if any) cited in this report were determined by the Histopathology Laboratory of [facility]. Some of these tests were developed by [...] (teaching) pathologist. 01/28/2022 12:22 PM CDT [facility] Case Report Surgical Pathology Report Case: [id number] Authorizing Provider: Kathy Mason MD Collected: 01/28/2022 10:46 AM Ordering Location: [facility] Received: 01/28/2022 10:51 AM Pathologist: Flaquito Bruno MD Specimen: Slide Consultation 01/28/2022 12:22 PM CDT [facility] Embedded Images 01/28/2022 12:22 PM CDT [facility] Pathology/Cytolo gy SURGICAL PATHOLOGY CONSULTATION AND REPORT ON REFERRED SLIDES PREPARED ELSEWHERE / Unknown 01/28/2022 10:46 AM CDT 01/28/2022 10:51 AM CDT Kathy Mason MD LAB - PATHOLOGY/CYTOLOGY ORDERAB LES Final Result [facility] [address] [facility] [place] [address], [facility] [phone] documented in this encounter Visit Diagnoses Diagnosis Illness, unspecified documented in this encounter
--- OUTSIDE RECORDS SUMMARY | 2024-09-27 02:24 | XMS_ITS | Clinical Summary ---
Author Organization [facility] Address [address] [address] Care Team Providers Care Studio Receptionist Name Role Phone Unavailable Primary Care Provider Unavailabl e Source Comments [facility],non-owned Affiliates and Associated Physician Practices is amultiple site organization consisting of ambulatory clinics and hospital sitesin [place], [place], [place] and [place]. This disclosure is being madepursuant to the Care Everywhere program and may not contain all information available regarding this patient. 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
--- OUTSIDE RECORDS SUMMARY | 2024-09-27 02:24 | XMS_ITS | Referral Summary ---
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 Gender Identity Not on file Sexual Orientation [...] of Treatment Not on file Insurance [facility]PA [facility] MEDICARE ADVANTAGE [facility] MEDICARE ADVANTAGE [facility] MEDIC[facility] ADVANTAGE IDPA Advance Directives For more information, please contact: [phone] * Full Code (Latest Code Status on File) Date Activated Date Inactivated Comments 02/09/2022 9:51 PM 02/12/2022 5:52 PM Care Teams Paint Line Production Supervisor Relationship Specialty Start Date End Date Jimmy Doyle DO [address] [place] [id number] PCP - General Family Medicine 02/12/22 Derrell Varma MD [address] [place] [address] Surgeon Surgery 02/12/22
--- OUTSIDE RECORDS SUMMARY | 2024-09-27 02:24 | XMS_ITS | Continuity of Care Document ---
Author Organization [facility] Address [address] [place] [address] [address] [place] [address] Phone Care Team Providers Care Event Marketing Representative Name Role Phone Idris PT, KEYON, Ave Unavailable Unavailable Procedures Procedure Date Therapeutic Exercise Therapeutic Activities Neuromuscular Re-Ed Hot or Cold Pack Therapeutic Activities Neuromuscular Re-Ed PT Evaluation Low Complexity Advance Directives Directive Yes / No Effective Date File Name No Information Encounters Encounter Description Practice Location Reason(s) For Visit Diagnoses Date Provider Providers Copied on Encounter [facility] [address], [id number], tel:[phone] [place] No Information Sep-0 1 Idris Dorado. . [facility] [address] [place] [address], [id number], tel:[phone] [place] No Information Sep-0 2 1 Idris Dorado. . Referring Provider: Jimmy Doyle , [address] [place] [address], [id number]. tel:[phone], [id number], tel:[phone] [place] No Information Nov-3 0-202 1 Idris Dorado. . Referring Provider: Jimmy Doyle , [address] [place] [address], [address]. tel:[phone] Family History Family Member Type Diagnosis Age At Onset No Information Payers Payer name Insurance type Covered green party ID Authorcesiliapauline jaimetristian(s) Medicare [place] [id number] Medicaid OON Write Off CI 00 Social [...]
--- NOTE | 2024-09-27 06:56 | WPDHPUPDATE1 ---
History and Physical Update Update Date/Time: 09/27/24 06:56 History and Physical has been reviewed, including an updated exam of the patient. There are NO changes in the patient's condition. Risks, benefits, and alternatives have been discussed and questions answered. Patient agrees to proceed with procedure.
[2024-09-27] MEDS: LACTATED RINGERS 1,000 ML 30 ML IV CONT (10:30)
[2024-09-27] MEDS: SODIUM BICARBONATE TAB 650 MG TABLET 1300 MG PO (11:30)
--- NOTE | 2024-09-27 11:54 | P.PNAN_ITS ---
Anes - Initial Pre Proc Eval Procedure: Operation Date: 09/27/24 12:00 Proposed Procedures p Cystoscopy, Right Retrograde Pyelogram, Right Ureteroscopy, Jelmyto Instillation - Tacos Bowers MD Date/Time: 09/27/24 11:54 Surgeon: Tacos Bowers MD Pre Op Diagnosis: right UPJ urothelial CA Patient Data Age: 68 Gender: F Height: 1.66 m Weight: 64.5 kg Last Vital Signs Temp 36.5 C 09/27/24 11:29 Pulse 76 09/27/24 11:29 Resp 16 09/27/24 11:29 BP 149/67 H 09/27/24 11:29 Pulse Ox 95 09/27/24 11:29 O2 Del Method Room Air 09/27/24 11:29 Allergies Allergy/AdvReac Type Severity Reaction Status Date / Time amitriptyline (From Elavil) Allergy Unknown Confusion Verified 09/20/24 14:54 Penicillins Allergy Unknown Rash Verified 09/20/24 14:54 Sulfa (Sulfonamide Allergy Unknown Hives Verified 09/20/24 14:54 Antibiotics) sulfanilamide Allergy Unknown Hives Verified 09/20/24 14:54 ciprofloxacin AdvReac Intermediate Shakiness Verified 09/20/24 14:54 codeine AdvReac Unknown N/V Verified 09/20/24 14:54 tetracycline AdvReac Unknown Nausea Verified 09/20/24 14:54 doxycycline AdvReac Nausea and Verified 09/20/24 14:54 Vomiting Home Medications ?Medication ?Instructions ?Recorded ?Confirmed ?Type aspirin 81 mg tablet,delayed 81 mg PO DAILY 04/05/19 09/27/24 History release (Aspir-) hydrochlorothiazide 25 mg tablet 25 mg PO DAILY #90 tabs 08/27/20 09/20/24 Rx atorvastatin 40 mg tablet (Lipitor) 40 mg PO HS 01/10/21 09/20/24 History bupropion HCl 150 mg 24 hr tablet, 150 mg PO HS 01/10/21 09/20/24 History extended release (Wellbutrin XL) isosorbide mononitrate 30 mg 90 mg PO QACLUNCH 01/10/21 09/27/24 History tablet,extended release 24 hr nitroglycerin 0.4 mg sublingual 0.4 mg sublingual PRN CHEST PAIN 01/10/21 09/20/24 History tablet potassium chloride 10 mEq 10 meq PO DAILY 01/10/21 09/20/24 History tablet,extended release (K-Tab) venlafaxine 150 mg See Rx Instructions .Route .COMPLEX 03/02/22 09/27/24 History capsule,extended release 24 hr (Effexor XR) ranolazine 500 mg tablet,extended 500 mg PO Q12HR 30 days #60 tabs 03/04/22 09/27/24 Rx release,12 hr (Ranexa) cholecalciferol (vitamin D3) 125 125 mcg PO DAILY 11/12/22 09/20/24 History mcg (5,000 unit) tablet (Vitamin D3) hydrocodone 10 mg-acetaminophen 1 tablet PO PRN PRN pain 06/18/24 09/20/24 History 325 mg tablet oxybutynin chloride 10 mg 10 mg PO HS 06/18/24 09/20/24 History tablet,extended release 24 hr alprazolam 0.5 mg tablet 0.5 mg PO TID PRN anxiety 07/30/24 09/27/24 History carvedilol 12.5 mg tablet 12.5 mg PO BID 07/30/24 09/27/24 History cephalexin 500 mg capsule 500 mg PO Q8H #15 caps 08/09/24 09/20/24 Rx hydrocodone 5 mg-acetaminophen 325 1 - 2 tablet PO Q6H PRN pain #20 08/09/24 09/27/24 Rx mg tablet tabs mirabegron 50 mg tablet,extended 50 mg PO DAILY #30 tabs 08/09/24 09/20/24 Rx release 24 hr (Myrbetriq) ondansetron 4 mg disintegrating 4 mg PO Q6H PRN nausea and 08/14/24 09/20/24 Rx tablet vomiting #10 tabs icosapent ethyl 1 gram capsule 2 g PO BID 09/12/24 09/20/24 History quetiapine 300 mg tablet (Seroquel) 300 mg PO HS 09/12/24 09/20/24 History tolterodine 2 mg tablet 2 mg PO Q12H 09/12/24 09/20/24 History Patient hx anesthesia problems: none Family hx anesthesia problems: none Results Review: All pre-operative results and documents have been reviewed as part of the pre- operative evaluation. [facility] Past Medical History Medical History Emphysema lung Screening for colon cancer Screening for breast cancer Postmenopausal Hx of pancreatitis Depression Kidney stones Kidney disease Urinary frequency High cholesterol Pneumonia Vision abnormalities Weight gain Cholecystectomy planned Anxiety Surgical History Surgical History H/O excision of mass 11/22/22 Excision of 5 cm perianal cyst History of cholecystectomy Hx of tonsillectomy History of partial hysterectomy H/O colonoscopy History of esophagogastroduodenoscopy (EGD) History of laryngoscopy Family History Family History Sibling Patient's brother is in good health Dementia Mother Family history of coronary artery disease Acute myocardial infarction Father Patient's father is Acute myocardial infarction Cerebrovascular accident Unknown Heart disease Cerebrovascular accident Other Family history of mental disorder Social History Social History Smoking packs per day: 1 Smoking cigarettes per day: 20.0 Years smoked: 52 Smoking pack-years: 52.00 Smoking status: Current every day smoker Tobacco type: cigarettes Second hand tobacco smoke exposure: No Alcohol intake: never Substance use: current Substance use type: marijuana Other substance usage details: Daily Last use: 09/12/24 Lack of Transportation: No Lack of Food: Never True Current Housing: I Have Housing Concerned About Future Housing: No Difficulty Paying Gas/Electric Bills: No Difficulty Paying for Meds: No Currently Unemployed: No Education: Decline to Answer Difficulty w/ Childcare or Family Care: No Living arrangements: alone Spiritual care concerns: No Anes - Eval Final PreProcedure Day of Procedure 09/27/24 11:54 Patient weight: normal Heart: regular rate and rhythm Lungs: clear to auscultation Airway: Mallampati scale class II Neurological: alert and oriented Last oral intake: >/= 8 hours ASA classification: IV Emergent: no Anesthetic plan: proceed Anesthesia type and monitoring: general LMA and standard monitoring Results Review: All pre-operative results and documents have been reviewed as part of the pre- operative evaluation. Informed Consent: The patient's anesthetic plan and its attendant risks and benefits were discussed with the patient/family/POA. Questions were solicited and answers provided to the satisfaction of the patient/family/POA.
[2024-09-27] MEDS: ceFAZolin 2 GM/D5W 50 ML 2 GM/50 ML BAG IVPB (12:10)
[2024-09-27] MEDS: MITOMYCIN URETHRAL (12:30)
--- NOTE | 2024-09-27 12:33 | SUR.OPER ---
36mg/9mL instilled, 44mg/11mL wasted
--- NOTE | 2024-09-27 12:50 | W.PM.PROC2 ---
Procedure Note - Detailed Date of Procedure 09/27/24 Pre-op Diagnosis Right UPJ urothelial carcinoma Post-op Diagnosis Same Procedure Performed Xystoscopy, right ureteral stent removal, right retrograde pyelogram, installation of Jelmyto and right renal pelvis Surgeon Tacos Bowers MD Anesthesia General Description of Procedure Patient is brought to the operative suite where she was prepped and draped in routine sterile fashion while in dorsal lithotomy position after the uneventful induction of a general LMA anesthetic. A 19F rigid cystoscope was placed in her bladder. The bladder was carefully inspected. Mucosa is normal without hyperemia. There was no intravesical neoplasm. There is an indwelling right ureteral stent which is grasped and brought to the external urethral meatus. 0.035 in glidewire was advanced in the right renal pelvis and a ureteral catheter was advanced over the guidewire. so to obtain a determination of the volume of the right renal pelvis I carefully performed 3 separate retrograde pyelograms and took an average volume to fill without overfilling/extravasation. Between each pyelogram contrast was allowed to drain thoroughly. The average volume of her renal pelvis was calculated at 9ml. After appropriate reconstitution of the Jelmyto in ice retrograde injection was undertaken through the same ureteral catheter positioned at the UPJ. A total of 9mL (36 mg) of Jelmyto was instilled in the renal pelvis without incident. The volume of Jelmyto wasted was 11 mL (44 mg). the ureteral catheter was allowed to stand for 60 seconds and then removed with ease. Because the patient has no history of ureteral stricture I opted not to place a ureteral stent. She tolerated the procedure well was taken to the recovery room in good condition. Drains No Pathology None sent Complications No immediate complications Condition Stable Disposition PACU
== END 2024-09-27 14:02 | disposition home or self-care (01) ==
PROVIDERS: PCP Student in an Organized Health Care Education/Training Program; Visit Provider Urology
PROC: (CPT 52352; principal; 2024-09-27 12:00)
DX: C65.1 Malignant neoplasm of right renal pelvis (principal); C66.1 Malignant neoplasm of right ureter
CPT/HCPCS: C9789; 74420; A9270; C1769; J0690; J1100; J2003; J2405; J2704; J3010; J7120; J9281; Q9966

== ENCOUNTER 2024-10-04 01:52 | Day surgery (SDC) | payer MEDICARE, MEDICAID, SELFPAY ==
[2024-09-20 13:20] VITALS: BMI 22.7
--- NOTE | 2024-09-20 13:31 | PC.NURSE ---
STATES NO CHANGE IN HEALTH HX RECEIVING JELMYTO INSTILLATION ONCE A WK X 6WKS
--- NOTE | 2024-09-20 13:32 | PC.NURSE ---
Report to the Outpatient Waiting Room, entrance under the green pavilion located off [facility], at time _6:30 AM on date _10/04/24 . Planned Procedure Time: __8:30 AM .? 10/11/24 ARRIVE AT 9AM FOR 11 AM SURGERY 10/16/24 ARRIVE AT 10 AM FOR 1200 NOON SURGERY 10/25/24 ARRIVE AT 9AM FOR 11 AM SURGERY 11/01/24 ARRIVE AT 10 AM FOR 1200 NOON SURGERY Time changes happen often and if your time is changed the preop area will call you the afternoon before. - You and your visitor will be asked to self-screen and do not enter if you have any COVID symptoms. Please call surgeon if you need to reschedule. - A mask is optional within the hospital at this time. Patients may have clear liquids (water, carbonated beverages, clear teas, apple juice) until 3 hours prior to surgery with a maximum of 20 ounces. - No food from midnight until time of surgery and no smoking, or chewing tobacco (or any form of nicotine). No chewing gum, candy or mints. Take only the following medications with a SIP of water on the morning of surgery: __ALPRAZOLAM,CARVEDILOL,HYDROCODONE IF NEEDED FOR PAIN,VENLAFAXINE,RANOLAZINE DO NOT STOP ANY OF YOUR OTHER PRESCRIPTION MEDICATIONS PRIOR TO SURGERY EXCEPT THE FOLLOWING Hold all vitamins and supplements for 3 days per anesthesiologist. Medications to discontinue per physician __ASPIRIN ON HOLD SINCE 09/19/24 Date to take last dose Please no make-up, nail albanian, hairspray, perfume, deodorant, or body powder the day of surgery.? No jewelry (including any body piercings) or valuables the day of surgery, leave them at home.? Please take a shower or bath the night before, or the morning of, surgery with an antibacterial soap.? Wear comfortable, loose fitting clothing.? Children are encouraged to wear pajamas. - Jewelry must be removed prior to entering the operating room.? Rings and piercings that are not removed may be cut off. - The hospital will not accept responsibility for valuables.? - Please leave all valuables, including medications, at home the day of surgery. If you are going home after surgery, a licensed route sales delivery drivers supervisor must drive you home.? - NO public transportation without another adult if you receive anesthesia. - We recommend that an adult stay with you for 24 hours following discharge. - We also recommend that you do not drive, make important decision, drink alcoholic beverages, or take any drugs that were not prescribed by your health care provider for at least 24 hours after your discharge time. For Pediatric surgeries, we recommend two adults accompany the child home. Follow any additional instructions given to you from your surgeon. Telephone instructions given to ___PATIENT and asked if any additional questions and then verbalized understanding. Patient advised to call surgeon office or pre surgery nurse liaison [phone] if any additional questions.
--- NOTE | 2024-10-02 07:21 | HP_ITS ---
This report was moved to the correct visit on 10/04/2024. The original report was signed by Tacos Bowers MD on 10/02/24 9351. History of Present Illness History of Present Illness Consent: Risks, benefits, and alternatives have been discussed and questions answered. Patient agrees to proceed with procedure. Chief complaint: right urothelial CA Narrative: Jeniffer Weller is a 68 year old female recently found to have low-grade papillary urothelial carcinoma the right upper urinary tract. She has undergone laser ablation. Follow-up surveillance cystoscopy and ureteroscopy showed a recurrence in the bladder and only a small area of concern near the right UPJ. It was again ablated. After discussion of options she has elected to proceed with cystoscopy with retrograde pyelography and a course of Jelmyto instilation. She is aware the risk including, but not limited to, recurrent neoplasm with need for further therapy, hematuria, ureteral stricture. Review of Systems Review of Systems: All systems reviewed & are unremarkable except as noted in HPI and below PMFSH Past Medical History Medical History Emphysema lung Screening for colon cancer Screening for breast cancer Postmenopausal Hx of pancreatitis Depression Kidney stones Kidney disease Urinary frequency High cholesterol Pneumonia Vision abnormalities Weight gain Cholecystectomy planned Anxiety Surgical History Surgical History H/O excision of mass 11/22/22 Excision of 5 cm perianal cyst History of cholecystectomy Hx of tonsillectomy History of partial hysterectomy H/O colonoscopy History of esophagogastroduodenoscopy (EGD) History of laryngoscopy Family History Family History Sibling Patient's brother is in good health DementiaMother Family history of coronary artery disease Acute myocardial infarctionFather Patient's father is Acute myocardial infarction Cerebrovascular accidentUnknown Heart disease Cerebrovascular accidentOther Family history of mental disorder Social History Social History Smoking packs per day: 1 Smoking cigarettes per day: 20.0 Years smoked: 52 Smoking pack-years: 52.00 Smoking status: Current every day smoker Tobacco type: cigarettes Second hand tobacco smoke exposure: No Alcohol intake: never Substance use: current Substance use type: marijuana Other substance usage details: Daily Last use: 09/12/24 Lack of Transportation: No Lack of Food: Never True Current Housing: I Have Housing Concerned About Future Housing: No Difficulty Paying Gas/Electric Bills: No Difficulty Paying for Meds: No Currently Unemployed: No Education: Decline to Answer Difficulty w/ Childcare or Family Care: No Living arrangements: alone Spiritual care concerns: No Meds Home Medications and Allergies Home Medications ?Medication ?Instructions ?Recorded ?Confirmed ?Type aspirin 81 mg tablet,delayed 81 mg PO DAILY 04/05/19 09/27/24 History release (Aspir-) hydrochlorothiazide 25 mg tablet 25 mg PO DAILY #90 tabs 08/27/20 09/20/24 Rx atorvastatin 40 mg tablet (Lipitor) 40 mg PO HS 01/10/21 09/20/24 History bupropion HCl 150 mg 24 hr tablet, 150 mg PO HS 01/10/21 09/20/24 History extended release (Wellbutrin XL) isosorbide mononitrate 30 mg 90 mg PO QACLUNCH 01/10/21 09/27/24 History tablet,extended release 24 hr nitroglycerin 0.4 mg sublingual 0.4 mg sublingual PRN CHEST PAIN 01/10/21 09/20/24 History tablet potassium chloride 10 mEq 10 meq PO DAILY 01/10/21 09/20/24 History tablet,extended release (K-Tab) venlafaxine 150 mg See Rx Instructions .Route .COMPLEX 03/02/22 09/27/24 History capsule,extended release 24 hr (Effexor XR) ranolazine 500 mg tablet,extended 500 mg PO Q12HR 30 days #60 tabs 03/04/22 09/27/24 Rx release,12 hr (Ranexa) cholecalciferol (vitamin D3) 125 125 mcg PO DAILY 11/12/22 09/20/24 History mcg (5,000 unit) tablet (Vitamin D3) hydrocodone 10 mg-acetaminophen 1 tablet PO PRN PRN pain 06/18/24 09/20/24 History 325 mg tablet oxybutynin chloride 10 mg 10 mg PO HS 06/18/24 09/20/24 History tablet,extended release 24 hr alprazolam 0.5 mg tablet 0.5 mg PO TID PRN anxiety 07/30/24 09/27/24 History carvedilol 12.5 mg tablet 12.5 mg PO BID 07/30/24 09/27/24 History cephalexin 500 mg capsule 500 mg PO Q8H #15 caps 08/09/24 09/20/24 Rx hydrocodone 5 mg-acetaminophen 325 1 - 2 tablet PO Q6H PRN pain #20 08/09/24 09/27/24 Rx mg tablet tabs mirabegron 50 mg tablet,extended 50 mg PO DAILY #30 tabs 08/09/24 09/20/24 Rx release 24 hr (Myrbetriq) ondansetron 4 mg disintegrating 4 mg PO Q6H PRN nausea and 08/14/24 09/20/24 Rx tablet vomiting #10 tabs icosapent ethyl 1 gram capsule 2 g PO BID 09/12/24 09/20/24 History quetiapine 300 mg tablet (Seroquel) 300 mg PO HS 09/12/24 09/20/24 History tolterodine 2 mg tablet 2 mg PO Q12H 09/12/24 09/20/24 History Allergies Allergy/AdvReac Type Severity Reaction Status Date / Time amitriptyline (From Elavil) Allergy Unknown Confusion Verified 09/20/24 14:54 Penicillins Allergy Unknown Rash Verified 09/20/24 14:54 Sulfa (Sulfonamide Allergy Unknown Hives Verified 09/20/24 14:54 Antibiotics) sulfanilamide Allergy Unknown Hives Verified 09/20/24 14:54 ciprofloxacin AdvReac Intermediate Shakiness Verified 09/20/24 14:54 codeine AdvReac Unknown N/V Verified 09/20/24 14:54 tetracycline AdvReac Unknown Nausea Verified 09/20/24 14:54 doxycycline AdvReac Nausea and Verified 09/20/24 14:54 Vomiting Exam Const: General: no acute distress Resp: Effort & Inspection: normal respiratory effort GI: Inspection: non-distended GI Palp: No abdominal tenderness and No Guarding due to palpation present (GI) Auscultation: normal bowel sounds Assessment and Plan Assessment and plan (1) 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 It is intended for [id number] communication. It is written in medical language and may contain unfamiliar abbreviations or verbiage. Medical documents are intended to carry relevant information, facts as evident, and the clinical opinion of the practitioner at the time of the encounter. This report may have been done utilizing a voice recognition system. Attempts have been made to correct errors. However, there may be uncorrected grammatical, spelling, and recognition errors present. The file time of this note does not necessarily represent the time the patient was seen. Report Initialized date/time: Tacos Bowers MD 10/02/2421 Electronically signed by: Tacos Bowers MD 10/02/24 0721
[2024-10-04] VITALS (7 sets, daily range): BP systolic 130–166; BP diastolic 60–98; PULSE 67–78; RESP 12–20; TEMP 36.4–36.9; O2SAT 95–100
--- NOTE | ~2024-10-04 | XR_ITS ---
INTRAOPERATIVE FLUOROSCOPY: CLINICAL HISTORY: 68 years old Female; RIGHT RETRO PROCEDURE COMMENTS: Limited intraoperative fluoroscopy of the retroperitoneum was performed. CUMULATIVE DOSE: 4.7 mGy FLUOROSCOPY TIME: 19 seconds FINDINGS/IMPRESSION: Please refer to operative note for further details. Reviewed, dictated and finalized at location A.
--- OUTSIDE RECORDS SUMMARY | 2024-10-04 02:00 | XMS_ITS | Encounter Summary ---
Author Organization [facility] Address [facility] [place] [address] Care Team Providers Care Tafe Lecturer Name Role Phone Jimmy Doyle Primary Care Provider + Reason for Visit * Reason Comments Procedure (SCAN) Encounter Details Date Type Department Care Team ([facility] Contact Info) Description 09/27/2024 Scan HEALTH INFO [facility] Scanned, Doc [facility] Procedure (SCAN) Social History Tobacco Use Types Packs/Day Years Used Date Smoking Tobacco: Every Day Cigarettes 1 55.1 Started: 08/19/1969 Smokeless Tobacco: Never Comments:trying to quit. 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 Alcohol Use Standard Drinks/Week Comments Never [...] Sex Assigned at Female 05/03/2024 9:57 AM DUTY OFFICER Legal Sex Female 4:45 PM CDT Gender Identity Female 05/03/2024 9:57 AM DUTY OFFICER Sexual Orientation Not on file documented as [...] Care Team (Late st Contact Info) Description 11/05/2024 10:20 AM CDT Office Visit [facility] Family & Internal Medicine - [address] [phone] Jimmy Doyle DO [address] [place] [address] 03/22/2025 11:45 AM DUTY OFFICER Office Visit [facility] [phone] Abhi Aguilar MD [address] [place] [address] [place] [phone] documented as of this encounter Goals Goal Patient Goal Type Associated Problems Recent Progress Patient-Stated? Author Patient will return to prior living situation and remain independent in ADLs upon discharge from [facility] General Daysi Nayak RN documented as of this encounter Procedures Procedure Name Priority Date/Time Associated Diagnosis Comments PROCEDURE GENERIC (SCAN ORDER) 09/27/2024 PROCEDURE GENERIC (SCAN ORDER) 09/27/2024 documented in this encounter Results * PROCEDURE GENERIC (SCAN ORDER) (09/27/2024) 09/27/2024 us [facility] Scanned SCANNING Final Resu lt * PROCEDURE GENERIC (SCAN ORDER) (09/27/2024) 09/27/2024 us [facility] Scanned SCANNING Final Resu lt documented in this encounter Visit Diagnoses Not on filedocumented in this encounter Additional Health Concerns Assessment Noted Time PHQ-9 Depression Total Score: 10 05/03/ 025 9:55 AM DUTY OFFICER documented as of this encounter Care Teams Tafe Lecturer Relationship Specialty Start Date End Date Jimmy Doyle DO [address] [place] [phone] PCP - General FAMILY PRACTICE 08/19/20 documented as of this encounter
--- OUTSIDE RECORDS SUMMARY | 2024-10-04 02:00 | XMS_ITS | Encounter Summary ---
Author Organization [facility] Address [facility] [place] [address] Care Team Providers Care Campaign Assistant Name Role Phone New Referring, Provider Primary Care Provider Un available Jimmy Doyle DO Primary Care Provider + Encounter Details Date Type Department Care Team (Latest Contact Info) Description 12/12/2017 Abstract [facility] , Farhana Aguilera MD Social History Tobacco Use Types Packs/Day Years Used Date Smoking Tobacco: Never Assessed Comments Unknown Sex and Gender Information Value Date Recorded Sex Assigned at Female 05/03/2024 9:57 AM BOOK MENDER Legal Sex Female 4:45 PM CDT Gender Identity Female 05/03/2024 9:57 AM BOOK MENDER Sexual Orientation Not on file documented as of this encounter Plan of Treatment Upcoming Encounters Date Type Department Care Team (Late st Contact Info) Description 11/05/2024 10:20 AM CDT Office Visit [facility] Family & Internal Medicine - [address] [address] Jimmy Doyle DO [address] [place] [address] 03/22/2025 11:45 AM BOOK MENDER Office Visit [facility] [phone] Abhi Aguilar MD [address] [place] [phone] documented as of this encounter Visit Diagnoses Not on filedocumented in this encounter Additional Health Concerns Infection Onset Date Last Indicated Resolved Time COVID-19 Rule Out 01/13/2022 01/13/2022 01/13/2022 9:32 AM CDT COVID-19 Rule Out 01/13/2022 01/13/2022 01/13/2022 9:59 AM CDT COVID-19 Rule Out 01/27/2023 01/27/2023 01/27/2023 11:28 AM CDT documented as of this encounter Care Teams Campaign Assistant Relationship Specialty Start Date End Date New Referring, Provider PCP - General UNKNOWN PHYSICIAN SPECIALTY 01/25/18 08/18/20 Jimmy Doyle DO [address] [place] [id number] PCP - General FAMILY PRACTICE 08/19/20 documented as of this encounter
--- OUTSIDE RECORDS SUMMARY | 2024-10-04 02:00 | XMS_ITS | Encounter Summary ---
Author Organization [facility] Address [facility] [place] [address] Care Team Providers Care Fire Prevention Inspector Name Role Phone Jimmy Doyle DO Primary Care Provider + Encounter Details Date Type Department Care Team (Late st Contact Info) Description 06/23/2022 Prep for Procedure [facility], [facility] [address] [place], [place] [id number] Flaquito Valera MD Three [facility]. [facility] [address] [place], [place] [id number] Social History Tobacco Use Types Packs/Day Years Used Date Smoking Tobacco: Every Day Cigarettes 1 55.1 Started: 08/19/1967 Smokeless Tobacco: Never Comments:trying to quit. 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 No / Unsure 06/24/2022 12:41 PM PRINT PRODUCTION ASSOCIATE documented as of this encounter Functional Status [...] things Not at all 06/24/2022 1:19 PM PRINT PRODUCTION ASSOCIATE Adia Mckenna MA Active Feeling down, depressed, or hopeless Nearly every day 06/24/2022 1:19 PM PRINT PRODUCTION ASSOCIATE Adia Mckenna MA Active Patient Health Questionnaire-2 Score 3 06/24/2022 1:19 PM PRINT PRODUCTION ASSOCIATE Adia Mckenna MA Active documented as of [...] Description 11/05/2024 10:20 AM CDT Office Visit [facility] Family & Internal Medicine [address] [address] Jimmy Doyle DO [address] [place] [address] 03/22/2025 11:45 AM PRINT PRODUCTION ASSOCIATE Office Visit [facility] [address] [place] [phone] Abhi Aguilar MD [address] [facility] [address] [place] [phone] documented as of this encounter Goals Goal [...] Total Score: 8 05/13/19 22 10:36 AM PRINT PRODUCTION ASSOCIATE documented as of this encounter Care Teams Fire Prevention Inspector Relationship Specialty Start Date End Date Jimmy Doyle DO [address] [place] [phone] PCP - General FAMILY PRACTICE 08/19/20 documented as of this encounter
--- OUTSIDE RECORDS SUMMARY | 2024-10-04 02:00 | XMS_ITS | Continuity of Care Document ---
Author Organization [facility] Address [address] [place] [address] [address] [place] [address] Phone Care Team Providers Care Estimator Jewelry Name Role Phone Idris PT, DPT, Ave Unavailable Unavailable Procedures Procedure Date Therapeutic Exercise Neuromuscular Re-Ed Therapeutic Activities Hot or Cold Pack PT Evaluation Low Complexity Neuromuscular Re-Ed Therapeutic Activities Advance Directives Directive Yes / No Effective Date File Name No Information Encounters Encounter Description Practice Location Reason(s) For Visit Diagnoses Date Provider Providers Copied on Encounter [facility] [address], [id number], tel:[phone] [place] No Information Sep-0 8 1 Idris Dorado. . [facility] [address] [place] [address], [id number], tel:[phone] [place] No Information Sep-0 2- 1 Idris Dorado. . Referring Provider: Jimmy Doyle , [address] [place] [address], [address]. tel:[phone], [id number], tel:[phone] [place] No Information Nov-3 0-202 1 Idris Dorado. . Referring Provider: Jimmy Doyle , [address] [place] [address], [address]. tel:[phone] Family History Family Member Type Diagnosis Age At Onset No Information Payers Payer name Insurance type Covered constitution party ID Authorcesiliapauline jamietristian(s) Medicare [place] [id number] Medicaid OON Write Off CI 00 Social [...]
--- OUTSIDE RECORDS SUMMARY | 2024-10-04 02:00 | XMS_ITS | Encounter Summary ---
Author Organization [facility] Address [address] [place] [address] Care Team Providers Care Hansard Reporter Name Role Phone Unavailable Primary Care Provider Unavailabl e Encounter Details Date Type Department Care Team (Late st Contact Info) Description 01/28/2022 Lab Requisition [facility] [address] [place] [address] Kathy Mason MD [address] [place], [place] [id number] Illness, unspecified Social History Tobacco Use Types Packs/Day Years Used Date Smoking Tobacco: Never Assessed Comments Unknown Sex and Gender Information Value Date Recorded Sex Assigned at Not on file Legal Sex Female 6:27 PM SPORTS TEAM MANAGER Gender Identity Not on file Sexual Orientation [...] 10:46 AM CDT) Final Diagnosis URINE/VOIDED (OSC: [id number]; 01/25/2022): - Negative for high grade urothelial carcinoma 01/28/2022 12:22 PM CDT [facility] at 1222 CDT Microscopic Description and Comment Microscopic examination substantiates the final diagnosis. 01/28/2022 12:22 PM CDT [facility] Clinical History HEMATURIA 01/28/2022 12:22 PM CDT [facility] Materials Received One thin prep slide received from [facility] [id number]. All material will be returned. 01/28/2022 12:22 PM CDT [facility] Disclaimer The performance [...] (teaching) pathologist. 01/28/2022 12:22 PM CDT [facility] Case Report Surgical Pathology Report Case: [id number] Authorizing Provider: Kathy Mason MD Collected: 01/28/2022 10:46 AM Ordering Location: [facility] Received: 01/28/2022 10:51 AM Pathologist: Flaquito Bruno MD Specimen: Slide Consultation 01/28/2022 12:22 PM CDT [facility] Embedded Images 01/28/2022 12:22 PM CDT [facility] Pathology/Cytolo gy SURGICAL PATHOLOGY CONSULTATION AND REPORT ON REFERRED SLIDES PREPARED ELSEWHERE / Unknown 01/28/2022 10:46 AM CDT 01/28/2022 10:51 AM CDT Kathy Mason MD LAB - PATHOLOGY/CYTOLOGY ORDERAB LES Final Result [facility] [address] [facility] [place] [address], [facility] [phone] documented in this encounter Visit Diagnoses Diagnosis Illness, unspecified documented in this encounter
--- OUTSIDE RECORDS SUMMARY | 2024-10-04 02:00 | XMS_ITS | Encounter Summary ---
Author Organization [facility] Address [facility] [place] [address] Care Team Providers Care Tinner Helper Name Role Phone Jimmy Doyle Primary Care Provider + Encounter Details Date Type Department Care Team (Late st Contact Info) Description 01/11/2022 Abstract [facility] [address] Doni Moore MA Social History Tobacco Use [...] Sex Assigned at Female 05/03/2024 9:57 AM DRY BOX TENDER Legal Sex Female 4:45 PM CDT Gender Identity Female 05/03/2024 9:57 AM DRY BOX TENDER Sexual Orientation Not on file COVID-19 Exposure [...] Description 11/05/2024 10:20 AM CDT Office Visit [facility] Family & Internal Medicine - [address] [phone] Jimmy Doyle DO [address] [place] [address] 03/22/2025 11:45 AM DRY BOX TENDER Office Visit [facility] [phone] Abhi Aguilar MD [address] [place] [phone] documented as of this encounter Goals Goal Patient Goal Type Associated Problems Recent Progress Patient-Stated? Author Patient will return to prior living situation and remain independent in ADLs upon discharge from [facility] Daysi Nayak RN documented [...] Total Score: 8 05/13/19 22 10:36 AM DRY BOX TENDER documented as of this encounter Care Teams Tinner Helper Relationship Specialty Start Date End Date Jimmy Doyle DO [address] [place] [address] PCP - General FAMILY PRACTICE 08/19/20 documented as of this encounter
--- OUTSIDE RECORDS SUMMARY | 2024-10-04 02:00 | XMS_ITS | Clinical Summary ---
Author Organization [facility] Address [facility] [place] [address] Care Team Providers Care Customer Service Advocate Name Role Phone Jimmy Doyle Primary Care Provide r Derrell Varma MD Unavailable [phone] Allergies Active Allergy Reactions Criticality Noted [...] on file Legal Sex Female 12:04 PM INTERNATIONAL PROJECT MANAGER Gender Identity Not on file Sexual [...] Zoster Vaccine Completed 04/06/2021, 01/27/2021 Insurance IDPA [facility] MEDICARE [facility] Address: [address] [address] [place] [address] IDPA [facility] MEDICARE ADVANTAGE [facility] MEDICARE ADVANTAGE [facility] Advance Directives For more information, please contact: [phone] * Full Code (Latest Code Status on File) Date Activated Date Inactivated Comments 02/09/2022 9:51 PM 02/12/2022 5:52 PM Care Teams Customer Service Advocate Relationship Specialty Start Date End Date Jimmy Doyle DO [address] [place] [phone] PCP - General Family Medicine 02/12/22 Derrell Varma MD [address] [facility] [address] [place] [address] Surgeon Surgery 02/12/22
--- OUTSIDE RECORDS SUMMARY | 2024-10-04 02:00 | XMS_ITS | Referral Summary ---
Author Organization [facility] Address [facility] [place] [address] Care Team Providers Care Load Checker Name Role Phone Jimmy Doyle Primary Care Provide r Derrell Varma MD Unavailable [phone] Allergies Active Allergy Reactions Criticality Noted [...] on file Legal Sex Female 12:04 PM INSTITUTION DIRECTOR Gender Identity Not on file Sexual [...] of Treatment Not on file Insurance IDPA [facility] MEDICARE ADVANTAGE IAPA [facility] MEDICARE ADVANTAGE [facility] MEDICARE ADVANTAGE [facility] MEDICARE Address: [address] [address] [place] [address] IDPA Advance Directives For more information, please contact: [phone] * Full Code (Latest Code Status on File) Date Activated Date Inactivated Comments 02/09/2022 9:51 PM 02/12/2022 5:52 PM Care Teams Load Checker Relationship Specialty Start Date End Date Jimmy Doyle DO [address] [place] [id number] PCP - General Family Medicine 02/12/22 Derrell Varma MD [address] [facility] [address] [place] [address] Surgeon Surgery 02/12/22
--- OUTSIDE RECORDS SUMMARY | 2024-10-04 02:00 | XMS_ITS | Clinical Summary ---
Author Organization [facility] Address [address] [place] [address] Care Team Providers Care Manager Of Training Name Role Phone Unavailable Primary Care Provider Unavailabl e Source Comments [facility],non-owned Affiliates and Associated Physician Practices is amultiple site organization consisting of ambulatory clinics and hospital sitesin [place], [place], [place] and [place]. This disclosure is being madepursuant to the Care Everywhere program and may not contain all information available regarding this patient. Last updated 18.[facility] Mommy Nearest Social History Tobacco Use Types Packs/Day Years Used Date Smoking Tobacco: Never Assessed Comments Unknown Sex and Gender Information Value Date Recorded Sex Assigned at Not on file Legal Sex Female 6:27 PM AGENCY SALES MANAGEMENT ASSISTANT Gender Identity Not on file Sexual Orientation [...] patient's age to complete this topic Insurance [facility] [place] [address] MEDICAID - [place] SELF PAY NO INSURANCE Member Subscriber Plan / Payer (Ef fective for All Dates) Name:Jeniffer Vargas Member ID:Not on file Relation to Subscriber:Not on file Name:JENIFFER VARGAS Subscriber ID:Not on file (Home) Address: [address] [place] [id number] Payer ID:Not on file Group ID:Not on file Type:Self Pay Address: [place], [place] [facility] MANAGED MEDICARE ADV
--- OUTSIDE RECORDS SUMMARY | 2024-10-04 02:00 | XMS_ITS | Encounter Summary ---
Author Organization [facility] Address [facility] [place] [address] Care Team Providers Care Friction Paint Machine Tender Name Role Phone Jimmy Doyle Primary Care Provider + Reason for Visit * Reason Comments Lab (SCAN) Encounter Details Date Type Department Care Team (Latest Contact Info) Description 09/26/2024 Scan HEALTH INFO SRVCS Scanned, Doc Med Group Lab (SCAN) Social History Tobacco Use Types Packs/Day Years Used Date Smoking Tobacco: Every Day Cigarettes 1 55.1 Started: [birth year]/19/1969 Smokeless Tobacco: Never Comments:trying to quit. 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 Alcohol Use Standard Drinks/Week Comments [...] Sex Assigned at Female 05/03/2024 9:57 AM COMMISSIONING ENGINEER Legal Sex Female 4:45 PM CDT Gender Identity Female 05/03/2024 9:57 AM COMMISSIONING ENGINEER Sexual Orientation Not on file documented [...] Status No 09/21/2020 1:00 PM CDT Meryl Cral RN Active documented as of this encounter [...] Description 11/05/2024 10:20 AM CDT Office Visit [facility] Family & Internal Medicine - [address] [address] Jimmy Doyle DO [address] [place] [id number] 03/22/2025 11:45 AM COMMISSIONING ENGINEER Office Visit [facility] [address] Abhi Aguilar MD [address] [place] [address] [place] [phone] documented as of this encounter Goals Goal Patient Goal Type Associated Problems Recent Progress Patient-Stated? Author Patient will return to prior living situation and remain independent in ADLs upon discharge from [facility] Daysi Nayak RN documented as of this encounter Procedures Procedure Name Priority Date/Time Associated Diagnosis Comments OUTSIDE LAB (SCAN ORDER) 09/26/2024 documented in this encounter Results * OUTSIDE LAB (SCAN ORDER) (09/26/2024) 09/26/2024 us Doc [facility] Scanned SCANNING Final Resu lt documented in this encounter Visit Diagnoses Not on filedocumented in this encounter Additional Health Concerns Assessment Noted Time PHQ-9 Depression Total Score: 10 025 9:55 AM COMMISSIONING ENGINEER documented as of this encounter Care Teams Friction Paint Machine Tender Relationship Specialty Start Date End Date Jimmy Doyle DO [address] [place] [id number] PCP - General FAMILY PRACTICE 08/19/20 documented as of this encounter
--- OUTSIDE RECORDS SUMMARY | 2024-10-04 02:01 | XMS_ITS | Data Portability ---
Author Organization [facility] OFFICE Address [address] [place] [address] Care Team Providers Care Project Management It Specialist Name Role Phone JESUS MACEDO Primary Care Provider JESUS MACDEO Referring Provider Assessment No assessment recorded. Plan [...] By Organization Details Last Modified Time 04/30/2020 78688 Exercise advised Low cholesterol diet advised Low sodium diet advised [email or web address] Not available 04/30/2020 16:38:42 Scribed by Kamila Michele [facility] [email or web address] Not available 04/30/2020 16:38:44 Reason for [...] bibasiller atelectasis or infection,clinical correlation. Efra Whitman [facility] 05/03/2020 10:01:32 D-dimer Feu, Qn, Ia, Blood : D-dimer 04/01/20:0.37 Efra Whitman [facility] 05/03/2020 09:54:26 Cbc W/ Diff : 04/01/20:WBC 7.6,RBC 4.68,HGB 14.8,HCT 41.8,PLT 251. Efra Whitman [facility] 05/03/2020 09:50:44 Cmp, Serum Or Plasma : 04/02/20:Na 139,K 3.4,Cl 102,CO2 32,GLU 99,BUN 11,Cr 0.6,Mg 2.1 Efra Whitman [facility] 05/03/2020 09:54:26 Lipid Panel, Blood : 04/02/20: TC 167,TG 220,LDL 107,HDL 30. Efra Whitman [facility] 05/03/2020 09:54:26 Problems Name Problem SNOMED Code Status Onset Date Resolution Date Notes Provider Name and Address Organization Details Recorded Time Essential hypertension 51843757 Active 2020 [facility] 15:22:30 Cerebrovascula r accident 493078390 Active 2020 [facility] 15:22:39 Hypercholester olemia 19828630 Active 2020 [facility] 15:22:56 Depressive disorder 82628709 Active 2020 [facility] 15:23:04 Problem Notes None recorded. Procedures Surgical History Date Name Laterality Status Provider Name and Address Organization Details Recorded Time Hysterectomy completed [facility] 04/30/2020 15:24:35 Cholecystectomy completed [facility] 04/30/2020 15:24:43 Imaging Results None recorded. Procedure Notes None recorded. Medical Equipment None Reported. Allergies Allergen ID Allergen Name Allergen Category Reaction Reaction Severity Criticality Documentation Date Start Date Code Code System Note Provider Name and Address Organization Details Recorded Time 98512 sulfobrom ophthalei n sodium medicatio n Not available Not available Not available 04/30/2020 41806 0 RxNorm [facility]ae [facility] [place] [facility] 15:21:51 27064 tetracycl ine medicatio n Not available Not available Not available 04/30/2020 03578 RxNorm Renaelilia [facility], [facility] 15:22:03 Medications Name Sig Start Date Stop [...] Last Updated DateTime 165.1 cm 28.3 kg/m2 86577.7 g 84 /min 18 /min 94 % 94 % 97.2 [degF] 170 mm[Hg] 100 mm[Hg] Renae Guillenmaren [facility] 15:31:15 Social History Question Answer Notes LastModified by Organizat ion Details LastModified Time Tobacco Smoking Status Current Every Day Smoker Renae Pineda kyle [facility] 04/30/2020 15:23:42 Do You Have An Advance Directive? No [place] [address] Information not available 04/30/2020 What Is Your Level Of Caffeine Consumption? None [place] [address] Information not available 04/30/2020 How Much Tobacco Do You Chew? None [place] [address] Information not available 04/30/2020 What Type Of Diet Are You Following? REGULAR [place] [address] Information not available 04/30/2020 Which Illicit Or Recreational Drugs Have You Used? No [facility] Information not available 04/30/2020 Live Alone Or With Others? With Others [place] [address] Information not available 04/30/2020 Marital Status Single [facility] Informatio n not available 04/30/2020 How Many Children Do You Have? 1 [place] [address] Information not available 04/30/2020 How Much Tobacco [...] SNOMED-CT Code Diagnosis ICD10 Code Diagnosis Note 88929 MD Izzy Naqvi Office [address] [place] [address] [place], [place] [address] [address] 04/30/2020 14:29:44 04/30/2020 15:51:37 Atypical chest pain 295421923 R07.89 Treadmill Myoview Stress test, has high [place] Risk score. Has Known CAD, or CAD risk equivalent . To look for any ischemia. 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 Cessation highly advised Essential hypertension 73587427 I10 Hyperlipidemia 15565244 E78.5 Needs to keep LDL less than 100, and HDL more than 40.Current ly not on statin therapyWil l get fasting lipids for follow-up Peripheral vascular disease 760472619 I73.9 Will get arterial doppler, to evaluate severity of peripheral vascular disease Health Concerns Section Related Observation LastModified by Organization Detai ls LastModified Time None Recorded Concern Status LastModified by Organization Details LastModified Time None Recorded Advance Directives Directive N: Payers Insurance Date Sequence Insurance Name Policy Number Policy Brown Covered Member ID Brown Member ID Guarantor Name 04/27/2020 2 [place] [employer] [facility] [employer] Jeniffer Weller [id number] Jeniffer Weller 04/27/2020 1 [place] Jeniffer Weller [id number] Jeniffer Weller Notes Date Note Type Note Provider Name and Address Organization Details Recorded Time 04/30/2020 text/html 04/30/2020 CC: chest pain Patient is a 64-year-old female with a past medical history of HLD, HTN, COPD, and CKD who is seen in cardiac consultation with a chief complaint of chest pain and hospital follow-up. She was admitted to [facility] on 04/01/2020 with chest pain. Her cardiac [...] She denies ETOH abuse. Merrick Lin MD [address] [place], [address], [place] [facility] 04/30/2020 16:39:25 OBGyn Episode No OBEpisode recorded.
--- OUTSIDE RECORDS SUMMARY | 2024-10-04 02:01 | XMS_ITS | Clinical Summary ---
Author Organization [facility] Address [facility] [place] [address] Care Team Providers Care Center Consultant Name Role Phone Starla Arshad Vladimir QURESHI Primary Care Provider + Allergies Active Allergy Reactions Criticality Noted Date Comments Amitriptyline Rash,Unknown,Other ( see comment) High 01/16/2018 Psychiatric changes Bromsulphalein Unknown 08/19/2020 [...] 24 Active ondansetron (ZOFRAN-ODT) 4 MG disintegrating tabletIndications: Nausea Take 1 tablet (4 mg total) by mouth every 8 (eight) hours as needed for Nausea. 20 tablet 08/01/19 24 Active hydrocortisone 2.5 % creamIndications:H emorrhoids, unspecified hemorrhoid type Apply topically 2 (two) times daily. 28 g 09/09/19 24 Active fluticasone propionate (FLONASE) 50 MCG/ACT nasal sprayIndications:S inusitis, unspecified chronicity, unspecified location 2 sprays by Each Nostril route daily. 9.9 mL 11/28/19 24 Active dextromethorphan-g uaiFENesin ER (MUCINEX DM) 30-600 MG TABLET SR 12 HR 12 hr tablet Take 1 tablet by mouth every 12 (twelve) hours as needed. Active valACYclovir (VALTREX) 1 g tabletIndications: Cold sore Take 1 tablet (1,000 mg total) by mouth every 8 (eight) hours. 21 tablet 01/05/20 24 Active VASCEPA 1 g capsule TAKE 2 CAPSULES BY MOUTH TWICE DAILY WITH MEALS 360 capsule 2 03/06/20 24 Active atorvastatin (LIPITOR) 40 MG tablet TAKE 1 TABLET(40 MG) BY MOUTH EVERY NIGHT AT BEDTIME 90 tablet 2 03/19/20 24 Active ranolazine ER (RANEXA) 500 MG 12 hr tablet TAKE 1 TABLET(500 MG) BY MOUTH TWICE DAILY 180 tablet 1 06/19/19 25 Active hydroCHLOROthiazid e (HYDRODIURIL) 25 MG tabletIndications: Primary hypertension Take 1 tablet (25 mg total) by mouth daily. 90 tablet 3 06/23/19 25 Active carvedilol (COREG) 12.5 MG tabletIndications: Essential hypertension TAKE 1 TABLET BY MOUTH TWICE DAILY, EVERY 12 HOURS, WITH MEALS OR FOOD 180 tablet 1 07/24/19 25 Active QUEtiapine (SEROQUEL) 300 MG tabletIndications: Bipolar affective disorder, currently depressed, mild (CMS/HCC HHS/HCC) TAKE 1 TABLET(300 MG) BY MOUTH EVERY NIGHT AT BEDTIME 90 tablet 1 07/24/19 25 Active isosorbide mononitrate ER (IMDUR) 30 MG 24 hr tabletIndications: Primary hypertension TAKE 3 TABLETS(90 MG) BY MOUTH DAILY 270 tablet 1 07/24/19 25 Active oxybutynin XL (DITROPAN-XL) 10 MG 24 hr tabletIndications: Incomplete emptying of bladder TAKE 1 TABLET(10 MG) BY MOUTH EVERY NIGHT AT BEDTIME 90 tablet 07/28/19 25 Active potassium chloride CR (KLOR-CON M) 10 MEQ tabletIndications: Hypopotassemia Take 1 tablet (10 mEq total) by mouth daily. 90 tablet 08/17/19 25 Active venlafaxine XR (EFFEXOR-XR) 150 MG 24 hr capsuleIndications :Bipolar affective disorder, currently depressed, mild ([facility] HHS/HCC) TAKE 1 CAPSULE(150 MG) BY MOUTH DAILY 90 capsule 09/04/19 25 Active HYDROcodone-acetam inophen (NORCO) 10-325 MG tabletIndications: Chronic Pain Take 1 tablet by mouth every 8 (eight) hours as needed for Pain. Indications: Chronic Pain 90 tablet 09/12/19 25 Active tolterodine (DETROL) 2 MG tablet Take 1 tablet (2 mg total) by mouth 2 (two) times daily as needed. 08/15/19 25 Active ALPRAZolam (XANAX) 0.5 MG tabletIndications: Anxiety Take 1 tablet (0.5 mg total) by mouth 3 (three) times daily as needed for Anxiety. 90 tablet 09/25/19 25 Active HYDROcodone-acetam inophen (NORCO) 10-325 MG tabletIndications: Chronic Pain Take 1 tablet by mouth every 8 (eight) hours as needed for Pain. Indications: Chronic Pain 90 tablet 07/31/19 25 025 Discontinu ed(Reorder ) cefdinir (OMNICEF) 300 MG Cap capsuleIndications :Jaw swelling Take 1 capsule (300 mg total) by mouth 2 (two) times daily. 20 capsule 08/02/19 25 025 Discontinu ed(Therapy completed) ALPRAZolam (XANAX) 0.5 MG tabletIndications: Anxiety Take 1 tablet (0.5 mg total) by mouth 3 (three) times daily as needed for Anxiety. 90 tablet 08/17/19 25 025 Discontinu ed(Reorder ) ciprofloxacin-dexa methasone (CIPRODEX) otic suspensionIndicati ons:Other infective acute otitis externa of right ear Place 4 drops into the right ear 2 (two) times daily for 10 days. 7.5 mL 09/13/19 25 025 Active Problems Problem Noted Date Diagnosed Date Ureteral cancer, right ([facility] HHS/HCC) 04/16/2 025 Bipolar affective disorder, currently depressed, mild ([facility]) 05/03/2023 Sedative, hypnotic or anxiol ytic dependence, uncomplicated ([facility]) 03/25/2022 PAD (peripheral artery disease) 02/19/2022 Right iliac artery stenosis 02/19/2022 Allergies 07/31/2021 Right lower quadrant abdominal pain 07/31/2021 Tobacco abuse 07/31/2021 Radiculopathy, lumbar region 12/29/2020 Other intervertebral disc degeneration, lumbar r egion 12/29/2020 Spondylolisthesis of lumbar region 12/29/2020 Coronary artery disease of n ative artery of [place] heart with stable angina pectoris 10/01/2020 Degenerative [...] 08/18/2020 Nausea 08/18/2020 Nicotine dependence 08/18/2020 On salvage determiner drug therapy 08/18/2020 Polyarthritis 08/18/2020 Postmenopausal status 08/18/2020 Primary osteoarthritis of left knee 08/18/2020 Triggering of digit 08/18/2020 Vitamin D deficiency 08/18/2020 Cerebrovascular accident ([facility]) 04/30 Body mass index (BMI) of 28.0 to 28.9 in adult 0 10/12/2018 Low back pain 10/12/2018 Muscle spasm 02/03/2018 Lumbar foraminal stenosis 01/17/2018 Bulging lumbar disc 01/16/2018 Hypertension 01/16/2018 GERD (gastroesophageal reflux disease) 8 Lumbar stenosis 01/16/2018 Osteoarthrosis 01/16/2018 Depressive disorder 01/16/2018 Chronic obstructive pulmonary disease ([facility]) 01/16/2018 Hyperlipidemia 01/16/2018 Resolved Problems Problem Noted Date Diagnosed Date Resolved Date Screening for breast cancer 08/18/2020 08/25/2020 Infiltrate of lung present on chest x-ray 08/18/2020 05/03/2024 Encounter for preventive health examination 02/13/2014 08/25/2020 Encounters Date Type Department Care Team Description 09/27/2024 Scan [facility] Scanned, [facility] Procedure (SCAN) 09/26/2024 Scan [facility] Scanned, [facility] Lab (SCAN) 09/24/2024 Telephone [facility] Internal [address] [address] Starla Arshad P, DO Medication Request 09/21/2024 1:45 PM CDT Office Visit [facility] [phone] Abhi Aguilar MD Coronary Artery Disease (6mo) 09/21/2024 Travel 09/18/2024 Telephone [facility] Internal [address] [phone] Starla Arshad P, DO Earache 09/12/2024 12:40 PM CDT Office Visit [address] [phone] Clare Rubio, JACOB Ear Concern (The patient states she has had rt ear itching since Tuesday. The patient has been using debrox. ) 09/12/2024 Travel 09/12/[address] [phone] LucStarla lemus P, DO Earache 09/11/[address] [phone] Starla Arshad P, DO Medication Request 09/04/2024 Scan [facility] Scanned, [facility] 08/15/2024 Scan [facility] Scanned, [facility] Lab (SCAN) 08/14/2024 Scan [facility] Scanned, [facility] Image (SCAN); Lab (SCAN) 08/13/2024 2:00 PM CDT Allied Health/Nurse Visit [facility] Internal [address] [phone] Starla Arshad, DO Allied Health Visit (A1C) 08/13/2024 Results Follow-Up [facility] Internal [address] [phone] Starla Arshad, DO A1C (BACK OFFICE) 08/13/2024 Travel 08/09/2024 Scan [facility] Scanned, [facility] Pathology (SCAN); Procedure (SCAN); Lab (SCAN) 08/06/2024 Scan [facility] Scanned, [facility] 08/02/2024 Results Follow-Up [address] [phone] Starla Arshad, DO VITAMIN D, 25 OH, LIPID PANEL, TSH W/REFLEX, Additional followed-up results: 2 08/01/2024 8:20 AM CDT Office Visit [facility] Internal [address] [phone] Starla Arshad, DO Bipolar Disorder; Spinal Stenosis ; Emphysema; Coronary Artery Disease; Hypertension 08/01/2024 Scan [facility] Scanned, [facility] Lab (SCAN); CT (SCAN) 08/01/[address] [address] Starla Arshad, DO Referral 08/01/2024 Telephone [facility] Internal [address] [phone] Starla Arshad, DO Information 08/01/2024 Travel 07/31/2024 Telephone [facility] Internal [address] [phone] Starla Arshad, DO Lab Order 07/30/2024 Telephone [facility] Internal [address] [phone] Starla Arshad, DO Medication Request 07/11/[address] [phone] Starla Arshad, DO Medication Request from Last [...] Never Comments:trying to quit. 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 Alcohol Use Standard Drinks/Week Comments Never 0 [...] Sex Assigned at Female 05/03/2024 9:57 AM QUALITY CONTROL CLERK Legal Sex Female 4:45 PM CDT Gender Identity Female 05/03/2024 9:57 AM QUALITY CONTROL CLERK Sexual Orientation Not on file Last Filed Vital Signs Vital Sign Reading Time Taken Comments Blood Pressure 130/70 09/21/2024 1:58 PM CDT Pulse 79 09/21/2024 1:58 PM CDT Temperature 36.4 C (97.5 F) 09/12/2024 12:44 PM CDT Respiratory Rate 16 09/12/2024 12:44 PM CDT Oxygen Saturation 92% 09/21/2024 1:58 PM CDT Inhaled Oxygen Concentration - - Weight 63.5 kg (140 lb 1.6 oz) 09/21/2024 1:58 P M CDT Height 165.1 cm (5' 5) 09/21/2024 1:58 PM CDT Body Mass Index 23.31 09/21/2024 1:58 PM CDT Plan of Treatment Upcoming Encounters Date Type Department Care Team (Late st Contact Info) Description 11/05/2024 10:20 AM CDT Office Visit [facility] Family & Internal Medicine - [address] [phone] Starla Arshad DO [address] [place] [phone] 03/22/2025 11:45 AM QUALITY CONTROL CLERK Office Visit [facility] [phone] Abhi Aguilar MD [address] [facility] [address] [place] [phone] Health Maintenance Due Date Last Done Comments RSV Immunization or 60+ Years (1 - Risk 60-74 years 1-dose series) 2017 Mammogram Screening 09/09/2022 09/09/2020, COVID-19 Vaccine (6 - Pfizer risk season) 2024 01/18/2024, 01/27/2023, 01/27/2023, Additional history [...] 12/31/2022, 01/12/2020, Additional history exists PHQ-2 (Physician Early [facility]) Completed 05/03/2024 Meningococcal B Vaccine Aged Out [...] discharge from hospital General Daysi Nayak RN Procedures Procedure Name Priority Date/Time Associated Diagnosis Comments PROCEDURE GENERIC (SCAN ORDER) 09/27/2024 PROCEDURE GENERIC (SCAN ORDER) 09/27/2024 OUTSIDE LAB (SCAN ORDER) 09/26/2024 OUTSIDE LAB (SCAN ORDER) 08/15/2024 OUTSIDE LAB (SCAN ORDER) 08/14/2024 OUTSIDE LAB (SCAN ORDER) 08/14/2024 OUTSIDE LAB (SCAN ORDER) 08/14/2024 IMAGE GENERIC 08/14/2024 COLLECT.CAPILLARY (FNGR,HEEL,EAR) Routine 08/13/2024 2:04 PM CDT Elevated fasting glucose HEMOGLOBIN, GLYCOSYLATED Routine 08/13/2024 Elevated fasting glucose PATHOLOGY GENERIC (SCAN ORDER) 08/09/2024 PATHOLOGY GENERIC (SCAN ORDER) 08/09/2024 OUTSIDE LAB (SCAN ORDER) 08/09/2024 PROCEDURE GENERIC (SCAN ORDER) 08/09/2024 PROCEDURE GENERIC (SCAN ORDER) 08/09/2024 CBC W/DIFF AUTOMATED Routine 08/01/2024 9:26 AM [...] GENERIC 08/01/2024 OUTSIDE LAB (SCAN ORDER) 08/01/2024 HEPATITIS C ANTIBODY Routine 04/05/2023 8:24 AM QUALITY CONTROL CLERK Primary hypertension Screening for lipid disorders Screening for endocrine, metabolic and immunity disorder Annual physical exam Need for hepatitis C screening test MG DIAG W WILMER BILAT DIGI Routine 09/09/2020 12:14 PM CDT Breast lump on left side at 10 o'clock position from Last 3 Months or Most Recently Relevant to Health Maintenance Results * PROCEDURE GENERIC (SCAN ORDER) (09/27/2024) 09/27/2024 us [facility] Scanned SCANNING Final Resu lt * PROCEDURE GENERIC (SCAN ORDER) (09/27/2024) 09/27/2024 Result [facility] Scanned SCANNING Final Resu lt * OUTSIDE LAB (SCAN ORDER) (09/26/2024) Only the most recent of7 resultswithin the time period is included. 09/26/2024 Result [facility] Group Scanned SCANNING Final Resu lt * IMAGE GENERIC (08/14/2024) Anatomical Region Laterality Modality Other 08/14/2024 Result [facility] Scanned SCANNING Final Resu lt * A1C (BACK OFFICE) (08/13/2024) HGB A1C 5.6 % [facility] 08/13/2024 Result [facility] Starla Arshad DO LABORATORY Final Re sult [facility] [address] [place] [address], [place] * PATHOLOGY GENERIC (SCAN ORDER) (08/09/2024) Only the most recent of2 resultswithin the time period is included. 08/09/2024 us [facility] Scanned SCANNING Final Resu lt * PROCEDURE GENERIC (SCAN ORDER) (08/09/2024) 08/09/2024 us [facility] Scanned SCANNING Final Resu lt * PROCEDURE GENERIC (SCAN ORDER) (08/09/2024) 08/09/2024 us [facility] Scanned SCANNING Final Resu lt * TSH W/REFLEX (08/01/2024 9:26 AM CDT) TSH 1.455 0.358 - 3.740 uIU/ML 08/01/2024 3:42 PM CDT [facility] 08/01/2024 9:26 AM CDT Starla Arshad DO LABORATORY Final Re sult [facility] [address] [place] [address], * (ABNORMAL) COMPREHENSIVE METABOLIC PANEL (08/01/2024 9:26 AM CDT) SODIUM S/P/B 141 136 - 145 MMOL/L 08/01/2024 3:42 PM CDT [facility] POTASSIUM S/P/B 3.7 3.5 - 5.1 MMOL/L 08/01/2024 3:42 PM CDT [facility] CHLORIDE S/P/B 102 98 - 107 MMOL/L 08/01/2024 3:42 PM CDT [facility] CO2 33.1(H) 21 - 32 MMOL/L 08/01/2024 3:45 PM CDT [facility] Comment:RESULTS CONFIRMED-TE ST REPEATED GLUCOSE 104(H) 70 - 99 MG/DL 08/01/2024 3:42 PM CDT [facility] BUN 11 7 - 18 MG/DL 08/01/2024 3:42 PM CDT [facility] CREATININE S/P/B 0.70 0.55 - 1.02 MG/DL 08/01/2024 3:42 PM T [facility] CALCIUM S/P/B 9.4 8.4 - 10.5 MG/DL 08/01/2024 3:42 PM T [facility] BILIRUBIN TOTAL S/P/B 0.6 0.2 - 1.0 MG/DL 08/01/2024 3:42 PM T [facility] ALKALINE PHOSPHATASE S/P/B 70 55 - 142 U/L 08/01/2024 3:42 PM CDT [facility] 17 15 - 37 U/L 08/01/2024 3:42 PM T [facility] ALT 16 14 - 59 U/L 08/01/2024 3:42 PM T [facility] TOTAL PROTEIN S/P/B 7.6 6.4 - 8.2 G/DL 08/01/2024 3:42 PM T [facility] ALBUMIN S/P/B 3.7 3.4 - 5.0 G/DL 08/01/2024 3:42 PM T [facility] ANION GAP 5.9 5 - 15 MMOL/L 08/01/2024 3:45 PM T [facility] Comment:REFERENCE RANGE NOT ESTABLISHED OSMOLALITY (CALC) 292 MOSM/KG 025 3:42 PM T [facility] Comment:REFERENCE RANGE NOT ESTABLISHED GFR ESTIMATE >90 >90 ML/MIN/1. 73 M2 08/01/2024 3:42 PM T [facility] GFR NOTES GFR REFERENCE S: 08/01/2024 3:42 PM T [facility] Comment: THE ESTIMATED GFR IS CALCULATED USING [...] DO LABORATORY Final Re sult [facility] [address] [place] [address], * (ABNORMAL) LIPID PANEL (08/01/2024 9:26 AM CDT) CHOLESTEROL 112 <200 MG/DL 08/01/2024 3:42 PM CDT [facility] TRIGLYCERIDES 58 <150 MG/DL 08/01/2024 3:42 PM CDT [facility] HDL 40(L) >40 MG/DL 08/01/2024 3:42 PM CDT [facility] LDL-C 60 <100 MG/DL 08/01/2024 3:42 PM CDT [facility] VLDL CALCULATION 12 5 - 28 MG/DL 08/01/2024 3:42 PM CDT [facility] CHOL/HDL RATIO 2.8 0.0 - 4.0 08/01/2024 3:42 PM CDT [facility] LDL/HDL 1.5 0.41 - 2.13 08/01/2024 3:42 PM CDT [facility] NON HDL CHOLESTEROL 72 <140 MG/DL 08/01/2024 3:42 PM CDT [facility] 08/01/2024 9:26 AM CDT Starla Arshad DO LABORATORY Final Re sult [facility] [address] [place] [address], * CBC W/DIFF AUTOMATED (08/01/2024 9:26 AM CDT) WBC 8.07 4.00 - 10.80 x10'3/uL 08/01/2024 2:43 PM CDT MG-[facility] RBC 4.19 4.10 - 5.40 x10'6/uL 08/01/2024 2:43 PM CDT [facility] HGB 13.0 12.0 - 16.0 G/DL 08/01/2024 2:43 PM CDT -[facility] HCT 38.4 36.0 - 47.0 % 08/01/2024 2:43 PM CDT -[facility] MCV 91.6 78.0 - 100.0 FL 08/01/2024 2:43 PM CDT [facility] MCH 31.0 27.0 - 31.0 PG 08/01/2024 2:43 PM CDT [facility] MCHC 33.9 33.0 - 36.0 G/DL 08/01/2024 2:43 PM CDT [facility] RDW 13.2 11.5 - 14.5 % 08/01/2024 2:43 PM CDT [facility] PLT 281 150 - 350 x10'3/uL 08/01/2024 2:43 PM CDT [facility] MPV 9.4 7.4 - 10.4 FL 08/01/2024 2:43 PM CDT [facility] DIFFERENTIAL TYPE AUTOMATED DIFFERENTIAL 08/01/2024 2:43 PM CDT [facility] NEUTROPHILS % 68.6 % 08/01/2024 2:43 PM CDT [facility] LYMPHOCYTES % 18.2 % 08/01/2024 2:43 PM CDT [facility] MONOCYTES % 7.9 % 08/01/2024 2:43 PM CDT [facility] EOSINOPHILS % 4.8 % 08/01/2024 2:43 PM CDT [facility] BASOPHILS % 0.4 % 08/01/2024 2:43 PM CDT [facility] IMMATURE GRANS % 0.1 % 08/01/2024 2:43 PM CDT [facility] ABS. NEUTROPHILS 5.53 1.60 - 8.30 x10'3/uL 08/01/2024 2:43 PM CDT [facility] ABS. LYMPHOCYTES 1.47 0.80 - 4.70 x10'3/uL 08/01/2024 2:43 PM CDT [facility] ABS. MONOCYTES 0.64 0.00 - 1.50 x10'3/uL 08/01/2024 2:43 PM CDT -[facility] ABS. EOSINOPHILS 0.39 0.00 - 0.40 x10'3/uL 08/01/2024 2:43 PM CDT [facility] ABS. BASOPHILS 0.03 0.00 - 0.20 x10'3/uL 08/01/2024 2:43 PM CDT [facility] ABS. IMMATURE GRANULOCYTES 0.01 0.00 - 0.03 x10'3/uL 08/01/2024 2:43 PM CDT [facility] 08/01/2024 9:2 6 AM CDT us Starla Arshad DO LABORATORY Final Re sult [facility] [address] [place] [address], * VITAMIN D, 25 OH (08/01/2024 9:26 AM CDT) VITAMIN D 25 HYDROXY TOTAL S/P/B 31.9 30 - 100 NG/ML 08/01/2024 3:42 PM CDT [facility] Comment: DEFICIENT <20 INSUFFICIENT 20-30 SUFFICIENT 30-100 08/01/2024 9:26 AM CDT [facility] Final Re sult [facility] [address] [place] [address], [place] [phone] * CT GENERIC (08/01/2024) Anatomical Region Laterality Modality Other 08/01/2024 us [facility] Scanned SCANNING Final Resu lt * HEPATITIS C ANTIBODY (04/05/2023 8:24 AM QUALITY CONTROL CLERK) Pathologist [facility] HEPATITIS C AB NON-REACTI VE NON-REACT RAUL 04/05/2023 6:53 PM QUALITY CONTROL CLERK [facility] Comment: ANTIBODIES TO HCV NOT DETECTED. DOES NOT EXCLUDE THE POSSIBILITY OF EXPOSURE TO HCV. 04/05/2023 8:24 AM QUALITY CONTROL CLERK [facility] Vladimir Arshad LABORATORY Final Re sult [facility] [address] [place] [address], [id number] * MG DIAG W WILMER BILAT DIGI [...] Examination: Bilateral digital diagnostic mammogram with CAD. [id number] Clinical history: Left breast lump and tenderness. [...] demonstrate any discrete solid or cystic mass. [place] appearing tissue architecture is demonstrated. Physical exam surveillance is advised with any further evaluation at this point guided on that basis. From a mammographic standpoint, routine follow-up in one year would seem adequate. These findings were discussed with the patient. us Starla Arshad DO MAMMO Final Re sult from Last 3 Months or Most Recently Relevant to Health Maintenance Insurance [facility] MEDICAID Advance Directives * Full Code (Latest Code Status on File) Date Activated Date Inactivated Comments 09/22/2020 12:40 PM 09/23/2020 12:52 PM Care Teams Center Consultant Relationship Specialty Start Date End Date Starla Arshad DO [address] [place] [phone] PCP - General FAMILY PRACTICE 08/19/20
--- NOTE | 2024-10-04 06:29 | WPDHPUPDATE1 ---
History and Physical Update Update Date/Time: 10/04/24 06:29 History and Physical has been reviewed, including an updated exam of the patient. There are NO changes in the patient's condition. Risks, benefits, and alternatives have been discussed and questions answered. Patient agrees to proceed with procedure.
--- NOTE | 2024-10-04 08:56 | P.PNAN_ITS ---
Anes - Initial Pre Proc Eval Procedure: Operation Date: 10/04/24 10:30 Proposed Procedures p Cystoscopy, Right Retrograde Pyelogram, Right Ureteroscopy, Jelmyto Instillation - Tacos Bowers MD Date/Time: 10/04/24 08:56 Surgeon: Tacos Bowers MD Pre Op Diagnosis: right urothelial CA Patient Data Age: 68 Gender: F Height: 1.66 m Weight: 63.05 kg Allergies Allergy/AdvReac Type Severity Reaction Status Date / Time amitriptyline (From Elavil) Allergy Unknown Confusion Verified 09/20/24 14:54 Penicillins Allergy Unknown Rash Verified 09/20/24 14:54 Sulfa (Sulfonamide Allergy Unknown Hives Verified 09/20/24 14:54 Antibiotics) sulfanilamide Allergy Unknown Hives Verified 09/20/24 14:54 ciprofloxacin AdvReac Intermediate Shakiness Verified 09/20/24 14:54 codeine AdvReac Unknown N/V Verified 09/20/24 14:54 tetracycline AdvReac Unknown Nausea Verified 09/20/24 14:54 doxycycline AdvReac Nausea and Verified 09/20/24 14:54 Vomiting Home Medications ?Medication ?Instructions ?Recorded ?Confirmed ?Type aspirin 81 mg tablet,delayed 81 mg PO DAILY 04/05/19 09/27/24 History release (Aspir-) hydrochlorothiazide 25 mg tablet 25 mg PO DAILY #90 tabs 08/27/20 09/20/24 Rx atorvastatin 40 mg tablet (Lipitor) 40 mg PO HS 01/10/21 09/20/24 History bupropion HCl 150 mg 24 hr tablet, 150 mg PO HS 01/10/21 09/20/24 History extended release (Wellbutrin XL) isosorbide mononitrate 30 mg 90 mg PO QACLUNCH 01/10/21 09/27/24 History tablet,extended release 24 hr nitroglycerin 0.4 mg sublingual 0.4 mg sublingual PRN CHEST PAIN 01/10/21 09/20/24 History tablet potassium chloride 10 mEq 10 meq PO DAILY 01/10/21 09/20/24 History tablet,extended release (K-Tab) venlafaxine 150 mg See Rx Instructions .Route .COMPLEX 03/02/22 09/27/24 History capsule,extended release 24 hr (Effexor XR) ranolazine 500 mg tablet,extended 500 mg PO Q12HR 30 days #60 tabs 03/04/22 09/27/24 Rx release,12 hr (Ranexa) cholecalciferol (vitamin D3) 125 125 mcg PO DAILY 11/12/22 09/20/24 History mcg (5,000 unit) tablet (Vitamin D3) hydrocodone 10 mg-acetaminophen 1 tablet PO PRN PRN pain 06/18/24 09/20/24 History 325 mg tablet oxybutynin chloride 10 mg 10 mg PO HS 06/18/24 09/20/24 History tablet,extended release 24 hr alprazolam 0.5 mg tablet 0.5 mg PO TID PRN anxiety 07/30/24 09/27/24 History carvedilol 12.5 mg tablet 12.5 mg PO BID 07/30/24 09/27/24 History cephalexin 500 mg capsule 500 mg PO Q8H #15 caps 08/09/24 09/20/24 Rx hydrocodone 5 mg-acetaminophen 325 1 - 2 tablet PO Q6H PRN pain #20 08/09/24 09/27/24 Rx mg tablet tabs mirabegron 50 mg tablet,extended 50 mg PO DAILY #30 tabs 08/09/24 09/20/24 Rx release 24 hr (Myrbetriq) ondansetron 4 mg disintegrating 4 mg PO Q6H PRN nausea and 08/14/24 09/20/24 Rx tablet vomiting #10 tabs icosapent ethyl 1 gram capsule 2 g PO BID 09/12/24 09/20/24 History quetiapine 300 mg tablet (Seroquel) 300 mg PO HS 09/12/24 09/20/24 History tolterodine 2 mg tablet 2 mg PO Q12H 09/12/24 09/20/24 History Patient hx anesthesia problems: none Family hx anesthesia problems: none Results Review: All pre-operative results and documents have been reviewed as part of the pre- operative evaluation. [facility] Past Medical History Medical History Emphysema lung Screening for colon cancer Screening for breast cancer Postmenopausal Hx of pancreatitis Depression Kidney stones Kidney disease Urinary frequency High cholesterol Pneumonia Vision abnormalities Weight gain Cholecystectomy planned Anxiety Surgical History Surgical History H/O excision of mass 11/22/22 Excision of 5 cm perianal cyst History of cholecystectomy Hx of tonsillectomy History of partial hysterectomy H/O colonoscopy History of esophagogastroduodenoscopy (EGD) History of laryngoscopy Family History Family History Sibling Patient's brother is in good health Dementia Mother Family history of coronary artery disease Acute myocardial infarction Father Patient's father is Acute myocardial infarction Cerebrovascular accident Unknown Heart disease Cerebrovascular accident Other Family history of mental disorder Social History Social History Smoking packs per day: 1 Smoking cigarettes per day: 20.0 Years smoked: 52 Smoking pack-years: 52.00 Smoking status: Current every day smoker Tobacco type: cigarettes Second hand tobacco smoke exposure: No Alcohol intake: never Substance use: current Substance use type: marijuana Other substance usage details: Daily Last use: 09/12/24 Lack of Transportation: No Lack of Food: Never True Current Housing: I Have Housing Concerned About Future Housing: No Difficulty Paying Gas/Electric Bills: No Difficulty Paying for Meds: No Currently Unemployed: No Education: Decline to Answer Difficulty w/ Childcare or Family Care: No Living arrangements: alone Spiritual care concerns: No Anes - Eval Final PreProcedure Day of Procedure 10/04/24 08:56 Patient weight: normal Heart: regular rate and rhythm Lungs: decreased breath sounds Airway: Mallampati scale class II Neurological: alert and oriented Last oral intake: >/= 8 hours ASA classification: IV Emergent: no Anesthetic plan: proceed Anesthesia type and monitoring: general LMA and standard monitoring Results Review: All pre-operative results and documents have been reviewed as part of the pre- operative evaluation. Informed Consent: The patient's anesthetic plan and its attendant risks and benefits were discussed with the patient/family/POA. Questions were solicited and answers provided to the satisfaction of the patient/family/POA.
[2024-10-04] MEDS: LACTATED RINGERS 1,000 ML 30 ML IV CONT (09:15)
[2024-10-04] MEDS: LIDOCAINE 2% GEL UROJET 10 ML PKG MUCOUS MEM (09:25)
[2024-10-04] MEDS: SODIUM BICARBONATE TAB 650 MG TABLET 1300 MG PO (09:35)
[2024-10-04] MEDS: ceFAZolin 2 GM/D5W 50 ML 2 GM/50 ML BAG IVPB (10:30)
--- NOTE | 2024-10-04 10:36 | SUR.OPER ---
36mg/9mL instilled, 44mg/11mL wasted
[2024-10-04] MEDS: MITOMYCIN 36 MG URETHRAL (10:47)
--- NOTE | 2024-10-04 11:07 | W.PM.PROC2 ---
Procedure Note - Detailed Date of Procedure 10/04/24 Pre-op Diagnosis Right renal pelvis urothelial CA Post-op Diagnosis Same Procedure Performed Cystoscopy, right retrograde pyelography, right Jelmyto instillation Surgeon Tacos Bowers MD Anesthesia General Description of Procedure Patient is brought to the operative suite where she was prepped and draped in routine sterile fashion while in dorsal lithotomy position after the uneventful induction of a general LMA anesthetic. A 19F rigid cystoscope was placed in the bladder. The bladder was carefully inspected. Mucosa is normal without hyperemia. There was no intravesical neoplasm. A 0.035 in glidewire was advanced in the right renal pelvis and a ureteral catheter was advanced over the guidewire. Prior retrograde pyelography had determined a renal pelvic volume of cc. We opted to use that prior volume determination for today's instillation. After appropriate reconstitution of the Jelmyto in ice retrograde injection was undertaken through the same ureteral catheter positioned at the UPJ. A total of 9mL (36 mg) of Jelmyto was instilled in the renal pelvis without incident. The volume of Jelmyto wasted was 11mL (44 mg). the ureteral catheter was allowed to stand for 60 seconds and then removed with ease. Because the patient has no history of ureteral stricture I opted not to place a ureteral stent. Patient tolerated the procedure well was taken to the recovery room in good condition. Drains No Packing No Pathology None sent Complications No immediate complications Condition Stable
--- NOTE | 2024-10-04 11:17 | W.PM.PROC2 ---
Procedure Note - Detailed Date of Procedure 10/04/24 Pre-op Diagnosis Right upper urinary tract urothelial carcinoma Post-op Diagnosis Same Procedure Performed Cystoscopy, right retrograde pyelography, right installation of Jelmyto Surgeon Tacos Bowers MD Anesthesia General Description of Procedure Patient is brought to the operative suite where he/she was prepped and draped in routine sterile fashion while in dorsal lithotomy position after the uneventful induction of a general LMA anesthetic. A 19F rigid cystoscope was placed in the bladder. The bladder was carefully inspected. Mucosa is normal without hyperemia. There was no intravesical neoplasm. A 0.035 in glidewire was advanced in the right/left renal pelvis and a ureteral catheter was advanced over the guidewire. The retrograde pyelogram was obtained to ensure appropriate positioning of the ureteral catheter in the collecting system. Prior retrograde pyelography had determined a renal pelvic volume of cc. We opted to use that prior volume determination for today's instillation. After appropriate reconstitution of the Jelmyto in ice retrograde injection was undertaken through the same ureteral catheter positioned at the UPJ. A total of []mL ([] mg) of Jelmyto was instilled in the renal pelvis without incident. The volume of Jelmyto wasted was [] mL ([] mg). the ureteral catheter was allowed to stand for 60 seconds and then removed with ease. Because the patient has no history of ureteral stricture I opted not to place a ureteral stent. Patient tolerated the procedure well was taken to the recovery room in good condition. Pathology None sent
== END 2024-10-04 12:25 | disposition home or self-care (01) ==
PROVIDERS: PCP Student in an Organized Health Care Education/Training Program; Visit Provider Urology
PROC: (CPT 52352; principal; 2024-10-04 10:30)
DX: C65.1 Malignant neoplasm of right renal pelvis (principal); C66.1 Malignant neoplasm of right ureter; F17.210 Nicotine dependence, cigarettes, uncomplicated; F12.90 Cannabis use, unspecified, uncomplicated
CPT/HCPCS: C9789; 74420; A9270; C1758; C1769; J0690; J2003; J2371; J2405; J2704; J3010; J7120; J9281; Q9966

== ENCOUNTER 2024-10-10 12:23 | Outpatient (CLI) | payer MEDICARE, MEDICAID, SELFPAY ==
[2024-10-10 12:53] LABS: Basophils Absolute Auto 0.1 K/mm3 (0.0-0.1); Basophils Percent Auto 0.7 % (0.2-1.2); Eosinophils Absolute Auto 0.4 K/mm3 (0-0.3); Eosinophils Percent Auto 4.2 % (0-4.4); Hematocrit 42.2 % (37.0-47.0); Hemoglobin 13.9 g/dL (12.0-15.0); Immature Granulocyte Absolute 0.01 K/mm3 (0.00-0.031); Immature Granulocyte Percent A 0.1 % (0-0.5); Lymphocytes Absolute Auto 1.82 K/mm3 (0.9-3.2); Lymphocytes Percent Auto 20.9 % (18.3-44.2); Mean Corpuscular HGB Conc 32.9 g/dl (32-36); Mean Corpuscular Hemoglobin 30.2 pg (26-34); Mean Corpuscular Volume 91.5 fl (80-100); Mean Platelet Volume 8.5 fl (7.4-10.4); Monocytes Absolute Auto 0.8 K/mm3 (0.1-0.6); Monocytes Percent Auto 9.6 % (2.6-8.5); Neutrophils Absolute Auto 5.6 K/mm3 (1.3-6.7); Neutrophils Percent Auto 64.5 % (45.5-73.1); Platelet Count Result 266 k/mm3 (150-375); Red Blood Count 4.61 M/mm3 (4.2-5.4); Red Cell Distribution Width 14.7 % (11.5-14.5); White Blood Count 8.7 K/mm3 (4.5-10.0)
== END 2024-10-10 12:24 | disposition home or self-care (01) ==
LOC: ANHSURGERY 12:26
PROVIDERS: PCP Student in an Organized Health Care Education/Training Program; Visit Provider Urology
DX: C65.1 Malignant neoplasm of right renal pelvis (principal)
CPT/HCPCS: 36415; 85025

== ENCOUNTER 2024-10-11 01:04 | Day surgery (SDC) | payer MEDICARE, MEDICAID, SELFPAY ==
--- NOTE | 2024-09-20 14:03 | PC.NURSE ---
Report to the Outpatient Waiting Room, entrance under the green pavilion located off [facility], at time _9 AM on date _10/11/24 . Planned Procedure Time: _11 AM .? Time changes happen often and if your time is changed the preop area will call you the afternoon before. - You and your visitor will be asked to self-screen and do not enter if you have any COVID symptoms. Please call surgeon if you need to reschedule. - A mask is optional within the hospital at this time. Patients may have clear liquids (water, carbonated beverages, clear teas, apple juice) until 3 hours prior to surgery ( 8 AM) with a maximum of 20 ounces. - No food from midnight until time of surgery and no smoking, or chewing tobacco (or any form of nicotine). No chewing gum, candy or mints. Take only the following medications with a SIP of water on the morning of surgery: _ALPRAZOLAM,CARVEDILOL,HYDROCODONE IF NEEDED FOR PAIN,VENLAFAXINE,RANOLAZINE DO NOT STOP ANY OF YOUR OTHER PRESCRIPTION MEDICATIONS PRIOR TO SURGERY EXCEPT THE FOLLOWING Hold all vitamins and supplements for 3 days per anesthesiologist.LAST DOSE 10/07/24 Medications to discontinue per physician _ASPIRIN ON HOLD SINCE 09/19/24 Date to take last dose Please no make-up, nail hungarian, hairspray, perfume, deodorant, or body powder the day of surgery.? No jewelry (including any body piercings) or valuables the day of surgery, leave them at home.? Please take a shower or bath the night before, or the morning of, surgery with an antibacterial soap.? Wear comfortable, loose fitting clothing.? Children are encouraged to wear pajamas. - Jewelry must be removed prior to entering the operating room.? Rings and piercings that are not removed may be cut off. - The hospital will not accept responsibility for valuables.? - Please leave all valuables, including medications, at home the day of surgery. If you are going home after surgery, a licensed otr flatbed company truck driver must drive you home.? - NO public transportation without another adult if you receive anesthesia. - We recommend that an adult stay with you for 24 hours following discharge. - We also recommend that you do not drive, make important decision, drink alcoholic beverages, or take any drugs that were not prescribed by your health care provider for at least 24 hours after your discharge time. For Pediatric surgeries, we recommend two adults accompany the child home. Follow any additional instructions given to you from your surgeon. Telephone instructions given to ___PATIENT and asked if any additional questions and then verbalized understanding. Patient advised to call surgeon office or pre surgery nurse liaison [phone] if any additional questions.
[2024-09-20 14:06] VITALS: BMI 22.7
--- NOTE | 2024-09-20 14:10 | PC.NURSE ---
STATES NO CHANGE IN HEALTH HX. WILL CALL IF CHANGE IN MEDS OR HEALTH HX
--- NOTE | 2024-09-20 14:24 | PC.NURSE ---
Report to the Outpatient Waiting Room, entrance under the green pavilion located off [facility], at time __10 AM on date ___10/16/24____. Planned Procedure Time: _1200 NOON .? Time changes happen often and if your time is changed the preop area will call you the afternoon before. - You and your visitor will be asked to self-screen and do not enter if you have any COVID symptoms. Please call surgeon if you need to reschedule. - A mask is optional within the hospital at this time. Patients may have clear liquids (water, carbonated beverages, clear teas, apple juice) until 3 hours prior to surgery ( 9AM) with a maximum of 20 ounces. - No food from midnight until time of surgery and no smoking, or chewing tobacco (or any form of nicotine). No chewing gum, candy or mints. Take only the following medications with a SIP of water on the morning of surgery: _ALPRAZOLAM,CARVEDILOL,HYDROCODONE IF NEEDED FOR PAIN,VENLAFAXINE,RANOLAZINE DO NOT STOP ANY OF YOUR OTHER PRESCRIPTION MEDICATIONS PRIOR TO SURGERY EXCEPT THE FOLLOWING Hold all vitamins and supplements for 3 days per anesthesiologist.LAST DOSE 10/12/24 Medications to discontinue per physician HELD ASPIRIN SINCE 09/19/24 Date to take last dose Please no make-up, nail guinean, hairspray, perfume, deodorant, or body powder the day of surgery.? No jewelry (including any body piercings) or valuables the day of surgery, leave them at home.? Please take a shower or bath the night before, or the morning of, surgery with an antibacterial soap.? Wear comfortable, loose fitting clothing.? Children are encouraged to wear pajamas. - Jewelry must be removed prior to entering the operating room.? Rings and piercings that are not removed may be cut off. - The hospital will not accept responsibility for valuables.? - Please leave all valuables, including medications, at home the day of surgery. If you are going home after surgery, a licensed route sales delivery driver must drive you home.? - NO public transportation without another adult if you receive anesthesia. - We recommend that an adult stay with you for 24 hours following discharge. - We also recommend that you do not drive, make important decision, drink alcoholic beverages, or take any drugs that were not prescribed by your health care provider for at least 24 hours after your discharge time. For Pediatric surgeries, we recommend two adults accompany the child home. Follow any additional instructions given to you from your surgeon. Telephone instructions given to _PATIENT and asked if any additional questions and then verbalized understanding. Patient advised to call surgeon office or pre surgery nurse liaison [phone] if any additional questions.
--- NOTE | 2024-10-02 07:19 | PM.HPGS ---
History of Present Illness History of Present Illness Consent: Risks, benefits, and alternatives have been discussed and questions answered. Patient agrees to proceed with procedure. Chief complaint: right urothelial CA Narrative: Jeniffer Weller is a 68 year old female recently found to have low-grade papillary urothelial carcinoma the right upper urinary tract. She has undergone laser ablation. Follow-up surveillance cystoscopy and ureteroscopy showed a recurrence in the bladder and only a small area of concern near the right UPJ. It was again ablated. After discussion of options she has elected to proceed with cystoscopy with retrograde pyelography and a course of Jelmyto instilation. She is aware the risk including, but not limited to, recurrent neoplasm with need for further therapy, hematuria, ureteral stricture. Review of Systems Review of Systems: All systems reviewed & are unremarkable except as noted in HPI and below PMFSH Past Medical History Medical History Emphysema lung Screening for colon cancer Screening for breast cancer Postmenopausal Hx of pancreatitis Depression Kidney stones Kidney disease Urinary frequency High cholesterol Pneumonia Vision abnormalities Weight gain Cholecystectomy planned Anxiety Surgical History Surgical History H/O excision of mass 11/22/22 Excision of 5 cm perianal cyst History of cholecystectomy Hx of tonsillectomy History of partial hysterectomy H/O colonoscopy History of esophagogastroduodenoscopy (EGD) History of laryngoscopy Family History Family History Sibling Patient's brother is in good health Dementia Mother Family history of coronary artery disease Acute myocardial infarction Father Patient's father is Acute myocardial infarction Cerebrovascular accident Unknown Heart disease Cerebrovascular accident Other Family history of mental disorder Social History Social History Smoking packs per day: 1 Smoking cigarettes per day: 20.0 Years smoked: 52 Smoking pack-years: 52.00 Smoking status: Current every day smoker Tobacco type: cigarettes Second hand tobacco smoke exposure: No Alcohol intake: never Substance use: current Substance use type: marijuana Other substance usage details: Daily Last use: 09/12/24 Lack of Transportation: No Lack of Food: Never True Current Housing: I Have Housing Concerned About Future Housing: No Difficulty Paying Gas/Electric Bills: No Difficulty Paying for Meds: No Currently Unemployed: No Education: Decline to Answer Difficulty w/ Childcare or Family Care: No Living arrangements: alone Spiritual care concerns: No Meds Home Medications and Allergies Home Medications ?Medication ?Instructions ?Recorded ?Confirmed ?Type aspirin 81 mg tablet,delayed 81 mg PO DAILY 04/05/19 09/27/24 History release (Aspir-) hydrochlorothiazide 25 mg tablet 25 mg PO DAILY #90 tabs 08/27/20 09/20/24 Rx atorvastatin 40 mg tablet (Lipitor) 40 mg PO HS 01/10/21 09/20/24 History bupropion HCl 150 mg 24 hr tablet, 150 mg PO HS 01/10/21 09/20/24 History extended release (Wellbutrin XL) isosorbide mononitrate 30 mg 90 mg PO QACLUNCH 01/10/21 09/27/24 History tablet,extended release 24 hr nitroglycerin 0.4 mg sublingual 0.4 mg sublingual PRN CHEST PAIN 01/10/21 09/20/24 History tablet potassium chloride 10 mEq 10 meq PO DAILY 01/10/21 09/20/24 History tablet,extended release (K-Tab) venlafaxine 150 mg See Rx Instructions .Route .COMPLEX 03/02/22 09/27/24 History capsule,extended release 24 hr (Effexor XR) ranolazine 500 mg tablet,extended 500 mg PO Q12HR 30 days #60 tabs 03/04/22 09/27/24 Rx release,12 hr (Ranexa) cholecalciferol (vitamin D3) 125 125 mcg PO DAILY 11/12/22 09/20/24 History mcg (5,000 unit) tablet (Vitamin D3) hydrocodone 10 mg-acetaminophen 1 tablet PO PRN PRN pain 06/18/24 09/20/24 History 325 mg tablet oxybutynin chloride 10 mg 10 mg PO HS 06/18/24 09/20/24 History tablet,extended release 24 hr alprazolam 0.5 mg tablet 0.5 mg PO TID PRN anxiety 07/30/24 09/27/24 History carvedilol 12.5 mg tablet 12.5 mg PO BID 07/30/24 09/27/24 History cephalexin 500 mg capsule 500 mg PO Q8H #15 caps 08/09/24 09/20/24 Rx hydrocodone 5 mg-acetaminophen 325 1 - 2 tablet PO Q6H PRN pain #20 08/09/24 09/27/24 Rx mg tablet tabs mirabegron 50 mg tablet,extended 50 mg PO DAILY #30 tabs 08/09/24 09/20/24 Rx release 24 hr (Myrbetriq) ondansetron 4 mg disintegrating 4 mg PO Q6H PRN nausea and 08/14/24 09/20/24 Rx tablet vomiting #10 tabs icosapent ethyl 1 gram capsule 2 g PO BID 09/12/24 09/20/24 History quetiapine 300 mg tablet (Seroquel) 300 mg PO HS 09/12/24 09/20/24 History tolterodine 2 mg tablet 2 mg PO Q12H 09/12/24 09/20/24 History Allergies Allergy/AdvReac Type Severity Reaction Status Date / Time amitriptyline (From [facility]) Allergy Unknown Confusion Verified 09/20/24 14:54 Penicillins Allergy Unknown Rash Verified 09/20/24 14:54 Sulfa (Sulfonamide Allergy Unknown Hives Verified 09/20/24 14:54 Antibiotics) sulfanilamide Allergy Unknown Hives Verified 09/20/24 14:54 ciprofloxacin AdvReac Intermediate Shakiness Verified 09/20/24 14:54 codeine AdvReac Unknown N/V Verified 09/20/24 14:54 tetracycline AdvReac Unknown Nausea Verified 09/20/24 14:54 doxycycline AdvReac Nausea and Verified 09/20/24 14:54 Vomiting Exam Const: General: no acute distress Resp: Effort & Inspection: normal respiratory effort GI: Inspection: non-distended GI Palp: No abdominal tenderness and No Guarding due to palpation present (GI) Auscultation: normal bowel sounds Assessment and Plan Assessment and plan (1) 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
[2024-10-11] VITALS (7 sets, daily range): BP systolic 117–132; BP diastolic 53–84; PULSE 66–76; RESP 12–18; TEMP 36.4–36.6; O2SAT 94–100; BMI 22.8
--- NOTE | ~2024-10-11 | XR_ITS ---
EXAMINATION: XR retrograde pyelogram RT DATE: 10/11/2024 10:52 INDICATION: Right retrograde pyelogram TECHNIQUE: 47 fluoroscopic images of the abdomen and pelvis were obtained during procedure performed by Dr. Bowers. Radiologist was not present for the imaging or procedure. The amount of fluoroscopy ti me used during this procedure was 0.3 minutes. Total DAP was 0.192 mGym^2. COMPARISON: None. FINDINGS: Food Inspector images demonstrate cholecystectomy clips in the right upper quadrant. Subsequent images demonst rate retrograde cannulation and contrast injection into the right renal collecting system which appea rs normal. IMPRESSION: 1. Right retrograde myelogram demonstrating a normal-appearing right renal collecting system. See pro cedure note for further detail. Reviewed, dictated and finalized at location A. IMPRESSION: 1. Right retrograde myelogram demonstrating a normal-appearing right renal torrey ecting system. See procedure note for further detail.
--- NOTE | 2024-10-11 06:16 | WPDHPUPDATE1 ---
History and Physical Update Update Date/Time: 10/11/24 06:16 History and Physical has been reviewed, including an updated exam of the patient. There are NO changes in the patient's condition. Risks, benefits, and alternatives have been discussed and questions answered. Patient agrees to proceed with procedure.
--- NOTE | 2024-10-11 07:31 | P.PNAN_ITS ---
Anes - Initial Pre Proc Eval Procedure: Operation Date: 10/11/24 11:00 Proposed Procedures p Cystoscopy, Right Retrograde Pyelogram, Right Ureteroscopy, Jelmyto Instillation - Tacos Bowers MD Date/Time: 10/11/24 07:31 Surgeon: Tacos Bowers MD Pre Op Diagnosis: right urothelial CA Patient Data Age: 68 Gender: F Height: 1.66 m Weight: 63.05 kg Allergies Allergy/AdvReac Type Severity Reaction Status Date / Time amitriptyline (From Elavil) Allergy Unknown Confusion Verified 10/04/24 09:21 Penicillins Allergy Unknown Rash Verified 10/04/24 09:21 Sulfa (Sulfonamide Allergy Unknown Hives Verified 10/04/24 09:21 Antibiotics) sulfanilamide Allergy Unknown Hives Verified 10/04/24 09:21 ciprofloxacin AdvReac Intermediate Shakiness Verified 10/04/24 09:21 codeine AdvReac Unknown N/V Verified 10/04/24 09:21 tetracycline AdvReac Unknown Nausea Verified 10/04/24 09:21 doxycycline AdvReac Nausea and Verified 10/04/24 09:21 Vomiting Home Medications ?Medication ?Instructions ?Recorded ?Confirmed ?Type aspirin 81 mg tablet,delayed 81 mg PO DAILY 04/05/19 10/04/24 History release (Aspir-) hydrochlorothiazide 25 mg tablet 25 mg PO DAILY #90 tabs 08/27/20 10/04/24 Rx atorvastatin 40 mg tablet (Lipitor) 40 mg PO HS 01/10/21 10/04/24 History bupropion HCl 150 mg 24 hr tablet, 150 mg PO HS 01/10/21 09/20/24 History extended release (Wellbutrin XL) isosorbide mononitrate 30 mg 90 mg PO QACLUNCH 01/10/21 10/04/24 History tablet,extended release 24 hr nitroglycerin 0.4 mg sublingual 0.4 mg sublingual PRN CHEST PAIN 01/10/21 09/20/24 History tablet potassium chloride 10 mEq 10 meq PO DAILY 01/10/21 10/04/24 History tablet,extended release (K-Tab) venlafaxine 150 mg See Rx Instructions .Route .COMPLEX 03/02/22 10/04/24 History capsule,extended release 24 hr (Effexor XR) ranolazine 500 mg tablet,extended 500 mg PO Q12HR 30 days #60 tabs 03/04/22 10/04/24 Rx release,12 hr (Ranexa) cholecalciferol (vitamin D3) 125 125 mcg PO DAILY 11/12/22 10/04/24 History mcg (5,000 unit) tablet (Vitamin D3) hydrocodone 10 mg-acetaminophen 1 tablet PO PRN PRN pain 06/18/24 10/04/24 History 325 mg tablet oxybutynin chloride 10 mg 10 mg PO HS 06/18/24 10/04/24 History tablet,extended release 24 hr alprazolam 0.5 mg tablet 0.5 mg PO TID PRN anxiety 07/30/24 10/04/24 History carvedilol 12.5 mg tablet 12.5 mg PO BID 07/30/24 10/04/24 History cephalexin 500 mg capsule 500 mg PO Q8H #15 caps 08/09/24 09/20/24 Rx hydrocodone 5 mg-acetaminophen 325 1 - 2 tablet PO Q6H PRN pain #20 08/09/24 09/27/24 Rx mg tablet tabs mirabegron 50 mg tablet,extended 50 mg PO DAILY #30 tabs 08/09/24 09/20/24 Rx release 24 hr (Myrbetriq) ondansetron 4 mg disintegrating 4 mg PO Q6H PRN nausea and 08/14/24 09/20/24 Rx tablet vomiting #10 tabs icosapent ethyl 1 gram capsule 2 g PO BID 09/12/24 10/04/24 History quetiapine 300 mg tablet (Seroquel) 300 mg PO HS 09/12/24 10/04/24 History tolterodine 2 mg tablet 2 mg PO Q12H 09/12/24 10/04/24 History Patient hx anesthesia problems: none Family hx anesthesia problems: none Results Review: All pre-operative results and documents have been reviewed as part of the pre- operative evaluation. [facility] Past Medical History Medical History (Updated 10/11/24 @ 07:33 by Maxi Doyle DO) Chronic, continuous use of opioids Bipolar disorder, unspecified CAD (coronary artery disease) Hypertension Emphysema lung Screening for colon cancer Screening for breast cancer Postmenopausal Hx of pancreatitis Depression Kidney stones Kidney disease Urinary frequency High cholesterol Pneumonia Vision abnormalities Weight gain Cholecystectomy planned Anxiety Surgical History Surgical History H/O excision of mass 11/22/22 Excision of 5 cm perianal cyst History of cholecystectomy Hx of tonsillectomy History of partial hysterectomy H/O colonoscopy History of esophagogastroduodenoscopy (EGD) History of laryngoscopy Family History Family History Sibling Patient's brother is in good health Dementia Mother Family history of coronary artery disease Acute myocardial infarction Father Patient's father is Acute myocardial infarction Cerebrovascular accident Unknown Heart disease Cerebrovascular accident Other Family history of mental disorder Social History Social History Smoking packs per day: 1 Smoking cigarettes per day: 20.0 Years smoked: 52 Smoking pack-years: 52.00 Smoking status: Current every day smoker Tobacco type: cigarettes Second hand tobacco smoke exposure: No Alcohol intake: never Substance use: current Substance use type: marijuana Other substance usage details: Daily Last use: 09/12/24 Lack of Transportation: No Lack of Food: Never True Current Housing: I Have Housing Concerned About Future Housing: No Difficulty Paying Gas/Electric Bills: No Difficulty Paying for Meds: No Currently Unemployed: No Education: Decline to Answer Difficulty w/ Childcare or Family Care: No Living arrangements: alone Spiritual care concerns: No Anes - Eval Final PreProcedure Day of Procedure Patient weight: normal Heart: regular rate and rhythm Lungs: clear to auscultation Airway: Mallampati scale class II Neurological: alert and oriented Last oral intake: >/= 8 hours ASA classification: III Emergent: no Anesthetic plan: proceed Anesthesia type and monitoring: general LMA and standard monitoring
--- NOTE | 2024-10-11 07:34 | P.HP_ITS ---
History of Present Illness History of Present Illness Consent: Risks, benefits, and alternatives have been discussed and questions answered. Patient agrees to proceed with procedure. Chief complaint: right urothelial CA Narrative: Jeniffer Weller is a 68 year old female recently found to have low-grade papillary urothelial carcinoma the right upper urinary tract. She has undergone laser ablation. Follow-up surveillance cystoscopy and ureteroscopy showed a recurrence in the bladder and only a small area of concern near the right UPJ. It was again ablated. After discussion of options she has elected to proceed with cystoscopy with retrograde pyelography and a course of Jelmyto instilation. She is aware the risk including, but not limited to, recurrent neoplasm with need for further therapy, hematuria, ureteral stricture. Review of Systems Review of Systems: All systems reviewed & are unremarkable except as noted in HPI and below PMFSH Past Medical History Medical History (Updated 10/11/24 @ 07:33 by Maxi Doyle DO) Chronic, continuous use of opioids Bipolar disorder, unspecified CAD (coronary artery disease) Hypertension Emphysema lung Screening for colon cancer Screening for breast cancer Postmenopausal Hx of pancreatitis Depression Kidney stones Kidney disease Urinary frequency High cholesterol Pneumonia Vision abnormalities Weight gain Cholecystectomy planned Anxiety Surgical History Surgical History H/O excision of mass 11/22/22 Excision of 5 cm perianal cyst History of cholecystectomy Hx of tonsillectomy History of partial hysterectomy H/O colonoscopy History of esophagogastroduodenoscopy (EGD) History of laryngoscopy Family History Family History Sibling Patient's brother is in good health Dementia Mother Family history of coronary artery disease Acute myocardial infarction Father Patient's father is Acute myocardial infarction Cerebrovascular accident Unknown Heart disease Cerebrovascular accident Other Family history of mental disorder Social History Social History Smoking packs per day: 1 Smoking cigarettes per day: 20.0 Years smoked: 52 Smoking pack-years: 52.00 Smoking status: Current every day smoker Tobacco type: cigarettes Second hand tobacco smoke exposure: No Alcohol intake: never Substance use: current Substance use type: marijuana Other substance usage details: Daily Last use: 09/12/24 Lack of Transportation: No Lack of Food: Never True Current Housing: I Have Housing Concerned About Future Housing: No Difficulty Paying Gas/Electric Bills: No Difficulty Paying for Meds: No Currently Unemployed: No Education: Decline to Answer Difficulty w/ Childcare or Family Care: No Living arrangements: alone Spiritual care concerns: No Meds Home Medications and Allergies Home Medications ?Medication ?Instructions ?Recorded ?Confirmed ?Type aspirin 81 mg tablet,delayed 81 mg PO DAILY 04/05/19 10/04/24 History release (Aspir-) hydrochlorothiazide 25 mg tablet 25 mg PO DAILY #90 tabs 08/27/20 10/04/24 Rx atorvastatin 40 mg tablet (Lipitor) 40 mg PO HS 01/10/21 10/04/24 History bupropion HCl 150 mg 24 hr tablet, 150 mg PO HS 01/10/21 09/20/24 History extended release (Wellbutrin XL) isosorbide mononitrate 30 mg 90 mg PO QACLUNCH 01/10/21 10/04/24 History tablet,extended release 24 hr nitroglycerin 0.4 mg sublingual 0.4 mg sublingual PRN CHEST PAIN 01/10/21 09/20/24 History tablet potassium chloride 10 mEq 10 meq PO DAILY 01/10/21 10/04/24 History tablet,extended release (K-Tab) venlafaxine 150 mg See Rx Instructions .Route .COMPLEX 03/02/22 10/04/24 History capsule,extended release 24 hr (Effexor XR) ranolazine 500 mg tablet,extended 500 mg PO Q12HR 30 days #60 tabs 03/04/22 10/04/24 Rx release,12 hr (Ranexa) cholecalciferol (vitamin D3) 125 125 mcg PO DAILY 11/12/22 10/04/24 History mcg (5,000 unit) tablet (Vitamin D3) hydrocodone 10 mg-acetaminophen 1 tablet PO PRN PRN pain 06/18/24 10/04/24 History 325 mg tablet oxybutynin chloride 10 mg 10 mg PO HS 06/18/24 10/04/24 History tablet,extended release 24 hr alprazolam 0.5 mg tablet 0.5 mg PO TID PRN anxiety 07/30/24 10/04/24 History carvedilol 12.5 mg tablet 12.5 mg PO BID 07/30/24 10/04/24 History cephalexin 500 mg capsule 500 mg PO Q8H #15 caps 08/09/24 09/20/24 Rx hydrocodone 5 mg-acetaminophen 325 1 - 2 tablet PO Q6H PRN pain #20 08/09/24 09/27/24 Rx mg tablet tabs mirabegron 50 mg tablet,extended 50 mg PO DAILY #30 tabs 08/09/24 09/20/24 Rx release 24 hr (Myrbetriq) ondansetron 4 mg disintegrating 4 mg PO Q6H PRN nausea and 08/14/24 09/20/24 Rx tablet vomiting #10 tabs icosapent ethyl 1 gram capsule 2 g PO BID 09/12/24 10/04/24 History quetiapine 300 mg tablet (Seroquel) 300 mg PO HS 09/12/24 10/04/24 History tolterodine 2 mg tablet 2 mg PO Q12H 09/12/24 10/04/24 History Allergies Allergy/AdvReac Type Severity Reaction Status Date / Time [facility] Allergy Unknown Confusion Verified 10/04/24 09:21 Penicillins Allergy Unknown Rash Verified 10/04/24 09:21 Sulfa (Sulfonamide Allergy Unknown Hives Verified 10/04/24 09:21 Antibiotics) sulfanilamide Allergy Unknown Hives Verified 10/04/24 09:21 ciprofloxacin AdvReac Intermediate Shakiness Verified 10/04/24 09:21 codeine AdvReac Unknown N/V Verified 10/04/24 09:21 tetracycline AdvReac Unknown Nausea Verified 10/04/24 09:21 doxycycline AdvReac Nausea and Verified 10/04/24 09:21 Vomiting Exam Const: General: no acute distress Resp: Effort & Inspection: normal respiratory effort GI: Inspection: non-distended GI Palp: No abdominal tenderness and No Guarding due to palpation present (GI) Auscultation: normal bowel sounds Assessment and Plan Assessment and plan (1) 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
[2024-10-11] MEDS: LACTATED RINGERS 1,000 ML 30 ML IV CONT (09:15)
[2024-10-11] MEDS: SODIUM BICARBONATE TAB 650 MG TABLET 1300 MG PO (10:05)
[2024-10-11] MEDS: ceFAZolin 2 GM/D5W 50 ML 2 GM/50 ML BAG IVPB (10:26)
[2024-10-11] MEDS: LIDOCAINE 2% GEL UROJET 10 ML PKG MUCOUS MEM (10:34)
[2024-10-11] MEDS: MITOMYCIN 36 MG URETHRAL (10:43)
--- NOTE | 2024-10-11 10:51 | W.PM.PROC2 ---
Procedure Note - Detailed Date of Procedure 10/11/24 Pre-op Diagnosis Right renal pelvic urothelial CA Post-op Diagnosis Same Procedure Performed Cystoscopy, right retrograde pyelography right Jelmyto installation Surgeon Tacos Bowers MD Anesthesia General Description of Procedure Patient is brought to the operative suite where she was prepped and draped in routine sterile fashion while in dorsal lithotomy position after the uneventful induction of a general LMA anesthetic. A 19F rigid cystoscope was placed in the bladder. The bladder was carefully inspected. Mucosa is normal without hyperemia. There was no intravesical neoplasm. A 0.035 in glidewire was advanced in the right renal pelvis and a ureteral catheter was advanced over the guidewire. The retrograde pyelogram was obtained to ensure appropriate positioning of the ureteral catheter in the collecting system. Prior retrograde pyelography had determined a renal pelvic volume of 9cc. We opted to use that prior volume determination for today's instillation. After appropriate reconstitution of the Jelmyto in ice retrograde injection was undertaken through the same ureteral catheter positioned at the UPJ. A total of 9mL (36 mg) of Jelmyto was instilled in the renal pelvis without incident. The volume of Jelmyto wasted was 11 mL (44 mg). the ureteral catheter was allowed to stand for 60 seconds and then removed with ease. Because the patient has no history of ureteral stricture I opted not to place a ureteral stent. Patient tolerated the procedure well was taken to the recovery room in good condition.
== END 2024-10-11 12:50 | disposition home or self-care (01) ==
PROVIDERS: PCP Student in an Organized Health Care Education/Training Program; Visit Provider Urology
PROC: (CPT 52352; principal; 2024-10-11 11:00)
DX: C65.1 Malignant neoplasm of right renal pelvis (principal); C66.1 Malignant neoplasm of right ureter; F17.210 Nicotine dependence, cigarettes, uncomplicated; F12.90 Cannabis use, unspecified, uncomplicated
CPT/HCPCS: C9789; 74420; A9270; C1758; C1769; J0690; J2003; J2371; J2405; J2704; J3010; J7120; J9281; Q9966

== ENCOUNTER 2024-10-18 01:19 | Day surgery (SDC) | payer MEDICARE, MEDICAID, SELFPAY ==
[2024-09-20 14:34] VITALS: BMI 22.7
--- NOTE | 2024-09-20 14:35 | PC.NURSE ---
NO CHANGE IN HEALTH HX. OR MEDS .WILL CALL IF ANY CHANGES
--- NOTE | 2024-09-20 14:36 | PC.NURSE ---
Report to the Outpatient Waiting Room, entrance under the green pavilion located off [facility], at time __10 AM on date _10/16/24 . Planned Procedure Time:1200 NOON .? Time changes happen often and if your time is changed the preop area will call you the afternoon before. - You and your visitor will be asked to self-screen and do not enter if you have any COVID symptoms. Please call surgeon if you need to reschedule. - A mask is optional within the hospital at this time. Patients may have clear liquids (water, carbonated beverages, clear teas, apple juice) until 3 hours prior to surgery (9AM) with a maximum of 20 ounces. - No food from midnight until time of surgery and no smoking, or chewing tobacco (or any form of nicotine). No chewing gum, candy or mints. Take only the following medications with a SIP of water on the morning of surgery: ___ALPRAZOLAM,CARVEDILOL,HYDROCODONE IF NEEDED FOR PAIN,VENLAFAXINE,RANOLAZINE DO NOT STOP ANY OF YOUR OTHER PRESCRIPTION MEDICATIONS PRIOR TO SURGERY EXCEPT THE FOLLOWING Hold all vitamins and supplements for 3 days per anesthesiologist.LAST DOSE 10/12/24 Medications to discontinue per physician ASPIRIN ON HOLD SINCE 09/19/24 Please no make-up, nail equatorial guinean, hairspray, perfume, deodorant, or body powder the day of surgery.? No jewelry (including any body piercings) or valuables the day of surgery, leave them at home.? Please take a shower or bath the night before, or the morning of, surgery with an antibacterial soap.? Wear comfortable, loose fitting clothing.? Children are encouraged to wear pajamas. - Jewelry must be removed prior to entering the operating room.? Rings and piercings that are not removed may be cut off. - The hospital will not accept responsibility for valuables.? - Please leave all valuables, including medications, at home the day of surgery. If you are going home after surgery, a licensed stacker driver must drive you home.? - NO public transportation without another adult if you receive anesthesia. - We recommend that an adult stay with you for 24 hours following discharge. - We also recommend that you do not drive, make important decision, drink alcoholic beverages, or take any drugs that were not prescribed by your health care provider for at least 24 hours after your discharge time. For Pediatric surgeries, we recommend two adults accompany the child home. Follow any additional instructions given to you from your surgeon. Telephone instructions given to _PATIENT and asked if any additional questions and then verbalized understanding. Patient advised to call surgeon office or pre surgery nurse liaison [phone] if any additional questions.
--- NOTE | 2024-10-15 10:50 | PC.NURSE ---
Report to the Outpatient Waiting Room, entrance under the green pavilion located off [facility], at time _1130 on date __10/18/24 . Planned Procedure Time: __1330 .? Time changes happen often and if your time is changed the preop area will call you the afternoon before. - You and your visitor will be asked to self-screen and do not enter if you have any COVID symptoms. Please call surgeon if you need to reschedule. - A mask is optional within the hospital at this time. Patients may have clear liquids (water, carbonated beverages, clear teas, apple juice) until 3 hours prior to surgery ( 10:30 AM) with a maximum of 20 ounces. - No food from midnight until time of surgery and no smoking, or chewing tobacco (or any form of nicotine). No chewing gum, candy or mints. - Take only the following medications with a SIP of water on the morning of surgery: ___ALPRAZOLAM,CARVEDILOL,HYDROCODONE IF NEEDED FOR PAIN,VENLAFAXINE,RANOLAZINE DO NOT STOP ANY OF YOUR OTHER PRESCRIPTION MEDICATIONS PRIOR TO SURGERY EXCEPT THE FOLLOWING Hold all vitamins and supplements for 3 days per anesthesiologist.LAST DOSE 10/14/24 Medications to discontinue per physician ___ASPIRIN ON HOLD SINCE 09/19/24 Date to take last dose Please no make-up, nail korean, hairspray, perfume, deodorant, or body powder the day of surgery.? No jewelry (including any body piercings) or valuables the day of surgery, leave them at home.? Please take a shower or bath the night before, or the morning of, surgery with an antibacterial soap.? Wear comfortable, loose fitting clothing.? Children are encouraged to wear pajamas. - Jewelry must be removed prior to entering the operating room.? Rings and piercings that are not removed may be cut off. - The hospital will not accept responsibility for valuables.? - Please leave all valuables, including medications, at home the day of surgery. If you are going home after surgery, a licensed logging truck driver must drive you home.? - NO public transportation without another adult if you receive anesthesia. - We recommend that an adult stay with you for 24 hours following discharge. - We also recommend that you do not drive, make important decision, drink alcoholic beverages, or take any drugs that were not prescribed by your health care provider for at least 24 hours after your discharge time. For Pediatric surgeries, we recommend two adults accompany the child home. Follow any additional instructions given to you from your surgeon. Telephone instructions given to _PATIENT and asked if any additional questions and then verbalized understanding. Patient advised to call surgeon office or pre surgery nurse liaison [phone] if any additional questions.
[2024-10-18] VITALS (9 sets, daily range): BP systolic 108–140; BP diastolic 51–72; PULSE 70–75; RESP 12–20; TEMP 36.6–36.9; O2SAT 94–100; BMI 22.7
--- NOTE | ~2024-10-18 | XR_ITS ---
XR retrograde pyelogram RT Ordering provider: Tacos Bowers MD History: . RIGHT RETRO . Comparison: None. FINDINGS/impression: Fluoroscopy time is 39.9 seconds. Cumulative dose is 9.43 mGy. Right retrograde pyelography. Reviewed, dictated and finalized at location A.
--- OUTSIDE RECORDS SUMMARY | 2024-10-18 01:23 | XMS_ITS | Clinical Summary ---
Author Organization [facility] Address [address] [place] [address] Care Team Providers Care Inspector Packager Name Role Phone Unavailable Primary Care Provider Unavailabl e Source Comments [facility],non-owned Affiliates and Associated Physician Practices is amultiple site organization consisting of ambulatory clinics and hospital sitesin [place], [place] and [place]. This disclosure is being madepursuant to the Care Everywhere program and may not contain all information available regarding this patient. 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 MANAGED MEDICARE [place] [address] MEDICAID - [place] SELF PAY NO INSURANCE Member Subscriber Plan / Payer (Ef fective for All Dates) Name:Jeniffer Vargas Member ID:Not on file Relation to Subscriber:Not on file Name:JENIFFER VARGAS Subscriber ID:Not on file (Home) Address: [address] [place] [id number] Payer ID:Not on file Group ID:Not on file Type:Self Pay Address: [place], [place] [facility] MANAGED MEDICARE ADV
--- OUTSIDE RECORDS SUMMARY | 2024-10-18 01:23 | XMS_ITS | Encounter Summary ---
Author Organization [facility] Address [facility] [place] [address] Care Team Providers Care Flight Deck Officer Name Role Phone Jimmy Doyle Primary Care Provider + Reason for Visit * Reason Comments Lab (SCAN) Encounter Details Date Type Department Care Team (Latest Contact Info) Description 10/10/2024 Scan HEALTH INFO [facility] Scanned, Doc Med Group Lab (SCAN) Social History Tobacco Use Types Packs/Day Years Used Date Smoking Tobacco: Every Day Cigarettes 1 55.2 Started: [birth year]/19/1967 Smokeless Tobacco: Never Comments:trying to quit. 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 certified substance abuse counselor Alcohol Use Standard Drinks/Week Comments Never [...] Sex Assigned at Female 05/03/2024 9:57 AM DATA MANAGEMENT ANALYST Legal Sex Female 4:45 PM CDT Gender Identity Female 05/03/2024 9:57 AM DATA MANAGEMENT ANALYST Sexual Orientation Not on file documented as [...] Description 11/05/2024 10:20 AM CDT Office Visit [facility] Family & Internal Medicine - [address] [address] Jimmy Doyle DO [address] [place] [address] 03/22/2025 11:45 AM DATA MANAGEMENT ANALYST Office Visit [facility] [address] Abhi Aguilar MD [address] [place] [address] [place] [phone] documented as of this encounter Goals Goal Patient Goal Type Associated Problems Recent Progress Patient-Stated? Author Patient will return to prior living situation and remain independent in ADLs upon discharge from [facility] Daysi Nayak RN documented as of this encounter Procedures Procedure Name Priority Date/Time Associated Diagnosis Comments OUTSIDE LAB (SCAN ORDER) 10/10/2024 documented in this encounter Results * OUTSIDE LAB (SCAN ORDER) (10/10/2024) 10/10/2024 us Doc Med [facility] Scanned SCANNING Final Resu lt documented in this encounter Visit Diagnoses Not on filedocumented in this encounter Additional Health Concerns Assessment Noted Time PHQ-9 Depression Total Score: 10 025 9:55 AM DATA MANAGEMENT ANALYST documented as of this encounter Care Teams Flight Deck Officer Relationship Specialty Start Date End Date Jimmy Doyle DO [address] [place] [address] PCP - General FAMILY PRACTICE 08/19/20 documented as of this encounter
--- OUTSIDE RECORDS SUMMARY | 2024-10-18 01:23 | XMS_ITS | Data Portability ---
Author Organization [place] [facility] OFFICE Address [address] [place] [address] Care Team Providers Care Asphalt Engineer Name Role Phone JESUS MACEDO Primary Care Provider JESUS MACEDO Referring Provider [phone] Assessment No assessment recorded. Plan of Treatment [...] By Organization Details Last Modified Time 04/30/2020 98314 Exercise advised Low cholesterol diet advised Low sodium diet advised [email or web address] Not available 04/30/2020 16:38:42 Scribed by Kamila Michele [facility]- [email or web address] Not available 04/30/2020 16:38:44 Reason for Referral None Reported. Results Created Date Observation Date Name Description Value Unit Range Abnormal Flag Note LastModifiedBy Organization Detail LastModifiedTime 05/02/1904/30/2020 jonathan rocar diogr am No observ ation record [...] bibasiller atelectasis or infection,clinical correlation. Efra Whitman [facility] 05/03/2020 10:01:32 D-dimer Feu, Qn, Ia, Blood : D-dimer 04/01/20:0.37 Efra Whitman [facility] 05/03/2020 09:54:26 Cbc W/ Diff : 04/01/20:WBC 7.6,RBC 4.68,HGB 14.8,HCT 41.8,PLT 251. Efra Whitman [facility] 05/03/2020 09:50:44 Cmp, Serum Or Plasma : 04/02/20:Na 139,K 3.4,Cl 102,CO2 32,GLU 99,BUN 11,Cr 0.6,Mg 2.1 Efra Whitman [facility] 05/03/2020 09:54:26 Lipid Panel, Blood : 04/02/20: TC 167,TG 220,LDL 107,HDL 30. Efra Whitman [facility] 05/03/2020 09:54:26 Problems Name Problem SNOMED Code Status Onset Date Resolution Date Notes Provider Name and Address Organization Details Recorded Time Essential hypertension 62931107 Active 2020 [facility] 15:22:30 Cerebrovascula r accident 614042885 Active 2020 [facility] 15:22:39 Hypercholester olemia 18260097 Active 2020 [facility] 15:22:56 Depressive disorder 17247535 Active 2020 [facility] 15:23:04 Problem Notes None recorded. Procedures Surgical History Date Name Laterality Status Provider Name and Address Organization Details Recorded Time Hysterectomy completed [facility] 04/30/2020 15:24:35 Cholecystectomy completed [facility] 04/30/2020 15:24:43 Imaging Results None recorded. Procedure Notes None recorded. Medical Equipment None Reported. Allergies Allergen ID Allergen Name Allergen Category Reaction Reaction Severity Criticality Documentation Date Start Date Code Code System Note Provider Name and Address Organization Details Recorded Time 47468 sulfobrom ophthalei n sodium medicatio n Not available Not available Not available 04/30/2020 56771 0 RxNorm Renae Edwin [facility], [facility] 15:21:51 55994 tetracycl ine medicatio n Not available Not available Not available 04/30/2020 23340 RxNorm Renae Edwin [facility], [place] [facility] 15:22:03 Medications Name Sig Start [...] Last Updated DateTime 165.1 cm 28.3 kg/m2 61371.7 g 84 /min 18 /min 94 % 94 % 97.2 [degF] 170 mm[Hg] 100 mm[Hg] Renae [facility] 15:31:15 Social History Question Answer Notes LastModified by Organizat ion Details LastModified Time Tobacco Smoking Status Current Every Day Smoker Renae Pineda [facility] 04/30/2020 15:23:42 Do You Have An Advance Directive? No [facility] Information not available 04/30/2020 What Is Your Level Of Caffeine Consumption? None [place] [address] Information not available 04/30/2020 How Much Tobacco Do You Chew? None [place] [address] Information not available 04/30/2020 What Type Of Diet Are You Following? REGULAR [facility] Information not available 04/30/2020 Which Illicit Or Recreational Drugs Have You Used? No [facility] Information not available 04/30/2020 Live Alone Or With Others? With Others [place] [address] Information not available 04/30/2020 Marital Status Single [facility] Informatio n not available 04/30/2020 How Many Children Do You Have? 1 [facility] Information not available 04/30/2020 How [...] SNOMED-CT Code Diagnosis ICD10 Code Diagnosis Note 84086 MD Izzy Naqvi Office [address] [facility] [place] [address] [place] [address] 04/30/2020 14:29:44 04/30/2020 15:51:37 Atypical chest pain 648012652 R07.89 Treadmill Myoview Stress test, has high Winn Risk score. Has Known CAD, or CAD risk equivalent . To look for any ischemia. 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 Cessation highly advised Essential hypertension 40729877 I10 Hyperlipidemia 51291372 E78.5 Needs to keep LDL less than 100, and HDL more than 40.Current ly not on statin therapyWil l get fasting lipids for follow-up Peripheral vascular disease 943723327 I73.9 Will get arterial doppler, to evaluate severity of peripheral vascular disease Health Concerns Section Related Observation LastModified by Organization Detai ls LastModified Time None Recorded Concern Status LastModified by Organization Details LastModified Time None Recorded Advance Directives Directive N: Payers Insurance Date Sequence Insurance Name Policy Number Policy Brown Covered Member ID Brown Member ID Guarantor Name 04/27/2020 2 [place] DEPARTMENT OF PUBLIC AID Jeniffer Weller [id number] Jeniffer Weller 04/27/2020 1 [place] Jeniffer Weller [id number] Jeniffer Weller Notes Date Note Type Note Provider Name and Address Organization Details Recorded Time 04/30/2020 text/html 04/30/2020 CC: chest pain Patient is a 64-year-old female with a past medical history of HLD, HTN, COPD, and CKD who is seen in cardiac consultation with a chief complaint of chest pain and hospital follow-up. She was admitted to [facility] on 04/01/2020 with chest pain. Her cardiac [...] She denies ETOH abuse. Merrick Lin MD [address] [place], [address], [place] [facility] 04/30/2020 16:39:25 OBGyn Episode No OBEpisode recorded.
--- OUTSIDE RECORDS SUMMARY | 2024-10-18 01:23 | XMS_ITS | Encounter Summary ---
Author Organization [facility] Address [address] [place] [address] Care Team Providers Care Dermatology Specialist Name Role Phone Unavailable Primary Care Provider Unavailabl e Encounter Details Date Type Department Care Team (Late st Contact Info) Description 01/28/2022 Lab Requisition [facility] [address] [place] [address] Kathy Mason MD [address] [place], [place] [id number] Illness, unspecified Social History Tobacco Use Types Packs/Day Years Used Date Smoking Tobacco: Never Assessed Comments Unknown Sex and Gender Information Value Date Recorded Sex Assigned at Not on file Legal Sex Female 6:27 PM DIRECTOR OF CODING Gender Identity Not on file Sexual Orientation [...] 10:46 AM CDT) Final Diagnosis URINE/VOIDED (OSC: [id number]; 01/25/2022): - Negative for high grade urothelial carcinoma 01/28/2022 12:22 PM CDT [facility] at 1222 CDT Microscopic Description and Comment Microscopic examination substantiates the final diagnosis. 01/28/2022 12:22 PM CDT [facility] Clinical History HEMATURIA 01/28/2022 12:22 PM CDT [facility] Materials Received One thin prep slide received from [facility] [id number]. All material will be returned. 01/28/2022 12:22 PM CDT [facility] Disclaimer The performance characteristics of all immunohistochemical and indirect immunofluorescence stains (if any) cited in this report were determined by the Histopathology [facility] of [facility]. Some of these tests were developed by [...] attending (teaching) pathologist. 01/28/2022 12:22 PM CDT [facility] Case Report Surgical Pathology Report Case: [id number] Authorizing Provider: Kathy Mason MD Collected: 01/28/2022 10:46 AM Ordering Location: [facility] Received: 01/28/2022 10:51 AM Pathologist: Flaquito Bruno MD Specimen: Slide Consultation 01/28/2022 12:22 PM CDT [facility] Embedded Images 01/28/2022 12:22 PM CDT [facility] Pathology/Cytolo gy SURGICAL PATHOLOGY CONSULTATION AND REPORT ON REFERRED SLIDES PREPARED ELSEWHERE / Unknown 01/28/2022 10:46 AM CDT 01/28/2022 10:51 AM CDT Kathy Mason MD LAB - PATHOLOGY/CYTOLOGY ORDERAB LES Final Result [facility] [address] [facility] [place] [address], [facility] [phone] documented in this encounter Visit Diagnoses Diagnosis Illness, unspecified documented in this encounter
--- OUTSIDE RECORDS SUMMARY | 2024-10-18 01:23 | XMS_ITS | Clinical Summary ---
Author Organization [facility] Address [facility] [place] [address] Care Team Providers Care Transcript Clerk Name Role Phone Jimmy Doyle Primary Care Provide r Derrell Varma MD Unavailable [phone] Allergies Active Allergy Reactions Criticality Noted [...] file Legal Sex Female 12:04 PM MANAGER DIALYSIS Gender Identity Not on file Sexual Orientation [...] Zoster Vaccine Completed 04/06/2021, 01/27/2021 Insurance [facility] MEDICARE ADVANTAGE [facility] MEDICARE ADVANTAGE [facility] MEDIC[facility] ADVANTAGE [facility] Advance Directives For more information, please contact: [phone] * Full Code (Latest Code Status on File) Date Activated Date Inactivated Comments 02/09/2022 9:51 PM 02/12/2022 5:52 PM Care Teams Transcript Clerk Relationship Specialty Start Date End Date Jimmy Doyle DO [address] [place] [address] [id number] PCP - General Family Medicine 02/12/22 Derrell Varma MD [address] [place] [address] Surgeon Surgery 02/12/22
--- OUTSIDE RECORDS SUMMARY | 2024-10-18 01:23 | XMS_ITS | Encounter Summary ---
Author Organization [facility] Address [facility] [place] [address] Care Team Providers Care School Psychometrist Name Role Phone Jimmy Doyle Primary Care Provider + Encounter Details Date Type Department Care Team (Late st Contact Info) Description 01/11/2022 Abstract [facility]-[address] [address] Doni [place] Social History Tobacco Use Types Packs/Day Years Used Date Smoking Tobacco: Every Day Cigarettes 1 55.2 Started: 08/19/1967 Smokeless Tobacco: Never Comments:trying to quit. 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 substance abuse counselor Alcohol Use Standard Drinks/Week [...] Sex Assigned at Female 05/03/2024 9:57 AM WOODEN BOX MAKER Legal Sex Female 4:45 PM CDT Gender Identity Female 05/03/2024 9:57 AM WOODEN BOX MAKER Sexual Orientation Not on file COVID-19 [...] Description 11/05/2024 10:20 AM CDT Office Visit [facility] Family & Internal Medicine - [address] [address] Jimmy Doyle DO [address] [place] [address] 03/22/2025 11:45 AM WOODEN BOX MAKER Office Visit [facility]-[address] [address] Abhi Aguilar MD [address] [place] [phone] documented as of this encounter Goals [...] Total Score: 8 05/13/19 22 10:36 AM WOODEN BOX MAKER documented as of this encounter Care Teams School Psychometrist Relationship Specialty Start Date End Date Jimmy Doyle DO [address] [place] [address] PCP - General FAMILY PRACTICE 08/19/20 documented as of this encounter
--- OUTSIDE RECORDS SUMMARY | 2024-10-18 01:23 | XMS_ITS | Referral Summary ---
Author Organization [facility] Address [facility] [place] [address] Care Team Providers Care Product Strategy Director Name Role Phone Jimmy Doyle Primary Care Provide r Derrell Varma MD Unavailable [phone] Allergies Active Allergy Reactions Criticality Noted [...] on file Legal Sex Female 12:04 PM PICCOLOIST Gender Identity Not on file Sexual Orientation [...] Treatment Not on file Insurance IDPA [facility] MEDICARE ADVANTAGE [employer] [facility] MEDICARE ADVANTAGE [facility] MEDICARE ADVANTAGE [place] Advance Directives For more information, please contact: [phone] * Full Code (Latest Code Status on File) Date Activated Date Inactivated Comments 02/09/2022 9:51 PM 02/12/2022 5:52 PM Care Teams Product Strategy Director Relationship Specialty Start Date End Date Jimmy Doyle DO [address] [place] [address] PCP - General Family Medicine 02/12/22 Derrell Varma MD [address] [facility] [address] [place] [address] Surgeon Surgery 02/12/22
--- OUTSIDE RECORDS SUMMARY | 2024-10-18 01:23 | XMS_ITS | Encounter Summary ---
Author Organization [facility] Address [facility] [place] [address] Care Team Providers Care Licensed Journeyman Electrician Name Role Phone New Referring, Provider Primary Care Provider Un available Jimmy Doyle DO Primary Care Provider + Encounter Details Date Type Department Care Team (Latest Contact Info) Description 12/12/2017 Abstract [facility] , Farhana Aguilera MD Social History Tobacco Use Types Packs/Day Years Used Date Smoking Tobacco: Never Assessed Comments Unknown Sex and Gender Information Value Date Recorded Sex Assigned at Female 05/03/2024 9:57 AM DIRECTOR OF PERSONNEL Legal Sex Female 4:45 PM CDT Gender Identity Female 05/03/2024 9:57 AM DIRECTOR OF PERSONNEL Sexual Orientation Not on file documented as of this encounter Plan of Treatment Upcoming Encounters Date Type Department Care Team (Late st Contact Info) Description 11/05/2024 10:20 AM CDT Office Visit [facility] Family & Internal Medicine - [address] [address] Jimmy Doyle DO [address] [place] [address] 03/22/2025 11:45 AM DIRECTOR OF PERSONNEL Office Visit [facility]-[address] [address] Abhi Aguilar MD [address] [place] [phone] documented as of this encounter Visit Diagnoses Not on filedocumented in this encounter Additional Health Concerns Infection Onset Date Last Indicated Resolved Time COVID-19 Rule Out 01/13/2022 01/13/2022 01/13/2022 9:32 AM CDT COVID-19 Rule Out 01/13/2022 01/13/2022 01/13/2022 9:59 AM CDT COVID-19 Rule Out 01/27/2023 01/27/2023 01/27/2023 11:28 AM CDT documented as of this encounter Care Teams Licensed Journeyman Electrician Relationship Specialty Start Date End Date New Referring, Provider PCP - General UNKNOWN PHYSICIAN SPECIALTY 01/25/18 08/18/20 Jimmy Doyle DO [address] [place] [address] PCP - General FAMILY PRACTICE 08/19/20 documented as of this encounter
--- OUTSIDE RECORDS SUMMARY | 2024-10-18 01:23 | XMS_ITS | Encounter Summary ---
Author Organization [facility] Address [facility] [place] [address] Care Team Providers Care Slip Feeder Name Role Phone Jimmy Doyle Primary Care Provider + Reason for Visit * Reason Comments Image (SCAN) Procedure (SCAN) Encounter Details Date Type Department Care Team ([facility] Contact Info) Description 10/11/2024 Scan HEALTH INFO SRVCS Scanned, Doc Med Group Image (SCAN); Procedure (SCAN) Social History Tobacco Use Types Packs/Day Years Used Date Smoking Tobacco: Every Day Cigarettes 1 55.2 Started: [birth year]/19/1967 Smokeless Tobacco: Never Comments:trying to quit. 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 recreation counselor Alcohol Use Standard Drinks/Week Comments Never [...] Sex Assigned at Female 05/03/2024 9:57 AM MANAGER OPERATIONAL Legal Sex Female 4:45 PM CDT Gender Identity Female 05/03/2024 9:57 AM MANAGER OPERATIONAL Sexual Orientation Not on file documented as [...] Description 11/05/2024 10:20 AM CDT Office Visit [facility] Family & Internal Medicine - [address] [address] Jimmy Doyle, [address] [place] [address] 03/22/2025 11:45 AM MANAGER OPERATIONAL Office Visit [facility] [address] Abhi Aguilar MD [address] [place] [address] Suite [facility] [place] [address] documented as of this encounter Goals Goal Patient Goal Type Associated Problems Recent Progress Patient-Stated? Author Patient will return to prior living situation and remain independent in ADLs upon discharge from [facility] General No Hastings, Daysi K, RN documented as of this encounter Procedures Procedure Name Priority Date/Time Associated Diagnosis Comments IMAGE GENERIC 10/11/2024 PROCEDURE GENERIC (SCAN ORDER) 10/11/2024 documented in this encounter Results * PROCEDURE GENERIC (SCAN ORDER) (10/11/2024) 10/11/2024 us [employer] [facility] Scanned SCANNING Final Resu lt * IMAGE GENERIC (10/11/2024) Anatomical Region Laterality Modality Other 10/11/2024 us [employer] [facility] Scanned SCANNING Final Resu lt documented in this encounter Visit Diagnoses Not on filedocumented in this encounter Additional Health Concerns Assessment Noted Time PHQ-9 Depression Total Score: 10 025 9:55 AM MANAGER OPERATIONAL documented as of this encounter Care Teams Slip Feeder Relationship Specialty Start Date End Date Jimmy Doyle DO [address] [place] [phone] PCP - General FAMILY PRACTICE 08/19/20 documented as of this encounter
--- OUTSIDE RECORDS SUMMARY | 2024-10-18 01:23 | XMS_ITS | Clinical Summary ---
Author Organization [facility] Address [facility] [place] [address] Care Team Providers Care In Home Aide Name Role Phone Starla Arshad Vladimir QURESHI [...] capsuleIndications :Bipolar affective disorder, currently depressed, mild ([facility]) TAKE 1 CAPSULE(150 MG) BY MOUTH DAILY 90 capsule 09/04/19 25 Active tolterodine (DETROL) 2 MG tablet [...] for Pain. Indications: Chronic Pain 90 tablet 10/17/19 25 Active ALPRAZolam (XANAX) 0.5 MG tabletIndications: Anxiety Take 1 tablet (0.5 mg total) by mouth 3 (three) times daily as needed for Anxiety. 90 tablet 08/17/19 25 025 Discontinu ed(Reorder ) HYDROcodone-acetam inophen (NORCO) 10-325 MG tabletIndications: Chronic Pain Take 1 tablet by mouth every 8 (eight) hours as needed for Pain. Indications: Chronic Pain 90 tablet 09/12/19 25 025 Discontinu ed(Reorder ) ciprofloxacin-dexa methasone (CIPRODEX) otic suspensionIndicati ons:Other infective acute otitis externa of right ear Place 4 drops into the right ear 2 (two) times daily for 10 days. 7.5 mL 09/13/19 25 025 Active Problems Problem Noted Date Diagnosed Date Ureteral cancer, right ([facility]) 025 Bipolar affective disorder, currently depressed, mild ([facility]) 05/03/2023 Sedative, hypnotic or anxiol ytic dependence, uncomplicated ([facility]) 03/25/2022 PAD (peripheral artery disease) 02/19/2022 Right iliac artery stenosis 02/19/2022 Allergies 07/31/2021 Right lower quadrant abdominal pain 07/31/2021 Tobacco abuse 07/31/2021 Radiculopathy, lumbar region 12/29/2020 Other intervertebral disc degeneration, lumbar r egion 12/29/2020 Spondylolisthesis of lumbar region 12/29/2020 Coronary artery disease of n ative artery of [place] heart with stable angina pectoris 10/01/2020 Degenerative [...] 08/18/2020 Nausea 08/18/2020 Nicotine dependence 08/18/2020 On bed bug exterminator drug therapy 08/18/2020 Polyarthritis 08/18/2020 Postmenopausal status 08/18/2020 Primary osteoarthritis of left knee 08/18/2020 Triggering of digit 08/18/2020 Vitamin D deficiency 08/18/2020 Cerebrovascular accident ([facility]) 04/30 Body mass index (BMI) of 28.0 to 28.9 in adult 0 10/12/2018 Low back pain 10/12/2018 Muscle spasm 02/03/2018 Lumbar foraminal stenosis 01/17/2018 Bulging lumbar disc 01/16/2018 Hypertension 01/16/2018 GERD (gastroesophageal reflux disease) 8 Lumbar stenosis 01/16/2018 Osteoarthrosis 01/16/2018 Depressive disorder 01/16/2018 Chronic obstructive pulmonary disease ([facility]) 01/16/2018 Hyperlipidemia 01/16/2018 Resolved Problems Problem Noted Date Diagnosed Date Resolved Date Screening for breast cancer 08/18/2020 08/25/2020 Infiltrate of lung present on chest x-ray 08/18/2020 05/03/2024 Encounter for preventive health examination 02/13/2014 08/25/2020 Encounters Date Type Department Care Team Description 10/16/2024 Telephone [facility] [address] [address] Starla Arshad, DO Medication Request 10/11/2024 Scan [facility] HEALTH INFO SRVCS Scanned, Doc Med Group Image (SCAN); Procedure (SCAN) 10/10/2024 Scan [facility] HEALTH INFO SRVCS Scanned, Doc Med Group Lab (SCAN) 10/04/2024 Scan [facility] HEALTH INFO SRVCS Scanned, Doc Med Group Procedure (SCAN) 09/27/2024 Scan [facility] HEALTH INFO SRVCS Scanned, Doc Med Group Procedure (SCAN) 09/26/2024 Scan [facility] HEALTH INFO SRVCS Scanned, Doc Med Group Lab (SCAN) 09/24/[address] [address] Starla Arshad, DO Medication Request 09/21/2024 1:45 PM CDT Office Visit [facility] [address] Abhi Aguilar MD Coronary Artery Disease (6mo) 09/21/2024 Travel 09/18/[address] [address] Starla Arshad, DO Earache 09/17/2024 Scan MG HEALTH INFO SRVCS Scanned, Doc Med Group 09/12/2024 12:40 PM CDT Office Visit [address] [address] Clare Rubio APNP Ear Concern (The patient states she has had rt ear itching since Tuesday. The patient has been using debrox. ) 09/12/2024 Travel 09/12/[address] [address] Starla Arshad, DO Earache 09/11/2024 Telephone [facility] Family & Internal [address] [address] Starla Arshad, Medication Request 09/04/2024 Scan MG HEALTH INFO SRVCS Scanned, Doc Med Group 08/15/2024 Scan [facility] HEALTH INFO SRVCS Scanned, Doc Med Group Lab (SCAN) 08/14/2024 Scan [facility] HEALTH INFO SRVCS Scanned, Doc Med Group Image (SCAN); Lab (SCAN) 08/13/2024 2:00 PM CDT Allied Health/Nurse Visit [facility] [address] [address] Starla Arshad, Allied Health Visit (A1C) 08/13/2024 Results Follow-Up [address] [address] Starla Arshad, A1C (BACK OFFICE) 08/13/2024 Travel 08/09/2024 Scan [facility] HEALTH INFO SRVCS Scanned, Doc Med Group Pathology (SCAN); Procedure (SCAN); Lab (SCAN) 08/06/2024 Scan MG HEALTH INFO SRVCS Scanned, Doc Med Group 08/02/2024 Results Follow-Up [address] [address] Starla Arshad, VITAMIN D, 25 OH, LIPID PANEL, TSH W/REFLEX, Additional followed-up results: 2 08/01/2024 8:20 AM CDT Office Visit [facility] [address] [address] Starla Arshad, Bipolar Disorder; Spinal Stenosis ; Emphysema; Coronary Artery Disease; Hypertension 08/01/2024 Scan MG HEALTH INFO SRVCS Scanned, Doc Med Group Lab (SCAN); CT (SCAN) 08/01/2024 Telephone [facility] [address] [phone] Starla Arshad, DO Referral 08/01/2024 Telephone [facility] Internal [address] [address] Starla Arshad, DO Information 08/01/2024 Travel 07/31/2024 Telephone [facility] [address] [address] Starla Arshad, DO Lab Order 07/30/2024 Telephone [facility] [address] [address] Starla Arshad, DO Medication Request from Last 3 Months Immunizations Immunization Administration Dates Next Due COVID-19 Vaccine (Generic) 01/27/2023 Fluzone 6 Months+ Quad (0.5 mL Prefilled Syringe) 01/21/2022 Fluzone High Dose (IIV, triv alent, 0.5mL) 01/18/2024 Fluzone High Dose - >Age 65 (Prefilled Syringe) 01/27/2023 Influenza (Generic) 12/25/2020, 7,01/24/2016,2014,02/09/2015,02/15/2014,01/16/2014,0 01/15/2013,05/14/2009 Influenza Adult (Generic) 01/07/2020,01/25/2019, 01/12/2018 [employer] COVID-19 (ORIGINAL FORMULATION, PURPLE CAP) mRNA, LNP-S, [...] Never Comments:trying to quit. 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 Alcohol Use Standard Drinks/Week [...] Sex Assigned at Female 05/03/2024 9:57 AM ASSEMBLY MEMBER Legal Sex Female 4:45 PM CDT Gender Identity Female 05/03/2024 9:57 AM ASSEMBLY MEMBER Sexual Orientation Not on file Last Filed [...] Description 11/05/2024 10:20 AM CDT Office Visit [facility] Family & Internal Medicine [address] [phone] Starla Arshad DO [address] [place] [address] 03/22/2025 11:45 AM ASSEMBLY MEMBER Office Visit [facility]-[address] [address] Abhi Aguilar MD [address] [address] Health Maintenance Due Date Last Done [...] 12/31/2022, 01/12/2020, Additional history exists PHQ-2 (Physician [place]) Completed 05/03/2024 Meningococcal B Vaccine Aged Out [...] discharge from hospital 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 community resource consultant Procedure Name Priority Date/Time Associated Diagnosis Comments IMAGE GENERIC 10/11/2024 PROCEDURE GENERIC (SCAN ORDER) 10/11/2024 OUTSIDE LAB (SCAN ORDER) 10/10/2024 PROCEDURE GENERIC (SCAN ORDER) 10/04/2024 PROCEDURE GENERIC (SCAN ORDER) 10/04/2024 PROCEDURE GENERIC (SCAN ORDER) 10/04/2024 PROCEDURE GENERIC (SCAN ORDER) 09/27/2024 PROCEDURE GENERIC [...] HEPATITIS C ANTIBODY Routine 04/05/2023 8:24 AM ASSEMBLY MEMBER Primary hypertension Screening for lipid disorders Screening for endocrine, metabolic and immunity disorder Annual physical exam Need for hepatitis C screening test MG DIAG W WILMER BILAT DIGI Routine 09/09/2020 12:14 PM CDT Breast lump on left side at 10 o'clock position from Last 3 Months or Most Recently Relevant to Health Maintenance Results * IMAGE GENERIC (10/11/2024) Only the most recent of2 resultswithin the time period is included. Anatomical Region Laterality Modality Other 10/11/2024 Result [facility] Scanned SCANNING Final Resu lt * PROCEDURE GENERIC (SCAN ORDER) (10/11/2024) 10/11/2024 Result [facility] Scanned SCANNING Final Resu lt * OUTSIDE LAB (SCAN ORDER) (10/10/2024) Only the most recent of8 resultswithin the time period is included. 10/10/2024 Result [facility] Scanned SCANNING Final Resu lt * PROCEDURE GENERIC (SCAN ORDER) (10/04/2024) 10/04/2024 Result [facility] Scanned SCANNING Final Resu lt * PROCEDURE GENERIC (SCAN ORDER) (10/04/2024) 10/04/2024 Result [facility] Scanned SCANNING Final Resu lt * PROCEDURE GENERIC (SCAN ORDER) (10/04/2024) 10/04/2024 Result [facility] Scanned SCANNING Final Resu lt * PROCEDURE GENERIC (SCAN ORDER) (09/27/2024) 09/27/2024 Result [facility] Scanned SCANNING Final Resu lt * PROCEDURE GENERIC (SCAN ORDER) (09/27/2024) 09/27/2024 Result [facility] Scanned SCANNING Final Resu lt * A1C (BACK OFFICE) (08/13/2024) HGB A1C 5.6 % [facility] 08/13/[address] [facility] Starla Arshad DO LABORATORY Final Re sult [facility] [address] [place] [address], [place] * PATHOLOGY GENERIC (SCAN ORDER) (08/09/2024) Only the most recent of2 resultswithin the time period is included. 08/09/2024 Result [facility] Scanned SCANNING Final Resu lt * PROCEDURE GENERIC (SCAN ORDER) (08/09/2024) 08/09/2024 Result [facility] Scanned SCANNING Final Resu lt * PROCEDURE GENERIC (SCAN ORDER) (08/09/2024) 08/09/2024 Result [facility] Scanned SCANNING Final Resu lt * TSH W/REFLEX (08/01/2024 9:26 AM CDT) TSH 1.455 0.358 - 3.740 uIU/ML 08/01/2024 3:42 PM CDT [facility] 08/01/2024 9:26 AM CDT us Starla Arshad DO LABORATORY Final Re sult -BLAYNE HAN [address]ARTIN [address] [place] [address], * (ABNORMAL) COMPREHENSIVE METABOLIC PANEL (08/01/2024 9:26 AM CDT) Pathologist [facility] SODIUM S/P/B 141 136 - 145 MMOL/L 08/01/2024 3:42 PM CDT [facility] POTASSIUM S/P/B 3.7 3.5 - 5.1 MMOL/L 08/01/2024 3:42 PM CDT [facility] CHLORIDE S/P/B 102 98 - 107 MMOL/L 08/01/2024 3:42 PM CDT -[facility] CO2 33.1(H) 21 - 32 MMOL/L 08/01/2024 3:45 PM CDT -[facility] Comment:RESULTS CONFIRMED-TE ST REPEATED GLUCOSE 104(H) 70 - 99 MG/DL 08/01/2024 3:42 PM CDT [facility] BUN 11 7 - 18 MG/DL 08/01/2024 3:42 PM CDT [facility] CREATININE S/P/B 0.70 0.55 - 1.02 MG/DL 08/01/2024 3:42 PM CDT [facility] CALCIUM S/P/B 9.4 8.4 - 10.5 MG/DL 08/01/2024 3:42 PM CDT [facility] BILIRUBIN TOTAL S/P/B 0.6 0.2 - 1.0 MG/DL 08/01/2024 3:42 PM CDT [facility] ALKALINE PHOSPHATASE S/P/B 70 55 - 142 U/L 08/01/2024 3:42 PM CDT [facility] AST 17 15 - 37 U/L 08/01/2024 3:42 PM CDT [facility] ALT 16 14 - 59 U/L 08/01/2024 3:42 PM CDT [facility] TOTAL PROTEIN S/P/B 7.6 6.4 - 8.2 G/DL 08/01/2024 3:42 PM CDT [facility] ALBUMIN S/P/B 3.7 3.4 - 5.0 G/DL 08/01/2024 3:42 PM CDT [facility] ANION GAP 5.9 5 - 15 MMOL/L 08/01/2024 3:45 PM T [facility] Comment:REFERENCE RANGE NOT ESTABLISHED OSMOLALITY (CALC) 292 MOSM/KG 025 3:42 PM T [facility] Comment:REFERENCE RANGE NOT ESTABLISHED GFR ESTIMATE >90 >90 ML/MIN/1. 73 M2 08/01/2024 3:42 PM T [facility] GFR NOTES GFR REFERENCE S: 08/01/2024 3:42 PM T [facility] Comment: THE ESTIMATED GFR IS CALCULATED [...] Starla Arshad DO LABORATORY Final Re sult STEVEN GUILLE, MARTIN [address] [place] [address], * (ABNORMAL) LIPID PANEL (08/01/2024 9:26 AM CDT) CHOLESTEROL 112 <200 MG/DL 08/01/2024 3:42 PM CDT [facility] TRIGLYCERIDES 58 <150 MG/DL 08/01/2024 3:42 PM CDT [facility] HDL 40(L) >40 MG/DL 08/01/2024 3:42 PM CDT [facility] LDL-C 60 <100 MG/DL 08/01/2024 3:42 PM CDT [facility] VLDL CALCULATION 12 5 - 28 MG/DL 08/01/2024 3:42 PM CDT [facility] CHOL/HDL RATIO 2.8 0.0 - 4.0 08/01/2024 3:42 PM CDT [facility] LDL/HDL 1.5 0.41 - 2.13 08/01/2024 3:42 PM CDT [facility] NON HDL CHOLESTEROL 72 <140 MG/DL 08/01/2024 3:42 PM CDT [facility] 08/01/2024 9:26 AM CDT Starla Arshad DO LABORATORY Final Re gisel STEVEN GUILLE, [address] [place] [address], * CBC W/DIFF AUTOMATED (08/01/2024 9:26 AM CDT) WBC 8.07 4.00 - 10.80 x10'3/uL 08/01/2024 2:43 PM CDT [facility] RBC 4.19 4.10 - 5.40 x10'6/uL 08/01/2024 2:43 PM CDT MG-[facility] HGB 13.0 12.0 - 16.0 G/DL 08/01/2024 2:43 PM CDT MG-[facility] HCT 38.4 36.0 - 47.0 % 08/01/2024 2:43 PM CDT MG-[facility] MCV 91.6 78.0 - 100.0 FL 08/01/2024 2:43 PM CD[facility] MCH 31.0 27.0 - 31.0 PG 08/01/2024 2:43 PM CDT MG-[facility] MCHC 33.9 33.0 - 36.0 G/DL 08/01/2024 2:43 PM CDT MG-[facility] RDW 13.2 11.5 - 14.5 % 08/01/2024 2:43 PM CDT MG-[facility] PLT 281 150 - 350 x10'3/uL 08/01/2024 2:43 PM CDT [facility] MPV 9.4 7.4 - 10.4 FL 08/01/2024 2:43 PM CDT [facility] DIFFERENTIAL TYPE AUTOMATED DIFFERENTIAL 08/01/2024 2:43 PM CDT [facility] NEUTROPHILS % 68.6 % 08/01/2024 2:43 PM CDT [facility] LYMPHOCYTES % 18.2 % 08/01/2024 2:43 PM CDT [facility] MONOCYTES % 7.9 % 08/01/2024 2:43 PM CDT [facility] EOSINOPHILS % 4.8 % 08/01/2024 2:43 PM CDT MG-[facility] BASOPHILS % 0.4 % 08/01/2024 2:43 PM CDT [facility] IMMATURE GRANS % 0.1 % 08/01/2024 2:43 PM CDT -[facility] ABS. NEUTROPHILS 5.53 1.60 - 8.30 x10'3/uL 08/01/2024 2:43 PM CDT -[facility] ABS. LYMPHOCYTES 1.47 0.80 - 4.70 x10'3/uL 08/01/2024 2:43 PM CDT [facility] ABS. MONOCYTES 0.64 0.00 - 1.50 x10'3/uL 08/01/2024 2:43 PM CDT -[facility] ABS. EOSINOPHILS 0.39 0.00 - 0.40 x10'3/uL 08/01/2024 2:43 PM CDT -[facility] ABS. BASOPHILS 0.03 0.00 - 0.20 x10'3/uL 08/01/2024 2:43 PM CDT [facility] ABS. IMMATURE GRANULOCYTES 0.01 0.00 - 0.03 x10'3/uL 08/01/2024 2:43 PM CDT [facility] 08/01/2024 9:26 AM CDT Starla Arshad DO LABORATORY Final Re sult [facility] [address] [place] [address], * VITAMIN D, 25 OH (08/01/2024 9:26 AM CDT) VITAMIN D 25 HYDROXY TOTAL S/P/B 31.9 30 - 100 NG/ML 08/01/2024 3:42 PM CDT [facility] Comment: DEFICIENT <20 INSUFFICIENT 20-30 SUFFICIENT 30-100 08/01/2024 9:26 AM CDT Starla P Luchtefeld DO LABORATORY Final Re sult Performing Organization Address [facility] Co de Phone Number [facility] [address] [place] [address], * CT GENERIC (08/01/2024) Anatomical Region Laterality Modality Other 08/01/2024 us Doc Med Group Scanned SCANNING Final Resu lt * HEPATITIS C ANTIBODY (04/05/2023 8:24 AM ASSEMBLY MEMBER) HEPATITIS C AB NON-REACTI VE NON-REACT RAUL 04/05/2023 6:53 PM ASSEMBLY MEMBER [facility] Comment: ANTIBODIES TO HCV NOT DETECTED. DOES NOT EXCLUDE THE POSSIBILITY OF EXPOSURE TO HCV. 04/05/2023 8:24 AM ASSEMBLY MEMBER Starla Arshad DO LABORATORY Final Re sult Performing Organization Address [facility] Co de Phone Number [facility] [address] [place] [address], [id number] * MG DIAG W WILMER ISABELLE DIGI (09/09/2020 12:14 PM CDT) Anatomical Region [...] Examination: Bilateral digital diagnostic mammogram with CAD. [id number] Clinical history: Left breast lump and tenderness. [...] demonstrate any discrete solid or cystic mass. [place] appearing tissue architecture is demonstrated. Physical exam surveillance is advised with any further evaluation at this point guided on that basis. From a mammographic standpoint, routine follow-up in one year would seem adequate. These findings were discussed with the patient. Starla Arshad DO MAMMO Final Re sult from Last 3 Months or Most Recently Relevant to Health Maintenance Insurance [facility] MEDICAID Advance Directives * Full Code (Latest Code Status on File) Date Activated Date Inactivated Comments 09/22/2020 12:40 PM 09/23/2020 12:52 PM Care Teams In Home Aide Relationship Specialty Start Date End Date Starla Arshad DO [address] [place] [phone] PCP - General FAMILY PRACTICE 08/19/20
--- OUTSIDE RECORDS SUMMARY | 2024-10-18 01:23 | XMS_ITS | Encounter Summary ---
Author Organization [facility] Address [facility] [place] [address] Care Team Providers Care Contact Center Representative Name Role Phone Jimmy Doyle DO Primary Care Provider + Encounter Details Date Type Department Care Team (Late st Contact Info) Description 06/23/2022 Prep for Procedure [facility], [facility] [address] [place], [place] [id number] Flaquito Valera MD Three [facility]. [facility] [address] [place], [place] [id number] Social History Tobacco Use Types Packs/Day Years Used Date Smoking Tobacco: Every Day Cigarettes 1 55.2 Started: [birth year]19/1967 Smokeless Tobacco: Never Comments:trying to quit. 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 No / Unsure 06/24/2022 12:41 PM MUSIC STORE MANAGER documented as of this encounter Functional [...] things Not at all 06/24/2022 1:19 PM MUSIC STORE MANAGER Adia Mckenna MA Active Feeling down, depressed, or hopeless Nearly every day 06/24/2022 1:19 PM MUSIC STORE MANAGER Adia Mckenna MA Active Patient Health Questionnaire-2 Score 3 06/24/2022 1:19 PM MUSIC STORE MANAGER Adia Mckenna MA Active documented as of [...] Description 11/05/2024 10:20 AM CDT Office Visit [facility] Family & Internal Medicine [address] [phone] Jimmy Doyle DO [address] [place] [address] 03/22/2025 11:45 AM MUSIC STORE MANAGER Office Visit [facility] [address] [place] [phone] Abhi Aguilar MD [address] [facility] [address] [place] [phone] documented as of this encounter Goals Goal [...] Total Score: 8 05/13/19 22 10:36 AM MUSIC STORE MANAGER documented as of this encounter Care Teams Contact Center Representative Relationship Specialty Start Date End Date Jimmy Doyle DO [address] [place] [phone] PCP - General FAMILY PRACTICE 08/19/20 documented as of this encounter
--- NOTE | 2024-10-18 07:20 | WPDHPUPDATE1 ---
History and Physical Update Update Date/Time: 10/18/24 07:20 History and Physical has been reviewed, including an updated exam of the patient. There are NO changes in the patient's condition. Risks, benefits, and alternatives have been discussed and questions answered. Patient agrees to proceed with procedure.
[2024-10-18] MEDS: LACTATED RINGERS 1,000 ML 30 ML IV CONT ×2 (12:00→13:19)
--- NOTE | 2024-10-18 12:37 | P.PNAN_ITS ---
Anes - Initial Pre Proc Eval Procedure: Operation Date: 10/18/24 13:30 Proposed Procedures p Cystoscopy, Right Retrograde Pyelogram, Right Ureteroscopy, Jelmyto Instillation - Tacos Bowers MD Date/Time: 10/18/24 12:37 Surgeon: Tacos Bowers MD Pre Op Diagnosis: right urothelial CA Patient Data Age: 68 Gender: F Height: 1.66 m Weight: 63.05 kg Allergies Allergy/AdvReac Type Severity Reaction Status Date / Time Penicillins Allergy Unknown Rash Verified 10/11/24 09:28 Sulfa (Sulfonamide Allergy Unknown Hives Verified 10/11/24 09:28 Antibiotics) sulfanilamide Allergy Unknown Hives Verified 10/11/24 09:28 ciprofloxacin AdvReac Intermediate Shakiness Verified 10/11/24 09:28 amitriptyline (From Elavil) AdvReac Unknown Confusion Verified 10/17/24 07:28 codeine AdvReac Unknown N/V Verified 10/11/24 09:28 tetracycline AdvReac Unknown Nausea Verified 10/11/24 09:28 doxycycline AdvReac Nausea and Verified 10/11/24 09:28 Vomiting Home Medications ?Medication ?Instructions ?Recorded ?Confirmed ?Type aspirin 81 mg tablet,delayed 81 mg PO DAILY 04/05/19 10/11/24 History release (Aspir-) hydrochlorothiazide 25 mg tablet 25 mg PO DAILY #90 tabs 08/27/20 10/11/24 Rx atorvastatin 40 mg tablet (Lipitor) 40 mg PO HS 01/10/21 10/11/24 History bupropion HCl 150 mg 24 hr tablet, 150 mg PO HS 01/10/21 09/20/24 History extended release (Wellbutrin XL) isosorbide mononitrate 30 mg 90 mg PO QACLUNCH 01/10/21 10/11/24 History tablet,extended release 24 hr nitroglycerin 0.4 mg sublingual 0.4 mg sublingual PRN CHEST PAIN 01/10/21 09/20/24 History tablet potassium chloride 10 mEq 10 meq PO DAILY 01/10/21 10/04/24 History tablet,extended release (K-Tab) venlafaxine 150 mg See Rx Instructions .Route .COMPLEX 03/02/22 10/11/24 History capsule,extended release 24 hr (Effexor XR) ranolazine 500 mg tablet,extended 500 mg PO Q12HR 30 days #60 tabs 03/04/22 10/11/24 Rx release,12 hr (Ranexa) cholecalciferol (vitamin D3) 125 125 mcg PO DAILY 11/12/22 10/11/24 History mcg (5,000 unit) tablet (Vitamin D3) hydrocodone 10 mg-acetaminophen 1 tablet PO PRN PRN pain 06/18/24 10/11/24 History 325 mg tablet oxybutynin chloride 10 mg 10 mg PO HS 06/18/24 10/04/24 History tablet,extended release 24 hr alprazolam 0.5 mg tablet 0.5 mg PO TID PRN anxiety 07/30/24 10/11/24 History carvedilol 12.5 mg tablet 12.5 mg PO BID 07/30/24 10/11/24 History cephalexin 500 mg capsule 500 mg PO Q8H #15 caps 08/09/24 09/20/24 Rx hydrocodone 5 mg-acetaminophen 325 1 - 2 tablet PO Q6H PRN pain #20 08/09/24 09/27/24 Rx mg tablet tabs mirabegron 50 mg tablet,extended 50 mg PO DAILY #30 tabs 08/09/24 09/20/24 Rx release 24 hr (Myrbetriq) ondansetron 4 mg disintegrating 4 mg PO Q6H PRN nausea and 08/14/24 09/20/24 Rx tablet vomiting #10 tabs icosapent ethyl 1 gram capsule 2 g PO BID 09/12/24 10/11/24 History quetiapine 300 mg tablet (Seroquel) 300 mg PO HS 09/12/24 10/11/24 History tolterodine 2 mg tablet 2 mg PO Q12H 09/12/24 10/11/24 History Patient hx anesthesia problems: none Family hx anesthesia problems: none Results Review: All pre-operative results and documents have been reviewed as part of the pre- operative evaluation. [facility] Past Medical History Medical History Chronic, continuous use of opioids Bipolar disorder, unspecified CAD (coronary artery disease) Hypertension Emphysema lung Screening for colon cancer Screening for breast cancer Postmenopausal Hx of pancreatitis Depression Kidney stones Kidney disease Urinary frequency High cholesterol Pneumonia Vision abnormalities Weight gain Cholecystectomy planned Anxiety Surgical History Surgical History H/O excision of mass 11/22/22 Excision of 5 cm perianal cyst History of cholecystectomy Hx of tonsillectomy History of partial hysterectomy H/O colonoscopy History of esophagogastroduodenoscopy (EGD) History of laryngoscopy Family History Family History Sibling Patient's brother is in good health Dementia Mother Family history of coronary artery disease Acute myocardial infarction Father Patient's father is Acute myocardial infarction Cerebrovascular accident Unknown Heart disease Cerebrovascular accident Other Family history of mental disorder Social History Social History Smoking packs per day: 1 Smoking cigarettes per day: 20.0 Years smoked: 52 Smoking pack-years: 52.00 Smoking status: Current every day smoker Tobacco type: cigarettes Second hand tobacco smoke exposure: No Alcohol intake: never Substance use: current Substance use type: marijuana Other substance usage details: Daily Last use: 09/12/24 Lack of Transportation: No Lack of Food: Never True Current Housing: I Have Housing Concerned About Future Housing: No Difficulty Paying Gas/Electric Bills: No Difficulty Paying for Meds: No Currently Unemployed: No Education: Decline to Answer Difficulty w/ Childcare or Family Care: No Living arrangements: alone Spiritual care concerns: No Anes - Eval Final PreProcedure Day of Procedure 10/18/24 12:37 Patient weight: normal Heart: regular rate and rhythm Lungs: clear to auscultation Airway: Mallampati scale class II and other (edentulous ) Neurological: alert and oriented Last oral intake: >/= 8 hours ASA classification: III Emergent: no Anesthetic plan: proceed Anesthesia type and monitoring: general LMA and standard monitoring Results Review: All pre-operative results and documents have been reviewed as part of the pre- operative evaluation. Informed Consent: The patient's anesthetic plan and its attendant risks and benefits were discussed with the patient/family/POA. Questions were solicited and answers provided to the satisfaction of the patient/family/POA.
[2024-10-18] MEDS: ceFAZolin 2 GM/D5W 50 ML 2 GM/50 ML BAG IVPB (12:53)
[2024-10-18] MEDS: MITOMYCIN 36 MG URETHRAL (12:57)
--- NOTE | 2024-10-18 13:16 | W.PM.PROC2 ---
Procedure Note - Detailed Date of Procedure 10/18/24 Pre-op Diagnosis Right upper tract urothelial CA Post-op Diagnosis Same Procedure Performed Jelmyto instillation Surgeon Tacos Bowers MD Anesthesia General Description of Procedure [facility] [address] [place] [id number] Operative Note Signed Patient: Jeniffer Weller MR#: [id number] : 1955 Acct:[id number] Age: 68 ADM Date: 10/11/24 Loc: ANHSURGERY Patient is brought to the operative suite where she was prepped and draped in routine sterile fashion while in dorsal lithotomy position after the uneventful induction of a general LMA anesthetic. A 19F rigid cystoscope was placed in the bladder. The bladder was carefully inspected. Mucosa is normal without hyperemia. There was no intravesical neoplasm. A 0.035 in glidewire was advanced in the right renal pelvis and a ureteral catheter was advanced over the guidewire. The retrograde pyelogram was obtained to ensure appropriate positioning of the ureteral catheter in the collecting system. Prior retrograde pyelography had determined a renal pelvic volume of 9cc. We opted to use that prior volume determination for today's instillation. After appropriate reconstitution of the Jelmyto in ice retrograde injection was undertaken through the same ureteral catheter positioned at the UPJ. A total of 9mL (36 mg) of Jelmyto was instilled in the renal pelvis without incident. The volume of Jelmyto wasted was 11 mL (44 mg). the ureteral catheter was allowed to stand for 60 seconds and then removed with ease. Because the patient has no history of ureteral stricture I opted not to place a ureteral stent. Patient tolerated the procedure well was taken to the recovery room in good condition. Drains No Packing No Pathology None sent Complications No immediate complications Condition Stable Disposition PACU
== END 2024-10-18 15:00 | disposition home or self-care (01) ==
PROVIDERS: PCP Student in an Organized Health Care Education/Training Program; Visit Provider Urology
PROC: (CPT 52352; principal; 2024-10-18 13:30)
DX: C65.1 Malignant neoplasm of right renal pelvis (principal); C66.1 Malignant neoplasm of right ureter; F17.210 Nicotine dependence, cigarettes, uncomplicated; F12.90 Cannabis use, unspecified, uncomplicated
CPT/HCPCS: C9789; 74420; A9270; C1769; J0690; J1100; J2003; J2250; J2405; J2704; J3010; J7120; J9281

== ENCOUNTER 2024-10-25 00:23 | Day surgery (SDC) | payer MEDICARE, MEDICAID, SELFPAY ==
[2024-09-20 14:46] VITALS: BMI 22.7
--- NOTE | 2024-09-20 14:49 | PC.NURSE ---
Report to the Outpatient Waiting Room, entrance under the green pavilion located off [facility], at time __9 AM on date __10/25/24 . Planned Procedure Time: ___11 AM .? Time changes happen often and if your time is changed the preop area will call you the afternoon before. - You and your visitor will be asked to self-screen and do not enter if you have any COVID symptoms. Please call surgeon if you need to reschedule. - A mask is optional within the hospital at this time. Patients may have clear liquids (water, carbonated beverages, clear teas, apple juice) until 3 hours prior to surgery ( 8AM) with a maximum of 20 ounces. - No food from midnight until time of surgery and no smoking, or chewing tobacco (or any form of nicotine). No chewing gum, candy or mints. Take only the following medications with a SIP of water on the morning of surgery: __ALPRAZOLAM,CARVEDILOL,HYDROCODONE IF NEEDED FOR PAIN, VENLAFAXINE,RANOLAZINE DO NOT STOP ANY OF YOUR OTHER PRESCRIPTION MEDICATIONS PRIOR TO SURGERY EXCEPT THE FOLLOWING Hold all vitamins and supplements for 3 days per anesthesiologist.LAST DOSE 10/21/24 Medications to discontinue per physician ASPIRIN ON HOLD SINCE 09/19/24 Please no make-up, nail thai, hairspray, perfume, deodorant, or body powder the day of surgery.? No jewelry (including any body piercings) or valuables the day of surgery, leave them at home.? Please take a shower or bath the night before, or the morning of, surgery with an antibacterial soap.? Wear comfortable, loose fitting clothing.? Children are encouraged to wear pajamas. - Jewelry must be removed prior to entering the operating room.? Rings and piercings that are not removed may be cut off. - The hospital will not accept responsibility for valuables.? - Please leave all valuables, including medications, at home the day of surgery. If you are going home after surgery, a licensed driver education road instructor must drive you home.? - NO public transportation without another adult if you receive anesthesia. - We recommend that an adult stay with you for 24 hours following discharge. - We also recommend that you do not drive, make important decision, drink alcoholic beverages, or take any drugs that were not prescribed by your health care provider for at least 24 hours after your discharge time. For Pediatric surgeries, we recommend two adults accompany the child home. Follow any additional instructions given to you from your surgeon. Telephone instructions given to _PATIENT and asked if any additional questions and then verbalized understanding. Patient advised to call surgeon office or pre surgery nurse liaison [phone] if any additional questions.
--- NOTE | 2024-09-20 14:51 | PC.NURSE ---
NO CHANGE IN MEDS OR HEALTH HX. WILL CALL IF ANY CHANGES
--- NOTE | ~2024-10-25 | XR_ITS ---
EXAMINATION: XR retrograde pyelogram RT DATE: 10/25/2024 11:03 INDICATION: Right retrograde pyelogram. TECHNIQUE: 43 fluoroscopic images of the abdomen and pelvis were obtained during procedure performed by Dr. Bowers. Radiologist was not present for the imaging or procedure. The amount of fluoroscopy ti me used during this procedure was 0.4 minutes. Total DAP was 0.318 mGym^2. COMPARISON: None. FINDINGS: Retrograde cannulation and contrast injection into the right renal pelvis and collecting system which appears normal. There is a lucent bubble along the inferior margin of the contrast which progressive ly into the proximal ureter while changing in size and morphology consistent with a gas bubble. Lisa cystectomy clips in right upper quadrant. IMPRESSION: 1. Fluoroscopy utilized during right retrograde pyelogram. See procedure note for further detail. Reviewed, dictated and finalized at location A. IMPRESSION: 1. Fluoroscopy utilized during right retrograde pyelogram. See procedure note f or further detail.
--- OUTSIDE RECORDS SUMMARY | 2024-10-25 00:25 | XMS_ITS | Encounter Summary ---
Author Organization [facility] Address [facility] [place] [address] Care Team Providers Care Election Supervisor Name Role Phone New Referring, Provider Primary Care Provider Un available Jimmy Doyle DO Primary Care Provider + Encounter Details Date Type Department Care Team (Latest Contact Info) Description 12/12/2017 Abstract [facility] , Farhana Aguilera MD Social History Tobacco Use Types Packs/Day Years Used Date Smoking Tobacco: Never Assessed Comments Unknown Sex and Gender Information Value Date Recorded Sex Assigned at Female 05/03/2024 9:[address] Legal Sex Female 4:45 PM CDT Gender Identity Female 05/03/2024 9:[address] Sexual Orientation Not on file documented as of this encounter Plan of Treatment Upcoming Encounters Date Type Department Care Team (Late st Contact Info) Description 11/05/2024 10:20 AM CDT Office Visit [facility] Family & Internal Medicine - [address] [phone] Jimmy Doyle DO [address] [place] [phone] 03/22/2025 11:[address] Office Visit [facility] [phone] Abhi Aguilar MD [address] [place] [phone] documented as of this encounter Visit Diagnoses Not on filedocumented in this encounter Additional Health Concerns Infection Onset Date Last Indicated Resolved Time COVID-19 Rule Out 01/13/2022 01/13/2022 01/13/2022 9:32 AM CDT COVID-19 Rule Out 01/13/2022 01/13/2022 01/13/2022 9:59 AM CDT COVID-19 Rule Out 01/27/2023 01/27/2023 01/27/2023 11:28 AM CDT documented as of this encounter Care Teams Election Supervisor Relationship Specialty Start Date End Date New Referring, Provider PCP - General UNKNOWN PHYSICIAN SPECIALTY 01/25/18 08/18/20 Jimmy Doyle DO [address] [place] [phone] PCP - General FAMILY PRACTICE 08/19/20 documented as of this encounter
--- OUTSIDE RECORDS SUMMARY | 2024-10-25 00:26 | XMS_ITS | Encounter Summary ---
Author Organization [facility] Address [facility] [place] [address] Care Team Providers Care Toy Trains And Accessories Salesperson Name Role Phone Jimmy Doyle Primary Care Provider + Encounter Details Date Type Department Care Team (Late st Contact Info) Description 01/11/2022 Abstract [facility] [address] Doni Moore MA Social History Tobacco Use Types Packs/Day Years Used Date Smoking Tobacco: Every Day Cigarettes 1 55.2 Started: [birth year]/19/1967 Smokeless Tobacco: Never Comments:trying to quit. 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 Alcohol Use Standard Drinks/Week Comments Never [...] Sex Assigned at Female 05/03/2024 9:57 AM MEDICAL LABORATORY TECHNOLOGIST Legal Sex Female 4:45 PM CDT Gender Identity Female 05/03/2024 9:57 AM MEDICAL LABORATORY TECHNOLOGIST Sexual Orientation Not on file COVID-19 Exposure [...] Description 11/05/2024 10:20 AM CDT Office Visit [facility] Family & Internal Medicine - [address] [phone] Jimmy Doyle DO [address] [place] [phone] 03/22/2025 11:45 AM MEDICAL LABORATORY TECHNOLOGIST Office Visit [facility] [phone] Abhi Aguilar MD [address] [place] [phone] documented as of this encounter Goals [...] Total Score: 8 05/13/19 22 10:36 AM MEDICAL LABORATORY TECHNOLOGIST documented as of this encounter Care Teams Toy Tra[employer] And Accessories Salesperson Relationship Specialty Start Date End Date Jimmy Doyle DO [address] [place] [phone] PCP - General FAMILY PRACTICE 08/19/20 documented as of this encounter
--- OUTSIDE RECORDS SUMMARY | 2024-10-25 00:26 | XMS_ITS | Clinical Summary ---
Author Organization [facility] Address [address] [place] [address] Care Team Providers Care Assistant Professor Of Drama Name Role Phone Unavailable Primary Care Provider Unavailabl e Source Comments [facility],non-owned Affiliates and Associated Physician Practices is amultiple site organization consisting of ambulatory clinics and hospital sitesin [place], [place], [place] and [place]. This disclosure is being madepursuant to the Care Everywhere program and may not contain all information available regarding this patient. Last updated 18.[facility] Social History Tobacco Use Types Packs/Day Years Used Date Smoking Tobacco: Never Assessed Comments Unknown Sex and Gender Information Value Date Recorded Sex Assigned at Not on file Legal Sex Female 6:27 PM SALES ENABLEMENT ANALYST Gender Identity Not on file Sexual [...] patient's age to complete this topic Insurance [facility] MANAGED MEDICARE [facility] MEDICA[facility] [place] SELF PAY NO INSURANCE Member Subscriber Plan / Payer (Ef fective for All Dates) Name:Jeniffer Vargas Member ID:Not on file Relation to Subscriber:Not on file Name:JENIFFER VARGAS Subscriber ID:Not on file (Home) Address: [address] [place] [phone] Payer ID:Not on file Group ID:Not on file Type:Self Pay Address: [place], [place] [facility] MANAGED MEDICARE ADV
--- OUTSIDE RECORDS SUMMARY | 2024-10-25 00:26 | XMS_ITS | Encounter Summary ---
Author Organization [facility] Address [facility] [place] [address] Care Team Providers Care Business Transformation Consultant Name Role Phone Jimmy Doyle DO Primary Care Provider + Encounter Details Date Type Department Care Team (Late st Contact Info) Description 06/23/2022 Prep for Procedure [facility] [facility], [facility] [address] [place], [place] [phone] Flaquito Valera MD Three [facility]. [facility] [address] [place], [place] [phone] Social History Tobacco Use Types Packs/Day Years Used Date Smoking Tobacco: Every Day Cigarettes 1 55.2 Started: 08/19/1969 Smokeless Tobacco: Never Comments:trying to quit. 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 No / Unsure 06/24/2022 12:41 PM LABEL FUSER TENDER documented as of this encounter Functional Status [...] things Not at all 06/24/2022 1:19 PM LABEL FUSER TENDER Adia Mckenna MA Active Feeling down, depressed, or hopeless Nearly every day 06/24/2022 1:19 PM LABEL FUSER TENDER Adia Mckenna MA Active Patient Health Questionnaire-2 Score 3 06/24/2022 1:19 PM LABEL FUSER TENDER Adia Mckenna MA Active documented as of [...] Description 11/05/2024 10:20 AM CDT Office Visit [facility] Family & Internal Medicine [address] [phone] Jimmy Doyle DO [address] [place] [address] 03/22/2025 11:45 AM LABEL FUSER TENDER Office Visit [facility] [address] [place] [phone] Abhi Aguilar MD [address] [facility] [address] [place] [phone] documented as of this encounter Goals Goal [...] Total Score: 8 05/13/19 22 10:36 AM LABEL FUSER TENDER documented as of this encounter Care Teams Business Transformation Consultant Relationship Specialty Start Date End Date Jimmy Doyle DO [address] [place] [phone] PCP - General FAMILY PRACTICE 08/19/20 documented as of this encounter
--- OUTSIDE RECORDS SUMMARY | 2024-10-25 00:26 | XMS_ITS | Clinical Summary ---
Author Organization [facility] Address Formerly [facility] [place] [address] Care Team Providers Care Economic Forecaster Name Role Phone Starla Arshad Vladimir QURESHI [...] DAILY 180 tablet 1 06/19/19 25 Active hydroCHLOROthiazi de (HYDRODIURIL) 25 MG tabletIndications :Primary hypertension Take 1 tablet (25 mg total) by mouth daily. 90 tablet 3 06/23/19 25 Active carvedilol (COREG) 12.5 MG tabletIndications [...] DAILY 270 tablet 1 07/24/19 25 Active potassium chloride CR (KLOR-CON M) 10 MEQ tabletIndications :Hypopotassemia Take 1 tablet (10 mEq total) by mouth daily. 90 tablet 08/17/19 25 Active venlafaxine XR (EFFEXOR-XR) 150 MG 24 hr capsuleIndication s:Bipolar affective disorder, currently depressed, mild ([facility]) TAKE 1 CAPSULE(150 MG) BY MOUTH DAILY 90 capsule 09/04/19 25 Active tolterodine (DETROL) 2 MG tablet Take 1 tablet (2 mg total) by mouth 2 (two) times daily as needed. 08/15/19 25 Active ALPRAZolam (XANAX) 0.5 MG tabletIndications :Anxiety Take 1 tablet (0.5 mg total) by mouth 3 (three) times daily as needed for Anxiety. 90 tablet 09/25/19 25 Active HYDROcodone-aceta minophen (NORCO) 10-325 MG tabletIndications :Chronic Pain Take 1 tablet by mouth every 8 (eight) hours as needed for Pain. Indications: Chronic Pain 90 tablet 10/17/19 25 Active oxybutynin XL (DITROPAN-XL) 10 MG 24 hr tabletIndications :Incomplete emptying of bladder TAKE 1 TABLET(10 MG) BY MOUTH EVERY NIGHT AT BEDTIME 90 tablet 10/24/19 25 Active oxybutynin XL (DITROPAN-XL) 10 MG 24 hr tabletIndications :Incomplete emptying of bladder TAKE 1 TABLET(10 MG) BY MOUTH EVERY NIGHT AT BEDTIME 90 tablet 07/28/19 25 2024 Discontinued HYDROcodone-aceta minophen (NORCO) 10-325 MG tabletIndications :Chronic Pain Take 1 tablet by mouth every 8 (eight) hours as needed for Pain. Indications: Chronic Pain 90 tablet 09/12/19 25 2024 Discontinued(R eorder) Active Problems Problem Noted Date Diagnosed Date Ureteral cancer, right ([facility]) 025 Bipolar affective disorder, currently depressed, mild ([facility]) 05/03/2023 Sedative, hypnotic or anxiol ytic dependence, uncomplicated ([facility]) 03/25/2022 PAD (peripheral artery disease) 02/19/2022 Right iliac artery stenosis 02/19/2022 Allergies 07/31/2021 Right lower quadrant abdominal pain 07/31/2021 Tobacco abuse 07/31/2021 Radiculopathy, lumbar region 12/29/2020 Other intervertebral disc degeneration, lumbar r egion 12/29/2020 Spondylolisthesis of lumbar region 12/29/2020 Coronary artery disease of n ative artery of [place] heart with stable angina pectoris 10/01/2020 Degenerative [...] 08/18/2020 Nausea 08/18/2020 Nicotine dependence 08/18/2020 On long-term drug therapy 08/18/2020 Polyarthritis 08/18/2020 Postmenopausal status 08/18/2020 Primary osteoarthritis of left knee 08/18/2020 Triggering of digit 08/18/2020 Vitamin D deficiency 08/18/2020 Cerebrovascular accident ([facility]) 04/30 Body mass index (BMI) of 28.0 to 28.9 in adult 0 10/12/2018 Low back pain 10/12/2018 Muscle spasm 02/03/2018 Lumbar foraminal stenosis 01/17/2018 Bulging lumbar disc 01/16/2018 Hypertension 01/16/2018 GERD (gastroesophageal reflux disease) 8 Lumbar stenosis 01/16/2018 Osteoarthrosis 01/16/2018 Depressive disorder 01/16/2018 Chronic obstructive pulmonary disease ([facility]) 01/16/2018 Hyperlipidemia 01/16/2018 Resolved Problems Problem Noted Date Diagnosed Date Resolved Date Screening for breast cancer 08/18/2020 08/25/2020 Infiltrate of lung present on chest x-ray 08/18/2020 05/03/2024 Encounter for preventive health examination 02/13/2014 08/25/2020 Encounters Date Type Department Care Team Description 10/16/[address] [facility] Family [facility] Internal Medicine [address] [address] Starla Arshad, DO Medication Request 10/11/2024 Scan HEALTH INFO SRVCS Scanned, Doc Med Group Image (SCAN); Procedure (SCAN) 10/10/2024 Scan MG HEALTH INFO SRVCS Scanned, Doc Med [facility] Lab (SCAN) 10/04/2024 Scan MG HEALTH INFO SRVCS Scanned, Doc Med Group Procedure (SCAN) 09/27/2024 Scan [facility] HEALTH INFO SRVCS Scanned, Doc [facility] Procedure (SCAN) 09/26/2024 Scan [facility]ALTH INFO SRVCS Scanned, Doc [facility] Lab (SCAN) 09/24/[address] [address] Starla Arshad P, DO Medication Request 09/21/2024 1:45 PM CDT Office Visit [facility] [address] [address] Abhi Aguilar MD Coronary Artery Disease (6mo) 09/21/2024 Travel 09/18/[address] [address] Starla Arshad P, DO Earache 09/17/2024 Scan [facility] HEALTH INFO SRVCS Scanned, Doc Med Group 09/12/2024 12:40 PM CDT Office Visit [address] [phone] Clare Rubio APNP Ear Concern (The patient states she has had rt ear itching since Tuesday. The patient has been using debrox. ) 09/12/2024 Travel 09/12/[address] [address] Starla Arshad P, DO Earache 09/11/[address] [address] Starla Arshad P, DO Medication Request 09/04/2024 Scan [facility] INFO SRVCS Scanned, Doc Med [facility] 08/15/2024 Scan [facility] INFO SRVCS Scanned, Doc [facility] Lab (SCAN) 08/14/2024 Scan [facility] HEALTH INFO SRVCS Scanned, Doc [facility] Image (SCAN); Lab (SCAN) 08/13/2024 2:00 PM CDT Allied Health/Nurse Visit [facility] [address] [address] Starla Arshad, DO Allied Health Visit (A1C) 08/13/2024 Results Follow-Up [facility] [address] [address] Starla Arshad, DO A1C (BACK OFFICE) 08/13/2024 Travel 08/09/2024 Scan [facility] HEALTH INFO SRVCS Scanned, Doc Med [facility] Pathology (SCAN); Procedure (SCAN); Lab (SCAN) 08/06/2024 Scan [facility] INFO [facility] Scanned, Doc Med [facility] 08/02/2024 Results Follow-Up [address] [address] Starla Arshad, DO VITAMIN D, 25 OH, LIPID PANEL, TSH W/REFLEX, Additional followed-up results: 2 08/01/2024 8:20 AM CDT Office Visit [address] [address] Starla Arshad, DO Bipolar Disorder; Spinal Stenosis ; Emphysema; Coronary Artery Disease; Hypertension 08/01/2024 Scan [facility] INFO [facility] Scanned, Doc [facility] Lab (SCAN); CT (SCAN) 08/01/[address] [address] Starla Arshad, DO Referral 08/01/[address] [address] Starla Arshad, DO Information 08/01/2024 Travel 07/31/2024 Telephone [facility] [address] [address] Starla Arshad DO Lab Order 07/30/2024 Telephone [facility] [address] [address] Starla Arshad DO Medication Request from Last 3 Months [...] Never Comments:trying to quit. 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 curriculum counselor Alcohol Use Standard Drinks/Week Comments Never [...] Sex Assigned at Female 05/03/2024 9:57 AM READERS' ADVISORY SERVICE LIBRARIAN Legal Sex Female 4:45 PM CDT Gender Identity Female 05/03/2024 9:57 AM READERS' ADVISORY SERVICE LIBRARIAN Sexual Orientation Not on file Last Filed [...] 10:20 AM CDT Office Visit [facility] Family & Internal Medicine - [address] [phone] Starla Arshad DO [address] [place] [address] 03/22/2025 11:45 AM READERS' ADVISORY SERVICE LIBRARIAN Office Visit [facility] [phone] Abhi Aguilar MD [address] [place] [phone] Health Maintenance Due Date Last Done [...] 12/31/2022, 01/12/2020, Additional history exists PHQ-2 (Physician [place]) Completed 05/03/2024 Meningococcal B Vaccine Aged Out [...] upon discharge from hospital General Daysi Nayak director of sales Procedure Name Priority Date/Time Associated Diagnosis Comments [...] HEPATITIS C ANTIBODY Routine 04/05/2023 8:24 AM READERS' ADVISORY SERVICE LIBRARIAN Primary hypertension Screening for lipid disorders Screening [...] Anatomical Region Laterality Modality Other 10/11/2024 Result [facility] Scanned SCANNING Final Resu lt * PROCEDURE GENERIC (SCAN ORDER) (10/11/2024) 10/11/2024 Result [facility] Scanned SCANNING Final Resu lt * OUTSIDE LAB (SCAN ORDER) (10/10/2024) Only the most recent of8 resultswithin the time period is included. 10/10/2024 Result [facility] Scanned SCANNING Final Resu lt * PROCEDURE GENERIC (SCAN ORDER) (10/04/2024) 10/04/2024 Result [facility] Scanned SCANNING Final Resu lt * PROCEDURE GENERIC (SCAN ORDER) (10/04/2024) 10/04/2024 Result [facility] Scanned SCANNING Final Resu lt * PROCEDURE GENERIC (SCAN ORDER) (10/04/2024) 10/04/2024 Result [facility] Scanned SCANNING Final Resu lt * PROCEDURE GENERIC (SCAN ORDER) (09/27/2024) 09/27/2024 Result [facility] Scanned SCANNING Final Resu lt * PROCEDURE GENERIC (SCAN ORDER) (09/27/2024) 09/27/2024 [facility] Scanned SCANNING Final Resu lt * A1C (BACK OFFICE) (08/13/2024) HGB A1C 5.6 % [facility] 08/13/2024 Starla Arshad DO LABORATORY Final Re sult Performing Organization Address [facility]/ZIP Co de Phone Number [facility] [address] [place] [address], [place] * PATHOLOGY GENERIC (SCAN ORDER) (08/09/2024) Only the most recent of2 resultswithin the time period is included. 08/09/2024 Result [facility] Scanned SCANNING Final Resu lt * PROCEDURE GENERIC (SCAN ORDER) (08/09/2024) 08/09/2024 Result [facility] Scanned SCANNING Final Resu lt * PROCEDURE GENERIC (SCAN ORDER) (08/09/2024) 08/09/2024 Result [facility] Scanned SCANNING Final Resu lt * TSH W/REFLEX (08/01/2024 9:26 AM CDT) TSH 1.455 0.358 - 3.740 uIU/ML 08/01/2024 3:42 PM CDT [facility] 08/01/2024 9:26 AM CDT Starla Arshad DO LABORATORY Final Re sult [facility] [address] [place] [address], [place] [phone] * (ABNORMAL) COMPREHENSIVE METABOLIC PANEL (08/01/2024 9:26 AM CDT) [facility] SODIUM S/P/B 141 136 - 145 MMOL/L 08/01/2024 3:42 PM CDT -[facility] POTASSIUM S/P/B 3.7 3.5 - 5.1 MMOL/L 08/01/2024 3:42 PM CDT -[facility] CHLORIDE S/P/B 102 98 - 107 MMOL/L 08/01/2024 3:42 PM CDT -[facility] CO2 33.1(H) 21 - 32 MMOL/L 08/01/2024 3:45 PM CDT -[facility] Comment:RESULTS CONFIRMED-TE ST REPEATED GLUCOSE 104(H) 70 - 99 MG/DL 08/01/2024 3:42 PM CDT -[facility] BUN 11 7 - 18 MG/DL 08/01/2024 3:42 PM CDT -[facility] CREATININE S/P/B 0.70 0.55 - 1.02 MG/DL 08/01/2024 3:42 PM CDT -[facility] CALCIUM S/P/B 9.4 8.4 - 10.5 MG/DL 08/01/2024 3:42 PM CDT -[facility] BILIRUBIN TOTAL S/P/B 0.6 0.2 - 1.0 MG/DL 08/01/2024 3:42 PM CDT -[facility] ALKALINE PHOSPHATASE S/P/B 70 55 - 142 U/L 08/01/2024 3:42 PM CDT [facility] AST 17 15 - 37 U/L 08/01/2024 3:42 PM CDT -[facility] ALT 16 14 - 59 U/L 08/01/2024 3:42 PM CDT [facility] TOTAL PROTEIN S/P/B 7.6 6.4 - 8.2 G/DL 08/01/2024 3:42 PM CDT [facility] ALBUMIN S/P/B 3.7 3.4 - 5.0 G/DL 08/01/2024 3:42 PM CDT [facility] ANION GAP 5.9 5 - 15 MMOL/L 08/01/2024 3:45 PM CDT [facility] Comment:REFERENCE RANGE NOT ESTABLISHED OSMOLALITY (CALC) 292 MOSM/KG 025 3:42 PM CDT [facility] Comment:REFERENCE RANGE NOT ESTABLISHED GFR ESTIMATE >90 >90 ML/MIN/1. 73 M2 08/01/2024 3:42 PM CDT [facility] GFR NOTES GFR REFERENCE S: 08/01/2024 3:42 PM T [facility] Comment: THE ESTIMATED GFR IS CALCULATED USING [...] Starla Arshad DO LABORATORY Final Re sult [facility] [address] [facility] [address], [place] [phone] * (ABNORMAL) LIPID PANEL (08/01/2024 9:26 AM CDT) CHOLESTEROL 112 <200 MG/DL 08/01/2024 3:42 PM CDT [facility] TRIGLYCERIDES 58 <150 MG/DL 08/01/2024 3:42 PM CDT [facility] HDL 40(L) >40 MG/DL 08/01/2024 3:42 PM CDT [facility] LDL-C 60 <100 MG/DL 08/01/2024 3:42 PM CDT [facility] VLDL CALCULATION 12 5 - 28 MG/DL 08/01/2024 3:42 PM CDT [facility] CHOL/HDL RATIO 2.8 0.0 - 4.0 08/01/2024 3:42 PM CDT [facility] LDL/HDL 1.5 0.41 - 2.13 08/01/2024 3:42 PM CDT [facility] NON HDL CHOLESTEROL 72 <140 MG/DL 08/01/2024 3:42 PM CDT [facility] 08/01/2024 9:26 AM CDT us Starla Arshad DO LABORATORY Final Re sult [facility] [address] [place] [address], * CBC W/DIFF AUTOMATED (08/01/2024 9:26 AM CDT) WBC 8.07 4.00 - 10.80 x10'3/uL 08/01/2024 2:43 PM CDT [facility] RBC 4.19 4.10 - 5.40 x10'6/uL 08/01/2024 2:43 PM CDT [facility] HGB 13.0 12.0 - 16.0 G/DL 08/01/2024 2:43 PM CDT [facility] HCT 38.4 36.0 - 47.0 % 08/01/2024 2:43 PM CDT [facility] MCV 91.6 78.0 - 100.0 FL 08/01/2024 2:43 PM CDT [facility] MCH 31.0 27.0 - 31.0 PG 08/01/2024 2:43 PM CDT [facility] MCHC 33.9 33.0 - 36.0 G/DL 08/01/2024 2:43 PM CDT [facility] RDW 13.2 11.5 - 14.5 % 08/01/2024 2:43 PM CDT [facility] PLT 281 150 - 350 x10'3/uL 08/01/2024 2:43 PM CDT [facility] MPV 9.4 7.4 - 10.4 FL 08/01/2024 2:43 PM CDT [facility] DIFFERENTIAL TYPE AUTOMATED DIFFERENTIAL 08/01/2024 2:43 PM CDT [facility] NEUTROPHILS % 68.6 % 08/01/2024 2:43 PM CDT [facility] LYMPHOCYTES % 18.2 % 08/01/2024 2:43 PM CDT [facility] MONOCYTES % 7.9 % 08/01/2024 2:43 PM CDT [facility] EOSINOPHILS % 4.8 % 08/01/2024 2:43 PM CDT [facility] BASOPHILS % 0.4 % 08/01/2024 2:43 PM CDT [facility] IMMATURE GRANS % 0.1 % 08/01/2024 2:43 PM CDT [facility] ABS. NEUTROPHILS 5.53 1.60 - 8.30 x10'3/uL 08/01/2024 2:43 PM CDT [facility] ABS. LYMPHOCYTES 1.47 0.80 - 4.70 x10'3/uL 08/01/2024 2:43 PM CDT [facility] ABS. MONOCYTES 0.64 0.00 - 1.50 x10'3/uL 08/01/2024 2:43 PM CDT [facility] ABS. EOSINOPHILS 0.39 0.00 - 0.40 x10'3/uL 08/01/2024 2:43 PM CDT [facility] ABS. BASOPHILS 0.03 0.00 - 0.20 x10'3/uL 08/01/2024 2:43 PM CDT [facility] ABS. IMMATURE GRANULOCYTES 0.01 0.00 - 0.03 x10'3/uL 08/01/2024 2:43 PM CDT [facility] 08/01/2024 9:26 AM CDT Starla Arshad DO LABORATORY Final Re sult [facility] [address] [place] [address], * VITAMIN D, 25 OH (08/01/2024 9:26 AM CDT) VITAMIN D 25 HYDROXY TOTAL S/P/B 31.9 30 - 100 NG/ML 08/01/2024 3:42 PM CDT [facility] Comment: DEFICIENT <20 INSUFFICIENT 20-30 SUFFICIENT 30-100 08/01/2024 9:26 AM CDT Starla Arshad LABORATORY Final Re sult Performing Organization Address City/[facility] Co de Phone Number [facility] [address] [place] [address], [place] [phone] * CT GENERIC (08/01/2024) Anatomical Region Laterality Modality Other 08/01/2024 us Doc [facility] Scanned SCANNING Final Resu lt * HEPATITIS C ANTIBODY (04/05/2023 8:24 AM READERS' ADVISORY SERVICE LIBRARIAN) HEPATITIS C AB NON-REACTI VE NON-REACT RAUL 04/05/2023 6:53 PM READERS' ADVISORY SERVICE LIBRARIAN [facility] Comment: ANTIBODIES TO HCV NOT DETECTED. DOES NOT EXCLUDE THE POSSIBILITY OF EXPOSURE TO HCV. 04/05/2023 8:24 AM READERS' ADVISORY SERVICE LIBRARIAN us Starla Arshad DO LABORATORY Final Re sult [facility] [address] [place] [address], [id number] * MG DIAG W WILMER BILAT DIGI [...] Examination: Bilateral digital diagnostic mammogram with CAD. [id number] Clinical history: Left breast lump and tenderness. [...] demonstrate any discrete solid or cystic mass. Martin appearing tissue architecture is demonstrated. Physical exam surveillance is advised with any further evaluation at this point guided on that basis. From a mammographic standpoint, routine follow-up in one year would seem adequate. These findings were discussed with the patient. Starla Arshad DO MAMMO Final Re sult from Last 3 Months or Most Recently Relevant to Health Maintenance Insurance [place] [address] MEDICAID Advance Directives * Full Code (Latest Code Status on File) Date Activated Date Inactivated Comments 09/22/2020 12:40 PM 09/23/2020 12:52 PM Care Teams Economic Forecaster Relationship Specialty Start Date End Date Starla Arshad DO [address] [place] [id number] PCP - General FAMILY PRACTICE 08/19/20
--- OUTSIDE RECORDS SUMMARY | 2024-10-25 00:26 | XMS_ITS | Encounter Summary ---
Author Organization [facility] Address [address] [place] [address] Care Team Providers Care Manager Unit Name Role Phone Unavailable Primary Care Provider Unavailabl e Encounter Details Date Type Department Care Team (Late st Contact Info) Description 01/28/2022 Lab Requisition [facility] [address] [place] [address] Kathy Mason MD [address] [place], [place] [id number] Illness, unspecified Social History Tobacco Use Types Packs/Day Years Used Date Smoking Tobacco: Never Assessed Comments Unknown Sex and Gender Information Value Date Recorded Sex Assigned at Not on file 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 01/28/2022 12:22 PM CDT [facility] Clinical History HEMATURIA 01/28/2022 12:22 PM CDT [facility] Materials Received One thin prep slide received from [facility] [id number]. All material will be returned. 01/28/2022 12:22 PM CDT [facility] Disclaimer The performance characteristics of all immunohistochemical and indirect immunofluorescence stains (if any) cited in this report were determined by the [facility]opathology [facility] of [facility]. Some of these tests were developed [...] attending (teaching) pathologist. 01/28/2022 12:22 PM CDT [facility] Case Report Surgical Pathology Report Case: [id number] Authorizing Provider: Kathy Mason MD Collected: 01/28/2022 10:46 AM Ordering Location: [facility] Received: 01/28/2022 10:51 AM Pathologist: Flaquito Bruno MD Specimen: Slide Consultation 01/28/2022 12:22 PM CDT [facility] Embedded Images 01/28/2022 12:22 PM CDT [facility] Pathology/Cytolo gy SURGICAL PATHOLOGY CONSULTATION AND REPORT ON REFERRED SLIDES PREPARED ELSEWHERE / Unknown 01/28/2022 10:46 AM CDT 01/28/2022 10:51 AM CDT Kathy Mason MD LAB - PATHOLOGY/CYTOLOGY ORDERAB LES Final Result [facility] [address] [facility] [place] [place] [address], [facility] [phone] documented in this encounter Visit Diagnoses Diagnosis Illness, unspecified documented in this encounter
--- OUTSIDE RECORDS SUMMARY | 2024-10-25 00:26 | XMS_ITS | Clinical Summary ---
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 MEDICARE ADVANTAGE [facility] MEDICARE ADVANTAGE [facility] MEDICARE ADVANTAGE [facility] Advance Directives For more information, please contact: [phone] * Full Code (Latest Code Status on File) Date Activated Date Inactivated Comments 02/09/2022 9:51 PM 02/12/2022 5:52 PM Care Teams Warehouse Checker Relationship Specialty Start Date End Date Jimmy Doyle DO [address] [place] [address] [phone] PCP - General Family Medicine 02/12/22 Derrell Varma MD [address] [facility] [address] [place] [address] Surgeon Surgery 02/12/22
--- OUTSIDE RECORDS SUMMARY | 2024-10-25 00:26 | XMS_ITS | Continuity of Care Document ---
Author Organization [facility] Address [address] [place] [address] [address] [place] [address] Phone Care Team Providers Care Scorekeeper Name Role Phone Idris PT, KEYON, Ave Unavailable Unavailable Procedures Procedure Date Therapeutic Exercise Neuromuscular Re-Ed Therapeutic Activities Hot or Cold Pack Neuromuscular Re-Ed Therapeutic Activities PT Evaluation Low Complexity Advance Directives Directive Yes / No Effective Date File Name No Information Encounters Encounter Description Practice Location Reason(s) For Visit Diagnoses Date Provider Providers Copied on Encounter [facility] [address], [id number], tel:[phone] [place] No Information Sep-0 [address] [facility] [address] [place] [address], [id number], tel:[phone] [place] No Information Sep-0 2 1 Idris Dorado. . Referring Provider: Jimmy Doyle , [address] [place] [address], [address]. tel:[phone], [id number], tel:[phone] [place] No Information 0- 1 Idris Dorado. . Referring Provider: Jimmy Doyle , [address] [place] [address], [address]. tel:[phone] Family History Family Member Type Diagnosis Age At Onset No Information Payers Payer name Insurance type Covered green party ID Authorcesiliapauline jamietristian(s) Medicare [place] [id number] Medicaid OON Write Off CI 00 Social [...]
--- OUTSIDE RECORDS SUMMARY | 2024-10-25 00:26 | XMS_ITS | Referral Summary ---
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 Gender Identity Not on file Sexual [...] of Treatment Not on file Insurance IDPA [facility] MEDICARE ADVANTAGE [place] [facility] MEDICARE ADVANTAGE [facility] MEDICARE ADVANTAGE IDPA Advance Directives For more information, please contact: [phone] * Full Code (Latest Code Status on File) Date Activated Date Inactivated Comments 02/09/2022 9:51 PM 02/12/2022 5:52 PM Care Teams Muff Winder Relationship Specialty Start Date End Date Jimmy Doyle DO [address] [place] [id number] PCP - General Family Medicine 02/12/22 Derrell Varma MD [address] [place] [address] Surgeon Surgery 02/12/22
--- OUTSIDE RECORDS SUMMARY | 2024-10-25 00:27 | XMS_ITS | Data Portability ---
Author Organization [place] - [facility] OFFICE Address [address] [place] [address] Care Team Providers Care Offset Platemaker Name Role Phone JESUS MACEDO Primary Care Provider [phone] JESUS MACEDO Referring Provider [phone] Assessment No assessment recorded. Plan of Treatment [...] By Organization Details Last Modified Time 04/30/2020 60877 Exercise advised Low cholesterol diet advised Low sodium diet advised [email or web address] Not available 04/30/2020 16:38:42 Scribed by Kamila Michele [facility]- [email or web address] Not available 04/30/2020 16:38:44 Reason for [...] Efra Whitman [facility] 05/03/2020 10:01:32 D-dimer Feu, Qn, Ia, Blood : D-dimer 04/01/20:0.37 Efra Whitman [facility] 05/03/2020 09:54:26 Cbc W/ Diff : 04/01/20:WBC 7.6,RBC 4.68,HGB 14.8,HCT 41.8,PLT 251. Efra Whitman [facility] 05/03/2020 09:50:44 Cmp, Serum Or Plasma : 04/02/20:Na 139,K 3.4,Cl 102,CO2 32,GLU 99,BUN 11,Cr 0.6,Mg 2.1 Efra Whitman [facility] 05/03/2020 09:54:26 Lipid Panel, Blood : 04/02/20: TC 167,TG 220,LDL 107,HDL 30. Efra Whitman [facility] 05/03/2020 09:54:26 Problems Name Problem SNOMED Code Status Onset Date Resolution Date Notes Provider Name and Address Organization Details Recorded Time Essential hypertension 73384291 Active 2020 [facility] 15:22:30 Cerebrovascula r accident 163106800 Active 2020 [facility] 15:22:39 Hypercholester olemia 15013865 Active 2020 [facility] 15:22:56 Depressive disorder 26306316 Active 2020 [facility] 15:23:04 Problem Notes None recorded. Procedures Surgical History Date Name Laterality Status Provider Name and Address Organization Details Recorded Time Hysterectomy completed [facility] 04/30/2020 15:24:35 Cholecystectomy completed [facility] 04/30/2020 15:24:43 Imaging Results None recorded. Procedure Notes None recorded. Medical Equipment None Reported. Allergies Allergen ID Allergen Name Allergen Category Reaction Reaction Severity Criticality Documentation Date Start Date Code Code System Note Provider Name and Address Organization Details Recorded Time 00287 sulfobrom ophthalei n sodium medicatio n Not available Not available Not available 04/30/2020 26350 0 RxNorm Renae [facility], [facility] 15:21:51 17491 tetracycl ine medicatio n Not available Not available Not available 04/30/2020 74544 RxNorm Renae [facility], [place] - [facility] 15:22:03 Medications Name Sig [...] blood by Pulse oximetry Body temperature Systolic And Diastolic Provider Name and Address Organization Details Last Updated DateTime 165.1 cm 28.3 kg/m2 86380.7 g 84 /min 18 /min 94 % 94 % 97.2 [degF] 170/100 mm[Hg] Renae Guillenmaren [facility] 15:31:15 Social History Question Answer Notes LastModified by Organizat ion Details LastModified Time Tobacco Smoking Status Current Every Day Smoker Renae Pineda kyle [facility] 04/30/2020 15:23:42 Do You Have An Advance Directive? No [place] [address] Information not available 04/30/2020 What Is Your Level Of Caffeine Consumption? None [place] [address] Information not available 04/30/2020 How Much Tobacco Do You Chew? None [place] [address] Information not available 04/30/2020 What Type Of Diet Are You Following? REGULAR [place] [address] Information not available 04/30/2020 Which Illicit Or Recreational Drugs Have You Used? No [facility] Information not available 04/30/2020 Live Alone Or With Others? With Others [place] [address] Information not available 04/30/2020 Marital Status Single [place] [address] Informatio n not available 04/30/2020 How Many Children Do You Have? 1 [place] [address] Information not available 04/30/2020 How Much Tobacco [...] SNOMED-CT Code Diagnosis ICD10 Code Diagnosis Note 74791 MD Izzy Naqvi Office [address] [facility] [address] [place] [id number] 04/30/2020 14:29:44 04/30/2020 15:51:37 Atypical chest pain 341266442 R07.89 Treadmill Myoview Stress test, has high [place] Risk score. Has Known CAD, or CAD risk equivalent . To look for any ischemia. 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 Cessation highly advised Essential hypertension 55051020 I10 Hyperlipidemia 50326439 E78.5 Needs to keep LDL less than 100, and HDL more than 40.Current ly not on statin therapyWil l get fasting lipids for follow-up Peripheral vascular disease 653155776 I73.9 Will get arterial doppler, to evaluate severity of peripheral vascular disease Health Concerns Section Related Observation LastModified by Organization Detai ls LastModified Time None Recorded Concern Status LastModified by Organization Details LastModified Time None Recorded Advance Directives Directive N: Payers Insurance Date Sequence Insurance Name Policy Number Policy Brown Covered Member ID Brown Member ID Guarantor Name 04/27/2020 2 [place] [facility] Jeniffer Weller [id number] Jeniffer Weller 04/27/2020 1 [place] Jeniffer Weller [id number] Jeniffer Weller Notes Date Note Type Note Provider Name and Address Organization Details Recorded Time 04/30/2020 text/html 04/30/2020 CC: chest pain Patient is a 64-year-old female with a past medical history of HLD, HTN, COPD, and CKD who is seen in cardiac consultation with a chief complaint of chest pain and hospital follow-up. She was admitted to [facility] on 04/01/2020 with chest pain. Her [...] She denies ETOH abuse. Merrick Lin MD [address] [place], [address], [facility] 04/30/2020 16:39:25 OBGyn Episode No OBEpisode recorded.
--- NOTE | 2024-10-25 06:41 | WPDHPUPDATE1 ---
History and Physical Update Update Date/Time: 10/25/24 06:41 History and Physical has been reviewed, including an updated exam of the patient. There are NO changes in the patient's condition. Risks, benefits, and alternatives have been discussed and questions answered. Patient agrees to proceed with procedure.
[2024-10-25 09:10] VITALS: BP 129/62; PULSE 71; RESP 18; TEMP 36.2; O2SAT 96
[2024-10-25] MEDS: LACTATED RINGERS 1,000 ML 30 ML IV CONT (09:25)
--- NOTE | 2024-10-25 09:50 | P.PNAN_ITS ---
Anes - Initial Pre Proc Eval Procedure: Operation Date: 10/25/24 11:00 Proposed Procedures p Cystoscopy, Right Retrograde Pyelogram, Right Ureteroscopy, Jelmyto Instillation - Tacos Bowers MD Date/Time: 10/25/24 09:50 Surgeon: Tacos Bowers MD Pre Op Diagnosis: right urothelial CA Patient Data Age: 68 Gender: F Height: 1.66 m Weight: 62.7 kg Last Vital Signs Temp 36.2 C L 10/25/24 09:10 Pulse 71 10/25/24 09:10 Resp 18 10/25/24 09:10 BP 129/62 10/25/24 09:10 Pulse Ox 96 10/25/24 09:10 O2 Del Method Room Air 10/25/24 09:10 Allergies Allergy/AdvReac Type Severity Reaction Status Date / Time Penicillins Allergy Unknown Rash Verified 10/25/24 09:37 Sulfa (Sulfonamide Allergy Unknown Hives Verified 10/25/24 09:37 Antibiotics) sulfanilamide Allergy Unknown Hives Verified 10/25/24 09:37 ciprofloxacin AdvReac Intermediate Shakiness Verified 10/25/24 09:37 amitriptyline (From Elavil) AdvReac Unknown Confusion Verified 10/25/24 09:37 codeine AdvReac Unknown N/V Verified 10/25/24 09:37 tetracycline AdvReac Unknown Nausea Verified 10/25/24 09:37 doxycycline AdvReac Nausea and Verified 10/25/24 09:37 Vomiting Home Medications ?Medication ?Instructions ?Recorded ?Confirmed ?Type aspirin 81 mg tablet,delayed 81 mg PO DAILY 04/05/19 10/25/24 History release (Aspir-) hydrochlorothiazide 25 mg tablet 25 mg PO DAILY #90 tabs 08/27/20 10/25/24 Rx atorvastatin 40 mg tablet (Lipitor) 40 mg PO HS 01/10/21 10/25/24 History isosorbide mononitrate 30 mg 90 mg PO QACLUNCH 01/10/21 10/25/24 History tablet,extended release 24 hr nitroglycerin 0.4 mg sublingual 0.4 mg sublingual PRN CHEST PAIN 01/10/21 09/20/24 History tablet potassium chloride 10 mEq 10 meq PO DAILY 01/10/21 10/25/24 History tablet,extended release (K-Tab) venlafaxine 150 mg See Rx Instructions .Route .COMPLEX 03/02/22 10/25/24 History capsule,extended release 24 hr (Effexor XR) ranolazine 500 mg tablet,extended 500 mg PO Q12HR 30 days #60 tabs 03/04/22 10/25/24 Rx release,12 hr (Ranexa) cholecalciferol (vitamin D3) 125 125 mcg PO DAILY 11/12/22 10/25/24 History mcg (5,000 unit) tablet (Vitamin D3) hydrocodone 10 mg-acetaminophen 1 tablet PO PRN PRN pain 06/18/24 10/18/24 History 325 mg tablet oxybutynin chloride 10 mg 10 mg PO HS 06/18/24 10/25/24 History tablet,extended release 24 hr alprazolam 0.5 mg tablet 0.5 mg PO TID PRN anxiety 07/30/24 10/25/24 History carvedilol 12.5 mg tablet 12.5 mg PO BID 07/30/24 10/25/24 History ondansetron 4 mg disintegrating 4 mg PO Q6H PRN nausea and 08/14/24 09/20/24 Rx tablet vomiting #10 tabs icosapent ethyl 1 gram capsule 2 g PO BID 09/12/24 10/25/24 History quetiapine 300 mg tablet (Seroquel) 300 mg PO HS 09/12/24 10/25/24 History tolterodine 2 mg tablet 2 mg PO Q12H 09/12/24 10/25/24 History ondansetron 4 mg disintegrating 4 mg PO Q8H PRN nausea and 10/18/24 Rx tablet vomiting #20 tabs Patient hx anesthesia problems: none Family hx anesthesia problems: none Results Review: All pre-operative results and documents have been reviewed as part of the pre- operative evaluation. FOR[facility]LY [facility] Past Medical History Medical History Chronic, continuous use of opioids Bipolar disorder, unspecified CAD (coronary artery disease) Hypertension Emphysema lung Screening for colon cancer Screening for breast cancer Postmenopausal Hx of pancreatitis Depression Kidney stones Kidney disease Urinary frequency High cholesterol Pneumonia Vision abnormalities Weight gain Cholecystectomy planned Anxiety Surgical History Surgical History H/O excision of mass 11/22/22 Excision of 5 cm perianal cyst History of cholecystectomy Hx of tonsillectomy History of partial hysterectomy H/O colonoscopy History of esophagogastroduodenoscopy (EGD) History of laryngoscopy Family History Family History Sibling Patient's brother is in good health Dementia Mother Family history of coronary artery disease Acute myocardial infarction Father Patient's father is Acute myocardial infarction Cerebrovascular accident Unknown Heart disease Cerebrovascular accident Other Family history of mental disorder Social History Social History Smoking packs per day: 1 Smoking cigarettes per day: 20.0 Years smoked: 52 Smoking pack-years: 52.00 Smoking status: Current every day smoker Tobacco type: cigarettes Second hand tobacco smoke exposure: No Alcohol intake: never Substance use: current Substance use type: marijuana Other substance usage details: Daily Last use: 09/12/24 Lack of Transportation: No Lack of Food: Never True Current Housing: I Have Housing Concerned About Future Housing: No Difficulty Paying Gas/Electric Bills: No Difficulty Paying for Meds: No Currently Unemployed: No Education: Decline to Answer Difficulty w/ Childcare or Family Care: No Living arrangements: alone Spiritual care concerns: No Anes - Eval Final PreProcedure Day of Procedure 10/25/24 09:50 Patient weight: normal Heart: regular rate and rhythm Lungs: clear to auscultation Airway: Mallampati scale class II Neurological: alert and oriented Last oral intake: >/= 8 hours ASA classification: IV Emergent: no Anesthetic plan: proceed Anesthesia type and monitoring: general LMA and standard monitoring Results Review: All pre-operative results and documents have been reviewed as part of the pre- operative evaluation. Informed Consent: The patient's anesthetic plan and its attendant risks and benefits were discussed with the patient/family/POA. Questions were solicited and answers provided to the satisfaction of the patient/family/POA.
[2024-10-25] MEDS: SODIUM BICARBONATE TAB 650 MG TABLET 1300 MG PO (10:02)
[2024-10-25] MEDS: ceFAZolin 2 GM in SODIUM CHLORIDE 0.9% IV 50 ML 100 ML IVPB (10:36)
[2024-10-25] MEDS: MITOMYCIN 36 MG URETHRAL (10:57)
--- NOTE | 2024-10-25 11:03 | W.PM.PROC2 ---
Procedure Note - Detailed Date of Procedure 10/25/24 Pre-op Diagnosis Right upper tract urothelial CA Post-op Diagnosis Same Procedure Performed Cystoscopy, right retrograde pyelography, right Jelmyto installation Surgeon Tacos Bowers MD Anesthesia General Description of Procedure Patient is brought to the operative suite where she was prepped and draped in routine sterile fashion while in dorsal lithotomy position after the uneventful induction of a general LMA anesthetic. A 19F rigid cystoscope was placed in the bladder. The bladder was carefully inspected. Mucosa is normal without hyperemia. There was no intravesical neoplasm. A 0.035 in glidewire was advanced in the right renal pelvis and a ureteral catheter was advanced over the guidewire. The retrograde pyelogram was obtained to ensure appropriate positioning of the ureteral catheter in the collecting system. Prior retrograde pyelography had determined a renal pelvic volume of 9cc. We opted to use that prior volume determination for today's instillation. After appropriate reconstitution of the Jelmyto in ice retrograde injection was undertaken through the same ureteral catheter positioned at the UPJ. A total of 9mL (36 mg) of Jelmyto was instilled in the renal pelvis without incident. The volume of Jelmyto wasted was 11 mL (44 mg). the ureteral catheter was allowed to stand for 60 seconds and then removed with ease. Because the patient has no history of ureteral stricture I opted not to place a ureteral stent. Patient tolerated the procedure well was taken to the recovery room in good condition. Estimated Blood Loss 0 Drains No
[2024-10-25 11:06] VITALS: BP 110/61; PULSE 65; RESP 12; O2SAT 100
[2024-10-25 11:20] VITALS: BP 117/59; PULSE 67; RESP 16; O2SAT 100
[2024-10-25 11:35] VITALS: BP 127/64; PULSE 65; RESP 14; O2SAT 96
[2024-10-25 11:41] VITALS: BP 110/61; PULSE 65; RESP 14
[2024-10-25 12:10] VITALS: BP 122/61; PULSE 65; RESP 14
--- NOTE | 2024-10-25 12:22 | SUR.PHASEII ---
DR. ROD ASKED TO ORDER SILVADENE CREAM PER PATIENT REQUEST.
--- NOTE | 2024-10-25 12:26 | SUR.PHASEII ---
PATIENT DRESSED, WAITING FOR HER RIDE AND SLIVADENE CREAM FROM PHARMACY.
--- NOTE | 2024-10-25 13:09 | SUR.PHASEII ---
DR. ROD STATED PATIENT DOES NOT HAVE TO APPLY SILVADENE CREAM PRIOR TO DISCHARGE. MAY USE AT HOME.
== END 2024-10-25 12:40 | disposition home or self-care (01) ==
PROVIDERS: PCP Student in an Organized Health Care Education/Training Program; Visit Provider Urology
PROC: (CPT 52352; principal; 2024-10-25 11:00)
DX: C65.1 Malignant neoplasm of right renal pelvis (principal); I10 Essential (primary) hypertension; J43.9 Emphysema, unspecified; R35.0 Frequency of micturition; F31.9 Bipolar disorder, unspecified; I25.10 Atherosclerotic heart disease of native coronary artery without angina pectoris; E78.00 Pure hypercholesterolemia, unspecified; F41.9 Anxiety disorder, unspecified; N28.9 Disorder of kidney and ureter, unspecified; F17.210 Nicotine dependence, cigarettes, uncomplicated; F12.90 Cannabis use, unspecified, uncomplicated; Z79.891 Long term (current) use of opiate analgesic; Z79.82 Long term (current) use of aspirin; Z98.890 Other specified postprocedural states; Z90.49 Acquired absence of other specified parts of digestive tract; Z87.442 Personal history of urinary calculi; Z87.19 Personal history of other diseases of the digestive system; Z82.49 Family history of ischemic heart disease and other diseases of the circulatory system
CPT/HCPCS: C9789; 74420; J0690; A9270; C1769; J2003; J2250; J2704; J3010; J7120; J9281

== ENCOUNTER 2024-11-01 00:55 | Day surgery (SDC) | payer MEDICARE, MEDICAID, SELFPAY ==
[2024-09-20 14:58] VITALS: BMI 22.7
--- NOTE | 2024-09-20 15:03 | PC.NURSE ---
Report to the Outpatient Waiting Room, entrance under the green pavilion located off [facility], at time _10 AM on date __11/01/24 . Planned Procedure Time:1200 NOON .? Time changes happen often and if your time is changed the preop area will call you the afternoon before. - You and your visitor will be asked to self-screen and do not enter if you have any COVID symptoms. Please call surgeon if you need to reschedule. - A mask is optional within the hospital at this time. Patients may have clear liquids (water, carbonated beverages, clear teas, apple juice) until 3 hours prior to surgery ( 9 AM ) with a maximum of 20 ounces. - No food from midnight until time of surgery and no smoking, or chewing tobacco (or any form of nicotine). No chewing gum, candy or mints. Take only the following medications with a SIP of water on the morning of surgery: _ALPRAZOLAM,CARVEDILOL, HYDROCODONE IF NEEDED FOR PAIN,VENLAFAXINE,RANOLAZINE DO NOT STOP ANY OF YOUR OTHER PRESCRIPTION MEDICATIONS PRIOR TO SURGERY EXCEPT THE FOLLOWING Hold all vitamins and supplements for 3 days per anesthesiologist.LAST DOSE 10/28/24 Medications to discontinue per physician ____ASPIRIN HELD SINCE 09/19/24 Please no make-up, nail pashto, hairspray, perfume, deodorant, or body powder the day of surgery.? No jewelry (including any body piercings) or valuables the day of surgery, leave them at home.? Please take a shower or bath the night before, or the morning of, surgery with an antibacterial soap.? Wear comfortable, loose fitting clothing.? Children are encouraged to wear pajamas. - Jewelry must be removed prior to entering the operating room.? Rings and piercings that are not removed may be cut off. - The hospital will not accept responsibility for valuables.? - Please leave all valuables, including medications, at home the day of surgery. If you are going home after surgery, a licensed utility worker driver must drive you home.? - NO public transportation without another adult if you receive anesthesia. - We recommend that an adult stay with you for 24 hours following discharge. - We also recommend that you do not drive, make important decision, drink alcoholic beverages, or take any drugs that were not prescribed by your health care provider for at least 24 hours after your discharge time. For Pediatric surgeries, we recommend two adults accompany the child home. Follow any additional instructions given to you from your surgeon. Telephone instructions given to __PATIENT and asked if any additional questions and then verbalized understanding. Patient advised to call surgeon office or pre surgery nurse liaison [phone] if any additional questions.
--- NOTE | 2024-09-20 15:06 | PC.NURSE ---
NO CHANGE IN HEALTH HX OR MEDS. WILL CALL WITH ANY CHANGES
[2024-11-01] VITALS (7 sets, daily range): BP systolic 120–148; BP diastolic 62–76; PULSE 72–83; RESP 11–18; TEMP 36.4–36.8; O2SAT 94–100
--- NOTE | ~2024-11-01 | XR_ITS ---
XR retrograde pyelogram RT Ordering provider: Tacos Bowers MD History: . CYSTO RT RETROGRADE . Comparison: None. FINDINGS/impression: Fluoroscopy time is 33.5 seconds. Cumulative dose is 9.94 mGy. Right pyelogram with no significant hydronephrosis. Reviewed, dictated and finalized at location A.
--- OUTSIDE RECORDS SUMMARY | 2024-11-01 00:58 | XMS_ITS | Clinical Summary ---
Author Organization [facility] Address [facility] [place] [address] Care Team Providers Care Line Haul Truck Driver Name Role Phone Starla Arshad Vladimir [...] capsuleIndication s:Bipolar affective disorder, currently depressed, mild ([facility]) TAKE 1 CAPSULE(150 MG) BY MOUTH DAILY 90 capsule 09/04/19 25 Active tolterodine (DETROL) 2 MG tablet Take 1 tablet (2 mg total) by mouth 2 (two) times daily as needed. 08/15/19 25 Active HYDROcodone-aceta minophen (NORCO) 10-325 MG tabletIndications :Chronic Pain Take 1 tablet by mouth every 8 (eight) hours as needed for Pain. Indications: Chronic Pain 90 tablet 10/17/19 25 Active oxybutynin XL (DITROPAN-XL) 10 MG 24 hr tabletIndications :Incomplete emptying of bladder TAKE 1 TABLET(10 MG) BY MOUTH EVERY NIGHT AT BEDTIME 90 tablet 10/24/19 25 Active ALPRAZolam (XANAX) 0.5 MG tabletIndications :Anxiety Take 1 tablet (0.5 mg total) by mouth 3 (three) times daily as needed for Anxiety. 90 tablet 11/01/19 25 Active oxybutynin XL (DITROPAN-XL) 10 MG 24 hr tabletIndications :Incomplete emptying of bladder TAKE 1 TABLET(10 MG) BY MOUTH EVERY NIGHT AT BEDTIME 90 tablet 07/28/19 25 2024 Discontinued HYDROcodone-aceta minophen (NORCO) 10-325 MG tabletIndications :Chronic Pain Take 1 tablet by mouth every 8 (eight) hours as needed for Pain. Indications: Chronic Pain 90 tablet 09/12/19 25 2024 Discontinued(R eorder) ALPRAZolam (XANAX) 0.5 MG tabletIndications :Anxiety Take 1 tablet (0.5 mg total) by mouth 3 (three) times daily as needed for Anxiety. 90 tablet 09/25/19 25 2024 Discontinued(R eorder) Active Problems Problem Noted Date Diagnosed Date Ureteral cancer, right ([facility]) 025 Bipolar affective disorder, currently depressed, mild ([facility]) 05/03/2023 Sedative, hypnotic or anxiol ytic dependence, uncomplicated ([facility]) 03/25/2022 PAD (peripheral artery disease) 02/19/2022 Right iliac artery stenosis 02/19/2022 Allergies 07/31/2021 Right lower quadrant abdominal pain 07/31/2021 Tobacco abuse 07/31/2021 Radiculopathy, lumbar region 12/29/2020 Other intervertebral disc degeneration, lumbar r egion 12/29/2020 Spondylolisthesis of lumbar region 12/29/2020 Coronary artery disease of n ative artery of [place] heart with stable angina pectoris 10/01/2020 Degenerative [...] 08/18/2020 Nausea 08/18/2020 Nicotine dependence 08/18/2020 On usp drug therapy 08/18/2020 Polyarthritis 08/18/2020 Postmenopausal status 08/18/2020 Primary osteoarthritis of left knee 08/18/2020 Triggering of digit 08/18/2020 Vitamin D deficiency 08/18/2020 Cerebrovascular accident ([facility]) 04/30 Body mass index (BMI) of 28.0 to 28.9 in adult 0 10/12/2018 Low back pain 10/12/2018 Muscle spasm 02/03/2018 Lumbar foraminal stenosis 01/17/2018 Bulging lumbar disc 01/16/2018 Hypertension 01/16/2018 GERD (gastroesophageal reflux disease) 8 Lumbar stenosis 01/16/2018 Osteoarthrosis 01/16/2018 Depressive disorder 01/16/2018 Chronic obstructive pulmonary disease ([facility]) 01/16/2018 Hyperlipidemia 01/16/2018 Resolved Problems Problem Noted Date Diagnosed Date Resolved Date Screening for breast cancer 08/18/2020 08/25/2020 Infiltrate of lung present on chest x-ray 08/18/2020 05/03/2024 Encounter for preventive health examination 02/13/2014 08/25/2020 Encounters Date Type Department Care Team Description 10/25/2024 Scan [facility] Scanned, [facility] Procedure (SCAN) 10/18/2024 Scan [facility] Scanned, [facility] Procedure (SCAN) 10/16/[address] [phone] Starla Arshad, DO Medication Request 10/11/2024 Scan [...] [facility] Lab (SCAN) 09/24/[address] [phone] Starla Arshad, DO Medication Request 09/21/2024 1:45 PM CDT Office Visit [facility] [address] [phone] Abhi Aguilar MD Coronary Artery Disease (6mo) 09/21/2024 Travel 09/18/[address] [phone] Starla Arshad, DO Earache 09/17/2024 Scan [facility] Scanned, [facility] 09/12/2024 12:40 PM CDT Office Visit [address] [phone] Clare Rubio APNP Ear Concern (The patient states she has had rt ear itching since Tuesday. The patient has been using debrox. ) 09/12/2024 Travel 09/12/[address] [address] Starla Arshad P, DO Earache 09/11/[address] [address] Starla Arshad P, DO Medication Request 09/04/2024 Scan [facility] Scanned, [facility] 08/15/2024 Scan [facility] Scanned, [facility] Lab (SCAN) 08/14/2024 Scan [facility] Scanned, [facility] Image (SCAN); Lab (SCAN) 08/13/2024 2:00 PM CDT Allied Health/Nurse Visit [address] [phone] Starla Arshad P, DO Allied Health Visit (A1C) 08/13/2024 Results Follow-Up [address] [phone] Starla Arshad P, DO A1C (BACK OFFICE) 08/13/2024 Travel 08/09/2024 Scan [facility] Scanned, [facility] Pathology (SCAN); Procedure (SCAN); Lab (SCAN) 08/06/2024 Scan [facility] Scanned, [facility] 08/02/2024 Results Follow-Up [address] [phone] Starla Arshad P, DO VITAMIN D, 25 OH, LIPID PANEL, TSH W/REFLEX, Additional followed-up results: 2 from Last 3 Months Immunizations Immunization Administration [...] Sex Assigned at Female 05/03/2024 9:57 AM YARN SPOOLER Legal Sex Female 4:45 PM CDT Gender Identity Female 05/03/2024 9:57 AM YARN SPOOLER Sexual Orientation Not on file Last Filed [...] Description 11/05/2024 10:20 AM CDT Office Visit [facility] Family & Internal Medicine - [address] [phone] Starla Arshad, [address] [place] [address] 03/22/2025 11:45 AM YARN SPOOLER Office Visit [facility] [phone] Abhi Aguilar MD [address] [facility] [address] [place] [phone] Health Maintenance Due Date Last Done Comments DTaP, Tdap and Td Vaccines (1 - Tdap) 1976 RSV Immunization or 60+ Years (1 - Risk 60-74 years 1-dose series) 2017 Mammogram Screening 09/09/2022 09/09/2020, COVID-19 Vaccine (6 - Pfizer risk 2023- season) 2024 01/18/2024, 01/27/2023, 01/27/2023, Additional history exists Annual Medicare Wellness Visit 10/31/2024 10/31/2023 Dexa Scan (General) 01/31/2025 Postpone d from 2022 (Patient Refused) Colorectal Cancer Screening Colonoscopy (10 Years) 09/10/2098 Postponed from 1957 (Patient Refused) Zoster Vaccines Completed 04/06/2021, 01/27/2021 Hepatitis C Completed 04/05/2023 Pneumococcal Vaccine: 50+ Years Completed 09/28/2023, 12/31/2022, 01/12/2020, Additional history exists PHQ-2 (Physician [place]) Completed 05/03/2024 Meningococcal B Vaccine Aged Out [...] independent in ADLs upon discharge from [facility] Daysi Nayak RN Procedures Procedure Name Priority Date/Time Associated Diagnosis Comments PROCEDURE GENERIC (SCAN ORDER) 10/25/2024 PROCEDURE GENERIC (SCAN ORDER) 10/18/2024 PROCEDURE GENERIC (SCAN ORDER) 10/18/2024 IMAGE GENERIC 10/11/2024 PROCEDURE GENERIC (SCAN ORDER) [...] ORDER) 08/09/2024 PROCEDURE GENERIC (SCAN ORDER) 08/09/2024 HEPATITIS C ANTIBODY Routine 04/05/2023 8:24 AM YARN SPOOLER Primary hypertension Screening for lipid disorders Screening for endocrine, metabolic and immunity disorder Annual physical exam Need for hepatitis C screening test MG MILEY W WILMER BILAT DIGI Routine 09/09/2020 12:14 PM CDT Breast lump on left side at 10 o'clock position from Last 3 Months or Most Recently Relevant to Health Maintenance Results * PROCEDURE GENERIC (SCAN ORDER) (10/25/2024) 10/25/2024 [facility] Scanned SCANNING Final Resu lt * PROCEDURE GENERIC (SCAN ORDER) (10/18/2024) 10/18/[address] [facility] Scanned SCANNING Final Resu lt * PROCEDURE GENERIC (SCAN ORDER) (10/18/2024) 10/18/[address] [facility] [facility] Scanned SCANNING Final Resu lt * IMAGE GENERIC (10/11/2024) Only the most recent of2 resultswithin the time period is included. Anatomical Region Laterality Modality Other 10/11/[address] [facility] Scanned SCANNING Final Resu lt * PROCEDURE GENERIC (SCAN ORDER) (10/11/2024) 10/11/2024 [facility] Scanned SCANNING Final Resu lt * OUTSIDE LAB (SCAN ORDER) (10/10/2024) Only the most recent of7 resultswithin the time period is included. 10/10/2024 us Doc [facility] Scanned SCANNING Final Resu lt * PROCEDURE GENERIC (SCAN ORDER) (10/04/2024) 10/04/2024 us Doc [facility] Scanned SCANNING Final Resu lt * PROCEDURE GENERIC (SCAN ORDER) (10/04/2024) 10/04/2024 us Doc [facility] Scanned SCANNING Final Resu lt * PROCEDURE GENERIC (SCAN ORDER) (10/04/2024) 10/04/[address] [facility] Scanned SCANNING Final Resu lt * PROCEDURE GENERIC (SCAN ORDER) (09/27/2024) 09/27/[address] [facility] Scanned SCANNING Final Resu lt * PROCEDURE GENERIC (SCAN ORDER) (09/27/2024) 09/27/[address] [facility] Scanned SCANNING Final Resu lt * A1C (BACK OFFICE) (08/13/2024) HGB A1C 5.6 % [facility] 08/13/2024 Starla Arshad DO LABORATORY Final Re sult [facility] [address] [place] [address], [place] * PATHOLOGY GENERIC (SCAN ORDER) (08/09/2024) Only the most recent of2 resultswithin the time period is included. 08/09/2024 [facility] Scanned SCANNING Final Resu lt * PROCEDURE GENERIC (SCAN ORDER) (08/09/2024) 08/09/2024 [facility] Scanned SCANNING Final Resu lt * PROCEDURE GENERIC (SCAN ORDER) (08/09/2024) 08/09/2024 [facility] Scanned SCANNING Final Resu lt * HEPATITIS C ANTIBODY (04/05/2023 8:24 AM YARN SPOOLER) HEPATITIS C AB NON-REACTI VE NON-REACT RAUL 04/05/2023 6:53 PM YARN SPOOLER [facility] Comment: ANTIBODIES TO HCV NOT DETECTED. DOES NOT EXCLUDE THE POSSIBILITY OF EXPOSURE TO HCV. 04/05/2023 8:24 AM YARN SPOOLER Result [facility] Starla Arshad DO LABORATORY Final Re sult [facility] [address] [place] [address], [id number] * MG DIAG W WILMER BILAT DIGI [...] Examination: Bilateral digital diagnostic mammogram with CAD. [id number] Clinical history: Left breast lump and tenderness. [...] demonstrate any discrete solid or cystic mass. [place] appearing tissue architecture is demonstrated. Physical exam surveillance is advised with any further evaluation at this point guided on that basis. From a mammographic standpoint, routine follow-up in one year would seem adequate. These findings were discussed with the patient. us Starla Arshad DO MAMMO Final Re sult from Last 3 Months or Most Recently Relevant to Health Maintenance Insurance [facility] Member Subscriber Plan / Payer (Ef fective 2021-Present) Name:Jeniffer Weller Relation to Subscriber:Self Name:Jeniffer Weller Payer ID:[id number] (NAIC) Type:Not on file Address: [place] [phone] MEDICAID Advance Directives * Full Code (Latest Code Status on File) Date Activated Date Inactivated Comments 09/22/2020 12:40 PM 09/23/2020 12:52 PM Care Teams Line Haul Truck Driver Relationship Specialty Start Date End Date Starla Arshad DO [address] [place] [phone] PCP - General FAMILY PRACTICE 08/19/20
--- OUTSIDE RECORDS SUMMARY | 2024-11-01 00:58 | XMS_ITS | Continuity of Care Document ---
Author Organization [facility] Address [address] [place] [address] [address] [place] [address] Phone Care Team Providers Care Door Installer Name Role Phone Idris PT, KEYON, Ave Unavailable Unavailable Procedures Procedure Date Therapeutic Exercise Neuromuscular Re-Ed Therapeutic Activities Hot or Cold Pack Neuromuscular Re-Ed Therapeutic Activities PT Evaluation Low Complexity Advance Directives Directive Yes / No Effective Date File Name No Information Encounters Encounter Description Practice Location Reason(s) For Visit Diagnoses Date Provider Providers Copied on Encounter [facility] [address], [id number], tel:[phone] [place] No Information Sep-0 1 Idris Dorado. . [facility] [address] [place] [address], [id number], tel:[phone] [place] No Information Sep-0 2 1 Idris Dorado. . Referring Provider: Jimmy Doyle , [address] [place] [address], [id number]. tel:[phone], [id number], tel:[phone] [place] No Information 0- 1 Idris Dorado. . Referring Provider: Jimmy Doyle , [address] [place] [address], [id number]. tel:[phone] Family History Family Member Type Diagnosis Age At Onset No Information Payers Payer name Insurance type Covered democrat ID Authorcesiliapauline jamietristian(s) Medicare [place] [id number] Medicaid OON Write Off CI 00 Social [...]
--- OUTSIDE RECORDS SUMMARY | 2024-11-01 00:58 | XMS_ITS | Encounter Summary ---
Author Organization [facility] Address [address] [place] [address] Care Team Providers Care Sports Manager Name Role Phone Unavailable Primary Care Provider Unavailabl e Encounter Details Date Type Department Care Team (Late st Contact Info) Description 01/28/2022 Lab Requisition [facility] [address] [place] [address] Kathy Mason MD [address] [place], [place] [id number] Illness, unspecified Social History Tobacco Use Types Packs/Day Years Used Date Smoking Tobacco: Never Assessed Comments Unknown Sex and Gender Information Value Date Recorded Sex Assigned at Not on file Legal Sex Female 6:27 PM SHIP/REC/DOC CONTROL Gender Identity Not on file Sexual Orientation [...] 10:46 AM CDT) Final Diagnosis URINE/VOIDED (OSC: [id number]; 01/25/2022): - Negative for high grade urothelial carcinoma 01/28/2022 12:22 PM CDT [facility] at 1222 CDT Microscopic Description and Comment Microscopic examination substantiates the final diagnosis. 01/28/2022 12:22 PM CDT [facility] Clinical History HEMATURIA 01/28/2022 12:22 PM CDT [facility] Materials Received One thin prep slide received from [facility] [id number]. All material will be returned. 01/28/2022 12:22 PM CDT [facility] Disclaimer The performance characteristics of all immunohistochemical and indirect immunofluorescence stains (if any) cited in this report were determined by the Histopathology Laboratory of [facility]. Some of these tests were developed by [...] attending (teaching) pathologist. 01/28/2022 12:22 PM CDT [facility] Case Report Surgical Pathology Report Case: [id number] Authorizing Provider: Kathy Mason MD Collected: 01/28/2022 10:46 AM Ordering Location: [facility] Received: 01/28/2022 10:51 AM Pathologist: Flaquito Bruno MD Specimen: Slide Consultation 01/28/2022 12:22 PM CDT [facility] Embedded Images 01/28/2022 12:22 PM CDT [facility] Pathology/Cytolo gy SURGICAL PATHOLOGY CONSULTATION AND REPORT ON REFERRED SLIDES PREPARED ELSEWHERE / Unknown 01/28/2022 10:46 AM CDT 01/28/2022 10:51 AM CDT Kathy Mason MD LAB - PATHOLOGY/CYTOLOGY ORDERAB LES Final Result [facility] [address] [place] [address], [facility] [phone] documented in this encounter Visit Diagnoses Diagnosis Illness, unspecified documented in this encounter
--- OUTSIDE RECORDS SUMMARY | 2024-11-01 00:58 | XMS_ITS | Clinical Summary ---
Author Organization [facility] Address [address] [place] [address] Care Team Providers Care Cutter V Groove Name Role Phone Unavailable Primary Care Provider Unavailabl e Source Comments [facility],non-owned Affiliates and Associated Physician Practices is amultiple site organization consisting of ambulatory clinics and hospital sitesin [place], [place], [place] and [place]. This disclosure is being madepursuant to the Care Everywhere program and may not contain all information available regarding this patient. Last updated 18.[facility] [employer] Social History Tobacco Use Types Packs/Day Years Used Date Smoking Tobacco: Never Assessed Comments Unknown Sex and Gender Information Value Date Recorded Sex Assigned at Not on file Legal Sex Female 6:27 PM TOBACCO SHAKER Gender Identity Not on file Sexual Orientation [...] VACCINE (1 of 2) 12/05/2007 COVID-19 VACCINE (1 - 2023-2 5 season) 2023 DEPRESSION SCREENING 04/18/2024 MEDICARE AWV CALENDAR YEAR 2024 INFLUENZA VACCINE (#1) 2024 Respiratory Syncytial Virus (RSV) Vaccine Pt: [...] patient's age to complete this topic Insurance [facility] MANAGED MEDICARE [facility] MEDICAID - [place] SELF PAY NO INSURANCE Member Subscriber Plan / Payer (Ef fective for All Dates) Name:Jeniffer Vargas Member ID:Not on file Relation to Subscriber:Not on file Name:JENIFFER VARGAS Subscriber ID:Not on file (Home) Address: [address] [place] [phone] Payer ID:Not on file Group ID:Not on file Type:Self Pay Address: [place], [place] [facility] MANAGED MEDICARE ADV
--- OUTSIDE RECORDS SUMMARY | 2024-11-01 00:58 | XMS_ITS | Clinical Summary ---
Author Organization [facility] Address [facility] [place] [address] Care Team Providers Care Acid Bleacher Name Role Phone Jimmy Doyle Primary Care Provide r Derrell Varma MD Unavailable [phone] Allergies Active Allergy Reactions Criticality Noted Date [...] on file Legal Sex Female 12:04 PM ELECTRONIC ORGAN TECHNICIAN Gender Identity Not on file Sexual [...] Zoster Vaccine Completed 04/06/2021, 01/27/2021 Insurance IDPA [facility] MEDICARE [facility] Address: [address] [address] [place] [address] IDPA [facility] MEDICARE ADVANTAGE [facility] MEDICARE ADVANTAGE [facility] Advance Directives For more information, please contact: [phone] * Full Code (Latest Code Status on File) Date Activated Date Inactivated Comments 02/09/2022 9:51 PM 02/12/2022 5:52 PM Care Teams Acid Bleacher Relationship Specialty Start Date End Date Jimmy Doyle DO [address] [place] [id number] PCP - General Family Medicine 02/12/22 Derrell Varma MD [address] [place] [address] Surgeon Surgery 02/12/22
--- OUTSIDE RECORDS SUMMARY | 2024-11-01 00:58 | XMS_ITS | Encounter Summary ---
Author Organization [facility] Address [facility] [place] [address] Care Team Providers Care Rod Mill Tender Name Role Phone New Referring, Provider Primary Care Provider Un available Jimmy Doyle DO Primary Care Provider + Encounter Details Date Type Department Care Team (Latest Contact Info) Description 12/12/2017 Abstract [facility] , Farhana Aguilera MD Social History Tobacco Use Types Packs/Day Years Used Date Smoking Tobacco: Never Assessed Comments Unknown Sex and Gender Information Value Date Recorded Sex Assigned at Female 05/03/2024 9:57 AM DEPUTY SHERIFF LIEUTENANT Legal Sex Female 4:45 PM CDT Gender Identity Female 05/03/2024 9:57 AM DEPUTY SHERIFF LIEUTENANT Sexual Orientation Not on file documented as of this encounter Plan of Treatment Upcoming Encounters Date Type Department Care Team (Late st Contact Info) Description 11/05/2024 10:20 AM CDT Office Visit [facility] Family & Internal Medicine - [address] [phone] Jimmy Doyle DO [address] [place] [place] [phone] 03/22/2025 11:45 AM DEPUTY SHERIFF LIEUTENANT Office Visit [facility] [phone] Abhi Aguilar MD [address] [place] [phone] documented as of this encounter Visit Diagnoses Not on filedocumented in this encounter Additional Health Concerns Infection Onset Date Last Indicated Resolved Time COVID-19 Rule Out 01/13/2022 01/13/2022 01/13/2022 9:32 AM CDT COVID-19 Rule Out 01/13/2022 01/13/2022 01/13/2022 9:59 AM CDT COVID-19 Rule Out 01/27/2023 01/27/2023 01/27/2023 11:28 AM CDT documented as of this encounter Care Teams Rod Mill Tender Relationship Specialty Start Date End Date New Referring, Provider PCP - General UNKNOWN PHYSICIAN SPECIALTY 01/25/18 08/18/20 Jimmy Doyle DO [address] [place] [id number] PCP - General FAMILY PRACTICE 08/19/20 documented as of this encounter
--- OUTSIDE RECORDS SUMMARY | 2024-11-01 00:58 | XMS_ITS | Encounter Summary ---
Author Organization [facility] Address [facility] [place] [address] Care Team Providers Care Fishing Gear Mechanic Name Role Phone Jimmy Doyle Primary Care Provider + Encounter Details Date Type Department Care Team (Late st Contact Info) Description 01/11/2022 Abstract [facility] [address] Doni Moore MA Social History Tobacco Use Types Packs/Day Years Used Date Smoking Tobacco: Every Day Cigarettes 1 55.2 Started: 08/19/1969 Smokeless Tobacco: Never Comments:trying to quit. 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 personnel counselor Alcohol Use Standard Drinks/Week Comments Never [...] Sex Assigned at Female 05/03/2024 9:57 AM BOAT OUTBOARD ENGINE MECHANIC Legal Sex Female 4:45 PM CDT Gender Identity Female 05/03/2024 9:57 AM BOAT OUTBOARD ENGINE MECHANIC Sexual Orientation Not on file COVID-19 [...] Description 11/05/2024 10:20 AM CDT Office Visit [facility] Family & Internal Medicine - [address] [phone] Jimmy Doyle DO [address] [place] [address] 03/22/2025 11:45 AM BOAT OUTBOARD ENGINE MECHANIC Office Visit [facility] [phone] Abhi Aguilar MD [address] [place] [phone] documented as of this encounter Goals Goal Patient Goal Type Associated Problems Recent Progress Patient-Stated? Author Patient will return to prior living situation and remain independent in ADLs upon discharge from [facility] Daysi Nayak RN documented as [...] Total Score: 8 05/13/19 22 10:36 AM BOAT OUTBOARD ENGINE MECHANIC documented as of this encounter Care Teams Fishing Gear Mechanic Relationship Specialty Start Date End Date Jimmy Doyle DO [address] [place] [id number] PCP - General FAMILY PRACTICE 08/19/20 documented as of this encounter
--- OUTSIDE RECORDS SUMMARY | 2024-11-01 00:58 | XMS_ITS | Encounter Summary ---
Author Organization [facility] Address [facility] [place] [address] Care Team Providers Care Franchise Development Manager Name Role Phone Jimmy Doyle DO Primary Care Provider + Encounter Details Date Type Department Care Team (Late st Contact Info) Description 06/23/2022 Prep for Procedure [facility], [facility] [address] [place], [place] [id number] Flaquito Valera MD Three [facility]. [facility] [address] [place], [place] [id number] Social History Tobacco Use Types Packs/Day Years Used Date Smoking Tobacco: Every Day Cigarettes 1 55.2 Started: 08/19/1969 Smokeless Tobacco: Never Comments:trying to quit. 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 correctional substance abuse counselor Alcohol Use Standard Drinks/Week [...] Sex Assigned at Female 05/03/2024 9:57 AM MORTARMAN Legal Sex Female 4:45 PM CDT Gender Identity Female 05/03/2024 9:57 AM MORTARMAN Sexual Orientation Not on file COVID-19 Exposure Response Date Recorded In the last 10 days, have yo u been in contact with someone who was confirmed or suspected to have Coronavirus/COVID-19? No / Unsure 06/24/2022 12:41 PM MORTARMAN documented as of this encounter Functional Status [...] things Not at all 06/24/2022 1:19 PM MORTARMAN Adia Mckenna MA Active Feeling down, depressed, or hopeless Nearly every day 06/24/2022 1:19 PM MORTARMAN Adia Mckenna MA Active Patient Health Questionnaire-2 Score 3 06/24/2022 1:19 PM MORTARMAN Adia Mckenna MA Active documented as of [...] Description 11/05/2024 10:20 AM CDT Office Visit [facility] Family & Internal Medicine [address] [phone] Jimmy Doyle DO [address] [place] [address] 03/22/2025 11:45 AM MORTARMAN Office Visit [facility] [address] [place] [phone] Abhi Aguilar MD 3 [facility] [address] [place] [phone] documented as of this encounter Goals Goal [...] Total Score: 8 05/13/19 22 10:36 AM MORTARMAN documented as of this encounter Care Teams Franchise Development Manager Relationship Specialty Start Date End Date Jimmy Doyle DO [address] [place] [address] PCP - General FAMILY PRACTICE 08/19/20 documented as of this encounter
--- OUTSIDE RECORDS SUMMARY | 2024-11-01 00:58 | XMS_ITS | Encounter Summary ---
Author Organization [facility] Address [facility] [place] [address] Care Team Providers Care Newsstand Vendor Name Role Phone Jimmy Doyle Primary Care Provider + Reason for Visit * Reason Comments Procedure (SCAN) Encounter Details Date Type Department Care Team ([facility] Contact Info) Description 10/25/2024 Scan HEALTH INFO [facility] Scanned, Doc Med Group Procedure (SCAN) Social History Tobacco Use Types Packs/Day Years Used Date Smoking Tobacco: Every Day Cigarettes 1 55.2 Started: 08/19/1969 Smokeless Tobacco: Never Comments:trying to quit. 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 Legal Sex Female 4:45 PM CDT Gender Identity Female 05/03/2024 9:57 AM PRINT LINE FEEDER Sexual Orientation Not on file documented as [...] Description 11/05/2024 10:20 AM CDT Office Visit [facility] Family & Internal Medicine - [address] [phone] Jimmy Doyle DO [address] [place] [address] 03/22/2025 11:45 AM PRINT LINE FEEDER Office Visit [facility] [phone] Abhi Aguilar MD [address] [place] [address] [place] [phone] documented as of this encounter Goals Goal Patient Goal Type Associated Problems Recent Progress Patient-Stated? Author Patient will return to prior living situation and remain independent in ADLs upon discharge from [facility] General Daysi Nayak RN documented as of this encounter Procedures Procedure Name Priority Date/Time Associated Diagnosis Comments PROCEDURE GENERIC (SCAN ORDER) 10/25/2024 documented in this encounter Results * PROCEDURE GENERIC (SCAN ORDER) (10/25/2024) 10/25/2024 us Doc Med [facility] Scanned SCANNING Final Resu lt documented in this encounter Visit Diagnoses Not on filedocumented in this encounter Additional Health Concerns Assessment Noted Time PHQ-9 Depression Total Score: 10 025 9:55 AM PRINT LINE FEEDER documented as of this encounter Care Teams Newsstand Vendor Relationship Specialty Start Date End Date Jimmy Doyle DO [address] [place] [id number] PCP - General FAMILY PRACTICE 08/19/20 documented as of this encounter
--- OUTSIDE RECORDS SUMMARY | 2024-11-01 00:58 | XMS_ITS | Patient Health Record ---
Author Organization [facility] Address [address] [place] [address] Care Team Providers Care Retail Sales Merchandiser Development Name Role Phone Sulaiman Bermudez Unavailable [phone] Reason For Referral No Information Medications Medication SIG (Take, Route, Frequency, Duration) Notes Start Date End Date Status Atorvastatin Calcium 40 MG Oral Active Ondansetron HCl 4 MG Oral Active Venlafaxine HCl ER 225 MG Oral Active oxyBUTYnin Chloride ER 10 MG Oral Active Nitroglycerin 0.4 MG Sublingual Active SEROquel XR 50 MG Oral Ac tive Azithromycin 250 MG Oral Active HYDROcodone-Acetaminophen 10-325 MG Oral Active SEROquel XR 150 MG Oral A ctive Venlafaxine HCl ER 150 MG Oral Active Haloperidol 2 mg Oral Act chichi methylPREDNISolone 4 MG Oral Active ALPRAZolam 0.5 MG Oral Ac tive Cholecalciferol 1.25 MG (52543 UT) Oral Active Ofloxacin 0.30% Otic Acti ve Doxycycline Hyclate 100 MG Oral Active ALPRAZolam 1 MG Oral Acti ve Cefdinir 300 MG Oral Acti ve Latuda 40 MG Oral Active Isosorbide Mononitrate ER 120 mg Oral Active Vraylar 1.5 & 3 MG Oral A ctive Wellbutrin SR 150 MG Oral Active Lovastatin 20 MG Oral Act chichi ICOSAPENT ETHYL 1 GRAM CAPSULE *Reorder from [employer] for eRx and Interaction Alerts* Active MiraLax 17 gram Oral *Pick strength-form from [employer] for eRX* Active QUEtiapine Fumarate 300 MG Oral Active Isosorbide Mononitrate ER 30 MG Oral Active RANOLAZINE ER 500 MG TABLET,EXTENDED RELEASE,12 HR *Reorder from [employer] for eRx and Interaction Alerts* Active Latuda 20 MG Oral Active Potassium Chloride Sisi ER 10 MEQ Oral Active HYDROcodone-Acetaminophen 7.5-325 MG Oral Active QUEtiapine Fumarate 50 MG Oral Active hydroCHLOROthiazide 25 MG Oral Active ERGOCALCIFEROL (VITAMIN D2) 50 MCG (2,000 UNIT) TABLET *Reorder from [employer] for eRx and Interaction Alerts* Active Carvedilol 12.5 MG Oral A ctive Vascepa 1 GM Oral Active Famotidine 40 MG Oral Act chichi Venlafaxine HCl ER 75 MG Oral Active Plan Of Treatment No Information Insurance Providers Payer Name Payer Address Payer Phone Subscriber Number Group Number Insured Name Patient Relationship to Insured Coverage Start Date Coverage End Date [employer] Medicare Replacement/ Advantage - Ppo [address] [address] [place] [address] [id number] DANNY VARGAS Self - patient is the insured
--- OUTSIDE RECORDS SUMMARY | 2024-11-01 00:58 | XMS_ITS | Referral Summary ---
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 Gender Identity Not on file Sexual [...] of Treatment Not on file Insurance IDPA [facility] MEDICARE ADVANTAGE HIPA [facility] MEDICARE ADVANTAGE [facility] MEDICARE [facility] Address: [address] [address] [place] [address] IDPA Advance Directives For more information, please contact: [phone] * Full Code (Latest Code Status on File) Date Activated Date Inactivated Comments 02/09/2022 9:51 PM 02/12/2022 5:52 PM Care Teams Extrusion Press Adjuster Relationship Specialty Start Date End Date Jimmy Doyle DO [address] [place] [address] PCP - General Family Medicine 02/12/22 Derrell Varma MD [address] [facility] [address] [place] [address] Surgeon Surgery 02/12/22
--- OUTSIDE RECORDS SUMMARY | 2024-11-01 00:59 | XMS_ITS | Data Portability ---
Author Organization [place] [facility] OFFICE Address [address] [place] [address] Care Team Providers Care Tobacco Packing Machine Operator Name Role Phone JESUS MACEDO Primary Care [...] By Organization Details Last Modified Time 04/30/2020 56838 Exercise advised Low cholesterol diet advised Low sodium diet advised [email or web address] Not available 04/30/2020 16:38:42 Scribed by Kamila Michele [facility] [email or web address] Not available 04/30/2020 16:38:44 Reason for [...] bibasiller atelectasis or infection,clinical correlation. Efra Whitman [facility] 05/03/2020 10:01:32 D-dimer Feu, Qn, Ia, Blood : D-dimer 04/01/20:0.37 Efra Whitman [facility] 05/03/2020 09:54:26 Cbc W/ Diff : 04/01/20:WBC 7.6,RBC 4.68,HGB 14.8,HCT 41.8,PLT 251. Efra Whitman [facility] 05/03/2020 09:50:44 Cmp, Serum Or Plasma : 04/02/20:Na 139,K 3.4,Cl 102,CO2 32,GLU 99,BUN 11,Cr 0.6,Mg 2.1 Efra Whitman [facility] 05/03/2020 09:54:26 Lipid Panel, Blood : 04/02/20: TC 167,TG 220,LDL 107,HDL 30. Efra Whitman [facility] 05/03/2020 09:54:26 Problems Name Problem SNOMED Code Status Onset Date Resolution Date Notes Provider Name and Address Organization Details Recorded Time Essential hypertension 59940502 Active 2020 [facility] 15:22:30 Cerebrovascula r accident 377086866 Active 2020 [facility] 15:22:39 Hypercholester olemia 60863142 Active 2020 [facility] 15:22:56 Depressive disorder 37174284 Active 2020 [facility] 15:23:04 Problem Notes None recorded. Procedures Surgical History Date Name Laterality Status Provider Name and Address Organization Details Recorded Time Hysterectomy completed [facility] 04/30/2020 15:24:35 Cholecystectomy completed [facility] 04/30/2020 15:24:43 Imaging Results None recorded. Procedure Notes None recorded. Medical Equipment None Reported. Allergies Allergen ID Allergen Name Allergen Category Reaction Reaction Severity Criticality Documentation Date Start Date Code Code System Note Provider Name and Address Organization Details Recorded Time 68375 sulfobrom ophthalei n sodium medicatio n Not available Not available Not available 04/30/2020 98655 0 RxNorm Renae Edwin [facility], [facility] 15:21:51 28307 tetracycl ine medicatio n Not available Not available Not available 04/30/2020 29144 RxNorm Renae Edwin [facility], [place] [facility] 15:22:03 Medications Name Sig Start [...] Last Updated DateTime 165.1 cm 28.3 kg/m2 18038.7 g 84 /min 18 /min 94 % 94 % 97.2 [degF] 170/100 mm[Hg] Renae Guillenmaren [facility] 15:31:15 Social History Question Answer Notes LastModified by Organizat ion Details LastModified Time Tobacco Smoking Status Current Every Day Smoker Renae Pineda kyle [facility] 04/30/2020 15:23:42 Do You Have An Advance Directive? [place] [address] Information not available 04/30/2020 What Is Your Level Of Caffeine Consumption? None [place] [address] Information not available 04/30/2020 How Much Tobacco Do You Chew? None [place] [address] Information not available 04/30/2020 What Type Of Diet Are You Following? REGULAR [place] [address] Information not available 04/30/2020 Which Illicit Or Recreational Drugs Have You Used? No [facility] Information not available 04/30/2020 Live Alone Or With Others? With Others [place] [address] Information not available 04/30/2020 Marital Status Single [place] [address] Informatio n not available 04/30/2020 How Many Children Do You Have? 1 [place] [address] Information not available 04/30/2020 How Much Tobacco [...] SNOMED-CT Code Diagnosis ICD10 Code Diagnosis Note 11092 MD Izzy Naqvi Office [address] [facility] [address] [place] [phone] 04/30/2020 14:29:44 04/30/2020 15:51:37 Atypical chest pain 774978644 R07.89 Treadmill Myoview Stress test, has high [place] Risk score. Has Known CAD, or CAD risk equivalent . To look for any ischemia. 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 Cessation highly advised Essential hypertension 49538083 I10 Hyperlipidemia 15096069 E78.5 Needs to keep LDL less than 100, and HDL more than 40.Current ly not on statin therapyWil l get fasting lipids for follow-up Peripheral vascular disease 380884496 I73.9 Will get arterial doppler, to evaluate severity of peripheral vascular disease Health Concerns Section Related Observation LastModified by Organization Detai ls LastModified Time None Recorded Concern Status LastModified by Organization Details LastModified Time None Recorded Advance Directives Directive N: Payers Insurance Date Sequence Insurance Name Policy Number Policy Brown Covered Member ID Brown Member ID Guarantor Name 04/27/2020 2 [place] [facility] Jeniffer Weller [id number] Jeniffer Weller 04/27/2020 1 [place] Jeniffer Weller [id number] Jeniffer Weller Notes Date Note Type Note Provider Name and Address Organization Details Recorded Time 04/30/2020 text/html 04/30/2020 CC: chest pain Patient is a 64-year-old female with a past medical history of HLD, HTN, COPD, and CKD who is seen in cardiac consultation with a chief complaint of chest pain and hospital follow-up. She was admitted to [facility] on 04/01/2020 with chest pain. Her [...] She denies ETOH abuse. Merrick Lin MD [address] [place], [address], [facility] 04/30/2020 16:39:25 OBGyn Episode No OBEpisode recorded.
--- NOTE | 2024-11-01 05:03 | WPDHPUPDATE1 ---
History and Physical Update Update Date/Time: 11/01/24 05:03 History and Physical has been reviewed, including an updated exam of the patient. There are NO changes in the patient's condition. Risks, benefits, and alternatives have been discussed and questions answered. Patient agrees to proceed with procedure.
[2024-11-01] MEDS: LACTATED RINGERS 1,000 ML 30 ML IV CONT (10:19)
--- NOTE | 2024-11-01 11:43 | WPDANESEPPF ---
Anes - Initial Pre Proc Eval Procedure: Operation Date: 11/01/24 11:30 Proposed Procedures p Cystoscopy, Right Retrograde Pyelogram, Right Ureteroscopy, Jelmyto Instillation - Tacos Bowers MD Date/Time: 11/01/24 11:43 Surgeon: Tacos Bowers MD Pre Op Diagnosis: right urothelial CA Patient Data Age: 68 Gender: F Height: 1.66 m Weight: 62.4 kg Last Vital Signs Temp 36.4 C 11/01/24 10:22 Pulse 77 11/01/24 10:22 Resp 16 11/01/24 10:22 BP 120/62 11/01/24 10:22 Pulse Ox 96 11/01/24 10:22 O2 Del Method Room Air 11/01/24 10:22 Allergies Allergy/AdvReac Type Severity Reaction Status Date / Time Penicillins Allergy Unknown Rash Verified 11/01/24 10:19 Sulfa (Sulfonamide Allergy Unknown Hives Verified 11/01/24 10:19 Antibiotics) sulfanilamide Allergy Unknown Hives Verified 11/01/24 10:19 ciprofloxacin AdvReac Intermediate Shakiness Verified 11/01/24 10:19 amitriptyline (From Elavil) AdvReac Unknown Confusion Verified 11/01/24 10:19 codeine AdvReac Unknown N/V Verified 11/01/24 10:19 tetracycline AdvReac Unknown Nausea Verified 11/01/24 10:19 doxycycline AdvReac Nausea and Verified 11/01/24 10:19 Vomiting Home Medications ?Medication ?Instructions ?Recorded ?Confirmed ?Type aspirin 81 mg tablet,delayed 81 mg PO DAILY 04/05/19 10/25/24 History release (Aspir-) hydrochlorothiazide 25 mg tablet 25 mg PO DAILY #90 tabs 08/27/20 10/25/24 Rx atorvastatin 40 mg tablet (Lipitor) 40 mg PO HS 01/10/21 10/25/24 History isosorbide mononitrate 30 mg 90 mg PO QACLUNCH 01/10/21 10/25/24 History tablet,extended release 24 hr nitroglycerin 0.4 mg sublingual 0.4 mg sublingual PRN CHEST PAIN 01/10/21 09/20/24 History tablet potassium chloride 10 mEq 10 meq PO DAILY 01/10/21 10/25/24 History tablet,extended release (K-Tab) venlafaxine 150 mg See Rx Instructions .Route .COMPLEX 03/02/22 10/25/24 History capsule,extended release 24 hr (Effexor XR) ranolazine 500 mg tablet,extended 500 mg PO Q12HR 30 days #60 tabs 03/04/22 10/25/24 Rx release,12 hr (Ranexa) cholecalciferol (vitamin D3) 125 125 mcg PO DAILY 11/12/22 10/25/24 History mcg (5,000 unit) tablet (Vitamin D3) hydrocodone 10 mg-acetaminophen 1 tablet PO PRN PRN pain 06/18/24 10/18/24 History 325 mg tablet oxybutynin chloride 10 mg 10 mg PO HS 06/18/24 10/25/24 History tablet,extended release 24 hr alprazolam 0.5 mg tablet 0.5 mg PO TID PRN anxiety 07/30/24 10/25/24 History carvedilol 12.5 mg tablet 12.5 mg PO BID 07/30/24 10/25/24 History ondansetron 4 mg disintegrating 4 mg PO Q6H PRN nausea and 08/14/24 09/20/24 Rx tablet vomiting #10 tabs icosapent ethyl 1 gram capsule 2 g PO BID 09/12/24 10/25/24 History quetiapine 300 mg tablet (Seroquel) 300 mg PO HS 09/12/24 10/25/24 History tolterodine 2 mg tablet 2 mg PO Q12H 09/12/24 10/25/24 History ondansetron 4 mg disintegrating 4 mg PO Q8H PRN nausea and 10/18/24 Rx tablet vomiting #20 tabs Patient hx anesthesia problems: none Family hx anesthesia problems: none Results Review: All pre-operative results and documents have been reviewed as part of the pre-operative evaluation. [facility] Past Medical History Medical History Chronic, continuous use of opioids Bipolar disorder, unspecified CAD (coronary artery disease) Hypertension Emphysema lung Screening for colon cancer Screening for breast cancer Postmenopausal Hx of pancreatitis Depression Kidney stones Kidney disease Urinary frequency High cholesterol Pneumonia Vision abnormalities Weight gain Cholecystectomy planned Anxiety Surgical History Surgical History H/O excision of mass 11/22/22 Excision of 5 cm perianal cyst History of cholecystectomy Hx of tonsillectomy History of partial hysterectomy H/O colonoscopy History of esophagogastroduodenoscopy (EGD) History of laryngoscopy Family History Family History Sibling Patient's brother is in good health Dementia Mother Family history of coronary artery disease Acute myocardial infarction Father Patient's father is Acute myocardial infarction Cerebrovascular accident Unknown Heart disease Cerebrovascular accident Other Family history of mental disorder Social History Social History Smoking packs per day: 1 Smoking cigarettes per day: 20.0 Years smoked: 52 Smoking pack-years: 52.00 Smoking status: Current every day smoker Tobacco type: cigarettes Second hand tobacco smoke exposure: No Alcohol intake: never Substance use: current Substance use type: marijuana Other substance usage details: Daily Last use: 09/12/24 Lack of Transportation: No Lack of Food: Never True Current Housing: I Have Housing Concerned About Future Housing: No Difficulty Paying Gas/Electric Bills: No Difficulty Paying for Meds: No Currently Unemployed: No Education: Decline to Answer Difficulty w/ Childcare or Family Care: No Living arrangements: alone Spiritual care concerns: No Anes - Eval Final PreProcedure Day of Procedure 11/01/24 11:43 Patient weight: normal Heart: regular rate and rhythm Lungs: clear to auscultation Airway: Mallampati scale class II Neurological: alert and oriented Last oral intake: >/= 8 hours ASA classification: III Emergent: no Anesthetic plan: proceed Anesthesia type and monitoring: general LMA and standard monitoring Results Review: All pre-operative results and documents have been reviewed as part of the pre-operative evaluation. Informed Consent: The patient's anesthetic plan and its attendant risks and benefits were discussed with the patient/family/POA. Questions were solicited and answers provided to the satisfaction of the patient/family/POA.
[2024-11-01] MEDS: MITOMYCIN 36 MG URETHRAL (12:58)
--- NOTE | 2024-11-01 13:08 | W.PM.PROC2 ---
Procedure Note - Detailed Date of Procedure 11/01/24 Pre-op Diagnosis Right upper tra t urothelial CA Post-op Diagnosis Same Procedure Performed Cystoscopy, right retrograde pyelogram, right Jelmyto insitillation Surgeon Tacos Bowers MD Anesthesia General Description of Procedure Patient is brought to the operative suite where she was prepped and draped in routine sterile fashion while in dorsal lithotomy position after the uneventful induction of a general LMA anesthetic. A 19F rigid cystoscope was placed in the bladder. The bladder was carefully inspected. Mucosa is normal without hyperemia. There was no intravesical neoplasm. A 0.035 in glidewire was advanced in the right renal pelvis and a ureteral catheter was advanced over the guidewire. The retrograde pyelogram was obtained to ensure appropriate positioning of the ureteral catheter in the collecting system. Prior retrograde pyelography had determined a renal pelvic volume of 9cc. We opted to use that prior volume determination for today's instillation. After appropriate reconstitution of the Jelmyto in ice retrograde injection was undertaken through the same ureteral catheter positioned at the UPJ. A total of 9mL (36 mg) of Jelmyto was instilled in the renal pelvis without incident. The volume of Jelmyto wasted was 11 mL (44 mg). the ureteral catheter was allowed to stand for 60 seconds and then removed with ease. Because the patient has no history of ureteral stricture I opted not to place a ureteral stent. Patient tolerated the procedure well was taken to the recovery room in good condition. Drains No
--- NOTE | 2024-11-01 14:37 | SUR.PHASEII ---
Patient stable for d/c. VSS. IV d/c. Patient waiting for ride
== END 2024-11-01 14:50 | disposition home or self-care (01) ==
PROVIDERS: PCP Student in an Organized Health Care Education/Training Program; Visit Provider Urology
PROC: (CPT 52352; principal; 2024-11-01 11:30)
DX: C65.1 Malignant neoplasm of right renal pelvis (principal); C66.1 Malignant neoplasm of right ureter; F17.210 Nicotine dependence, cigarettes, uncomplicated; F12.90 Cannabis use, unspecified, uncomplicated
CPT/HCPCS: C9789; 74420; J0690; C1758; C1769; J2003; J2250; J2405; J2704; J3010; J7120; J9281; Q9966

== ENCOUNTER 2024-11-17 12:53 | Outpatient (CLI) | payer MEDICARE, MEDICAID, SELFPAY ==
--- NOTE | ~2024-11-17 | CT_ITS ---
CT Scan of the Chest without Contrast: Clinical Indication: Lung cancer screening, nicotine dependence Technique: Contiguous sections were acquired throughout the chest without intravenous contrast. Dose reduction technique was used on this scan by utilizing automated exposure control and iterative recon struction technique. The dose-length product (DLP) was 70.86 mGy-cm. COMPARISON: 04/25/2023 Findings: There is no evidence of any significant mediastinal, hilar or axillary lymphadenopathy. The mediastin al soft tissues appear normal. There is no evidence of pleural or pericardial effusion. The lungs are clear. No pulmonary nodules or infiltrates are noted. There is mild emphysema and mild chronic interstitial change. Images through the upper abdomen reveal no abnormalities. Impression: Lung RADS 1: Negative. 12 month follow-up screening CT advised. Reviewed, dictated and finalized at [facility]. Impression: Lung RADS 1: Negative. 12 month follow-up screening CT advised.
--- OUTSIDE RECORDS SUMMARY | 2024-11-17 12:58 | XMS_ITS | Clinical Summary ---
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 Gender Identity Not on file Sexual [...] 2023 01/30/2021, 07/21/2020, 06/30/2020 Influenza Vaccine (#1) 2024 , 12/25/2020, 01/07/2020, Additional history exists Pneumococcal vaccine 65+ (3 of 3 - PCV20 or PCV21) 01/11/2025 01/12/2020, 05/14/2007 Zoster Vaccine Completed 04/06/2021, 01/27/2021 Insurance IDPA [facility] MEDICARE ADVANTAGE [facility] Address: [address] [address] [place] [address] IDPA [facility] MEDICARE ADVANTAGE [facility] MEDICARE ADVANTAGE [facility] Advance Directives For more information, please contact: [phone] * Full Code (Latest Code Status on File) Date Activated Date Inactivated Comments 02/09/2022 9:51 PM 02/12/2022 5:52 PM Care Teams Design Analyst Relationship Specialty Start Date End Date Jimmy Doyle DO [address] [place] [address] [id number] PCP - General Family Medicine 02/12/22 Derrell Varma MD [address] [facility] [address] [place] [address] Surgeon Surgery 02/12/22
--- OUTSIDE RECORDS SUMMARY | 2024-11-17 12:58 | XMS_ITS | Continuity of Care Document ---
Author Organization [facility] Address [address] [place] [address] [address] [place] [address] Phone Care Team Providers Care Mail Inserter Name Role Phone Idris PT, DPT, Ave Unavailable Unavailable Procedures Procedure Date Therapeutic Exercise Neuromuscular Re-Ed Therapeutic Activities Hot or Cold Pack PT Evaluation Low Complexity Neuromuscular Re-Ed Therapeutic Activities Advance Directives Directive Yes / No Effective Date File Name No Information Encounters Encounter Description Practice Location Reason(s) For Visit Diagnoses Date Provider Providers Copied on Encounter [facility] [address], [id number], tel:[phone] [place] No Information Sep-0 1 Idris Dorado. . [facility] [address] [place] [address], [id number], tel:[phone] [place] No Information Sep-0 1 Idris Dorado. . Referring Provider: Jimmy Doyle , [address] [place] [address], [id number]. tel:[phone], [id number], tel:[phone] [place] No Information 0- 1 Idris Dorado. . Referring Provider: Jimmy Doyle , [address] [place] [address], [id number]. tel:[phone] Family History Family Member Type Diagnosis Age At Onset No Information Payers Payer name Insurance type Covered green party ID Authorcesiliapauline jamietristian(s) Medicare [place] [id number] Medicaid OON Write Off CI 00 Social [...]
--- OUTSIDE RECORDS SUMMARY | 2024-11-17 12:58 | XMS_ITS | Encounter Summary ---
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 Legal Sex Female 4:45 PM CDT Gender Identity Female 05/03/2024 9:57 AM FRUIT AND VEGETABLE PARER Sexual Orientation Not on file documented as of this encounter Plan of Treatment Upcoming Encounters Date Type Department Care Team (Late st Contact Info) Description 02/05/2025 12:40 PM CDT Office Visit [facility] Family & Internal Medicine [facility] [address] [place] [address] Jimmy Doyle DO [address] [place] [address] 02/05/2025 1:20 PM CDT Office Visit [facility] Family & Internal Medicine [facility] [address] [place] [address] Jimmy Doyle DO [address] [place] [address] 03/22/2025 11:45 AM FRUIT AND VEGETABLE PARER Office Visit [facility] [phone] Abhi Aguilar MD [address] [place] [address] [address] [place] [phone] documented as of this encounter Visit Diagnoses Not on filedocumented in this encounter Additional Health Concerns Infection Onset Date Last Indicated Resolved Time COVID-19 Rule Out 01/13/2022 01/13/2022 01/13/2022 9:32 AM CDT COVID-19 Rule Out 01/13/2022 01/13/2022 01/13/2022 9:59 AM CDT COVID-19 Rule Out 01/27/2023 01/27/2023 01/27/2023 11:28 AM CDT documented as of this encounter Care Teams Lithographic Etcher Relationship Specialty Start Date End Date New Referring, Provider PCP - General UNKNOWN PHYSICIAN SPECIALTY 01/25/18 08/18/20 Jimmy Doyle DO [address] [place] [id number] PCP - General FAMILY PRACTICE 08/19/20 documented as of this encounter
--- OUTSIDE RECORDS SUMMARY | 2024-11-17 12:58 | XMS_ITS | Clinical Summary ---
Author Organization [facility] Address [address] [place] [address] Care Team Providers Care Neonatal Specialist Name Role Phone Unavailable Primary Care Provider Unavailabl e Source Comments [facility],non-owned Affiliates and Associated Physician Practices is amultiple site organization consisting of ambulatory clinics and hospital sitesin [place], [place], [place] and [place]. This disclosure is being madepursuant to the Care Everywhere program and may not contain all information available regarding this patient. 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 Gender Identity Not on file Sexual Orientation [...] patient's age to complete this topic Insurance [facility] MANAGED MEDICARE [facility] MEDICAID - [place] SELF PAY NO INSURANCE Member Subscriber Plan / Payer (Ef fective for All Dates) Name:Jeniffer Vargas Member ID:Not on file Relation to Subscriber:Not on file Name:JENIFFER VARGAS Subscriber ID:Not on file (Home) Address: [address] [place] [id number] Payer ID:Not on file Group ID:Not on file Type:Self Pay Address: [place], [place] [facility] MANAGED MEDICARE ADV
--- OUTSIDE RECORDS SUMMARY | 2024-11-17 12:58 | XMS_ITS | Encounter Summary ---
Author Organization [facility] Address [facility] [place] [address] Care Team Providers Care Director Professional Services Name Role Phone Jimmy Doyle DO Primary Care Provider + Reason for Referral * Imaging (Routine) - Closed Specialty Diagnoses / Procedures Referred By Contmahogany t Referred To Contact RADIOLOGY Diagnoses Current smoker Cigarette nicotine dependence with other nicotine-induced disorder Tobacco abuse Procedures CT LUNG SCREENING Jimmy Doyle DO [address] [place] [address] Phone: tel: fax: [address] [address] Phone: tel: fax: Referral ID Status Reason Start Date Expiration Date Visits Re quested Visits Authorized [id number] Closed 11/05/2024 11/06/2025 1 1 Reason for Visit * Reason Onset Date Comments Question 11/05/2024 Encounter Details Date Type Department Care Team (Late st Contact Info) Description 11/05/2024 Telephone [facility] Family & Internal Medicine [facility] [address] [place] [address] Jimmy Doyle DO [address] [place] [address] Question Social History Tobacco Use Types Packs/Day Years Used Date Smoking Tobacco: Every Day Cigarettes 1 55.2 Started: [birth year]/19/1967 Smokeless Tobacco: Never Comments:trying to quit. 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 Answer Entry Date Author Status No 09/21/2020 1:00 PM Meryl Boggs RN Active documented in this encounter Progress Notes * Adia Mckenna MA - 11/05/2024 12:19 PM CDT Spoke with patient and she states she has only had [facility] at [facility] this [facility]. The patient does not recall having this test completed. Called [facility] and they do not have record of this test. Will order for [facility] as advised by pcp. Pt made aware of orders for [facility] and agrees * Jimmy Doyle DO - 11/05/2024 11:34 AM CDT Please inquire with pt if she has had LDCT chest this year or any other CT of chest this year. She may not know, but if she hasn't we need to order a LDCT chest. Please check with [facility] as well. If there has not been one, okay to place for [facility]. documented in this encounter Plan of Treatment Upcoming Encounters Date Type Department Care Team (Late st Contact Info) Description 02/05/2025 12:40 PM CDT Office Visit [facility] Family & Internal Medicine - [address] [phone] Jimmy Doyle DO [address] [place] [address] 02/05/2025 1:20 PM CDT Office Visit [facility] Family & Internal Medicine - [address] [phone] Jimmy Doyle DO [address] [place] [address] 03/22/2025 11:45 AM AIRPLANE PILOT HELPER Office Visit [facility]-[address] [phone] Abhi Aguilar MD [address] [facility] [address] [place] [phone] Scheduled Orders Name Type Priority Associated Diagnoses Orde r Schedule CT LUNG SCREENING CT Routine Current smoker Cigarette nicotine dependence with other nicotine-induced disorder Tobacco abuse Expected: 11/05/2024, Expires: 11/05/2025 documented as of this encounter Goals Goal Patient Goal Type Associated Problems Recent Progress Patient-Stated? Author Patient will return to prior living situation and remain independent in ADLs upon discharge from hospital General Daysi Nayak RN documented as of this encounter Visit Diagnoses Diagnosis Current smoker- Primary Tobacco use disorder Cigarette nicotine dependence with other nicotine-induced disorder Tobacco abuse Tobacco use disorder documented in this encounter Additional Health Concerns Assessment Noted Time PHQ-9 Depression Total Score: 10 025 9:55 AM AIRPLANE PILOT HELPER documented as of this encounter Care Teams Director Professional Services Relationship Specialty Start Date End Date Jimmy Doyle DO [address] [place] [address] PCP - General FAMILY PRACTICE 08/19/20 documented as of this encounter
--- OUTSIDE RECORDS SUMMARY | 2024-11-17 12:58 | XMS_ITS | Referral Summary ---
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 Gender Identity Not on file Sexual Orientation [...] of Treatment Not on file Insurance IDPA [facility] MEDICARE [place]ANTAGE [place] [facility] MEDICARE ADVANTAGE [facility] MEDICARE [facility] Address: [address] [address] [place] [address] IDPA Advance Directives For more information, please contact: [phone] * Full Code (Latest Code Status on File) Date Activated Date Inactivated Comments 02/09/2022 9:51 PM 02/12/2022 5:52 PM Care Teams Car Builder Relationship Specialty Start Date End Date Jimmy Doyle DO [address] [place] [address] PCP - General Family Medicine 02/12/22 Derrell Varma MD [address] [facility] [address] [place] [address] Surgeon Surgery 02/12/22
--- OUTSIDE RECORDS SUMMARY | 2024-11-17 12:58 | XMS_ITS | Encounter Summary ---
Author Organization [facility] Address [address] [facility] [place] [address] Care Team Providers Care Social Economist Name Role Phone Unavailable Primary Care Provider Unavailabl e Encounter Details Date Type Department Care Team (Late st Contact Info) Description 01/28/2022 Lab Requisition [facility] [address] [place] [address] Kathy Mason MD [address] [place], [place] [phone] Illness, unspecified Social History Tobacco Use Types Packs/Day Years Used Date Smoking Tobacco: Never Assessed Comments Unknown Sex and Gender Information Value Date Recorded Sex Assigned at Not on file 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 01/28/2022 12:22 PM CDT [facility] Clinical History HEMATURIA 01/28/2022 12:22 PM CDT [facility] Materials Received One thin prep slide received from [facility] [id number]. All material will be returned. 01/28/2022 12:22 PM CDT [facility] Disclaimer The performance characteristics of all immunohistochemical and indirect immunofluorescence stains (if any) cited in this report were determined by the [facility] of [facility]. Some of these tests were [...] attending (teaching) pathologist. 01/28/2022 12:22 PM CDT [facility] Case Report Surgical Pathology Report Case: [id number] Authorizing Provider: Kathy Mason MD Collected: 01/28/2022 10:46 AM Ordering Location: [facility] Received: 01/28/2022 10:51 AM Pathologist: Flaquito Bruno MD Specimen: Slide Consultation 01/28/2022 12:22 PM CDT [facility] Embedded Images 01/28/2022 12:22 PM CDT [facility] Pathology/Cytolo gy SURGICAL PATHOLOGY CONSULTATION AND REPORT ON REFERRED SLIDES PREPARED ELSEWHERE / Unknown 01/28/2022 10:46 AM CDT 01/28/2022 10:51 AM CDT Kathy Mason MD LAB - PATHOLOGY/CYTOLOGY ORDERAB LES Final Result [facility] [address] [facility] [place] [address], [facility] [phone] documented in this encounter Visit Diagnoses Diagnosis Illness, unspecified documented in this encounter
--- OUTSIDE RECORDS SUMMARY | 2024-11-17 12:59 | XMS_ITS | Encounter Summary ---
Author Organization [facility] Address [facility] [place] [address] Care Team Providers Care Director Of Payroll Name Role Phone Jimmy Doyle Primary Care Provider + Encounter Details Date Type Department Care Team (Late st Contact Info) Description 01/11/2022 Abstract [facility] [address] Doni Moore MA Social History Tobacco Use Types Packs/Day Years Used Date Smoking Tobacco: Every Day Cigarettes 1 55.2 Started: 08/19/1967 Smokeless Tobacco: Never Comments:trying to quit. 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 Alcohol Use Standard Drinks/Week Comments Never [...] Sex Assigned at Female 05/03/2024 9:57 AM POWDER SHOVELER Legal Sex Female 4:45 PM CDT Gender Identity Female 05/03/2024 9:57 AM POWDER SHOVELER Sexual Orientation Not on file COVID-19 Exposure [...] Description 02/05/2025 12:40 PM CDT Office Visit [facility] Family & Internal Medicine [facility] [address] [place] [address] Jimmy Doyle DO [address] [place] [address] 02/05/2025 1:20 PM CDT Office Visit [facility] Internal Medicine [facility] [address] [place] [address] Jimmy Doyle DO [address] [place] [address] 03/22/2025 11:45 AM POWDER SHOVELER Office Visit [facility]-[address] [phone] Abhi Aguilar MD [address] [facility] [address] [place] [phone] documented as of this encounter Goals Goal Patient Goal Type Associated Problems Recent Progress Patient-Stated? Author Patient will return to prior living situation and remain independent in ADLs upon discharge from [facility] Daysi Nayak RN documented as of this [...] Total Score: 8 05/13/19 22 10:36 AM POWDER SHOVELER documented as of this encounter Care Teams Director Of Payroll Relationship Specialty Start Date End Date Jimmy Doyle DO [address] [place] [address] PCP - General FAMILY PRACTICE 08/19/20 documented as of this encounter
--- OUTSIDE RECORDS SUMMARY | 2024-11-17 12:59 | XMS_ITS | Patient Health Record ---
Author Organization [facility] [employer] Address [address] [place] [address] Care Team Providers Care Molder Setter Name Role Phone Sulaiman Bermudez Unavailable [phone] Reason For Referral No Information Medications Medication [...] MG Oral Ac tive Cholecalciferol 1.25 MG (617[address] UT) Oral Active Ofloxacin 0.30% Otic Acti [...] ICOSAPENT ETHYL 1 GRAM CAPSULE *Reorder from WEALTH at work for eRx and Interaction Alerts* Active MiraLax 17 gram Oral *Pick strength-form from WEALTH at work for eRX* Active QUEtiapine Fumarate 300 MG Oral Active Isosorbide Mononitrate ER 30 MG Oral Active RANOLAZINE ER 500 MG TABLET,EXTENDED RELEASE,12 HR *Reorder from WEALTH at work for eRx and Interaction Alerts* Active Latuda 20 MG Oral Active Potassium Chloride Sisi ER 10 MEQ Oral Active HYDROcodone-Acetaminophen 7.5-325 MG Oral Active QUEtiapine Fumarate 50 MG Oral Active hydroCHLOROthiazide 25 MG Oral Active ERGOCALCIFEROL (VITAMIN D2) 50 MCG (2,000 UNIT) TABLET *Reorder from [facility] for eRx and Interaction Alerts* Active Carvedilol [...] Medicare Replacement/ Advantage - Ppo [address] [address] [place] [id number] DANNY VARGAS Self - patient is the insured
--- OUTSIDE RECORDS SUMMARY | 2024-11-17 12:59 | XMS_ITS | Encounter Summary ---
Author Organization [facility] Address [facility] [place] [address] Care Team Providers Care Social Media Job Titles Name Role Phone Jimmy Doyle DO Primary Care Provider + Encounter Details Date Type Department Care Team (Late st Contact Info) Description 06/23/2022 Prep for Procedure [facility] [address] [place], [place] [phone] Flaquito Valera MD [facility]. [facility] [address] [place], [place] [phone] Social History Tobacco Use Types Packs/Day Years Used Date Smoking Tobacco: Every Day Cigarettes 1 55.2 Started: 08/19/1969 Smokeless Tobacco: Never Comments:trying to quit. 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 No / Unsure 06/24/2022 12:41 PM INTRANET SPECIALIST documented as of this encounter Functional [...] things Not at all 06/24/2022 1:19 PM INTRANET SPECIALIST Adia Mckenna MA Active Feeling down, depressed, or hopeless Nearly every day 06/24/2022 1:19 PM INTRANET SPECIALIST Adia Mckenna MA Active Patient Health Questionnaire-2 Score 3 06/24/2022 1:19 PM INTRANET SPECIALIST Adia Mckenna MA Active documented as [...] Description 02/05/2025 12:40 PM CDT Office Visit [facility] Family & Internal Medicine [address] [address] Jimmy Doyle DO [address] [place] [address] 02/05/2025 1:20 PM CDT Office Visit [facility] Family & Internal Medicine - [place] [address] [place] [phone] Jimmy Doyle DO [address] [place] [address] 03/22/2025 11:45 AM INTRANET SPECIALIST Office Visit [facility]-[address] [phone] Abhi Aguilar MD [address] [facility] [address] [place] [phone] documented as of this encounter Goals [...] Total Score: 8 05/13/19 22 10:36 AM INTRANET SPECIALIST documented as of this encounter Care Teams Social Media Job Titles Relationship Specialty Start Date End Date Jimmy Doyle DO [address] [place] [address] PCP - General FAMILY PRACTICE 08/19/20 documented as of this encounter
--- OUTSIDE RECORDS SUMMARY | 2024-11-17 12:59 | XMS_ITS | Clinical Summary ---
Author Organization [facility] Address [facility] [place] [address] Care Team Providers Care Curtain Feller Blindstitch Name Role Phone Starla Arshad Vladimir QURESHI [...] every 12 (twelve) hours as needed. Active VASCEPA 1 g capsule TAKE 2 [...] DAILY 270 tablet 1 07/24/19 25 Active venlafaxine XR (EFFEXOR-XR) 150 MG [...] for Anxiety. 90 tablet 11/01/19 25 Active silver sulfADIAZINE (SILVADENE) 1 % cream Apply topically daily. Active valACYclovir (VALTREX) 1 g tabletIndications :Cold sore Take 1 tablet (1,000 mg total) by mouth 2 (two) times daily. Take for 7 days at first sign of flare and then stop. 42 tablet 11/06/19 25 Active potassium chloride CR (KLOR-CON M) 10 MEQ tabletIndications :Hypopotassemia TAKE 1 TABLET(10 MEQ) BY MOUTH DAILY 90 tablet 11/13/19 25 Active valACYclovir (VALTREX) 1 g tabletIndications :Cold sore Take 1 tablet (1,000 mg total) by mouth every 8 (eight) hours. 21 tablet 01/05/20 24 2024 Discontinued(R eorder) oxybutynin XL (DITROPAN-XL) 10 MG 24 hr tabletIndications :Incomplete emptying of bladder TAKE 1 TABLET(10 MG) BY MOUTH EVERY NIGHT AT BEDTIME 90 tablet 07/28/19 25 2024 Discontinued potassium chloride CR (KLOR-CON M) 10 MEQ tabletIndications :Hypopotassemia Take 1 tablet (10 mEq total) by mouth daily. 90 tablet 08/17/19 25 2024 Discontinued ALPRAZolam (XANAX) 0.5 MG tabletIndications :Anxiety Take 1 tablet (0.5 mg total) by mouth 3 (three) times daily as needed for Anxiety. 90 tablet 09/25/19 25 2024 Discontinued(R eorder) Active Problems Problem Noted Date Diagnosed Date Ureteral cancer, right ([facility]) 04/16/2 025 Bipolar affective disorder, currently depressed, mild ([facility]) 05/03/2023 Sedative, hypnotic or anxiol ytic dependence, uncomplicated ([facility]) 03/25/2022 PAD (peripheral artery disease) [...] 08/18/2020 Nausea 08/18/2020 Nicotine dependence 08/18/2020 On correction drug therapy 08/18/2020 Polyarthritis 08/18/2020 Postmenopausal status 08/18/2020 Primary osteoarthritis of left knee 08/18/2020 Triggering of digit 08/18/2020 Vitamin D deficiency 08/18/2020 Cerebrovascular accident ([facility]) 04/30 Body mass index (BMI) of 28.0 to 28.9 in adult 0 10/12/2018 Low back pain 10/12/2018 Muscle spasm 02/03/2018 Lumbar foraminal stenosis 01/17/2018 Bulging lumbar disc 01/16/2018 Hypertension 01/16/2018 GERD (gastroesophageal reflux disease) 8 Lumbar stenosis 01/16/2018 Osteoarthrosis 01/16/2018 Depressive disorder 01/16/2018 Chronic obstructive pulmonary disease ([facility]) 01/16/2018 Hyperlipidemia 01/16/2018 Resolved Problems Problem Noted Date Diagnosed Date Resolved Date Screening for breast cancer 08/18/2020 08/25/2020 Infiltrate of lung present on chest x-ray 08/18/2020 05/03/2024 Encounter for preventive health examination 02/13/2014 08/25/2020 Encounters Date Type Department Care Team Description 11/05/2024 10:20 AM CDT Office Visit [facility] Internal [address] [phone] Starla Arshad, DO Hypertension (Pt presents today for 3 mo f/u. No concerns or questions today) 11/05/[address] [phone] Starla Arshad, Question 11/05/2024 Travel 11/01/2024 Scan [facility] SRVCS Scanned, [facility] Image (SCAN); Procedure (SCAN) 10/25/2024 Scan [facility] Scanned, [facility] Procedure (SCAN); Image (SCAN) 10/18/2024 Scan [facility] Scanned, [facility] Procedure (SCAN) 10/16/[address] [phone] Starla Arshad, DO Medication Request 10/11/2024 Scan [...] [facility] Lab (SCAN) 09/24/[address] [phone] Starla Arshad, DO Medication Request 09/21/2024 1:45 PM CDT Office Visit [facility] [phone] Abhi Aguilar MD Coronary Artery Disease (6mo) 09/21/2024 Travel 09/18/[address] [phone] Starla Arshad P, DO Earache 09/17/2024 Scan [facility]vel[employer] Scanned, [facility] 09/12/2024 12:40 PM CDT Office Visit [address] [phone] Clare Rubio APNP Ear Concern (The patient states she has had rt ear itching since Tuesday. The patient has been using debrox. ) 09/12/2024 Travel 09/12/[address] [phone] Starla Arshad P, DO Earache 09/11/[address] [phone] Starla Arshad, DO Medication Request 09/04/2024 Scan [facility] [employer] SRVCS Scanned, [facility] from Last 3 Months Immunizations Immunization Administration [...] 1 55.2 Started: 08/19/1967 Smokeless Tobacco: Never Tobacco Cessation:Ready to Q uit: No; Counseling Given: Yes Comments:trying to quit. provider to recreational counselor Alcohol Use Standard Drinks/Week [...] Sex Assigned at Female 05/03/2024 9:57 AM FIRST SAMPLER Legal Sex Female 4:45 PM CDT Gender Identity Female 05/03/2024 9:57 AM FIRST SAMPLER Sexual Orientation Not on file Last Filed Vital Signs Vital Sign Reading Time Taken Comments Blood Pressure 122/60 11/05/2024 10:51 AM CDT Pulse 65 11/05/2024 10:51 AM CDT Temperature 36.7 C (98 F) 11/05/2024 10:51 AM CDT Respiratory Rate 16 11/05/2024 10:51 AM CDT Oxygen Saturation 95% 11/05/2024 10:51 AM CDT Inhaled Oxygen Concentration - - Weight 62.7 kg (138 lb 4.8 oz) 11/05/2024 10:51 AM CDT Height 165.1 cm (5' 5) 11/05/2024 10:51 AM CDT Body Mass Index 23.01 11/05/2024 10:51 AM CDT Plan of Treatment Upcoming Encounters Date Type Department Care Team (Late st Contact Info) Description 02/05/2025 12:40 PM CDT Office Visit [facility] [address] [phone] [place] [address] [place] [phone] 02/05/2025 1:20 PM CDT Office Visit [facility] [address] [phone] Starla Arshad, DO [address] [place] [address] 03/22/2025 11:45 AM FIRST SAMPLER Office Visit [facility] [phone] Abhi Aguilar MD [facility] [address] [place] [phone] Health Maintenance Due Date Last Done Comments Annual Medicare Wellness Visit 10/31/2024 10/31/2023 DTaP, Tdap and Td Vaccines (1 - Tdap) 12/25/2024 Postponed from 1976 (Future Appointment) Dexa Scan (General) 01/31/2025 Postpone d from 2022 (Patient Refused) COVID-19 Vaccine (6 - Pfizer risk 2023- season) 2025 01/18/2024, 01/27/2023, 01/27/2023, Additional history exists Postponed from 07/18/2024 (Future Appointment) Mammogram Screening 11/05/2025 09/09/2020, Postponed from 09/09/2022 (Patient Refused) RSV Immunization or 60+ Years (1 - Risk 60-74 years 1-dose series) 11/05/2025 Postponed fro m 2017 (Going to Outside Clinic) Colorectal Cancer Screening Colonoscopy (10 Years) 09/10/2098 Postponed from 1957 (Patient Refused) Zoster Vaccines Completed 04/06/2021, 01/27/2021 Hepatitis C Completed 04/05/2023 Pneumococcal Vaccine: 50+ Years Completed 09/28/2023, 12/31/2022, 01/12/2020, Additional history exists PHQ-2 (Physician [place]) Completed 05/03/2024 Meningococcal B Vaccine Aged Out [...] Priority Date/Time Associated Diagnosis Comments IMAGE GENERIC 11/01/2024 PROCEDURE GENERIC (SCAN ORDER) 11/01/2024 IMAGE GENERIC 10/25/2024 PROCEDURE GENERIC (SCAN ORDER) 10/25/2024 PROCEDURE GENERIC (SCAN ORDER) 10/18/2024 PROCEDURE GENERIC (SCAN ORDER) 10/18/2024 IMAGE GENERIC 10/11/2024 PROCEDURE GENERIC (SCAN ORDER) 10/11/2024 OUTSIDE LAB (SCAN ORDER) 10/10/2024 PROCEDURE GENERIC (SCAN ORDER) 10/04/2024 PROCEDURE GENERIC (SCAN ORDER) 10/04/2024 PROCEDURE GENERIC (SCAN ORDER) 10/04/2024 PROCEDURE GENERIC (SCAN ORDER) 09/27/2024 PROCEDURE GENERIC (SCAN ORDER) 09/27/2024 OUTSIDE LAB (SCAN ORDER) 09/26/2024 HEPATITIS C ANTIBODY Routine 04/05/2023 8:24 AM FIRST SAMPLER Primary hypertension Screening for lipid disorders Screening for endocrine, metabolic and immunity disorder Annual physical exam Need for hepatitis C screening test MG DIAG W WILMER BILAT DIGI Routine 09/09/2020 12:14 PM CDT Breast lump on left side at 10 o'clock position from Last 3 Months or Most Recently Relevant to Health Maintenance Results * IMAGE GENERIC (11/01/2024) Only the most recent of3 resultswithin the time period is included. Anatomical Region Laterality Modality Other 11/01/2024 Result [facility] Scanned SCANNING Final Resu lt * PROCEDURE GENERIC (SCAN ORDER) (11/01/2024) 11/01/2024 Result [facility] Scanned SCANNING Final Resu lt * PROCEDURE GENERIC (SCAN ORDER) (10/25/2024) 10/25/2024 Result [facility] Scanned SCANNING Final Resu lt * PROCEDURE GENERIC (SCAN ORDER) (10/18/2024) 10/18/2024 Result [facility] Scanned SCANNING Final Resu lt * PROCEDURE GENERIC (SCAN ORDER) (10/18/2024) 10/18/2024 Result [facility] Scanned SCANNING Final Resu lt * PROCEDURE GENERIC (SCAN ORDER) (10/11/2024) 10/11/2024 Result [facility] Scanned SCANNING Final Resu lt * OUTSIDE LAB (SCAN ORDER) (10/10/2024) Only the most recent of2 resultswithin the time period is included. 10/10/2024 us [facility] Scanned SCANNING Final Resu lt * PROCEDURE GENERIC (SCAN ORDER) (10/04/2024) 10/04/2024 Result [facility] Scanned SCANNING Final Resu lt * PROCEDURE GENERIC (SCAN ORDER) (10/04/2024) 10/04/2024 Result [facility] Scanned SCANNING Final Resu lt * PROCEDURE GENERIC (SCAN ORDER) (10/04/2024) 10/04/2024 Result [facility] Scanned SCANNING Final Resu lt * PROCEDURE GENERIC (SCAN ORDER) (09/27/2024) 09/27/2024 Result [facility] Scanned SCANNING Final Resu lt * PROCEDURE GENERIC (SCAN ORDER) (09/27/2024) 09/27/2024 Result [facility] Scanned SCANNING Final Resu lt * HEPATITIS C ANTIBODY (04/05/2023 8:24 AM FIRST SAMPLER) HEPATITIS C AB NON-REACTI VE NON-REACT RAUL 04/05/2023 6:53 PM FIRST SAMPLER [facility] Comment: ANTIBODIES TO HCV NOT DETECTED. DOES NOT EXCLUDE THE POSSIBILITY OF EXPOSURE TO HCV. 04/05/2023 8:24 AM FIRST SAMPLER Result [facility] Starla Arshad DO LABORATORY Final Re sult [facility] [address] [place] [id number], [id number] * MG MILEY RAI (09/09/2020 12:14 PM [...] Examination: Bilateral digital diagnostic mammogram with CAD. [id number] Clinical history: Left breast lump and tenderness. [...] demonstrate any discrete solid or cystic mass. [place] appearing tissue architecture is demonstrated. Physical exam surveillance is advised with any further evaluation at this point guided on that basis. From a mammographic standpoint, routine follow-up in one year would seem adequate. These findings were discussed with the patient. Starla Arshad DO MAMMO Final Re sult from Last 3 Months or Most Recently Relevant to Health Maintenance Insurance [facility] MEDICAID Advance Directives * Full Code (Latest Code Status on File) Date Activated Date Inactivated Comments 09/22/2020 12:40 PM 09/23/2020 12:52 PM Care Teams Curtain Feller Blindstitch Relationship Specialty Start Date End Date Starla Arshad DO [address] [place] [id number] PCP - General FAMILY PRACTICE 08/19/20
== END 2024-11-17 12:54 | disposition home or self-care (01) ==
PROVIDERS: PCP Student in an Organized Health Care Education/Training Program; Visit Provider Student in an Organized Health Care Education/Training Program
DX: F17.218 Nicotine dependence, cigarettes, with other nicotine-induced disorders (principal)
CPT/HCPCS: 71271

== ENCOUNTER 2024-12-06 11:23 | Outpatient (CLI) | payer MEDICARE, MEDICAID, SELFPAY ==
--- OUTSIDE RECORDS SUMMARY | 2024-12-06 12:05 | XMS_ITS | Patient Health Record ---
Author Organization [facility] As Scannx Address [address] [place] [address] Care Team Providers Care Rib Cloth Knitter Name Role Phone Sulaiman Bermudez Unavailable [phone] Reason For Referral No Information Medications Medication SIG (Take, Route, Frequency, Duration) Notes Start Date End Date Status Atorvastatin Calcium 40 MG Tablet Oral Active Ondansetron HCl 4 MG Tablet Oral Active Venlafaxine HCl ER 225 MG Tablet Extended Release 24 Hour Oral Active oxyBUTYnin Chloride ER 10 MG Tablet Extended Release 24 Hour Oral Active Nitroglycerin 0.4 MG Tablet Sublingual Sublingual Active SEROquel XR 50 MG Tablet Extended Release 24 Hour Oral Act chichi Azithromycin 250 MG Tablet Oral Active HYDROcodone-Acetaminophen 10-325 MG Tablet Oral Active SEROquel XR 150 MG Tablet Extended Release 24 Hour Oral Act chichi Venlafaxine HCl ER 150 MG Capsule Extended Release 24 Hour Oral Active Haloperidol 2 mg Tablet Oral Active methylPREDNISolone 4 MG Tablet Therapy Pack Oral Active ALPRAZolam 0.5 MG Tablet Oral Active Cholecalciferol 1.25 MG (87741 UT) Capsule Oral Active Ofloxacin 0.30% Solution Otic Active Doxycycline Hyclate 100 MG Capsule Oral Active ALPRAZolam 1 MG Tablet Oral Active Cefdinir 300 MG Capsule Oral Active Latuda 40 MG Tablet Oral Active Isosorbide Mononitrate ER 120 mg Tablet Extended Release 24 Hour Oral Active Vraylar 1.5 & 3 MG Capsule Therapy Pack Oral Active Wellbutrin SR 150 MG Tablet Extended Release 12 Hour Oral Active Lovastatin 20 MG Tablet Oral Active ICOSAPENT ETHYL 1 GRAM CAPSULE *Reorder from [employer] for eRx and Interaction Alerts* Active MiraLax 17 gram Packet Oral *Pick strength-form from [facility] for eRX* Active QUEtiapine Fumarate 300 MG Tablet Oral Active Isosorbide Mononitrate ER 30 MG Tablet Extended Release 24 Hour Oral Active RANOLAZINE ER 500 MG TABLET,EXTENDED RELEASE,12 HR *Reorder from [facility] for eRx and Interaction Alerts* Active Latuda 20 MG Tablet Oral Active Potassium Chloride Sisi ER 10 MEQ Tablet Extended Release Oral Active HYDROcodone-Acetaminophen 7.5-325 MG Tablet Oral Active QUEtiapine Fumarate 50 MG Tablet Oral Active hydroCHLOROthiazide 25 MG Tablet Oral Active ERGOCALCIFEROL (VITAMIN D2) 50 MCG (2,000 UNIT) TABLET *Reorder from [facility] for eRx and Interaction Alerts* Active Carvedilol 12.5 MG Tablet Oral Active Vascepa 1 GM Capsule Oral Active Famotidine 40 MG Tablet Oral Active Venlafaxine HCl ER 75 MG Capsule Extended Release 24 Hour Oral Active Plan Of Treatment No Information Insurance Providers Payer Name Payer Address Payer Phone Subscriber Number Group Number Insured Name Patient Relationship to Insured Coverage Start Date Coverage End Date [employer] Medicare Replacement/ Advantage - Ppo [address] [address] [place] [address] [id number] DANNY VARGAS Self - patient is the insured
--- OUTSIDE RECORDS SUMMARY | 2024-12-06 12:05 | XMS_ITS | Encounter Summary ---
Author Organization [facility] Address [address] [place] [address] Care Team Providers Care Sales Process Manager Name Role Phone Unavailable Primary Care Provider Unavailabl e Encounter Details Date Type Department Care Team (Late st Contact Info) Description 01/28/2022 Lab Requisition [facility] [address] [place] [address] Kathy Mason MD [address] [place], [place] [id number] Illness, unspecified Social History Tobacco Use Types Packs/Day Years Used Date Smoking Tobacco: Never Assessed Comments Unknown Sex and Gender Information Value Date Recorded Sex Assigned at Not on file 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 01/28/2022 12:22 PM CDT [facility] Clinical History HEMATURIA 01/28/2022 12:22 PM CDT [facility] Materials Received One thin prep slide received from [facility] [id number]. All material will be returned. 01/28/2022 12:22 PM CDT [facility] Disclaimer The performance characteristics of all immunohistochemical and indirect immunofluorescence stains (if any) cited in this report were determined by the Histopathology Laboratory of [facility]. Some of these tests [...] attending (teaching) pathologist. 01/28/2022 12:22 PM CDT [facility] Case Report Surgical Pathology Report Case: [id number] Authorizing Provider: Kathy Mason MD Collected: 01/28/2022 10:46 AM Ordering Location: [facility] Lab Received: 01/28/2022 10:51 AM Pathologist: Flaquito Bruno MD Specimen: Slide Consultation 01/28/2022 12:22 PM CDT [facility] Embedded Images 01/28/2022 12:22 PM CDT [facility] Pathology/Cytolo gy SURGICAL PATHOLOGY CONSULTATION AND REPORT ON REFERRED SLIDES PREPARED ELSEWHERE / Unknown 01/28/2022 10:46 AM CDT 01/28/2022 10:51 AM CDT Kathy Mason MD LAB - PATHOLOGY/CYTOLOGY ORDERAB LES Final Result [facility] [address] [facility] [place] [address], [facility] [phone] documented in this encounter Visit Diagnoses Diagnosis Illness, unspecified documented in this encounter
--- OUTSIDE RECORDS SUMMARY | 2024-12-06 12:05 | XMS_ITS | Clinical Summary ---
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 Gender Identity Not on file Sexual [...] Zoster Vaccine Completed 04/06/2021, 01/27/2021 Insurance [facility] MEDICARE ADVANTAGE [facility] MEDICARE ADVANTAGE [facility] MEDICARE ADVANTAGE [facility] Advance Directives For more information, please contact: [phone] * Full Code (Latest Code Status on File) Date Activated Date Inactivated Comments 02/09/2022 9:51 PM 02/12/2022 5:52 PM Care Teams Aircraft Navigator Relationship Specialty Start Date End Date Jimmy Doyle DO [address] [place] [phone] PCP - General Family Medicine 02/12/22 Derrell Varma MD [address] [place] [address] Surgeon Surgery 02/12/22
--- OUTSIDE RECORDS SUMMARY | 2024-12-06 12:05 | XMS_ITS | Clinical Summary ---
Author Organization [facility] Address [address] [place] [address] Care Team Providers Care Studio Couch Frame Builder Name Role Phone Unavailable Primary Care Provider Unavailabl e Source Comments [facility],non-owned Affiliates and Associated Physician Practices is amultiple site organization consisting of ambulatory clinics and hospital sitesin [place], [place], [place]. This disclosure is being madepursuant to the Care Everywhere program and may not contain all information available regarding this patient. 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 Gender Identity Not on file Sexual Orientation [...] patient's age to complete this topic Insurance [facility] MA[facility] MEDICARE [facility] [address] MEDICAID - [place] SELF PAY NO INSURANCE Member Subscriber Plan / Payer (Ef fective for All Dates) Name:Jeniffer Vargas Member ID:Not on file Relation to Subscriber:Not on file Name:JENIFFER VARGAS Subscriber ID:Not on file (Home) Address: [address] [place] [id number] Payer ID:Not on file Group ID:Not on file Type:Self Pay Address: [place], [place] [facility] MEDICARE ADV
[2024-12-06 12:16] LABS: Anion Gap 7 mmol/L (4-12); Blood Urea Nitrogen 12 mg/dL (7-17); Calcium 9.4 mg/dL (8.4-10.2); Carbon Dioxide 27 mmol/L (22-30); Chloride 103 mmol/L (98-107); Estimated Glomerular Filt Rate > 60; Glucose 111 mg/dL (65-110); Potassium 3.7 mmol/L (3.4-5.0); Sodium 137 mmol/L (137-145)
== END 2024-12-06 11:24 | disposition home or self-care (01) ==
LOC: ANHSURGERY 11:27
PROVIDERS: Anesthesiology; PCP Student in an Organized Health Care Education/Training Program; Visit Provider Urology
DX: I10 Essential (primary) hypertension (principal)
CPT/HCPCS: 36415; 80048

== ENCOUNTER 2024-12-13 00:12 | Day surgery (SDC) | payer MEDICARE, MEDICAID, SELFPAY ==
--- NOTE | 2024-11-28 07:16 | P.HP_ITS ---
History of Present Illness History of Present Illness Consent: Risks, benefits, and alternatives have been discussed and questions answered. Patient agrees to proceed with procedure. Chief complaint: right urothelial CA Narrative: Jeniffer Weller is a 68 year old female with history well known to this facility. She's had both UC in bladder and right upper tract and had undergone TURBT, laser ablations and, most recently, Jelmyto instillation. Review of Systems Review of Systems: All systems reviewed & are unremarkable except as noted in HPI and below PMFSH Past Medical History Medical History Chronic, continuous use of opioids Bipolar disorder, unspecified CAD (coronary artery disease) Hypertension Emphysema lung Screening for colon cancer Screening for breast cancer Postmenopausal Hx of pancreatitis Depression Kidney stones Kidney disease Urinary frequency High cholesterol Pneumonia Vision abnormalities Weight gain Cholecystectomy planned Anxiety Surgical History Surgical History H/O excision of mass 11/22/22 Excision of 5 cm perianal cyst History of cholecystectomy Hx of tonsillectomy History of partial hysterectomy H/O colonoscopy History of esophagogastroduodenoscopy (EGD) History of laryngoscopy Family History Family History Sibling Patient's brother is in good health Dementia Mother Family history of coronary artery disease Acute myocardial infarction Father Patient's father is Acute myocardial infarction Cerebrovascular accident Unknown Heart disease Cerebrovascular accident Other Family history of mental disorder Social History Social History Smoking packs per day: 1 Smoking cigarettes per day: 20.0 Years smoked: 52 Smoking pack-years: 52.00 Smoking status: Current every day smoker Tobacco type: cigarettes Second hand tobacco smoke exposure: No Alcohol intake: never Substance use: current Substance use type: marijuana Other substance usage details: Daily Last use: 09/12/24 Lack of Transportation: No Lack of Food: Never True Current Housing: I Have Housing Concerned About Future Housing: No Difficulty Paying Gas/Electric Bills: No Difficulty Paying for Meds: No Currently Unemployed: No Education: Decline to Answer Difficulty w/ Childcare or Family Care: No Living arrangements: alone Spiritual care concerns: No Meds Home Medications and Allergies Home Medications ?Medication ?Instructions ?Recorded ?Confirmed ?Type aspirin 81 mg tablet,delayed 81 mg PO DAILY 04/05/19 10/25/24 History release (Aspir-) hydrochlorothiazide 25 mg tablet 25 mg PO DAILY #90 tabs 08/27/20 10/25/24 Rx atorvastatin 40 mg tablet (Lipitor) 40 mg PO HS 01/10/21 10/25/24 History isosorbide mononitrate 30 mg 90 mg PO QACLUNCH 01/10/21 10/25/24 History tablet,extended release 24 hr nitroglycerin 0.4 mg sublingual 0.4 mg sublingual PRN CHEST PAIN 01/10/21 09/20/24 History tablet potassium chloride 10 mEq 10 meq PO DAILY 01/10/21 10/25/24 History tablet,extended release (K-Tab) venlafaxine 150 mg See Rx Instructions .Route .COMPLEX 03/02/22 10/25/24 History capsule,extended release 24 hr (Effexor XR) ranolazine 500 mg tablet,extended 500 mg PO Q12HR 30 days #60 tabs 03/04/22 10/25/24 Rx release,12 hr (Ranexa) cholecalciferol (vitamin D3) 125 125 mcg PO DAILY 11/12/22 10/25/24 History mcg (5,000 unit) tablet (Vitamin D3) hydrocodone 10 mg-acetaminophen 1 tablet PO PRN PRN pain 06/18/24 10/18/24 History 325 mg tablet oxybutynin chloride 10 mg 10 mg PO HS 06/18/24 10/25/24 History tablet,extended release 24 hr alprazolam 0.5 mg tablet 0.5 mg PO TID PRN anxiety 07/30/24 10/25/24 History carvedilol 12.5 mg tablet 12.5 mg PO BID 07/30/24 10/25/24 History ondansetron 4 mg disintegrating 4 mg PO Q6H PRN nausea and 08/14/24 09/20/24 Rx tablet vomiting #10 tabs icosapent ethyl 1 gram capsule 2 g PO BID 09/12/24 10/25/24 History quetiapine 300 mg tablet (Seroquel) 300 mg PO HS 09/12/24 10/25/24 History tolterodine 2 mg tablet 2 mg PO Q12H 09/12/24 10/25/24 History ondansetron 4 mg disintegrating 4 mg PO Q8H PRN nausea and 10/18/24 Rx tablet vomiting #20 tabs Allergies Allergy/AdvReac Type Severity Reaction Status Date / Time Penicillins Allergy Unknown Rash Verified 11/01/24 10:19 Sulfa (Sulfonamide Allergy Unknown Hives Verified 11/01/24 10:19 Antibiotics) sulfanilamide Allergy Unknown Hives Verified 11/01/24 10:19 ciprofloxacin AdvReac Intermediate Shakiness Verified 11/01/24 10:19 amitriptyline (From Elavil) AdvReac Unknown Confusion Verified 11/01/24 10:19 codeine AdvReac Unknown N/V Verified 11/01/24 10:19 tetracycline AdvReac Unknown Nausea Verified 11/01/24 10:19 doxycycline AdvReac Nausea and Verified 11/01/24 10:19 Vomiting Exam Const: General: no acute distress Resp: Effort & Inspection: normal respiratory effort GI: Inspection: non-distended GI Palp: No abdominal tenderness and No Guarding due to palpation present (GI) Auscultation: normal bowel sounds Assessment and Plan Assessment and plan (1) 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
--- NOTE | 2024-11-29 13:02 | PC.NURSE ---
Report to the Outpatient Waiting Room, entrance under the green pavilion located off [facility], at time __10 AM on date __12/13/24 . Planned Procedure Time: __1200 NOON .? Time changes happen often and if your time is changed the preop area will call you the afternoon before. - You and your visitor will be asked to self-screen and do not enter if you have any COVID symptoms. Please call surgeon if you need to reschedule. - A mask is optional within the hospital at this time. Patients may have clear liquids (water, carbonated beverages, clear teas, apple juice) until 3 hours prior to surgery ( 9AM) with a maximum of 20 ounces. - No food from midnight until time of surgery and no smoking, or chewing tobacco (or any form of nicotine). No chewing gum, candy or mints. - Take only the following medications with a SIP of water on the morning of surgery: _ALPRAZOLAM,CARVEDILOL,HYDROCODONE IF NEEDED FOR PAIN,RANOLAZINE,VENLAFAXINE DO NOT STOP ANY OF YOUR OTHER PRESCRIPTION MEDICATIONS PRIOR TO SURGERY EXCEPT THE FOLLOWING Hold all vitamins and supplements for 3 days per anesthesiologist.12/09/24 Medications to discontinue per physician __HOLD ASPIRIN 7 DAYS PRE OP PER DR ROD Date to take last dose____12/05/24 Please no make-up, nail [place], hairspray, perfume, deodorant, or body powder the day of surgery.? No jewelry (including any body piercings) or valuables the day of surgery, leave them at home.? Please take a shower or bath the night before, or the morning of, surgery with an antibacterial soap.? Wear comfortable, loose fitting clothing.? Children are encouraged to wear pajamas. - Jewelry must be removed prior to entering the operating room.? Rings and piercings that are not removed may be cut off. - The hospital will not accept responsibility for valuables.? - Please leave all valuables, including medications, at home the day of surgery. If you are going home after surgery, a licensed driver lifter of sanitation truck must drive you home.? - NO public transportation without another adult if you receive anesthesia. - We recommend that an adult stay with you for 24 hours following discharge. - We also recommend that you do not drive, make important decision, drink alcoholic beverages, or take any drugs that were not prescribed by your health care provider for at least 24 hours after your discharge time. For Pediatric surgeries, we recommend two adults accompany the child home. Follow any additional instructions given to you from your surgeon. Telephone instructions given to ___PATIENT and asked if any additional questions and then verbalized understanding. Patient advised to call surgeon office or pre surgery nurse liaison [phone] if any additional questions.
[2024-11-29 13:12] VITALS: BMI 22.7
[2024-12-13] VITALS (7 sets, daily range): BP systolic 128–154; BP diastolic 60–93; PULSE 67–71; RESP 12–14; TEMP 36.3–36.4; O2SAT 94–100; BMI 22.7
--- NOTE | ~2024-12-13 | XR_ITS ---
XR retrograde pyelogram RT Indication: Right retrograde pyelogram TECHNIQUE: Fluoroscopy used during right retrograde pyelogram performed by [Tacos Bowers MD] on 12/13/2024. 56 seconds of fluoroscopy with 114 fluoroscopic images captured. FINDINGS: Correlate with procedure note. IMPRESSION: Fluoroscopy used during right retrograde pyelogram. Reviewed, dictated and finalized at location O.
--- NOTE | 2024-12-13 06:05 | WPDHPUPDATE1 ---
History and Physical Update Update Date/Time: 12/13/24 06:05 History and Physical has been reviewed, including an updated exam of the patient. There are NO changes in the patient's condition. Risks, benefits, and alternatives have been discussed and questions answered. Patient agrees to proceed with procedure.
--- NOTE | 2024-12-13 11:15 | WPDANESEPPF ---
Anes - Initial Pre Proc Eval Procedure: Operation Date: 12/13/24 12:00 Proposed Procedures p Cystoscopy, Right Ureteroscopy, Right Retrograde Pyelogram, Possible Bladder Biopsy - Tacos Bowers MD Date/Time: 12/13/24 11:15 Surgeon: Tacos Bowers MD Pre Op Diagnosis: right urothelial CA Patient Data Age: 69 Gender: F Height: 1.66 m Weight: 63 kg Allergies Allergy/AdvReac Type Severity Reaction Status Date / Time Penicillins Allergy Unknown Rash Verified 12/13/24 10:47 Sulfa (Sulfonamide Allergy Unknown Hives Verified 12/13/24 10:47 Antibiotics) sulfanilamide Allergy Unknown Hives Verified 12/13/24 10:47 ciprofloxacin AdvReac Intermediate Shakiness Verified 12/13/24 10:47 amitriptyline (From Elavil) AdvReac Unknown Confusion Verified 12/13/24 10:47 codeine AdvReac Unknown N/V Verified 12/13/24 10:47 tetracycline AdvReac Unknown Nausea Verified 12/13/24 10:47 doxycycline AdvReac Nausea and Verified 12/13/24 10:47 Vomiting Home Medications ?Medication ?Instructions ?Recorded ?Confirmed ?Type aspirin 81 mg tablet,delayed 81 mg PO DAILY 04/05/19 12/13/24 History release (Aspir-) hydrochlorothiazide 25 mg tablet 25 mg PO DAILY #90 tabs 08/27/20 11/29/24 Rx atorvastatin 40 mg tablet (Lipitor) 40 mg PO HS 01/10/21 11/29/24 History isosorbide mononitrate 30 mg 90 mg PO QACLUNCH 01/10/21 11/29/24 History tablet,extended release 24 hr nitroglycerin 0.4 mg sublingual 0.4 mg sublingual PRN CHEST PAIN 01/10/21 11/29/24 History tablet potassium chloride 10 mEq 10 meq PO DAILY 01/10/21 11/29/24 History tablet,extended release (K-Tab) venlafaxine 150 mg See Rx Instructions .Route .COMPLEX 03/02/22 12/13/24 History capsule,extended release 24 hr (Effexor XR) ranolazine 500 mg tablet,extended 500 mg PO Q12HR 30 days #60 tabs 03/04/22 12/13/24 Rx release,12 hr (Ranexa) cholecalciferol (vitamin D3) 125 125 mcg PO DAILY 11/12/22 12/13/24 History mcg (5,000 unit) tablet (Vitamin D3) hydrocodone 10 mg-acetaminophen 1 tablet PO PRN PRN pain 06/18/24 12/13/24 History 325 mg tablet oxybutynin chloride 10 mg 10 mg PO HS 06/18/24 11/29/24 History tablet,extended release 24 hr alprazolam 0.5 mg tablet 0.5 mg PO TID PRN anxiety 07/30/24 12/13/24 History carvedilol 12.5 mg tablet 12.5 mg PO BID 07/30/24 12/13/24 History ondansetron 4 mg disintegrating 4 mg PO Q6H PRN nausea and 08/14/24 11/29/24 Rx tablet vomiting #10 tabs icosapent ethyl 1 gram capsule 2 g PO BID 09/12/24 11/29/24 History quetiapine 300 mg tablet (Seroquel) 300 mg PO HS 09/12/24 11/29/24 History tolterodine 2 mg tablet 2 mg PO Q12H 09/12/24 11/29/24 History ondansetron 4 mg disintegrating 4 mg PO Q8H PRN nausea and 10/18/24 11/29/24 Rx tablet vomiting #20 tabs Patient hx anesthesia problems: none Family hx anesthesia problems: none Results Review: All pre-operative results and documents have been reviewed as part of the pre-operative evaluation. [facility] Past Medical History Medical History Chronic, continuous use of opioids Bipolar disorder, unspecified CAD (coronary artery disease) Hypertension Emphysema lung Screening for colon cancer Screening for breast cancer Postmenopausal Hx of pancreatitis Depression Kidney stones Kidney disease Urinary frequency High cholesterol Pneumonia Vision abnormalities Weight gain Cholecystectomy planned Anxiety Surgical History Surgical History H/O excision of mass 11/22/22 Excision of 5 cm perianal cyst History of cholecystectomy Hx of tonsillectomy History of partial hysterectomy H/O colonoscopy History of esophagogastroduodenoscopy (EGD) History of laryngoscopy Family History Family History Sibling Patient's brother is in good health Dementia Mother Family history of coronary artery disease Acute myocardial infarction Father Patient's father is Acute myocardial infarction Cerebrovascular accident Unknown Heart disease Cerebrovascular accident Other Family history of mental disorder Social History Social History Smoking packs per day: 1 Smoking cigarettes per day: 20.0 Years smoked: 50 Smoking pack-years: 50.00 Smoking status: Current every day smoker Tobacco type: cigarettes Second hand tobacco smoke exposure: No Alcohol intake: never Substance use: current Substance use type: marijuana Other substance usage details: Daily Last use: 03/02/22 Lack of Transportation: No Lack of Food: Never True Current Housing: I Have Housing Concerned About Future Housing: No Difficulty Paying Gas/Electric Bills: No Difficulty Paying for Meds: No Currently Unemployed: No Education: Decline to Answer Difficulty w/ Childcare or Family Care: No Living arrangements: alone Spiritual care concerns: No Anes - Eval Final PreProcedure Day of Procedure 12/13/24 11:15 Patient weight: normal Heart: regular rate and rhythm Lungs: decreased breath sounds Airway: Mallampati scale class 1 Neurological: alert and oriented Last oral intake: >/= 8 hours ASA classification: III Emergent: no Anesthetic plan: proceed Anesthesia type and monitoring: general LMA and standard monitoring Results Review: All pre-operative results and documents have been reviewed as part of the pre-operative evaluation. Informed Consent: The patient's anesthetic plan and its attendant risks and benefits were discussed with the patient/family/POA. Questions were solicited and answers provided to the satisfaction of the patient/family/POA.
[2024-12-13] MEDS: ceFAZolin 2 GM in SODIUM CHLORIDE 0.9% IV 50 ML 100 ML IVPB (11:21)
--- NOTE | 2024-12-13 11:38 | CY_PTH ---
PATIENT: Jeniffer Weller LOC: [facility] U#:[id number] AGE/SX: 69/F ROOM: RE12/13/[address]: Tacos Bowers MD : 1955 BED: DIS: 12/13/2024 SPEC #: [id number] RECD: 12/13/24 13:18 STATUS: RUBEN REQ #: [id number] JODI: 12/13/24 11:[address]: Tacos Bowers DEPT: [facility] Cytology RECD BY: Katie Bermudez ENTERED: 12/13/24 13:18 SP TYPE: Cytology OT DR: Jimmy Doyle, DO Tissues: A - Urine Procedures: Cytopathology Cytospin
[2024-12-13] MEDS: LIDOCAINE 2% GEL UROJET 10 ML PKG MUCOUS MEM (11:46)
[2024-12-13] MEDS: LACTATED RINGERS 1,000 ML 30 ML IV CONT (11:58)
--- NOTE | 2024-12-13 12:04 | P.OP_ITS ---
Procedure Note - Detailed Date of Procedure 12/13/24 Pre-op Diagnosis History of urothelial carcinoma right renal pelvis Post-op Diagnosis Same Procedure Performed Cystoscopy, right retrograde pyelography, right ureteroscopy, right ureteral stent placement Surgeon Tacos Bowers MD Anesthesia General Findings 1. Normal right ureteral-renoscopy Description of Procedure Patient is brought to the operative suite where she was prepped draped in routine sterile fashion while in dorsal lithotomy position after the uneventful induction of a general anesthetic. Cystoscopy was undertaken with the 19 F rigid cystoscope. Urine was collected for cytology. The bladder was very carefully and inspected and found to be perfectly normal without any mucosal defects, areas of hyperemia or gretchen neoplasm. She has a single orthotopic ureteral orifice. A 0.035 in glidewire is advanced into her right renal pelvis. Retrograde pyelography was obtained with a Crownpoint catheter. This shows no evidence of obstruction or filling defects. A 7.5 F flexible digital ureteral scope was passed. All calices, the renal pelvis and entire ureter were very carefully inspected found to be endoscopically normal without any suspicion of recurrent urothelial carcinoma. There was perhaps a very wide caliber stricture in the proximal urethra so I placed a 6 F double-J ureteral stent with proximal coil in the renal pelvis and distal coil bladder. I will plan to leave that for approximately 2 weeks.
== END 2024-12-13 13:22 | disposition home or self-care (01) ==
PROVIDERS: PCP Student in an Organized Health Care Education/Training Program; Visit Provider Urology
PROC: (CPT 52352; principal; 2024-12-13 12:00)
DX: C65.1 Malignant neoplasm of right renal pelvis (principal); C66.1 Malignant neoplasm of right ureter; F17.210 Nicotine dependence, cigarettes, uncomplicated; F12.90 Cannabis use, unspecified, uncomplicated
CPT/HCPCS: 52332; 74420; 88108; J0690; C1758; C1769; C2617; J1100; J2405; J2704; J7120; Q9966

== ENCOUNTER 2024-12-14 00:46 | Emergency (ER) | payer MEDICARE, MEDICAID, SELFPAY ==
[2024-12-14 00:48] VITALS: BP 121/72; PULSE 93; RESP 18; TEMP 36.4; O2SAT 93
--- OUTSIDE RECORDS SUMMARY | 2024-12-14 00:49 | XMS_ITS | Encounter Summary ---
Author Organization [facility] Address [facility] [place] [address] Care Team Providers Care Dry Cleaning Counter Clerk Name Role Phone Jimmy Doyle Primary Care Provider + Encounter Details Date Type Department Care Team (Late st Contact Info) Description 01/11/2022 Abstract [facility] [address] Doni Moore MA Social History Tobacco Use Types Packs/Day Years Used Date Smoking Tobacco: Every Day Cigarettes 1 55.3 Started: 08/19/1969 Smokeless Tobacco: Never Comments:trying to quit. 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 Alcohol Use Standard Drinks/Week Comments Never [...] Sex Assigned at Female 05/03/2024 9:57 AM RESEARCH NUTRITIONIST Legal Sex Female 4:45 PM CDT Gender Identity Female 05/03/2024 9:57 AM RESEARCH NUTRITIONIST Sexual Orientation Not on file COVID-19 Exposure [...] Description 02/05/2025 12:40 PM CDT Office Visit [facility] Internal Medicine [facility] [address] [place] [address] Jimmy Doyle DO [address] [place] [address] 02/05/2025 1:20 PM CDT Office Visit [facility] [address] [place] [address] Jimmy Doyle DO [address] [place] [address] 03/22/2025 11:45 AM RESEARCH NUTRITIONIST Office Visit [facility] [phone] Abhi Aguilar MD [address] [facility] [address] [place] [phone] documented as of this encounter Goals Goal Patient Goal Type Associated Problems Recent Progress Patient-Stated? Author Patient will return to prior living situation and remain independent in ADLs upon discharge from [facility] Daysi Nayak RN documented as of this [...] Total Score: 8 05/13/19 22 10:36 AM RESEARCH NUTRITIONIST documented as of this encounter Care Teams Dry Cleaning Counter Clerk Relationship Specialty Start Date End Date Jimmy Doyle DO [address] [place] [id number] PCP - General FAMILY PRACTICE 08/19/20 documented as of this encounter
--- OUTSIDE RECORDS SUMMARY | 2024-12-14 00:49 | XMS_ITS | Encounter Summary ---
Author Organization [facility] Address [address] [place] [address] Care Team Providers Care Rib Stiffener And Heel Dipper Name Role Phone Unavailable Primary Care Provider Unavailabl e Encounter Details Date Type Department Care Team (Late st Contact Info) Description 01/28/2022 Lab Requisition [facility] [address] [place] [address] Kathy Mason MD [address] [place], [place] [phone] Illness, unspecified Social History Tobacco Use Types Packs/Day Years Used Date Smoking Tobacco: Never Assessed Comments Unknown Sex and Gender Information Value Date Recorded Sex Assigned at Not on file 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 01/28/2022 12:22 PM CDT [facility] Clinical History HEMATURIA 01/28/2022 12:22 PM CDT [facility] Materials Received One thin prep slide received from [facility] [id number]. All material will be returned. 01/28/2022 12:22 PM CDT [facility] Disclaimer The performance characteristics of all immunohistochemical and indirect immunofluorescence stains (if any) cited in this report were determined by the Histopathology Laboratory of [facility]. Some of these tests were developed by [...] attending (teaching) pathologist. 01/28/2022 12:22 PM CDT [facility] Case Report Surgical Pathology Report Case: [id number] Authorizing Provider: Kathy Mason MD Collected: 01/28/2022 10:46 AM Ordering Location: [facility] Lab Received: 01/28/2022 10:51 AM Pathologist: Flaquito Bruno MD Specimen: Slide Consultation 01/28/2022 12:22 PM CDT [facility] Embedded Images 01/28/2022 12:22 PM CDT [facility] Pathology/Cytolo gy SURGICAL PATHOLOGY CONSULTATION AND REPORT ON REFERRED SLIDES PREPARED ELSEWHERE / Unknown 01/28/2022 10:46 AM CDT 01/28/2022 10:51 AM CDT Kathy Mason MD LAB - PATHOLOGY/CYTOLOGY ORDERAB LES Final Result [facility] [address] [facility] [place] [address], [facility] [phone] documented in this encounter Visit Diagnoses Diagnosis Illness, unspecified documented in this encounter
--- OUTSIDE RECORDS SUMMARY | 2024-12-14 00:49 | XMS_ITS | Clinical Summary ---
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 Gender Identity Not on file Sexual Orientation [...] Zoster Vaccine Completed 04/06/2021, 01/27/2021 Insurance [facility] MEDICARE ADVANTAGE [facility] MEDICARE ADVANTAGE [facility] MEDICARE ADVANTAGE [facility] Advance Directives For more information, please contact: [phone] * Full Code (Latest Code Status on File) Date Activated Date Inactivated Comments 02/09/2022 9:51 PM 02/12/2022 5:52 PM Care Teams Preventive Medicine Physician Relationship Specialty Start Date End Date Jimmy Doyle DO [address] [place] [phone] PCP - General Family Medicine 02/12/22 Derrell Varma MD [address] [address] [place] [address] Surgeon Surgery 02/12/22
--- OUTSIDE RECORDS SUMMARY | 2024-12-14 00:49 | XMS_ITS | Encounter Summary ---
Author Organization [facility] Address [facility] [place] [address] Care Team Providers Care Honing Machine Operator Production Name Role Phone Jimmy Doyle DO Primary Care Provider + Encounter Details Date Type Department Care Team (Late st Contact Info) Description 06/23/2022 Prep for Procedure [facility] [facility] [address] [place], [place] [phone] Flaquito Valera MD [facility]. [facility] [address] [place], [place] [phone] Social History Tobacco Use Types Packs/Day Years [...] Sex Assigned at Female 05/03/2024 9:57 AM WINDOW CLERK Legal Sex Female 4:45 PM CDT Gender Identity Female 05/03/2024 9:57 AM WINDOW CLERK Sexual Orientation Not on file COVID-19 Exposure Response Date Recorded In the last 10 days, have yo u been in contact with someone who was confirmed or suspected to have Coronavirus/COVID-19? No / Unsure 06/24/2022 12:41 PM WINDOW CLERK documented as of this encounter Functional Status [...] things Not at all 06/24/2022 1:19 PM WINDOW CLERK Adia Mckenna MA Active Feeling down, depressed, or hopeless Nearly every day 06/24/2022 1:19 PM WINDOW CLERK Adia Mckenna MA Active Patient Health Questionnaire-2 Score 3 06/24/2022 1:19 PM WINDOW CLERK Adia Mckenna MA Active documented as of [...] Description 02/05/2025 12:40 PM CDT Office Visit [facility] Family & Internal Medicine [address] [phone] Jimmy Doyle DO [address] [place] [address] 02/05/2025 1:20 PM CDT Office Visit [facility] Family & Internal Medicine - [place] [address] [place] [phone] Jimmy Doyle DO [address] [place] [address] 03/22/2025 11:45 AM WINDOW CLERK Office Visit [facility] [phone] Abhi Aguilar MD 3 [facility] [address] [place] [phone] documented as of this encounter Goals [...] Total Score: 8 05/13/19 22 10:36 AM WINDOW CLERK documented as of this encounter Care Teams Honing Machine Operator Production Relationship Specialty Start Date End Date Jimmy Doyle DO [address] [place] [id number] PCP - General FAMILY PRACTICE 08/19/20 documented as of this encounter
--- OUTSIDE RECORDS SUMMARY | 2024-12-14 00:49 | XMS_ITS | Clinical Summary ---
Author Organization [facility] Address [facility] [place] [address] Care Team Providers Care Bottom Worker Name Role Phone Starla Arshad Vladimir [...] every 12 (twelve) hours as needed. Active hydroCHLOROthiazi de (HYDRODIURIL) 25 MG tabletIndications [...] DAILY 270 tablet 1 07/24/19 25 Active tolterodine (DETROL) 2 MG tablet Take 1 tablet (2 mg total) by mouth 2 (two) times daily as needed. 08/15/19 25 Active oxybutynin XL (DITROPAN-XL) 10 MG 24 hr tabletIndications :Incomplete emptying of bladder TAKE 1 TABLET(10 MG) BY MOUTH EVERY NIGHT AT BEDTIME 90 tablet 10/24/19 25 Active silver sulfADIAZINE (SILVADENE) 1 % [...] MOUTH DAILY 90 tablet 11/13/19 25 Active HYDROcodone-aceta minophen (NORCO) 10-325 MG tabletIndications :Chronic Pain Take 1 tablet by mouth every 8 (eight) hours as needed for Pain. Indications: Chronic Pain 90 tablet 11/27/19 25 Active ALPRAZolam (XANAX) 0.5 MG tabletIndications :Anxiety Take 1 tablet (0.5 mg total) by mouth 3 (three) times daily as needed for Anxiety. 90 tablet 12/04/19 25 Active icosapent ethyl (VASCEPA) 1 G capsule TAKE 2 CAPSULES BY MOUTH TWICE DAILY WITH MEALS 360 capsule 1 12/07/19 25 Active ranolazine ER (RANEXA) 500 MG 12 hr tablet TAKE 1 TABLET(500 MG) BY MOUTH TWICE DAILY 180 tablet 1 12/08/19 25 Active venlafaxine XR (EFFEXOR-XR) 150 MG 24 hr capsuleIndication s:Bipolar affective disorder, currently depressed, mild (CMS/HCC HHS/HCC) TAKE 1 CAPSULE(150 MG) BY MOUTH DAILY 90 capsule 3 12/08/19 25 Active atorvastatin (LIPITOR) 40 MG tablet TAKE 1 TABLET(40 MG) BY MOUTH EVERY NIGHT AT BEDTIME 90 tablet 12/12/19 25 Active VASCEPA 1 g capsule TAKE 2 CAPSULES BY MOUTH TWICE DAILY WITH MEALS 360 capsule 2 03/06/20 24 2024 Discontinued atorvastatin (LIPITOR) 40 MG tablet TAKE 1 TABLET(40 MG) BY MOUTH EVERY NIGHT AT BEDTIME 90 tablet 2 03/19/20 24 2024 Discontinued ranolazine ER (RANEXA) 500 MG 12 hr tablet TAKE 1 TABLET(500 MG) BY MOUTH TWICE DAILY 180 tablet 1 06/19/19 25 2024 Discontinued venlafaxine XR (EFFEXOR-XR) 150 MG 24 hr capsuleIndication s:Bipolar affective disorder, currently depressed, mild (CMS/HCC HHS/HCC) TAKE 1 CAPSULE(150 MG) BY MOUTH DAILY 90 capsule 09/04/19 25 2024 Discontinued HYDROcodone-aceta minophen (NORCO) 10-325 MG tabletIndications :Chronic Pain Take 1 tablet by mouth every 8 (eight) hours as needed for Pain. Indications: Chronic Pain 90 tablet 10/17/19 25 2024 Discontinued(R eorder) ALPRAZolam (XANAX) 0.5 MG tabletIndications :Anxiety Take 1 tablet (0.5 mg total) by mouth 3 (three) times daily as needed for Anxiety. 90 tablet 11/01/19 25 2024 Discontinued(R eorder) Active Problems Problem Noted Date Diagnosed Date Ureteral cancer, right ([facility]) 025 Bipolar affective disorder, currently depressed, mild ([facility]) 05/03/2023 Sedative, hypnotic or anxiol ytic dependence, uncomplicated ([facility]) 03/25/2022 PAD (peripheral artery disease) 02/19/2022 Right iliac artery stenosis 02/19/2022 Allergies 07/31/2021 Right lower quadrant abdominal pain 07/31/2021 Tobacco abuse 07/31/2021 Radiculopathy, lumbar region 12/29/2020 Other intervertebral disc degeneration, lumbar r egion 12/29/2020 Spondylolisthesis of lumbar region 12/29/2020 Coronary artery disease of n ative artery of [place] heart with stable angina pectoris 10/01/2020 Degenerative [...] 08/18/2020 Nausea 08/18/2020 Nicotine dependence 08/18/2020 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 08/18/2020 Polyarthritis 08/18/2020 Postmenopausal status 08/18/2020 Primary osteoarthritis of left knee 08/18/2020 Triggering of digit 08/18/2020 Vitamin D deficiency 08/18/2020 Cerebrovascular accident ([facility]) 04/30 Body mass index (BMI) of 28.0 to 28.9 in adult 0 10/12/2018 Low back pain 10/12/2018 Muscle spasm 02/03/2018 Lumbar foraminal stenosis 01/17/2018 Bulging lumbar disc 01/16/2018 Hypertension 01/16/2018 GERD (gastroesophageal reflux disease) 8 Lumbar stenosis 01/16/2018 Osteoarthrosis 01/16/2018 Depressive disorder 01/16/2018 Chronic obstructive pulmonary disease ([facility]) 01/16/2018 Hyperlipidemia 01/16/2018 Resolved Problems Problem Noted Date Diagnosed Date Resolved Date Screening for breast cancer 08/18/2020 08/25/2020 Infiltrate of lung present on chest x-ray 08/18/2020 05/03/2024 Encounter for preventive health examination 02/13/2014 08/25/2020 Encounters Date Type Department Care Team Description 12/03/2024 Telephone [facility] Internal [address] [address] Starla Arshad, DO Medication Request 11/26/2024 Telephone [facility] Internal [address] [address] Starla Arshad, DO Medication Request 11/22/2024 Telephone [facility] Internal [address] [address] Starla Arshad, DO Radiology Results 11/17/2024 Scan HEALTH INFO SRVCS Scanned, [facility] CT (SCAN) 11/05/2024 10:20 AM CDT Office Visit [facility] Internal [address] [address] Starla Arshad P, DO Hypertension (Pt presents today for 3 mo f/u. No concerns or questions today) 11/05/2024 Telephone [facility] Internal [address] [address] Starla Arshad, DO Question 11/05/2024 Travel 11/01/2024 Scan MG HEALTH INFO SRVCS Scanned, [facility] Image (SCAN); Procedure (SCAN) 10/25/2024 Scan [facility] HEALTH INFO SRVCS Scanned, [facility] Procedure (SCAN); Image (SCAN) 10/18/2024 Scan MG HEALTH INFO SRVCS Scanned, [facility] Procedure (SCAN) 10/16/[address] [address] Starla Arshad, DO Medication Request 10/11/2024 Scan [...] [facility] Lab (SCAN) 09/24/[address] [address] Starla Arshad, DO Medication Request 09/21/2024 1:45 PM CDT Office Visit [facility] [phone] Abhi Aguilar MD Coronary Artery Disease (6mo) 09/21/2024 Travel 09/19/2024 Scan [facility] HEALTH INFO SRVCS Scanned, [facility] 09/18/[address] [address] Starla Arsahd, DO Earache 09/17/2024 Scan MG HEALTH INFO SRVCS Scanned, [facility] from Last [...] 1 55.3 Started: 08/19/1967 Smokeless Tobacco: Never Tobacco Cessation:Ready to Q uit: No; Counseling Given: Yes Comments:trying to quit. provider to scholarship counselor Alcohol Use Standard Drinks/Week Comments Never [...] Sex Assigned at Female 05/03/2024 9:57 AM STARCH DUMPER Legal Sex Female 4:45 PM CDT Gender Identity Female 05/03/2024 9:57 AM STARCH DUMPER Sexual Orientation Not on file Last Filed [...] Description 02/05/2025 12:40 PM CDT Office Visit [facility] [address] [address] Starla Arshad DO [address] [place] [address] 02/05/2025 1:20 PM CDT Office Visit [facility] [address] [address] Starla Arshad, DO [address] [place] [address] 03/22/2025 11:45 AM STARCH DUMPER Office Visit [facility] [phone] Abhi Aguilar MD 3 [facility] [address] [place] [phone] Health Maintenance Due Date Last Done Comments Annual Medicare Wellness Visit 10/31/2024 10/31/2023 DTaP, Tdap and Td Vaccines (1 - Tdap) 12/25/2024 Postponed from 1976 (Future Appointment) Dexa Scan (General) 01/31/2025 Postpone d from 2022 (Patient Refused) COVID-19 Vaccine (6 - Pfizer risk ) 11/05/2025 01/18/2024, 01/27/2023, 01/27/2023, Additional history exists Postponed from 07/18/2024 (Future Appointment) Mammogram Screening 11/05/2025 09/09/2020, 1 Postponed from 09/09/2022 (Patient Refused) RSV Immunization or 60+ Years (1 - Risk 60-74 years 1-dose series) 11/05/2025 Postponed fro m 2017 (Going to Outside Clinic) Colorectal Cancer Screening Colonoscopy (10 Years) 09/10/2098 Postponed from 1957 (Patient Refused) Zoster Vaccines Completed 04/06/2021, 01/27/2021 Hepatitis C Completed 04/05/2023 Pneumococcal Vaccine: 50+ Years Completed 09/28/2023, 12/31/2022, 01/12/2020, Additional history exists PHQ-2 (Physician [place]) Completed 05/03/2024 Meningococcal B Vaccine Aged Out [...] upon discharge from hospital 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, 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 Procedure Name Priority Date/Time Associated Diagnosis Comments CT GENERIC 11/17/2024 IMAGE GENERIC 11/01/2024 PROCEDURE GENERIC (SCAN ORDER) [...] HEPATITIS C ANTIBODY Routine 04/05/2023 8:24 AM STARCH DUMPER Primary hypertension Screening for lipid disorders Screening for endocrine, metabolic and immunity disorder Annual physical exam Need for hepatitis C screening test MG DIAG W WILMER BILAT DIGI Routine 09/09/2020 12:14 PM CDT Breast lump on left side at 10 o'clock position from Last 3 Months or Most Recently Relevant to Health Maintenance Results * CT GENERIC (11/17/2024) Anatomical Region Laterality Modality Other 11/17/2024 [facility] Scanned SCANNING Final Resu lt * IMAGE GENERIC (11/01/2024) Only the most recent of3 resultswithin the time period is included. Anatomical Region Laterality Modality Other 11/01/2024 [facility] Scanned SCANNING Final Resu lt * PROCEDURE GENERIC (SCAN ORDER) (11/01/2024) 11/01/2024 Result [facility] Scanned SCANNING Final Resu lt * PROCEDURE GENERIC (SCAN ORDER) (10/25/2024) 10/25/2024 [facility] Scanned SCANNING Final Resu lt * PROCEDURE GENERIC (SCAN ORDER) (10/18/2024) 10/18/2024 [facility] Scanned SCANNING Final Resu lt * PROCEDURE GENERIC (SCAN ORDER) (10/18/2024) 10/18/2024 Result [facility] Scanned SCANNING Final Resu lt * PROCEDURE GENERIC (SCAN ORDER) (10/11/2024) 10/11/2024 Result [facility] Scanned SCANNING Final Resu lt * OUTSIDE LAB (SCAN ORDER) (10/10/2024) Only the most recent of2 resultswithin the time period is included. 10/10/2024 Result [facility] Scanned SCANNING Final Resu lt * PROCEDURE GENERIC (SCAN ORDER) (10/04/2024) 10/04/2024 Result [facility] Scanned SCANNING Final Resu lt * PROCEDURE GENERIC (SCAN ORDER) (10/04/2024) 10/04/2024 Result [facility] Scanned SCANNING Final Resu lt * PROCEDURE GENERIC (SCAN ORDER) (10/04/2024) 10/04/2024 Result [facility] Scanned SCANNING Final Resu lt * PROCEDURE GENERIC (SCAN ORDER) (09/27/2024) 09/27/2024 Result [facility] Scanned SCANNING Final Resu lt * PROCEDURE GENERIC (SCAN ORDER) (09/27/2024) 09/27/2024 Result [facility] Scanned SCANNING Final Resu lt * HEPATITIS C ANTIBODY (04/05/2023 8:24 AM STARCH DUMPER) HEPATITIS C AB NON-REACTI VE NON-REACT RAUL 04/05/2023 6:53 PM STARCH DUMPER [facility] Comment: ANTIBODIES TO HCV NOT DETECTED. DOES NOT EXCLUDE THE POSSIBILITY OF EXPOSURE TO HCV. 04/05/2023 8:24 AM STARCH DUMPER Starla Arshad DO LABORATORY Final Re sult [facility] [address] [place] [address], [place] [phone] * MG DIAG W WILMER BILAT DIGI [...] Examination: Bilateral digital diagnostic mammogram with CAD. [id number] Clinical history: Left breast lump and tenderness. [...] demonstrate any discrete solid or cystic mass. Hodgeman appearing tissue architecture is demonstrated. Physical exam surveillance is advised with any further evaluation at this point guided on that basis. From a mammographic standpoint, routine follow-up in one year would seem adequate. These findings were discussed with the patient. Starla Arshad DO MAMMO Final Re sult from Last 3 Months or Most Recently Relevant to Health Maintenance Insurance [facility] MEDICAID Advance Directives * Full Code (Latest Code Status on File) Date Activated Date Inactivated Comments 09/22/2020 12:40 PM 09/23/2020 12:52 PM Care Teams Bottom Worker Relationship Specialty Start Date End Date Starla Arshad DO [address] [place] [address] [phone] PCP - General FAMILY PRACTICE 08/19/20
--- OUTSIDE RECORDS SUMMARY | 2024-12-14 00:49 | XMS_ITS | Encounter Summary ---
Author Organization [facility] Address [facility] [place] [address] Care Team Providers Care Insurance Claims Specialist Name Role Phone Jimmy Doyle DO Primary Care Provider + Reason for Referral * Imaging (Routine) - Closed Specialty Diagnoses / Procedures Referred By Contmahogany t Referred To Contact RADIOLOGY Diagnoses Current smoker Cigarette nicotine dependence with other nicotine-induced disorder Tobacco abuse Procedures CT LUNG SCREENING Jimmy Doyle DO [address] [place] [address] Phone: tel: fax: [address] [address] Phone: tel: fax: Referral ID Status Reason Start Date Expiration Date Visits Re quested Visits Authorized [id number] Closed 11/05/2024 11/06/2025 1 1 Reason for Visit * Reason Onset Date Comments Question 11/05/2024 Encounter Details Date Type Department Care Team (Late st Contact Info) Description 11/05/2024 Telephone [facility] [address] [place] [address] Jimmy Doyle DO [address] [place] [address] Question Social History Tobacco Use Types Packs/Day Years Used Date Smoking Tobacco: Every Day Cigarettes 1 55.3 Started: 08/19/1967 Smokeless Tobacco: Never Comments:trying to quit. 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 Alcohol Use Standard Drinks/Week Comments Never [...] Sex Assigned at Female 05/03/2024 9:57 AM INDUSTRIAL GAS SERVICER SUPERVISOR Legal Sex Female 4:45 PM CDT Gender Identity Female 05/03/2024 9:57 AM INDUSTRIAL GAS SERVICER SUPERVISOR Sexual Orientation Not on file documented [...] Description 02/05/2025 12:40 PM CDT Office Visit [facility] Family & Internal Medicine - [address] [phone] Jimmy Doyle DO [address] [place] [address] 02/05/2025 1:20 PM CDT Office Visit [facility] Family & Internal Medicine - [address] [phone] Jimmy Doyle DO [address] [place] [address] 03/22/2025 11:45 AM INDUSTRIAL GAS SERVICER SUPERVISOR Office Visit [facility]-[address] [phone] Abhi Aguilar MD 3 [facility] [address] [place] [phone] Scheduled Orders Name Type Priority Associated Diagnoses [...] Depression Total Score: 10 025 9:55 AM INDUSTRIAL GAS SERVICER SUPERVISOR documented as of this encounter Care Teams Insurance Claims Specialist Relationship Specialty Start Date End Date Jimmy Doyle DO [address] [place] [id number] PCP - General FAMILY PRACTICE 08/19/20 documented as of this encounter
--- OUTSIDE RECORDS SUMMARY | 2024-12-14 00:49 | XMS_ITS | Clinical Summary ---
Author Organization [facility] Address [address] [place] [address] Care Team Providers Care Supercalender Operator Helper Name Role Phone Unavailable Primary Care Provider Unavailabl e Source Comments [facility],non-owned Affiliates and Associated Physician Practices is amultiple site organization consisting of ambulatory clinics and hospital sitesin [place], [place], [place] and [place]. This disclosure is being madepursuant to the Care Everywhere program and may not contain all information available regarding this patient. Last updated 18.[facility] [employer] Social History Tobacco Use Types Packs/Day Years Used Date Smoking Tobacco: Never Assessed Comments Unknown Sex and Gender Information Value Date Recorded Sex Assigned at Not on file Legal Sex Female 6:27 PM ACRYLIC FABRICATOR Gender Identity Not on file Sexual Orientation [...] patient's age to complete this topic Insurance [facility] MANAGED MEDICARE [facility] MEDICAID - [place] SELF PAY NO INSURANCE Member Subscriber Plan / Payer (Ef fective for All Dates) Name:Jeniffer Vargas Member ID:Not on file Relation to Subscriber:Not on file Name:JENIFFER VARGAS Subscriber ID:Not on file (Home) Address: [address] [place] [id number] Payer ID:Not on file Group ID:Not on file Type:Self Pay Address: [place], [place] [facility] MANAGED MEDICARE ADV
--- OUTSIDE RECORDS SUMMARY | 2024-12-14 00:49 | XMS_ITS | Patient Health Record ---
Author Organization [facility] [employer] Address [address] [place] [address] Care Team Providers Care Career Services Manager Name Role Phone Sulaiman Bermudez Unavailable [phone] Reason For Referral No Information Medications Medication [...] MG Tablet Oral Active Cholecalciferol 1.25 MG (53780 UT) Capsule Oral Active Ofloxacin 0.30% Solution [...] ICOSAPENT ETHYL 1 GRAM CAPSULE *Reorder from [employer] for eRx and Interaction Alerts* Active MiraLax 17 gram Packet Oral *Pick strength-form from [facility] for eRX* Active QUEtiapine Fumarate 300 MG Tablet Oral Active Isosorbide Mononitrate ER 30 MG Tablet Extended Release 24 Hour Oral Active RANOLAZINE ER 500 MG TABLET,EXTENDED RELEASE,12 HR *Reorder from [facility] for eRx and Interaction Alerts* Active Latuda 20 MG Tablet Oral Active Potassium Chloride Sisi ER 10 MEQ Tablet Extended Release Oral Active HYDROcodone-Acetaminophen 7.5-325 MG Tablet Oral Active QUEtiapine Fumarate 50 MG Tablet Oral Active hydroCHLOROthiazide 25 MG Tablet Oral Active ERGOCALCIFEROL (VITAMIN D2) 50 MCG (2,000 UNIT) TABLET *Reorder from [facility] for eRx and Interaction Alerts* Active Carvedilol [...] Medicare Replacement/ Advantage - P[place] [address] [address] [place] [address] [id number] DANNY VARGAS Self - patient is the insured
--- OUTSIDE RECORDS SUMMARY | 2024-12-14 01:25 | XMS_ITS | Encounter Summary ---
Author Organization [facility] Address [address] [place] [address] Care Team Providers Care Repairer Auto Clocks Name Role Phone Unavailable Primary Care Provider Unavailabl e Encounter Details Date Type Department Care Team (Late st Contact Info) Description 01/28/2022 Lab Requisition [facility] [address] [place] [address] Kathy Mason MD [address] [place], [place] [id number] Illness, unspecified Social History Tobacco Use Types Packs/Day Years Used Date Smoking Tobacco: Never Assessed Comments Unknown Sex and Gender Information Value Date Recorded Sex Assigned at Not on file Legal Sex Female 6:27 PM LITHOPONE CHARGER Gender Identity Not on file Sexual Orientation [...] 10:46 AM CDT) Final Diagnosis URINE/VOIDED (OSC: [id number]; 01/25/2022): - Negative for high grade urothelial carcinoma 01/28/2022 12:22 PM CDT [facility] at 1222 CDT Microscopic Description and Comment Microscopic examination substantiates the final diagnosis. 01/28/2022 12:22 PM CDT [facility] Clinical History HEMATURIA 01/28/2022 12:22 PM CDT [facility] Materials Received One thin prep slide received from [facility] [id number]. All material will be returned. 01/28/2022 12:22 PM CDT [facility] Disclaimer The performance characteristics of all immunohistochemical and indirect immunofluorescence stains (if any) cited in this report were determined by the [facility]opathology [facility] of [facility]. Some of these tests were [...] attending (teaching) pathologist. 01/28/2022 12:22 PM CDT [facility] Case Report Surgical Pathology Report Case: [id number] Authorizing Provider: Kathy Mason MD Collected: 01/28/2022 10:46 AM Ordering Location: [facility] Lab Received: 01/28/2022 10:51 AM Pathologist: Flaquito Bruno MD Specimen: Slide Consultation 01/28/2022 12:22 PM CDT [facility] Embedded Images 01/28/2022 12:22 PM CDT [facility] Pathology/Cytolo gy SURGICAL PATHOLOGY CONSULTATION AND REPORT ON REFERRED SLIDES PREPARED ELSEWHERE / Unknown 01/28/2022 10:46 AM CDT 01/28/2022 10:51 AM CDT Kathy Mason MD LAB - PATHOLOGY/CYTOLOGY ORDERAB LES Final Result [facility] [address] [facility] [place] [address], [facility] [phone] documented in this encounter Visit Diagnoses Diagnosis Illness, unspecified documented in this encounter
--- OUTSIDE RECORDS SUMMARY | 2024-12-14 01:25 | XMS_ITS | Clinical Summary ---
Author Organization [facility] Address [address] [place] [address] Care Team Providers Care Nursing Associate Name Role Phone Unavailable Primary Care Provider Unavailabl e Source Comments [facility],non-owned Affiliates and Associated Physician Practices is amultiple site organization consisting of ambulatory clinics and hospital sitesin [place], [place], [place] and [place]. This disclosure is being madepursuant to the Care Everywhere program and may not contain all information available regarding this patient. 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 PSYCHOMETRIST Gender Identity Not on file Sexual Orientation [...] patient's age to complete this topic Insurance [facility] MANAGED MEDICARE [facility] MEDICAID - [place] SELF PAY NO INSURANCE Member Subscriber Plan / Payer (Ef fective for All Dates) Name:Jeniffer Vargas Member ID:Not on file Relation to Subscriber:Not on file Name:JENIFFER VARGAS Subscriber ID:Not on file (Home) Address: [address] [place] [phone] Payer ID:Not on file Group ID:Not on file Type:Self Pay Address: [place], [place] [facility] MANAGED MEDICARE ADV
--- OUTSIDE RECORDS SUMMARY | 2024-12-14 01:25 | XMS_ITS | Encounter Summary ---
Author Organization [facility] Address [facility] [place] [address] Care Team Providers Care Food Writer Name Role Phone Jimmy Doyle DO Primary Care Provider + Encounter Details Date Type Department Care Team (Late st Contact Info) Description 06/23/2022 Prep for Procedure [facility], [facility] [address] [place], [place] [id number] Flaquito Valera MD [facility]. [facility] [address] [place], [place] [id number] Social History Tobacco Use Types Packs/Day Years [...] Sex Assigned at Female 05/03/2024 9:57 AM SURVEILLANCE SYSTEMS ENGINEER Legal Sex Female 4:45 PM CDT Gender Identity Female 05/03/2024 9:57 AM SURVEILLANCE SYSTEMS ENGINEER Sexual Orientation Not on file COVID-19 Exposure Response Date Recorded In the last 10 days, have yo u been in contact with someone who was confirmed or suspected to have Coronavirus/COVID-19? No / Unsure 06/24/2022 12:41 PM SURVEILLANCE SYSTEMS ENGINEER documented as of this encounter Functional Status [...] things Not at all 06/24/2022 1:19 PM SURVEILLANCE SYSTEMS ENGINEER Adia Mckenna MA Active Feeling down, depressed, or hopeless Nearly every day 06/24/2022 1:19 PM SURVEILLANCE SYSTEMS ENGINEER Adia Mckenna MA Active Patient Health Questionnaire-2 Score 3 06/24/2022 1:19 PM SURVEILLANCE SYSTEMS ENGINEER Adia Mckenna MA Active documented as of [...] Description 02/05/2025 12:40 PM CDT Office Visit [facility] Family & Internal Medicine [address] [phone] Jimmy Doyle DO [address] [place] [address] 02/05/2025 1:20 PM CDT Office Visit [facility] Family & Internal Medicine - [place] [address] [place] [phone] Jimmy Doyle DO [address] [place] [address] 03/22/2025 11:45 AM SURVEILLANCE SYSTEMS ENGINEER Office Visit [facility] [phone] Abhi Aguilar MD [address] [facility] [address] [place] [phone] documented as of this encounter Goals [...] Total Score: 8 05/13/19 22 10:36 AM SURVEILLANCE SYSTEMS ENGINEER documented as of this encounter Care Teams Food Writer Relationship Specialty Start Date End Date Jimmy Doyle DO [address] [place] [id number] PCP - General FAMILY PRACTICE 08/19/20 documented as of this encounter
--- OUTSIDE RECORDS SUMMARY | 2024-12-14 01:25 | XMS_ITS | Clinical Summary ---
Author Organization [facility] Address [facility] [place] [address] Care Team Providers Care Radiology Technologist Name Role Phone Jimmy Doyle Primary Care Provide r Derrell Varma MD Unavailable [phone] Allergies Active Allergy Reactions Criticality Noted [...] on file Legal Sex Female 12:04 PM LIFE INSURANCE SPECIALIST Gender Identity Not on file Sexual Orientation [...] Zoster Vaccine Completed 04/06/2021, 01/27/2021 Insurance [facility] MEDIC[facility] ADVANTAGE [facility] MEDICARE ADVANTAGE [facility] MEDIC[facility] ADVANTAGE [facility] Advance Directives For more information, please contact: [phone] * Full Code (Latest Code Status on File) Date Activated Date Inactivated Comments 02/09/2022 9:51 PM 02/12/2022 5:52 PM Care Teams Radiology Technologist Relationship Specialty Start Date End Date Jimmy Doyle DO [address] [place] [phone] PCP - General Family Medicine 02/12/22 Derrell Varma MD [address] [facility] [address] [place] [address] Surgeon Surgery 02/12/22
--- OUTSIDE RECORDS SUMMARY | 2024-12-14 01:25 | XMS_ITS | Encounter Summary ---
Author Organization [facility] Address [facility] [place] [address] Care Team Providers Care Church History Teacher Name Role Phone Jimmy Doyle DO Primary Care Provider + Reason for Referral * Imaging (Routine) - Closed Specialty Diagnoses / Procedures Referred By Contmahogany t Referred To Contact RADIOLOGY Diagnoses Current smoker Cigarette nicotine dependence with other nicotine-induced disorder Tobacco abuse Procedures CT LUNG SCREENING Jimmy Doyle DO [address] [place] [address] Phone: tel: fax: [address] [address] Phone: tel: fax: Referral ID Status Reason Start Date Expiration Date Visits Re quested Visits Authorized [id number] Closed 11/05/2024 11/06/2025 1 1 Reason for Visit * Reason Onset Date Comments Question 11/05/2024 Encounter Details Date Type Department Care Team (Late st Contact Info) Description 11/05/2024 Telephone [facility] Family & Internal Medicine [facility] [address] [place] [address] Jimmy Doyle DO [address] [place] [address] Question Social History Tobacco Use Types Packs/Day Years Used Date Smoking Tobacco: Every Day Cigarettes 1 55.3 Started: [birth year]/19/1967 Smokeless Tobacco: Never Comments:trying to quit. 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 Alcohol Use Standard Drinks/Week Comments Never [...] Sex Assigned at Female 05/03/2024 9:57 AM FLOOR RENOVATOR Legal Sex Female 4:45 PM CDT Gender Identity Female 05/03/2024 9:57 AM FLOOR RENOVATOR Sexual Orientation Not on file documented as [...] 02/05/2025 12:40 PM CDT Office Visit [facility] Family & Internal Medicine - [address] [phone] Jimmy Doyle DO [address] [place] [address] 02/05/2025 1:20 PM CDT Office Visit [facility] Family & Internal Medicine - [address] [phone] Jimmy Doyle DO [address] [place] [address] 03/22/2025 11:45 AM FLOOR RENOVATOR Office Visit [facility] [phone] Abhi Aguilar MD 3 [facility] [address] [place] [phone] Scheduled Orders Name Type Priority Associated Diagnoses [...] Depression Total Score: 10 025 9:55 AM FLOOR RENOVATOR documented as of this encounter Care Teams Church History Teacher Relationship Specialty Start Date End Date Jimmy Doyle DO [address] [place] [id number] PCP - General FAMILY PRACTICE 08/19/20 documented as of this encounter
--- OUTSIDE RECORDS SUMMARY | 2024-12-14 01:25 | XMS_ITS | Clinical Summary ---
Author Organization [facility] Address [facility] [place] [address] Care Team Providers Care Skein Tier Name Role Phone Starla Arshad Vladimir QURESHI [...] Noted Date Diagnosed Date Ureteral cancer, right ([facility]) 025 Bipolar affective disorder, currently depressed, mild ([facility]) 05/03/2023 Sedative, hypnotic or anxiol ytic dependence, uncomplicated ([facility]) 03/25/2022 PAD (peripheral artery disease) 02/19/2022 Right iliac artery stenosis 02/19/2022 Allergies 07/31/2021 Right lower quadrant abdominal pain 07/31/2021 Tobacco abuse 07/31/2021 Radiculopathy, lumbar region 12/29/2020 Other intervertebral disc degeneration, lumbar r egion 12/29/2020 Spondylolisthesis of lumbar region 12/29/2020 Coronary artery disease of n ative artery of [place] heart with stable angina pectoris 10/01/2020 Degenerative [...] 08/18/2020 Nausea 08/18/2020 Nicotine dependence 08/18/2020 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 08/18/2020 Polyarthritis 08/18/2020 Postmenopausal status 08/18/2020 Primary osteoarthritis of left knee 08/18/2020 Triggering of digit 08/18/2020 Vitamin D deficiency 08/18/2020 Cerebrovascular accident ([facility]) 04/30 Body mass index (BMI) of 28.0 to 28.9 in adult 0 10/12/2018 Low back pain 10/12/2018 Muscle spasm 02/03/2018 Lumbar foraminal stenosis 01/17/2018 Bulging lumbar disc 01/16/2018 Hypertension 01/16/2018 GERD (gastroesophageal reflux disease) 8 Lumbar stenosis 01/16/2018 Osteoarthrosis 01/16/2018 Depressive disorder 01/16/2018 Chronic obstructive pulmonary disease ([facility]) 01/16/2018 Hyperlipidemia 01/16/2018 Resolved Problems Problem Noted Date Diagnosed Date Resolved Date Screening for breast cancer 08/18/2020 08/25/2020 Infiltrate of lung present on chest x-ray 08/18/2020 05/03/2024 Encounter for preventive health examination 02/13/2014 08/25/2020 Encounters Date Type Department Care Team Description 12/03/2024 Telephone [facility] Internal [address] [phone] Starla Arshad, DO Medication Request 11/26/2024 Telephone [facility] Internal [address] [phone] Starla Arshad, DO Medication Request 11/22/2024 Telephone [facility] Family Internal [address] [phone] Starla Arshad, DO Radiology Results 11/17/2024 Scan HEALTH INFO SRVCS Scanned, Doc [facility] CT (SCAN) 11/05/2024 10:20 AM CDT Office Visit [facility] Internal [address] [phone] Starla Arshad P, DO Hypertension (Pt presents today for 3 mo f/u. No concerns or questions today) 11/05/2024 Telephone [facility] Internal [address] [address] Starla Arshad, DO Question 11/05/2024 Travel 11/01/2024 Scan [facility] HEALTH INFO SRVCS Scanned, [facility] Image (SCAN); Procedure (SCAN) 10/25/2024 Scan [facility] HEALTH INFO SRVCS Scanned, [facility] Procedure (SCAN); Image (SCAN) 10/18/2024 Scan [facility] HEALTH INFO SRVCS Scanned, [facility] Procedure (SCAN) 10/16/[address] [address] Starla Arshad, DO Medication Request 10/11/2024 Scan [...] [facility] Lab (SCAN) 09/24/[address] [address] Starla Arshad, DO Medication Request 09/21/2024 1:45 PM CDT Office Visit [facility] [phone] Abhi Aguilar MD Coronary Artery Disease (6mo) 09/21/2024 Travel 09/19/2024 Scan [facility] HEALTH INFO SRVCS Scanned, [facility] 09/18/[address] [address] Starla Arshad, DO Earache 09/17/2024 Scan MG [...] Given: Yes Comments:trying to quit. provider to dependency counselor Alcohol Use Standard Drinks/Week Comments Never [...] Assigned at Female 05/03/2024 9:57 AM QUALITY LAB ASSOC Legal Sex Female 4:45 PM CDT Gender Identity Female 05/03/2024 9:57 AM QUALITY LAB ASSOC Sexual Orientation Not on file Last Filed [...] Description 02/05/2025 12:40 PM CDT Office Visit [facility] Family & Internal [address] [phone] Starla Arshad DO [address] [place] [address] 02/05/2025 1:20 PM CDT Office Visit [facility] Family & Internal [address] [phone] Starla Arshad, DO [address] [place] [address] 03/22/2025 11:45 AM QUALITY LAB ASSOC Office Visit [facility]-[address] [phone] Abhi Aguilar MD 3 [facility] [address] [place] [phone] Health Maintenance Due Date Last Done [...] 12/31/2022, 01/12/2020, Additional history exists PHQ-2 (Physician [place]) Completed 05/03/2024 Meningococcal B Vaccine Aged Out [...] discharge from hospital 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 Anatomical Region Laterality Modality Other 11/01/2024 [employer] [employer] [facility] Scanned SCANNING Final Resu lt * PROCEDURE GENERIC (SCAN ORDER) (11/01/2024) 11/01/2024 Result [facility] Scanned SCANNING Final Resu lt * PROCEDURE GENERIC (SCAN ORDER) (10/25/2024) 10/25/2024 [employer] [facility] Scanned SCANNING Final Resu lt * PROCEDURE GENERIC (SCAN ORDER) (10/18/2024) 10/18/2024 [employer] [facility] Scanned SCANNING Final Resu lt * PROCEDURE GENERIC (SCAN ORDER) (10/18/2024) 10/18/[address] [facility] Group Scanned SCANNING Final Resu lt * PROCEDURE GENERIC (SCAN ORDER) (10/11/2024) 10/11/[address] [facility] Group Scanned SCANNING Final Resu lt * OUTSIDE LAB (SCAN ORDER) (10/10/2024) Only the most recent of2 resultswithin the time period is included. 10/10/[address] [facility] Group Scanned SCANNING Final Resu lt * PROCEDURE GENERIC (SCAN ORDER) (10/04/2024) 10/04/[address] [facility] Scanned SCANNING Final Resu lt * PROCEDURE GENERIC (SCAN ORDER) (10/04/2024) 10/04/[address] [facility] Scanned SCANNING Final Resu lt * PROCEDURE GENERIC (SCAN ORDER) (10/04/2024) 10/04/[address] [facility] Group Scanned SCANNING Final Resu lt * PROCEDURE GENERIC (SCAN ORDER) (09/27/2024) 09/27/[address] [facility] Scanned SCANNING Final Resu lt * PROCEDURE GENERIC (SCAN ORDER) (09/27/2024) 09/27/[address] [facility] Scanned SCANNING Final Resu lt * HEPATITIS C ANTIBODY (04/05/2023 8:24 AM [facility]) HEPATITIS C AB NON-REACTI VE NON-REACT RAUL 04/05/2023 6:53 PM [facility] LAB ASSOC [facility] Comment: ANTIBODIES TO HCV NOT DETECTED. DOES NOT EXCLUDE THE POSSIBILITY OF EXPOSURE TO HCV. 04/05/2023 8:24 AM [facility] Starla Arshad DO LABORATORY Final Re sult [facility] [address] [place] [address], [place] [phone] * MG DIAG W WILMER BILAT DIGI [...] Examination: Bilateral digital diagnostic mammogram with CAD. [id number] Clinical history: Left breast lump and tenderness. [...] demonstrate any discrete solid or cystic mass. Wilkinson appearing tissue architecture is demonstrated. Physical exam surveillance is advised with any further evaluation at this point guided on that basis. From a mammographic standpoint, routine follow-up in one year would seem adequate. These findings were discussed with the patient. Starla Arshad DO MAMMO Final Re sult from Last 3 Months or Most Recently Relevant to Health Maintenance Insurance [facility] MEDICAID Advance Directives * Full Code (Latest Code Status on File) Date Activated Date Inactivated Comments 09/22/2020 12:40 PM 09/23/2020 12:52 PM Care Teams Skein Tier Relationship Specialty Start Date End Date Starla Arshad DO [address] [place] [phone] PCP - General FAMILY PRACTICE 08/19/20
--- OUTSIDE RECORDS SUMMARY | 2024-12-14 01:25 | XMS_ITS | Encounter Summary ---
Author Organization [facility] Address [facility] [place] [address] Care Team Providers Care Corporation Secretary Name Role Phone Jimmy Doyle Primary Care Provider + Encounter Details Date Type Department Care Team (Late st Contact Info) Description 01/11/2022 Abstract [facility] [address] Doni Moore MA Social History Tobacco Use Types Packs/Day Years Used Date Smoking Tobacco: Every Day Cigarettes 1 55.3 Started: [birth year]/19/1967 Smokeless Tobacco: Never Comments:trying to quit. 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 Alcohol Use Standard Drinks/Week Comments Never [...] Sex Assigned at Female 05/03/2024 9:57 AM IT PROJECT LEAD Legal Sex Female 4:45 PM CDT Gender Identity Female 05/03/2024 9:57 AM IT PROJECT LEAD Sexual Orientation Not on file COVID-19 Exposure [...] Description 02/05/2025 12:40 PM CDT Office Visit [facility] Family & Internal Medicine [facility] [address] [place] [address] Jimmy Doyle DO [address] [place] [address] 02/05/2025 1:20 PM CDT Office Visit [facility] Family & Internal Medicine [facility] [address] [place] [address] Jimmy Doyle DO [address] [place] [address] 03/22/2025 11:45 AM IT PROJECT LEAD Office Visit [facility] [phone] Abhi Aguilar MD 3 [facility] [address] [place] [phone] documented as of this encounter Goals [...] Total Score: 8 05/13/19 22 10:36 AM IT PROJECT LEAD documented as of this encounter Care Teams Corporation Secretary Relationship Specialty Start Date End Date Jimmy Doyle DO [address] [place] [id number] PCP - General FAMILY PRACTICE 08/19/20 documented as of this encounter
[2024-12-14 02:05] LABS: Add Urine Microscopic? YES; Appearance Urine Clear (Clear); Glucose Urine UA Negative (Negative); Leukocyte Esterase Ur Trace LEU/UL (Negative); Nitrate Urine Negative (Negative); Non Pathogenic Casts 0-2; Specific Grav Ur 1.013 (1.001-1.035)
[2024-12-14] MEDS: CEPHALEXIN 500 MG CAPSULE PO (02:08)
[2024-12-14] MEDS: PHENAZOPYRIDINE HCL 100 MG TABLET 200 MG PO (02:09)
--- NOTE | 2024-12-14 02:20 | ED.GENADULT ---
HPI - General Adult General Chief complaint: Urogenital-Female Stated complaint: I need a catheter CARL Time Seen by Provider: 12/14/24 01:07 History of Present Illness HPI narrative: This is a 69-year-old female who had a urologic procedure performed earlier today presenting with concerns about urinary retention. Patient has had has the urge to void but cannot initiating stream. She believes that she has urinary retention. She has some suprapubic tenderness but no fullness. No fevers nausea vomiting or diarrhea. Related Data Home Medications ?Medication ?Instructions ?Recorded ?Confirmed ?Last Taken ?Type aspirin 81 mg tablet,delayed 81 mg PO DAILY 04/05/19 12/13/24 12/05/24 History release (Aspir-) Held on 12/13/24. Instructions: Resume on 12/14/24. atorvastatin 40 mg tablet (Lipitor) 40 mg PO HS 01/10/21 11/29/24 10/24/24 History isosorbide mononitrate 30 mg 90 mg PO QACLUNCH 01/10/21 11/29/24 10/24/24 History tablet,extended release 24 hr nitroglycerin 0.4 mg sublingual 0.4 mg sublingual PRN CHEST PAIN 01/10/21 11/29/24 05/16/24 History tablet potassium chloride 10 mEq 10 meq PO DAILY 01/10/21 11/29/24 10/24/24 History tablet,extended release (K-Tab) venlafaxine 150 mg See Rx Instructions .Route .COMPLEX 03/02/22 12/13/24 12/13/24 History capsule,extended release 24 hr (Effexor XR) cholecalciferol (vitamin D3) 125 125 mcg PO DAILY 11/12/22 12/13/24 12/05/24 History mcg (5,000 unit) tablet (Vitamin D3) hydrocodone 10 mg-acetaminophen 1 tablet PO PRN PRN pain 06/18/24 12/13/24 12/13/24 History 325 mg tablet oxybutynin chloride 10 mg 10 mg PO HS 06/18/24 11/29/24 10/24/24 History tablet,extended release 24 hr alprazolam 0.5 mg tablet 0.5 mg PO TID PRN anxiety 07/30/24 12/13/24 12/13/24 History carvedilol 12.5 mg tablet 12.5 mg PO BID 07/30/24 12/13/24 12/13/24 History icosapent ethyl 1 gram capsule 2 g PO BID 09/12/24 11/29/24 10/24/24 History quetiapine 300 mg tablet (Seroquel) 300 mg PO HS 09/12/24 11/29/24 10/24/24 History tolterodine 2 mg tablet 2 mg PO Q12H 09/12/24 11/29/24 10/24/24 History Allergies Allergy/AdvReac Type Severity Reaction Status Date / Time Penicillins Allergy Unknown Rash Verified 12/14/24 00:47 Sulfa (Sulfonamide Allergy Unknown Hives Verified 12/14/24 00:47 Antibiotics) sulfanilamide Allergy Unknown Hives Verified 12/14/24 00:47 ciprofloxacin AdvReac Intermediate Shakiness Verified 12/14/24 00:47 amitriptyline (From Elavil) AdvReac Unknown Confusion Verified 12/14/24 00:47 codeine AdvReac Unknown N/V Verified 12/14/24 00:47 tetracycline AdvReac Unknown Nausea Verified 12/14/24 00:47 doxycycline AdvReac Nausea and Verified 12/14/24 00:47 Vomiting PMFSH Past Medical History Medical History Chronic, continuous use of opioids Bipolar disorder, unspecified CAD (coronary artery disease) Hypertension Emphysema lung Screening for colon cancer Screening for breast cancer Postmenopausal Hx of pancreatitis Depression Kidney stones Kidney disease Urinary frequency High cholesterol Pneumonia Vision abnormalities Weight gain Cholecystectomy planned Anxiety Surgical History Surgical History H/O excision of mass 11/22/22 Excision of 5 cm perianal cyst History of cholecystectomy Hx of tonsillectomy History of partial hysterectomy H/O colonoscopy History of esophagogastroduodenoscopy (EGD) History of laryngoscopy Family History Family History Sibling Patient's brother is in good health Dementia Mother Family history of coronary artery disease Acute myocardial infarction Father Patient's father is Acute myocardial infarction Cerebrovascular accident Unknown Heart disease Cerebrovascular accident Other Family history of mental disorder Social History Social History (Reviewed 08/28/25 @ 11:15 by DASHAWN Elmore Smoking packs per day: 1 Smoking cigarettes per day: 20.0 Years smoked: 50 Smoking pack-years: 50.00 Smoking status: Current every day smoker Tobacco type: cigarettes Second hand tobacco smoke exposure: No Alcohol intake: never Substance use: current Substance use type: marijuana Other substance usage details: Daily Last use: 03/02/22 Lack of Transportation: No Lack of Food: Never True Current Housing: I Have Housing Concerned About Future Housing: No Difficulty Paying Gas/Electric Bills: No Difficulty Paying for Meds: No Currently Unemployed: No Education: Decline to Answer Difficulty w/ Childcare or Family Care: No Living arrangements: alone Spiritual care concerns: No Exam Narrative: APPEARANCE: No apparent distress. Head: atraumatic. EYES: EOMI, NOSE: Atraumatic NECK: Trachea midline RESPIRATORY: No increased rate of breathing CTAB CARDIOVASCULAR: RRR, no peripheral edema ABDOMINAL: Mild tenderness in the suprapubic region without palpable mass, no guarding or rebound MUSCULOSKELETAl: No obvious deformities NEURO: Alert. Moving 4/4 extremities SKIN:: Warm, dry. Normal color PSYCHIATRIC: Normal affect Course Vital Signs Vital signs: Vital Signs Temperature 97.5 F L 12/14/24 00:48 Pulse Rate 93 12/14/24 00:48 Respiratory Rate 18 12/14/24 00:48 Blood Pressure 121/72 12/14/24 00:48 Pulse Oximetry 93 12/14/24 00:48 Oxygen Delivery Room Air 12/14/24 00:48 Temperature 97.5 F L 12/14/24 00:48 Pulse Rate 93 12/14/24 00:48 Respiratory Rate 18 12/14/24 00:48 Blood Pressure 121/72 12/14/24 00:48 Pulse Oximetry 93 12/14/24 00:48 Oxygen Delivery Room Air 12/14/24 00:48 Medical Decision Making [facility] Narrative Medical decision making narrative: -Course: 69-year-old female presenting with the urge to urinate after a urologic procedure. Bladder scan showed 65 cc in the bladder. Urge to urinate is most likely due to irritation from her procedure earlier today. She will be started on prophylactic Keflex. She has been given phenazopyridine. Patient can call urologist in the morning to arrange follow-up. -DDX includes but is not limited to: UTI, urinary retention, bladder/urethral irritation Vital Signs Vital Signs: Vital Signs Temperature 97.5 F L 12/14/24 00:48 Pulse Rate 93 12/14/24 00:48 Respiratory Rate 18 12/14/24 00:48 Blood Pressure 121/72 12/14/24 00:48 Pulse Oximetry 93 12/14/24 00:48 Oxygen Delivery Room Air 12/14/24 00:48 Temperature 97.5 F L 12/14/24 00:48 Pulse Rate 93 12/14/24 00:48 Respiratory Rate 18 12/14/24 00:48 Blood Pressure 121/72 12/14/24 00:48 Pulse Oximetry 93 12/14/24 00:48 Oxygen Delivery Room Air 12/14/24 00:48 Lab Data Labs: Lab Results 12/14/24 Range/Units 01:48 Urine Color Yellow (Yellow) Urine Appearance Clear (Clear) Urine pH 7.5 (5.0-9.0) Ur Specific [place] 1.013 (1.001-1.035) Urine Protein 2+ H (Negative) mg/dL Urine Glucose (UA) Negative (Negative) mg/dL Urine Ketones Negative (Negative) mg/dL Ur Blood (Man) 2+ H (Negative) Urine Nitrate Negative (Negative) Urine Bilirubin Negative (Negative) Urine Urobilinogen 1.0 (<2.0) mg/dL Leukocyte Esterase Rfl Trace H (Negative) BRITTANI/UL Urine RBC 21-50 H (0-2) /hpf Urine WBC 0-5 (0-3) /hpf Ur Squamous Epith Cells None seen (Few) /hpf Urine Bacteria None seen /hpf Urine Casts 0-2 Discharge Plan Discharge Clinical Impression: Bladder irritation Patient Disposition: Home Condition: Stable Instructions: Antibiotic Form, Dysuria (ED) Additional Instructions: You were seen in the emergency department for bladder irritation. This is likely a result of the urologic procedure he had done earlier today. Please complete a course of Keflex. Please call the clinic of Dr. Salinas tomorrow morning to arrange close follow-up. If you develop fevers, inability to urinate, severe abdominal pain please return to the ED for re-evaluation. Patient Language: Congolese Prescriptions: New cephalexin 500 mg capsule 500 mg PO Q12H Qty: 10 0RF phenazopyridine 200 mg tablet 200 mg PO TID Qty: 6 0RF No Action atorvastatin [Lipitor] 40 mg Tablet 40 mg PO HS isosorbide mononitrate 30 mg Tablet Extended Release 24 Hr 90 mg PO QACLUNCH potassium chloride [K-Tab] 10 mEq Tablet Extended Release 10 meq PO DAILY nitroglycerin 0.4 mg Tablet, Sublingual 0.4 mg SUBLINGUAL PRN aspirin [Aspir-81] 81 mg tablet,delayed release (DR/EC) 81 mg PO DAILY Patient Comments: LAST DOSE 09/19/24 ON HOLD venlafaxine [Effexor XR] 150 mg capsule,extended release 24hr See Rx Instructions .ROUTE .COMPLEX Patient Comments: QAM Rx Instructions: TAKE 1 CAPSULE BY MOUTH DAILY ranolazine [Ranexa] 500 mg Tablet Extended Release 12 Hr 500 mg PO Q12HR 30 Days Qty: 60 0RF oxybutynin chloride 10 mg tablet extended release 24hr 10 mg PO HS Rx Instructions: Take 1 tablet (10 mg total) by mouth nightly at bedtime. hydrocodone-acetaminophen 10-325 mg tablet 1 tablet PO PRN PRN (Reason: pain) Rx Instructions: Take 1 tablet by mouth every 8 (eight) hours as needed. Indications: Chronic Pain docusate sodium [Colace] 100 mg capsule 100 mg PO DAILY Qty: 30 0RF cholecalciferol (vitamin D3) [Vitamin D3] 125 mcg (5,000 unit) Tablet 125 mcg PO DAILY alprazolam 0.5 mg tablet 0.5 mg PO TID PRN (Reason: anxiety) carvedilol 12.5 mg tablet 12.5 mg PO BID Rx Instructions: must administer with a meal/food ondansetron 4 mg tablet,disintegrating 4 mg PO Q6H PRN (Reason: nausea and vomiting) Qty: 10 0RF tolterodine 2 mg tablet 2 mg PO Q12H icosapent ethyl 1 gram capsule 2 g PO BID Rx Instructions: Take 2 capsules (2 g total) by mouth 2 (two) times daily with meals. quetiapine [Seroquel] 300 mg tablet 300 mg PO HS ondansetron 4 mg tablet,disintegrating 4 mg PO Q8H PRN (Reason: nausea and vomiting) Qty: 20 1RF hydrochlorothiazide 25 mg tablet 25 mg PO DAILY Qty: 90 1RF Patient Comments: QAM Follow-up/Referrals: Vivek,DO Jimmy [Primary Care Provider]
[2024-12-14 02:46] VITALS: BP 108/57; PULSE 65; RESP 14; TEMP 36.8; O2SAT 99
== END 2024-12-14 02:56 | disposition home or self-care (01) ==
PROVIDERS: Emergency Provider Emergency Medicine; PCP Student in an Organized Health Care Education/Training Program
DX: N32.89 Other specified disorders of bladder (principal); Z98.890 Other specified postprocedural states; I25.10 Atherosclerotic heart disease of native coronary artery without angina pectoris; I10 Essential (primary) hypertension; J43.9 Emphysema, unspecified; E78.00 Pure hypercholesterolemia, unspecified; N28.9 Disorder of kidney and ureter, unspecified; F41.9 Anxiety disorder, unspecified; F32.A Depression, unspecified; F17.210 Nicotine dependence, cigarettes, uncomplicated; Z87.01 Personal history of pneumonia (recurrent); Z87.442 Personal history of urinary calculi; Z90.49 Acquired absence of other specified parts of digestive tract; Z90.711 Acquired absence of uterus with remaining cervical stump
CPT/HCPCS: 81001; 99283; A9270

== ENCOUNTER 2025-03-03 13:41 | Emergency (ER) | payer MEDICARE, MEDICAID, SELFPAY ==
--- OUTSIDE RECORDS SUMMARY | 2020-12-24 03:08 | XMS_ITS | Continuity of Care Document ---
Author Organization [facility] Address [address] [place] [address] [address] [place] [address] Phone Care Team Providers Care Kieselguhr Regenerator Operator Name Role Phone Idris PT, DPT, Ave Unavailable Unavailable Procedures Procedure Date Therapeutic Activities Neuromuscular Re-Ed Therapeutic Exercise Hot or Cold Pack PT Evaluation Low Complexity Therapeutic Activities Neuromuscular Re-Ed Advance Directives Directive Yes / No Effective Date File Name No Information Encounters Encounter Description Practice Location Reason(s) For Visit Diagnoses Date Provider Providers Copied on Encounter [facility] [address], [id number], tel:[phone] [place] No Information Sep-0 1 Idris Dorado. . [facility] [address] [place] [address], [id number], tel:[phone] [place] No Information Sep-0 2- 1 Idris Dorado. . Referring Provider: Jimmy Doyle , [address] [place] [address], [address]. tel:[phone], [id number], tel:[phone] [place] No Information Nov-3 0-202 1 Idris Dorado. . Referring Provider: Jimmy Doyle , [address] [place] [address], [address]. tel:[phone] Family History Family Member Type Diagnosis Age At Onset No Information Payers Payer name Insurance type Covered constitution party ID Authorcesiliapauline jamietristian(s) Medicare [place] [id number] Medicaid OON Write Off CI 00 Social History Type Description Quantity Date Captured Comments Sex Female Smoking Status No Information Chief Complaint And Reason For Visit No Information Reason For Referral Reason For Referral No Information Plan Of Treatment Date Type Action Status Goal Tobacco cessation counseling completed Goal Tobacco Cessation Counseling completed Referral Ordered: Weight management: Referral to physician timeframe: 1 Month. (related to Overweight) ordered Referral Ordered: PCP timeframe: 1 week. (related to Overweight) ordered History Of Present Illness Encounter Date Complaint History Of Prese nt Illness No Information Functional Status Date Functional Assessmen t No Information Instructions Date Instruction Additional Infor mation No Information Assessments Type Assessment Date No Information Patient Care Teams Name Effective Dates (start - stop) Status Members No Information
--- OUTSIDE RECORDS SUMMARY | 2020-12-24 03:08 | XMS_ITS | Continuity of Care Document ---
Author Organization [facility] Address [address] [place] [address] [address] [place] [address] Phone Care Team Providers Care Fruit Checker Name Role Phone Idris PT, DPT, Ave Unavailable Unavailable Procedures Procedure Date Therapeutic Activities Neuromuscular Re-Ed Therapeutic Exercise Hot or Cold Pack PT Evaluation Low Complexity Therapeutic Activities Neuromuscular Re-Ed Advance Directives Directive Yes / No Effective Date File Name No Information Encounters Encounter Description Practice Location Reason(s) For Visit Diagnoses Date Provider Providers Copied on Encounter [facility] [address], [id number], tel:[phone] [place] No Information Sep-0 1 Idris Dorado. . [facility] [address] [place] [address], [id number], tel:[phone] [place] No Information Sep-0 2- 1 Idris Dorado. . Referring Provider: Jimmy Doyle , [address] [place] [address], [id number]. tel:[phone], [id number], tel:[phone] [place] No Information Nov-3 0-202 1 Idris Dorado. . Referring Provider: Jimmy Doyle , [address] [place] [address], [address]. tel:[phone] Family History Family Member Type Diagnosis Age At Onset No Information Payers Payer name Insurance type Covered constitution party ID Authorcesiliapauline jamietristian(s) Medicare [place] [id number] Medicaid OON Write Off CI 00 Social [...]
--- OUTSIDE RECORDS SUMMARY | 2020-12-24 03:08 | XMS_ITS | Continuity of Care Document ---
Author Organization [facility] Address [address] [place] [address] [address] [place] [address] Phone Care Team Providers Care Cable Weaver Name Role Phone Idris PT, DPT, Ave Unavailable Unavailable Procedures Procedure Date Therapeutic Activities Neuromuscular Re-Ed Therapeutic Exercise Hot or Cold Pack PT Evaluation Low Complexity Therapeutic Activities Neuromuscular Re-Ed Advance Directives Directive Yes / No Effective Date File Name No Information Encounters Encounter Description Practice Location Reason(s) For Visit Diagnoses Date Provider Providers Copied on Encounter [facility] [address], [id number], tel:[phone] [place] No Information Sep-0 1 Idris Dorado. . [facility] [address] [place] [address], [id number], tel:[phone] [place] No Information Sep-0 2- 1 Idris Dorado. . Referring Provider: Jimmy Doyle , [address] [place] [address], [id number]. tel:[phone], [id number], tel:[phone] [place] No Information Nov-3 0-202 1 Idris Dorado. . Referring Provider: Jimmy Doyle , [address] [place] [address], [address]. tel:[phone] Family History Family Member Type Diagnosis Age At Onset No Information Payers Payer name Insurance type Covered alliance party ID Authorcesiliapauline jamietristian(s) Medicare [place] [id number] Medicaid OON Write Off CI 00 Social [...]
--- OUTSIDE RECORDS SUMMARY | 2020-12-24 03:08 | XMS_ITS | Continuity of Care Document ---
Author Organization [facility] Address [address] [place] [address] [address] [place] [address] Phone Care Team Providers Care Deputy City Clerk Name Role Phone Idris PT, DPT, Ave Unavailable Unavailable Procedures Procedure Date Therapeutic Activities Neuromuscular Re-Ed Therapeutic Exercise Hot or Cold Pack PT Evaluation Low Complexity Therapeutic Activities Neuromuscular Re-Ed Advance Directives Directive Yes / No Effective Date File Name No Information Encounters Encounter Description Practice Location Reason(s) For Visit Diagnoses Date Provider Providers Copied on Encounter [facility] [address], [id number], tel:[phone] [place] No Information Sep-0 [address] [facility] [address] [place] [address], [id number], tel:[phone] [place] No Information Sep-0 2- 1 Idris Dorado. . Referring Provider: Jimmy Doyle , [address] [place] [address], [id number]. tel:[phone], [id number], tel:[phone] [place] No Information Nov-3 0-202 1 Idris Dorado. . Referring Provider: Jimmy Doyle , [address] [place] [address], [address]. tel:[phone] Family History Family Member Type Diagnosis Age At Onset No Information Payers Payer name Insurance type Covered libertarian ID Authorcesiliapauline jamietristian(s) Medicare [place] [id number] Medicaid OON Write Off CI 00 Social [...]
--- OUTSIDE RECORDS SUMMARY | 2020-12-24 03:08 | XMS_ITS | Continuity of Care Document ---
Author Organization [facility] Address [address] [place] [address] [address] [place] [address] Phone Care Team Providers Care Water Gas Operator Name Role Phone Idris PT, DPT, Ave Unavailable Unavailable Procedures Procedure Date Therapeutic Activities Neuromuscular Re-Ed Therapeutic Exercise Hot or Cold Pack PT Evaluation Low Complexity Therapeutic Activities Neuromuscular Re-Ed Advance Directives Directive Yes / No Effective Date File Name No Information Encounters Encounter Description Practice Location Reason(s) For Visit Diagnoses Date Provider Providers Copied on Encounter [facility] [address], [id number], tel:[phone] [place] No Information Sep-0 1 Idris Dorado. . [facility] [address] [place] [address], [id number], tel:[phone] [place] No Information Sep-0 2- 1 Idris Dorado. . Referring Provider: Jimmy Doyle , [address] [place] [address], [address]. tel:[phone], [id number], tel:[phone] [place] No Information Nov-3 0-202 1 Idris Dorado. . Referring Provider: Jimmy Doyle , [address] [place] [address], [address]. tel:[phone] Family History Family Member Type Diagnosis Age At Onset No Information Payers Payer name Insurance type Covered green party ID Authorcesiliapauline jamietristian(s) Medicare [place] [id number] Medicaid OON Write Off CI 00 Social [...]
--- OUTSIDE RECORDS SUMMARY | 2020-12-24 03:08 | XMS_ITS | Continuity of Care Document ---
Author Organization [facility] Address [address] [place] [address] [address] [place] [address] Phone Care Team Providers Care Folding Machine Feeder Name Role Phone Idris PT, DPT, Ave Unavailable Unavailable Procedures Procedure Date Therapeutic Activities Neuromuscular Re-Ed Therapeutic Exercise Hot or Cold Pack PT Evaluation Low Complexity Therapeutic Activities Neuromuscular Re-Ed Advance Directives Directive Yes / No Effective Date File Name No Information Encounters Encounter Description Practice Location Reason(s) For Visit Diagnoses Date Provider Providers Copied on Encounter [facility] [address], [id number], tel:[phone] [place] No Information Sep-0 1 Idris Dorado. . [facility] [address] [place] [address], [id number], tel:[phone] [place] No Information Sep-0 2- 1 Idris Dorado. . Referring Provider: Jimmy Doyle , [address] [place] [address], [address]. tel:[phone], [id number], tel:[phone] [place] No Information Nov-3 0-202 1 Idris Dorado. . Referring Provider: Jimmy Doyle , [address] [place] [address], [address]. tel:[phone] Family History Family Member Type Diagnosis Age At Onset No Information Payers Payer name Insurance type Covered constitution party ID Authorcesiliapualine jamietristian(s) Medicare [place] [id number] Medicaid OON Write Off CI 00 Social [...]
--- OUTSIDE RECORDS SUMMARY | 2020-12-24 03:08 | XMS_ITS | Continuity of Care Document ---
Author Organization [facility] Address [address] [place] [address] [address] [place] [address] Phone Care Team Providers Care Special Services Coordinator Name Role Phone Idris PT, DPT, Ave Unavailable Unavailable Procedures Procedure Date Therapeutic Activities Neuromuscular Re-Ed Therapeutic Exercise Hot or Cold Pack PT Evaluation Low Complexity Therapeutic Activities Neuromuscular Re-Ed Advance Directives Directive Yes / No Effective Date File Name No Information Encounters Encounter Description Practice Location Reason(s) For Visit Diagnoses Date Provider Providers Copied on Encounter [facility] [address], [id number], tel:[phone] [place] No Information Sep-0 1 Idris Dorado. . [facility] [address] [place] [address], [id number], tel:[phone] [place] No Information Sep-0 2- 1 Idris Dorado. . Referring Provider: Jimmy Doyle , [address] [place] [address], [id number]. tel:[phone], [id number], tel:[phone] [place] No Information Nov-3 0-202 1 Idris Dorado. . Referring Provider: Jimmy Doyle , [address] [place] [address], [address]. tel:[phone] Family History Family Member Type Diagnosis Age At Onset No Information Payers Payer name Insurance type Covered democrat ID Authorcesiliapauline jamietristian(s) Medicare [place] [id number] Medicaid OON Write Off CI 00 Social [...]
--- OUTSIDE RECORDS SUMMARY | 2020-12-24 03:08 | XMS_ITS | Continuity of Care Document ---
Author Organization [facility] Address [address] [place] [address] [address] [place] [address] Phone Care Team Providers Care Emergency Medical Service Manager Name Role Phone Idris PT, DPT, Ave Unavailable Unavailable Procedures Procedure Date Therapeutic Activities Neuromuscular Re-Ed Therapeutic Exercise Hot or Cold Pack PT Evaluation Low Complexity Therapeutic Activities Neuromuscular Re-Ed Advance Directives Directive Yes / No Effective Date File Name No Information Encounters Encounter Description Practice Location Reason(s) For Visit Diagnoses Date Provider Providers Copied on Encounter [facility] [address], [id number], tel:[phone] [place] No Information Sep-0 1 Idris Dorado. . [facility] [address] [place] [address], [id number], tel:[phone] [place] No Information Sep-0 2- 1 Idris Dorado. . Referring Provider: Jimmy Doyle , [address] [place] [address], [id number]. tel:[phone], [id number], tel:[phone] [place] No Information Nov-3 0-202 1 Idris Dorado. . Referring Provider: Jimmy Doyle , [address] [place] [address], [id number]. tel:[phone] Family History Family Member Type Diagnosis Age At Onset No Information Payers Payer name Insurance type Covered republican ID Authorcesiliapauline jamietristian(s) Medicare [place] [id number] Medicaid OON Write Off CI 00 Social [...]
--- OUTSIDE RECORDS SUMMARY | 2020-12-24 03:08 | XMS_ITS | Continuity of Care Document ---
Author Organization [facility] Address [address] [place] [address] [address] [place] [address] Phone Care Team Providers Care Scabbler Name Role Phone Idris PT, KEYON, Ave Unavailable Unavailable Procedures Procedure Date Therapeutic Exercise Neuromuscular Re-Ed Therapeutic Activities Hot or Cold Pack Neuromuscular Re-Ed Therapeutic Activities PT Evaluation Low Complexity Advance Directives Directive Yes / No Effective Date File Name No Information Encounters Encounter Description Practice Location Reason(s) For Visit Diagnoses Date Provider Providers Copied on Encounter [facility] [address], [id number], tel:[phone] [place] No Information Sep-0 1 Idris Dorado. . [facility] [address] [place] [address], [id number], tel:[phone] [place] No Information Sep-0 2 1 Idris Dorado. . Referring Provider: Jimmy Doyle , [address] [place] [address], [id number]. tel:[phone], [id number], tel:[phone] [place] No Information 0- 1 Idris Dorado. . Referring Provider: Jimmy Doyle , [address] [place] [address], [id number]. tel:[phone] Family History Family Member Type Diagnosis Age At Onset No Information Payers Payer name Insurance type Covered democrat ID Authorcesiliapauline jamietristian(s) Medicare [place] [id number] Medicaid OON Write Off CI 00 Social [...]
--- OUTSIDE RECORDS SUMMARY | 2020-12-24 03:08 | XMS_ITS | Continuity of Care Document ---
Author Organization [facility] Address [address] [place] [address] [address] [place] [address] Phone Care Team Providers Care Lead Manufacturing Technician Name Role Phone Idris PT, DPT, Ave Unavailable Unavailable Procedures Procedure Date Therapeutic Activities Neuromuscular Re-Ed Therapeutic Exercise Hot or Cold Pack PT Evaluation Low Complexity Therapeutic Activities Neuromuscular Re-Ed Advance Directives Directive Yes / No Effective Date File Name No Information Encounters Encounter Description Practice Location Reason(s) For Visit Diagnoses Date Provider Providers Copied on Encounter [facility] [address], [id number], tel:[phone] [place] No Information Sep-0 [address] . [facility] [address] [place] [address], [id number], tel:[phone] [place] No Information Sep-0 2- 1 Idris Dorado. . Referring Provider: Jimmy Doyle , [address] [place] [address], [id number]. tel:[phone], [id number], tel:[phone] [place] No Information Nov-3 0-202 1 Idris Dorado. . Referring Provider: Jimmy Doyle , [address] [place] [address], [id number]. tel:[phone] Family History Family Member Type Diagnosis Age At Onset No Information Payers Payer name Insurance type Covered republican ID Authorcesiliapauline jamietristian(s) Medicare [place] [id number] Medicaid OON Write Off CI 00 Social [...]
--- OUTSIDE RECORDS SUMMARY | 2020-12-24 03:08 | XMS_ITS | Continuity of Care Document ---
Author Organization [facility] Address [address] [place] [address] [address] [place] [address] Phone Care Team Providers Care Waiter/Waitress Captain Name Role Phone Idris PT, DPT, Ave Unavailable Unavailable Procedures Procedure Date Therapeutic Activities Neuromuscular Re-Ed Therapeutic Exercise Hot or Cold Pack PT Evaluation Low Complexity Therapeutic Activities Neuromuscular Re-Ed Advance Directives Directive Yes / No Effective Date File Name No Information Encounters Encounter Description Practice Location Reason(s) For Visit Diagnoses Date Provider Providers Copied on Encounter [facility] [address], [id number], tel:[phone] [place] No Information Sep-0 1 Idris Dorado. . [facility] [address] [place] [address], [id number], tel:[phone] [place] No Information Sep-0 2- 1 Idris Dorado. . Referring Provider: Jimmy Doyle , [address] [place] [address], [id number]. tel:[phone], [id number], tel:[phone] [place] No Information Nov-3 0-202 1 Idris Dorado. . Referring Provider: Jimmy Doyle , [address] [place] [address], [id number]. tel:[phone] Family History Family Member Type Diagnosis Age At Onset No Information Payers Payer name Insurance type Covered democrat ID Authorcesiliapauline jamietristian(s) Medicare [place] [id number] Medicaid OON Write Off CI 00 Social [...]
--- OUTSIDE RECORDS SUMMARY | 2020-12-24 03:08 | XMS_ITS | Continuity of Care Document ---
Author Organization [facility] Address [address] [place] [address] [address] [place] [address] Phone Care Team Providers Care Compress Engineer Name Role Phone Idris PT, DPT, Ave Unavailable Unavailable Procedures Procedure Date Therapeutic Activities Neuromuscular Re-Ed Therapeutic Exercise Hot or Cold Pack PT Evaluation Low Complexity Therapeutic Activities Neuromuscular Re-Ed Advance Directives Directive Yes / No Effective Date File Name No Information Encounters Encounter Description Practice Location Reason(s) For Visit Diagnoses Date Provider Providers Copied on Encounter [facility] [address], [id number], tel:[phone] [place] No Information Sep-0 1 Idirs Dorado. . [facility] [address] [place] [address], [id number], tel:[phone] [place] No Information Sep-0 2- 1 Idris Dorado. . Referring Provider: Jimmy Doyle , [address] [place] [address], [id number]. tel:[phone], [id number], tel:[phone] [place] No Information Nov-3 0-202 1 Idris Dorado. . Referring Provider: Jimmy Doyle , [address] [place] [address], [id number]. tel:[phone] Family History Family Member Type Diagnosis Age At Onset No Information Payers Payer name Insurance type Covered democrat ID Authorcesiliapauline jamietristian(s) Medicare [place] [id number] Medicaid OON Write Off CI 00 Social [...]
--- OUTSIDE RECORDS SUMMARY | 2020-12-24 03:08 | XMS_ITS | Continuity of Care Document ---
Author Organization [facility] Address [address] [place] [address] [address] [place] [address] Phone Care Team Providers Care Loan Coordinator Name Role Phone Idris PT, DPT, Ave Unavailable Unavailable Procedures Procedure Date Therapeutic Activities Neuromuscular Re-Ed Therapeutic Exercise Hot or Cold Pack PT Evaluation Low Complexity Therapeutic Activities Neuromuscular Re-Ed Advance Directives Directive Yes / No Effective Date File Name No Information Encounters Encounter Description Practice Location Reason(s) For Visit Diagnoses Date Provider Providers Copied on Encounter [facility] [address], [id number], tel:[phone] [place] No Information Sep-0 1 Idris Dorado. . [facility] [address] [place] [address], [id number], tel:[phone] [place] No Information Sep-0 2- 1 Idris Dorado. . Referring Provider: Jimmy Doyle , [address] [place] [address], [id number]. tel:[phone], [id number], tel:[phone] [place] No Information Nov-3 0-202 1 Idris Dorado. . Referring Provider: Jimmy Doyle , [address] [place] [address], [id number]. tel:[phone] Family History Family Member Type Diagnosis Age At Onset No Information Payers Payer name Insurance type Covered libertarian ID Authorcesiliapauline jamietristian(s) Medicare [place] [id number] Medicaid OON Write Off CI 00 Social [...]
--- OUTSIDE RECORDS SUMMARY | 2020-12-24 03:08 | XMS_ITS | Continuity of Care Document ---
Author Organization [facility] Address [address] [place] [address] [address] [place] [address] Phone Care Team Providers Care Pupil Personnel Services Director Name Role Phone Idris PT, DPT, Ave Unavailable Unavailable Procedures Procedure Date Therapeutic Activities Neuromuscular Re-Ed Therapeutic Exercise Hot or Cold Pack PT Evaluation Low Complexity Therapeutic Activities Neuromuscular Re-Ed Advance Directives Directive Yes / No Effective Date File Name No Information Encounters Encounter Description Practice Location Reason(s) For Visit Diagnoses Date Provider Providers Copied on Encounter [facility] [address], [id number], tel:[phone] [place] No Information Sep-0 1 Idris Dorado. . [facility] [address] [place] [address], [id number], tel:[phone] [place] No Information Sep-0 2- 1 Idris Dorado. . Referring Provider: Jimmy Doyle , [address] [place] [address], [id number]. tel:[phone], [id number], tel:[phone] [place] No Information Nov-3 0-202 1 Idris Dorado. . Referring Provider: Jimmy Doyle , [address] [place] [address], [id number]. tel:[phone] Family History Family Member Type Diagnosis Age At Onset No Information Payers Payer name Insurance type Covered libertarian ID Authorcesiliapauline jamietristian(s) Medicare [place] [id number] Medicaid OON Write Off CI 00 Social [...]
--- NOTE | ~2025-03-03 | CT_ITS ---
Jeniffer Weller EXAMINATION: CT abdomen pelvis w con COMPARISON: None HISTORY: abdominal pain TECHNIQUE: Axial images were obtained through the abdomen, pelvis post administration of IV contrast. Oral contrast was also administered. Coronal reconstruction images were obtained from the axial views. CT scan performed using dose optimization techniques including the following automated exposure control; adjustment of mA and/or kV; use of iterative reconstruction technique. Automatic exposure control was used to reduce radiation dose. Permanent radiation dose record is archived to PACS. FINDINGS: CT abdomen: LUNG BASES: The lung bases are clear. The visualized portions of the heart and pericardium are unremarkable. LIVER: The main portal vein is patent. Mild intrahepatic biliary duct dilatation. SPLEEN: Unremarkable. KIDNEYS: Right Kidney: Unremarkable. No calculi. No hydronephrosis. Left Kidney: Unremarkable. No calculi. No hydronephrosis ADRENAL GLANDS: Unremarkable. PANCREAS: Mild pancreatic atrophy. GALLBLADDER/BILIARY: Post cholecystectomy. STOMACH AND ESOPHAGUS: There is thickening of the distal stomach with mild hyperemia. BOWEL/MESENTERY: No colitis or diverticulitis. Appendix normal. Nonspecific fluid-filled loops of large bowel. No thickening or dilated loops of small bowel. No stranding within the mesentery. ADENOPATHY/RETROPERITONEUM: No lymphadenopathy. AORTA/VASCULATURE: Normal caliber aorta. FREE FLUID OR FREE AIR: No free fluid.. CT pelvis: SOLID ORGANS/REPRODUCTIVE: Post hysterectomy. No adnexal mass. BLADDER: Within normal limits. OSSEOUS STRUCTURES: No acute osseous abnormality.No suspicious lesions. OVERLYING SOFT TISSUES: Unremarkable. IMPRESSION: Mild gastritis. Findings Reviewed, dictated and finalized at location P. [employer] IMPRESSION: Mild gastritis. Findings
[2025-03-03 13:43] VITALS: BP 177/80; PULSE 76; RESP 18; TEMP 36.5; O2SAT 95
--- OUTSIDE RECORDS SUMMARY | 2025-03-03 13:44 | XMS_ITS | Encounter Summary ---
Author Organization [facility] Address [facility] [place] [address] Care Team Providers Care Perpetual Inventory Clerk Name Role Phone Jimmy Doyle Primary Care Provider + Encounter Details Date Type Department Care Team (Latest Contact Info) Description 02/21/2025 Scan [facility] Scanned, Doc Med Group Social History Tobacco Use Types Packs/Day Years Used Date Smoking Tobacco: Every Day Cigarettes 1 55.5 Started: 08/19/1967 Smokeless Tobacco: Never Comments:trying to quit. 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 Never 02/05/2025 Q2: How many drinks containi ng alcohol do you have on a typical day when you are drinking? Patient does not drink 5 Q3: How often do you have si x or more drinks on one occasion? Never 02/05/2025 Comments No Sex and Gender Information Value Date Recorded Sex Assigned at Female 05/03/2024 9:57 AM DIGITAL COORDINATOR Legal Sex Female 4:45 PM CDT Gender Identity Female 05/03/2024 9:57 AM DIGITAL COORDINATOR Sexual Orientation Not on file documented [...] Care Team (Late st Contact Info) Description 03/19/2025 11:20 AM DIGITAL COORDINATOR Office Visit [facility] Group Family & Internal Medicine - [address] [phone] [place] [address] [place] [address] 03/22/2025 11:45 AM DIGITAL COORDINATOR Office Visit [facility] [phone] Abhi Aguilar MD [address] [place] [phone] documented as of this encounter Goals Goal Patient Goal Type Associated Problems Recent Progress Patient-Stated? Author Patient will return to prior living situation and remain independent in ADLs upon discharge from hospital [facility] Daysi Nayak RN documented as of this encounter Visit Diagnoses Not on filedocumented in this encounter Additional Health Concerns Assessment Noted Time PHQ-9 Depression Total Score: 10 025 1:08 PM CDT documented as of this encounter Care Teams Perpetual Inventory Clerk Relationship Specialty Start Date End Date Jimmy Doyle DO [address] [place] [address] PCP - General FAMILY PRACTICE 08/19/20 documented as of this encounter
--- OUTSIDE RECORDS SUMMARY | 2025-03-03 13:45 | XMS_ITS | Encounter Summary ---
Author Organization [facility] Address [facility] [place] [address] Care Team Providers Care Foundry Patternmaker Name Role Phone Jimmy Doyle DO Primary Care Provider + Encounter Details Date Type Department Care Team (Late st Contact Info) Description 06/23/2022 Prep for Procedure [facility] [facility], [facility] [address] [place], [place] [phone] Flaquito Valera MD Three [facility]. [facility] [address] [place], [place] [id number] Social History Tobacco Use Types Packs/Day Years Used Date Smoking Tobacco: Every Day Cigarettes 1 55.5 Started: 08/19/1969 Smokeless Tobacco: Never Comments:trying to quit. 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 No / Unsure 06/24/2022 12:41 PM MANAGER OF TIRES SALES documented as of this encounter Functional Status [...] things Not at all 06/24/2022 1:19 PM MANAGER OF TIRES SALES Adia Mckenna MA Active Feeling down, depressed, or hopeless Nearly every day 06/24/2022 1:19 PM MANAGER OF TIRES SALES Adia Mckenna MA Active Patient Health Questionnaire-2 Score 3 06/24/2022 1:19 PM MANAGER OF TIRES SALES Adia Mckenna MA Active documented as of this encounter Mental Status * Because of a physical, mental, or emotional condition, do you have serious difficulty concentrating, remembering, or making decisions? Answer Entry Date Author Status No 09/21/2020 1:00 PM Meryl Boggs RN Active documented in this encounter Plan of Treatment Upcoming Encounters Date Type Department Care Team (Late st Contact Info) Description 03/19/2025 11:20 AM MANAGER OF TIRES SALES Office Visit [facility] Medical Group Family & Internal Medicine [address] [phone] Jimmy Doyle DO [address] [place] [address] 03/22/2025 11:45 AM MANAGER OF TIRES SALES Office Visit [facility] [address] [place] [address] Abhi Aguilar MD [address] [facility] [address] [place] [phone] documented as of this encounter Goals Goal [...] Total Score: 8 05/13/19 22 10:36 AM MANAGER OF TIRES SALES documented as of this encounter Care Teams Foundry Patternmaker Relationship Specialty Start Date End Date Jimmy Doyle DO [address] [place] [address] PCP - General FAMILY PRACTICE 08/19/20 documented as of this encounter
--- OUTSIDE RECORDS SUMMARY | 2025-03-03 13:45 | XMS_ITS | Encounter Summary ---
Author Organization [facility] Address [facility] [place] [address] Care Team Providers Care Production Control Specialist Name Role Phone New Referring, Provider Primary Care Provider Un available Jimmy Doyle DO Primary Care Provider + Encounter Details Date Type Department Care Team (Latest Contact Info) Description 12/12/2017 Abstract [facility] , Farhana Aguilera MD Social History Tobacco Use Types Packs/Day Years Used Date Smoking Tobacco: Never Assessed Comments Unknown Sex and Gender Information Value Date Recorded Sex Assigned at Female 05/03/2024 9:57 AM BORING MACHINE OPERATOR HORIZONTAL Legal Sex Female 4:45 PM CDT Gender Identity Female 05/03/2024 9:57 AM BORING MACHINE OPERATOR HORIZONTAL Sexual Orientation Not on file documented as of this encounter Plan of Treatment Upcoming Encounters Date Type Department Care Team (Late st Contact Info) Description 03/19/2025 11:20 AM BORING MACHINE OPERATOR HORIZONTAL Office Visit [facility] Medical Group Family & Internal Medicine - [address] [phone] Jimmy Doyle DO [address] [place] [phone] 03/22/2025 11:45 AM BORING MACHINE OPERATOR HORIZONTAL Office Visit [facility]-[address] [phone] Abhi Aguilar MD [address] [place] [phone] documented as of this encounter Visit Diagnoses Not on filedocumented in this encounter Additional Health Concerns Infection Onset Date Last Indicated Resolved Time COVID-19 Rule Out 01/13/2022 01/13/2022 01/13/2022 9:32 AM CDT COVID-19 Rule Out 01/13/2022 01/13/2022 01/13/2022 9:59 AM CDT COVID-19 Rule Out 01/27/2023 01/27/2023 01/27/2023 11:28 AM CDT documented as of this encounter Care Teams Production Control Specialist Relationship Specialty Start Date End Date New Referring, Provider PCP - General UNKNOWN PHYSICIAN SPECIALTY 01/25/18 08/18/20 Jimmy Doyle DO [address] [place] [id number] PCP - General FAMILY PRACTICE 08/19/20 documented as of this encounter
--- OUTSIDE RECORDS SUMMARY | 2025-03-03 13:45 | XMS_ITS | Clinical Summary ---
Author Organization [facility] Address [address] [place] [address] Care Team Providers Care Fibreglass Gun Hand Name Role Phone Unavailable Primary Care Provider Unavailabl e Source Comments [facility],non-owned Affiliates and Associated Physician Practices is amultiple site organization consisting of ambulatory clinics and hospital sitesin [place], [place], [place] and [place]. This disclosure is being madepursuant to the Care Everywhere program and may not contain all information available regarding this patient. 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 MANAGED MEDICARE [facility] MEDICA[facility] [place] SELF PAY NO INSURANCE Member Subscriber Plan / Payer (Ef fective for All Dates) Name:Jeniffer Vargas Member ID:Not on file Relation to Subscriber:Not on file Name:JENIFFER VARGAS Subscriber ID:Not on file (Home) Address: [address] [place] [phone] Payer ID:Not on file Group ID:Not on file Type:Self Pay Address: [place], [place] [facility] MANAGED MEDICARE ADV
--- OUTSIDE RECORDS SUMMARY | 2025-03-03 13:45 | XMS_ITS | Patient Health Record ---
Author Organization [facility] [employer] Address [address] [place] [address] Care Team Providers Care Research Development Director Name Role Phone Sulaiman Bermudez Unavailable [phone] Reason For Referral No Information Medications Medication [...] MG Tablet Oral Active Cholecalciferol 1.25 MG (72406 UT) Capsule Oral Active Ofloxacin 0.30% Solution [...] ICOSAPENT ETHYL 1 GRAM CAPSULE *Reorder from [employer] for eRx and Interaction Alerts* Active MiraLax 17 gram Packet Oral *Pick strength-form from [facility] for eRX* Active QUEtiapine Fumarate 300 MG Tablet Oral Active Isosorbide Mononitrate ER 30 MG Tablet Extended Release 24 Hour Oral Active RANOLAZINE ER 500 MG TABLET,EXTENDED RELEASE,12 HR *Reorder from [facility] for eRx and Interaction Alerts* Active Latuda 20 MG Tablet Oral Active Potassium Chloride Sisi ER 10 MEQ Tablet Extended Release Oral Active HYDROcodone-Acetaminophen 7.5-325 MG Tablet Oral Active QUEtiapine Fumarate 50 MG Tablet Oral Active hydroCHLOROthiazide 25 MG Tablet Oral Active ERGOCALCIFEROL (VITAMIN D2) 50 MCG (2,000 UNIT) TABLET *Reorder from [facility] for eRx and Interaction Alerts* [...] Medicare Replacement/ Advantage - Ppo [address] [address] [place] [id number] DANNY VARGAS Self - patient is the insured
--- OUTSIDE RECORDS SUMMARY | 2025-03-03 13:45 | XMS_ITS | Encounter Summary ---
Author Organization [facility] Address [facility] [place] [address] Care Team Providers Care Assistant Executive Housekeeper Name Role Phone Jimmy Doyle Primary Care Provider + Encounter Details Date Type Department Care Team (Late st Contact Info) Description 01/11/2022 Abstract [facility]-[address] [address] Doni Moore MA Social History Tobacco Use [...] Sex Assigned at Female 05/03/2024 9:57 AM MOTOR EQUIPMENT COMMANDING OFFICER Legal Sex Female 4:45 PM CDT Gender Identity Female 05/03/2024 9:57 AM MOTOR EQUIPMENT COMMANDING OFFICER Sexual Orientation Not on file COVID-19 [...] st Contact Info) Description 03/19/2025 11:20 AM MOTOR EQUIPMENT COMMANDING OFFICER Office Visit [facility] Medical Group Family & Internal Medicine - [address] [phone] Jimmy Doyle DO [address] [place] [phone] 03/22/2025 11:45 AM MOTOR EQUIPMENT COMMANDING OFFICER Office Visit [facility]-[address] [phone] Abhi Aguilar MD [address] [place] [phone] documented as of this encounter Goals [...] Total Score: 8 05/13/19 22 10:36 AM MOTOR EQUIPMENT COMMANDING OFFICER documented as of this encounter Care Teams Assistant Executive Housekeeper Relationship Specialty Start Date End Date Jimmy Doyle DO [address] [place] [address] PCP - General FAMILY PRACTICE 08/19/20 documented as of this encounter
--- OUTSIDE RECORDS SUMMARY | 2025-03-03 13:45 | XMS_ITS | Clinical Summary ---
Author Organization [facility] Address [facility] [place] [address] Care Team Providers Care Senior Java Web Application Developer Name Role Phone Jimmy Doyle Primary Care Provide r Derrell Varma MD Unavailable Allergies Active Allergy Reactions Criticality Noted Date [...] on file Legal Sex Female 12:04 PM OPHTHALMOLOGY ASSISTANT Gender Identity Not on file Sexual [...] Plan of Treatment Not on file Insurance PRPA [facility] MEDICARE ADVANTAGE [facility] MEDICARE ADVANTAGE [facility] MEDICARE ADVANTAGE IDPA Advance Directives For more information, please contact: [phone] * Full Code (Latest Code Status on File) Date Activated Date Inactivated Comments 02/09/2022 9:51 PM 02/12/2022 5:52 PM Care Teams Senior Java Web Application Developer Relationship Specialty Start Date End Date Jimmy Doyle DO [address] [place] [phone] PCP - General Family Medicine 02/12/22 Derrell Varma MD [address] [facility] [facility] [address] [place] [address] Surgeon Surgery 02/12/22
--- OUTSIDE RECORDS SUMMARY | 2025-03-03 13:45 | XMS_ITS | Data Portability ---
Author Organization [place] - [facility] OFFICE Address [address] [place] [address] Care Team Providers Care Property Claims Manager Name Role Phone JESUS MACEDO Primary Care [...] By Organization Details Last Modified Time 04/30/2020 74001 Exercise advised Low cholesterol diet advised Low sodium diet advised [email or web address] Not available 04/30/2020 16:38:42 Scribed by Kamila Michele [facility]- [email or web address] Not available 04/30/2020 16:38:44 Reason for [...] bibasiller atelectasis or infection,clinical correlation. Efra Whitman [facility] 05/03/2020 10:01:32 D-dimer Feu, Qn, Ia, Blood : D-dimer 04/01/20:0.37 Efra Whitman [facility] 05/03/2020 09:54:26 Cbc W/ Diff : 04/01/20:WBC 7.6,RBC 4.68,HGB 14.8,HCT 41.8,PLT 251. Efra Whitman [facility] 05/03/2020 09:50:44 Cmp, Serum Or Plasma : 04/02/20:Na 139,K 3.4,Cl 102,CO2 32,GLU 99,BUN 11,Cr 0.6,Mg 2.1 Efra Whitman [facility] 05/03/2020 09:54:26 Lipid Panel, Blood : 04/02/20: TC 167,TG 220,LDL 107,HDL 30. Efra Whitman [facility] 05/03/2020 09:54:26 Problems Name Problem SNOMED Code Status Onset Date Resolution Date Notes Provider Name and Address Organization Details Recorded Time Essential hypertension 87993372 Active 2020 [facility] 15:22:30 Cerebrovascula r accident 722289130 Active 2020 [facility] 15:22:39 Hypercholester olemia 35330539 Active 2020 [facility] 15:22:56 Depressive disorder 06933612 Active 2020 [facility] 15:23:04 Problem Notes None recorded. Procedures Surgical History Date Name Laterality Status Provider Name and Address Organization Details Recorded Time Hysterectomy completed [facility] 04/30/2020 15:24:35 Cholecystectomy completed [facility] 04/30/2020 15:24:43 Imaging Results None recorded. Procedure Notes None recorded. Medical Equipment None Reported. Allergies Allergen ID Allergen Name Allergen Category Reaction Reaction Severity Criticality Documentation Date Start Date Code Code System Note Provider Name and Address Organization Details Recorded Time 89696 sulfobrom ophthalei n sodium medicatio n Not available Not available Not available 04/30/2020 73952 0 RxNorm Renae Edwin [facility], [facility] 15:21:51 57674 tetracycl ine medicatio n Not available Not available Not available 04/30/2020 93327 RxNorm Renae Edwin [facility], [place] [facility] 15:22:03 Medications [...] Last Updated DateTime 165.1 cm 28.3 kg/m2 39783.7 g 84 /min 18 /min 94 % 94 % 97.2 [degF] 170/100 mm[Hg] Renae Guillenmaren [facility] 15:31:15 Social History Question Answer Notes LastModified by Organizat ion Details LastModified Time Tobacco Smoking Status Current Every Day Smoker Renae Pineda kyle [facility] 04/30/2020 15:23:42 Do You Have An Advance Directive? No [place] [address] Information not available 04/30/2020 What Is Your Level Of Caffeine Consumption? None [place] [address] Information not available 04/30/2020 How Much Tobacco Do You Chew? None [place] [address] Information not available 04/30/2020 What Type Of Diet Are You Following? REGULAR [place] [address] Information not available 04/30/2020 Which Illicit Or Recreational Drugs Have You Used? No [facility] Information not available 04/30/2020 Live Alone Or With Others? With Others [place] [address] Information not available 04/30/2020 Marital Status Single [place] [address] Informatio n not available 04/30/2020 How Many Children Do You Have? 1 [place] [address] Information not available 04/30/2020 How Much Tobacco [...] 15:23:38 Medical History Condition Response Hyperlipidemia Y High Cholesterol Y Hypertension Y Gynecological HistoryNo gynecological history recorded. Obstetrics History GPAL:G 0 P 0 0 0 0 Past Encounters Encounter ID Performer Location Encounter Start Date Encounter Closed Date Diagnosis/Indication Diagnosis SNOMED-CT Code Diagnosis ICD10 Code Diagnosis IMO Codes Diagnosis Note [id number] MD Izzy Naqvi Office [address] [place] [facility] [place] [address] 04/30/2020 14:29:44 04/30/2020 15:51:37 Atypical chest pain 075452025 R07.89 Treadmill Myoview Stress test, has high [place] Risk score. Has Known CAD, or CAD risk equivalent . To look for any ischemia. 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 Cessation highly advised Essential hypertension 04871279 I10 Hyperlipidemia 22225117 E78.5 Needs to keep LDL less than 100, and HDL more than 40.Current ly not on statin therapyWil l get fasting lipids for follow-up Peripheral vascular disease 188374988 I73.9 Will get arterial doppler, to evaluate severity of peripheral vascular disease Health Concerns Section Related Observation LastModified by Organization Detai ls LastModified Time None Recorded Concern Status LastModified by Organization Details LastModified Time None Recorded Advance Directives Directive N: Payers Insurance Date Sequence Insurance Name Policy Number Policy Brown Covered Member ID Brown Member ID Guarantor Name 04/27/2020 2 [place] [employer] [place] [employer] Jeniffer Weller [id number] Jeniffer Weller 04/27/2020 1 [place] Jeniffer Weller [id number] Jeniffer Weller Notes Date Note Type Note Provider Name and Address Organization Details Recorded Time 04/30/2020 text/html 04/30/2020 CC: chest pain Patient is a 64-year-old female with a past medical history of HLD, HTN, COPD, and CKD who is seen in cardiac consultation with a chief complaint of chest pain and hospital follow-up. She was admitted to [facility] on 04/01/2020 with chest pain. Her [...] She denies ETOH abuse. Merrick Lin MD [address] [place], [address], [place] [facility] 04/30/2020 16:39:25 OBGyn Episode No OBEpisode recorded.
--- OUTSIDE RECORDS SUMMARY | 2025-03-03 13:45 | XMS_ITS | Encounter Summary ---
Author Organization [facility] Address [address] [place] [address] Care Team Providers Care Manufacturing Quality Technician Name Role Phone Unavailable Primary Care Provider Unavailabl e Encounter Details Date Type Department Care Team (Late st Contact Info) Description 01/28/2022 Lab Requisition [facility] [address] [place] [address] Kathy Mason MD [address] [place], [place] [id number] Illness, unspecified Social History Tobacco Use Types Packs/Day Years Used Date Smoking Tobacco: Never Assessed Comments Unknown Sex and Gender Information Value Date Recorded Sex Assigned at Not on file 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 01/28/2022 12:22 PM CDT [facility] Clinical History HEMATURIA 01/28/2022 12:22 PM CDT [facility] Materials Received One thin prep slide received from [facility] [id number]. All material will be returned. 01/28/2022 12:22 PM CDT [facility] Disclaimer The performance characteristics of all immunohistochemical and indirect immunofluorescence stains (if any) cited in this report were determined by the [facility]. Some of these tests were [...] attending (teaching) pathologist. 01/28/2022 12:22 PM CDT [facility] Case Report Surgical Pathology Report Case: [id number] Authorizing Provider: Kathy Mason MD Collected: 01/28/2022 10:46 AM Ordering Location: [facility] Received: 01/28/2022 10:51 AM Pathologist: Flaquito Bruno MD Specimen: Slide Consultation 01/28/2022 12:22 PM CDT [facility] Embedded Images 01/28/2022 12:22 PM CDT [facility] Pathology/Cytolo gy SURGICAL PATHOLOGY CONSULTATION AND REPORT ON REFERRED SLIDES PREPARED ELSEWHERE / Unknown 01/28/2022 10:46 AM CDT 01/28/2022 10:51 AM CDT Kathy Mason MD LAB - PATHOLOGY/CYTOLOGY ORDERAB LES Final Result [facility] [address] [facility] [place] [address], [facility] [phone] documented in this encounter Visit Diagnoses Diagnosis Illness, unspecified documented in this encounter
--- OUTSIDE RECORDS SUMMARY | 2025-03-03 13:45 | XMS_ITS | Clinical Summary ---
Author Organization [facility] Address [facility] [place] [address] Care Team Providers Care Drapery Hand Name Role Phone Starla Arshad Vladimir QURESHI [...] (25 mcg total) by mouth daily. Active ondansetron (ZOFRAN-ODT) 4 MG disintegrating tabletIndications :Nausea Take 1 tablet (4 mg total) by mouth every 8 (eight) hours as needed for Nausea. 20 tablet 08/01/19 24 Active fluticasone propionate (FLONASE) 50 MCG/ACT [...] daily. 90 tablet 3 06/23/19 25 Active silver sulfADIAZINE (SILVADENE) 1 % cream Apply topically daily. Active valACYclovir (VALTREX) 1 g tabletIndications :Cold sore Take 1 tablet (1,000 mg total) by mouth 2 (two) times daily. Take for 7 days at first sign of flare and then stop. 42 tablet 11/06/19 25 Active icosapent ethyl (VASCEPA) 1 G [...] AT BEDTIME 90 tablet 12/12/19 25 Active nitroglycerin (NITROSTAT) 0.[address] 1 tablet (0.4 mg total) under the tongue every 5 (five) minutes as needed for Chest Pain. Maximum of 3 doses.THEN CALL 911 25 tablet 2 12/19/19 25 Active QUEtiapine (SEROQUEL) 300 MG tabletIndications :Bipolar affective disorder, currently depressed, mild (CMS/HCC HHS/HCC) TAKE 1 TABLET(300 MG) BY MOUTH EVERY NIGHT AT BEDTIME 90 tablet 01/18/20 25 Active oxybutynin XL (DITROPAN-XL) 10 MG 24 hr tabletIndications :Incomplete emptying of bladder TAKE 1 TABLET(10 MG) BY MOUTH EVERY NIGHT AT BEDTIME 90 tablet 01/18/20 25 Active carvedilol (COREG) 12.5 MG tabletIndications :Primary hypertension TAKE 1 TABLET BY MOUTH TWICE DAILY, EVERY 12 HOURS, WITH MEALS OR FOOD 180 tablet 01/18/20 25 Active isosorbide mononitrate ER (IMDUR) 30 MG 24 hr tabletIndications :Primary hypertension TAKE 3 TABLETS(90 MG) BY MOUTH DAILY 270 tablet 1 01/23/20 25 Active HYDROcodone-aceta minophen (NORCO) 10-325 MG tabletIndications :Chronic Pain Take 1 tablet by mouth every 8 (eight) hours as needed for Pain. Indications: Chronic Pain 90 tablet 02/02/20 25 Active hydrocortisone 2.5 % creamIndications: Hemorrhoids, unspecified hemorrhoid type Apply topically 2 (two) times daily. 28 g 02/02/20 25 Active ALPRAZolam (XANAX) 0.5 MG tabletIndications :Anxiety Take 1 tablet (0.5 mg total) by mouth 3 (three) times daily as needed for Anxiety. 90 tablet 02/06/20 25 Active venlafaxine XR (EFFEXOR-XR) 75 MG 24 hr capsuleIndication s:Bipolar affective disorder, currently depressed, mild (CMS/HCC HHS/HCC) Take 1 capsule (75 mg total) by mouth daily. Take with 150 mg capsule daily for total of 225 mg daily 30 capsule 2 02/06/20 25 Active potassium chloride CR (KLOR-CON M) 10 MEQ tabletIndications :Hypopotassemia TAKE 1 TABLET(10 MEQ) BY MOUTH DAILY 90 tablet 02/12/20 25 Active potassium chloride CR (KLOR-CON M) 10 MEQ tabletIndications :Hypopotassemia TAKE 1 TABLET(10 MEQ) BY MOUTH DAILY 90 tablet 11/13/19 25 2024 Discontinued ALPRAZolam (XANAX) 0.5 MG tabletIndications :Anxiety Take 1 tablet (0.5 mg total) by mouth 3 (three) times daily as needed for Anxiety. 90 tablet 01/08/20 25 2024 Discontinued(R eorder) Active Problems Problem Noted Date Diagnosed Date Ureteral cancer, right 08/01/2024 Bipolar affective disorder, currently depressed, mild 05/03/2023 Sedative, hypnotic or anxiolytic dependence, unc omplicated 03/25/2022 PAD (peripheral artery disease) 02/19/2022 Right iliac artery stenosis 02/19/2022 Allergies 07/31/2021 Right lower quadrant abdominal pain 07/31/2021 Tobacco abuse 07/31/2021 Radiculopathy, lumbar region 12/29/2020 Other intervertebral disc degeneration, lumbar r egion 12/29/2020 Spondylolisthesis of lumbar region 12/29/2020 Coronary artery disease of n ative artery of [place] heart with stable angina pectoris 10/01/2020 Degenerative [...] 08/18/2020 Nausea 08/18/2020 Nicotine dependence 08/18/2020 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 08/18/2020 Polyarthritis 08/18/2020 Postmenopausal status 08/18/2020 Primary osteoarthritis of left knee 08/18/2020 Triggering of digit 08/18/2020 Vitamin D deficiency 08/18/2020 Cerebrovascular accident 04/30/2020 Body mass index (BMI) of 28.0 to 28.9 in adult 0 10/12/2018 Low back pain 10/12/2018 Muscle spasm 02/03/2018 Lumbar foraminal stenosis 01/17/2018 Bulging lumbar disc 01/16/2018 Hypertension 01/16/2018 GERD (gastroesophageal reflux disease) 8 Lumbar stenosis 01/16/2018 Osteoarthrosis 01/16/2018 Depressive disorder 01/16/2018 Chronic obstructive pulmonary disease 01/16/2018 Hyperlipidemia 01/16/2018 Resolved Problems Problem Noted Date Diagnosed Date Resolved Date Screening for breast cancer 08/18/2020 08/25/2020 Infiltrate of lung present on chest x-ray 08/18/2020 05/03/2024 Encounter for preventive health examination 02/13/2014 08/25/2020 Encounters Date Type Department Care Team Description 02/21/2025 Scan [facility] Scanned, Doc [facility] 02/20/2025 Telephone [facility] Family & Internal Medicine [address] [phone] Starla Arshad, DO Information 02/12/2025 Scan [facility] INFO SRVCS Scanned, Doc Med Group 02/05/2025 1:20 PM CDT Office Visit [facility] [place] [address] [place] [phone] Starla Arshad, DO Depression; Joint Pain; COPD (3 month both up/Bilateral hip pain) 02/05/2025 12:40 PM CDT Office Visit [facility] [address] [address] Starla Arshad, DO Medicare Wellness 02/05/[address] [address] Starla Arshad, DO Question 02/05/2025 Travel 02/01/[address] [address] Starla Arshad, DO Medication Request 01/07/[address] [address] Starla Arshad, DO Medication Request 12/31/[address] [phone] Starla Arshad, DO Medication Request 12/18/[address] [address] Abhi Aguilar MD Refill Request (NITRO) 12/14/2024 Scan [facility] Scanned, Doc Med Group 12/13/2024 Scan [facility] Scanned, Doc Med Group Image (SCAN); Pathology (SCAN); Procedure (SCAN) 12/06/2024 Scan [facility] INFO [facility] Scanned, Doc Med Group Lab (SCAN) 12/03/2024 Telephone [facility] Family [facility] Internal Medicine [address] [phone] Starla Arshad, Medication Request from Last 3 Months Immunizations Immunization Administration Dates Next Due COVID-19 Vaccine (Generic) 01/27/2023 Fluzone 6 Months+ Quad (0.5 mL Prefilled Syringe) 01/21/2022 Fluzone High Dose (IIV, triv alent, 0.5mL) 01/18/2024 Fluzone High Dose - >Age 65 (Prefilled Syringe) 01/27/2023 Influenza (Generic) 12/25/2020, 7,01/24/2016,2014,02/09/2015,02/15/2014,01/16/2014,0 01/15/2013,05/14/2009 Influenza Adult (Generic) 01/07/2020,01/25/2019, 01/12/2018 PFIZER COVID-19 (12+) MRNA, LNP-S, PF, RINA-SUCROSE, 30 MCG/0.3 ML (COMIRNATY) 02/05/2025 PFIZER COVID-19 (ORIGINAL FORMULATION, PURPLE CAP) mRNA, LNP-S, PF, 30 MCG/0.3 ML DOSE 01/30/2021,07/21/2020,06/30/2020 Pneumococcal (Pneumovax 23) 05/14/2007 Pneumococcal (Prevnar 13) 01/12/2020 Pneumococcal (Prevnar 20) 09/28/2023,12/31/2022 Shingrix 04/06/2021,01/27/2021 Tdap (Adacel) 02/05/2025 Family History Medical History Relation Comments Stroke Father Tuberculosis Maternal Grandmother Heart Disease Mother Dementia Sister Relation Status Comments Father Maternal Grandmother Mother Sister Social History Tobacco Use Types Packs/Day Years Used Date Smoking Tobacco: Every Day Cigarettes 1 55.5 Started: [birth year]/19/1967 Smokeless Tobacco: Never Tobacco Cessation:Ready to Q uit: No; Counseling Given: Yes Comments:trying to quit. 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 Never 10/31/2023 Q2: How many drinks containi ng alcohol do you have on a typical day when you are drinking? Patient does not drink 4 Q3: How often do you have si [...] Sex Assigned at Female 05/03/2024 9:57 AM DRIFT MINER Legal Sex Female 4:45 PM CDT Gender Identity Female 05/03/2024 9:57 AM DRIFT MINER Sexual Orientation Not on file Last Filed Vital Signs Vital Sign Reading Time Taken Comments Blood Pressure 118/60 02/05/2025 1:24 PM CDT Pulse 78 02/05/2025 1:24 PM CDT Temperature 37 C (98.6 F) 02/05/2025 1:24 PM CDT Respiratory Rate 18 02/05/2025 1:24 PM CDT Oxygen Saturation 92% 02/05/2025 1:24 PM CDT Inhaled Oxygen Concentration - - Weight 62.2 kg (137 lb 1.6 oz) 02/05/2025 1:24 P M CDT Height 165.1 cm (5' 5) 02/05/2025 1:24 PM CDT Body Mass Index 22.81 02/05/2025 1:24 PM CDT Plan of Treatment Upcoming Encounters Date Type Department Care Team (Late st Contact Info) Description 03/19/2025 11:20 AM DRIFT MINER Office Visit [facility] Family & Internal Medicine [address] [phone] Starla Arshad, [address] [place] [phone] 03/22/2025 11:45 AM DRIFT MINER Office Visit [facility] [phone] Abhi Aguilar MD [address] [facility] [address] [place] [address] Health Maintenance Due Date Last Done Comments Dexa Scan (General) 2022 Influenza Adult (#1) 2025 01/18/2024, 01/27/2023, 01/21/2022, Additional history exists COVID-19 Vaccine (7 - Pfizer risk 2024- season) 2025 02/05/2025, 01/18/2024, 01/27/2023, Additional history exists Mammogram Screening 11/05/2025 09/09/2020, Postponed from 09/09/2022 (Patient Refused) RSV Immunization or 60+ Years (1 - Risk 60-74 years 1-dose series) 11/05/2025 Postponed fro m 2017 (Going to Outside Clinic) Annual Medicare Wellness Visit 02/06/2026 02/05/2025 DTaP, Tdap and Td Vaccines (2 - Td or Tdap) 02/05/2035 02/05/2025 Colorectal Cancer Screening Colonoscopy (10 Years) 09/10/2098 Postponed from 1957 (Patient Refused) Zoster Vaccines Completed 04/06/2021, 01/27/2021 Hepatitis C Completed 04/05/2023 Pneumococcal Vaccine: 50+ Years Completed 09/28/2023, 12/31/2022, 01/12/2020, Additional history exists PHQ-2 (Physician [place]) Completed 02/05/2025 Hepatitis A Vaccines Aged Out No long er eligible based on patient's age to complete this topic Meningococcal B Vaccine Aged Out No l [...] Procedure Name Priority Date/Time Associated Diagnosis Comments PATHOLOGY GENERIC (SCAN ORDER) 12/13/2024 IMAGE GENERIC 12/13/2024 PROCEDURE GENERIC (SCAN ORDER) 12/13/2024 OUTSIDE LAB (SCAN ORDER) 12/06/2024 HEPATITIS C ANTIBODY Routine 04/05/2023 8:24 AM DRIFT MINER Primary hypertension Screening for lipid disorders Screening for endocrine, metabolic and immunity disorder Annual physical exam Need for hepatitis C screening test MG DIAG W WILMER BILAT DIGI Routine 09/09/2020 12:14 PM CDT Breast lump on left side at 10 o'clock position from Last 3 Months or Most Recently Relevant to Health Maintenance Results * PATHOLOGY GENERIC (SCAN ORDER) (12/13/2024) 12/13/2024 [facility] Scanned SCANNING Final Resu lt * IMAGE GENERIC (12/13/2024) Anatomical Region Laterality Modality Other 12/13/2024 [facility] Scanned SCANNING Final Resu lt * PROCEDURE GENERIC (SCAN ORDER) (12/13/2024) 12/13/2024 [facility] Scanned SCANNING Final Resu lt * OUTSIDE LAB (SCAN ORDER) (12/06/2024) 12/06/2024 [facility] Scanned SCANNING Final Resu lt * HEPATITIS C ANTIBODY (04/05/2023 8:24 AM DRIFT MINER) HEPATITIS C AB NON-REACTI VE NON-REACT RAUL 04/05/2023 6:53 PM DRIFT MINER [facility] Comment: ANTIBODIES TO HCV NOT DETECTED. DOES NOT EXCLUDE THE POSSIBILITY OF EXPOSURE TO HCV. 04/05/2023 8:24 AM DRIFT MINER Starla Arshad DO LABORATORY Final Re sult [facility] [address] [place] [address], [place] [phone] [id number] * MG DIAG W WILMER BILAT DIGI [...] Examination: Bilateral digital diagnostic mammogram with CAD. [id number] Clinical history: Left breast lump and tenderness. [...] demonstrate any discrete solid or cystic mass. [place] appearing tissue architecture is demonstrated. Physical exam surveillance is advised with any further evaluation at this point guided on that basis. From a mammographic standpoint, routine follow-up in one year would seem adequate. These findings were discussed with the patient. Starla Arshad DO MAMMO Final Re sult from Last 3 Months or Most Recently Relevant to Health Maintenance Insurance [facility] MEDICARE MEDICAID Advance Directives * Full Code (Latest Code Status on File) Date Activated Date Inactivated Comments 09/22/2020 12:40 PM 09/23/2020 12:52 PM Care Teams Drapery Hand Relationship Specialty Start Date End Date Starla Arshad DO [address] [place] [id number] PCP - General FAMILY PRACTICE 08/19/20
--- OUTSIDE RECORDS SUMMARY | 2025-03-03 13:45 | XMS_ITS | Encounter Summary ---
Author Organization [facility] Address [facility] [place] [address] Care Team Providers Care Anvilsmith Name Role Phone Jimmy Doyle DO Primary Care Provider + Reason for Referral * Imaging (Routine) - Closed Specialty Diagnoses / Procedures Referred By Contmahogany t Referred To Contact RADIOLOGY Diagnoses Current smoker Cigarette nicotine dependence with other nicotine-induced disorder Tobacco abuse Procedures CT LUNG SCREENING Jimmy Doyle DO [address] [place] [address] Phone: tel: fax: [address] [address] Phone: tel: fax: Referral ID Status Reason Start Date Expiration Date Visits Re quested Visits Authorized [id number] Closed 11/05/2024 11/06/2025 1 1 Reason for Visit * Reason Onset Date Comments Question 11/05/2024 Encounter Details Date Type Department Care Team (Late st Contact Info) Description 11/05/2024 Telephone [facility] Family & Internal Medicine [facility] [address] [place] [address] Jimmy Doyle DO [address] [place] [address] Question Social History Tobacco Use Types Packs/Day Years Used Date Smoking Tobacco: Every Day Cigarettes 1 55.5 Started: [birth year]19/1967 Smokeless Tobacco: Never Comments:trying to quit. 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 Alcohol Use Standard Drinks/Week Comments [...] Sex Assigned at Female 05/03/2024 9:57 AM NETWORK ASSOCIATE Legal Sex Female 4:45 PM CDT Gender Identity Female 05/03/2024 9:57 AM NETWORK ASSOCIATE Sexual Orientation Not on file documented as [...] st Contact Info) Description 03/19/2025 11:20 AM NETWORK ASSOCIATE Office Visit [facility] Family & Internal Medicine - [address] [phone] Jimmy Doyle DO [address] [place] [phone] 03/22/2025 11:45 AM NETWORK ASSOCIATE Office Visit [facility] [phone] Abhi Aguilar MD [address] [place] [address] [place] [phone] Scheduled Orders Name Type Priority Associated Diagnoses [...] Depression Total Score: 10 025 9:55 AM NETWORK ASSOCIATE documented as of this encounter Care Teams Anvilsmith Relationship Specialty Start Date End Date Jimmy Doyle DO [address] [place] [id number] PCP - General FAMILY PRACTICE 08/19/20 documented as of this encounter
[2025-03-03 14:19] LABS: Hematocrit 40.6 % (37.0-47.0); Hemoglobin 14.1 g/dL (12.0-15.0); Immature Granulocyte Percent A 0.3 % (0-0.5); Lymphocytes Absolute Auto 2.34 K/mm3 (0.9-3.2); Mean Corpuscular HGB Conc 34.7 g/dl (32-36); Mean Corpuscular Hemoglobin 32.1 pg (26-34); Mean Corpuscular Volume 92.5 fl (80-100); Nucleated Red Blood Cells Absolute Auto 0.000 K/mm3 (0.0-0.012); Nucleated Red Blood Cells Perc 0.0 % (0.0-0.2); Platelet Count Result 271 k/mm3 (150-375); Red Blood Count 4.39 M/mm3 (4.2-5.4); White Blood Count 6.7 K/mm3 (4.5-10.0)
[2025-03-03 14:34] LABS: Alanine Aminotransferase 18 U/L (6-35); Albumin Level 4.5 g/dL (3.5-5.1); Alkaline Phosphatase 71 U/L (38-126); Anion Gap 8 mmol/L (4-12); Aspartate Amino Transferase 38 U/L (14-36); Bilirubin,Total 0.5 mg/dL (0.2-1.3); Blood Urea Nitrogen 10 mg/dL (7-17); Calcium 9.5 mg/dL (8.4-10.2); Carbon Dioxide 26 mmol/L (22-30); Chloride 104 mmol/L (98-107); Estimated CRCL calculation 67 ml/min; Estimated Glomerular Filt Rate > 60; Glucose 97 mg/dL (65-110); Lipase 48 U/L (23-300); Potassium 3.8 mmol/L (3.4-5.0); Sodium 138 mmol/L (137-145); Total Protein 8.0 g/dL (6.3-8.2)
[2025-03-03] MEDS: SODIUM CHLORIDE 0.9% IV 1,000 ML 999 ML IV CONT (15:13)
[2025-03-03] MEDS: ONDANSETRON INJ 4 MG/2 ML VIAL IV PUSH (15:14)
[2025-03-03 15:25] LABS: Add Urine Microscopic? YES; Appearance Urine Clear (Clear); Glucose Urine UA Negative (Negative); Leukocyte Esterase Ur Trace LEU/UL (Negative); Nitrate Urine Negative (Negative); Non Pathogenic Casts 0-2; Specific Grav Ur 1.015 (1.001-1.035)
--- NOTE | 2025-03-03 16:20 | ED.GENADULT ---
HPI - General Adult General Chief complaint: Nausea/Vomiting/Diarrhea Stated complaint: diarrhea Time Seen by Provider: 03/03/25 14:10 History of Present Illness HPI narrative: 69-year-old female presenting with nausea and diarrhea since Tuesday after dinner. She reports that she has not vomited, denies abdominal pain, melena/ hematochezia, chest pain/ shortness of breath, urinary symptoms, URI symptoms, or fever/chills. Patient endorses she is a pack-a-day smoker for the last 50 years. Related Data Home Medications ?Medication ?Instructions ?Recorded ?Confirmed ?Last Taken ?Type aspirin 81 mg tablet,delayed 81 mg PO DAILY 04/05/19 12/13/24 12/05/24 History release (Aspir-) Held on 12/13/24. Instructions: Resume on 12/14/24. atorvastatin 40 mg tablet (Lipitor) 40 mg PO HS 01/10/21 11/29/24 10/24/24 History isosorbide mononitrate 30 mg 90 mg PO QACLUNCH 01/10/21 11/29/24 10/24/24 History tablet,extended release 24 hr nitroglycerin 0.4 mg sublingual 0.4 mg sublingual PRN CHEST PAIN 01/10/21 11/29/24 05/16/24 History tablet potassium chloride 10 mEq 10 meq PO DAILY 01/10/21 11/29/24 10/24/24 History tablet,extended release (K-Tab) venlafaxine 150 mg See Rx Instructions .Route .COMPLEX 03/02/22 12/13/24 12/13/24 History capsule,extended release 24 hr (Effexor XR) cholecalciferol (vitamin D3) 125 125 mcg PO DAILY 11/12/22 12/13/24 12/05/24 History mcg (5,000 unit) tablet (Vitamin D3) hydrocodone 10 mg-acetaminophen 1 tablet PO PRN PRN pain 06/18/24 12/13/24 12/13/24 History 325 mg tablet oxybutynin chloride 10 mg 10 mg PO HS 06/18/24 11/29/24 10/24/24 History tablet,extended release 24 hr alprazolam 0.5 mg tablet 0.5 mg PO TID PRN anxiety 07/30/24 12/13/24 12/13/24 History carvedilol 12.5 mg tablet 12.5 mg PO BID 07/30/24 12/13/24 12/13/24 History icosapent ethyl 1 gram capsule 2 g PO BID 09/12/24 11/29/24 10/24/24 History quetiapine 300 mg tablet (Seroquel) 300 mg PO HS 09/12/24 11/29/24 10/24/24 History tolterodine 2 mg tablet 2 mg PO Q12H 09/12/24 11/29/24 10/24/24 History Allergies Allergy/AdvReac Type Severity Reaction Status Date / Time Penicillins Allergy Unknown Rash Verified 12/14/24 00:47 Sulfa (Sulfonamide Allergy Unknown Hives Verified 12/14/24 00:47 Antibiotics) sulfanilamide Allergy Unknown Hives Verified 12/14/24 00:47 ciprofloxacin AdvReac Intermediate Shakiness Verified 12/14/24 00:47 amitriptyline (From Elavil) AdvReac Unknown Confusion Verified 12/14/24 00:47 codeine AdvReac Unknown N/V Verified 12/14/24 00:47 tetracycline AdvReac Unknown Nausea Verified 12/14/24 00:47 doxycycline AdvReac Nausea and Verified 12/14/24 00:47 Vomiting Review of Systems Review of Systems: All systems reviewed & are unremarkable except as noted in HPI and below PMFSH Past Medical History Medical History Chronic, continuous use of opioids Bipolar disorder, unspecified CAD (coronary artery disease) Hypertension Emphysema lung Screening for colon cancer Screening for breast cancer Postmenopausal Hx of pancreatitis Depression Kidney stones Kidney disease Urinary frequency High cholesterol Pneumonia Vision abnormalities Weight gain Cholecystectomy planned Anxiety Surgical History Surgical History H/O excision of mass 11/22/22 Excision of 5 cm perianal cyst History of cholecystectomy Hx of tonsillectomy History of partial hysterectomy H/O colonoscopy History of esophagogastroduodenoscopy (EGD) History of laryngoscopy Family History Family History Sibling Patient's brother is in good health Dementia Mother Family history of coronary artery disease Acute myocardial infarction Father Patient's father is Acute myocardial infarction Cerebrovascular accident Unknown Heart disease Cerebrovascular accident Other Family history of mental disorder Social History Social History Smoking packs per day: 1 Smoking cigarettes per day: 20.0 Years smoked: 50 Smoking pack-years: 50.00 Smoking status: Current every day smoker Tobacco type: cigarettes Second hand tobacco smoke exposure: No Alcohol intake: never Substance use: current Substance use type: marijuana Other substance usage details: Daily Last use: 03/02/22 Lack of Transportation: No Lack of Food: Never True Current Housing: I Have Housing Concerned About Future Housing: No Difficulty Paying Gas/Electric Bills: No Difficulty Paying for Meds: No Currently Unemployed: No Education: Decline to Answer Difficulty w/ Childcare or Family Care: No Living arrangements: alone Spiritual care concerns: No Exam Narrative: GENERAL: Sick-appearing, well-nourished, and in no acute distress. HEAD: Normocephalic, atraumatic. EYES: PERRLA and EOMI. ENT: Nares clear, no rhinorrhea or epistaxis. Mucous membranes moist. Oropharynx without tonsillar hypertrophy exudate or other lesions. Bilateral TMs pearly baldwin non-bulging NECK: Supple. No adenopathy or masses. No carotid bruits or JVD CHEST: Clear to auscultation. No respiratory distress. No wheezes rales or rhonchi HEART: Regular rate and rhythm. No murmur heard. Normal peripheral pulses. ABDOMEN: Soft, nontender, nondistended, normal active bowel sounds. EXTREMITIES: Normal range of motion. No edema. SKIN: Warm, dry, no rash. NEURO: No focal deficits. Alert and oriented x3. PSYCH: Normal mood and affect Course Vital Signs Vital signs: Vital Signs Temperature 97.7 F 03/03/25 13:43 Pulse Rate 76 03/03/25 13:43 Respiratory Rate 18 03/03/25 13:43 Blood Pressure 177/80 H 03/03/25 13:43 Pulse Oximetry 95 03/03/25 13:43 Oxygen Delivery Room Air 03/03/25 13:43 Temperature 97.7 F 03/03/25 13:43 Pulse Rate 76 03/03/25 13:43 Respiratory Rate 18 03/03/25 13:43 Blood Pressure 177/80 H 03/03/25 13:43 Pulse Oximetry 95 03/03/25 13:43 Oxygen Delivery Room Air 03/03/25 13:43 Medical Decision Making MDM Narrative Medical decision making narrative: 69-year-old female presenting with nausea and diarrhea since Tuesday after dinner. She reports that she has not vomited, denies abdominal pain, melena/ hematochezia, chest pain/ shortness of breath, urinary symptoms, URI symptoms, or fever/chills. Patient endorses she is a pack-a-day smoker for the last 50 years. Patient's abdomen is soft without significant pain or signs of surgical abdomen on serial exams. Labs are stable. CT demonstrates mild gastritis. Patient given Zofran and 1 L of fluids. Patient reported improvement. Lab and CT evaluations are reviewed and patient is felt to be a reasonable candidate for outpatient management. Patient was instructed as to limitations of CT and laboratory evaluation and encouraged to follow with PCP for further evaluation. She is already prescribe Zofran outpatient. Patient agrees with discussion and after shared medical decision making agrees with plan of care. All questions were answered to the patient's satisfaction. Given reasons to return to the ED. Medical Records Medical records reviewed: Yes I reviewed the external patient's medical records. Vital Signs Vital Signs: Vital Signs Temperature 97.7 F 03/03/25 13:43 Pulse Rate 76 03/03/25 13:43 Respiratory Rate 18 03/03/25 13:43 Blood Pressure 177/80 H 03/03/25 13:43 Pulse Oximetry 95 03/03/25 13:43 Oxygen Delivery Room Air 03/03/25 13:43 Temperature 97.7 F 03/03/25 13:43 Pulse Rate 76 03/03/25 13:43 Respiratory Rate 18 03/03/25 13:43 Blood Pressure 177/80 H 03/03/25 13:43 Pulse Oximetry 95 03/03/25 13:43 Oxygen Delivery Room Air 03/03/25 13:43 Lab Data Lab results reviewed: Yes I reviewed the patient's lab results. 03/03/25 14:12 03/03/25 14:12 Labs: Lab Results 03/03/25 03/03/25 Range/Units 14:12 15:14 WBC 6.7 (4.5-10.0) K/mm3 RBC 4.39 (4.2-5.4) M/mm3 Hgb 14.1 (12.0-15.0) g/dL Hct 40.6 (37.0-47.0) % MCV 92.5 (80-100) fl MCH 32.1 (26-34) pg MCHC 34.7 (32-36) g/dl RDW 12.9 (11.5-14.5) % Plt Count 271 (150-375) k/mm3 MPV 8.5 (7.4-10.4) fl Immature Gran % (Auto) 0.3 (0-0.5) % Neut % (Auto) 50.8 (45.5-73.1) % Lymph % (Auto) 34.8 (18.3-44.2) % [place] % (Auto) 8.3 (2.6-8.5) % Eos % (Auto) 5.1 H (0-4.4) % Baso % (Auto) 0.7 (0.2-1.2) % Lymph # (Auto) 2.34 (0.9-3.2) K/mm3 [place] # (Auto) 0.6 (0.1-0.6) K/mm3 Eos # (Auto) 0.3 (0-0.3) K/mm3 Baso # (Auto) 0.1 (0.0-0.1) K/mm3 Abs Immat Gran (auto) 0.02 (0.00-0.031) K/mm3 Absolute Neuts (auto) 3.4 (1.3-6.7) K/mm3 Absolute Nucleated RBC 0.000 (0.0-0.012) K/mm3 Nucleated RBC % 0.0 (0.0-0.2) % Sodium 138 (137-145) mmol/L Potassium 3.8 (3.4-5.0) mmol/L Chloride 104 (98-107) mmol/L Carbon Dioxide 26 (22-30) mmol/L Anion Gap 8 (4-12) mmol/L BUN 10 (7-17) mg/dL Creatinine 0.57 L (0.7-1.0) mg/dL Estim Creat Clear Calc 67 ml/min Estimated GFR > 60 (59 - ) Glucose 97 (65-110) mg/dL Calcium 9.5 (8.4-10.2) mg/dL Total Bilirubin 0.5 (0.2-1.3) mg/dL AST 38 H (14-36) U/L ALT 18 (6-35) U/L Alkaline Phosphatase 71 (38-126) U/L Total Protein 8.0 (6.3-8.2) g/dL Albumin 4.5 (3.5-5.1) g/dL Lipase 48 (23-300) U/L Urine Color Yellow (Yellow) Urine Appearance Clear (Clear) Urine pH 6.5 (5.0-9.0) Ur Specific [place] 1.015 (1.001-1.035) Urine Protein Negative (Negative) mg/dL Urine Glucose (UA) Negative (Negative) mg/dL Urine Ketones Negative (Negative) mg/dL Ur Blood (Man) Negative (Negative) Urine Nitrate Negative (Negative) Urine Bilirubin Negative (Negative) Urine Urobilinogen 0.2 (<2.0) mg/dL Leukocyte Esterase Rfl Trace H (Negative) BRITTANI/UL Urine RBC 0-2 (0-2) /hpf Urine WBC 0-5 (0-3) /hpf Ur Squamous Epith Cells None seen (Few) /hpf Urine Bacteria None seen /hpf Urine Casts 0-2 Imaging Data Attestation: I personally reviewed and interpreted this imaging study as follows: Radiologist's impression: ITS Impressions Abdomen/Pelvis CT 03/03/25 15:46 IMPRESSION: Mild gastritis. Findings Critical Care Time Critical Care Time Critical Care Time: No Discharge Plan Discharge Clinical Impression: Gastroenteritis Patient Disposition: Home Condition: Stable Instructions: Gastroenteritis (ED) Additional Instructions: Return to the emergency department if you experience fever, abdominal pain with nausea and vomiting, pain or burning with urination, you are unable to keep down any liquids or solids, or any other symptoms that are concerning to you Small, frequent meals. [place] diet. Hydrate with Gatorade and water. Zofran as needed for nausea Follow-up with your primary care doctor Patient Language: Mal[place]ian Prescriptions: No Action atorvastatin [Lipitor] 40 mg Tablet 40 mg PO HS isosorbide mononitrate 30 mg Tablet Extended Release 24 Hr 90 mg PO QACLUNCH potassium chloride [K-Tab] 10 mEq Tablet Extended Release 10 meq PO DAILY nitroglycerin 0.4 mg Tablet, Sublingual 0.4 mg SUBLINGUAL PRN aspirin [Aspir-81] 81 mg tablet,delayed release (DR/EC) 81 mg PO DAILY Patient Comments: LAST DOSE 09/19/24 ON HOLD venlafaxine [Effexor XR] 150 mg capsule,extended release 24hr See Rx Instructions .ROUTE .COMPLEX Patient Comments: QAM Rx Instructions: TAKE 1 CAPSULE BY MOUTH DAILY ranolazine [Ranexa] 500 mg Tablet Extended Release 12 Hr 500 mg PO Q12HR 30 Days Qty: 60 0RF oxybutynin chloride 10 mg tablet extended release 24hr 10 mg PO HS Rx Instructions: Take 1 tablet (10 mg total) by mouth nightly at bedtime. hydrocodone-acetaminophen 10-325 mg tablet 1 tablet PO PRN PRN (Reason: pain) Rx Instructions: Take 1 tablet by mouth every 8 (eight) hours as needed. Indications: Chronic Pain docusate sodium [Colace] 100 mg capsule 100 mg PO DAILY Qty: 30 0RF cholecalciferol (vitamin D3) [Vitamin D3] 125 mcg (5,000 unit) Tablet 125 mcg PO DAILY alprazolam 0.5 mg tablet 0.5 mg PO TID PRN (Reason: anxiety) carvedilol 12.5 mg tablet 12.5 mg PO BID Rx Instructions: must administer with a meal/food ondansetron 4 mg tablet,disintegrating 4 mg PO Q6H PRN (Reason: nausea and vomiting) Qty: 10 0RF tolterodine 2 mg tablet 2 mg PO Q12H icosapent ethyl 1 gram capsule 2 g PO BID Rx Instructions: Take 2 capsules (2 g total) by mouth 2 (two) times daily with meals. quetiapine [Seroquel] 300 mg tablet 300 mg PO HS ondansetron 4 mg tablet,disintegrating 4 mg PO Q8H PRN (Reason: nausea and vomiting) Qty: 20 1RF cephalexin 500 mg capsule 500 mg PO Q12H Qty: 10 0RF phenazopyridine 200 mg tablet 200 mg PO TID Qty: 6 0RF hydrochlorothiazide 25 mg tablet 25 mg PO DAILY Qty: 90 1RF Patient Comments: QAM Follow-up/Referrals: Vivek,DO Jimmy [Primary Care Provider]
== END 2025-03-03 16:15 | disposition home or self-care (01) ==
PROVIDERS: Student in an Organized Health Care Education/Training Program; PCP Student in an Organized Health Care Education/Training Program
DX: K52.9 Noninfective gastroenteritis and colitis, unspecified (principal); I25.10 Atherosclerotic heart disease of native coronary artery without angina pectoris; I10 Essential (primary) hypertension; J43.9 Emphysema, unspecified; E78.00 Pure hypercholesterolemia, unspecified; N28.9 Disorder of kidney and ureter, unspecified; F41.9 Anxiety disorder, unspecified; F31.9 Bipolar disorder, unspecified; F17.210 Nicotine dependence, cigarettes, uncomplicated; Z87.442 Personal history of urinary calculi; Z87.01 Personal history of pneumonia (recurrent); Z90.49 Acquired absence of other specified parts of digestive tract; Z90.711 Acquired absence of uterus with remaining cervical stump; Z79.82 Long term (current) use of aspirin; Z79.899 Other long term (current) drug therapy
CPT/HCPCS: 36415; 74177; 80053; 81001; 83690; 85025; 96361; 96374; 99284; J2405; J7030; Q9967